=== PATIENT | female | born 1945 | race Caucasian/White ===

== ENCOUNTER → 2017-10-21 13:47 | Outpatient (CLI) | payer MEDICARE, OTHER, SELFPAY ==
[2017-10-21 16:11] LABS: Anion Gap 14 (5-15); BUN 43 mg/dL (7-18); BUN/Creat Ratio 22.5 RATIO (10-20); Calcium,Total 9.3 mg/dL (8.5-10.1); Chloride 105 mmol/L (98-107); Cholesterol 180 mg/dL (200); Creatinine, Serum 1.91 mg/dL (0.55-1.02); EST Glomerular Filtration Rate 27 mL/min (>60); Est Glom Filt Rate - Afr Amer 33 mL/min (>60); Glucose 99 mg/dL (74-106); High Density Lipoprotein 55 mg/dL; Potassium 3.4 mmol/L (3.5-5.1); Sodium Level 142 mmol/L (136-145); Thyroid Stim Hormone (TSH) 0.54 uIU/mL (0.358-3.74); Triglycerides 491 mg/dL; Uric Acid 11.6 mg/dL (2.6-6.0)
== END ==
PROVIDERS: Family Provider Family Medicine; PCP Family Medicine; Visit Provider Family Medicine
DX: I10 Essential (primary) hypertension (principal); E03.9 Hypothyroidism, unspecified; M10.9 Gout, unspecified
CPT/HCPCS: 36415; 80048; 80061; 84443; 84550

== ENCOUNTER → 2018-07-06 14:46 | Outpatient (CLI) | payer MEDICARE, OTHER, SELFPAY ==
[2018-07-06 16:24] LABS: Cholesterol 171 mg/dL (200); High Density Lipoprotein 61 mg/dL; Triglycerides 246 mg/dL; Very Low Density Lipoprotein 49 mg/dL (5-40)
== END ==
PROVIDERS: Family Provider Family Medicine; PCP Family Medicine; Referring Provider Family Medicine; Visit Provider Family Medicine
DX: E78.5 Hyperlipidemia, unspecified (principal)
CPT/HCPCS: 36415; 80061

== ENCOUNTER → 2018-10-26 14:03 | Outpatient (CLI) | payer MEDICARE, OTHER, SELFPAY ==
--- NOTE | 2018-10-26 14:10 | RAD_ITS ---
STUDY: X-RAY - LUMBAR SPINE REASON FOR EXAM: Female, 73 years old. Pain TECHNIQUE: 5 view(s) of the lumbar spine were obtained. COMPARISON: 07/23/2014 FINDINGS: There is no evidence of fracture or dislocation in the lumbar spine. There is stable scoliosis noted in the lumbar spine. There are stable moderate degenerative changes which are most pronounced at L1/L2. Again noted are atherosclerotic calcifications in the aorta. RAD/L/S Spine Min 4 Views IMPRESSION: No fracture or dislocation in the lumbar spine. Stable scoliosis and degenerative changes. Electronically Signed: Oh Aquino, at 14:45 EDT Tel , Service support ,
== END ==
PROVIDERS: Family Provider Family Medicine; PCP Family Medicine; Referring Provider Family Medicine; Visit Provider Family Medicine
DX: M54.5 Low back pain (principal)
CPT/HCPCS: 72110

== ENCOUNTER → 2019-01-02 14:25 | Outpatient (CLI) | payer MEDICARE, OTHER, SELFPAY ==
[2019-01-02 16:20] LABS: Anion Gap 6 (5-15); BUN 52 mg/dL (7-18); BUN/Creat Ratio 28.1 RATIO (10-20); Calcium,Total 8.9 mg/dL (8.5-10.1); Chloride 104 mmol/L (98-107); Cholesterol 192 mg/dL (200); Creatinine, Serum 1.85 mg/dL (0.55-1.02); EST Glomerular Filtration Rate 28 mL/min (>60); Est Glom Filt Rate - Afr Amer 34 mL/min (>60); Glucose 95 mg/dL (74-106); High Density Lipoprotein 65 mg/dL; Potassium 4.1 mmol/L (3.5-5.1); Sodium Level 139 mmol/L (136-145); Thyroid Stim Hormone (TSH) 0.33 uIU/mL (0.358-3.74); Triglycerides 205 mg/dL; Very Low Density Lipoprotein 41 mg/dL (5-40)
== END ==
PROVIDERS: Family Provider Family Medicine; PCP Family Medicine; Referring Provider Family Medicine; Visit Provider Family Medicine
DX: E03.9 Hypothyroidism, unspecified (principal); E78.5 Hyperlipidemia, unspecified
CPT/HCPCS: 36415; 80048; 80061; 84443

== ENCOUNTER → 2019-01-30 11:02 | Outpatient (CLI) | payer MEDICARE, OTHER, SELFPAY ==
--- NOTE | 2019-01-30 11:07 | RAD_ITS ---
STUDY: X-RAY - RIGHT HUMERUS REASON FOR EXAM: Female, 74 years old. Trauma pain TECHNIQUE: 3 view(s) of the humerus. COMPARISON: None. FINDINGS: Normal visualized humerus. There is no demonstrated fracture or osseous destructive process. There is no demonstrated soft tissue abnormality. Sternotomy wires are present. RAD/Humerus min 2 Views IMPRESSION: Normal x-ray examination of the humerus. Electronically Signed: More Trejo, at 19:30 EST Tel , Service support ,
--- NOTE | 2019-01-30 11:09 | RAD_ITS ---
STUDY: X-RAY - RIGHT SHOULDER REASON FOR EXAM: Female, 74 years old. Trauma pain TECHNIQUE: 4 view(s) of the shoulder. COMPARISON: None. FINDINGS: Normal glenohumeral articulation. Normal acromioclavicular joint. Normal acromion. Normal humeral head and visualized proximal humerus. The soft tissue structures are unremarkable. There is questionable increased opacity in the right lung, unclear significance. Sternotomy wires are present. RAD/Shoulder min 2 Views IMPRESSION: Normal x-ray examination of the shoulder. Questionable right lung opacity, refer to dedicated chest imaging. Electronically Signed: More Trejo, at 19:11 EST Tel , Service support ,
== END ==
PROVIDERS: Family Provider Family Medicine; PCP Family Medicine; Referring Provider Family Medicine; Visit Provider Family Medicine
DX: M25.511 Pain in right shoulder (principal); W19.XXXA Unspecified fall, initial encounter
CPT/HCPCS: 73030; 73060

== ENCOUNTER → 2019-02-22 13:27 | Outpatient (CLI) | payer MEDICARE, OTHER, SELFPAY ==
[2019-02-22 13:07] VITALS: BMI 41.1
--- NOTE | 2019-02-22 13:29 | RAD_ITS ---
HISTORY: PAIN, RECENT FALL. GRASHEY VIEW ONLY PER ORDER ADDITIONAL HISTORY: None provided. TECHNIQUE: Right shoulder one view Number of images including paperwork: 1 COMPARISON: 01/30/2019 FINDINGS: BONES: No acute fracture. JOINTS: No subluxation. Mild degenerative changes of the glenohumeral joint. SOFT TISSUES: No distinct foreign body. Sternal wires. RAD/Shoulder One View IMPRESSION: No acute osseous abnormality. at [id number] Reported and signed by: Selena Ku MD Electronically Signed: Selena Ku MD at 4:19 EST Tel , Service support ,
== END ==
PROVIDERS: Family Provider Family Medicine; PCP Family Medicine; Referring Provider Orthopaedic Surgery; Visit Provider Orthopaedic Surgery
DX: S49.91XA Unspecified injury of right shoulder and upper arm, initial encounter (principal)
CPT/HCPCS: 73020

== ENCOUNTER 2019-03-03 13:00 | Outpatient (RCR) | payer MEDICARE, OTHER, SELFPAY ==
--- NOTE | 2019-02-13 14:56 | HP.PTEVAL ---
Patient's Visit Information CHANNING CANCHOLA is a 74 year old F referred to Physical Therapy by Kishore Ricci MD with a diagnosis of R shoulder pain. Date of Evaluation: 02/13/19 Physical Therapist: Beltran Self PT, ATC - Visit Plan Frequency: 2-3x /Week Duration: 4-6 Weeks Plan: R shoulder strengthening (rot cuff), scap stab ex's, UBE, and HEP - Subjective Findings: Pt reports she fell in the [employer] parking lot 2 weeks ago which resulted in an abrasion to her L knee and pain in her R shoulder. Pt reports no PMHx of R shoulder trauma other than having shingles in that region. Pt reports she is feeling better, but notes it is very difficult for her to sleep and to get dressed secondary to R shoulder pain. No R UE tingling or numbness at this time. Pt is L hand dominant. Pt reports she had 3 falls in 5 days due to nicko on a high level of gabapentin for her LBP. Pt has had other falls in the past which were due to low blood pressure levels. Pt ambulates with the use of a quad cane for stability. 4/10 pain at rest, 7/10 pain at worst. - Pain R shoulder pain Pain Intensity (Out of 10): 4 Pain Intensity Range: 7 - Objective Neuro: B UE sensation is WNL to light touch. B bicepital reflex= 2/3. Palpation: Pt is very sore on the posterior and lateral aspects of R shoulder. No obvious deformity at this time. ROM: L shoulder flex= 80, abd= 60, ER= 20, IR min meraz; R shoulder flex= 60, abd= 60, ER= 55, IR min limited. MMT: R shoulder is grossly 3/5 and painful with all testing. Special tests: pos empty can - Goals Goal 1:: Decrease R shoulder pain x 50% to aid with sleep Goal Time Frame: 4-6 Weeks Goal 2:: Increase R shoulder flexion and abduction ROM x 30 degrees to aid with overhead activity Goal Time Frame: 4-6 Weeks Goal 3:: Increase R shoulder strength x 1 grade to aid with IADL's Goal Time Frame: 4-6 Weeks Goal 4:: I with HEP Goal Time Frame: 4-6 Weeks - Rehabilitation Potential Physical Therapy Diagnosis: R shoulder pain, weakness, and limited ROM secondary to R shoulder strain. Rehabilitation Potential: Good - Anticipated Interventions Patient/Client Instruction: Educate patient on: Condition, Plan of Care For the Purpose of:: To improve self management Therapeutic Exercise to Include: Strength training, Endurance training, Postural training, Flexibilty training, Active ROM, Scapular Strength/Stabilization For the Purpose of:: To decrease pain, To increase ROM, To improve muscle performance and motor function Cryotherapy (ice pack, ice massage): Yes For the Purpose of:: To decrease pain Thank you for the opportunity to evaluate your patient. For Medicare and Medicare HMO plans, please review the plan of care and approve it. It will need to be FAXED BACK to us at [phone] for Medicare purposes. For Medicare only, by signing this I certify the plan of care. Please let me know if there are questions or concerns regarding this plan of care. Physician Signature: Date:
--- NOTE | 2019-04-03 14:28 | HP.PT.NRP ---
HP - Discharge Summary (1) - Patient Information CHANNING CANCHOLA was seen in my office for initial evaluation on 02/13/19. The following Plan of Care was established for this patient: Initial Frequency: 2-3x /Week Initial Duration: 4-6 Weeks - Anticipated Interventions Patient/Client Instruction: Educate patient on: Condition, Plan of Care For the Purpose of:: To improve self management Therapeutic Exercise to Include: Strength training, Endurance training, Postural training, Flexibilty training, Active ROM, Scapular Strength/Stabilization For the Purpose of:: To decrease pain, To increase ROM, To improve muscle performance and motor function Cryotherapy (ice pack, ice massage): Yes For the Purpose of:: To decrease pain This patient was last seen in our office . Pertinent comments regarding their Physical therapy will appear below: Pt phoned the clinic on todays date to report that she is feeling better now and wants to be discharged. At this point I will be discontinuing this patient from physical therapy. I would be happy to see this patient again in the future if found appropriate by the physician. Thank you! Beltran Self, PT, ATC
== END 2019-03-03 19:00 | disposition home or self-care (01) ==
LOC: PT 13:00
PROVIDERS: Family Provider Family Medicine; PCP Family Medicine; Referring Provider Family Medicine; Visit Provider Family Medicine
DX: M25.519 Pain in unspecified shoulder (principal)
CPT/HCPCS: 97110; 97161; 97530

== ENCOUNTER → 2019-04-26 14:08 | Outpatient (CLI) | payer MEDICARE, OTHER, SELFPAY ==
[2019-02-22 13:07] VITALS: BMI 41.1
[2019-04-26 16:40] LABS: Free T3 2.6 pg/mL (2.18-3.98); T4 Total, Thyroxin 13.3 ug/dL (4.8-13.9); Thyroid Stim Hormone (TSH) 0.37 uIU/mL (0.358-3.74)
== END ==
PROVIDERS: PCP Family Medicine; Referring Provider Family Medicine; Visit Provider Family Medicine
DX: E03.9 Hypothyroidism, unspecified (principal)
CPT/HCPCS: 36415; 84436; 84443; 84481

== ENCOUNTER → 2019-09-06 | Outpatient (CLI) | payer MEDICARE, OTHER, SELFPAY ==
[2019-02-22 13:07] VITALS: BMI 41.1
--- NOTE | 2019-09-06 16:51 | RAD_ITS ---
STUDY: X-RAY - LEFT FOOT CLINICAL: Female, 74 years old. Left foot pain, fall -- 1st 2 images done weightbearing (per order) pt could no longer stand and sat down for lateral TECHNIQUE: 3 view(s) of the foot. COMPARISON: None. FINDINGS: Normal talus and tarsal bones. Small calcaneal spurs Normal visualized subtalar, talonavicular, calcaneocuboid, tarsal and tarsometatarsal articulations. Normal metatarsi. Normal metatarsophalangeal joint of the great toe. Normal tibial and fibular sesamoid bones. Normal interphalangeal joint of the great toe. Normal phalanges of the great toe. Normal second through fifth metatarsophalangeal joints. Mild PIP and DIP joint arthrosis. The soft tissue structures are unremarkable. 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 No demonstrated fracture or suspicious osseous lesion. Electronically Signed: Rubén Chawla MD at 7:52 EDT , Service support ,
== END | disposition home or self-care (01) ==
PROVIDERS: PCP Family Medicine; Referring Provider Family Medicine; Visit Provider Family Medicine
DX: S99.929A Unspecified injury of unspecified foot, initial encounter (principal)
CPT/HCPCS: 73630

== ENCOUNTER → 2019-09-22 08:23 | Outpatient (CLI) | payer MEDICARE, OTHER, SELFPAY ==
[2019-02-22 13:07] VITALS: BMI 41.1
--- NOTE | 2019-09-22 08:26 | CT_ITS ---
STUDY: CT BRAIN WITHOUT CONTRAST REASON FOR EXAM: Female, 74 years old. IMBALANCE RADIATION DOSAGE (If Supplied By Facility): CTDIvol = ( 44.99 ) mGy, DLP = ( 762.36 ) mGycm TECHNIQUE: Transaxial CT imaging of the brain was performed without administration of intravenous contrast material. Individualized dose optimization techniques were used for this CT. COMPARISON: No relevant priors. FINDINGS: Normal soft tissue structures. Normal calvarium. There is mild cerebral atrophy with widening of the extra-axial spaces and ventricular dilatation. There are areas of decreased attenuation within the white matter tracts of the supratentorial brain, consistent with microvascular disease changes. Normal basal ganglia and thalami. Normal brainstem. Normal cerebellum. There is no intracranial hemorrhage. There are no findings of an acute ischemic infarction. Normal visualized paranasal sinuses. CT/Brain/Head without Contrast IMPRESSION: Chronic involutional changes of the brain. Electronically Signed: Rupert Ann, at 9:09 EDT , Service support ,
== END ==
PROVIDERS: PCP Family Medicine; Referring Provider Family Medicine; Visit Provider Family Medicine
DX: R26.89 Other abnormalities of gait and mobility (principal)
CPT/HCPCS: 70450

== ENCOUNTER 2019-10-24 13:30 | Outpatient (RCR) | payer MEDICARE, OTHER, SELFPAY ==
[2019-02-22 13:07] VITALS: BMI 41.1
--- NOTE | 2019-10-09 15:00 | HP.PTEVAL ---
Patient's Visit Information CHANNING CANCHOLA is a 74 year old F referred to Physical Therapy by Dr. Kishore Ricci MD with a diagnosis of Balance issues. Date of Evaluation: 10/09/19 Physical Therapist: Rodrick Coker DPT, OCS, CSCS - Visit Plan Frequency: 2x /Week Duration: 4-6 Weeks Plan: 2x/week for 4-6 weeks for... 1. VOR balance. 2. foam balance and/or ec. 3. Gait training for safety and distance. 4/ Progression of HEP of balance, VOR and LE /postural strength to an I HEP when safety allows. - Subjective Del presents with dtr today. Because she keeps falling. Had shingles a few years ago in R arm and into ear causing vestibualr problems. Since then has had problems with falling. Gets unsteady but denies spinning. No spinning in 3 weeks ago without reason. Wa attempting to make bed when she fell 3 weeks ago. Use wh walker at all times for last couple months due to falls. Had to hold on when walking. can get off floor herself. No neuropathy. Lives alone on [facility] of [facility] with electric chair to basement. Does basic cooign adn cleaning herself and it takes a while, needs frequent rests. Dresses self, bathroom I. Shower with walkin and stool. No pain. Has LBP at times not currently. Soemtimes B shoulder pain, not currently. No exercises at home. uses pedal machine for legs. - Objective Pt walks with wh walker hunched over adn relying on it for balance and holding herself up tall. Trasnfers out of chair easily without UE. Steps require B UE and wear her out quick avoiding FW weight shift. LE AROM WFL except DF and HS whcih are very tight. reflexes 2/3 patella and achilles. Sensation WNL to gross light touch in LE B. Coordination to reciprocal toe taps and heel taps good. Heel to rowe is good. VOR walking is a challenge adn VOR seated has trouble keeping eyes ont arget with R head rotations. Strength LE 4- ankles, 4 knees, 3+ hip abd , ext and LB extensiors. Max tired adn mild SOB after 300 feet of walking, steps without walker which was safe at first on firm flat surface but less so at end with fatigue adn hunched FW. Pt describes unsteadiness as dizzyness but has no spinning today and I am unable to ellicit with position changes or head mvoements. - Balance Scores Functional Gait Assessment Score: 21 % Disability: 30.0000 CATSIB Score (Max score 120 seconds): 72 - Goals Goal 1:: Walk 300 feet at HP without wh walker or hunching over I. Goal Time Frame: 4-6 Weeks Goal 2:: 25/30 FGA to minimize fall risk. Goal Time Frame: 4-6 Weeks Goal 3:: I approp HEP to minimize future problems with balance Goal Time Frame: 4-6 Weeks Goal 4:: Pt feel 75% better with fatigue adn balance Goal Time Frame: 4-6 Weeks - Rehabilitation Potential Physical Therapy Diagnosis: Balance issues Rehabilitation Potential: Fair - Anticipated Interventions Patient/Client Instruction: Educate patient on: Condition, Plan of Care For the Purpose of:: To improve muscle performance and motor function, To increase tolerance to activity/condition/position, To improve ability of physical actions for home/community/work/leisure, To improve gait and locomotor functions, To improve safety with gait Therapeutic Exercise to Include: Strength training, Balance training, Coordination, Postural training, Flexibilty training, Gait and locomotor training For the Purpose of:: To improve gait and locomotor functions, To improve safety with gait Thank you for the opportunity to evaluate your patient. For Medicare and Medicare HMO plans, please review the plan of care and approve it. It will need to be FAXED BACK to us at [phone] for Medicare purposes. For Medicare only, by signing this I certify the plan of care. Please let me know if there are questions or concerns regarding this plan of care. Physician Signature: Date:
--- NOTE | 2019-12-21 10:01 | HP.PT.NRP ---
CHANNING CANCHOLA was seen in my office for initial evaluation on 10/09/19. The following Plan of Care was established for this patient: Initial Frequency: 2x /Week Initial Duration: 4-6 Weeks Patient/Client Instruction: Educate patient on: Condition, Plan of Care For the Purpose of:: To improve muscle performance and motor function, To increase tolerance to activity/condition/position, To improve ability of physical actions for home/community/work/leisure, To improve gait and locomotor functions, To improve safety with gait Therapeutic Exercise to Include: Strength training, Balance training, Coordination, Postural training, Flexibilty training, Gait and locomotor training For the Purpose of:: To improve gait and locomotor functions, To improve safety with gait This patient was last seen in our office 10/24/19. Pertinent comments regarding their Physical therapy will appear below: Pt seen 4 visits of POC but cancelled/did not attend the rest of the POC. at this point, it has been over 6 weeks adn I will discontinue due to nonattendance. At this point I will be discontinuing this patient from physical therapy. I would be happy to see this patient again in the future if found appropriate by the physician. Thank you! Rodrick Coker, DPT, OCS, CSCS
== END 2019-10-24 19:00 | disposition home or self-care (01) ==
LOC: PT 13:30
PROVIDERS: PCP Family Medicine; Visit Provider Family Medicine
DX: R26.9 Unspecified abnormalities of gait and mobility (principal)
CPT/HCPCS: 97110; 97162

== ENCOUNTER 2019-11-30 14:11 | Inpatient (IN) | payer MEDICARE, OTHER, SELFPAY ==
[2019-02-22 13:07] VITALS: BMI 41.1
[2019-11-30] VITALS (12 sets, daily range): BP systolic 110–137; BP diastolic 51–80; PULSE 58–81; RESP 16–20; TEMP 36.2–37.1; O2SAT 86–100; BMI 42.4
[2019-11-30 09:23] LABS: International Normalized Ratio 1.7; Prothrombin Time (Protime)PT. 19.6 SECONDS (11.7-14.9)
[2019-11-30 09:45] LABS: Thyroid Stim Hormone (TSH) 5.73 uIU/mL (0.358-3.74)
--- NOTE | 2019-11-30 10:05 | RAD_ITS ---
STUDY: X-RAY - LEFT ANKLE REASON FOR EXAM: Female, 74 years old. BIMALLEOLAR FX REPAIR TECHNIQUE: 3 view(s) of the ankle. COMPARISON: Comparison is made with prior study 11/30/2019 FINDINGS: Intraoperative imaging provided for open reduction internal fixation of the bimalleolar fracture. There is good alignment. RAD/Ankle min 3 Views IMPRESSION: Intraoperative imaging provided for ORIF of the bimalleolar fractures. There is good alignment. Electronically Signed: Rupert Ann, at 12:36 EDT , Service support ,
[2019-11-30] MEDS: Lactated Ringers 1,000 ML 75 ML IV ×2 (10:15→21:54)
--- NOTE | 2019-11-30 14:23 | HP.PCM_ITS ---
Problem List (1) Fracture of ankle, bimalleolar, left, closed Status: Acute Qualifiers: Encounter type: initial encounter Qualified Code(s): S82.842A - Displaced bimalleolar fracture of left lower leg, initial encounter for closed fracture (2) Spinal stenosis Status: Chronic (3) Hypothyroidism Status: Chronic Qualifiers: Hypothyroidism type: acquired Qualified Code(s): E03.9 - Hypothyroidism, unspecified (4) HTN (hypertension) Status: Chronic Qualifiers: Hypertension type: essential hypertension Qualified Code(s): I10 - Essential (primary) hypertension (5) Hyperlipidemia Status: Chronic Qualifiers: Hyperlipidemia type: familial hypercholesterolemia Qualified Code(s): E78.01 - Familial hypercholesterolemia (6) History of venous thrombosis and embolism Status: Chronic (7) History of heart valve replacement Status: Chronic (8) Esophageal reflux Status: Chronic Qualifiers: Esophagitis presence: esophagitis presence not specified Qualified Code(s): K21.9 - Gastro-esophageal reflux disease without esophagitis (9) History of cystitis Status: Chronic History of Present Illness Date of Admission: 11/30/19 Chief Complaint: Left ankle pain secondary to bimalleolar fracture The patient is a 74 year old F with a past medical history consistent of coronary artery disease, congestive heart failure, thyroid disease, arthritis, aortic aneurysm, who suffered an injury to her left ankle on October 27, 2019. Patient states she was getting out of her car, and had her left foot and ankle caught underneath the cyst to see. Patient unfortunately lost her balance, and felt immediate pain in her left ankle. Patient was sent to the emergency department, where she was diagnosed with a bimalleolar ankle fracture. When patient initially saw me in the office, she elected for conservative therapy. After speaking with her family, she then elected for surgical intervention. Medical clearance was obtained from her primary care physician, electrician supervisor airplane, and neurologist, who all ultimately cleared her for surgical intervention. Her last dose of warfarin was on November 25. After speaking with the patient, I discussed the risks, benefits, possible outcomes, possible complications of the procedure. This included but not limited to delayed or nonhealing wounds, delayed or nonhealing bone, DVT, infection, decreased function of limb, continued pain, loss of limb, loss of life. I discussed with the patient that due to her significant medical history, she is at an even higher risk of postoperative complications. All the patient questions were answered to her satisfaction and all of her concerns were addressed. No guarantees were made as to the outcome of the procedure. Patient understood all aspects of the procedure, and was agreeable to surgical intervention. Surgical intervention was performed today, November 30, 2019. Patient was admitted after the surgery for postoperative pain control and assistance to placement to the transitional care unit versus a subacute nursing facility. Patient does live at home alone, and is unable to perform activities while remaining nonweightbearing to the left lower extremity. I believe that for her health and safety that she would benefit from placement in an assistive facility. Past Medical History Past Medical History (Chronic Problems): Chronic Problems Spinal stenosis (Chronic) Hypothyroidism (Chronic) HTN (hypertension) (Chronic) Hyperlipidemia (Chronic) History of venous thrombosis and embolism (Chronic) History of heart valve replacement (Chronic) Esophageal reflux (Chronic) History of cystitis (Chronic) Medical History: Medical History (Last Updated 11/30/19 @ 14:[address] Tank Parker, DPM) Seizure R56.9 Allergies celecoxib [From Celebrex] Allergy (Severe, Verified 11/30/19 09:08) rash, swelling, difficulty breathing Sulfa (Sulfonamide Antibiotics) Allergy (Severe, Verified 11/30/19 09:08) rash, swelling, difficulty breathing Home Medications: Ambulatory Orders Medication Instructions Recorded allopurinol 100 mg tablet 100 mg PO DAILY #90 tab 02/22/19 duloxetine 60 mg capsule,delayed 60 mg PO DAILY #90 cap 02/22/19 release gabapentin 300 mg capsule 300 mg PO QHS #90 cap 02/22/19 levothyroxine 100 mcg tablet 100 mcg PO DAILY #90 tab 02/22/19 metoprolol succinate 25 mg 25 mg PO DAILY #90 tab 02/22/19 tablet,extended release 24 hr nortriptyline 75 mg capsule 75 mg PO QHS #90 cap 02/22/19 omeprazole 40 mg capsule,delayed 40 mg PO DAILY #90 cap 02/22/19 release rosuvastatin 20 mg tablet 20 mg PO QHS #90 tab 02/22/19 trazodone 50 mg tablet 50 mg PO QHS #90 tab 02/22/19 warfarin 3 mg tablet 3 mg PO SUMOWETHFRSA #90 tab 02/22/19 Aspirin [Adult Aspirin Regimen] 81 mg PO DAILY 11/27/19 Cholecalciferol (Vitamin D3) 5,000 unit PO DAILY 11/27/19 [Vitamin D3] Flecainide [Tambocor] 100 mg PO BID 11/27/19 Furosemide [Lasix] 40 mg PO DAILY 11/27/19 Levetiracetam [Keppra] 500 mg PO BID 11/27/19 Magnesium Oxide [Magnesium] 400 mg PO DAILY 11/27/19 Nitroglycerin 0.4 mg SL PRN PRN 11/27/19 Potassium Chloride 10 meq PO DAILY 11/27/19 Warfarin [Coumadin ([facility]KC)] 4.5 mg PO TU 11/27/19 Surgical History: appendectomy - 1974, cataract - 2017, hysterectomy - 1974, - - Heart valve replacement in 2001, Aortic Aneurysm repair 2001, Cardiac window for tamponade 2001, Loop recorder in chest 2017 Psychiatric History: Depression [employer] SERVER History: No pertinent [employer]OUNT[employer] SERVER history Lives: Alone Smoking Status: Never smoker Tobacco Use: Non-smoker Alcohol: Rare Drugs: None - *Family History Paternal History Items: Clotting Disorder, Heart Disease, Hypertension, - - Arthritis Maternal History Items: Cancer, Heart Disease, Hypertension, Stroke, - - Arthritis Review of Systems Constitutional: Denies: Anorexia, Chills, Fever Eyes: Denies: Blurred vision HEENT: Denies: Difficulty Hearing, Difficulty Swallowing Cardiovascular: Denies: Chest Pain, Claudication, Chest Pressure, Chest Tightness Respiratory: Denies: Cough, Pleuritic Pain, Shortness of Breath, Shortness of breath at rest Gastrointestinal: Denies: Abdominal Pain, Constipation, Diarrhea Genitourinary: Denies: Dysuria Musculoskeletal: Reports: Joint Pain - admits to left ankle pain Skin: Denies: Dryness, Jaundice, Lesions Neurological: Reports: Balance problems, Headaches, Incoordination Psychiatric: Reports: Depression Endocrine: Denies: Change in Body Habitus, Heat/ Cold Intolerance, Polydipsia, Polyuria Hematologic/ Lymphatic: Reports: Anemia. Denies: Adenopathy VTE Information - Inpt Only VTE Present on Admission: No VTE Mechan Device Prophylaxis: SCD's VTE Pharm Prophylaxis ordered?: Yes Patient Problems: Active and Suspected Problems Fracture of ankle, bimalleolar, left, closed (Acute) Subjective: Patient was seen at bedside resting comfortably. Patient admits to moderate pain in her left ankle status post left ankle open reduction with internal fixation of the bimalleolar fracture. Overall, patient states that her pain is well controlled. Patient denies any acute complaints at this time. Currently, patient denies fever, chills, nausea, vomiting, shortness of breath, chest pain. Patient denies left leg pain. Objective: Lower extremity physical exam: Dressing is clean, dry, intact to left lower extremity with no evidence of strikethrough noted. Foot and ankle appear in a rectus position at this time. Capillary fill time is less than 3 seconds to the digits of the left foot. Neurological: Patient is unable to feel digits the left foot secondary to local nerve block given. Negative Yeager's sign noted of the left lower extremity - Physical Exam Vitals/I&O's: Vital Signs Temp Pulse Resp BP Pulse Ox 98.8 F 59 L 16 115/59 L 96 11/30/19 09:09 11/30/19 09:09 11/30/19 09:09 11/30/19 09:09 11/30/19 09:09 Oxygen Delivery Method Room Air Weight: 112.037 kg Body Mass Index (BMI) 42.4 Intake and Output for Last 24 Hours 11/28/19 11/29/19 11/30/19 23:59 23:59 23:59 Intake Total 115 / 115 Balance 115 / 115 General: Alert, Oriented x3, Cooperative, No apparent distress HEENT: Atraumatic, PERRLA Oral: Moist Mucosa Neck: Supple, No JVD Lungs: Clear to auscultation, Rhonchi Cardiovascular: Normal S1, Normal S2, Bradycardic Abdomen: Bowel Sounds Present, Soft, Non Tender, Non-Distended, Obese Extremities: Capillary Refill Less than 3 Seconds, No Calf Tenderness, Diminished Peripheral Pulses Skin: No rashes, No breakdown Musculoskeletal: Tenderness - Minimal tenderness to left ankle Neurological: Neuro grossly intact Psych/Mental Status: Alert and oriented to time, place, person, mood and affect Laboratory Results 11/30/19 08:55: TSH 5.73 H 11/30/19 08:55: Levetiracetam Pending 11/30/19 08:55: PT 19.6 H, INR 1.7 Current Medications Lactated Ringer's () 1,000 mls @ 75 mls/hr IV .[id number] [facility] Assessment/Plan All Active Problems Fracture of ankle, bimalleolar, left, closed (Acute) This is a 74-year-old female with a significant past medical history who suffered a left ankle bimalleolar fracture. Surgical intervention was performed today, November 30, 2019. Plan: Patient chart reviewed and patient evaluated. Full discussion had with the patient about the patient's current clinical condition. Radiographs shown and reviewed with the patient in detail. At this time, I recommend that the dressing to the left lower extremity remain clean, dry, intact. The dressing is to not be removed and the dressing is not to get wet. The dressing may be reinforced as needed. I recommend nonweightbearing to the left lower extremity at this time with assistive devices. A physical therapy consultation was placed to assist in nonweightbearing. I recommend elevation of the left foot above the level of heart as often as possible. This will help in edema control. I recommend ice around the left knee 20 minutes on, 20 minutes off, every hour while she is awake for pain control. Pain medications ordered for patient to take as needed. As per request of her electrician supervisor airplane, patient's warfarin will be restarted tonight, November 30, 2019. This will assist in her DVT prophylaxis as well. SCDs were placed on the right side. Broad-spectrum IV antibiotics were continued to assist in infection control. A consultation was placed to the hospitalist to assist in medical management of this complicated patient. I do appreciate all help with managing this patient. Thank you for your assistance. The patient does live at home alone, and is unable to remain at home with nonweightbearing to the left lower extremity. Due to this, I believe that the patient would benefit from transfer to the transitional care unit or a subacute nursing facility. A consultation was placed to the social sciences chair to assist this transfer. I do appreciate all help with managing this patient. Thank you for your assistance. Postoperative prescriptions were given to the patient already and the patient does have them filled. They are for pain, and antibiotics. Patient is normal medications were resumed. Thank you to all for assistance with this patient. Inpatient E&M: [id number] Init Hosp L2
[2019-11-30] MEDS: Bupivacaine Mpf 0.5% 30 ML VIAL (14:31)
--- NOTE | 2019-11-30 14:43 | PCM.OPRPT ---
Problem List (1) Fracture of ankle, bimalleolar, left, closed Status: Acute Qualifiers: Encounter type: initial encounter Qualified Code(s): S82.842A - Displaced bimalleolar fracture of left lower leg, initial encounter for closed fracture (2) Spinal stenosis Status: Chronic (3) Hypothyroidism Status: Chronic Qualifiers: Hypothyroidism type: acquired Qualified Code(s): E03.9 - Hypothyroidism, unspecified (4) HTN (hypertension) Status: Chronic Qualifiers: Hypertension type: essential hypertension Qualified Code(s): I10 - Essential (primary) hypertension (5) Hyperlipidemia Status: Chronic Qualifiers: Hyperlipidemia type: familial hypercholesterolemia Qualified Code(s): E78.01 - Familial hypercholesterolemia (6) History of venous thrombosis and embolism Status: Chronic (7) History of heart valve replacement Status: Chronic (8) Esophageal reflux Status: Chronic Qualifiers: Esophagitis presence: esophagitis presence not specified Qualified Code(s): K21.9 - Gastro-esophageal reflux disease without esophagitis (9) History of cystitis Status: Chronic Report of Operation Date of Procedure: 11/30/19 Pre-Operative Diagnosis: 1. Left ankle bimalleolar fracture, closed, displaced Post-Operative Diagnosis: Left ankle bimalleolar fracture, closed, displaced Surgery/Procedure Performed:: Open reduction with internal fixation of left ankle bimalleolar fracture. Description of Surgical Findings:: Consistent with diagnosis. Reduction of deformity was achieved and held with internal fixation. heavy equipment operating engineer: Annelise Pineda NP Type of Anesthesia:: General/Regional - A popliteal and saphenous block was given to the left lower extremity. Anesthesiologist: Rodrick Koch Special Medications: 2 g of Ancef given preoperatively Specimen's removed: None Drains: None Estimated Blood Loss (mL): 50 Description of Procedure: Hemostasis: Pneumatic thigh tourniquet placed at the level of the left thigh at 300 mmHg for 110 minutes Estimated blood loss is 50 mL Materials: #1. Oscar 4 hole distal lateral fibula plate. 2. Oscar 4.0 x 50 mm Asnis screw. 3. Oscar 3.5 x 10 mm locking screw. 4. Oscar 3.5 x 12 mm locking screw x2. 5. Omaha 3.5 x 12 mm nonlocking screw. 6. Oscar 3.5 x 14 mm nonlocking screw x2. 7. Omaha 3.5 x 28 mm nonlocking screw. 8. Size 0 Vicryl. 9. Size 2-0 Vicryl. 10. Size 3-0 Vicryl. 11. Size 3-0 nylon Injectables: 5 mL of 0.5% Marcaine plain given a proximal saphenous nerve block fashion Complications: None Condition: Stable Indications: The patient is a 74 year old F with a past medical history consistent of coronary artery disease, congestive heart failure, thyroid disease, arthritis, aortic aneurysm, who suffered an injury to her left ankle on October 27, 2019. Patient states she was getting out of her car, and had her left foot and ankle caught underneath the cyst to see. Patient unfortunately lost her balance, and felt immediate pain in her left ankle. Patient was sent to the emergency department, where she was diagnosed with a bimalleolar ankle fracture. When patient initially saw me in the office, she elected for conservative therapy. After speaking with her family, she then elected for surgical intervention. Medical clearance was obtained from her primary care physician, qa internship, and neurologist, who all ultimately cleared her for surgical intervention. Her last dose of warfarin was on November 25. After speaking with the patient, I discussed the risks, benefits, possible outcomes, possible complications of the procedure. This included but not limited to delayed or nonhealing wounds, delayed or nonhealing bone, DVT, infection, decreased function of limb, continued pain, loss of limb, loss of life. I discussed with the patient that due to her significant medical history, she is at an even higher risk of postoperative complications. All the patient questions were answered to her satisfaction and all of her concerns were addressed. No guarantees were made as to the outcome of the procedure. Patient understood all aspects of the procedure, and was agreeable to surgical intervention. Surgical intervention was performed today, November 30, 2019. Patient was admitted after the surgery for postoperative pain control and assistance to placement to the transitional care unit versus a subacute nursing facility. Patient does live at home alone, and is unable to perform activities while remaining nonweightbearing to the left lower extremity. I believe that for her health and safety that she would benefit from placement in an assistive facility. Patient was agreeable to this. Operative report: Before the patient was brought to the operating room, the risks, benefits, possible outcomes, possible complications of the procedure were discussed with the patient once again. These include but not limited to delayed or nonhealing wounds, delayed or nonhealing bone, DVT infection, decreased function of limb, continued pain, loss of limb, loss of life. All the patient's questions were answered to her satisfaction and all of her concerns were addressed. No guarantees were made as to the outcome of the procedure. Patient understood all aspects of the procedure, and consent was then signed by the patient. Before the patient was brought to the operating room, the anesthesiologist administered a popliteal block to the left lower extremity. Patient was then brought to the operating room and placed on the operating table in a supine position. After timeout, general anesthesia was obtained and anesthesia to control the airway. They also took control of IV access. Next, well-padded pneumatic thigh tourniquet was placed the level of the left thigh. Adequate padding was placed in all pressure points. The left foot, ankle, leg were then scrubbed, prepped, draped in the usual sterile manner. Attention was then directed to the lateral aspect of the left ankle. At this time, radiographic evaluation was used to determine the distal tip of the lateral malleolus, fibular fracture, and lateral aspect of the distal one third of the fibular shaft. Attention was then directed to the medial malleolus, where the distal tip of the medial malleolus along with the medial malleolar fracture was identified on radiographic evaluation and marked on the patient. Next, the left foot, ankle, leg were then elevated and exsanguinated via Esmarch and inflation pneumatic thigh tourniquet was performed to 300 mmHg. Attention was then directed back to the lateral aspect of the left ankle. At this time, a #15 blade was used to perform an incision starting at the distal aspect of the distal tip of the lateral malleolus extending proximally to the lateral aspect of the distal one third of the fibular shaft. This incision was approximately 8 cm in length. This incision was deepened utilizing sharp and blunt dissection. Care was taken to retract all vital neural and vascular structures. All bleeders were cauterized and ligated as necessary. Next, a linear periosteal incision was made in line with the original skin incision. The periosteal and capsular structures then reflected anteriorly and posteriorly, thus exposing the fibula and the fractures at the operative site. At this time, any fibrous tissue contained within the fracture sites were removed via curette and osteotomes. The surgical site was irrigated with copious amounts of normal sterile saline. Next, the fibular fracture was then reduced and held via temporary fixation. Radiograph evaluation was then performed. The fibula fracture was noted to be reduced from preoperative assessment. The fibula is noted to be out the length at this time, and the lateral ankle joint mortise was noted to be intact. There was a minimal posterior spike noted on the fibula. At this time, a Oscar 3.5 x 28 mm nonlocking screw was placed as perpendicular to the fracture as possible. This was inserted in standard AO fixation. Of note during insertion of the screw was the adequate compression of the fracture fragments. Furthermore, no shifting any of the fragments occurred during insertion of the screw. Once the screw was fully inserted, all temporary fixation was then removed. Radiograph evaluation was then performed once again. The fibula was noted to be held in the corrected reduced position with this interfragmentary screw. At this time, the Omaha 4 hole fibular plate was placed over the lateral aspect of the fibula. Radiograph evaluation was then performed to determine correct positioning. Once correct positioning was had, this was held via temporary fixation. This plate was held to the lateral aspect of the fibula via a mixture of nonlocking and locking screws. Of note during insertion of the screws was the adequate compression of the plate to the bone. Furthermore, no shifting any of the fragments occurred during insertion of the screws. Once all screws were fully inserted, all temporary fixation was then removed. Radiograph evaluation was then performed. The fibula was noted to be out the length at this time. It was held in the reduced position via the internal fixation. The lateral ankle joint mortise was noted to be intact at this time. This time, live radiograph evaluation was used to perform the cotton and hook test to evaluate the syndesmosis. No evidence of widening of the syndesmosis was noted. The syndesmosis was deemed intact at this time. Attention was then directed to the medial malleolus of the left ankle. At this time, a curvilinear incision was made starting at the medial portion of the medial malleolus extending distally and anteriorly past the distal tip of the medial malleolus. This incision was approximately 4 cm in length. This incision was deepened utilizing sharp and blunt dissection. Care was taken retract all vital neural and vascular structures. All bleeders were cauterized and ligated as necessary. At this time, a similar incision was made in the deltoid ligament to that of the skin incision. The deltoid ligament was then reflected anteriorly and posteriorly, thus exposing the medial malleolus and the fracture at the operative site. At this time, the medial malleolar fracture was reduced and held with the K wires for the 4-0 screws. Two K wires were used. Radiograph evaluation was then performed. The medial malleolus was noted to be back in a reduced position. The medial ankle joint mortise was noted to be intact. At this time, Oscar 4.0 Asnis screws were placed over the K wires and inserted in standard fixation. Of note during insertion of the screws was the adequate compression of the medial malleolus fracture. Furthermore, no shifting of any of the screws occurred during insertion. Once the screws were fully inserted, all temporary fixation was then removed. Radiograph evaluation was then performed. The medial malleolus screws were noted to hold the medial malleolus in the corrected reduced position. At this time, radiograph evaluation was then performed once again. The fibula was noted to be out the length at this time. The fixation on the lateral malleolus was noted to hold the fibula in the corrected reduced position. The fixation of the medial malleolus was noted to hold the medial malleolus in the corrected reduced position. The ankle joint mortise was noted to be intact at this time. A normal tibiofibular overlap was noted. Each surgical site was then irrigated with copious amounts of normal sterile saline. The deltoid ligament on the medial side was reapproximated coapted utilizing size 2-0 Vicryl and 0 Vicryl. The subcutaneous tissues on the medial surgical site were reapproximated coapted utilizing size 3-0 Vicryl. The skin of the medial surgical site was reapproximated coapted utilizing size 3-0 nylon in a horizontal mattress fashion. The periosteal capsular structures on the lateral surgical site were reapproximated coapted utilizing size 0 Vicryl and 2-0 Vicryl. The subcutaneous tissues were reapproximated coapted utilizing size 2-0 Vicryl and 3-0 Vicryl. The skin was reapproximated coapted utilizing size 3-0 nylon in a simple interrupted and horizontal mattress fashion. At this time, the pneumatic thigh tourniquet was then released and a prompt hyperemic response noted to the entirety of the left lower extremity. Each surgical site was then dressed with Betadine soaked gauze, and a dry sterile dressing consisting of 4 x 4 gauze, ABD pads, wrapped with Kerlix. The left foot and ankle were then wrapped with an Ag bandage. Next, a stockinette was placed over the left lower extremity. Cast padding was wrapped for the metatarsal heads extending proximally to level just distal to the tibial tuberosity. A posterior splint was fashioned to the left lower extremity and was adhered to the left lower extremity utilizing Ag bandages. Care was taken make sure that the foot and ankle held in neutral position as the posterior splint dried. Neurovascular status was assessed at the end of the application and deemed intact to left lower extremity. The patient tolerated the anesthesia of the procedure well and was transported to the PACU with vital signs stable and neurovascular status intact to left lower extremity. After period of postoperative monitoring, patient will be admitted for pain management and hopeful transition to transitional care unit versus subacute nursing facility. The veterinary assistant technician, the nurse practitioner, was utilized throughout the entire procedure. She helped with patient positioning, holding of limb, holding of retractors. She helped with exposure throughout. She helped with bandage application, and cast application. Without the veterinary assistant technician, surgical time would have been increased and surgical outcome could have been less optimal. - Complications None - Admit VTE Documentation VTE Present on Admission: No VTE Mechan Device Prophylaxis: SCD's VTE Pharm Prophylaxis ordered?: Yes
--- NOTE | 2019-11-30 15:04 | PCM.DC.ORTHO ---
Discharge Diet: 1800 Calorie Control Diet Discharge Activity: May Not Drive, May Not Shower, Use Walker, Use Crutches Weight Bearing Status: No weight bearing Keep extremity elevated above heart level: Left Leg Additional Activity Instructions:: 1. Keep the dressing to left leg clean, dry, intact. Do not get dressing wet. Do not remove dressing. If get dressing wet, call office for further instruction. 2. Elevate left foot above level of heart as often as possible. 3. Ice around left knee 20 minutes on, 20 minutes off, every hour while you are awake until follow-up appointment. 4. No walking or standing on left foot. No placing weight on left foot. Use crutches/walker/wheelchair for assistance. 5. Begin taking doxycycline (antibiotic) twice a day upon transfer. 6. Begin taking pain medication as needed upon transfer. 7. Continue taking Coumadin as directed by your emergency vehicle operations instructor. 8. Patient is to follow-up with me in the [facility] office in 1 week for further postoperative care. Call your doctor if your incision/area has: Continuous Slow Oozing, Sudden Increased Bleeding, Increased Pain/ Swelling Call your doctor if you observe: Fever of 101 or Higher, Coldness, Increased Pain, Inability to have a bowel movement, Shortness of breath, Chest pain, Increased palpitations (irregular heartbeat), Calf discomfort Cleanse incision/area with: Keep Dressing Clean & Dry Allergies/Adverse Reactions: Allergies celecoxib [From Celebrex] Allergy (Severe, Verified 11/30/19 09:08) rash, swelling, difficulty breathing Sulfa (Sulfonamide Antibiotics) Allergy (Severe, Verified 11/30/19 09:08) rash, swelling, difficulty breathing Medications to take at Discharge allopurinol 100 mg tablet 100 mg PO DAILY #90 tab 02/22/19 duloxetine 60 mg capsule,delayed release 60 mg PO DAILY #90 cap 02/22/19 gabapentin 300 mg capsule 300 mg PO QHS #90 cap 02/22/19 levothyroxine 100 mcg tablet 100 mcg PO DAILY #90 tab 02/22/19 metoprolol succinate 25 mg tablet,extended release 24 hr 25 mg PO DAILY #90 tab 02/22/19 nortriptyline 75 mg capsule 75 mg PO QHS #90 cap 02/22/19 omeprazole 40 mg capsule,delayed release 40 mg PO DAILY #90 cap 02/22/19 rosuvastatin 20 mg tablet 20 mg PO QHS #90 tab 02/22/19 trazodone 50 mg tablet 50 mg PO QHS #90 tab 02/22/19 warfarin 3 mg tablet 3 mg [facility] #[facility] tab 02/22/19 Aspirin [Adult Aspirin Regimen] 81 mg PO DAILY 11/27/19 Cholecalciferol (Vitamin D3) [Vitamin D3] 5,000 unit PO DAILY 11/27/19 Flecainide [Tambocor] 100 mg PO BID 11/27/19 Furosemide [Lasix] 40 mg PO DAILY 11/27/19 Levetiracetam [Keppra] 500 mg PO BID 11/27/19 Magnesium Oxide [Magnesium] 400 mg PO DAILY 11/27/19 Nitroglycerin 0.4 mg SL PRN PRN 11/27/19 Potassium Chloride 10 meq PO DAILY 11/27/19 Warfarin [Coumadin ([facility])] 4.5 mg PO TU 11/27/19 Primary Care Physician: Kishore Ricci MD [Primary Care Provider] - Test Results: Test results from this visit will be discussed in further detail at your follow-up appointment, if applicable. Please Follow Up With: Tank Parker DPM When: on December 08, 2019 at scheduled appt in [facility] Proposed Discharge Date: 12/01/19
--- NOTE | 2019-11-30 15:05 | RAD_ITS ---
STUDY: X-RAY - LEFT ANKLE REASON FOR EXAM: Female, 74 years old. post op ORIF left ankle fracture TECHNIQUE: 3 view(s) of the ankle. COMPARISON: Prior intraoperative left ankle radiographs of 11/30/2019 FINDINGS: Anatomic reduction and fixation of the distal fibular fracture with a lateral side contour compression plate and one independent lag screw. Anatomic realignment and fixation of the fracture through the medial malleolus with 2 partially threaded malleolar screws. Normal tibiotalar articulation and ankle mortise. Normal visualized talus and calcaneus. The visualized subtalar, talonavicular, calcaneocuboid and tarsal articulations are normal. The extremity is stabilized in a posterior plaster splint with the ankle in a neutral position. RAD/Ankle min 3 Views IMPRESSION: Anatomic realignment and stabilization of the distal fibula and medial malleolar fractures with hardware as described above. No untoward bone, joint or hardware findings. Electronically Signed: Mayte Whiteside MD at 15:49 EDT , Service support ,
--- NOTE | 2019-11-30 16:45 | CASEMGMT ---
Social Work Note SW updated that pt is requested RU vs TCU. SW spoke with Desire with RU. Desire states pt would qualify for RU. SW in to speak with pt. Pt's daughter Fátima present in room. Pt gave this worker permission to speak to her in front of her guest. Pt confirms that she wishes to discharge to either RU or TCU with RU being first preference. Pt's daughter Fátima stated that pt will have a follow up appointment with Dr. Parker and Dr. Parker will not be able to see pt while on RU so pt will need to be transported to appointment and asked about transportation to follow up appointment. RUBY explained that this worker will check with RU to determine how they do follow up appointments, Fátima states she will not be able to transport pt to follow up appointment. SW placed a call to referral line and left referral and asked about transportation to follow up appointment. Plan: RU pending acceptance Dara Auguste SPECIAL AGENT, PRACTICE REPRESENTATIVE
--- NOTE | 2019-11-30 17:27 | PCM.PN.HOSP ---
Patient Problems: Active and Suspected Problems (Last Updated 11/30/19 @ 14:[address] Tank Parker, SARAH) Fracture of ankle, bimalleolar, left, closed (Acute) Subjective: Ms Mckeon is a 74 yo female who was admitted on 11/30/2019 for an ORIF of her L ankle. On 10/27/2019 she was getting out of her car and had what is now known to be a seizure (new seizure d/o was dx recently) and caught her foot when she fell. She initially opted for conservative mgt but now, after discussing further with her family, wanted surgery. She was medically cleared by PCP, neurology,and cardiology. She is on Coumadin for a mechanical AV and her last dose was 11/25. her warfarin is to be restarted tonight per her rv servicer request with no bridging recommended. She is now feeling well except for some burning in her ankle and she was started on keppra for her seizures and has not had any seizures since. Vitals/I&O's: Vital Signs Temp Pulse Resp BP Pulse Ox 97.3 F L 58 L 18 110/80 95 11/30/19 16:02 11/30/19 16:02 11/30/19 16:02 11/30/19 16:02 11/30/19 16:02 Oxygen Flow Rate (L/min) 3 Oxygen Delivery Method Room Air Weight: 112.037 kg Body Mass Index (BMI) 42.4 Intake and Output for Last 24 Hours 11/28/19 11/29/19 11/30/19 23:59 23:59 23:59 Intake Total 1115 / 1115 Balance 1115 / 1115 General: Alert, Oriented x3, Cooperative, No apparent distress, Well developed, Well nourished, - - Older WF sitting up in bed watching TV HEENT: Atraumatic, PERRLA, EOMI, Normocephalic, EAC Clear Oral: Moist Mucosa, No Gingival or Mucosal Lesions/ Ulcerations Neck: Supple, Negative Carotid Bruits, Trachea Midline, Thyroid Normal Size and Texture Lungs: Clear to auscultation, Normal air movement, No rhonchi, No wheeze, No rales Cardiovascular: Regular rate, Regular Rhythm, Normal S1, Normal S2, No murmurs, No Ectopic Activity, No rub noted, No Gallop Abdomen: Bowel Sounds Present, Soft, Non Tender, Non-Distended, No Hepato-splenomegaly, Obese, No hernias noted Extremities: No clubbing, No cyanosis, No edema, Capillary Refill Less than 3 Seconds, No Calf Tenderness, Peripheral Pulses Normal Skin: No rashes, No breakdown Musculoskeletal: No Tenderness to Palpation of Joints or Extremities, No Muscle Wasting Lymphatic: No Cervical, Supraclavicular, or Inguinal Adenopathy Neurological: Cranial nerves II-XII grossly intact, Deep Tendon Reflexes 2+/4 and Symmetrical, Neuro grossly intact, Motor Exam 5/5 strength throughout Psych/Mental Status: Normal Affect, Appropriate, Alert and oriented to time, place, person, mood and affect Laboratory Results 11/30/19 08:55: TSH 5.73 H 11/30/19 08:55: Levetiracetam Pending 11/30/19 08:55: PT 19.6 H, INR 1.7 Current Medications Acetaminophen (Tylenol) 650 mg PO Q4H PRN PRN PRN Reason: Pain 1-10 or Fever Hydrocodone Bitart/Acetaminophen (Anna 5mg-325mg) 1 - 2 tablet PO Q6H PRN PRN PRN Reason: Pain Score 1-5/10 Allopurinol (Zyloprim) 100 mg PO DAILY@0800 [facility] Aspirin (Ecotrin) 81 mg PO DAILY@0800 [facility] Atorvastatin Calcium (Lipitor) 40 mg PO QHS [facility] Cholecalciferol (Vitamin D (25mcg)) 5,000 unit PO DAILY [facility] Docusate Sodium (Colace) 100 mg PO BID PRN PRN PRN Reason: CONSTIPATION Duloxetine HCl (Cymbalta) 60 mg PO DAILY [facility] Flecainide Acetate (Tambocor) 100 mg PO BID [facility] Furosemide (Lasix) 40 mg PO DAILY [facility] Gabapentin (Neurontin) 300 mg PO QHS [facility] Hydromorphone HCl (Dilaudid Inj) 1 mg IV Q2H PRN PRN PRN Reason: Pain Score 6-10/10 Lactated Ringer's () 1,000 mls @ 75 mls/hr IV .[id number] [facility] Last Admin: 11/30/19 10:15 Dose: 75 mls/hr Documented by: Cefazolin Sodium 2 gm/ Sodium (Chloride) 110 mls @ 150 mls/hr IV Q8H PABLITO Sodium Chloride () 250 mls @ 15 mls/hr IV .[id number] PRN PRN Reason: Saline Flush Sodium Chloride () 250 mls @ 15 mls/hr IV .[id number] PRN PRN Reason: Additional IVPB Infusion Influenza Virus Vaccine Quadrival (Flucelvax /Fluzone ) 0.5 ml IM .ONCE ONE Stop: 12/01/19 10:01 Levetiracetam (Keppra Tablet) 500 mg PO BID [facility] Levothyroxine Sodium (Synthroid) 100 mcg PO DAILY@0600 [facility] Magnesium Chloride (Mag64) 128 mg PO DAILY [facility] Metoprolol Succinate (Toprol Xl (Beta Mani)) 25 mg PO DAILY [facility] Nitroglycerin (Nitrostat) 0.4 mg SUBLINGUAL Q5M PRN PRN Reason: CARDIAC/CHEST PAIN Nortriptyline HCl (Pamelor) 75 mg PO QHS [facility] Ondansetron HCl (Zofran) 8 mg PO Q8H PRN PRN PRN Reason: NAUSEA/VOMITING Oxycodone HCl (Oxyir) 5 mg PO Q6H PRN PRN PRN Reason: Pain Score 6-10/10 Pantoprazole Sodium (Protonix) 40 mg PO DAILY [facility] Potassium Chloride (K-Dur) 10 meq PO DAILY@0800 [facility] Promethazine HCl (Phenergan) 25 mg IM Q8H PRN PRN PRN Reason: Nausea/vomiting Sodium Chloride () 10 - 40 ml IV UD PRN PRN Reason: SALINE FLUSH Trazodone HCl (Desyrel) 50 mg PO QHS [facility] Warfarin Sodium (Jantoven) 3 mg PO WeThFr@1700 [facility] Warfarin Sodium 2 mg/ Warfarin (Sodium 2.5 mg) 4.5 mg PO Tu@1700 [facility] STROKE Vital Signs/Narrative: Vital Signs Temp Pulse Resp BP Pulse Ox 11/30/19 16:02 97.3 F L 58 L 18 110/80 95 11/30/19 15:18 97.6 F L 58 L 16 137/61 H 100 11/30/19 14:49 97.2 F L 60 16 112/51 L 94 Medical Necessity - Tobacco Use Smoking Status: Never smoker Tobacco Use: Non-smoker Assessment/Plan All Active Problems (Last Updated 11/30/19 @ 14:[address] Tank Parker, DPM) Fracture of ankle, bimalleolar, left, closed (Acute) L Ankle Bimalleolar Fracture s/p ORIF POD#0 -mgt per Ortho -pain meds and bowel regimen -NWB L LE -plan for TCU at d/c CAD/HTN/HPL -continue Home meds (asa,lasix,metoprolol, prn nitro,crestor) Mechanical AV -coumadin to be restarted tonight -no bridge per cardiology--> see ortho note -goal INR 2-3 PAF -OAC -Flecanide H/O DVT-remote -OAC with coumadin -check daily INR GERD -Continue PPI Hypothyroidism -continue Synthroid Seizure D/O -Keppra -level was ordered on admission and pending Neuropathy -gabapentin Depression -Cymbalta MO -recommend wgt loss DVT prophylaxis -SCD's -start Lovenox 40 daily until INR is therapeutic Inpatient E&M: [id number] Subs Hosp L2
[2019-11-30] MEDS: oxyCODONE 5 MG Tablet PO (18:42)
[2019-11-30] MEDS: Docusate Sodium 100 MG Capsule PO (18:42)
[2019-11-30] MEDS: Acetaminophen 325 MG Tablet 650 MG PO (18:42)
[2019-11-30] MEDS: Cefazolin 2 GM in 0.9% Normal Saline 100 ML IV (19:46)
[2019-11-30] MEDS: Flecainide 100 MG Tablet PO (21:37)
[2019-11-30] MEDS: levETIRAcetam 500 MG Tablet PO (21:39)
[2019-11-30] MEDS: traZODone 50 MG Tablet PO (21:39)
[2019-11-30] MEDS: Atorvastatin Calcium 40 MG Tablet PO (21:39)
[2019-11-30] MEDS: Gabapentin 300 MG Capsule PO (21:39)
[2019-11-30] MEDS: Nortriptyline 25 MG Capsule 75 MG PO (21:39)
--- NOTE | 2019-11-30 21:50 | NURSING ---
pt refusing lovenox. provided education
[2019-11-30] MEDS: 0.9% Saline Lock 10 ML Syringe IV (21:51)
[2019-11-30] MEDS: HYDROmorphone 1 MG/ML Syringe IV (21:51)
[2019-12-01] VITALS (10 sets, daily range): BP systolic 101–115; BP diastolic 42–56; PULSE 63–99; RESP 18–20; TEMP 36.7–37.3; O2SAT 88–98
[2019-12-01] MEDS: Cefazolin 2 GM in 0.9% Normal Saline 100 ML IV (03:32)
[2019-12-01] MEDS: Acetaminophen 325 MG Tablet 650 MG PO ×2 (04:08→11:22)
[2019-12-01] MEDS: Levothyroxine 100 MCG Tablet PO (05:22)
[2019-12-01 06:09] LABS: Anion Gap 8 (5-15); BUN 30 mg/dL (7-18); Calcium,Total 9.1 mg/dL (8.5-10.1); Chloride 105 mmol/L (98-107); Creatinine, Serum 1.76 mg/dL (0.55-1.02); EST Glomerular Filtration Rate 30 mL/min (>60); Est Glom Filt Rate - Afr Amer 36 mL/min (>60); Estimated Creatinine Clearance 23.48 ml/min; Glucose 105 mg/dL (74-106); Potassium 4.5 mmol/L (3.5-5.1); Sodium Level 136 mmol/L (136-145)
--- NOTE | 2019-12-01 07:19 | PN_ITS ---
Reason for Visit: Follow-up on left ankle bimalleolar fracture repair Subjective: Patient was seen and examined. Denied any new complaint. Her pain is fairly controlled. No acute events overnight. Objective: Physical exam: General: Alert, Oriented x3, Cooperative, No apparent distress, Well developed, Well nourished, HEENT: Atraumatic, PERRLA, EOMI, Normocephalic, EAC Clear Oral: Moist Mucosa, No Gingival or Mucosal Lesions/ Ulcerations Neck: Supple, Negative Carotid Bruits, Trachea Midline, Thyroid Normal Size and Texture Lungs: Clear to auscultation, Normal air movement, No rhonchi, No wheeze, No rales Cardiovascular: Regular rate, Regular Rhythm, Normal S1, Normal S2, No murmurs, No Ectopic Activity, No rub noted, No Gallop Abdomen: Bowel Sounds Present, Soft, Non Tender, Non-Distended, No Hepato- splenomegaly, Obese, No hernias noted Extremities: See under musculoskeletal, no edema Skin: No rashes, No breakdown Musculoskeletal: Ag wraps to the right lower extremity Lymphatic: No Cervical, Supraclavicular, or Inguinal Adenopathy Neurological: Cranial nerves II-XII grossly intact, Deep Tendon Reflexes 2+/4 and Symmetrical, Neuro grossly intact, Motor Exam 5/5 strength throughout Psych/Mental Status: Normal Affect, Appropriate, Alert and oriented to time, place, person, mood and affect Vitals/I&O's: Vital Signs Temp Pulse Resp BP Pulse Ox 98.1 F 78 18 115/48 L 92 12/01/19 03:31 12/01/19 03:31 12/01/19 03:31 12/01/19 03:31 12/01/19 06:59 Oxygen Flow Rate (L/min) 1 Oxygen Delivery Method Nasal Cannula Weight: 112.037 kg Body Mass Index (BMI) 42.4 Intake and Output for Last 24 Hours 11/29/19 11/30/19 12/01/19 23:59 23:59 23:59 Intake Total 2041.25 / 2041.25 733.75 / 733.75 Output Total 200 / 200 200 / 200 Balance 1841.25 / 1841.25 533.75 / 533.75 Laboratory Results 11/30/19 08:55: TSH 5.73 H 11/30/19 08:55: Levetiracetam Pending 11/30/19 08:55: PT 19.6 H, INR 1.7 12/01/19 05:30: Sodium 136, Potassium 4.5, Chloride 105, Carbon Dioxide 23.0, Anion Gap 8, BUN 30 H, Creatinine 1.76 H, Estim Creat Clear Calc 23.48, Est GFR (MDRD) Af Amer 36 L, Est GFR (MDRD) Non-Af 30 L, BUN/Creatinine Ratio 17.0, Glucose 105, Calcium 9.1 Current Medications Acetaminophen (Tylenol) 650 mg PO Q4H PRN PRN PRN Reason: Pain 1-10 or Fever Last Admin: 12/01/19 04:08 Dose: 650 mg Documented by: Hydrocodone Bitart/Acetaminophen ([place] 5mg-325mg) 1 - 2 tablet PO Q6H PRN PRN PRN Reason: Pain Score 1-5/10 Allopurinol (Zyloprim) 100 mg PO DAILY@0800 [facility] Aspirin (Ecotrin) 81 mg PO DAILY@0800 [facility] Atorvastatin Calcium (Lipitor) 40 mg PO QHS [facility] Last Admin: 11/30/19 21:39 Dose: 40 mg Documented by: Cholecalciferol (Vitamin D (25mcg)) 5,000 unit PO DAILY [facility] Docusate Sodium (Colace) 100 mg PO BID PRN PRN PRN Reason: CONSTIPATION Last Admin: 11/30/19 18:42 Dose: 100 mg Documented by: Duloxetine HCl (Cymbalta) 60 mg PO DAILY [facility] Enoxaparin Sodium (Lovenox) 30 mg SC DAILY [facility] Flecainide Acetate (Tambocor) 100 mg PO BID [facility] Last Admin: 11/30/19 21:37 Dose: 100 mg Documented by: Furosemide (Lasix) 40 mg PO DAILY [facility] Gabapentin (Neurontin) 300 mg PO QHS [facility] Last Admin: 11/30/19 21:39 Dose: 300 mg Documented by: Hydromorphone HCl (Dilaudid Inj) 1 mg IV Q2H PRN PRN PRN Reason: Pain Score 6-10/10 Last Admin: 11/30/19 21:51 Dose: 1 mg Documented by: Lactated Ringer's () 1,000 mls @ 75 mls/hr IV .[id number] [facility] Last Infusion: 12/01/19 04:16 Dose: 75 mls/hr Documented by: Cefazolin Sodium 2 gm/ Sodium (Chloride) 110 mls @ 150 mls/hr IV Q8H [facility] Last Infusion: 12/01/19 04:16 Dose: Infused Documented by: Sodium Chloride () 250 mls @ 15 mls/hr IV .[id number] PRN PRN Reason: Saline Flush Sodium Chloride () 250 mls @ 15 mls/hr IV .[id number] PRN PRN Reason: Additional IVPB Infusion Influenza Virus Vaccine Quadrival (Flucelvax /Fluzone ) 0.5 ml IM .ONCE ONE Stop: 12/01/19 10:01 Levetiracetam (Keppra Tablet) 500 mg PO BID [facility] Last Admin: 11/30/19 21:39 Dose: 500 mg Documented by: Levothyroxine Sodium (Synthroid) 100 mcg PO DAILY@0600 [facility] Last Admin: 12/01/19 05:22 Dose: 100 mcg Documented by: Magnesium Chloride (Mag64) 128 mg PO DAILY [facility] Metoprolol Succinate (Toprol Xl (Beta Mani)) 25 mg PO DAILY [facility] Nitroglycerin (Nitrostat) 0.4 mg SUBLINGUAL Q5M PRN PRN Reason: CARDIAC/CHEST PAIN Nortriptyline HCl (Pamelor) 75 mg PO QHS [facility] Last Admin: 11/30/19 21:39 Dose: 75 mg Documented by: Ondansetron HCl (Zofran) 8 mg PO Q8H PRN PRN PRN Reason: NAUSEA/VOMITING Oxycodone HCl (Oxyir) 5 mg PO Q6H PRN PRN PRN Reason: Pain Score 6-10/10 Last Admin: 11/30/19 18:42 Dose: 5 mg Documented by: Pantoprazole Sodium (Protonix) 40 mg PO DAILY [facility] Potassium Chloride (K-Dur) 10 meq PO DAILY@0800 [facility] Promethazine HCl (Phenergan) 25 mg IM Q8H PRN PRN PRN Reason: Nausea/vomiting Sodium Chloride () 10 - 40 ml IV UD PRN PRN Reason: SALINE FLUSH Last Admin: 11/30/19 21:51 Dose: 10 ml Documented by: Trazodone HCl (Desyrel) 50 mg PO QHS [facility] Last Admin: 11/30/19 21:39 Dose: 50 mg Documented by: Warfarin Sodium (Jantoven) 3 mg PO SuMoWeThFrSa@1700 [facility] Warfarin Sodium 2 mg/ Warfarin (Sodium 2.5 mg) 4.5 mg PO Tu@1700 [facility] STROKE Vital Signs/Narrative: Vital Signs Temp Pulse Resp BP Pulse Ox 12/01/19 06:59 92 12/01/19 06:55 88 12/01/19 05:24 94 12/01/19 03:31 98.1 F 78 18 115/48 L 96 Medical Necessity - Tobacco Use Smoking Status: Never smoker Tobacco Use: Non-smoker Assessment/Plan All Active Problems (Last Updated 11/30/19 @ 14:[address] Tank Parker, DPM) Fracture of ankle, bimalleolar, left, closed (Acute) 1. POD #1 status post ORIF for left ankle bimalleolar fracture, pain is controlled, Continue per orthopedic management 2. Hypertension, controlled, continue on metoprolol 3. CAD, stable, continue on aspirin, statin 4. Hypothyroidism, on levothyroxine 5. Mechanical aortic valve/asthma atrial fibrillation/history of DVT INR is 1.7, continue on coumadin 6. Seizure disorder, on Keppra 7. DVT PPx- on warfarin Inpatient E&M: [id number] Subs Hosp L2
[2019-12-01] MEDS: Aspirin E.C. 81 MG Tablet PO (08:25)
[2019-12-01] MEDS: Allopurinol 100 MG Tablet PO (08:26)
[2019-12-01] MEDS: Magnesium Chloride 64 MG Delay Rel.Tablet 128 MG PO (10:44)
[2019-12-01] MEDS: 0.9% Saline Lock 10 ML Syringe IV ×2 (10:44→12:41)
[2019-12-01] MEDS: DULoxetine Hcl 60 MG Capsule PO (10:44)
[2019-12-01] MEDS: Flecainide 100 MG Tablet PO (10:45)
[2019-12-01] MEDS: Furosemide 40 MG Tablet PO (10:45)
[2019-12-01] MEDS: Pantoprazole Sodium 40 MG Tablet PO (10:45)
[2019-12-01] MEDS: levETIRAcetam 500 MG Tablet PO (10:45)
[2019-12-01] MEDS: Enoxaparin 30 MG/0.3 ML Syringe SC (11:14)
--- NOTE | 2019-12-01 12:00 | CASEMGMT ---
Social Work Note RUBY placed a call to Desire with [facility] and provided referral. Desire states [facility] is able to accept pt. SW updated Desire that pt will be discharged to [facility] today. Desire states understanding, states that in regards to pt's follow up appointment either pt's family will need to transport pt or pt will need to pay privately for wheelchair van transport. SW updated that [facility] needs pt before 1400 today. SW in to speak with pt. SW updated pt on acceptance to [facility] and updated pt on transportation to follow up appointments. Pt states understanding, gave this worker permission to update her daughter Fátima. SW placed a call to pt's daughter Fátima and updated her on acceptance to [facility] and discharge to [facility] today. SW also updated Fátima on transportation to follow up appointments. SW updated Fátima that pt will be transferred to [facility] before 1400 today. Fátima states understanding. Plan: [facility] today Dara Auguste PRESIDENT + PUBLISHER, CHIEF KNOWLEDGE OFFICER
--- NOTE | 2019-12-01 12:06 | DS.PCM_ITS ---
Discharge Date and Diagnosis - Problem List Patient Problems: Active and Suspected Problems (Last Updated 11/30/19 @ 14:[address] Tank Parker DPM) Fracture of ankle, bimalleolar, left, closed (Acute) Date of Admission: 11/30/19 Date of Discharge: 12/01/19 - Primary Discharge Diagnosis Acute Problems: Active Problems (Last Updated 11/30/19 @ 14:[address] Tank Parker DPM) Fracture of ankle, bimalleolar, left, closed (Acute) - Secondary Discharge Diagnosis Chronic Problems: Chronic Problems (Last Updated 11/30/19 @ 14:[address] Tank Parker DPM) History of cystitis (Chronic) Esophageal reflux (Chronic) History of heart valve replacement (Chronic) History of venous thrombosis and embolism (Chronic) Hyperlipidemia (Chronic) HTN (hypertension) (Chronic) Hypothyroidism (Chronic) Spinal stenosis (Chronic) Hospital Course and Treatment Imaging Results: STUDY: X-RAY - LEFT ANKLE REASON FOR EXAM: Female, 74 years old. post op ORIF left ankle fracture TECHNIQUE: 3 view(s) of the ankle. COMPARISON: Prior intraoperative left ankle radiographs of 11/30/2019 FINDINGS: Anatomic reduction and fixation of the distal fibular fracture with a lateral side contour compression plate and one independent lag screw. Anatomic realignment and fixation of the fracture through the medial malleolus with 2 partially threaded malleolar screws. Normal tibiotalar articulation and ankle mortise. Normal visualized talus and calcaneus. The visualized subtalar, talonavicular, calcaneocuboid and tarsal articulations are normal. The extremity is stabilized in a posterior plaster splint with the ankle in a neutral position. RAD/Ankle min 3 Views IMPRESSION: Anatomic realignment and stabilization of the distal fibula and medial malleolar fractures with hardware as described above. No untoward bone, joint or hardware findings. Electronically Signed: Mayte Whiteside MD at 15:49 EDT , Service support , Hospitalist Dr. Jolanta Mueller for medical management Consultation to social work for post hospital placement Operations: - - Left ankle bimalleolar fracture open reduction with internal fixation Summary of Care Provided: The patient is a 74 year old F with a past medical history consistent of coronary artery disease, congestive heart failure, thyroid disease, arthritis, aortic aneurysm, who suffered an injury to her left ankle on October 27, 2019. Patient states she was getting out of her car, and had her left foot and ankle caught underneath the cyst to see. Patient unfortunately lost her balance, and felt immediate pain in her left ankle. Patient was sent to the emergency department, where she was diagnosed with a bimalleolar ankle fracture. When patient initially saw me in the office, she elected for conservative therapy. After speaking with her family, she then elected for surgical intervention. Medical clearance was obtained from her primary care physician, publication specialist, and neurologist, who all ultimately cleared her for surgical intervention. Her last dose of warfarin was on November 25. Surgical intervention was performed on 11/30/2019 for left ankle open reduction with internal fixation of bimalleolar fracture. Patient was admitted after the surgery for postoperative pain control and antibiotics. Patient does live at home alone, and is unable to perform activities while remaining nonweightbearing to the left lower extremity. I believe that for her health and safety that she would benefit from placement in an assistive facility. She has been accepted for transfer to the Transitional Care Unit at [facility]. After discussion with the patient, he notes continued control pain of her left lower extremity. She said there was p ain overnight last night, that was eventually controlled by medications. Today, she is only needed Tylenol for the pain. Physical therapy has worked with her for nonweightbearing to the left lower extremity. The hospitalist was consulted for assistance in medical management. They have given her doses of Lovenox, to assist in the transition after her being off her warfarin. She has continued h er warfarin as instructed at this time. Overall, patient admits to much improvement since postsurgical intervention. She denies any acute complaints at this time, I feel that she is ready to be transferred. This will be performed today, December 01, 2019. [] Patient Problems: Active and Suspected Problems (Last Updated 11/30/19 @ 14:[address] Tank Parker, SARAH) Fracture of ankle, bimalleolar, left, closed (Acute) Subjective: Patient was seen at bedside resting comfortably. Patient admits to improved pain since last night. States that there was difficulty controlling her pain overnight, but today she is only needed Tylenol for the pain. She has had physical therapy work with her on her nonweightbearing. Overall, she admits to improvement in symptoms when compared to immediately postoperatively. He denies any acute complaints at this time, states that she feels that she is ready for transfer. Currently, patient denies fever, chills, nausea, vomiting, shortness of breath, chest pain. Patient does admit to left ankle pain, approximately 5 out of 10, well controlled by Tylenol at this time. Patient denies left calf pa in. Objective: Extremity physical exam: Dressing is clean, dry, intact the left lower extremity. No evidence of dishevelment or removal noted. No evidence of strikethrough noted. Foot and ankle appear in a rectus position to the tibia at this time. Capillary fill time is less than 3 seconds to all digits of the left foot. Gross and protective sensation is intact to the digits of the left foot. No tenderness upon palpation and compression of the left posterior calf. Patient is able to move toes in a free manner with no pain. - Physical Exam Vitals/I&O's: Vital Signs Temp Pulse Resp BP Pulse Ox 98.0 F 63 18 115/42 L 95 12/01/19 10:51 12/01/19 10:51 12/01/19 10:51 12/01/19 10:51 12/01/19 10:51 Oxygen Flow Rate (L/min) 1 Oxygen Delivery Method Nasal Cannula Weight: 112.037 kg Body Mass Index (BMI) 42.4 Intake and Output for Last 24 Hours 11/29/19 11/30/19 12/01/19 23:59 23:59 23:59 Intake Total 2041.25 / 2040.25 733.75 / 733.75 Output Total 200 / 200 200 / 200 Balance 1841.25 / 1841.25 533.75 / 533.75 General: Alert, Oriented x3, Cooperative, No apparent distress HEENT: Atraumatic, PERRLA Oral: Moist Mucosa Neck: Supple, No JVD Lungs: Clear to auscultation, Normal air movement, No rhonchi, No wheeze Cardiovascular: Regular rate, Regular Rhythm, Normal S1, Normal S2 Abdomen: Bowel Sounds Present, Soft, Non Tender, Non-Distended, Obese Extremities: Capillary Refill Less than 3 Seconds, No Calf Tenderness Musculoskeletal: - - Minimal tenderness upon palpation and compression of the left ankle. No other areas of tenderness noted. Neurological: Sensory exam intact to light touch and pain Psych/Mental Status: Alert and oriented to time, place, person, mood and affect Laboratory Results 12/01/19 05:30: Sodium 136, Potassium 4.5, Chloride 105, Carbon Dioxide 23.0, Anion Gap 8, BUN 30 H, Creatinine 1.76 H, Estim Creat Clear Calc 23.48, Est GFR (MDRD) Af Amer 36 L, Est GFR (MDRD) Non-Af 30 L, BUN/Creatinine Ratio 17.0, Glucose 105, Calcium 9.1 Current Medications Acetaminophen (Tylenol) 650 mg PO Q4H PRN PRN PRN Reason: Pain 1-10 or Fever Last Admin: 12/01/19 11:22 Dose: 650 mg Documented by: Hydrocodone Bitart/Acetaminophen ([place] 5mg-325mg) 1 - 2 tablet PO Q6H PRN PRN PRN Reason: Pain Score 1-5/10 Allopurinol (Zyloprim) 100 mg PO DAILY@0800 [facility] Last Admin: 12/01/19 08:26 Dose: 100 mg Documented by: Aspirin (Ecotrin) 81 mg PO DAILY@0800 [facility] Last Admin: 12/01/19 08:25 Dose: 81 mg Documented by: Atorvastatin Calcium (Lipitor) 40 mg PO QHS [facility] Last Admin: 11/30/19 21:39 Dose: 40 mg Documented by: Cholecalciferol (Vitamin D (25mcg)) 5,000 unit PO DAILY [facility] Last Admin: 12/01/19 10:44 Dose: 5,000 unit Documented by: Docusate Sodium (Colace) 100 mg PO BID PRN PRN PRN Reason: CONSTIPATION Last Admin: 11/30/19 18:42 Dose: 100 mg Documented by: Duloxetine HCl (Cymbalta) 60 mg PO DAILY [facility] Last Admin: 12/01/19 10:44 Dose: 60 mg Documented by: Enoxaparin Sodium (Lovenox) 30 mg SC DAILY [facility] Last Admin: 12/01/19 11:14 Dose: 30 mg Documented by: Flecainide Acetate (Tambocor) 100 mg PO BID [facility] Last Admin: 12/01/19 10:45 Dose: 100 mg Documented by: Furosemide (Lasix) 40 mg PO DAILY [facility] Last Admin: 12/01/19 10:45 Dose: 40 mg Documented by: Gabapentin (Neurontin) 300 mg PO QHS [facility] Last Admin: 11/30/19 21:39 Dose: 300 mg Documented by: Hydromorphone HCl (Dilaudid Inj) 1 mg IV Q2H PRN PRN PRN Reason: Pain Score 6-10/10 Last Admin: 11/30/19 21:51 Dose: 1 mg Documented by: Lactated Ringer's () 1,000 mls @ 75 mls/hr IV .[id number] [facility] Last Infusion: 12/01/19 04:16 Dose: 75 mls/hr Documented by: Sodium Chloride () 250 mls @ 15 mls/hr IV .[id number] PRN PRN Reason: Saline Flush Sodium Chloride () 250 mls @ 15 mls/hr IV .[id number] PRN PRN Reason: Additional IVPB Infusion Cefazolin Sodium () 1 gm in 50 mls @ 100 mls/hr IV Q12H [facility] Levetiracetam (Keppra Tablet) 500 mg PO BID [facility] Last Admin: 12/01/19 10:45 Dose: 500 mg Documented by: Levothyroxine Sodium (Synthroid) 75 mcg PO DAILY@0600 [facility] Magnesium Chloride (Mag64) 128 mg PO DAILY [facility] Last Admin: 12/01/19 10:44 Dose: 128 mg Documented by: Metoprolol Succinate (Toprol Xl (Beta Mani)) 25 mg PO DAILY [facility] Nitroglycerin (Nitrostat) 0.4 mg SUBLINGUAL Q5M PRN PRN Reason: CARDIAC/CHEST PAIN Nortriptyline HCl (Pamelor) 75 mg PO QHS [facility] Last Admin: 11/30/19 21:39 Dose: 75 mg Documented by: Ondansetron HCl (Zofran) 8 mg PO Q8H PRN PRN PRN Reason: NAUSEA/VOMITING Oxycodone HCl (Oxyir) 5 mg PO Q6H PRN PRN PRN Reason: Pain Score 6-10/10 Last Admin: 11/30/19 18:42 Dose: 5 mg Documented by: Pantoprazole Sodium (Protonix) 40 mg PO DAILY [facility] Last Admin: 12/01/19 10:45 Dose: 40 mg Documented by: Potassium Chloride (K-Dur) 10 meq PO DAILY@0800 [facility] Last Admin: 12/01/19 08:25 Dose: 10 meq Documented by: Promethazine HCl (Phenergan) 25 mg IM Q8H PRN PRN PRN Reason: Nausea/vomiting Sodium Chloride () 10 - 40 ml IV UD PRN PRN Reason: SALINE FLUSH Last Admin: 12/01/19 10:44 Dose: 10 ml Documented by: Trazodone HCl (Desyrel) 50 mg PO QHS [facility] Last Admin: 11/30/19 21:39 Dose: 50 mg Documented by: Warfarin Sodium (Jantoven) 3 mg PO SuMoWeThFrSa@1700 [facility] Warfarin Sodium 2 mg/ Warfarin (Sodium 2.5 mg) 4.5 mg PO Tu@1700 [facility] Discharge Diet: 1800 Calorie Control Diet Discharge Activity: May Not Drive, May Not Shower, Use Walker, Use Crutches Weight Bearing Status: No weight bearing Keep extremity elevated above heart level: Left Leg Additional Activity Instructions:: 1. Keep the dressing to left leg clean, dry, intact. Do not get dressing wet. Do not remove dressing. If get dressing wet, call office for further instruction. 2. Elevate left foot above level of heart as often as possible. 3. Ice around left knee 20 minutes on, 20 minutes off, every hour while you are awake until follow-up appointment. 4. No walking or standing on left foot. No placing weight on left foot. Use crutches/walker/wheelchair for assistance. 5. Begin taking doxycycline (antibiotic) twice a day upon transfer. 6. Begin taking pain medication as needed upon transfer. 7. Continue taking Coumadin as directed by your publication specialist. 8. Patient is to follow-up with me in the [place] office in 1 week for further postoperative care. Call your doctor if your incision/area has: Continuous Slow Oozing, Sudden Increased Bleeding, Increased Pain/ Swelling Call your doctor if you observe: Fever of 101 or Higher, Coldness, Increased Pain, Inability to have a bowel movement, Shortness of breath, Chest pain, Increased palpitations (irregular heartbeat), Calf discomfort Cleanse incision/area with: Keep Dressing Clean & Dry Home Medications: Medications to take at Discharge allopurinol 100 mg tablet 100 mg PO DAILY #90 tab 02/22/19 duloxetine 60 mg capsule,delayed release 60 mg PO DAILY #90 cap 02/22/19 gabapentin 300 mg capsule 300 mg PO QHS #90 cap 02/22/19 levothyroxine 100 mcg tablet 100 mcg PO DAILY #90 tab 02/22/19 metoprolol succinate 25 mg tablet,extended release 24 hr 25 mg PO DAILY #90 tab 02/22/19 nortriptyline 75 mg capsule 75 mg PO QHS #90 cap 02/22/19 omeprazole 40 mg capsule,delayed release 40 mg PO DAILY #90 cap 02/22/19 rosuvastatin 20 mg tablet 20 mg PO QHS #90 tab 02/22/19 trazodone 50 mg tablet 50 mg PO QHS #90 tab 02/22/19 warfarin 3 mg tablet 3 mg PO [facility] tab 02/22/19 Aspirin [Adult Aspirin Regimen] 81 mg PO DAILY 11/27/19 Cholecalciferol (Vitamin D3) [Vitamin D3] 5,000 unit PO DAILY 11/27/19 Flecainide [Tambocor] 100 mg PO BID 11/27/19 Furosemide [Lasix] 40 mg PO DAILY 11/27/19 Levetiracetam [Keppra] 500 mg PO BID 11/27/19 Magnesium Oxide [Magnesium] 400 mg PO DAILY 11/27/19 Nitroglycerin 0.4 mg SL PRN PRN 11/27/19 Potassium Chloride 10 meq PO DAILY 11/27/19 Warfarin [Coumadin] 4.5 mg PO TU 11/27/19 Acetaminophen [Tylenol Tablet] 650 mg PO Q4H PRN PRN tab 12/01/19 Docusate Sodium [Colace] 100 mg PO BID PRN PRN cap 12/01/19 Ondansetron [Zofran] 8 mg PO Q8H PRN PRN tab 12/01/19 Warfarin [Coumadin] 4.5 mg PO Tu@1700 tab 12/01/19 Primary Care Physician: Kishore Ricci MD [Primary Care Provider] - Please Follow Up With: Tank Parker DPM When: on December 08, 2019 at scheduled appt in [place] Office Disposition: Inpt Rehab Unit/Facility Minutes spent on discharge:: 30 Patient Condition:: Good Medical Necessity - Tobacco Use Smoking Status: Never smoker Tobacco Use: Non-smoker Meaningful Use Info Meaningful Use Diagnoses (Choose all that apply): None applicable Inpatient E&M: 69654 Disch Hosp
--- NOTE | 2019-12-01 15:31 | NURSING ---
report called to rehab
[2019-12-07 06:56] LABS: KEPPRA (LEVETIRACETAM) 43.4 ug/mL (10.0-40.0)
== END 2019-12-01 13:00 | DRG 494 ==
LOC: SDC 14:32 → MS3 14:32
PROVIDERS: Anesthesiology; Admitting Provider Podiatrist Foot & Ankle Surgery; PCP Family Medicine; Referring Provider Podiatrist Foot & Ankle Surgery; Visit Provider Internal Medicine
DX: S82.842A Displaced bimalleolar fracture of left lower leg, initial encounter for closed fracture (principal); E03.9 Hypothyroidism, unspecified; E78.5 Hyperlipidemia, unspecified; E78.01 Familial hypercholesterolemia; I50.9 Heart failure, unspecified; Z23 Encounter for immunization; I11.0 Hypertensive heart disease with heart failure; K21.9 Gastro-esophageal reflux disease without esophagitis; I25.10 Atherosclerotic heart disease of native coronary artery without angina pectoris; M19.90 Unspecified osteoarthritis, unspecified site; F32.9 Major depressive disorder, single episode, unspecified; G62.9 Polyneuropathy, unspecified; G40.909 Epilepsy, unspecified, not intractable, without status epilepticus; I48.0 Paroxysmal atrial fibrillation; J45.909 Unspecified asthma, uncomplicated; W18.43XA Slipping, tripping and stumbling without falling due to stepping from one level to another, initial encounter; Y93.89 Activity, other specified; Y92.9 Unspecified place or not applicable; Z95.2 Presence of prosthetic heart valve; Z86.718 Personal history of other venous thrombosis and embolism
CPT/HCPCS: 36415; 73610; 76000; 80048; 80177; 84443; 85610; 94667; 97162; 97166; 99251; C1713; G0008; J7120; 90686; A4216; G0463; J2405

== ENCOUNTER 2019-12-01 13:30 | Inpatient (IN) | payer MEDICARE, OTHER, SELFPAY ==
[2019-11-30 16:02] VITALS: BMI 42.4
[2019-12-01 14:02] VITALS: BP 132/67; PULSE 66; RESP 18; TEMP 36.8; O2SAT 94; BMI 45.1
--- NOTE | 2019-12-01 15:00 | NURSING ---
Dr. Tank Parker office clarified that patient is to remain on ATB PO until at least 12-22-19 but he will provide further instruct at discharge from Rehab.
--- NOTE | 2019-12-01 15:05 | HP.PCM_ITS ---
Problem List (1) History of aortic valve replacement Status: Chronic (2) Hyperuricemia Status: Chronic (3) History of gout Status: Chronic (4) Morbid obesity Status: Chronic (5) Aspiration pneumonia Status: Suspected (6) Stage 3 chronic kidney disease Status: Chronic (7) Chronic anticoagulation Status: Acute (8) Esophageal reflux Status: Chronic Qualifiers: Esophagitis presence: esophagitis presence not specified Qualified Code(s): K21.9 - Gastro-esophageal reflux disease without esophagitis (9) History of venous thrombosis and embolism Status: Chronic (10) Hyperlipidemia Status: Chronic Qualifiers: Hyperlipidemia type: familial hypercholesterolemia Qualified Code(s): E78.01 - Familial hypercholesterolemia (11) HTN (hypertension) Status: Chronic Qualifiers: Hypertension type: essential hypertension Qualified Code(s): I10 - Essential (primary) hypertension (12) Hypothyroidism Status: Chronic Qualifiers: Hypothyroidism type: acquired Qualified Code(s): E03.9 - Hypothyroidism, unspecified (13) Spinal stenosis Status: Chronic (14) Fracture of ankle, bimalleolar, left, closed Status: Acute Qualifiers: Encounter type: initial encounter Qualified Code(s): S82.842A - Displaced bimalleolar fracture of left lower leg, initial encounter for closed fracture Comment: 11/30/[address] Tank Parker (15) History of open reduction and internal fixation (ORIF) procedure Status: Acute (16) Physical debility Status: Acute (17) Seizure disorder Status: Chronic Comment: diagnosed in 2019 (18) ELIDA (obstructive sleep apnea) Status: Suspected Comment: STOP BANG score is 6 putting her at high risk for sleep apnea (19) CAD (coronary artery disease) Status: Chronic (20) History of thoracic aortic aneurysm repair Status: Chronic History of Present Illness Date of Admission: 12/01/19 Chief Complaint: physical debility due to bimalleolar fracture of the left ankle and subsequent ORIF The patient is a 74 year old F with a past medical history of coronary artery disease, hypertension, hyperlipidemia, hypothyroidism, GERD, morbid obesity, history of aortic valve replacement and thoracic aortic aneurysm repair, hyperuricemia, gout and recently diagnosed seizure disorder who was getting out of her car in the garage and lost consciousness on 11/27/19. When she came around he had been incontinent of urine and her Left foot and ankle were trapped under the seat. She can not completely recall the events surrounding falling out of the car and she tells me that she thinks she had a seizure. Xrays in the ER showed a closed displaced bimalleolar fracture of the Left ankle. She initially decided to treat conservatively however she later decided to have surgical intervention and she underwent ORIF of the left ankle on 11/30/[address] Tank Parker. She was transferred to the inpatient rehab unit at [facility] on 12/01/2019 for greater than 3 hours of therapy daily to restore function at or near her level of function prior to the fracture. She is to be non-weight bearing on the LLE. She lives by herself. Her last bone mineral density study was many years ago. She was cleared by cardiology and neurology to proceed with surgery. Past Medical History Past Medical History (Chronic Problems): Chronic Problems Esophageal reflux (Chronic) History of venous thrombosis and embolism (Chronic) Hyperlipidemia (Chronic) HTN (hypertension) (Chronic) Hypothyroidism (Chronic) Spinal stenosis (Chronic) History of aortic valve replacement (Chronic) Hyperuricemia (Chronic) History of gout (Chronic) Morbid obesity (Chronic) Stage 3 chronic kidney disease (Chronic) Seizure disorder (Chronic) diagnosed in 2019 CAD (coronary artery disease) (Chronic) History of thoracic aortic aneurysm repair (Chronic) Medical History: Medical History (Last Reviewed 12/01/19 @ 23:[address] Haylee Solano DO) Seizure R56.9 Allergies celecoxib [From Celebrex] Allergy (Severe, Verified 11/30/19 09:08) rash, swelling, difficulty breathing Sulfa (Sulfonamide Antibiotics) Allergy (Severe, Verified 11/30/19 09:08) rash, swelling, difficulty breathing Home Medications: Ambulatory Orders Medication Instructions Recorded allopurinol 100 mg tablet 100 mg PO DAILY #90 tab 02/22/19 duloxetine 60 mg capsule,delayed 60 mg PO DAILY #90 cap 02/22/19 release gabapentin 300 mg capsule 300 mg PO QHS #90 cap 02/22/19 levothyroxine 100 mcg tablet 100 mcg PO DAILY #90 tab 02/22/19 metoprolol succinate 25 mg 25 mg PO DAILY #90 tab 02/22/19 tablet,extended release 24 hr nortriptyline 75 mg capsule 75 mg PO QHS #90 cap 02/22/19 omeprazole 40 mg capsule,delayed 40 mg PO DAILY #90 cap 02/22/19 release rosuvastatin 20 mg tablet 20 mg PO QHS #90 tab 02/22/19 trazodone 50 mg tablet 50 mg PO QHS #90 tab 02/22/19 warfarin 3 mg tablet 3 mg PO SUMOWETHFRSA #90 tab 02/22/19 Aspirin [Adult Aspirin Regimen] 81 mg PO DAILY 11/27/19 Cholecalciferol (Vitamin D3) 5,000 unit PO DAILY 11/27/19 [Vitamin D3] Flecainide [Tambocor] 100 mg PO BID 11/27/19 Furosemide [Lasix] 40 mg PO DAILY 11/27/19 Levetiracetam [Keppra] 500 mg PO BID 11/27/19 Magnesium Oxide [Magnesium] 400 mg PO DAILY 11/27/19 Nitroglycerin 0.4 mg SL PRN PRN 11/27/19 Potassium Chloride 10 meq PO DAILY 11/27/19 Acetaminophen [Tylenol Tablet] 650 mg PO Q4H PRN PRN tab 12/01/19 Docusate Sodium [Colace] 100 mg PO BID PRN PRN cap 12/01/19 Ondansetron [Zofran] 8 mg PO Q8H PRN PRN tab 12/01/19 Warfarin [Coumadin] 4.5 mg PO Tu@1700 12/01/19 Surgical History: appendectomy - 1974, cataract - 2017, hysterectomy - 1974, - - Heart valve replacement in 2001, Aortic Aneurysm repair 2001, Cardiac window for tamponade 2001, Loop recorder in chest 2016, ORIF of L ankle bimalleolar fracture on 11/30/19 Psychiatric History: Depression MED SPEC History: No pertinent MED SPEC history Lives: Alone Smoking Status: Never smoker Tobacco Use: Non-smoker Alcohol: Rare Drugs: None - *Family History Paternal History Items: Clotting Disorder, Heart Disease, Hypertension, - - Arthritis Maternal History Items: Cancer, Heart Disease, Hypertension, Stroke, - - Arthritis Review of Systems Constitutional: Reports: Fatigue - sften he often feels tired during the day and wants to nap.. Denies: Chills, Fever, Weight Change HEENT: Reports: Sore Throat, - - she has been told that she snores loudly. Denies: Difficulty Swallowing, Head Aches, Nasal Congestion, Sinus Congestion, Sinus Drainage Cardiovascular: Denies: Chest Pain, Palpitations Respiratory: Reports: Shortness of breath upon exertion, Wheezing - she tells me that she has no hx of asthma or COPD and she has never wheezed before. She feels somewhat SOB now.. Denies: Cough, Hemoptysis, Pleuritic Pain, Shortness of breath at rest, Sputum production Gastrointestinal: Reports: Constipation. Denies: Abdominal Pain, Nausea, Vomiting Genitourinary: Reports: Incontinence - she sometimes has urge incontinence. Denies: Dysuria Gynecological: Denies: Breast symptoms, Vaginal bleeding, Vaginal discharge Musculoskeletal: Reports: Joint Pain - left ankle. Denies: Joint Tenderness Skin: Reports: Wounds. Denies: Jaundice, Rash Neurological: Reports: Seizures. Denies: Balance problems, Blurred vision, Slurred speech, Confusion, Focal weakness, Headaches, Numbness, Tingling Psychiatric: Denies: Anxiety, Depression, Homicidal Ideations, Suicidal Ideations Endocrine: Reports: Hx of Thyroiditis Hematologic/ Lymphatic: Reports: Easy Bruising, Easy Bleeding - she is chronically on warfarin, Hx of blood clot VTE Information - Inpt Only VTE Present on Admission: No VTE Mechan Device Prophylaxis: Knee High ESTUARDO Hose VTE Pharm Prophylaxis ordered?: No Reason prophylaxis not ordered:: Treatment Not Indicated - sheis anticoagulated with Warfarin Patient Problems: Active and Suspected Problems (Last Reviewed 12/01/19 @ 23:[address] Haylee Solano, DO) Aspiration pneumonia (Suspected) Chronic anticoagulation (Acute) History of open reduction and internal fixation (ORIF) procedure (Acute) Physical debility (Acute) ELIDA (obstructive sleep apnea) (Suspected) STOP BANG score is 6 putting her at high risk for sleep apnea - Physical Exam Vitals/I&O's: Vital Signs Temp Pulse Resp BP Pulse Ox 98.2 F 66 18 132/67 H 94 12/01/19 14:02 12/01/19 14:02 12/01/19 14:02 12/01/19 14:02 12/01/19 14:02 Oxygen Delivery Method Room Air Weight: 263 lb Body Mass Index (BMI) 45.1 General: Alert, Oriented x3, Cooperative, No apparent distress, Well developed, Well nourished HEENT: Atraumatic, PERRLA, EOMI, Normocephalic, - - the palpebral conjunctiva is pale Oral: Dry Mucosa Neck: Supple, No JVD, Negative Carotid Bruits, No Nodes Lungs: Diminished, Wheezes, - - she is not tachypneic at rest and she has no conversational dyspnea Cardiovascular: Regular rate, Regular Rhythm, Normal S1, Normal S2, No murmurs, No Ectopic Activity, No rub noted, No Gallop, - - you can hear a click over the left precordium due to the prosthetic aortic valve Abdomen: Bowel Sounds Present, Soft, Non Tender, Non-Distended, Obese Extremities: No clubbing, No cyanosis, Capillary Refill Less than 3 Seconds, Edema, - - she has intact sensation to both feet and both feet and warm Skin: No rashes, No breakdown, Incision - the incision can not be viewed due to the cast on the LLE....will defer to to examine when the dressing is changed, - Musculoskeletal: No Tenderness to Palpation of Joints or Extremities, No Muscle Wasting, Arthritic Changes Neurological: Cranial nerves II-XII grossly intact, Neuro grossly intact Psych/Mental Status: Normal Affect, Appropriate Current Medications Acetaminophen (Tylenol) 650 mg PO Q4H PRN PRN PRN Reason: Pain 1-10 or Fever Allopurinol (Zyloprim) 100 mg PO DAILY@0800 [facility] Aspirin (Ecotrin) 81 mg PO DAILY@0800 [facility] Atorvastatin Calcium (Lipitor) 40 mg PO QHS [facility] Bisacodyl (Dulcolax) 10 mg RECTAL .PRN X 1 PRN PRN Reason: Constipation Cholecalciferol (Vitamin D (25mcg)) 5,000 unit PO DAILY [facility] Docusate Sodium (Colace) 100 mg PO BID PRN PRN PRN Reason: CONSTIPATION Doxycycline Monohydrate (Doxycycline) 100 mg PO BID [facility] Duloxetine HCl (Cymbalta) 60 mg PO DAILY [facility] Flecainide Acetate (Tambocor) 100 mg PO BID [facility] Furosemide (Lasix) 40 mg PO DAILY [facility] Gabapentin (Neurontin) 300 mg PO QHS [facility] Levetiracetam (Keppra Tablet) 500 mg PO BID [facility] Levothyroxine Sodium (Synthroid) 100 mcg PO DAILY@0600 [facility] Magnesium Chloride (Mag64) 128 mg PO DAILY [facility] Magnesium Hydroxide (Milk Of Magnesia) 30 ml PO .PRN X 1 PRN PRN Reason: Constipation Metoprolol Succinate (Toprol Xl (Beta Mani)) 25 mg PO DAILY [facility] Nitroglycerin (Nitrostat) 0.4 mg SUBLINGUAL Q5M PRN PRN Reason: CARDIAC/CHEST PAIN Nortriptyline HCl (Pamelor) 75 mg PO QHS [facility] Ondansetron HCl (Zofran) 8 mg PO Q8H PRN PRN PRN Reason: NAUSEA/VOMITING Pantoprazole Sodium (Protonix) 40 mg PO DAILY [facility] Potassium Chloride (K-Dur) 10 meq PO DAILY@0800 [facility] Trazodone HCl (Desyrel) 50 mg PO QHS [facility] Warfarin Sodium (Jantoven) 3 mg PO SuMoWeThFrSa@1700 [facility] Warfarin Sodium 2.5 mg/ (Warfarin Sodium 2 mg) 4.5 mg PO Tu@1700 [facility] Assessment/Plan All Active Problems (Last Reviewed 12/01/19 @ 23:[address] Haylee Solano, DO) Fracture of ankle, bimalleolar, left, closed (Acute) Chronic anticoagulation (Acute) History of open reduction and internal fixation (ORIF) procedure (Acute) Physical debility (Acute) Impressions 1. physical debility due to closed displaced bimalleolar fracture of the left ankle on 11/27/19 with ORIF on 11/30/19 2. suspected seizure with fall out of her car suspected to the the cause of ankle fracture. 3. Seizure disorder diagnosed within the past 6 months 4. Hypertension 5. Hyperlipidemia 6. Hypothyroidism 7. Coronary artery disease 8. History of aortic valve replacement in 2001 at [facility] 9. Repair of thoracic aortic aneurysm in 2001 at the [facility] 10. GERD 11. Suspected ELIDA-stop bang score is 6 putting her at high risk 12. History of DVT and emboli 13. Hyperuricemia with history of gout 14. Morbid obesity 15. aspiration pneumonia-patient is wheezing and has no history of chronic lung disease. Chest x-ray shows increased markings in the right lung, especially in the right base when compared to a prior chest x-ray a few years ago. 16. History of spinal stenosis 17. Chronic renal failure stage III 18. Encephalopathy-more likely than not secondary to multiple [employer] depressant medications in patient with stage III chronic renal failure and poor clearance PLAN PT for gait stability-she will be nonweightbearing on the left lower extremity and will be wheelchair-bound or hopping on the right foot with the aid of a front wheeled walker OT for ADL's Analgesics as needed Bowel protocol Fall precautions Assess for Anxiety/Depression GI prophylaxis for stress ulceration/PUD DVT prophylaxis not necessary due to the fact that she is chronically on Warfarin[] Follow up with neurology, cardiology, PCP and Dr. Tank Parker following DC from IP Rehab AM lab including CMP, CBC, Mag and Gina, BNP, uric acid Start Augmentin 500 mg BID - dose adjusted for CRF Duonebs Q 4 H and Q 2H Albuterol for breakthrough wheezing Oxygen to maintain the O2 saturation >90% When she has recovered and is at her baseline lung function will get an overnight rending pulse ox she is on 2 TCA's at HS - will DC the Trazodone and continue Pamelor MRSA nasal swab Sputum culture. She has a productive cough but has been swallowing the sputum Recommend a DEXA post DC I suspect she may have significant anemia...she is very pale with poor cap refil in the hands and has pale palpebral conjunctive.......this is likely contributing to the SOB Inpatient E&M: 47515 Init Hosp L3
--- NOTE | 2019-12-01 16:00 | NURSING ---
Pleasant. Verbalized understanding to room orientation. Left leg propped up on pillow with ice pack to the left knee. patient denies any needs.
--- NOTE | 2019-12-01 18:40 | NURSING ---
Neck circumference 41 cm. Patient aware she will have an overnight pulse ox study.
[2019-12-01] MEDS: oxyCODONE 5 MG Tablet PO ×2 (19:08→20:02)
[2019-12-01 19:38] VITALS: BP 140/71; PULSE 66; RESP 18; TEMP 36.8; O2SAT 94
--- NOTE | 2019-12-01 20:05 | NURSING ---
upon doing hs assessment, fine crackles and expiratory wheezing noted. pt denies sob at this time and states that wheezing has been happening lately. Respiratory therapy also hears wheezing and Uma, respiratory therapy called dr nuñez to change PSN orders. will continue to monitor pt for shortness of breath and s/sx of distress.
[2019-12-01] MEDS: Albuterol 2.5 MG/3 ML VIAL.NEB. INHALATION (20:21)
[2019-12-01 20:22] VITALS: PULSE 73; RESP 20
[2019-12-01] MEDS: traZODone 50 MG Tablet PO (20:32)
[2019-12-01] MEDS: Doxycycline 100 MG CAPSULE PO (20:33)
[2019-12-01] MEDS: levETIRAcetam 500 MG Tablet PO (20:33)
[2019-12-01] MEDS: Gabapentin 300 MG Capsule PO (20:33)
[2019-12-01] MEDS: Atorvastatin Calcium 40 MG Tablet PO (20:33)
[2019-12-01] MEDS: Nortriptyline 25 MG Capsule 75 MG PO (20:34)
[2019-12-01] MEDS: Senna/Docusate Sodium 1 Tablet 2 TABLET PO (20:35)
[2019-12-01] MEDS: Flecainide 100 MG Tablet PO (20:35)
--- NOTE | 2019-12-01 21:04 | RAD_ITS ---
STUDY: X-RAY CHEST REASON FOR EXAM: Female, 74 years old. Possible aspiration post surgical, wheezing. TECHNIQUE: Single AP portable view of the chest. COMPARISON: To 1214 FINDINGS: Status post heart valve replacement surgery. 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 The lungs are clear and expanded. There is no demonstrated pleural abnormality. Normal size heart. Normal mediastinum and talha. Normal visualized pulmonary arteries. Normal visualized aortic arch and descending thoracic aorta. Normal visualized thoracic spine. Normal visualized ribs, clavicles, and shoulders. There is no demonstrated abnormality of the visualized soft tissue structures of the upper abdomen. RAD/Chest 1 View (Portable) IMPRESSION: No active disease. Electronically Signed: Umesh Barrera MD at 7:46 EDT Tel , Service support ,
--- NOTE | 2019-12-01 22:00 | NURSING ---
respiratory therapy notified this nurse that overnight pulse ox will be held this until pt begins breathing a little better. this nurse will pass along to day shift for dr. nuñez.
--- NOTE | 2019-12-01 23:32 | REHABEVAL_ITS ---
Admission Information Primary Diagnosis:: debility due to L bimalleolar ankle fracture and ORIF Status Changes from Prescreening?: Medical - suspected aspiration pneumonia with bronchospasm Actual Problem List:: Infection, Falls, Skin Intergrity, Pain, ALteration in Cmfrt, Bladder Incontinence, Mobility Impaired, Self Care Deficit, BP, Hypertension Potential Problem List:: DVT, Bleeding, Infection, UTI, Aspiration, Falls, Skin Integrity, Depression Risk of Complications DVT: ESTUARDO [place], - - She is on warfarin for history of atrial fibrillation Bleeding: Monitor Lab Values, Nursing to Teach Precautions for anti-coagulation therapy., Wound, if applicable, to be assessed every shift., Stroke patients assessed for lethargy or change in status. Infection: Clinical Staff to Monitor for S/S of infection:, S/S of infection include fever, redness, warmth, etc. Urinary Tract Infection: Monitor for frequency, burning, discomfort, or incontinence., Nursing will obtain urine sample for urinalysis and C&S when ordered. Aspiration: Clinical staff will monitor for coughing, drooling, congestion., Speech will evaluate swallowing and dsyphasia., Nursing will monitor patient swallowing during meals. Falls: Patient will be evaluated for Fall Precautions, Patient will be placed on Fall Precautions as indicated per protocol. Skin Breakdown: Nursing will assess skin daily using assessment tool., Nursing will place on Skin Breakdown Precautions as indicated. Pain: Clinical staff will assess patient's pain level per protocol., Medications will be given, if needed, and the pain level reassessed., Other methods: Massage, distraction, decrease stimulus, etc. used PRN. Plan of Care Patient requires physician specializing in physical medicine and rehab oversight to provide close medical supervision of rehab issues including: Pain Management, Sleep Problems, Bowel and Bladder, Medical and co-morbidity Management, DVT prophylaxis, Rehabilitation Leadership, Coordination of treatment team Patient needs Physical Therapy: For a minimum of 1 hour, At least 5 out of 7 days Patient needs Physical Therapy to improve:: Mobility, Mobility, Mobility, Strengthening, Transfers, Stretching, ROM, Endurance, Stairs, Gait, Balance Patient needs Occupational Therapy: For a minimum of 1 hour, At least 5 out of 7 days Patient needs Occupational Therapy to improve ADL's incl.: Eating, Grooming, Bathing, Dressing, Toileting, Toilet transfers, Community Reintegration, Higher functioning activities, Household tasks, Adaptive Equipment, Splinting, Other activities as determined Patient requires speech therapy: For a minimum of 1 hour, At least 5 out of 7 days Patient requires speech therapy for: Swallowing, Cognition, Language Skills, Compensatory Strategies Patient requires 24/ Rehabilitation Nursing for: Pain Issues, Identifying and preventing risk factors, Monitoring and reporting current medical conditions, Assisting with ambulation, transfer, and all ADL's, Teaching patients about disease process and medications, Family teaching, Providing safe environment, Bowel and Bladder Issues, Skin integrity, Medication Management Patient needs Customer Sales Representative/ Case Management for: Discharge Planning, Arranging Home Equipment or Services, Family Interventions Patient needs Dietary and Nutrition Services for: Adequate Nutrition, Nutritional Supplements, Nutritional Education Goals Patient will remain: free from falls, or injury at time of discharge. Patient will perform bed mobility at: MOD I level of assist. Patient will complete transfers from bed to chair at: MOD I level of assist. Patient will ambulate: with MOD I assist, with LRD, - - 10 feet with wheeled walker and nonweightbearing on the left lower extremity Patient will complete upper body dressing at: MOD I level of assist. Patient will complete lower body dressing at: MOD I level of assist. Patient will complete toileting at: MOD I level of assist. Patient will perform bathing at: MOD I level of assist. Patient will complete grooming at: MOD I level of assist. Patient will complete home management skills at: MOD I level of assist. Patient will achieve: at MOD I assist, - - No steps Patient will have pain level of: of 3 or less Patient's skin will: remain intact, free from infection. Patient will receive: adequate nutrition. Discharge Planning Pt Prognosis for Sig. Practical Improv. w/in Reasonable Time: Good Estimated Length of stay (days): 14 Anticipated D/C Destination: Home with Home Health Was Preadmission Assessment Accurate?: Yes
[2019-12-02] MEDS: Acetaminophen 500 MG Tablet 1000 MG PO ×3 (05:18→20:57)
[2019-12-02] MEDS: Levothyroxine 100 MCG Tablet PO (05:18)
[2019-12-02] MEDS: oxyCODONE 5 MG Tablet PO (05:18)
[2019-12-02] MEDS: 0.9% Saline Lock 10 ML Syringe IV ×3 (05:21→20:58)
[2019-12-02 05:56] VITALS: PULSE 74; RESP 18; O2SAT 94
[2019-12-02] MEDS: Ipratropium/Albuterol Sulfate 3 ML AMPUL.NEB INHALATION ×3 (05:58→18:42)
[2019-12-02] MEDS: Budesonide Respules 0.5 MG/2 ML AMPUL.NEB. INHALATION ×2 (05:59→18:42)
[2019-12-02 06:59] LABS: M R Staph aureus DNA By PCR Negative (Negative); Probe Check PASS; Specimen Processing Control PASS
[2019-12-02 07:08] LABS: Absolute Lymphocyte Count 1.09 X10^3/uL (0.83-4.51); Absolute Neutrophil Count 7.9 X10^3/uL (2.0-7.7); Basophil# 0.03 X10^3/uL; Basophil% 0.3 % (0-1); Eosinophil# 0.48 X10^3/uL; Eosinophils% 4.6 % (0-5); Hematocrit 29.5 % (37-47); Hemoglobin 8.9 g/dL (12.0-15.0); Lymphocyte # 1.09 X10^3/ul (4.0); Lymphocyte % 10.4 % (19-41); Mean Corp Hgb Conc 30.2 g/dL (32-36); Mean Corpuscular Hgb 29.2 pg (27.0-32.0); Mean Corpuscular Volume 96.7 fL (81-99); Mean Platelet Vol. 9.8 fl (6.2-12.0); Monocyte# 0.97 X10^3/uL; Monocyte% 9.3 % (0-10); NRBC Flagged by Analyzer 0 % (0-5); Neutrophil # 7.85 X10^3/uL (2.7-7.7); Neutrophil % 74.9 % (47-70); Platelet Count 243 K/mm3 (150-450); RBC Distribution Width CV 14.4 % (11.6-14.6); RBC Distribution Width SD 50.6 fl (35.1-43.9); Red Blood Count 3.05 M/mm3 (4.2-5.4); White Blood Count 10.5 K/mm3 (4.4-11.0)
[2019-12-02 07:29] LABS: International Normalized Ratio 1.4; Prothrombin Time (Protime)PT. 16.5 SECONDS (11.7-14.9)
[2019-12-02 07:36] LABS: ALB/GLOB Ratio 0.7 RATIO (0.9-2.4); AST(SGOT) 15 U/L (15-37); Alanine Aminotransfer ALT/SGPT 10 U/L (13-56); Albumin, Serum 2.6 g/dL (3.2-5.0); Alkaline Phosphatase 82 U/L (45-117); Anion Gap 6 (5-15); BUN 32 mg/dL (7-18); BUN/Creat Ratio 16.4 RATIO (10-20); Calcium,Total 9.5 mg/dL (8.5-10.1); Chloride 107 mmol/L (98-107); Creatinine, Serum 1.95 mg/dL (0.55-1.02); EST Glomerular Filtration Rate 26 mL/min (>60); Est Glom Filt Rate - Afr Amer 32 mL/min (>60); Estimated Creatinine Clearance 21.19 ml/min; Globulin 3.9 g/dL (2.2-4.2); Glucose 103 mg/dL (74-106); Protein, Total 6.5 g/dL (6.4-8.2); Sodium Level 140 mmol/L (136-145); Uric Acid 7.3 mg/dL (2.6-6.0)
[2019-12-02] MEDS: Pantoprazole Sodium 40 MG Tablet PO (07:54)
[2019-12-02] MEDS: Magnesium Chloride 64 MG Delay Rel.Tablet 128 MG PO (07:54)
[2019-12-02] MEDS: Allopurinol 100 MG Tablet PO (07:54)
[2019-12-02] MEDS: Furosemide 40 MG Tablet PO (07:54)
[2019-12-02 07:55] VITALS: PULSE 73
[2019-12-02] MEDS: DULoxetine Hcl 60 MG Capsule PO (07:55)
[2019-12-02] MEDS: Amox/Clavulanate 500 MG Tablet PO ×2 (07:55→16:54)
[2019-12-02] MEDS: Metoprolol(XL)Succ 25 MG Tablet PO (07:55)
[2019-12-02] MEDS: Senna/Docusate Sodium 1 Tablet 2 TABLET PO ×2 (07:55→20:57)
[2019-12-02] MEDS: levETIRAcetam 500 MG Tablet PO ×2 (07:56→20:58)
[2019-12-02] MEDS: Aspirin E.C. 81 MG Tablet PO (07:57)
[2019-12-02 08:10] VITALS: BP 133/52; PULSE 73; RESP 18; TEMP 36.5; O2SAT 93
[2019-12-02 08:11] LABS: BNP,B-Type NATRIURETIC PEPTIDE 253.7 pg/mL (0-100)
[2019-12-02] MEDS: Doxycycline 100 MG CAPSULE PO ×2 (09:48→20:58)
[2019-12-02] MEDS: Flecainide 100 MG Tablet PO ×2 (09:48→20:57)
--- NOTE | 2019-12-02 09:59 | NURSING ---
Patient c/o dysuria, urine foul smelling, incontinent in attends after therapy session that patient was unaware that she had done. Patient reported fullness in bladder/stomach. Bladder scan for 800cc after she voided 100 cc in the bedpan. St cath done and 750cc obtained and urine sent to lab for UA C&S.
[2019-12-02 10:32] LABS: Mucous, Urine 0 SEEN /hpf (<or=2+); Squamous Epithelial Cells - UA 0 SEEN /hpf (5-10); White Blood Cells 0 SEEN /hpf (0-5)
[2019-12-02 10:46] LABS: Color, Urine Yellow (Yellow); Glucose, Dipstick Normal (Normal); Ketone-Dipstick Negative (Negative); Leukocyte Esterase-Dipstick Negative /ul (Negative); Nitrite-Dipstick Positive (Negative); Occult Blood-Urine 10 /ul (Negative); Protein-Dipstick Negative (Negative); Specific Gravity, Urine 1.015 (1.002-1.030); Urine Bilirubin Dipstick Negative (Negative); Urine Clarity Clear (Clear); Urine Urobilinogen Normal (Normal)
[2019-12-02 11:03] LABS: Amorphous Sediment 1+; Bacteria 1+ /hpf (None Seen); Red Blood Cells-Urine 0-5 SEEN /hpf (0-5)
[2019-12-02 15:48] VITALS: PULSE 62; RESP 16
--- NOTE | 2019-12-02 17:50 | NURSING ---
Denies distention, does not feel she needs to void right now. Bladder scan done and 275cc noted. Will monitor. Fluids encouraged.
--- NOTE | 2019-12-02 18:31 | NURSING ---
Refused for nurses to apply ice to left knee per order. Patient reported that her knee and pain was ok. Nonpitting edema noted. LLE elevated on pillow.
[2019-12-02 18:42] VITALS: PULSE 71; RESP 18
--- NOTE | 2019-12-02 18:49 | NURSING ---
Breathing tx given per RT with this nurse in room.
[2019-12-02 19:34] VITALS: BP 135/91; PULSE 62; RESP 18; TEMP 36.4; O2SAT 98
[2019-12-02] MEDS: Atorvastatin Calcium 40 MG Tablet PO (20:58)
[2019-12-02] MEDS: Gabapentin 300 MG Capsule PO (20:58)
[2019-12-02] MEDS: Nortriptyline 25 MG Capsule 75 MG PO (20:58)
[2019-12-02] MEDS: Magnesium Hydroxide 30 ML UDC PO (20:58)
[2019-12-03] VITALS (7 sets, daily range): BP systolic 100–111; BP diastolic 44–53; PULSE 60–75; RESP 16–20; TEMP 36.5–36.6; O2SAT 96–98
--- NOTE | 2019-12-03 00:05 | NURSING ---
PT'S ALARMS GOING OFF. PT FOUND SITTING ON EDGE OF BED. INSTRUCTED TO NOTIFY STAFF NEXT TIME SHE WANTS TO SIT ON SIDE OF BED. PT VERBALIZES UNDERSTANDING. PT INCONTINENT OF MOD AMT URINE. BLADDER SCANNED FOR 553 ML. STRAIGHT CATHED WITHOUT DIFFICULTY FOR 600 ML OF CLEAR YELLOW URINE WITHOUT ODOR. PT TOLERATES PROCEDURE WELL. PT HAS HAD NO URGE TO VOID THIS SHIFT.
[2019-12-03] MEDS: Acetaminophen 500 MG Tablet 1000 MG PO ×3 (05:58→21:00)
[2019-12-03] MEDS: Levothyroxine 100 MCG Tablet PO (05:59)
[2019-12-03 06:14] LABS: International Normalized Ratio 1.4; Prothrombin Time (Protime)PT. 16.5 SECONDS (11.7-14.9)
[2019-12-03] MEDS: Budesonide Respules 0.5 MG/2 ML AMPUL.NEB. INHALATION ×2 (07:10→20:10)
[2019-12-03] MEDS: Ipratropium/Albuterol Sulfate 3 ML AMPUL.NEB INHALATION ×3 (07:10→20:10)
[2019-12-03] MEDS: Pantoprazole Sodium 40 MG Tablet PO (08:42)
[2019-12-03] MEDS: Furosemide 40 MG Tablet PO (08:43)
[2019-12-03] MEDS: DULoxetine Hcl 60 MG Capsule PO (08:43)
[2019-12-03] MEDS: Amox/Clavulanate 500 MG Tablet PO ×2 (08:43→17:02)
[2019-12-03] MEDS: Metoprolol(XL)Succ 25 MG Tablet PO (08:43)
[2019-12-03] MEDS: Allopurinol 100 MG Tablet PO (08:43)
[2019-12-03] MEDS: Aspirin E.C. 81 MG Tablet PO (08:43)
[2019-12-03] MEDS: Senna/Docusate Sodium 1 Tablet 2 TABLET PO ×2 (08:43→21:01)
[2019-12-03] MEDS: levETIRAcetam 500 MG Tablet PO ×2 (08:43→21:01)
[2019-12-03] MEDS: Magnesium Chloride 64 MG Delay Rel.Tablet 128 MG PO (08:43)
[2019-12-03] MEDS: oxyCODONE 5 MG Tablet PO (08:44)
[2019-12-03] MEDS: Bisacodyl 10 MG Suppository RECTAL (08:45)
[2019-12-03] MEDS: Flecainide 100 MG Tablet PO ×2 (08:46→21:01)
[2019-12-03] MEDS: Doxycycline 100 MG CAPSULE PO ×2 (10:38→21:02)
[2019-12-03] MEDS: Docusate Sodium 100 MG Capsule PO (17:40)
[2019-12-03] MEDS: Nortriptyline 25 MG Capsule 75 MG PO (21:01)
[2019-12-03] MEDS: Gabapentin 300 MG Capsule PO (21:01)
[2019-12-03] MEDS: Atorvastatin Calcium 40 MG Tablet PO (21:01)
--- NOTE | 2019-12-03 23:35 | NURSING ---
PT FOUND TRYING TO GET OUT OF BED. PT STATES SHE IS AWARE THAT SHE WAS IN HOSPITAL. PT DID NOT REMEMBER TO USE CALL LIGHT INSTRUCTED MULTIPLE TIMES THIS SHIFT. CALL LIGHT USE REINFORCED.
--- NOTE | 2019-12-03 23:45 | NURSING ---
#18 FR BERRY INSERTED FOR RETENTION WITHOUT DIFFICULTY. PT TOLERATES PROCEDURE WELL.
[2019-12-04] VITALS (10 sets, daily range): BP systolic 104–123; BP diastolic 56–60; PULSE 62–79; RESP 16–19; TEMP 36.5–37.2; O2SAT 93–97
[2019-12-04] MEDS: oxyCODONE 5 MG Tablet PO ×2 (00:57→08:39)
[2019-12-04 05:37] LABS: Hematocrit 25.9 % (37-47); Hemoglobin 7.9 g/dL (12.0-15.0); Mean Corp Hgb Conc 30.5 g/dL (32-36); Mean Corpuscular Hgb 29.4 pg (27.0-32.0); Mean Corpuscular Volume 96.3 fL (81-99); Mean Platelet Vol. 8.7 fl (6.2-12.0); Platelet Count 258 K/mm3 (150-450); RBC Distribution Width CV 14.3 % (11.6-14.6); RBC Distribution Width SD 50.4 fl (35.1-43.9); Red Blood Count 2.69 M/mm3 (4.2-5.4); White Blood Count 6.6 K/mm3 (4.4-11.0)
[2019-12-04 05:53] LABS: International Normalized Ratio 1.5
[2019-12-04 05:55] LABS: Anion Gap 6 (5-15); BUN 42 mg/dL (7-18); BUN/Creat Ratio 23.7 RATIO (10-20); Calcium,Total 9.8 mg/dL (8.5-10.1); Chloride 105 mmol/L (98-107); Creatinine, Serum 1.77 mg/dL (0.55-1.02); EST Glomerular Filtration Rate 30 mL/min (>60); Est Glom Filt Rate - Afr Amer 36 mL/min (>60); Estimated Creatinine Clearance 23.35 ml/min; Glucose 86 mg/dL (74-106); Sodium Level 140 mmol/L (136-145)
[2019-12-04] MEDS: Levothyroxine 100 MCG Tablet PO (06:37)
[2019-12-04] MEDS: Acetaminophen 500 MG Tablet 1000 MG PO ×3 (06:37→22:36)
[2019-12-04] MEDS: Budesonide Respules 0.5 MG/2 ML AMPUL.NEB. INHALATION ×2 (06:40→18:27)
[2019-12-04] MEDS: Ipratropium/Albuterol Sulfate 3 ML AMPUL.NEB INHALATION ×4 (06:40→18:27)
[2019-12-04] MEDS: Amox/Clavulanate 500 MG Tablet PO ×2 (08:31→18:06)
[2019-12-04] MEDS: Aspirin E.C. 81 MG Tablet PO (08:31)
[2019-12-04] MEDS: Doxycycline 100 MG CAPSULE PO ×2 (08:32→22:32)
[2019-12-04] MEDS: DULoxetine Hcl 60 MG Capsule PO (08:32)
[2019-12-04] MEDS: Allopurinol 100 MG Tablet PO (08:32)
[2019-12-04] MEDS: levETIRAcetam 500 MG Tablet PO ×2 (08:33→22:33)
[2019-12-04] MEDS: Pantoprazole Sodium 40 MG Tablet PO (08:33)
[2019-12-04] MEDS: Magnesium Chloride 64 MG Delay Rel.Tablet 128 MG PO (08:33)
[2019-12-04] MEDS: Furosemide 40 MG Tablet PO (08:33)
[2019-12-04] MEDS: Metoprolol(XL)Succ 25 MG Tablet PO (08:34)
[2019-12-04] MEDS: Flecainide 100 MG Tablet PO ×2 (08:34→22:33)
[2019-12-04] MEDS: Senna/Docusate Sodium 1 Tablet 2 TABLET PO ×2 (08:36→22:32)
--- NOTE | 2019-12-04 12:02 | PCM.PN.BLA ---
Progress Note Day #3 Augmentin for suspected right side aspiration pneumonia Afebrile since admission VSS Maintaining appropriate oxygen saturation on RA at rest. Room air was 93% seated today. Oral intake is fair Discussed with nursing - no problems that need addressed Reviewed the PT/OT notes Medication list reviewed. She is still sleeping well with the discontinuation of Trazodone at HS......she remains on nortriptyline. SOB is improving. Continues to cough.....she was able to produce a small amount of sputum and there is 3+ WBC's Sputum culture is pending. She has been using the IS and getting Aerosols. She denies CP and has had no hemoptysis. Denies ST or nasal congestion. No calf pain. She tells me that she has trouble swallowing at home and she coughs and chokes at times while eating. All lab was personally reviewed. Hemoglobin today is 7.9 with an MCV of 96.3. INR subtherapeutic at 1.5. Sodium is 140 and the potassium is 4.0. Serum bicarb is 29. The BUN is 42 and the creatinine is 1.77, down from 1.9519 192 following insertion of Ellison catheter. White blood cell count has decreased from 10.5-6.6 with institution of Augmentin 500 twice daily. Alert, oriented x3, no apparent distress, sitting in the wheelchair. She looks less fatigued and more alert than last Wednesday. She no longer looks like she is ill. Mucous membranes are a little dry Trachea is midline, no cervical nodes Lungs-much better air exchange today but is still having mild end expiratory wheezing posteriorly. No Rales, no rhonchi. She is not tachypneic at rest and has no conversational dyspnea or accessory muscle use. Heart-regular rate and rhythm Less swelling in the left foot today. She has intact sensation to the left foot. There is no cyanosis. She fell getting out of the recliner.......she did not call for the nurse. she has been told that she is not to attempt to get up without assistance. She was not injured......she just slid out of the chair onto the floor. Impressions 1. Debility secondary to recent bimalleolar left ankle fracture with ORIF 2. Pneumonia-suspected aspiration pneumonia. Sputum Gram stain with 3+ white blood cells. Sputum culture pending. Plan 7 days of Augmentin. Dose has been adjusted for renal failure. 3. Urine retention requiring Ellison insertion. This may be the etiology of the elevated creatinine. She denies being constipated. She had a BM on 11/28 and had another BM today. Urine culture had no growth. Will check a KUB to look for evidence of large fecal burden. She is getting Oxycodone and also Pamelor and both these medications cause urine retention. 4. Add Miralax to current drug regimen 5. Acute blood loss anemia 6. Chronic renal failure stage III/IV - etiology? obstruction? 7. 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 Subtherapeutic INR 9. Hypercalcemia - calcium corrected for hypoalbuminemia is 10.9 and the highest normal is 10.1. She is on 5000 units of vitamin D daily. Start to wean the Pamelor. Limit narcotics as much as possible. Trazodone was discontinued at admission to the Rehab unit......she has been taking 2 different TCA's Trazodone and Pamelor. TCA's can cause ataxia, dizziness, urine retention, drowsiness, confusion, orthostatic hypotension. She is also now on Keppra which also makes you sleepy Continue Augmentin for a 7-day course Continue aerosolized bronchodilators Add PEP to the IS ST consult for cognition and swallowing Kidney and bladder US Why does she fall so much at home? I suspect she is overmedicated and also that she has ELIDA and is chronically sleep deprived Check orthostatics Hemoccult stool Touch base with her neurologist....Pt can not recall the name...may need to call family Plug all her meds into the drug interaction program on UP to DATE STROKE Vital Signs/Narrative: Vital Signs Pulse Resp 12/04/19 11:18 18 12/04/19 08:34 62 Inpatient E&M: 26471 Subs Hosp L3
--- NOTE | 2019-12-04 13:30 | NURSING ---
VS [id number]%RA-112/51. Patient had call light on to alert staff that she fell. Patient found sitting on buttocks in front of recliner. Dr. Solano with staff for assessment. Patient alert and oriented but forgetful per normal. Patient reported she was getting up to go to the restroom. 1:1 provided gem stone cutter light use and using staff for assistance and patient verbalized understanding. Denies pain. Patient denied hitting head. Full ROM, perrla. No head bumps felt. Senthil lift used x 3 assist to get patient to the bed. Daughter called and aware of incident. livestock farm workers aware of incident. Dr. Solano present. solar panel installation supervisor aware per protocol. New order for ST to eval cognition and they were notified.
--- NOTE | 2019-12-04 13:38 | CASEMGMT ---
Social Work Spoke with patient's daughter, answered questions. Dtr concerned about pt returning home alone if she cannot return at PLOF. Dtr is unable to continue to stay with the pt at home to assist. Explained Medicaid and private duty aides. Pt makes $3100/mo so does not qualify for Medicaid; however, dtr stated pt does not have extra money to hire aides. Pt was active with [facility] PT/OT/SN/SW. Explained Medicare coverage and will give an estimated LOS. Dtr inquired about options if pt is ready to DC home at that time. Explained Medicare coverage in a SNF. SW to assist with DC plans. Explained Team day . Dtr would like conference call this but requesting to change day to Wednesday to accommodate schedule. SW agreed. Notified IDT. Will continue to follow. SONIA Cross
--- NOTE | 2019-12-04 14:11 | US_ITS ---
STUDY: RENAL ULTRASOUND - COMPLETE REASON FOR EXAM: Female, 74 years old. Urinary retention. TECHNIQUE: Ultrasound evaluation of the kidneys was performed with real-time and static escalona-scale imaging. COMPARISON: 07/17/2011. FINDINGS: RIGHT KIDNEY: Normal location of the right kidney, which is normal in size. Increased echogenicity. The right kidney measures 9.9 x 5.3 x 4.9 cm. There is a normal cortex of the right kidney. The renal cortex measures 1.4 cm. There is no right renal mass or cyst. There are no right renal calculi. There is no right hydronephrosis. DISTAL RIGHT URETER: There is non-visualization of the distal right ureter. There is no demonstrated right ureterovesical junction calculus. There is no demonstrated right ureteral jet. LEFT KIDNEY: Normal location of the left kidney, which is normal in size. Increased echogenicity. The left kidney measures 10.2 x 4.8 x 5.4 cm. There is a normal cortex of the left kidney. The renal cortex measures 1. cm. There is no left renal mass or cyst. There are no left renal calculi. There is no left hydronephrosis. DISTAL LEFT URETER: There is non-visualization of the distal left ureter. There is no demonstrated left ureterovesical junction calculus. There is no demonstrated left ureteral jet. BLADDER: Bladder decompressed by Ellison catheter. US/Kidney and Bladder IMPRESSION: Increased renal echogenicity suggestive of medical renal disease. No hydronephrosis. Bladder decompressed by Ellison catheter, limiting evaluation. Electronically Signed: Taiwo Gilbert MD at 2:47 EDT , Service support ,
--- NOTE | 2019-12-04 14:35 | EKG12_ITS ---
Test Reason : PROLONGED QT Blood Pressure : / mmHG Vent. Rate : 066 BPM Atrial Rate : 066 BPM P-R Int : 202 ms QRS Dur : 136 ms QT Int : 492 ms P-R-T Axes : 061 -06 101 degrees QTc Int : 515 ms Sinus rhythm with marked sinus arrhythmia Non-specific intra-ventricular conduction block Abnormal ECG When compared with ECG of 07-JUL-2011 15:50, Questionable change in QRS duration Confirmed by CHER CELAYA, BRIANA ([id number]), scientific publications editor NOELLE MONTANEZ ([id number]) on 12/14/2019 12:59:22 P M Referred By: TAMMY Confirmed By:TIFFANIE KWON MD
--- NOTE | 2019-12-04 16:00 | CHAPLAIN ---
Type of Pastoral Visit _x__ Initial Visit ___ Follow-up Visit ___ On-call Visit ___ General Patient Visit ___ Spiritual Assessment ___ Family Conference ___ Bereavement ___ Rapid Response ___ Code Blue ___ Other (describe below) Pastoral Care Referral From _x__ Patient ___ Family ___ Nurse ___ Physician ___ Airframe And Powerplant Mechanic ___ Chain Splitter ___ Other (describe below) Sacrament/Intervention _x__ Active listening ___ Anointing ___ Nondenominational ___ Bereavement ___ Communion ___ Oralia exploration ___ _x__ Life review _x__ Prayer ___ Reconciliation ___ Sacrament of Sick _x__ Supportive presence ___ Wedding ___ Other (describe below) Pastoral Comments patient welcoming of visit and conversation; pt gave some life review and explanation of her family; pt expresses positive attitude about being at [facility] for therapy; pt goal is to see more of her gr grandchildren grow up; pt is of Confucianist oralia and welcomed prayer
[2019-12-04 16:24] LABS: Albumin, Serum 2.6 g/dL (3.2-5.0)
[2019-12-04 16:27] LABS: Phosphorus 4.4 mg/dL (2.5-4.9)
[2019-12-04 16:41] LABS: Vitamin D,25 Hydroxy 65.8 ng/mL
[2019-12-04] MEDS: Gabapentin 300 MG Capsule PO (22:33)
[2019-12-04] MEDS: Nortriptyline 25 MG Capsule 50 MG PO (22:33)
[2019-12-04] MEDS: Atorvastatin Calcium 40 MG Tablet PO (22:33)
[2019-12-05] VITALS (10 sets, daily range): BP systolic 107–136; BP diastolic 52–68; PULSE 57–90; RESP 16–22; TEMP 36.4–37.2; O2SAT 94–97
[2019-12-05] MEDS: Levothyroxine 100 MCG Tablet PO (06:05)
[2019-12-05] MEDS: Acetaminophen 500 MG Tablet 1000 MG PO ×3 (06:05→21:45)
[2019-12-05] MEDS: Ipratropium/Albuterol Sulfate 3 ML AMPUL.NEB INHALATION ×3 (07:25→19:05)
[2019-12-05] MEDS: Budesonide Respules 0.5 MG/2 ML AMPUL.NEB. INHALATION ×2 (07:26→19:05)
[2019-12-05] MEDS: Metoprolol(XL)Succ 25 MG Tablet PO (08:36)
[2019-12-05] MEDS: Senna/Docusate Sodium 1 Tablet 2 TABLET PO (08:37)
[2019-12-05] MEDS: Magnesium Chloride 64 MG Delay Rel.Tablet 128 MG PO (08:37)
[2019-12-05] MEDS: Flecainide 100 MG Tablet PO ×2 (08:37→21:45)
[2019-12-05] MEDS: Amox/Clavulanate 500 MG Tablet PO ×2 (08:38→16:58)
[2019-12-05] MEDS: Pantoprazole Sodium 40 MG Tablet PO (08:38)
[2019-12-05] MEDS: Doxycycline 100 MG CAPSULE PO ×2 (08:38→21:44)
[2019-12-05] MEDS: Aspirin E.C. 81 MG Tablet PO (08:38)
[2019-12-05] MEDS: Furosemide 40 MG Tablet PO (08:39)
[2019-12-05] MEDS: DULoxetine Hcl 60 MG Capsule PO (08:39)
[2019-12-05] MEDS: levETIRAcetam 500 MG Tablet PO ×2 (08:39→21:44)
[2019-12-05] MEDS: Allopurinol 100 MG Tablet PO (08:39)
--- NOTE | 2019-12-05 09:03 | PCM.PN.BLA ---
Progress Note Afebrile VSS Maintaining appropriate oxygen saturation on RA Oral intake is poor Discussed with nursing - no problems that need addressed Reviewed the PT/OT/ST notes Medication list reviewed. Phosphorus and magnesium are within normal limits. Calcium corrected for hypoalbuminemia is 10.92 which is a little high. Stool is Hemoccult positive. Vitamin D 25 hydroxy is 65.8 which is normal. Microbiology: Sputum is growing a yeastlike organism. Renal ultrasound showed increased renal echogenicity suggestive of medical renal disease. There was no hydronephrosis. There were no calculi. She is constipated and has not had a BM for 4 days alert, NAD, sitting in the WC and was observed propelling it slowly down the jaimes Lungs-better air exchange however she still has some scattered end expiratory wheezing. No tachypnea, no conversational dyspnea. Heart-irregular with controlled ventricular response. No gallop Abdomen-soft, nontender, nondistended, low-frequency bowel sounds heard No calf pain No rashes Edema of the left lower extremity is improving, no right lower extremity edema Impressions 1. Constipation 2. Encephalopathy secondary to multiple MAINTENANCE PLUMBER depressant medications-adjustments underway 3. Hypercalcemia-vitamin D level is within normal limits. Will decrease the vitamin D from 5000 units daily to 1000 units daily in light of elevated calcium 4. Subtherapeutic warfarin-she was just recently restarted on warfarin and was not given loading dose 5. Aspiration pneumonia with bronchospasm Add Miralax to the drug regimen. Hold Lasix - poor oral intake Decrease duloxetine to 30 mg daily-due to creatinine clearance being less than 30 this medication should be avoided if at all possible. Will taper off. CBC with differential, BMP, PT/INR in the a.m. Discussed how slowly to taper TCAs with the Pharm.D. Add pantoprazole 40 mg daily for GI protection. Uric acid is not optimal on Allopurinol 100 mg daily...it is 7.3 however she is asymptomatic and dehydrated and on Lasix so will continue with 100 mg for now. Will need a sleep study post discharge STROKE Vital Signs/Narrative: Vital Signs Pulse Resp Pulse Ox 12/05/19 08:36 71 12/05/19 07:26 89 22 H 94 12/05/19 07:25 85 94 Inpatient E&M: 21691 Subs Hosp L2
[2019-12-05] MEDS: Famotidine 20 MG Tablet PO (10:42)
[2019-12-05] MEDS: Warfarin 2.5 MG, Warfarin 2 MG 4.5 MG PO (16:58)
[2019-12-05] MEDS: Gabapentin 100 MG Capsule 200 MG PO (21:44)
[2019-12-05] MEDS: Atorvastatin Calcium 40 MG Tablet PO (21:44)
[2019-12-05] MEDS: Nortriptyline 25 MG Capsule 50 MG PO (21:44)
[2019-12-06 05:46] LABS: Absolute Lymphocyte Count 0.72 X10^3/uL (0.83-4.51); Absolute Neutrophil Count 4.8 X10^3/uL (2.0-7.7); Basophil# 0.02 X10^3/uL; Basophil% 0.3 % (0-1); Eosinophil# 0.39 X10^3/uL; Eosinophils% 6.1 % (0-5); Hematocrit 26.8 % (37-47); Lymphocyte # 0.72 X10^3/ul (4.0); Lymphocyte % 11.3 % (19-41); Mean Corp Hgb Conc 29.9 g/dL (32-36); Mean Corpuscular Hgb 28.8 pg (27.0-32.0); Mean Corpuscular Volume 96.4 fL (81-99); Mean Platelet Vol. 9.1 fl (6.2-12.0); Monocyte# 0.43 X10^3/uL; Monocyte% 6.8 % (0-10); NRBC Flagged by Analyzer 0 % (0-5); Neutrophil # 4.77 X10^3/uL (2.7-7.7); Platelet Count 260 K/mm3 (150-450); RBC Distribution Width CV 14.2 % (11.6-14.6); RBC Distribution Width SD 50.4 fl (35.1-43.9); Red Blood Count 2.78 M/mm3 (4.2-5.4); White Blood Count 6.4 K/mm3 (4.4-11.0)
[2019-12-06 05:54] LABS: International Normalized Ratio 1.5; Prothrombin Time (Protime)PT. 17.8 SECONDS (11.7-14.9)
[2019-12-06 06:13] LABS: Anion Gap 7 (5-15); BUN 41 mg/dL (7-18); BUN/Creat Ratio 24.4 RATIO (10-20); Calcium,Total 9.4 mg/dL (8.5-10.1); Chloride 109 mmol/L (98-107); Creatinine, Serum 1.68 mg/dL (0.55-1.02); EST Glomerular Filtration Rate 31 mL/min (>60); Est Glom Filt Rate - Afr Amer 38 mL/min (>60); Glucose 87 mg/dL (74-106); Potassium 3.6 mmol/L (3.5-5.1); Sodium Level 144 mmol/L (136-145)
[2019-12-06] MEDS: Acetaminophen 500 MG Tablet 1000 MG PO ×3 (06:25→22:01)
[2019-12-06] MEDS: Levothyroxine 100 MCG Tablet PO (06:25)
[2019-12-06 07:10] VITALS: PULSE 68; RESP 16; O2SAT 99
[2019-12-06] MEDS: Budesonide Respules 0.5 MG/2 ML AMPUL.NEB. INHALATION ×2 (07:10→18:40)
[2019-12-06] MEDS: Ipratropium/Albuterol Sulfate 3 ML AMPUL.NEB INHALATION ×2 (07:10→10:45)
[2019-12-06] MEDS: Amox/Clavulanate 500 MG Tablet PO ×2 (07:56→17:28)
[2019-12-06] MEDS: DULoxetine Hcl 30 MG Capsule PO (07:57)
[2019-12-06] MEDS: Allopurinol 100 MG Tablet PO (07:57)
[2019-12-06] MEDS: Aspirin E.C. 81 MG Tablet PO (07:57)
[2019-12-06] MEDS: Magnesium Chloride 64 MG Delay Rel.Tablet 128 MG PO (07:58)
[2019-12-06] MEDS: Famotidine 20 MG Tablet PO (07:58)
[2019-12-06] MEDS: Flecainide 100 MG Tablet PO ×2 (07:59→22:02)
[2019-12-06] MEDS: Pantoprazole Sodium 40 MG Tablet PO (07:59)
[2019-12-06] MEDS: Doxycycline 100 MG CAPSULE PO ×2 (07:59→22:02)
[2019-12-06 08:00] VITALS: BP 130/84; PULSE 74
[2019-12-06] MEDS: levETIRAcetam 500 MG Tablet PO ×2 (08:00→22:02)
[2019-12-06] MEDS: Metoprolol(XL)Succ 25 MG Tablet PO (08:00)
[2019-12-06 10:00] VITALS: BP 130/84; PULSE 74; RESP 20; TEMP 36.4; O2SAT 100
[2019-12-06 10:45] VITALS: PULSE 61; RESP 16; O2SAT 91
--- NOTE | 2019-12-06 10:45 | CPS ---
Patient reports she is working on PEP therapy on own.
--- NOTE | 2019-12-06 12:16 | PCM.PN.BLA ---
Progress Note Day #5 Augmentin Afebrile since admission VSS-blood pressure is well controlled. Pulse rate is within normal limits Pulse ox today is 91% on room air. Pulse ox on 2 L is 100%. Oral intake is improving Constipation has resolved and she actually had 4 bowel movements on 12/05/2019 and 2 bowel movements so far today. This may be related to Augmentin but she is also receiving to stool softeners because she was constipated. Discussed with nursing - no problems that need addressed Reviewed the PT/OT/ST notes Medication list reviewed. All lab was personally reviewed. White blood cell count is normal today at 6.4. Hemoglobin is stable at 8.0 with an MCV of 96.4. RDW standard deviation is increased. Platelets are within normal limits. 75% neutrophils and 6.1% eosinophils, up from 4.6% prior to Augmentin. Patient denies rash or pruritus. INR is 1.5 today. Sodium is 144 and the potassium is 3.6. The BUN is 41 and the creatinine is 1.68, down from 1.77 on 12/04/2019. Calcium is within normal limits. Flecainide level is still pending. Stool is Hemoccult positive. She is on pantoprazole 40 mg p.o. daily. Del tells me that she slept well last night. Trazodone was discontinued last week and we are tapering the Pamelor...currently down to 50 mg Q HS. She tells me that her cough is less and she feels her breathing is better. She denies shortness of breath. She also denies chest pain. Alert, appropriate, no apparent distress, sitting in the wheelchair with the left leg extended/elevated. Mucous membranes are a little dry, no mucosal lesions Lungs-much improved air exchange, no wheezing and no rales today. She is not tachypneic and has no conversational dyspnea or accessory muscle use. Heart-regular, no pericardial friction rub, no gallop Some edema of the toes on the left foot but much improved over admission No calf tenderness She feels that her thinking is a little better today......she is able to do the crossword puzzle quicker. I suspect this will continue to improve once we are able to transition her off some of the OUTREACH COUNSELOR depressants. Impressions 1. Debility secondary to traumatic fracture of the left ankle and subsequent ORIF for and she is nonweightbearing on the left lower extremity 2. Encephalopathy secondary to multiple OUTREACH COUNSELOR depressant medications 3. Aspiration pneumonia 4. Bronchospasm secondary to aspiration pneumonia-improving 5. Stage III chronic renal failure -somewhat better with hydration 6. Dehydration 7. Sleep disordered breathing with an abnormal overnight trending pulse ox and a stop bang score of 6 8. Subtherapeutic PT/INR 9. Abnormal swallowing-scheduled for MBS today 10. Hemoccult positive stool Continue to encouraGE increased fluid intake. Tapered the Pamelor by 25 mg next week and the following week taper to 10 mg and then discontinue in 1 week Await the flecainide level. Continue Keppra 500 mg twice daily. This too can increase confusion, dizziness and ataxia. If no significant improvement with tapering the duloxetine and discontinuing Pamelor and trazodone may need to consider another antiepileptic drug. DC the duonebs but continue albuterol aerosols every 2 hours as needed wheezing Give an extra dose of warfarin today and recheck PT/INR in the a.m. Finished 7 days of Augmentin for aspiration pneumonia Decrease gabapentin to 100 mg p.o. nightly If she has not had recent endoscopy she should have following DC to search for the etiology of the heme + stool. STROKE Vital Signs/Narrative: Vital Signs Temp Pulse Resp BP Pulse Ox 12/06/19 10:45 61 16 91 12/06/19 10:00 97.6 F L 74 20 H 130/84 H 100 Inpatient E&M: 21060 Subs Hosp L2
--- NOTE | 2019-12-06 13:52 | SP.MBSS_ITS ---
Modified Barium Swallow - Patient Information Study Date: 12/06/19 Study Time: 13:00 Direct Billable Minutes: 50 Total Minutes procedure & reportin Diagnosis: Dysphagia (R13.12) Referring Physician: Haylee Solano Reason for Referral: The Patient is a 74 year old female referred for a modified barium swallow (MBS) study to objectively assess the Patients oropharyngeal swallow function under fluoroscopy secondary to suspected swallow dysfunction; currently admitted to [facility] physical debility due to bimalleolar fracture of the left ankle and subsequent ORIF Medical History: Esophageal reflux, seizure disorder, coronary artery disease, venous thrombosis and embolism, status post thoracic aortic aneurysm repair, status post aortic valve replacement, hypertension, hyperlipidemia, hypothyroidism, spinal stenosis, hyperuricemia, gout, morbid obesity, stage 3 chronic kidney disease Respiratory Status: Oxygenating on Room Air - Penetration-Aspiration Scale Score Thin Liquid via teaspoon Result: 1= does not enter airway Thin Liquid Result: 1= does not enter airway Thin Liquid Trial 2 Result: 1= does not enter airway Thin Liquid Trial 3 Result: 1= does not enter airway Thin Liquid Trial 4 Result: 2= enter airway/above vocal folds/ejected Pudding Result: 1= does not enter airway Cookie Result: 1= does not enter airway Thin Liquid Chin tuck Result: 1= does not enter airway Thin Liquid Chin tuck Trial 2 Result: 1= does not enter airway - Oral Phase Labial Seal: No Labial Escape Tongue Control During Bolus Hold: Cohesive bolus between tongue to palatal seal Bolus Preparation/Mastication: Timely and efficient chewing and mashing Bolus Transport/Lingual Motion: Brisk tongue motion Oral Residue: Trace residue lining oral structures - Pharyngeal Phase Initiation of Pharyngeal Swallow: Bolus head in valleculae Soft Palate Elevation: No bolus between soft palate and pharyngeal wall Laryngeal Elevation: Partial superior movement thyroid cart/partial apprx aryt- epig petiole Anterior Hyoid Excursion: Partial anterior movement Epiglottic Movement: Complete inversion Laryngeal Vestibule Closure at Height of Swallow: Complete; no air/contrast in laryngeal vestibule Pharyngeal Stripping Wave: Present - complete Pharyngoesophageal Segment Opening: Complete distension and complete duration; no obstruction of flow Tongue Base Retraction: Trace column of contrast between tongue base & post. pharyngeal wall Pharyngeal Residue: Trace residue within or on pharyngeal structures - Esophageal Phase Esophageal Clearance: Esophageal retention - Treatment Strategies Effects of treatment strategies attemped:: No clinically significant impact from use of the chin tuck posture. - Diagnosis/Impression Diagnosis: Within functional limits Impression: The Patient presents with mastication and deglutition abilities found to be grossly within functional limits (DSRS: 1; DCS: D0) - Recommendations Comment: DIET TEXTURE RECOMMENDATIONS: regular textured (IDDSI: 7), thin liquid diet (IDDSI: 0) diet RECOMMENDED COMPENSATORY STRATEGIES: reduced bolus volume / rate of ingestion, seated upright at 90 degrees during PO intake, remain upright for 30-60 minutes post meal (GERD precaution). medications one at a time with a liquid chaser. Recommend Repeat Modified Barium Swallow: No Need for Skilled Speech Therapy Services: No Education Completed: 1. Described result of evaluation., 2. Pt understands evaluation & agrees with goals and treatment plan. Comment: Esophageal retention may not represent a clinically significant finding; further esophageal based workup would be indicated if esophageal phase dysfunction is suspected, though no clinical indicators are present at this time. - Image Count: 1,466 - Status Active ST Patient: Active - Contact Information [facility] Speech Therapy:: Dale Peck M.A., DEBORAH-METHODS TIME ANALYST, CBIS MBSImP Certified, LSVT Certified [facility] Speech-Language Pathology Department Email: [email or web address]
[2019-12-06 18:40] VITALS: PULSE 66; RESP 18
[2019-12-06] MEDS: Albuterol 2.5 MG/3 ML VIAL.NEB. INHALATION (18:40)
[2019-12-06 22:00] VITALS: BP 115/61; PULSE 61; RESP 20; TEMP 36.6; O2SAT 94
[2019-12-06] MEDS: Nortriptyline 25 MG Capsule 50 MG PO (22:01)
[2019-12-06] MEDS: Gabapentin 100 MG Capsule PO (22:02)
[2019-12-06] MEDS: Atorvastatin Calcium 40 MG Tablet PO (22:02)
--- NOTE | 2019-12-07 04:37 | NURSING ---
Reviewed and agree with MULTIMEDIA TECHNICIAN documentation and charting.
[2019-12-07 06:09] LABS: International Normalized Ratio 1.6; Prothrombin Time (Protime)PT. 18.6 SECONDS (11.7-14.9)
[2019-12-07 06:32] VITALS: PULSE 59; RESP 16; O2SAT 96
[2019-12-07] MEDS: Budesonide Respules 0.5 MG/2 ML AMPUL.NEB. INHALATION ×2 (06:32→19:55)
[2019-12-07] MEDS: Levothyroxine 100 MCG Tablet PO (07:03)
[2019-12-07] MEDS: Acetaminophen 500 MG Tablet 1000 MG PO ×3 (07:03→21:05)
[2019-12-07] MEDS: Famotidine 20 MG Tablet PO (08:30)
[2019-12-07] MEDS: Allopurinol 100 MG Tablet PO (08:30)
[2019-12-07] MEDS: Aspirin E.C. 81 MG Tablet PO (08:30)
[2019-12-07] MEDS: Amox/Clavulanate 500 MG Tablet PO ×2 (08:30→16:40)
[2019-12-07 08:31] VITALS: PULSE 64
[2019-12-07] MEDS: Flecainide 100 MG Tablet PO ×2 (08:31→20:32)
[2019-12-07] MEDS: Metoprolol(XL)Succ 25 MG Tablet PO (08:31)
[2019-12-07] MEDS: Pantoprazole Sodium 40 MG Tablet PO (08:31)
[2019-12-07] MEDS: Magnesium Chloride 64 MG Delay Rel.Tablet 128 MG PO (08:31)
[2019-12-07] MEDS: DULoxetine Hcl 30 MG Capsule PO (08:31)
[2019-12-07] MEDS: Doxycycline 100 MG CAPSULE PO ×2 (08:31→20:31)
[2019-12-07] MEDS: levETIRAcetam 500 MG Tablet PO ×2 (08:31→20:31)
[2019-12-07 08:51] VITALS: BP 136/71; PULSE 64; RESP 16; TEMP 36.9; O2SAT 94
--- NOTE | 2019-12-07 10:56 | CASEMGMT ---
Social Work IDT met with patient and dtr via conference call for Team meeting. Discussed patient's progress in therapy. Pt is min for slideboard transfers, standing in // bars, struggles to maintain NWBS w/SPT, self-propelling in w/c at SBA. Pt is mod for bathing while seated needing min verbal cues, min for UE dressing,m mod for LE dressing and will trial AE, and is max for toileting tasks. ST working on higher level cognitive tasks. Pt received MBS and no s/s of aspiration. ST working on word finding, processing and attention. Dtr had been managing finances and meds prior. Pt is using O2 at night. Physician suspecting ELIDA. Explained Medicare benefit with 15 approved days with DC 12/14. IDT recommending continued therapy at SNF. Dtr agreeable. Pt ultimately agreeable to SNF. Provided list to pt and dtr. Will continue to follow. Navya Glover, AP OPERATOR GILL TENDER
--- NOTE | 2019-12-07 15:21 | PN_ITS ---
Progress Note Wei was seen on team rounds today and her daughter Fátima participated by phone. Afebrile since admission Vital signs are stable-blood pressure is controlled. Heart rate is mostly in the 50s and low 60s. She is maintaining appropriate oxygen saturation on room air Good oral intake PT/OT/ST notes were reviewed. no concerns from nursing INR is still subtherapeutic-adjustments were made in the warfarin dosage Wei denies cough, shortness of breath, sore throat or chest pain. Alert, oriented x3, appropriate, no apparent distress Lungs-clear to auscultation, no tachypnea, no conversational dyspnea, no wheezing Heart-regular rate and rhythm, no gallop Abdomen-soft, nontender, nondistended, bowel sounds heard in all 4 quadrants No calf pain Swelling in the left foot is minimal and she has intact sensation to the toes on the left foot. Impressions 1. Debility secondary to traumatic fracture of the left ankle and subsequent ORIF 2. Encephalopathy-much improved with discontinuation of some of the medications causing TELEGRAPH DISPATCHER depression and tapering of others 3. Urine retention-I suspect that this is secondary to multiple medications isi t lead to urine retention. 4. Aspiration pneumonia-much improved 5. Sleep disordered breathing. Stop bang score is 6 6. Subtherapeutic INR-adjustments have been made in warfarin dosage Wei reports that she is thinking more clearly and is able to respond to questions more quickly without feeling confused. We discussed a stay in longterm following discharge from acute rehab since Wei lives alone and her daughter will not be able to stay with her. She is still having difficulty maintaining nonweightbearing status and she has poor safety awareness In the a.m. and a hemoglobin Inpatient E&M: 37606 Subs Hosp L2
--- NOTE | 2019-12-07 16:28 | CHAPLAIN ---
Type of Pastoral Visit ___ Initial Visit _x__ Follow-up Visit ___ On-call Visit ___ General Patient Visit ___ Spiritual Assessment ___ Family Conference ___ Bereavement ___ Rapid Response ___ Code Blue ___ Other (describe below) Pastoral Care Referral From ___ Patient ___ Family _x__ Nurse ___ Physician ___ Fire Protection Fabricator ___ Lead Machinist ___ Other (describe below) Sacrament/Intervention _x__ Active listening ___ Anointing ___ Jew ___ Bereavement ___ Communion ___ Oralia exploration ___ ___ Life review _x__ Prayer ___ Reconciliation ___ Sacrament of Sick _x__ Supportive presence ___ Wedding ___ Other (describe below) Pastoral Comments
[2019-12-07 19:23] VITALS: BP 130/57; PULSE 56; RESP 18; TEMP 36.4; O2SAT 97
[2019-12-07 19:55] VITALS: PULSE 54; RESP 16
[2019-12-07] MEDS: Atorvastatin Calcium 40 MG Tablet PO (20:31)
[2019-12-07] MEDS: Gabapentin 100 MG Capsule PO (20:32)
[2019-12-07] MEDS: Nortriptyline 25 MG Capsule 50 MG PO (20:32)
[2019-12-07 20:54] LABS: Flecainide (Tambocor) 085662 1.02 ug/mL (0.20-1.00)
[2019-12-07 22:00] VITALS: RESP 17
[2019-12-08] MEDS: Acetaminophen 500 MG Tablet 1000 MG PO ×3 (06:15→23:01)
[2019-12-08] MEDS: Levothyroxine 100 MCG Tablet PO (06:15)
[2019-12-08 06:16] LABS: International Normalized Ratio 1.9; Prothrombin Time (Protime)PT. 21.1 SECONDS (11.7-14.9)
[2019-12-08 08:11] VITALS: PULSE 52; RESP 12
[2019-12-08 08:21] VITALS: O2SAT 95
[2019-12-08] MEDS: Amox/Clavulanate 500 MG Tablet PO ×2 (08:44→17:16)
[2019-12-08] MEDS: Pantoprazole Sodium 40 MG Tablet PO (08:44)
[2019-12-08] MEDS: DULoxetine Hcl 30 MG Capsule PO (08:44)
[2019-12-08] MEDS: levETIRAcetam 500 MG Tablet PO ×2 (08:44→23:02)
[2019-12-08] MEDS: Aspirin E.C. 81 MG Tablet PO (08:44)
[2019-12-08 08:45] VITALS: PULSE 60
[2019-12-08] MEDS: Allopurinol 100 MG Tablet PO (08:45)
[2019-12-08] MEDS: Doxycycline 100 MG CAPSULE PO ×2 (08:45→23:03)
[2019-12-08] MEDS: Flecainide 100 MG Tablet PO ×2 (08:45→23:01)
[2019-12-08] MEDS: Magnesium Chloride 64 MG Delay Rel.Tablet 128 MG PO (08:45)
[2019-12-08] MEDS: Metoprolol(XL)Succ 25 MG Tablet PO (08:45)
[2019-12-08] MEDS: Famotidine 20 MG Tablet PO (08:45)
[2019-12-08 09:08] VITALS: BP 120/65; PULSE 58; RESP 16; TEMP 36.6; O2SAT 96
--- NOTE | 2019-12-08 12:12 | PCM.PN.BLA ---
Progress Note Flecainide level is 1.02 and the top of the range is 1.00. She denies palpitations. Vital signs are stable She is maintaining appropriate oxygen saturation on room air. Oral intake is good. INR is still subtherapeutic today at 1.9. Adjustments have been made in the dose. Goal is 2.3-3. Alert, oriented x3, appropriate, no obvious distress. Lungs-clear to auscultation without wheezes, rhonchi or rails. Abdomen-soft, nontender, nondistended, normal bowel sounds heard, no guarding with palpation No calf pain Minimal swelling in the toes of the left foot and they are warm to touch with intact sensation. Impressions 1. Aspiration pneumonia-we will finish 7 days of Augmentin today 2. Urine retention-likely secondary to multiple medications causing urine retention. Voiding trial next week. 3. Encephalopathy-I suspect that this is in part drug-induced and may in part be due to dementia. She is certainly much improved with discontinuation of a few medications and tapering of others. She still has poor safety awareness and requires some cueing. May need neurocognitive testing post discharge. 4. Sleep disordered breathing-will need a sleep study going forward 5. Subtherapeutic INR-adjustments have been made Continue the current dosage of warfarin - she will receive 4.5 mg today. Daily PT/INR until Wednesday Check an H&H in the a.m. 7-day course of Augmentin finishes today. Discontinue gabapentin completely on Wednesday if she has no restless leg and is still sleeping well. Continue doxycycline until she sees Dr. Parker - At least until Dec 21 She would like to go to TCU following DC from rehab since she lives alone and has no one to help her after DC......she is not safe to be alone and is not able to maintain non-wt bearing on the LLE DC budesonide. Continue PRN albuterol aerosols for wheezing and shortness of breath. STROKE Vital Signs/Narrative: Vital Signs Temp Pulse Resp BP Pulse Ox 12/08/19 09:08 98 F 58 L 16 120/65 96 12/08/19 08:45 60 12/08/19 08:21 95 Inpatient E&M: 32813 Subs Hosp L2
[2019-12-08] MEDS: Warfarin 2.5 MG, Warfarin 2 MG 4.5 MG PO (17:16)
[2019-12-08 19:53] VITALS: BP 120/60; PULSE 58; RESP 18; TEMP 36.6; O2SAT 94
[2019-12-08] MEDS: Atorvastatin Calcium 40 MG Tablet PO (23:02)
[2019-12-08] MEDS: Gabapentin 100 MG Capsule PO (23:02)
[2019-12-08] MEDS: Nortriptyline 25 MG Capsule 50 MG PO (23:02)
[2019-12-09] MEDS: Acetaminophen 500 MG Tablet 1000 MG PO ×3 (05:32→21:13)
[2019-12-09] MEDS: Levothyroxine 100 MCG Tablet PO (05:33)
[2019-12-09 06:55] VITALS: PULSE 79; RESP 18; O2SAT 94
[2019-12-09 07:04] LABS: Hematocrit 27.9 % (37-47); Hemoglobin 8.4 g/dL (12.0-15.0)
[2019-12-09 07:07] LABS: International Normalized Ratio 2.3; Prothrombin Time (Protime)PT. 24.7 SECONDS (11.7-14.9)
[2019-12-09] MEDS: Doxycycline 100 MG CAPSULE PO ×2 (08:19→21:15)
[2019-12-09] MEDS: DULoxetine Hcl 30 MG Capsule PO (08:19)
[2019-12-09] MEDS: Magnesium Chloride 64 MG Delay Rel.Tablet 128 MG PO (08:19)
[2019-12-09] MEDS: Aspirin E.C. 81 MG Tablet PO (08:19)
[2019-12-09] MEDS: Allopurinol 100 MG Tablet PO (08:19)
[2019-12-09] MEDS: Famotidine 20 MG Tablet PO (08:19)
[2019-12-09 08:20] VITALS: PULSE 70
[2019-12-09] MEDS: Metoprolol(XL)Succ 25 MG Tablet PO (08:20)
[2019-12-09] MEDS: levETIRAcetam 500 MG Tablet PO ×2 (08:20→21:16)
[2019-12-09] MEDS: Flecainide 100 MG Tablet PO ×2 (08:20→21:14)
[2019-12-09] MEDS: Pantoprazole Sodium 40 MG Tablet PO (08:20)
[2019-12-09 10:00] VITALS: BP 139/49; PULSE 59; RESP 12; TEMP 37.1; O2SAT 93
--- NOTE | 2019-12-09 12:00 | NURSING ---
Large incontinence of stool noted. Patient got self up in w/c unassisted due to having to use the bathroom. 1:1 provided offender job retention specialist light use and safety. Max assist for all toileting needs and transfers x 2 assist for nursing staff. Ellison to CD. Patient is alert and oriented x 3 but forgetful and needs frequent reminders.
[2019-12-09 19:29] VITALS: BP 140/50; PULSE 80; RESP 18; TEMP 36.4; O2SAT 97
[2019-12-09] MEDS: Atorvastatin Calcium 40 MG Tablet PO (21:14)
[2019-12-09] MEDS: Nortriptyline 25 MG Capsule 50 MG PO (21:14)
[2019-12-09] MEDS: Gabapentin 100 MG Capsule PO (21:14)
[2019-12-09 22:00] VITALS: RESP 16; O2SAT 96
[2019-12-10] MEDS: Acetaminophen 500 MG Tablet 1000 MG PO ×3 (06:15→20:57)
[2019-12-10] MEDS: Levothyroxine 100 MCG Tablet PO (06:15)
[2019-12-10 06:39] LABS: International Normalized Ratio 2.4; Prothrombin Time (Protime)PT. 25.8 SECONDS (11.7-14.9)
[2019-12-10 07:15] VITALS: O2SAT 93
[2019-12-10] MEDS: Allopurinol 100 MG Tablet PO (08:51)
[2019-12-10] MEDS: Aspirin E.C. 81 MG Tablet PO (08:51)
[2019-12-10] MEDS: DULoxetine Hcl 30 MG Capsule PO (08:52)
[2019-12-10] MEDS: Doxycycline 100 MG CAPSULE PO ×2 (08:52→20:55)
[2019-12-10 10:00] VITALS: BP 127/64; PULSE 51; RESP 18; TEMP 36.7; O2SAT 94
[2019-12-10 11:11] VITALS: PULSE 68
[2019-12-10] MEDS: Famotidine 20 MG Tablet PO (11:11)
[2019-12-10] MEDS: levETIRAcetam 500 MG Tablet PO ×2 (11:11→20:56)
[2019-12-10] MEDS: Metoprolol(XL)Succ 25 MG Tablet PO (11:11)
[2019-12-10] MEDS: Pantoprazole Sodium 40 MG Tablet PO (11:11)
[2019-12-10] MEDS: Flecainide 100 MG Tablet PO ×2 (11:11→20:57)
[2019-12-10] MEDS: Magnesium Chloride 64 MG Delay Rel.Tablet 128 MG PO (11:11)
[2019-12-10 18:54] VITALS: BP 148/76; PULSE 65; RESP 20; TEMP 37; O2SAT 96
[2019-12-10] MEDS: Gabapentin 100 MG Capsule PO (20:56)
[2019-12-10] MEDS: Atorvastatin Calcium 40 MG Tablet PO (20:56)
[2019-12-10] MEDS: Nortriptyline 25 MG Capsule 50 MG PO (20:57)
[2019-12-10 22:00] VITALS: RESP 17; O2SAT 95
[2019-12-11 06:12] LABS: International Normalized Ratio 2.6; Prothrombin Time (Protime)PT. 27.1 SECONDS (11.7-14.9)
[2019-12-11] MEDS: Acetaminophen 500 MG Tablet 1000 MG PO ×3 (06:21→20:47)
[2019-12-11] MEDS: Levothyroxine 100 MCG Tablet PO (06:21)
[2019-12-11 06:25] LABS: Anion Gap 4 (5-15); BUN 31 mg/dL (7-18); BUN/Creat Ratio 21.1 RATIO (10-20); Calcium,Total 9.5 mg/dL (8.5-10.1); Chloride 115 mmol/L (98-107); Creatinine, Serum 1.47 mg/dL (0.55-1.02); EST Glomerular Filtration Rate 37 mL/min (>60); Est Glom Filt Rate - Afr Amer 44 mL/min (>60); Estimated Creatinine Clearance 28.11 ml/min; Glucose 85 mg/dL (74-106); Sodium Level 145 mmol/L (136-145)
[2019-12-11] MEDS: DULoxetine Hcl 30 MG Capsule PO (08:09)
[2019-12-11] MEDS: Allopurinol 100 MG Tablet PO (08:09)
[2019-12-11] MEDS: Doxycycline 100 MG CAPSULE PO ×2 (08:09→20:41)
[2019-12-11] MEDS: levETIRAcetam 500 MG Tablet PO ×2 (08:09→20:41)
[2019-12-11] MEDS: Aspirin E.C. 81 MG Tablet PO (08:09)
[2019-12-11 08:10] VITALS: PULSE 63
[2019-12-11] MEDS: Metoprolol(XL)Succ 25 MG Tablet PO (08:10)
[2019-12-11] MEDS: Famotidine 20 MG Tablet PO (08:10)
[2019-12-11] MEDS: Magnesium Chloride 64 MG Delay Rel.Tablet 128 MG PO (08:10)
[2019-12-11] MEDS: Pantoprazole Sodium 40 MG Tablet PO (08:10)
[2019-12-11] MEDS: Flecainide 100 MG Tablet PO ×2 (08:10→20:42)
[2019-12-11 08:34] VITALS: BP 132/64; PULSE 63; RESP 16; TEMP 36.6; O2SAT 94
--- NOTE | 2019-12-11 10:14 | CASEMGMT ---
Addendum entered by Navya Glover 12/11/19 11:20: Pt was active with SW prior. Ordered [facility] SW Original Note: Social Work IDT met with patient for Team meeting. Team meeting changed to Wednesday per dtr request so she could attend vs conference call, but dtr not in attendance. Pt to speak with dtr after Team to provide updated. Discussed patient's progress in therapy. Pt is SBA for slideboard tx into care, ambulating w/ at SBA, CGA to min for scoot pivot tx to w/c, min for bathing, set up for grooming, UE dressing Smith for bra, pt wears gown, but Smith for LE dressing for balance. Pt has new cath but nursing trailing to remove this date. Pt is Smith for toileting tasks for B<M. Dtr's did buy pt toileting kit for home. Pt has improved safety awareness. Pt reports improved word finding d/t to medication adjustment. Explained Medicare approved 15 days with EDC 12/14. Pt and dtr spoke about DC plans. all three children can assist pt at home and will with her 24/7 taking turns. IDT agreeable for pt to DC home vs SNF. No DME needs. Pt agreeable to [facility]. Referred for PT/OT/SN. Plan: DC home with children 24/7 assist, with [facility] PT/OT/SN. No DME [facility]
--- NOTE | 2019-12-11 11:56 | PN_ITS ---
Progress Note Wei was seen on team rounds today. No family was able to participate. Afebrile VSS-blood pressure is adequately controlled. Maintaining appropriate oxygen saturation on RA Oral intake is [] Discussed with nursing - no problems that need addressed Reviewed the PT/OT notes Medication list reviewed. All lab was personally reviewed. INR is therapeutic at 2.6 on the current warfarin regimen of 3 mg 5 days a week and 4.5 mg on Tuesdays and Fridays. The creatinine continues to improve and is 1.47 today, down from 1.95 at admission. This is likely related to Ellison insertion. She tells me that she has no word finding difficulty now and that she feels more alert. She is crocheting a blanket and doing crossword puzzles and anagrams. She wants to go home and DC and not to an SNF. Her children have set up a schedule so that she will have help 05/10. She has a ramp to get into her house at home. She is sleeping well. She denies restless leg. She denies feeling depressed and actually she is quite upbeat and looking forward to going home. Calcium is within normal limits. Hemoglobin is stable and was 8.4 on 12/09/2019. She is very alert. She is appropriate and bright eyed. Mood is upbeat and she is smiling and interacting with staff. She is looking forward to going home Wednesday. MM are moist lungs - CTA HRRR, no gallop no focal neurologic deficits No swelling in the left toes today Denies calf tenderness Impressions 1. debility post ankle fracture on the left with ORIF by 2. encephalopathy due to overmedication 3. drug induced urine retention 4. concentrated urine today and she knows that she does not drink enough fluids......advised to increase fluid intake or we would likely need to use IV fluids DC the Ellison after she returns from Dr. Parker's office She has concentrated urine today and there is some blood. Will check a UA today prior to discontinuing the Ellison Anticipate she will be able to go home Wednesday since family will be with her 05/10 to assist She is sleeping well and has no RLS so will DC the Gabapentin. She does not need any DME for DC...she already has everything she needs i ncluding a Hygiene aid for posterior care. DC gabapentin Continue Cymbalta at 30 mg daily. No seizures observed STROKE Vital Signs/Narrative: Vital Signs Temp Pulse Resp BP Pulse Ox 12/11/19 08:34 97.9 F 63 16 132/64 H 94 12/11/19 08:10 63 Inpatient E&M: 10539 Subs Hosp L2
--- NOTE | 2019-12-11 15:00 | NURSING ---
Pt assisted via slideboard transfer into car for appt. daughter present. All paperwork sent with pt and daughter to appt.
--- NOTE | 2019-12-11 16:20 | NURSING ---
Pt assisted out of car via slideboard transfer into w/c when returned from f/u appt with Dr. Parker. Daughter present.
--- NOTE | 2019-12-11 17:18 | NURSING ---
Ellison catheter removed at this time as per order, intact, pt tolerated well.
[2019-12-11 18:02] LABS: Bacteria 0 SEEN /hpf (None Seen); Mucous, Urine 0 SEEN /hpf (<or=2+)
[2019-12-11 18:08] LABS: Color, Urine Yellow (Yellow); Glucose, Dipstick Normal (Normal); Ketone-Dipstick Negative (Negative); Leukocyte Esterase-Dipstick 500 /ul (Negative); Nitrite-Dipstick Negative (Negative); Occult Blood-Urine 250 /ul (Negative); Protein-Dipstick 100 mg/dl (Negative); Specific Gravity, Urine 1.025 (1.002-1.030); Urine Bilirubin Dipstick Negative (Negative); Urine Clarity Cloudy (Clear); Urine Urobilinogen Normal (Normal)
[2019-12-11 18:14] LABS: White Blood Cells 25-50 SEEN /hpf (0-5)
[2019-12-11 18:15] LABS: Red Blood Cells-Urine > 100 SEEN /hpf (0-5)
[2019-12-11 18:16] LABS: Calcium Oxalate Crystals Ur RARE /hpf (<or=2+); Squamous Epithelial Cells - UA 0-5 SEEN /hpf (5-10); Yeast-Urine 1+ /hpf (None Seen)
[2019-12-11 19:23] VITALS: BP 152/63; PULSE 57; RESP 16; TEMP 36.8; O2SAT 98
[2019-12-11 20:20] VITALS: PULSE 59; RESP 18; O2SAT 96
[2019-12-11] MEDS: Atorvastatin Calcium 40 MG Tablet PO (20:42)
[2019-12-11] MEDS: Nortriptyline 25 MG Capsule PO (20:42)
[2019-12-12] MEDS: Acetaminophen 500 MG Tablet 1000 MG PO ×3 (06:45→19:55)
[2019-12-12] MEDS: Levothyroxine 100 MCG Tablet PO (06:45)
[2019-12-12] MEDS: Aspirin E.C. 81 MG Tablet PO (08:01)
[2019-12-12] MEDS: Famotidine 20 MG Tablet PO (08:02)
[2019-12-12] MEDS: levETIRAcetam 500 MG Tablet PO ×2 (08:02→19:55)
[2019-12-12] MEDS: Doxycycline 100 MG CAPSULE PO ×2 (08:02→19:55)
[2019-12-12] MEDS: Allopurinol 100 MG Tablet PO (08:02)
[2019-12-12] MEDS: Magnesium Chloride 64 MG Delay Rel.Tablet 128 MG PO (08:02)
[2019-12-12] MEDS: DULoxetine Hcl 30 MG Capsule PO (08:02)
[2019-12-12 08:03] VITALS: BP 132/56; PULSE 60
[2019-12-12] MEDS: Pantoprazole Sodium 40 MG Tablet PO (08:03)
[2019-12-12] MEDS: Flecainide 100 MG Tablet PO ×2 (08:03→19:55)
[2019-12-12] MEDS: Metoprolol(XL)Succ 25 MG Tablet PO (08:03)
--- NOTE | 2019-12-12 09:51 | NURSING ---
0830-pt stood up from bed with no walker and stated, well? i got to pull my pants off pt with no understanding of problem in doing so and reports that unable to hop yest when attempted. unwilling to follow orders of nwb status. therapy in to rafal
[2019-12-12 09:54] VITALS: BP 132/56; PULSE 60; RESP 16; TEMP 36.6; O2SAT 97
--- NOTE | 2019-12-12 13:50 | PN_ITS ---
Progress Note Afebrile since admission Vital signs are stable and the blood pressure is well controlled. She is maintaining appropriate oxygen saturation on room air. Oral intake was better yesterday after she was reminded to increase her fluid intake. The Ellison catheter was discontinued yesterday afternoon and she has had 2 post void residuals and they are both less than 50. The UA on 12/11/2019 prior to discontinuing the Ellison catheter had 25-50 WBCs per high-power field and greater than 100 RBCs. There was no bacteria seen and there was only 0-5 squamous epithelial cells. There was yeast present. The urine culture is pending. She was on Augmentin for 7 days to treat aspiration pneumonia and had thrush so the pyuria may be secondary to candiduria. Will await the culture. She denies dysuria. Alert, no apparent distress, very upbeat Lungs-clear to auscultation with no wheezing and no rales Abdomen-soft, nontender, nondistended, no suprapubic pain with palpation Impressions 1. Urine retention-resolved with discontinuation of medications causing urine retention 2. Pyuria-I suspect this may be secondary to Geneva. She is afebrile and asymptomatic so will hold off on antibiotics and await the final culture result. STROKE Vital Signs/Narrative: Vital Signs Temp Pulse Resp BP Pulse Ox 12/12/19 09:54 97.9 F 60 16 132/56 H 97 Inpatient E&M: [id number] [facility] Hosp L1
[2019-12-12 13:54] VITALS: O2SAT 96
[2019-12-12] MEDS: Warfarin 2.5 MG, Warfarin 2 MG 4.5 MG PO (16:51)
[2019-12-12] MEDS: Atorvastatin Calcium 40 MG Tablet PO (19:55)
[2019-12-12] MEDS: Nortriptyline 25 MG Capsule PO (19:55)
[2019-12-12] MEDS: Miconazole-7 Nitrate Cream 1 APPLIC VAGINAL (19:55)
[2019-12-12 20:25] VITALS: BP 126/53; PULSE 50; RESP 18; TEMP 36.4; O2SAT 98
--- NOTE | 2019-12-13 01:23 | NURSING ---
reviewed and agree with charting
[2019-12-13] MEDS: Acetaminophen 500 MG Tablet 1000 MG PO ×3 (05:54→20:12)
[2019-12-13] MEDS: Levothyroxine 100 MCG Tablet PO (05:54)
[2019-12-13 07:15] VITALS: BP 138/81; PULSE 52; RESP 18; TEMP 36.6; O2SAT 96
[2019-12-13] MEDS: Aspirin E.C. 81 MG Tablet PO (07:46)
[2019-12-13] MEDS: DULoxetine Hcl 30 MG Capsule PO (07:46)
[2019-12-13 07:47] VITALS: PULSE 52
[2019-12-13] MEDS: levETIRAcetam 500 MG Tablet PO ×2 (07:47→20:11)
[2019-12-13] MEDS: Doxycycline 100 MG CAPSULE PO ×2 (07:47→20:12)
[2019-12-13] MEDS: Flecainide 100 MG Tablet PO ×2 (07:47→20:11)
[2019-12-13] MEDS: Pantoprazole Sodium 40 MG Tablet PO (07:47)
[2019-12-13] MEDS: Metoprolol(XL)Succ 25 MG Tablet PO (07:47)
[2019-12-13] MEDS: Famotidine 20 MG Tablet PO (07:48)
[2019-12-13] MEDS: Allopurinol 100 MG Tablet PO (07:48)
[2019-12-13] MEDS: Magnesium Chloride 64 MG Delay Rel.Tablet 128 MG PO (07:48)
[2019-12-13 09:12] VITALS: PULSE 52; RESP 18; O2SAT 96
[2019-12-13 12:38] VITALS: O2SAT 99
[2019-12-13 20:10] VITALS: BP 158/69; PULSE 50; RESP 18; TEMP 36.8; O2SAT 98
[2019-12-13] MEDS: Nortriptyline 25 MG Capsule PO (20:11)
[2019-12-13] MEDS: Atorvastatin Calcium 40 MG Tablet PO (20:11)
[2019-12-13] MEDS: Miconazole-7 Nitrate Cream 1 APPLIC VAGINAL (20:12)
--- NOTE | 2019-12-14 02:59 | NURSING ---
REVIEWED AND AGREE WITH LAND CHECKER'S FUNCTIONAL ASSESSMENT AND HANDOFF CHARTING.
[2019-12-14 05:41] LABS: International Normalized Ratio 2.6; Prothrombin Time (Protime)PT. 27.3 SECONDS (11.7-14.9)
[2019-12-14] MEDS: Levothyroxine 100 MCG Tablet PO (06:17)
[2019-12-14] MEDS: Acetaminophen 500 MG Tablet 1000 MG PO ×3 (06:17→21:16)
[2019-12-14] MEDS: Aspirin E.C. 81 MG Tablet PO (08:02)
[2019-12-14] MEDS: levETIRAcetam 500 MG Tablet PO ×2 (08:03→21:24)
[2019-12-14] MEDS: Allopurinol 100 MG Tablet PO (08:03)
[2019-12-14] MEDS: Famotidine 20 MG Tablet PO (08:03)
[2019-12-14] MEDS: DULoxetine Hcl 30 MG Capsule PO (08:03)
[2019-12-14] MEDS: Pantoprazole Sodium 40 MG Tablet PO (08:03)
[2019-12-14] MEDS: Doxycycline 100 MG CAPSULE PO ×2 (08:03→21:16)
[2019-12-14] MEDS: Magnesium Chloride 64 MG Delay Rel.Tablet 128 MG PO (08:03)
[2019-12-14 08:04] VITALS: PULSE 61
[2019-12-14] MEDS: Metoprolol(XL)Succ 25 MG Tablet PO (08:04)
[2019-12-14] MEDS: Flecainide 100 MG Tablet PO ×2 (08:04→21:16)
[2019-12-14 08:33] VITALS: BP 128/68; PULSE 61; RESP 17; TEMP 36.5; O2SAT 97
--- NOTE | 2019-12-14 13:54 | PN_ITS ---
Progress Note Afebrile VSS-blood pressure is controlled. The pulse is consistently in the 50s and low 60 range. She denies dizziness/lightheadedness. Maintaining appropriate oxygen saturation on RA Oral intake is improved however she must be continually reminded to increase her fluid intake. She tells me that she does not like to drink fluids. Good bowel function She is sleeping well off Trazodone and Gabapentin. She is currently on Pamelor 25 at and there are plans to continue to taper Discussed with nursing - she went to the by herself today and nursing was watching and she attempted to turn suddenly without the walker and get on the toilet and she lost her balance. Safety awareness is still not where it should be but, we are continuing to taper the SPORTS TEAM MANAGER depressant meds. She tells me that her children will make sure that someone is with her 05/10 at home. Reviewed the PT/OT/ST notes Medication list reviewed. INR today is stable at 2.6 on current warfarin dosage. Urine culture has grown Geneva albicans and the dysuria she had when the urine hit the labia is better since the Monistat 7 vaginal cream was started on 12/11. Denies flank pain or nausea Alert, pleasant, good mood, looking forward to going home tomorrow. Lungs -CTA HRRR, no gallop abd - soft and NT with good BS's throughout no calf pain No rashes or skin breakdown no focal neurologic deficits Impressions 1. Geneva vaginitis-dysuria is improving with treatment for vaginitis. Urine culture grew Geneva albicans only. 2. Poor safety awareness 3. Encephalopathy-suspect secondary to medication. This has improved significantly since admission. SPORTS TEAM MANAGER depressants have been discontinued and the ones that remain are being tapered. 4. Urine retention-this was secondary to medication and has resolved with discontinuation of some of the medications leading to urine retention and tapering of the others. Will not need to go home with a Ellison 5. She is not safe to be by herself at home. D/W the SW and she is going to have a conversation with her dtr to explain that. I hope her cognition and safety awareness continues to improve with further tapering of some of the medications 6. seizure disorder - no seizures observed since she was admitted to the rehab unit Plan DC tomorrow LINDA, Jem and LILLIAN in the AM Inpatient E&M: [id number] Subs Hosp L2
--- NOTE | 2019-12-14 16:59 | PCM.DC ---
- Discharge Diagnoses Current Active Problems: Current Active and Chronic Problems History of aortic valve replacement (Chronic) Hyperuricemia (Chronic) History of gout (Chronic) Morbid obesity (Chronic) Stage 3 chronic kidney disease (Chronic) Chronic anticoagulation (Acute) History of open reduction and internal fixation (ORIF) procedure (Acute) Physical debility (Acute) Seizure disorder (Chronic) diagnosed in 2019 CAD (coronary artery disease) (Chronic) History of thoracic aortic aneurysm repair (Chronic) You will use the following diet at home:: Calorie/Carbohydrate Controlled (specify 1200, 1400, etc) - 1800 calorie diet, low salt and low fat. Encourage good fluid intake., Other - vitamin K restricted. You MUST drink more fluids to keep the kidney from failing. Your food should be the consistency of: Regular Your liquids should be the consistency of: Regular/Thin Discharge Activity: May Not Drive, May Shower, Use Walker, - - Do the exercises given to you by the therapists twice a day. Ice area for (Minutes): 15 Weight Bearing Status: No weight bearing - on the left leg Keep extremity elevated above heart level: Left Leg Call your doctor if your incision/area has: Increased Pain/ Swelling, - - red toes, numbness in the toes of the left foot, increased swelling of the left foot Call your doctor if you observe: Fever of 101 or Higher, Numbness or Tingling, Inability to urinate, Inability to have a bowel movement, Shortness of breath, Dizziness, Fainting spells, Chest pain, Increased palpitations (irregular heartbeat), Uncontrolled pain Instructions: Eating to Prevent Gout, MyPlate Worksheet: 1,800 Calories Additional Instructions: 1. You were confused and very sleepy when you arrived in rehab. You were also having trouble swallowing. I think a lot of this was due to too many medications that suppress the central nervous system (your brain). We discontinued a few drugs and tapered the dose of some others. You are much more alert and able to follow instructions. You are sleeping well at night. Some of the medications that were discontinued and/or tapered also cause urine retention. This is why you had to have a catheter for part of your time on rehab. When we took the catheter out you were no longer retaining urine and will not need to go home with a Ellison catheter. 2. I think another thing that may be contributing to some confusion and fatigue is sleep apnea. I am recommending that you have a sleep study following DC from rehab. Dr. Ricci can arrange this for you. I have given you some literature on sleep apnea and how it affects brain function. 3. I am very glad your children have been able to arrange a schedule to assist you so that you can go home and not to a senior living until the bone heals. You still need someone to be with you in the bathroom miesha since you do not always remember not to not bear weight on the left leg and putting pressure on that leg can delay healing. You always sometimes forget that you need the walker and turn around quickly....this can lead to a fall. 4. Your INR on the day of discharge is stable at 2.6 which is right wear we want it. 5. You have a yeast infection in the vagina and this is what was causing the burning with urination. Make sure to finish the vaginal cream so that it completely goes away. 6. You must drink more fluids. You have kidney disease. There are 5 stages of Kidney failure and you are in stage 3......when it gets to stage 5 you will need dialysis. You must drink at least 1200 cc (40 ounces) a day to help the kidney out and prevent further decline in kidney function. 7. It has been a pleasure watching you wake up and be able to think again. You have worked hard and have done very well. If you have any questions after you go home feel free to call me at [phone] (office) or [phone] (cell) You could also call the rehab unit at [phone] Take care of yourself! Pending Tests on Discharge: none Allergies/Adverse Reactions: Allergies celecoxib [From Celebrex] Allergy (Severe, Verified 11/30/19 09:08) rash, swelling, difficulty breathing Sulfa (Sulfonamide Antibiotics) Allergy (Severe, Verified 11/30/19 09:08) rash, swelling, difficulty breathing Medications to take at Discharge allopurinol 100 mg tablet 100 mg PO DAILY #90 tab 02/22/19 levothyroxine 100 mcg tablet 100 mcg PO DAILY #90 tab 02/22/19 metoprolol succinate 25 mg tablet,extended release 24 hr 25 mg PO DAILY #90 tab 12/11/19 omeprazole 40 mg capsule,delayed release 40 mg PO DAILY #90 cap 02/22/19 rosuvastatin 20 mg tablet 20 mg PO QHS #90 tab 02/22/19 Aspirin [Adult Aspirin Regimen] 81 mg PO DAILY 11/27/19 Cholecalciferol (Vitamin D3) [Vitamin D3] 5,000 unit PO DAILY 11/27/19 Flecainide [Tambocor] 100 mg PO BID 11/27/19 Levetiracetam [Keppra] 500 mg PO BID 11/27/19 Magnesium Oxide [Magnesium] 400 mg PO DAILY 11/27/19 Nitroglycerin 0.4 mg SL PRN PRN 11/27/19 Potassium Chloride 10 meq PO DAILY 11/27/19 Acetaminophen [Tylenol] 1,000 mg PO Q8 PRN #1 tab 12/14/19 Duloxetine Hcl [Cymbalta] 30 mg PO DAILY #30 cap 12/14/19 Famotidine [Pepcid] 20 mg PO DAILY tab 12/14/19 Miconazole Nitrate [Monistat 7] 1 applic VAGINAL QHS tube 12/14/19 Nortriptyline HCl [Pamelor] 10 mg PO QHS #30 cap 12/14/19 Warfarin [Coumadin] 3 mg PO SuMoWeThSa@1700 #40 tab 12/14/19 Doxycycline 100 mg PO BID #14 cap 12/15/19 The following prescriptions were given: Warfarin [Coumadin] 3 mg PO SuMoWeThSa@1700 #40 tab Transmission Status: Received by [address] Duloxetine Hcl [Cymbalta] 30 mg PO DAILY #30 cap Transmission Status: Received by [address] Doxycycline 100 mg PO BID #14 cap Transmission Status: Pending to [address] Nortriptyline HCl [Pamelor] 10 mg PO QHS #30 cap Transmission Status: Received by [address] Primary Care Physician: Kishore Ricci MD [Primary Care Provider] - Please follow up with your Primary Care Physician in: 7-10 days Test Results: Test results from this visit will be discussed in further detail at your follow-up appointment, if applicable. Please Follow Up With: Dr. Lion Parker Please Follow Up With: Dr. Kishore Ricci Proposed Discharge Date: 12/15/19
[2019-12-14] MEDS: Atorvastatin Calcium 40 MG Tablet PO (21:15)
[2019-12-14] MEDS: Nortriptyline 25 MG Capsule PO (21:16)
[2019-12-14] MEDS: Miconazole-7 Nitrate Cream 1 APPLIC VAGINAL (21:17)
[2019-12-14 22:00] VITALS: BP 130/84; PULSE 51; RESP 17; TEMP 36.6
[2019-12-15] MEDS: Acetaminophen 500 MG Tablet 1000 MG PO (05:06)
[2019-12-15] MEDS: Levothyroxine 100 MCG Tablet PO (05:06)
[2019-12-15 05:23] LABS: Hematocrit 30.9 % (37-47); Hemoglobin 9.3 g/dL (12.0-15.0)
[2019-12-15 05:40] LABS: Anion Gap 5 (5-15); BUN 41 mg/dL (7-18); BUN/Creat Ratio 25.9 RATIO (10-20); Calcium,Total 9.2 mg/dL (8.5-10.1); Chloride 113 mmol/L (98-107); Creatinine, Serum 1.58 mg/dL (0.55-1.02); EST Glomerular Filtration Rate 34 mL/min (>60); Est Glom Filt Rate - Afr Amer 41 mL/min (>60); Estimated Creatinine Clearance 26.16 ml/min; Glucose 85 mg/dL (74-106); Potassium 3.9 mmol/L (3.5-5.1); Sodium Level 142 mmol/L (136-145)
--- NOTE | 2019-12-15 06:15 | NURSING ---
STAFF INFORMS THIS NURSE THAT PT IS BEING UNCOOPERATIVE WITH THEM AND TRANSFERRING SELF AND NOT LETTING THEM ASSIST HER GETTING PACKED AND DRESSED AND TRANSFERRED FROM BED TO CHAIR. PT YELLS AT STAFF AND DOES NOT HEED THEIR CONCERNS FOR HER AND SAFETY AND MAINTAINING HER NWB LLE STATUS. THIS NURSE ASSISTS PT WITH PACKING OF HER BELONGINGS AND PT REFUSESTO SIT IN RECLINER INSTEAD OF W/C THAT SHE HAD SELF TRANSFERRED INTO. PT APPEARS IRRITATED. PT INFORMED THAT SHE IS NOT TO BEAR WEIGHT ON HER LLE AND PT REPLIES THAT HER CAST COMES OFF WEDNESDAY ANYWAY. PT AWARE THAT SHE WILL HAVE THEN A BOOT APPLIED WHEN CAST REMOVED THAT WILL HAVE TO BE WORN. DISCHARGE PROCESS EXPLAINED TO PT AND PT AWARE. PT DOES NOT WANT TO BE MOVED TO MAIN DINING AREA IN W/C, BUT EVENTUALLY AGREES TO TRANSFER TO RECLINER. W/C REMOVED FROM PT'S ROOM. PT DAUGHTER IS NOTIFIED BY STAFF VIA PHONE OF PT'S NON COMPLIANCE WITH SAFETY STANDARDS OF UNIT AND ENCOURAGED TO TALK TO PT. DAUGHTER'S CALL IS TRANSFERRED TO PT'S ROOM AND PT TALKS WITH DAUGHTER.
[2019-12-15 07:36] VITALS: BP 159/67; PULSE 61; RESP 16; TEMP 36.5; O2SAT 95
[2019-12-15] MEDS: Aspirin E.C. 81 MG Tablet PO (08:37)
[2019-12-15] MEDS: DULoxetine Hcl 30 MG Capsule PO (08:38)
[2019-12-15] MEDS: Doxycycline 100 MG CAPSULE PO (08:38)
[2019-12-15] MEDS: Allopurinol 100 MG Tablet PO (08:38)
[2019-12-15] MEDS: levETIRAcetam 500 MG Tablet PO (08:38)
[2019-12-15 08:39] VITALS: PULSE 68
[2019-12-15] MEDS: Flecainide 100 MG Tablet PO (08:39)
[2019-12-15] MEDS: Pantoprazole Sodium 40 MG Tablet PO (08:39)
[2019-12-15] MEDS: Magnesium Chloride 64 MG Delay Rel.Tablet 128 MG PO (08:39)
[2019-12-15] MEDS: Metoprolol(XL)Succ 25 MG Tablet PO (08:39)
[2019-12-15] MEDS: Famotidine 20 MG Tablet PO (08:39)
--- NOTE | 2019-12-15 09:48 | PCM.DC.SUM ---
Discharge Date and Diagnosis Date of Admission: 12/01/19 Date of Discharge: 12/15/19 - Primary Discharge Diagnosis Acute Problems: Active Problems (Last Reviewed 12/01/19 @ 23:[address] Haylee Solano DO) History of open reduction and internal fixation (ORIF) procedure (Acute) Physical debility (Acute) Aspiration pneumonia Urine retention-resolved Geneva vaginitis (Acute) Sleep-disordered breathing (Acute) Encephalopathy (Acute) Dehydration due to poor oral intake Subtherapeutic INR Constipation Hypercalcemia secondary to intravascular volume depletion Hemoccult positive stool Suspected Problems: Suspected Problems (Last Reviewed 12/01/19 @ 23:[address] Haylee Solano DO) ELIDA (obstructive sleep apnea) (Suspected) STOP BANG score is 6 putting her at high risk for sleep apnea Dementia - Secondary Discharge Diagnosis Chronic Problems: Chronic Problems Esophageal reflux (Chronic) History of venous thrombosis and embolism (Chronic) Hyperlipidemia (Chronic) HTN (hypertension) (Chronic) Hypothyroidism (Chronic) Spinal stenosis (Chronic) History of aortic valve replacement (Chronic) History of thoracic aortic aneurysm repair (Chronic) Hyperuricemia (Chronic) History of gout (Chronic) Morbid obesity (Chronic) Stage 3 chronic kidney disease (Chronic) Chronic anticoagulation (Chronic) with warfarin Seizure disorder (Chronic) diagnosed in 2019 CAD (coronary artery disease) (Chronic) Hospital Course and Treatment Imaging Results: Clinical Impression(s) from Imaging Studies Chest X-Ray 12/01/19 21:04 IMPRESSION: No active disease. Electronically Signed: Umesh Barrera MD at 7:46 EDT Tel , Service support , Renal Ultrasound 12/04/19 14:11 IMPRESSION: Increased renal echogenicity suggestive of medical renal disease. No hydronephrosis. Bladder decompressed by Ellison catheter, limiting evaluation. Electronically Signed: Taiwo Gilbert MD at 2:47 EDT , Service support , Laboratory Last Values WBC 6.4 K/mm3 (4.4-11.0) 12/06/19 05:30 RBC 2.78 M/mm3 (4.2-5.4) L 12/06/19 05:30 Hgb 9.3 g/dL (12.0-15.0) L 12/15/19 05:03 Hct 30.9 % (37-47) L 12/15/19 05:03 MCV 96.4 fL (81-99) 12/06/19 05:30 MCH 28.8 pg (27.0-32.0) 12/06/19 05:30 MCHC 29.9 g/dL (32-36) L 12/06/19 05:30 RDW Std Deviation 50.4 fl (35.1-43.9) H 12/06/19 05:30 RDW Coeff of Pravin 14.2 % (11.6-14.6) 12/06/19 05:30 Plt Count 260 K/mm3 (150-450) 12/06/19 05:30 MPV 9.1 fl (6.2-12.0) 12/06/19 05:30 Immature Gran % (Auto) 0.500 % (0.0-0.9) 12/06/19 05:30 Neut % (Auto) 75.0 % (47-70) H 12/06/19 05:30 Lymph % (Auto) 11.3 % (19-41) L 12/06/19 05:30 [place] % (Auto) 6.8 % (0-10) 12/06/19 05:30 Eos % (Auto) 6.1 % (0-5) H 12/06/19 05:30 Baso % (Auto) 0.3 % (0-1) 12/06/19 05:30 Absolute Neuts (auto) 4.8 X10^3/uL (2.0-7.7) 12/06/19 05:30 Absolute Lymphs (auto) 0.72 X10^3/uL (0.83-4.51) L 12/06/19 05:30 Nucleated RBC % 0 % (0-5) 12/06/19 05:30 PT 27.3 SECONDS (11.7-14.9) H 12/14/19 05:23 INR 2.6 12/14/19 05:23 Sodium 142 mmol/L (136-145) 12/15/19 05:03 Potassium 3.9 mmol/L (3.5-5.1) 12/15/19 05:03 Chloride 113 mmol/L (98-107) H 12/15/19 05:03 Carbon Dioxide 24.0 mmol/L (21.0-32.0) 12/15/19 05:03 Anion Gap 5 (5-15) 12/15/19 05:03 BUN 41 mg/dL (7-18) H 12/15/19 05:03 Creatinine 1.58 mg/dL (0.55-1.02) H 12/15/19 05:03 Estim Creat Clear Calc 26.16 ml/min 12/15/19 05:03 Est GFR (MDRD) Af Amer 41 mL/min (>60) L 12/15/19 05:03 Est GFR (MDRD) Non-Af 34 mL/min (>60) L 12/15/19 05:03 BUN/Creatinine Ratio 25.9 RATIO (10-20) H 12/15/19 05:03 Glucose 85 mg/dL (74-106) 12/15/19 05:03 Uric Acid 7.3 mg/dL (2.6-6.0) H 12/02/19 06:46 Calcium 9.2 mg/dL (8.5-10.1) 12/15/19 05:03 Phosphorus 4.4 mg/dL (2.5-4.9) 12/04/19 14:38 Magnesium 2.0 mg/dL (1.6-2.6) 12/04/19 14:38 Total Bilirubin 0.50 mg/dL (0.20-1.00) 12/02/19 06:46 AST 15 U/L (15-37) 12/02/19 06:46 ALT 10 U/L (13-56) L 12/02/19 06:46 Alkaline Phosphatase 82 U/L (45-117) 12/02/19 06:46 B-Natriuretic Peptide 253.7 pg/mL (0-100) H 12/02/19 06:46 Total Protein 6.5 g/dL (6.4-8.2) 12/02/19 06:46 Albumin 2.6 g/dL (3.2-5.0) L 12/04/19 14:38 Globulin 3.9 g/dL (2.2-4.2) 12/02/19 06:46 Albumin/Globulin Ratio 0.7 RATIO (0.9-2.4) L 12/02/19 06:46 Vitamin D 25-Hydroxy 65.8 ng/mL 12/04/19 14:38 Urine Color Yellow (Yellow) 12/11/19 17:14 Urine Clarity Cloudy (Clear) 12/11/19 17:14 Urine pH 5.0 (5.0 - 8.0) 12/11/19 17:14 Ur Specific [place] 1.025 (1.002-1.030) 12/11/19 17:14 Urine Protein 100 mg/dl (Negative) H 12/11/19 17:14 Urine Glucose (UA) Normal mg/dl (Normal) 12/11/19 17:14 Urine Ketones Negative mg/dl (Negative) 12/11/19 17:14 Urine Occult Blood 250 /ul (Negative) H 12/11/19 17:14 Urine Nitrite Negative (Negative) 12/11/19 17:14 Urine Bilirubin Negative mg/dL (Negative) 12/11/19 17:14 Urine Urobilinogen Normal mg/dl (Normal) 12/11/19 17:14 Ur Leukocyte Esterase 500 /ul (Negative) H 12/11/19 17:14 Urine RBC > 100 SEEN /hpf (0-5) 12/11/19 17:14 Urine WBC 25-50 SEEN /hpf (0-5) 12/11/19 17:14 Ur Squamous Epith Cells 0-5 SEEN /hpf (5-10) 12/11/19 17:14 Calcium Oxalate Crystal RARE /hpf (<or=2+) 12/11/19 17:14 Amorphous Sediment 1+ 12/02/19 09:58 Urine Bacteria 0 SEEN /hpf (None Seen) 12/11/19 17:14 Urine Mucus 0 SEEN /hpf (<or=2+) 12/11/19 17:14 Urine Yeast 1+ /hpf (None Seen) 12/11/19 17:14 Flecainide 1.02 ug/mL (0.20-1.00) H 12/04/19 14:38 MRSA (PCR) Negative (Negative) 12/02/19 05:25 Microbiology 12/11/19 17:14 Urine Catheter - Ellison Urine Culture - Final Geneva albicans 12/03/19 12:00 Sputum, Expectorated/Coughed Gram Stain - Final 12/03/19 12:00 Sputum, Expectorated/Coughed Respiratory Culture - Final Yeast, not [place] albicans 12/05/19 03:00 Stool Stool Occult Blood (AGNIESZKA) - Final Occult Blood Positive 12/02/19 09:50 Urine, Catheterized Urine Culture - Final Culture exhibits no growth. none Operations: - - Left ankle bimalleolar fracture open reduction with internal fixation Procedures: - - Ellison catheter insertrion for urine retention Summary of Care Provided: The patient is a 74 year old F with a past medical history of coronary artery disease, hypertension, hyperlipidemia, hypothyroidism, GERD, morbid obesity, history of aortic valve replacement and thoracic aortic aneurysm repair, hyperuricemia, gout and recently diagnosed seizure disorder who was getting out of her car in the garage and lost consciousness on 11/27/19. When she came around he had been incontinent of urine and her Left foot and ankle were trapped under the seat. She can not completely recall the events surrounding falling out of the car and she tells me that she thinks she had a seizure. Xrays in the ER showed a closed displaced bimalleolar fracture of the Left ankle. She initially decided to treat conservatively however she later decided to have surgical intervention and she underwent ORIF of the left ankle on 11/30/[address] Tank Parker. She was transferred to the inpatient rehab unit at [facility] on 12/01/2019 for greater than 3 hours of therapy daily to restore function at or near her level of function prior to the fracture. She is to be non-weight bearing on the LLE. She lives by herself. Del was taking multiple medications that cause TAKER [employer]ILN depression and she was always sleepy and she was also confused. She was found to have urine retnetion and a Ellison was inserted. She was taking a few different medications that are known to cause urine retention. Trazodone was discontinued and nortriptyline was decreased to 50 mg nightly for 1 week and then further decreased to 25 mg nightly for 1 week. Gabapentin dose at at bedtime was decreased and eventually discontinued. She continued to sleep well. At presentation to the unit she had SOB with exertion and was wheezing and coughing. She was treated with aerosols and Augmentin was started for suspected aspiration pneumonia. The radiologist read a CXR as normal but, per my review she had infiltrate in the R base which was not present when compared to a CXR done a few years ago. She received 7 days of Augmentin and the cough and the SOB resolved. She had better air exchange on physical exam and the lungs were CTA prior to DC. Her STOP BANG score was 6 and an overnight trending pulse ox was abnormal. This may be contributing to decreased cognitive abilities and I recommended to her that she discuss an OP sleep study with Dr. Ricci. With adjustments in medication Wei became alert and appropriate. Prior to discharge she was able to ambulate 10 feet with a wheeled walker at contact-guard assist/min assist. She was contact-guard assist to stand from the bed and to pivot. She was able to propel the wheelchair without assistance. She required moderate assistance for bathing and lower body dressing. She needed minimal assistance with upper body dressing. She still required moderate assistance for toileting and max assist with showering. Wei initially was agreeable to being transferred to custodial following discharge from rehab however she later changed her mind and decided she was going home. 1 of her daughters who lives in [place] will be coming to live with her and provide 24/ coverage for the next 2 weeks. Wei is impulsive and she gets up and ambulates with the WW and no assist. She does not always maintain NWB on the LLE. She was observed in the BR by herself and lost her balance trying to turn to get on the toilet. I discussed this with her dtr Fátima and recommended she not be in the BR by herself. Wei was discharged home on 12/15/19. She had no DME needs at DC but, I recommended to Fátima that they purchase a gait belt and use it anytime Wei is standing. At the time of DC the Pamelor was decreased to 10 mg Q HS. Her mood was upbeat and she was very alert. She was able to participate in conversation with no trouble word finding. She was also more active and was knitting and doing cross word puzzles when not in therapy. She will follow up with Dr. Lion Parker and Dr. Kishore Ricci post DC. She also has an appt, arranged by Dr. Jerez, to have neurocognitive testing. Wei had no witnessed seizures while in rehab. At the time of DC she was taking only Tylenol for pain and had not taken any narcotics since 12/06. Alert, pleasant, good mood, looking forward to going home, denies feeling depressed, she is sleeping well Lungs -CTA with good air exchange HRRR, no gallop, no MM abd - obese, soft and NT with good BS's throughout no calf pain No rashes or skin breakdown minimal swelling of the toes on the left foot and the toes are warm with intact sensation no focal neurologic deficits This note was generated with [employer] dictation software. It may contain incorrect words, spelling, and punctuation that were not noted in checking the note before signing. - Physical Exam Vitals/I&O's: Vital Signs Temp Pulse Resp BP Pulse Ox 97.7 F L 68 16 159/67 H 95 12/15/19 07:36 12/15/19 08:39 12/15/19 07:36 12/15/19 07:36 12/15/19 07:36 Oxygen Flow Rate (L/min) 2 Oxygen Delivery Method Room Air Weight: 260 lb Body Mass Index (BMI) 45.1 Intake and Output for Last 24 Hours 12/13/19 12/14/19 12/15/19 23:59 23:59 23:59 Intake Total 1160 / 1160 1240 / 1540 740 / 740 Output Total 775 / 1075 1050 / 1400 1050 / 1050 Balance 385 / 85 190 / 140 -310 / -310 Microbiology Past 72 Hours 12/11/19 17:14 Urine Catheter - Ellison Urine Culture - Final [place] albicans Laboratory Results 12/15/19 05:03: Hgb 9.3 L, Hct 30.9 L 12/15/19 05:03: Sodium 142, Potassium 3.9, Chloride 113 H, Carbon Dioxide 24.0, Anion Gap 5, BUN 41 H, Creatinine 1.58 H, Estim Creat Clear Calc 26.16, Est GFR (MDRD) Af Amer 41 L, Est GFR (MDRD) Non-Af 34 L, BUN/Creatinine Ratio 25.9 H, Glucose 85, Calcium 9.2 Current Medications Acetaminophen (Tylenol) 1,000 mg PO Q8 PABLITO Last Admin: 12/15/19 05:06 Dose: 1,000 mg Documented by: Albuterol Sulfate (Ventolin Aerosols) 2.5 mg INHALATION Q2H PRN PRN PRN Reason: WHEEZING Last Admin: 12/06/19 18:40 Dose: 2.5 mg Documented by: Allopurinol (Zyloprim) 100 mg PO DAILY@0800 [facility] Last Admin: 12/15/19 08:38 Dose: 100 mg Documented by: Aspirin (Ecotrin) 81 mg PO DAILY@0800 [facility] Last Admin: 12/15/19 08:37 Dose: 81 mg Documented by: Atorvastatin Calcium (Lipitor) 40 mg PO QHS [facility] Last Admin: 12/14/19 21:15 Dose: 40 mg Documented by: Bisacodyl (Dulcolax) 10 mg RECTAL .PRN X 1 PRN PRN Reason: Constipation Last Admin: 12/03/19 08:45 Dose: 10 mg Documented by: Cholecalciferol (Vitamin D (25mcg)) 1,000 unit PO DAILY [facility] Last Admin: 12/15/19 08:39 Dose: 1,000 unit Documented by: Docusate Sodium (Colace) 100 mg PO BID PRN PRN PRN Reason: CONSTIPATION Last Admin: 12/03/19 17:40 Dose: 100 mg Documented by: Doxycycline Monohydrate (Doxycycline) 100 mg PO BID [facility] Stop: 12/22/19 10:00 Last Admin: 12/15/19 08:38 Dose: 100 mg Documented by: Duloxetine HCl (Cymbalta) 30 mg PO DAILY [facility] Last Admin: 12/15/19 08:38 Dose: 30 mg Documented by: Famotidine (Pepcid) 20 mg PO DAILY [facility] Last Admin: 12/15/19 08:39 Dose: 20 mg Documented by: Flecainide Acetate (Tambocor) 100 mg PO BID [facility] Last Admin: 12/15/19 08:39 Dose: 100 mg Documented by: Levetiracetam (Keppra Tablet) 500 mg PO BID [facility] Last Admin: 12/15/19 08:38 Dose: 500 mg Documented by: Levothyroxine Sodium (Synthroid) 100 mcg PO DAILY@0600 [facility] Last Admin: 12/15/19 05:06 Dose: 100 mcg Documented by: Magnesium Chloride (Mag64) 128 mg PO DAILY [facility] Last Admin: 12/15/19 08:39 Dose: 128 mg Documented by: Magnesium Hydroxide (Milk Of Magnesia) 30 ml PO .PRN X 1 PRN PRN Reason: Constipation Last Admin: 12/02/19 20:58 Dose: 30 ml Documented by: Metoprolol Succinate (Toprol Xl (Beta Mani)) 25 mg PO DAILY [facility] Last Admin: 12/15/19 08:39 Dose: 25 mg Documented by: Miconazole Nitrate (Monistat 7) 1 applic VAGINAL QHS [facility] Last Admin: 12/14/19 21:17 Dose: 1 applicatio Documented by: Nitroglycerin (Nitrostat) 0.4 mg SUBLINGUAL Q5M PRN PRN Reason: CARDIAC/CHEST PAIN Nortriptyline HCl (Pamelor) 25 mg PO QHS [facility] Stop: 12/17/19 22:01 Last Admin: 12/14/19 21:16 Dose: 25 mg Documented by: Nortriptyline HCl (Pamelor) 10 mg PO QHS [facility] Stop: 12/24/19 22:01 Ondansetron HCl (Zofran) 8 mg PO Q8H PRN PRN PRN Reason: NAUSEA/VOMITING Oxycodone HCl (Oxyir) 5 - 10 mg PO Q4H PRN PRN PRN Reason: Pain Score 6-10/10 Last Admin: 12/04/19 08:39 Dose: 5 mg Documented by: Pantoprazole Sodium (Protonix) 40 mg PO DAILY [facility] Last Admin: 12/15/19 08:39 Dose: 40 mg Documented by: Potassium Chloride (K-Dur) 10 meq PO DAILY@0800 [facility] Last Admin: 12/15/19 08:38 Dose: 10 meq Documented by: Sodium Chloride () 10 - 40 ml IV UD PRN PRN Reason: SALINE FLUSH Last Admin: 12/02/19 20:58 Dose: 10 ml Documented by: Warfarin Sodium (Jantoven) 3 mg PO SuMoWeThSa@1700 [facility] Last Admin: 12/14/19 17:08 Dose: 3 mg Documented by: Warfarin Sodium 2.5 mg/ (Warfarin Sodium 2 mg) 4.5 mg PO TuFr@1700 [facility] Last Admin: 12/12/19 16:51 Dose: 4.5 mg Documented by: Discharge Activity: May Not Drive, May Shower, Use Walker, - - Do the exercises given to you by the therapists twice a day. Ice area for (Minutes): 15 Weight Bearing Status: No weight bearing - on the left leg Keep extremity elevated above heart level: Left Leg Call your doctor if your incision/area has: Increased Pain/ Swelling, - - red toes, numbness in the toes of the left foot, increased swelling of the left foot Call your doctor if you observe: Fever of 101 or Higher, Numbness or Tingling, Inability to urinate, Inability to have a bowel movement, Shortness of breath, Dizziness, Fainting spells, Chest pain, Increased palpitations (irregular heartbeat), Uncontrolled pain Home Medications: Medications to take at Discharge allopurinol 100 mg tablet 100 mg PO DAILY #90 tab 02/22/19 levothyroxine 100 mcg tablet 100 mcg PO DAILY #90 tab 02/22/19 metoprolol succinate 25 mg tablet,extended release 24 hr 25 mg PO DAILY #90 tab 02/22/19 omeprazole 40 mg capsule,delayed release 40 mg PO DAILY #90 cap 02/22/19 rosuvastatin 20 mg tablet 20 mg PO QHS #90 tab 02/22/19 Aspirin [Adult Aspirin Regimen] 81 mg PO DAILY 11/27/19 Cholecalciferol (Vitamin D3) [Vitamin D3] 5,000 unit PO DAILY 11/27/19 Flecainide [Tambocor] 100 mg PO BID 11/27/19 Levetiracetam [Keppra] 500 mg PO BID 11/27/19 Magnesium Oxide [Magnesium] 400 mg PO DAILY 11/27/19 Nitroglycerin 0.4 mg SL PRN PRN 11/27/19 Potassium Chloride 10 meq PO DAILY 11/27/19 Acetaminophen [Tylenol] 1,000 mg PO Q8 PRN #1 tab 12/14/19 Duloxetine Hcl [Cymbalta] 30 mg PO DAILY #30 cap 12/14/19 Famotidine [Pepcid] 20 mg PO DAILY tab 12/14/19 Miconazole Nitrate [Monistat 7] 1 applic VAGINAL QHS tube 12/14/19 Nortriptyline HCl [Pamelor] 10 mg PO QHS #30 cap 12/14/19 Warfarin [Coumadin] 3 mg PO SuMoWeThSa@1700 #40 tab 12/14/19 Doxycycline 100 mg PO BID #14 cap 12/15/19 Following Prescriptions Were Given to Patient: Warfarin [Coumadin] 3 mg PO SuMoWeThSa@1700 #40 tab Transmission Status: Received by [facility] Duloxetine Hcl [Cymbalta] 30 mg PO DAILY #30 cap Transmission Status: Received by [address] Doxycycline 100 mg PO BID #14 cap Transmission Status: Received by [address] Nortriptyline HCl [Pamelor] 10 mg PO QHS #30 cap Transmission Status: Received by [address] Primary Care Physician: Kishore Ricci MD [Primary Care Provider] - Please follow up with your Primary Care Physician in: 7-10 days Please Follow Up With: Dr. Lion Parker Please Follow Up With: Dr. Kishore Ricci When: Wednesday Patient Instructions: Eating to Prevent Gout, MyPlate Worksheet: 1,800 Calories Minutes spent on discharge:: 45 Patient Condition:: Good Medical Necessity - Tobacco Use Smoking Status: Never smoker Tobacco Use: Non-smoker Meaningful Use Info Meaningful Use Diagnoses (Choose all that apply): None applicable Inpatient E&M: 78874 [facility]
[2019-12-15 11:30] VITALS: BP 159/67; PULSE 61; RESP 16; TEMP 36.5; O2SAT 95
--- NOTE | 2019-12-15 12:53 | NURSING ---
Addendum entered by Sarah Cotto 12/15/19 14:33: Correction: time of this note should be 11:30 am. Original Note: Patient discharged at this time. Daughter present and aware of discharge instructions.
== END 2019-12-15 11:30 | disposition home health service (06) | DRG 559 ==
PROVIDERS: Admitting Provider Internal Medicine; PCP Family Medicine; Visit Provider Internal Medicine
DX: S82.842D Displaced bimalleolar fracture of left lower leg, subsequent encounter for closed fracture with routine healing (principal); J69.0 Pneumonitis due to inhalation of food and vomit; G92 Toxic encephalopathy; Z68.42 Body mass index [BMI] 45.0-49.9, adult; V43.4 Person boarding or alighting a car injured in collision with car, pick-up truck or van; E03.9 Hypothyroidism, unspecified; E78.5 Hyperlipidemia, unspecified; K21.9 Gastro-esophageal reflux disease without esophagitis; N18.30 Chronic kidney disease, stage 3 unspecified; I12.9 Hypertensive chronic kidney disease with stage 1 through stage 4 chronic kidney disease, or unspecified chronic kidney disease; I25.10 Atherosclerotic heart disease of native coronary artery without angina pectoris; G47.33 Obstructive sleep apnea (adult) (pediatric); G40.909 Epilepsy, unspecified, not intractable, without status epilepticus; E66.01 Morbid (severe) obesity due to excess calories; M10.9 Gout, unspecified; M48.00 Spinal stenosis, site unspecified; F32.9 Major depressive disorder, single episode, unspecified; R33.0 Drug induced retention of urine; B37.3 Candidiasis of vulva and vagina; E83.52 Hypercalcemia; T50.915A Adverse effect of multiple unspecified drugs, medicaments and biological substances, initial encounter; Z86.718 Personal history of other venous thrombosis and embolism; Z95.2 Presence of prosthetic heart valve; Y92.129 Unspecified place in nursing home as the place of occurrence of the external cause
CPT/HCPCS: 36415; 71045; 74230; 76770; 80048; 80053; 80299; 81001; 82040; 82274; 82306; 83735; 83880; 84100; 84550; 85014; 85018; 85025; 85027; 85610; 87070; 87086; 87088; 87205; 87641; 92507; 92523; 92610; 92611; 93005; 94640; 94667; 94668; 94762; 97110; 97116; 97129; 97162; 97165; 97530; 97535; 97542; 97802; A4216

== ENCOUNTER 2020-01-01 13:35 | Outpatient (RCR) | payer MEDICARE, OTHER, SELFPAY ==
[2019-12-01 14:02] VITALS: BMI 45.1
[2020-01-01 13:56] LABS: International Normalized Ratio 2.7; Prothrombin Time (Protime)PT. 28.4 SECONDS (11.7-14.9)
== END 2020-01-01 18:00 | disposition home or self-care (01) ==
LOC: HHLAB 13:35
PROVIDERS: PCP Family Medicine; Referring Provider Family Medicine; Visit Provider Family Medicine
DX: Z79.01 Long term (current) use of 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s (principal)
CPT/HCPCS: 85610

== ENCOUNTER 2020-05-23 13:55 | Outpatient (RCR) | payer MEDICARE, OTHER, SELFPAY ==
[2019-12-01 14:02] VITALS: BMI 45.1
[2020-05-23] MEDS: COVID-19 VACC, MRNA(PFIZER)/PF 30 MCG/0.3 ML SYRINGE IM (14:04)
[2020-06-13] MEDS: COVID-19 VACC, MRNA(PFIZER)/PF 30 MCG/0.3 ML SYRINGE IM (13:50)
== END 2020-08-20 23:59 ==
LOC: IMMUN 13:55
PROVIDERS: PCP Family Medicine; Visit Provider Family Medicine
DX: Z23 Encounter for immunization (principal)
CPT/HCPCS: 0001A; 0002A; 91300

== ENCOUNTER → 2020-05-24 14:19 | Outpatient (CLI) | payer MEDICARE, OTHER, SELFPAY ==
[2019-12-01 14:02] VITALS: BMI 45.1
[2020-05-24 17:51] LABS: Anion Gap 6 (5-15); BUN 26 mg/dL (7-18); BUN/Creat Ratio 19.7 RATIO (10-20); Calcium,Total 9.1 mg/dL (8.5-10.1); Chloride 108 mmol/L (98-107); Cholesterol 175 mg/dL (200); Creatinine, Serum 1.32 mg/dL (0.55-1.02); EST Glomerular Filtration Rate 41 mL/min (>60); Est Glom Filt Rate - Afr Amer 50 mL/min (>60); Glucose 93 mg/dL (74-106); High Density Lipoprotein 53 mg/dL; Potassium 4.2 mmol/L (3.5-5.1); Sodium Level 141 mmol/L (136-145); Triglycerides 321 mg/dL; Very Low Density Lipoprotein 64 mg/dL (5-40)
== END ==
PROVIDERS: PCP Family Medicine; Referring Provider Family Medicine; Visit Provider Family Medicine
DX: E78.5 Hyperlipidemia, unspecified (principal); Z95.2 Presence of prosthetic heart valve
CPT/HCPCS: 36415; 80048; 80061

== ENCOUNTER → 2020-08-16 13:46 | Outpatient (CLI) | payer MEDICARE, OTHER, SELFPAY ==
[2019-12-01 14:02] VITALS: BMI 45.1
--- NOTE | 2020-08-16 13:50 | RAD_ITS ---
STUDY: X-RAY - LUMBAR SPINE REASON FOR EXAM: Female, 75 years old. BACK PAIN TECHNIQUE: 5 view(s) of the lumbar spine were obtained. COMPARISON: 10/26/2018. FINDINGS: Mild deformity of the lumbar lordosis related to scoliosis. There is scoliosis with convexity to the left. There is a normal alignment of the vertebrae. There is diffuse demineralization with multi-level endplate spondylosis. There is multi-level degenerative disc disease with multi-level disc space narrowing. This is most severe at L1-L2. There is no demonstrated fracture. There is no demonstrated spondylolysis of the pars interarticulares. There is atherosclerotic calcification of the abdominal aorta without a demonstrated aneurysm. RAD/L/S Spine Min 4 Views IMPRESSION: Scoliosis as described above. Multilevel degenerative disease with no acute fracture or subluxation. No pars defect. Electronically Signed: Natalie Vega MD at 3:17 EDT , Service support ,
== END ==
PROVIDERS: PCP Family Medicine; Referring Provider Family Medicine; Visit Provider Family Medicine
DX: M54.9 Dorsalgia, unspecified (principal)
CPT/HCPCS: 72110

== ENCOUNTER → 2020-09-23 16:33 | Outpatient (CLI) | payer MEDICARE, OTHER, SELFPAY ==
[2019-12-01 14:02] VITALS: BMI 45.1
--- NOTE | 2020-09-23 16:36 | CT_ITS ---
STUDY: CT LUMBAR SPINE WITHOUT CONTRAST REASON FOR EXAM: Female, 75 years old. RADICULOPATHY,LUMBAR REGION,LUMBAGO W/SCIATICA, UNSPECIFIED SIDE RADIATION DOSAGE (If Supplied By Facility): CTDIvol = ( 39.87 ) mGy, DLP = ( 1619.66 ) mGycm TECHNIQUE: The patient was scanned in a multi detector CT scanner. High resolution transaxial imaging was performed. Images were obtained from L1 to S1 vertebral level. Sagittal and coronal images were reconstructed. Individualized dose optimization techniques were used for this CT. COMPARISON: None FINDINGS: Normal lumbar lordosis. There is a levoscoliosis of the lumbar spine. Normal vertebrae of the lumbar spine. L1-2: Marked degree of disc space narrowing. Anterior spondylosis as well as subchondral sclerosis. Mild degree of bilateral neural foraminal stenosis. L2-3: Marked degree of disc space narrowing and disc degeneration. No significant herniation is seen. No significant stenosis is present. L3-4: Moderate degree of disc space narrowing as well as disc degeneration. Minimal retrolisthesis of L3 on L4. Mild degree of diffuse posterior disc bulge. Facet joint osteoarthritis and hypertrophy. Mild to moderate degree of bilateral neural foraminal stenosis. L4-5: Moderate degree of disc space narrowing. Subchondral sclerosis. Moderate degree of bilateral neural foraminal stenosis worse on the left side. I suspect a left sided disc herniation. L5-S1: Mild degree of disc space narrowing. No significant stenosis is seen. Atherosclerotic calcification of the abdominal aorta. CT/Spine Lumbar without Contrast IMPRESSION: Multilevel degenerative changes, as described above. No foraminal stenosis at the L3-L4 and L4-L5 levels worse at the L4-L5 level. There is also evidence of a left-sided disc herniation at the L4-L5 level. Electronically Signed: Rupert Ann MD at 8:36 EDT , Service support ,
== END ==
PROVIDERS: PCP Family Medicine; Referring Provider Anesthesiology; Visit Provider Anesthesiology
DX: M54.40 Lumbago with sciatica, unspecified side (principal); M54.16 Radiculopathy, lumbar region
CPT/HCPCS: 72131

== ENCOUNTER 2020-09-24 14:48 | Emergency (ER) | payer MEDICARE, OTHER, SELFPAY ==
[2019-12-01 14:02] VITALS: BMI 45.1
[2020-09-24 14:49] VITALS: BP 102/57; PULSE 61; RESP 16; TEMP 36.6; O2SAT 97; BMI 40.6
--- NOTE | 2020-09-24 15:31 | CT_ITS ---
STUDY: CT BRAIN WITHOUT CONTRAST REASON FOR EXAM: Female, 75 years old. Head injury on coumadin RADIATION DOSAGE (If Supplied By Facility): CTDIvol = ( 44.99 ) mGy, DLP = ( 812.98 ) mGycm TECHNIQUE: Transaxial CT imaging of the brain was performed without administration of intravenous contrast material. Individualized dose optimization techniques were used for this CT. COMPARISON: September 22, 2019. FINDINGS: Normal soft tissue structures. Normal calvarium. There is mild cerebral atrophy with widening of the extra-axial spaces and ventricular dilatation. There are areas of decreased attenuation within the white matter tracts of the supratentorial brain, consistent with microvascular disease changes. Normal basal ganglia and thalami. Normal brainstem. Normal cerebellum. There is no intracranial hemorrhage. There are no findings of an acute ischemic infarction. Normal visualized paranasal sinuses. CT/Brain/Head without Contrast IMPRESSION: Chronic involutional changes of the brain. Electronically Signed: Cole Carr MD at 17:44 EDT , Service support ,
--- NOTE | 2020-09-24 15:37 | EX.ED.DYSGE1 ---
HPI History of Present Illness Chief Complaint: Abn Labs Detail of Chief Complaint: History of seizure disorder. Seizure on Wednesday fell and hit head. Informant: patient Onset/Context/Timing Onset: Days Context: Sudden Onset Timing: Intermittent Current Severity: Mild Maximum Severity: Mild Narrative Narrative: Seven 5-year-old female history of seizure disorder on Keppra. Also history of A. fib on Coumadin mechanical heart valve. Patient states she had a seizure on Wednesday fell and hit her head. Said the bruise on the back of her head is actually resolving. Today she was seen and had her Coumadin level checked it was 4-1/2 because of a recent fall and head injury they wanted her checked out. She denies a headache. She denies any other injuries. She denies any recent illness. Prior similar symptoms: Yes Recent Illness/Hospitalization: No PFSH [facility] Medical History Ascending aortic aneurysm Atrial fibrillation CAD (coronary artery disease) Hypertension Hypothyroidism Seizure Stage 3 chronic kidney disease Home Medications allopurinol 100 mg tablet 100 mg PO DAILY #90 tab 02/22/19 [History Last Taken Unknown] levothyroxine 100 mcg tablet 100 mcg PO DAILY #90 tab 02/22/19 [History Last Taken 11/30/19 07:30 100 MCG] metoprolol succinate 25 mg tablet,extended release 24 hr 25 mg PO DAILY #90 tab 02/22/19 [History Last Taken 11/30/19 07:30 25 MG] omeprazole 40 mg capsule,delayed release 40 mg PO DAILY #90 cap 02/22/19 [History Last Taken 11/30/19 07:30 40 MG] rosuvastatin 20 mg tablet 20 mg PO QHS #90 tab 02/22/19 [History Last Taken Unknown] Cholecalciferol (Vitamin D3) [Vitamin D3] 5,000 unit PO DAILY 11/27/19 [History Last Taken Unknown] aspirin 81 mg PO DAILY 11/27/19 [History Last Taken 11/25/19] flecainide 100 mg PO BID 11/27/19 [History Last Taken 11/30/19 07:30 100 MG] levetiracetam 750 mg PO BID 11/27/19 [History Last Taken 11/30/19 07:30 500 MG] magnesium oxide 400 mg PO DAILY 11/27/19 [History Last Taken Unknown] nitroglycerin 0.4 mg SL PRN PRN 11/27/19 [History Last Taken Unknown] potassium chloride 10 meq PO DAILY 11/27/19 [History Last Taken Unknown] acetaminophen 1,000 mg PO Q8 PRN #1 tab 12/14/19 [Rx Last Taken Unknown] duloxetine 30 mg PO DAILY #30 cap 12/14/19 [Rx Last Taken Unknown] miconazole nitrate 1 applic VAGINAL QHS tube 12/14/19 [Rx Last Taken Unknown] nortriptyline 10 mg PO QHS #30 cap 12/14/19 [Rx Last Taken Unknown] warfarin 3 mg PO DAILY 09/24/20 [History Last Taken Unknown] Allergy/AdvReac Type Severity Reaction Status Date / Time celecoxib [From Celebrex] Allergy Severe rash, Verified 09/24/20 14:52 swelling, difficulty breathing Sulfa (Sulfonamide Allergy Severe rash, Verified 09/24/20 14:52 Antibiotics) swelling, difficulty breathing Surgical History Hx of aortic valve replacement, mechanical Social History Smoking Status: Never smoker ROS ROS ED ROS Narrative Denies recent illness. Review of Systems ROS Unobtainable: Denies due to encephalopathy Constitutional Constitutional ED: Denies chills or fever(s) Eyes Eyes: Denies change in vision ENT ENT ED: Denies ear pain or sore throat Cardiovascular Cardiovascular: Denies chest pain Respiratory/Chest Respiratory/Chest: Denies dyspnea Gastrointestinal Gastrointestinal: Denies abdominal pain, diarrhea, melena, nausea or vomiting Genitourinary Genitourinary ED: Denies dysuria or hematuria Musculoskeletal Musculoskeletal: Denies myalgias Integumentary Denies rash Neurologic Neurologic: Denies headache(s) Psychiatric Psychiatric: Denies depression Endocrine Endocrinology: Denies polyuria Allergic/Immunologic Allergic/Immunologic ED: Denies urticaria EXAM Physical Exam Narrative Exam Narrative: Older female no acute distress. Vital signs are stable afebrile. H EENT exam unremarkable. Pupils round reactive light. No signs of trauma to her face no sign of trauma to her scalp. He states he had a hematoma on right posterior scalp and is resolved. C-spine nontender. Trachea midline. Lungs clear to auscultation bilaterally. Heart regular rhythm. Mechanical heart valve click. Chest nontender. Abdomen soft nontender normal bowel sounds no peritoneal signs. Pelvic girdle intact. Moving all 4 extremities. Neurovascular intact. Nontender. No deformity. No shortening or rotation. Normal range of motion. 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 Dorsi plantarflexion intact.. Spine nontender. No bruising. Neurologically she is awake alert with no focal motor deficits. Const Vital Signs: 09/24/20 14:49 09/24/20 16:20 09/24/20 18:21 Temperature 97.9 F Temperature Source Temporal Pulse Rate 61 63 Respiratory Rate 16 17 Blood Pressure 102/57 L 97/53 L 138/75 H Blood Pressure Mean 72 67 96 Pulse Ox 97 99 Oxygen Delivery Method Room Air Room Air Positive well nourished and well developed; Negative for unkempt General Appearance ED: well developed and NAD; Negative for unkempt HEENT Reports moist mucous membranes; Denies dry mucous membranes tenderness; Negative for trauma Mouth ED: No dry mucous membranes Mouth: No dry mucous membranes Eyes PERRL and EOMs intact bilaterally Neck no lymphadenopathy, supple and no JVD General: Negative for tenderness Chest Wall inspection of chest normal and palpation of chest normal Resp normal respiratory effort and clear to auscultation bilaterally Cardio regular rate, regular rhythm, S1 normal heart sound, S2 normal heart sound and no murmurs GI normal to inspection, nondistended, normoactive bowel sounds, non-tender, non-distended and no masses Auscultation: normoactive bowel sounds Palpation: soft; Negative for tender, guarding or rebound tenderness present Back/Spine no CVA tenderness General Back: Negative for CVA tenderness Cervical Spine: Negative for cervical spine tenderness Thoracic Spine / Upper Back: Negative for thoracic spinal tenderness or paraspinal muscle tenderness Lumbar Spine / Lower Back: Negative for lumbar spinal tenderness Extremity normal to inspection General Extremety ED: Negative for edema or tenderness General Extremity: Negative for edema Neuro oriented x3 and CN's II-XII intact bilaterally Sensorium / Orientation: alert; Negative for orientation impaired, lethargic or stuporous Motor Exam: strength 5/5 throughout Psych mental status grossly normal Appearance: Negative for unkempt Attitude: No agitated Mood & Affect: Negative for depressed, anxious or tearful Skin no rashes or lesions noted and no wounds MDM MDM MDM Narrative Medical decision making narrative: Older female on Coumadin for A. fib and mechanical heart valve. Had a seizure on Wednesday fell hit her head. INR was 4-1/2 today. Doctor's office wonder evaluated. Exam benign. CAT scan of her head and screening labs being obtained. Lab Data Attestation: I reviewed the patient's lab results. Lab results narrative: White count 8. Hemoglobin 11.2. Chemistries unremarkable creatinine is 1.62 with a history of renal insufficiency. CAT scan of brain is read by the radiologist shows chronic changes no acute process. Repeat exam patient doing well at 6:50 PM. Exam unremarkable. When one of her test results including labs and CAT scan. She is comfortable being discharged home. She will follow up to get her INR rechecked. Labs: Laboratory Results - last 24 hr 09/24/20 09/24/20 16:05 16:05 WBC 8.3 RBC 3.75 L Hgb 11.2 L Hct 34.7 L MCV 92.5 MCH 29.9 MCHC 32.3 RDW Std Deviation 44.1 H RDW Coeff of Pravin 13.1 Plt Count 259 MPV 9.3 Immature Gran % (Auto) 0.400 Neut % (Auto) 80.7 H Lymph % (Auto) 8.9 L [place] % (Auto) 5.8 Eos % (Auto) 3.7 Baso % (Auto) 0.5 Absolute Neuts (auto) 6.7 Absolute Lymphs (auto) 0.74 L Nucleated RBC % 0 Sodium 140 Potassium 4.3 Chloride 109 H Carbon Dioxide 24.0 Anion Gap 7 BUN 34 H Creatinine 1.62 H Estim Creat Clear Calc 25.11 Est GFR (MDRD) Af Amer 40 L Est GFR (MDRD) Non-Af 33 L BUN/Creatinine Ratio 21.0 H Glucose 103 Calcium 9.4 Radiography Diagnostic Testing: Radiology Impression Brain CT 09/24/20 15:31 IMPRESSION: Chronic involutional changes of the brain. Electronically Signed: Cole Carr MD at 17:44 EDT , Service support , Discharge Plan Triage Chief Complaint: Abn Labs ED Provider: Kirk Menon Dx/Rx/DC Orders Clinical Impression: Head injuries, Coagulopathy Instructions: ED Head Injury (Adult) Prescriptions: No Action rosuvastatin 20 mg tablet 20 mg PO QHS Qty: 90 RF: 0 omeprazole 40 mg capsule,delayed release(DR/EC) 40 mg PO DAILY Qty: 90 RF: 0 metoprolol succinate 25 mg tablet extended release 24 hr 25 mg PO DAILY Qty: 90 RF: 0 allopurinol 100 mg tablet 100 mg PO DAILY Qty: 90 RF: 0 levothyroxine 100 mcg tablet 100 mcg PO DAILY Qty: 90 RF: 0 potassium chloride 10 MEQ capsule, extended release 10 meq PO DAILY RF: 0 levetiracetam 500 MG tablet 750 mg PO BID RF: 0 aspirin 81 MG tablet,delayed release (DR/EC) 81 mg PO DAILY RF: 0 flecainide 100 MG tablet 100 mg PO BID RF: 0 nitroglycerin 0.4 MG tablet, sublingual 0.4 mg SL PRN PRN (Reason: C.P.) RF: 0 magnesium oxide 400 MG capsule 400 mg PO DAILY RF: 0 Cholecalciferol (Vitamin D3) [Vitamin D3] 5,000 UNIT capsule 5,000 unit PO DAILY RF: 0 miconazole nitrate 1 APPLIC cream 1 applic vaginal QHS RF: 0 acetaminophen 500 MG tablet 1,000 mg PO Q8 PRN (Reason: pain 1-10) Qty: 1 RF: 0 nortriptyline 10 MG capsule 10 mg PO QHS Qty: 30 RF: 0 duloxetine 30 MG capsule 30 mg PO DAILY Qty: 30 RF: 0 warfarin 3 MG tablet 3 mg PO DAILY RF: 0 Primary Care Provider: Kishore Ricci Referrals: Kishore Ricci MD [Primary Care Provider] - 1 Week Activity Restrictions/Additional Instructions: Hold your Coumadin tonight and do not take it tonight. Take your normal dose at your normal time tomorrow and restarted normally tomorrow. You need to have your Coumadin level rechecked either by Wednesday nor no later than next Wednesday to make sure it is coming closer back to her normal range. Follow-up with your doctor as needed. Return if feeling worse. Your labs and CAT scan tonight were good. Disposition Disposition: Home, Self Care
[2020-09-24 16:20] VITALS: BP 97/53
[2020-09-24 16:36] LABS: Absolute Lymphocyte Count 0.74 X10^3/uL (0.83-4.51); Absolute Neutrophil Count 6.7 X10^3/uL (2.0-7.7); Basophil# 0.04 X10^3/uL; Basophil% 0.5 % (0-1); Eosinophil# 0.31 X10^3/uL; Eosinophils% 3.7 % (0-5); Hematocrit 34.7 % (37-47); Hemoglobin 11.2 g/dL (12.0-15.0); Lymphocyte # 0.74 X10^3/ul (0.83-4.51); Lymphocyte % 8.9 % (19-41); Mean Corp Hgb Conc 32.3 g/dL (32-36); Mean Corpuscular Hgb 29.9 pg (27.0-32.0); Mean Corpuscular Volume 92.5 fL (81-99); Mean Platelet Vol. 9.3 fl (6.2-12.0); Monocyte# 0.48 X10^3/uL; Monocyte% 5.8 % (0-10); NRBC Flagged by Analyzer 0 % (0-5); Neutrophil % 80.7 % (47-70); Platelet Count 259 K/mm3 (150-450); RBC Distribution Width CV 13.1 % (11.6-14.6); RBC Distribution Width SD 44.1 fl (35.1-43.9); Red Blood Count 3.75 M/mm3 (4.2-5.4); White Blood Count 8.3 K/mm3 (4.4-11.0)
[2020-09-24 18:21] VITALS: BP 138/75; PULSE 63; RESP 17; O2SAT 99
[2020-09-24 18:50] LABS: Anion Gap 7 (5-15); BUN 34 mg/dL (7-18); Calcium,Total 9.4 mg/dL (8.5-10.1); Chloride 109 mmol/L (98-107); Creatinine, Serum 1.62 mg/dL (0.55-1.02); EST Glomerular Filtration Rate 33 mL/min (>60); Est Glom Filt Rate - Afr Amer 40 mL/min (>60); Estimated Creatinine Clearance 25.11 ml/min; Glucose 103 mg/dL (74-106); Potassium 4.3 mmol/L (3.5-5.1); Sodium Level 140 mmol/L (136-145)
[2020-09-24 19:03] VITALS: BP 161/95; O2SAT 99
== END 2020-09-24 19:04 | disposition home or self-care (01) ==
PROVIDERS: Emergency Provider Emergency Medicine; PCP Family Medicine
DX: S09.90XA Unspecified injury of head, initial encounter (principal); D68.9 Coagulation defect, unspecified; E03.9 Hypothyroidism, unspecified; I25.10 Atherosclerotic heart disease of native coronary artery without angina pectoris; Z79.01 Long term (current) use of 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s; Z79.82 Long term (current) use of aspirin; Z79.899 Other long term (current) drug therapy; W19.XXXA Unspecified fall, initial encounter
CPT/HCPCS: 70450; 80048; 85025; 99283; A4216

== ENCOUNTER → 2021-01-17 14:35 | Outpatient (CLI) | payer MEDICARE, OTHER, SELFPAY ==
--- NOTE | 2021-01-17 14:39 | CT_ITS ---
STUDY: CT BRAIN WITH AND WITHOUT CONTRAST REASON FOR EXAM: Female, 76 years old. WEAKNESS L FACIAL MUSCLE RADIATION DOSAGE (If Supplied By Facility): CTDIvol = ( 47.06 ) mGy, DLP = ( 837.39 ) mGycm TECHNIQUE: Transaxial CT imaging of the brain was performed pre and post contrast administration. The examination was performed with intravenous administration of IV-50 mL IsoVue 300. Individualized dose optimization techniques were used for this CT. COMPARISON: None. FINDINGS: Normal soft tissue structures. Normal calvarium. There is mild cerebral atrophy with widening of the extra-axial spaces and ventricular dilatation. There are areas of decreased attenuation within the white matter tracts of the supratentorial brain, consistent with microvascular disease changes. Normal basal ganglia and thalami. Normal brainstem. Normal cerebellum. There is no intracranial hemorrhage. There are no findings of an acute ischemic infarction. No suspicious enhancing lesion after contrast administration Normal visualized paranasal sinuses. CT/Brain/Head W/WO Contrast IMPRESSION: Chronic involutional changes of the brain. No acute hemorrhage No suspicious enhancing lesion. Electronically Signed: Rubén Chawla MD at 15:25 EDT , Service support ,
[2021-01-18 09:34] LABS: CREATININE FINGERSTICK 1.44 mg/dL (0.55-1.02); EGFR FINGERSTICK 37 mL/min (>60)
== END ==
PROVIDERS: PCP Family Medicine
DX: R29.810 Facial weakness (principal)
CPT/HCPCS: 70470; Q9967; A4216

== ENCOUNTER → 2021-01-23 10:05 | Outpatient (CLI) | payer MEDICARE, OTHER, SELFPAY ==
[2021-01-28 12:25] LABS: KEPPRA (LEVETIRACETAM) 37.1 ug/mL (10.0-40.0)
== END ==
PROVIDERS: PCP Family Medicine; Referring Provider Psychiatry & Neurology Neurology; Visit Provider Psychiatry & Neurology Neurology
DX: G40.909 Epilepsy, unspecified, not intractable, without status epilepticus (principal)
CPT/HCPCS: 36415; 80177

== ENCOUNTER 2021-04-21 14:08 | Emergency (ER) | payer MEDICARE, OTHER, SELFPAY ==
[2021-04-21 14:08] VITALS: BP 143/65; PULSE 58; RESP 18; TEMP 36.2; O2SAT 98; BMI 42.9
--- NOTE | 2021-04-21 14:19 | CT_ITS ---
STUDY: CT BRAIN WITHOUT CONTRAST REASON FOR EXAM: Female, 76 years old. unwitnessed fall on blood thinners RADIATION DOSAGE (If Supplied By Facility): CTDIvol = ( 47.06 ) mGy, DLP = ( 872.68 ) mGycm TECHNIQUE: Transaxial CT imaging of the brain was performed without administration of intravenous contrast material. Individualized dose optimization techniques were used for this CT. COMPARISON: No relevant priors. FINDINGS: Normal soft tissue structures. Normal calvarium. There is mild cerebral atrophy with widening of the extra-axial spaces and ventricular dilatation. There are areas of decreased attenuation within the white matter tracts of the supratentorial brain, consistent with microvascular disease changes. Normal basal ganglia and thalami. Normal brainstem. Normal cerebellum. There is no intracranial hemorrhage. There are no findings of an acute ischemic infarction. Atherosclerotic plaque formation of the cavernous portions of the internal carotid arteries bilaterally. Normal visualized paranasal sinuses. CT/Brain/Head without Contrast IMPRESSION: Chronic involutional changes of the brain. Electronically Signed: Rupert Ann MD at 14:38 EST ,
--- NOTE | 2021-04-21 14:50 | RAD_ITS ---
STUDY: X-RAY CHEST REASON FOR EXAM: Female, 76 years old. Cough TECHNIQUE: Single AP portable view of the chest. COMPARISON: No prior study is available for comparison at this time. FINDINGS: Elevation of the right hemidiaphragm. There is no demonstrated pleural abnormality. Sternal cerclage wires are present from a prior sternotomy. Patient is status post aortic valve replacement. Normal mediastinum and talha. Normal visualized pulmonary arteries. There is atherosclerotic tortuosity of the aortic arch and descending thoracic aorta. Normal visualized thoracic spine. Normal visualized ribs, clavicles, and shoulders. There is no demonstrated abnormality of the visualized soft tissue structures of the upper abdomen. RAD/Chest 1 View (Portable) IMPRESSION: Status post aortic valve replacement. No acute abnormality is seen. Electronically Signed: Rupert Ann MD at 15:55 EST ,
--- NOTE | 2021-04-21 14:50 | EKG12_ITS ---
Test Reason : SEIZURE Blood Pressure : / mmHG Vent. Rate : 054 BPM Atrial Rate : 054 BPM P-R Int : 192 ms QRS Dur : 136 ms QT Int : 520 ms P-R-T Axes : 048 -03 127 degrees QTc Int : 493 ms Sinus bradycardia Left ventricular hypertrophy with QRS widening and repolarization abnormality Abnormal ECG Confirmed by RACHID CELAYA, KARLO ([id number]), news editor NOELLE MONTANEZ ([id number]) on 04/22/2021 11:41:59 AM Referred By: ANDREEA Confirmed By:KARLO RASHID MD
--- NOTE | 2021-04-21 14:51 | EX.ED.DYSGE1 ---
HPI History of Present Illness Chief Complaint: Seizure Informant: patient and family Narrative Narrative: 76-year-old female with a history of seizure disorder been on Coumadin for aortic valve replacement states that last night around 1900 hrs. she is walking to her room next thing she knows she woke up on the ground and was 1930 hrs. She was incontinent of urine. She denies any trauma from this. She states that she was eventually able to get up off the ground and her confusion resolved. She notes a headache on the right side of her head which is typical for her after a seizure. Today she has felt off balance most of the day. She states that her home physical therapist advised her to come to the emergency room. This morning she states that she ate breakfast and needed to quickly have a bowel movement but was unsuccessful in making it to the bathroom. She also had 2 episodes of emesis. [facility] Medical History (Updated 04/21/21 @ 16:[address] Rory Webster, DO) Ascending aortic aneurysm Atrial fibrillation CAD (coronary artery disease) Hypertension Hypothyroidism Migraines Seizure Stage 3 chronic kidney disease Home Medications allopurinol 100 mg tablet 100 mg PO DAILY #90 tab 02/22/19 [History Last Taken Unknown] levothyroxine 100 mcg tablet 100 mcg PO DAILY #90 tab 02/22/19 [History Last Taken 11/30/19 07:30 100 MCG] metoprolol succinate 25 mg tablet,extended release 24 hr 25 mg PO DAILY #90 tab 02/22/19 [History Last Taken 11/30/19 07:30 25 MG] omeprazole 40 mg capsule,delayed release 40 mg PO DAILY #90 cap 02/22/19 [History Last Taken 11/30/19 07:30 40 MG] rosuvastatin 20 mg tablet 20 mg PO QHS #90 tab 02/22/19 [History Last Taken Unknown] Cholecalciferol (Vitamin D3) [Vitamin D3] 5,000 unit PO DAILY 11/27/19 [History Last Taken Unknown] aspirin 81 mg PO DAILY 11/27/19 [History Last Taken 11/25/19] flecainide 100 mg PO BID 11/27/19 [History Last Taken 11/30/19 07:30 100 MG] levetiracetam 750 mg PO BID 11/27/19 [History Last Taken 11/30/19 07:30 500 MG] magnesium oxide 400 mg PO DAILY 11/27/19 [History Last Taken Unknown] nitroglycerin 0.4 mg SL PRN PRN 11/27/19 [History Last Taken Unknown] potassium chloride 10 meq PO DAILY 11/27/19 [History Last Taken Unknown] acetaminophen 1,000 mg PO Q8 PRN #1 tab 12/14/19 [Rx Last Taken Unknown] duloxetine 30 mg PO DAILY #30 cap 12/14/19 [Rx Last Taken Unknown] miconazole nitrate 1 applic VAGINAL QHS tube 12/14/19 [Rx Last Taken Unknown] nortriptyline 10 mg PO QHS #30 cap 12/14/19 [Rx Last Taken Unknown] warfarin 3 mg PO DAILY 09/24/20 [History Last Taken Unknown] Allergy/AdvReac Type Severity Reaction Status Date / Time celecoxib [From Celebrex] Allergy Severe rash, Verified 04/21/21 14:10 swelling, difficulty breathing Sulfa (Sulfonamide Allergy Severe rash, Verified 04/21/21 14:10 Antibiotics) swelling, difficulty breathing Surgical History Hx of aortic valve replacement, mechanical Social History Smoking Status: Never smoker ROS ROS ED Constitutional Constitutional ED: Denies chills, fever(s) or weight loss Eyes Eyes: Denies change in vision or diplopia ENT ENT ED: Denies ear pain, rhinorrhea or sore throat Cardiovascular Cardiovascular: Denies chest pain, orthopnea, palpitations or racing heartbeat Respiratory/Chest Respiratory/Chest: Denies cough, dyspnea or orthopnea Gastrointestinal Gastrointestinal: Reports nausea and vomiting; Denies abdominal pain or diarrhea Genitourinary Genitourinary ED: Denies dysuria, hematuria or urinary frequency Musculoskeletal Musculoskeletal: Reports back pain; Denies arthralgias or myalgias Integumentary Denies abscess or rash Neurologic Neurologic: Reports headache(s); Denies weakness Psychiatric Psychiatric: Denies anxiety, depression, suicidal ideation or suicidal thoughts Endocrine Endocrinology: Denies polydipsia, polyphagia or polyuria Allergic/Immunologic Allergic/Immunologic ED: Denies mouth swelling, tongue swelling or urticaria EXAM Physical Exam Const Vital Signs: 04/21/21 14:08 04/21/21 15:12 Temperature 97.2 F L Temperature Source Temporal Pulse Rate 58 L 57 L Respiratory Rate 18 16 Blood Pressure 143/65 H 182/67 H Blood Pressure Mean 91 105 Pulse Ox 98 98 Oxygen Delivery Method Room Air Room Air Positive well nourished and well developed General Appearance ED: well developed HEENT Reports normocephalic, head/scalp atraumatic and moist mucous membranes Negative for trauma Eyes PERRL and EOMs intact bilaterally Neck no lymphadenopathy, supple and no JVD Resp normal respiratory effort and clear to auscultation bilaterally Cardio regular rate, regular rhythm and no murmurs GI normal to inspection, nondistended, normoactive bowel sounds and non-tender Palpation: soft Back/Spine no CVA tenderness and normal ROM Extremity normal to inspection General Extremety ED: Negative for edema General Extremity: Negative for edema Neuro oriented x3 and CN's II-XII intact bilaterally Sensorium / Orientation: alert Motor Exam: strength 5/5 throughout Psych mental status grossly normal Mood & Affect: Negative for depressed or tearful Skin no rashes or lesions noted and no wounds MDM MDM MDM Narrative Medical decision making narrative: CT of the brain was negative. My interpretation of the chest x-ray is no acute process. CBC CMP showed a creatinine 1.35 with a BUN of 32. INR is 2.4. Patient appears clinically stable. I do question whether or not she sustained a concussion when she fell for the seizure. Of her follow-up with primary care in 1 week. Return if worsening or concerns Lab Data Attestation: I reviewed the patient's lab results. Labs: Laboratory Results - last 24 hr 04/21/21 04/21/21 04/21/21 15:10 15:10 15:10 WBC 9.0 RBC 3.51 L Hgb 10.9 L Hct 33.2 L MCV 94.6 MCH 31.1 MCHC 32.8 RDW Std Deviation 44.2 H RDW Coeff of Pravin 12.7 Plt Count 224 MPV 8.9 Immature Gran % (Auto) 0.200 Neut % (Auto) 80.0 H Lymph % (Auto) 10.5 L [place] % (Auto) 7.6 Eos % (Auto) 1.4 Baso % (Auto) 0.3 Absolute Neuts (auto) 7.2 Absolute Lymphs (auto) 0.95 Nucleated RBC % 0 PT 25.5 H INR 2.4 Sodium 141 Potassium 3.7 Chloride 109 H Carbon Dioxide 27.0 Anion Gap 5 BUN 32 H Creatinine 1.35 H Estim Creat Clear Calc 29.66 Est GFR (MDRD) Af Amer 49 L Est GFR (MDRD) Non-Af 40 L BUN/Creatinine Ratio 23.7 H Glucose 98 Calcium 8.9 Total Bilirubin 0.30 AST 15 ALT 27 Alkaline Phosphatase 89 Troponin I High Sens 10 Total Protein 6.7 Albumin 3.6 Globulin 3.1 Albumin/Globulin Ratio 1.2 Radiography Diagnostic Testing: Clinical Impression(s) from Imaging Studies Brain CT 04/21/21 14:19 IMPRESSION: Chronic involutional changes of the brain. Electronically Signed: Rupert Ann MD at 14:38 EST , Chest X-Ray 04/21/21 14:50 IMPRESSION: Status post aortic valve replacement. No acute abnormality is seen. Electronically Signed: Rupert Ann MD at 15:55 EST , Discharge Plan Triage Chief Complaint: Seizure ED Provider: Rory Webster Dx/Rx/DC Orders Clinical Impression: Epileptic seizure, Concussion Instructions: After a Concussion Prescriptions: No Action rosuvastatin 20 mg tablet 20 mg PO QHS Qty: 90 RF: 0 omeprazole 40 mg capsule,delayed release(DR/EC) 40 mg PO DAILY Qty: 90 RF: 0 metoprolol succinate 25 mg tablet extended release 24 hr 25 mg PO DAILY Qty: 90 RF: 0 allopurinol 100 mg tablet 100 mg PO DAILY Qty: 90 RF: 0 levothyroxine 100 mcg tablet 100 mcg PO DAILY Qty: 90 RF: 0 potassium chloride 10 MEQ capsule, extended release 10 meq PO DAILY RF: 0 levetiracetam 500 MG tablet 750 mg PO BID RF: 0 aspirin 81 MG tablet,delayed release (DR/EC) 81 mg PO DAILY RF: 0 flecainide 100 MG tablet 100 mg PO BID RF: 0 nitroglycerin 0.4 MG tablet, sublingual 0.4 mg SL PRN PRN (Reason: C.P.) RF: 0 magnesium oxide 400 MG capsule 400 mg PO DAILY RF: 0 Cholecalciferol (Vitamin D3) [Vitamin D3] 5,000 UNIT capsule 5,000 unit PO DAILY RF: 0 miconazole nitrate 1 APPLIC cream 1 applic vaginal QHS RF: 0 acetaminophen 500 MG tablet 1,000 mg PO Q8 PRN (Reason: pain 1-10) Qty: 1 RF: 0 nortriptyline 10 MG capsule 10 mg PO QHS Qty: 30 RF: 0 duloxetine 30 MG capsule 30 mg PO DAILY Qty: 30 RF: 0 warfarin 3 MG tablet 3 mg PO DAILY RF: 0 Primary Care Provider: Kishore Ricci Referrals: Kishore Ricci MD [Primary Care Provider] - 1 Week Activity Restrictions/Additional Instructions: As discussed your Coumadin level today was 2.4 Disposition Disposition: Home, Self Care
[2021-04-21 15:12] VITALS: BP 182/67; PULSE 57; RESP 16; O2SAT 98
[2021-04-21 15:22] LABS: Absolute Lymphocyte Count 0.95 X10^3/uL (0.83-4.51); Absolute Neutrophil Count 7.2 X10^3/uL (2.0-7.7); Basophil# 0.03 X10^3/uL; Basophil% 0.3 % (0-1); Eosinophil# 0.13 X10^3/uL; Eosinophils% 1.4 % (0-5); Hematocrit 33.2 % (37-47); Hemoglobin 10.9 g/dL (12.0-15.0); Lymphocyte # 0.95 X10^3/ul (0.83-4.51); Lymphocyte % 10.5 % (19-41); Mean Corp Hgb Conc 32.8 g/dL (32-36); Mean Corpuscular Hgb 31.1 pg (27.0-32.0); Mean Corpuscular Volume 94.6 fL (81-99); Mean Platelet Vol. 8.9 fl (6.2-12.0); Monocyte# 0.69 X10^3/uL; Monocyte% 7.6 % (0-10); NRBC Flagged by Analyzer 0 % (0-5); Neutrophil # 7.21 X10^3/uL (2.7-7.7); Platelet Count 224 K/mm3 (150-450); RBC Distribution Width CV 12.7 % (11.6-14.6); RBC Distribution Width SD 44.2 fl (35.1-43.9); Red Blood Count 3.51 M/mm3 (4.2-5.4)
[2021-04-21 15:32] LABS: International Normalized Ratio 2.4; Prothrombin Time (Protime)PT. 25.5 SECONDS (11.7-14.9)
[2021-04-21 15:37] LABS: ALB/GLOB Ratio 1.2 RATIO (0.9-2.4); AST(SGOT) 15 U/L (15-37); Alanine Aminotransfer ALT/SGPT 27 U/L (13-56); Albumin, Serum 3.6 g/dL (3.2-5.0); Alkaline Phosphatase 89 U/L (45-117); Anion Gap 5 (5-15); BUN 32 mg/dL (7-18); BUN/Creat Ratio 23.7 RATIO (10-20); Calcium,Total 8.9 mg/dL (8.5-10.1); Chloride 109 mmol/L (98-107); Creatinine, Serum 1.35 mg/dL (0.55-1.02); EST Glomerular Filtration Rate 40 mL/min (>60); Est Glom Filt Rate - Afr Amer 49 mL/min (>60); Estimated Creatinine Clearance 29.66 ml/min; Globulin 3.1 g/dL (2.2-4.2); Glucose 98 mg/dL (74-106); Potassium 3.7 mmol/L (3.5-5.1); Protein, Total 6.7 g/dL (6.4-8.2); Sodium Level 141 mmol/L (136-145); Troponin-I HS 10 pg/mL (3.0-54.0)
== END 2021-04-21 16:37 | disposition home or self-care (01) ==
PROVIDERS: Emergency Provider Emergency Medicine; PCP Family Medicine; Visit Provider Emergency Medicine
DX: G40.909 Epilepsy, unspecified, not intractable, without status epilepticus (principal); S06.0X0A Concussion without loss of consciousness, initial encounter; I25.10 Atherosclerotic heart disease of native coronary artery without angina pectoris; X58.XXXA Exposure to other specified factors, initial encounter
CPT/HCPCS: 70450; 71045; 80053; 84484; 85025; 85610; 93005; 99283; A4216

== ENCOUNTER 2021-04-30 16:26 | Outpatient (CLI) | payer MEDICARE, OTHER, SELFPAY ==
[2021-05-05 13:36] LABS: KEPPRA (LEVETIRACETAM) 64.3 ug/mL (10.0-40.0)
== END 2021-04-30 23:59 | disposition home or self-care (01) ==
LOC: MFPLAB 16:33
PROVIDERS: PCP Family Medicine; Referring Provider Family Medicine; Visit Provider Family Medicine
DX: G40.909 Epilepsy, unspecified, not intractable, without status epilepticus (principal)
CPT/HCPCS: 36415; 80177

== ENCOUNTER 2021-05-05 11:50 | Emergency (ER) | payer MEDICARE, OTHER, SELFPAY ==
[2021-05-05 11:51] VITALS: BP 138/51; PULSE 44; RESP 17; TEMP 35.9; O2SAT 98; BMI 39.6
[2021-05-05 12:00] VITALS: BP 121/68; PULSE 76; RESP 20; O2SAT 97
--- NOTE | 2021-05-05 12:09 | EKG12_ITS ---
Test Reason : HR Blood Pressure : / mmHG Vent. Rate : 052 BPM Atrial Rate : 056 BPM P-R Int : 000 ms QRS Dur : 138 ms QT Int : 506 ms P-R-T Axes : 000 -20 105 degrees QTc Int : 470 ms Atrial fibrillation Non-specific intra-ventricular conduction block Nonspecific T wave abnormality Abnormal ECG Confirmed by RACHID CELAYA, KARLO ([id number]), film editor NOELLE MONTANEZ ([id number]) on 05/07/2021 8:07:58 AM Referred By: EDWINA Confirmed By:KARLO RASHID MD
--- NOTE | 2021-05-05 12:09 | EX.ED.DYSGE1 ---
HPI History of Present Illness Chief Complaint: Palpitations Informant: patient Narrative Narrative: Patient presents secondary to low heart rate. Patient has a history of A. fib and is on flecainide, amlodipine, and metoprolol. She reports she will often have low heart rates that sometimes last up to 8 hours. [facility] came in today for some physical therapy and her heart rate was low and called her PCP. Advised her to come in. Patient has no complaints at this time, but then does state that she does feel slightly lightheaded when she first stands up. She states that she has had this multiple times in the past and was not concerned. She denies chest pain. [facility] Medical History Ascending aortic aneurysm Atrial fibrillation CAD (coronary artery disease) Hypertension Hypothyroidism Migraines Seizure Stage 3 chronic kidney disease Home Medications allopurinol 100 mg tablet 100 mg PO DAILY #90 tab 02/22/19 [History Last Taken Unknown] levothyroxine 100 mcg tablet 100 mcg PO DAILY #90 tab 02/22/19 [History Last Taken 11/30/19 07:30 100 MCG] metoprolol succinate 25 mg tablet,extended release 24 hr 25 mg PO DAILY #90 tab 02/22/19 [History Last Taken 11/30/19 07:30 25 MG] omeprazole 40 mg capsule,delayed release 40 mg PO DAILY #90 cap 02/22/19 [History Last Taken 11/30/19 07:30 40 MG] rosuvastatin 20 mg tablet 20 mg PO QHS #90 tab 02/22/19 [History Last Taken Unknown] Cholecalciferol (Vitamin D3) [Vitamin D3] 5,000 unit PO DAILY 11/27/19 [History Last Taken Unknown] aspirin 81 mg PO DAILY 11/27/19 [History Last Taken 11/25/19] flecainide 100 mg PO BID 11/27/19 [History Last Taken 11/30/19 07:30 100 MG] levetiracetam 1,500 mg PO BID 11/27/19 [History Last Taken 11/30/19 07:30 500 MG] magnesium oxide 400 mg PO DAILY 11/27/19 [History Last Taken Unknown] nitroglycerin 0.4 mg SL PRN PRN 11/27/19 [History Last Taken Unknown] potassium chloride 10 meq PO DAILY 11/27/19 [History Last Taken Unknown] acetaminophen 1,000 mg PO Q8 PRN #1 tab 12/14/19 [Rx Last Taken Unknown] duloxetine 30 mg PO DAILY #30 cap 12/14/19 [Rx Last Taken Unknown] miconazole nitrate 1 applic VAGINAL QHS tube 12/14/19 [Rx Last Taken Unknown] nortriptyline 10 mg PO QHS #30 cap 12/14/19 [Rx Last Taken Unknown] warfarin 3 mg PO DAILY 09/24/20 [History Last Taken Unknown] Allergy/AdvReac Type Severity Reaction Status Date / Time celecoxib [From Celebrex] Allergy Severe rash, Verified 05/05/21 11:51 swelling, difficulty breathing Sulfa (Sulfonamide Allergy Severe rash, Verified 05/05/21 11:51 Antibiotics) swelling, difficulty breathing Surgical History Hx of aortic valve replacement, mechanical Social History Smoking Status: Never smoker ROS ROS ED Constitutional Constitutional ED: Denies chills or fever(s) Eyes Eyes: Denies change in vision ENT ENT ED: Denies sore throat Cardiovascular Cardiovascular: Denies chest pain Respiratory/Chest Respiratory/Chest: Denies cough or dyspnea Gastrointestinal Gastrointestinal: Denies abdominal pain, diarrhea, nausea or vomiting Genitourinary Genitourinary ED: Denies dysuria Musculoskeletal Musculoskeletal: Denies back pain Integumentary Denies rash Neurologic Neurologic: Denies headache(s) Allergic/Immunologic Allergic/Immunologic ED: Denies urticaria EXAM Physical Exam Const Vital Signs: 05/05/21 11:51 05/05/21 12:00 Temperature 96.6 F L Temperature Source Temporal Pulse Rate 44 L 76 Respiratory Rate 17 20 H Respiratory Effort Normal Blood Pressure 138/51 H 121/68 H Blood Pressure Mean 80 85 Pulse Ox 98 97 Oxygen Delivery Method Room Air Room Air Positive well nourished and well developed General Appearance ED: well developed HEENT Reports normocephalic and head/scalp atraumatic Eyes PERRL and EOMs intact bilaterally Neck supple Chest Wall inspection of chest normal and palpation of chest normal Resp normal respiratory effort and clear to auscultation bilaterally Cardio regular rhythm Rate: bradycardia GI normal to inspection, nondistended, normoactive bowel sounds and non-tender Palpation: soft Extremity normal to inspection Neuro oriented x3 Sensorium / Orientation: alert Psych mental status grossly normal Skin no rashes or lesions noted MDM MDM MDM Narrative Medical decision making narrative: EKG and lab work obtained. Lab Data Attestation: I reviewed the patient's lab results. Labs: Laboratory Results - last 24 hr 05/05/21 05/05/21 05/05/21 12:00 12:00 12:00 WBC 9.5 RBC 3.68 L Hgb 11.7 L Hct 35.8 L MCV 97.3 MCH 31.8 MCHC 32.7 RDW Std Deviation 44.8 H RDW Coeff of Pravin 12.6 Plt Count 265 MPV 9.1 Immature Gran % (Auto) 0.400 Neut % (Auto) 79.5 H Lymph % (Auto) 9.2 L Butler % (Auto) 8.3 Eos % (Auto) 2.3 Baso % (Auto) 0.3 Absolute Neuts (auto) 7.5 Absolute Lymphs (auto) 0.87 Nucleated RBC % 0 PT 19.3 H INR 1.7 Sodium 140 Potassium 4.4 Chloride 107 Carbon Dioxide 30.0 Anion Gap 3 L BUN 29 H Creatinine 1.74 H Estim Creat Clear Calc 23.01 Est GFR (MDRD) Af Amer 36 L Est GFR (MDRD) Non-Af 30 L BUN/Creatinine Ratio 16.7 Glucose 90 Calcium 9.1 EKG Initial EKG: Attestation: I personally reviewed and interpreted this EKG as follows: Interpretation: Atrial Fibrillation (Atrial fibrillation with a ventricular rate of 52 bpm. No acute ischemia.) Treatment and Re-Evaluation Comments:: Patient's lab work reviewed with her. INR is slightly subtherapeutic at 1.7. Chemistry studies significant for creatinine of 1.7. Appears that she fluctuates between 1.4 and 1.7. Patient will adjust her Coumadin. Heart rate remains low in the 40s, however patient's blood pressure has been stable and she has no complaints. She reports multiple episodes of similar in has no concerns about going home and watching her vital signs. She will be discharged with a family member at this time. Discharge Plan Triage Chief Complaint: Palpitations ED Provider: Maribell Jang Dx/Rx/DC Orders Clinical Impression: Bradycardia Instructions: ED Bradycardia Prescriptions: No Action rosuvastatin 20 mg tablet 20 mg PO QHS Qty: 90 RF: 0 omeprazole 40 mg capsule,delayed release(DR/EC) 40 mg PO DAILY Qty: 90 RF: 0 metoprolol succinate 25 mg tablet extended release 24 hr 25 mg PO DAILY Qty: 90 RF: 0 allopurinol 100 mg tablet 100 mg PO DAILY Qty: 90 RF: 0 levothyroxine 100 mcg tablet 100 mcg PO DAILY Qty: 90 RF: 0 potassium chloride 10 MEQ capsule, extended release 10 meq PO DAILY RF: 0 levetiracetam 500 MG tablet 1,500 mg PO BID RF: 0 aspirin 81 MG tablet,delayed release (DR/EC) 81 mg PO DAILY RF: 0 flecainide 100 MG tablet 100 mg PO BID RF: 0 nitroglycerin 0.4 MG tablet, sublingual 0.4 mg SL PRN PRN (Reason: C.P.) RF: 0 magnesium oxide 400 MG capsule 400 mg PO DAILY RF: 0 Cholecalciferol (Vitamin D3) [Vitamin D3] 5,000 UNIT capsule 5,000 unit PO DAILY RF: 0 miconazole nitrate 1 APPLIC cream 1 applic vaginal QHS RF: 0 acetaminophen 500 MG tablet 1,000 mg PO Q8 PRN (Reason: pain 1-10) Qty: 1 RF: 0 nortriptyline 10 MG capsule 10 mg PO QHS Qty: 30 RF: 0 duloxetine 30 MG capsule 30 mg PO DAILY Qty: 30 RF: 0 warfarin 3 MG tablet 3 mg PO DAILY RF: 0 Primary Care Provider: Kishore Ricci Referrals: Kishore Ricci MD [Primary Care Provider] - As Needed Disposition Disposition: Home, Self Care
[2021-05-05 12:21] LABS: Absolute Lymphocyte Count 0.87 X10^3/uL (0.83-4.51); Absolute Neutrophil Count 7.5 X10^3/uL (2.0-7.7); Basophil# 0.03 X10^3/uL; Basophil% 0.3 % (0-1); Eosinophil# 0.22 X10^3/uL; Eosinophils% 2.3 % (0-5); Hematocrit 35.8 % (37-47); Hemoglobin 11.7 g/dL (12.0-15.0); Lymphocyte # 0.87 X10^3/ul (0.83-4.51); Lymphocyte % 9.2 % (19-41); Mean Corp Hgb Conc 32.7 g/dL (32-36); Mean Corpuscular Hgb 31.8 pg (27.0-32.0); Mean Corpuscular Volume 97.3 fL (81-99); Mean Platelet Vol. 9.1 fl (6.2-12.0); Monocyte# 0.78 X10^3/uL; Monocyte% 8.3 % (0-10); NRBC Flagged by Analyzer 0 % (0-5); Neutrophil # 7.51 X10^3/uL (2.7-7.7); Neutrophil % 79.5 % (47-70); Platelet Count 265 K/mm3 (150-450); RBC Distribution Width CV 12.6 % (11.6-14.6); RBC Distribution Width SD 44.8 fl (35.1-43.9); Red Blood Count 3.68 M/mm3 (4.2-5.4); White Blood Count 9.5 K/mm3 (4.4-11.0)
[2021-05-05 12:25] LABS: International Normalized Ratio 1.7; Prothrombin Time (Protime)PT. 19.3 SECONDS (11.7-14.9)
[2021-05-05 12:38] LABS: Anion Gap 3 (5-15); BUN 29 mg/dL (7-18); BUN/Creat Ratio 16.7 RATIO (10-20); Calcium,Total 9.1 mg/dL (8.5-10.1); Chloride 107 mmol/L (98-107); Creatinine, Serum 1.74 mg/dL (0.55-1.02); EST Glomerular Filtration Rate 30 mL/min (>60); Est Glom Filt Rate - Afr Amer 36 mL/min (>60); Estimated Creatinine Clearance 23.01 ml/min; Glucose 90 mg/dL (74-106); Potassium 4.4 mmol/L (3.5-5.1); Sodium Level 140 mmol/L (136-145)
[2021-05-05 13:16] VITALS: BP 143/98; PULSE 56; RESP 18; TEMP 36.4
== END 2021-05-05 13:17 | disposition home or self-care (01) ==
PROVIDERS: Emergency Provider Emergency Medicine; PCP Family Medicine; Visit Provider Emergency Medicine
DX: R00.1 Bradycardia, unspecified (principal); I48.91 Unspecified atrial fibrillation; N18.30 Chronic kidney disease, stage 3 unspecified; R00.2 Palpitations; I12.9 Hypertensive chronic kidney disease with stage 1 through stage 4 chronic kidney disease, or unspecified chronic kidney disease; I25.10 Atherosclerotic heart disease of native coronary artery without angina pectoris; E03.9 Hypothyroidism, unspecified; Z79.82 Long term (current) use of aspirin; Z79.899 Other long term (current) drug therapy; Z79.01 Long term (current) use of 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s
CPT/HCPCS: 80048; 85025; 85610; 93005; 99284; A4216

== ENCOUNTER 2021-06-16 09:45 | Outpatient (CLI) | payer MEDICARE, OTHER, SELFPAY | END 2021-06-16 23:59 | disposition home or self-care (01) | LOC: PSN 09:50 | PROVIDERS: PCP Family Medicine; Referring Provider Internal Medicine Cardiovascular Disease; Visit Provider Internal Medicine Cardiovascular Disease | DX: I49.8 Other specified cardiac arrhythmias (principal) | CPT/HCPCS: 93225; 93226 ==

== ENCOUNTER 2021-06-24 15:29 | Outpatient (CLI) | payer MEDICARE, OTHER, SELFPAY ==
[2021-06-24 15:45] LABS: Absolute Lymphocyte Count 1.19 X10^3/uL (0.83-4.51); Absolute Neutrophil Count 9.3 X10^3/uL (2.0-7.7); Basophil# 0.05 X10^3/uL; Basophil% 0.4 % (0-1); Eosinophil# 0.18 X10^3/uL; Eosinophils% 1.5 % (0-5); Hematocrit 37.7 % (37-47); Hemoglobin 12.2 g/dL (12.0-15.0); Lymphocyte # 1.19 X10^3/ul (0.83-4.51); Lymphocyte % 10.1 % (19-41); Mean Corp Hgb Conc 32.4 g/dL (32-36); Mean Corpuscular Hgb 30.8 pg (27.0-32.0); Mean Corpuscular Volume 95.2 fL (81-99); Mean Platelet Vol. 9.5 fl (6.2-12.0); Monocyte# 0.99 X10^3/uL; Monocyte% 8.4 % (0-10); NRBC Flagged by Analyzer 0 % (0-5); Neutrophil # 9.29 X10^3/uL (2.7-7.7); Neutrophil % 79.3 % (47-70); Platelet Count 272 K/mm3 (150-450); RBC Distribution Width CV 12.6 % (11.6-14.6); RBC Distribution Width SD 44.1 fl (35.1-43.9); Red Blood Count 3.96 M/mm3 (4.2-5.4); White Blood Count 11.7 K/mm3 (4.4-11.0)
[2021-06-24 16:08] LABS: Anion Gap 6 (5-15); BUN 27 mg/dL (7-18); BUN/Creat Ratio 12.4 RATIO (10-20); Chloride 105 mmol/L (98-107); Creatinine, Serum 2.17 mg/dL (0.55-1.02); EST Glomerular Filtration Rate 23 mL/min (>60); Est Glom Filt Rate - Afr Amer 28 mL/min (>60); Glucose 110 mg/dL (74-106); Potassium 3.9 mmol/L (3.5-5.1); Sodium Level 141 mmol/L (136-145)
== END 2021-06-24 23:59 | disposition home or self-care (01) ==
LOC: LAB 15:29
PROVIDERS: PCP Family Medicine; Visit Provider Internal Medicine Cardiovascular Disease
DX: R55 Syncope and collapse (principal)
CPT/HCPCS: 36415; 80048; 85025

== ENCOUNTER → 2021-07-25 | Outpatient (CLI) | payer MEDICARE, OTHER, SELFPAY ==
--- NOTE | 2021-07-25 13:01 | ECHOCS_ITS ---
Version 2 Reason For Study: Valve Replacement Eval Procedure This was a 2D Doppler, Color Flow transthoracic echocardiogram. Contrast injection was performed. Exam performed in department. Left Ventricle Normal LV size. Left ventricular systolic function is normal. The estimated ejection fraction is 60 %. No regional wall motion abnormalities noted. Right Ventricle Normal RV size. Normal systolic function. Atria Normal left atrium. Normal right atrium. Mitral Valve There is mild mitral annular calcification. Mild (1+) eccentric mitral valve insufficiency. Tricuspid Valve Normal tricuspid valve. Mild (1+) tricuspid valve insufficiency. Pulmonary artery systolic pressure is 28 mmHg. Aortic Valve Peak aortic valve gradient 25 mmHg. Mean aortic valve gradient 13 mmHg. Trivial aortic valve insufficiency. Stable appearing bioprosthetic aortic valve apparatus. Great Vessels Normal aortic root. The pulmonary artery is normal size. Normal inferior vena cava. Pericardium/Pleural No pericardial effusion. Medication Diluted definity 2ml given slow IV push to enhance endocardial definition. MMode/2D Measurements & Calculations LVIDd: 5.6 cm IVSd: 0.92 cm LVOT diam: 2.1 cm LVIDs: 3.5 cm LVPWd: 1.1 cm LVOT area: 3.4 cm2 RVDd: 4.8 cm FS: 37.2 % Ao root diam: 3.4 cm LAV(MOD-bp): 69.5 ml LVAd ap4: 24.4 cm2 LAV(MOD-bp) Indexed: 32.3 ml/m2 LVLd ap4: 6.7 cm LAV(MOD-sp2): 69.9 ml EDV(MOD-sp4): 72.3 ml LAV(MOD-sp4): 57.9 ml EDV(sp4-el): 75.0 ml LVAs ap4: 15.0 cm2 LVLs ap4: 5.9 cm ESV(MOD-sp4): 31.7 ml ESV(sp4-el): 32.3 ml EF(MOD-sp4): 56.2 % EF(sp4-el): 56.9 % SV(MOD-sp4): 40.6 ml SV(sp4-el): 42.7 ml LA A4 area: 20.7 cm2 LA dimension(2D): 5.1 cm RA A4 area: 18.2 cm2 Doppler Measurements & Calculations MV E max joey: 95.8 cm/sec Lat Peak E' Joey: 6.5 cm/sec Med Peak E' Joey: 5.4 cm/sec MV A max joey: 27.8 cm/sec E/E' lat: 14.7 E/E' med: 17.7 MV E/A: 3.4 Ao V2 max: 250.4 cm/sec LV V1 max: 152.7 cm/sec SV(LVOT): 100.4 ml Ao max P.1 mmHg LV V1 max P.3 mmHg Ao V2 mean: 174.0 cm/sec LV V1 mean P.5 mmHg Ao mean P.3 mmHg LV V1 mean: 112.0 cm/sec Ao V2 VTI: 58.0 cm LV V1 VTI: 29.6 cm NAVJOT(I,D): 1.7 cm2 NAVJOT(V,D): 2.1 cm2 PA V2 max: 79.9 cm/sec PI end-d joey: 60.7 cm/sec TR max joey: 247.9 cm/sec TR max P.6 mmHg ECHO/Echo Complete W/ Contrast Interpretation Summary Mild (1+) eccentric mitral valve insufficiency. Normal LV size. Left ventricular systolic function is normal. The estimated ejection fraction is 60 %. Pulmonary artery systolic pressure is 28 mmHg. Stable appearing bioprosthetic aortic valve apparatus. Ordering Physician: Gabriel Leblanc Referring Physician: Kishore Ricci Performed By: Kerry Mann, RDCS, RVT
== END | disposition home or self-care (01) ==
LOC: CVS 13:01
PROVIDERS: PCP Family Medicine; Referring Provider Internal Medicine Cardiovascular Disease; Visit Provider Internal Medicine Cardiovascular Disease
DX: Z95.2 Presence of prosthetic heart valve (principal)
CPT/HCPCS: 93306; Q9957; A4216; C8929

== ENCOUNTER → 2021-07-30 | Outpatient (CLI) | payer MEDICARE, OTHER, SELFPAY ==
--- NOTE | 2021-07-30 16:06 | RAD_ITS ---
STUDY: X-RAY - LEFT SHOULDER REASON FOR EXAM: Female, 76 years old. PAIN TECHNIQUE: view(s) of the shoulder. COMPARISON: None. FINDINGS: Normal glenohumeral articulation. Normal acromioclavicular joint. Normal acromion. Normal humeral head and visualized proximal humerus. There is degenerative narrowing of the space between the acromion process and the humeral head. In some instances this indicates erosion or complete tear of the rotator cuff. Normal visualized pulmonary apex. RAD/Shoulder min 2 Views IMPRESSION: Degenerative changes with high position of the humeral head. Electronically Signed: Keyon Avila MD at 1:33 EDT ,
== END | disposition home or self-care (01) ==
PROVIDERS: PCP Family Medicine; Referring Provider Family Medicine; Visit Provider Family Medicine
DX: M25.512 Pain in left shoulder (principal)
CPT/HCPCS: 73030

== ENCOUNTER → 2021-09-12 | Outpatient (CLI) | payer MEDICARE, OTHER, SELFPAY ==
[2021-09-12 15:56] LABS: ALB/GLOB Ratio 1.2 RATIO (0.9-2.4); AST(SGOT) 12 U/L (15-37); Alanine Aminotransfer ALT/SGPT 17 U/L (13-56); Albumin, Serum 3.7 g/dL (3.2-5.0); Alkaline Phosphatase 93 U/L (45-117); Anion Gap 9 (5-15); BUN 37 mg/dL (7-18); BUN/Creat Ratio 20.8 RATIO (10-20); Calcium,Total 9.2 mg/dL (8.5-10.1); Chloride 109 mmol/L (98-107); Creatinine, Serum 1.78 mg/dL (0.55-1.02); EST Glomerular Filtration Rate 29 mL/min (>60); Est Glom Filt Rate - Afr Amer 35 mL/min (>60); Globulin 3.1 g/dL (2.2-4.2); Glucose 117 mg/dL (74-106); Phosphorus 3.2 mg/dL (2.5-4.9); Potassium 4.2 mmol/L (3.5-5.1); Protein, Total 6.8 g/dL (6.4-8.2); Sodium Level 143 mmol/L (136-145); T4 Free Direct 0.96 ng/dL (0.76-1.46); Thyroid Stim Hormone (TSH) 2.61 uIU/mL (0.358-3.74)
[2021-09-12 16:26] LABS: Vitamin D,25 Hydroxy 33.3 ng/mL
== END | disposition home or self-care (01) ==
LOC: BIMLAB 14:19
PROVIDERS: PCP Family Medicine; Referring Provider Internal Medicine Endocrinology, Diabetes & Metabolism; Visit Provider Internal Medicine Endocrinology, Diabetes & Metabolism
DX: E55.9 Vitamin D deficiency, unspecified (principal); N18.30 Chronic kidney disease, stage 3 unspecified; I12.9 Hypertensive chronic kidney disease with stage 1 through stage 4 chronic kidney disease, or unspecified chronic kidney disease; E03.9 Hypothyroidism, unspecified
CPT/HCPCS: 36415; 80053; 82306; 83970; 84100; 84439; 84443

== ENCOUNTER → 2021-10-28 | Outpatient (CLI) | payer MEDICARE, OTHER, SELFPAY ==
--- NOTE | 2021-10-28 15:33 | BD_ITS ---
STUDY: DUAL ENERGY X-RAY ABSORPTIOMETRY / DXA REASON FOR EXAM: Female, 76 years old. POST BRANDON TECHNIQUE: Bone Mineral Density (BMD) measurements of lumbar spine and bilateral hips were obtained. COMPARISON: None. FINDINGS: Lumbar Spine (L1-L4): g/cm2 (1.022) / T-score (-0.3) / Z-score (2.4) Findings are suggestive of normal bone density with a low fracture risk. Left Femur Total: g/cm2 (0.813) / T-score (-1.1) / Z-score (0.9) Left Femoral Neck: g/cm2 (0.660) / T-score (-1.7) / Z-score (0.5) Right Femur Total: g/cm2 (0.853) / T-score (-0.7) / Z-score (1.3) Right Femoral Neck: g/cm2 (0.742) / T-score (-1.0) / Z-score (1.3) BD/Dexa Bone Density Study IMPRESSION: The patient is considered normal as outlined below according to World Manoj Organization (WHO) criteria with a moderate fracture risk. Reference Information: The T-score is the number of standard deviations above or below the standard which is normal for young adults at their peak bone mineral density. The World Health Organization (WHO) interprets the T-scores as follows: Above -1 Normal bone density Between -1 and -2.5 Osteopenia Equal to / or below -2.5 Osteoporosis As a practical clinical guideline, osteopenia may be graded as follows: Mild -1 through -1.5 Moderate -1.6 through -2.0 Severe -2.1 through -2.4 The Z-score is the number of standard deviations above or below age-matched controls. A Z-score of less than -1.5 would be considered abnormal. References: 1. NIH Osteoporosis and Related Bone Diseases www osteo.org 2. International Society for Clinical Densitometry www iscd.org 3. National Osteoporosis Foundation www nof.org Electronically Signed: Rupert Ann MD at 13:01 EDT ,
== END | disposition home or self-care (01) ==
LOC: OPBD 15:28
PROVIDERS: PCP Family Medicine; Referring Provider Internal Medicine Endocrinology, Diabetes & Metabolism; Visit Provider Internal Medicine Endocrinology, Diabetes & Metabolism
DX: M81.0 Age-related osteoporosis without current pathological fracture (principal); M85.80 Other specified disorders of bone density and structure, unspecified site
CPT/HCPCS: 77080

== ENCOUNTER → 2021-11-04 | Outpatient (CLI) | payer MEDICARE, OTHER, SELFPAY ==
[2021-11-04 17:06] LABS: Amphetamine Urine VISTA NEGATIVE (<1000 ng/mL); Barbiturate Urine VISTA NEGATIVE (< 200 ng/mL); Benzodiazepine Urine VISTA NEGATIVE (< 200 ng/mL); Cocaine Urine VISTA NEGATIVE (< 300 ng/mL); Ecstacy Urine VISTA NEGATIVE (< 500 ng/mL); Methadone Urine VISTA NEGATIVE (< 300 ng/mL); PCP Urine VISTA NEGATIVE (< 25 ng/mL); THC Urine VISTA NEGATIVE (< 50 ng/mL); Vista UDS pH Range 4
== END | disposition home or self-care (01) ==
LOC: LAB 16:34
PROVIDERS: PCP Family Medicine; Visit Provider Anesthesiology Pain Medicine
DX: F11.20 Opioid dependence, uncomplicated (principal)
CPT/HCPCS: 36415; 80307

== ENCOUNTER → 2021-11-07 | Outpatient (CLI) | payer MEDICARE, OTHER, SELFPAY ==
[2021-11-07 12:19] LABS: Absolute Neutrophil Count 7.1 X10^3/uL (2.0-7.7); Basophil# 0.05 X10^3/uL; Basophil% 0.6 % (0-1); Eosinophil# 0.28 X10^3/uL; Eosinophils% 3.1 % (0-5); Hematocrit 36.5 % (37-47); Hemoglobin 11.5 g/dL (12.0-15.0); Mean Corp Hgb Conc 31.5 g/dL (32-36); Mean Corpuscular Hgb 29.8 pg (27.0-32.0); Mean Corpuscular Volume 94.6 fL (81-99); Mean Platelet Vol. 10.3 fl (6.2-12.0); Monocyte# 0.64 X10^3/uL; Monocyte% 7.1 % (0-10); NRBC Flagged by Analyzer 0 % (0-5); Neutrophil % 78.9 % (47-70); Platelet Count 291 K/mm3 (150-450); RBC Distribution Width CV 12.6 % (11.6-14.6); RBC Distribution Width SD 43.8 fl (35.1-43.9); Red Blood Count 3.86 M/mm3 (4.2-5.4)
[2021-11-07 12:38] LABS: ALB/GLOB Ratio 1.1 RATIO (0.9-2.4); AST(SGOT) 13 U/L (15-37); Alanine Aminotransfer ALT/SGPT 26 U/L (13-56); Albumin, Serum 3.5 g/dL (3.2-5.0); Alkaline Phosphatase 100 U/L (45-117); Anion Gap 6 (5-15); BUN 33 mg/dL (7-18); Calcium,Total 9.1 mg/dL (8.5-10.1); Chloride 107 mmol/L (98-107); Creatinine, Serum 1.57 mg/dL (0.55-1.02); EST Glomerular Filtration Rate 34 mL/min (>60); Est Glom Filt Rate - Afr Amer 41 mL/min (>60); Globulin 3.1 g/dL (2.2-4.2); Glucose 87 mg/dL (74-106); Potassium 4.1 mmol/L (3.5-5.1); Protein, Total 6.6 g/dL (6.4-8.2); Sodium Level 140 mmol/L (136-145)
[2021-11-13 13:34] LABS: Trileptal-Oxcarbazepine 7 ug/mL (10-35)
== END | disposition home or self-care (01) ==
LOC: MFPLAB 10:10
PROVIDERS: PCP Family Medicine; Referring Provider Family Medicine; Visit Provider Physician Assistant
DX: G40.909 Epilepsy, unspecified, not intractable, without status epilepticus (principal)
CPT/HCPCS: 36415; 80053; 82542; 85025

== ENCOUNTER 2021-11-14 23:23 | Observation (INO) | payer MEDICARE, OTHER, SELFPAY ==
--- NOTE | 2021-11-14 00:01 | RAD_ITS ---
STUDY: X-RAY CHEST REASON FOR EXAM: Female, 76 years old. chest pain TECHNIQUE: Single AP portable view of the chest. COMPARISON: FINDINGS: Status post heart valve replacement surgery. The lungs are clear and expanded. There is no demonstrated pleural abnormality. Normal size heart. Normal mediastinum and talha. Normal visualized pulmonary arteries. Normal visualized aortic arch and descending thoracic aorta. Normal visualized thoracic spine. Normal visualized ribs, clavicles, and shoulders. There is no demonstrated abnormality of the visualized soft tissue structures of the upper abdomen. RAD/Chest 1 View (Portable) IMPRESSION: No active disease. Electronically Signed: Umesh Barrera MD at 0:17 EDT ,
[2021-11-14 23:24] VITALS: PULSE 66; RESP 16; TEMP 36.2; O2SAT 96; BMI 41.3
--- NOTE | 2021-11-14 23:56 | EKG12_ITS ---
Test Reason : CP Blood Pressure : / mmHG Vent. Rate : 059 BPM Atrial Rate : 000 BPM P-R Int : 000 ms QRS Dur : 152 ms QT Int : 504 ms P-R-T Axes : 000 -15 096 degrees QTc Int : 498 ms Junctional rhythm Left bundle branch block Abnormal ECG Confirmed by CHER CELAYA, BRIANA ([id number]), photographic editor NOELLE MONTANEZ ([id number]) on 11/18/2021 9:02:04 AM Referred By: BB Confirmed By:TIFFANIE KWON MD
--- NOTE | 2021-11-14 23:57 | ED.VIS.CHEST ---
HPI History of Present Illness Chief Complaint: Chest Pain Informant: patient Onset/Context/Timing Onset: Hours (1) Activity at onset: onset and - (In bed doing gentle musculoskeletal physical therapy exercises prior to sleep) Timing: Continuous Current Severity: Gone Maximum Severity: Moderate Worsened By: Nothing; Not Worsened By Movement of Arm, Movement of Torso, Breathing or Coughing Relieved By: NTG (x2) Associated Symptoms: Positive for Lightheadedness (Without syncope or near syncope) and Palpitations; Negative for Nausea, Vomiting, Diaphoresis, Dyspnea, Cough or Fever Narrative Narrative: Patient was in bed tonight doing her PT exercises she has been doing since recovering from an ankle fracture, she started suddenly having left followed by bilateral jaw discomfort, left upper extremity discomfort, and substernal chest discomfort nonpleuritic. She also felt palpitations and some lightheadedness. It felt like her heart was fluttering. She has a history of paroxysmal A. fib and unsure if it felt like that or not. She had an aortic valve replacement earlier this year. She had an a sending aortic aneurysm repair 20 years ago. She is asymptomatic now after 2 nitroglycerin. No known history of coronary disease/stents, she had a stress test years ago at the last report. [facility] Medical History Aortic stenosis with bicuspid valve Ascending aortic aneurysm Esophageal reflux Head injuries History of gout History of venous thrombosis and embolism Hyperuricemia Hypothyroidism penitentiary current use of 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 Migraines Near syncope Paroxysmal atrial fibrillation Physical debility Seizure Seizure disorder Spinal stenosis Stage 3 chronic kidney disease Stage 4 chronic kidney disease Thoracic aortic aneurysm (TAA) Urine retention Home Medications allopurinol 100 mg tablet 100 mg PO DAILY GOUT #90 tabs 02/22/19 [History Last Taken Unknown] levothyroxine 100 mcg tablet 100 mcg PO DAILY THYROID #90 tabs 02/22/19 [History Last Taken 11/30/19 07:30 100 MCG] metoprolol succinate 25 mg tablet,extended release 24 hr 25 mg PO DAILY HEART #90 tabs 02/22/19 [History Last Taken 11/30/19 07:30 25 MG] omeprazole 40 mg capsule,delayed release 40 mg PO DAILY GERD #90 caps 02/22/19 [History Last Taken 11/30/19 07:30 40 MG] Cholecalciferol (Vitamin D3) [Vitamin D3] 2,000 unit PO DAILY SUPPLEMENT 11/27/19 [History Last Taken Unknown] flecainide 100 mg tablet 100 mg PO BID HEART 11/27/19 [History Last Taken 11/30/19 07:30 100 MG] magnesium oxide 400 mg PO DAILY SUPPLEMENT 11/27/19 [History Last Taken Unknown] acetaminophen 500 mg tablet 1,000 mg PO Q8 PRN pain 1-10 #1 TAB 12/14/19 [Rx Last Taken Unknown] nortriptyline 10 mg capsule 10 mg PO QHS #30 caps 12/14/19 [Rx Last Taken Unknown] warfarin 3 mg tablet 3 mg PO SUTUTHSA 09/24/20 [History Last Taken Unknown] levetiracetam 1,000 mg tablet (Keppra) 1,000 mg PO BID 06/06/21 [History Last Taken Unknown] oxybutynin chloride 5 mg tablet 5 mg PO BID 06/06/21 [History Last Taken Unknown] rosuvastatin 20 mg tablet (Crestor) 20 mg PO DAILY 06/06/21 [History Last Taken Unknown] duloxetine 30 mg capsule,delayed release 30 mg PO DAILY 09/12/21 [History Last Taken Unknown] hydrocodone-acetaminophen 5-325mg 5mg-325mg 1 tab PO DAILY 09/12/21 [History Last Taken Unknown] metaxalone 400 mg tablet 400 tablet PO BID 09/12/21 [History Last Taken Unknown] oxcarbazepine 150 mg tablet 150 mg PO BID 09/12/21 [History Last Taken Unknown] warfarin 2.5 mg tablet 2.5 mg PO MOWEFR 09/12/21 [History Last Taken Unknown] amlodipine 10 mg tablet 10 mg PO DAILY 09/22/21 [History Last Taken Unknown] Allergy/AdvReac Type Severity Reaction Status Date / Time celecoxib [From Celebrex] Allergy Severe Hives, Verified 11/15/21 00:13 swelling, difficulty breathing Sulfa (Sulfonamide Allergy Severe Hives, Verified 11/15/21 00:13 Antibiotics) swelling, difficulty breathing gemfibrozil AdvReac Intermediate Nausea,myal Verified 11/15/21 00:13 gias Family History Mother CVA (cerebral vascular accident) Breast cancer Hypertension CAD (coronary artery disease) Father Hypertension CAD (coronary artery disease) Surgical History Fracture of ankle, bimalleolar, left, closed H/O chest tube placement (05/07/01) History of bilateral breast reduction surgery (2008) History of left heart catheterization (12/07/15) History of loop recorder History of lumpectomy (2009) History of open reduction and internal fixation (ORIF) procedure (11/30/19) History of thumb surgery (2004) History of tilt table evaluation (05/21/16) History of total abdominal hysterectomy (1974) Hx of aortic valve replacement, mechanical (04/05/01) Hx of ascending aorta replacement (04/05/01) Social History Smoking Status: Never smoker ROS ROS ED Constitutional Constitutional ED: Denies chills or fever(s) Eyes Eyes: Denies change in vision or diplopia ENT ENT ED: Denies rhinorrhea or sore throat Cardiovascular Cardiovascular: Reports as per HPI, chest pain and palpitations Respiratory/Chest Respiratory/Chest: Denies cough or dyspnea Gastrointestinal Gastrointestinal: Denies abdominal pain, diarrhea, nausea or vomiting Genitourinary Genitourinary ED: Denies dysuria or hematuria Musculoskeletal Musculoskeletal: Denies back pain or neck pain Integumentary Denies abscess or rash Neurologic Neurologic: Denies headache(s), paresthesias or weakness Psychiatric Psychiatric: Denies anxiety or suicidal thoughts EXAM Physical Exam Const Vital Signs: 11/14/21 23:24 11/14/21 23:27 11/14/21 23:59 Temperature 97.1 F L Temperature Source Temporal Pulse Rate 66 Respiratory Rate 16 Respiratory Effort Normal Non-Labored Blood Pressure Blood Pressure Mean Pulse Ox 96 94 Oxygen Delivery Method Room Air Room Air 11/15/21 01:02 Temperature Temperature Source Pulse Rate 44 L Respiratory Rate 16 Respiratory Effort Blood Pressure 145/58 H Blood Pressure Mean 87 Pulse Ox 94 Oxygen Delivery Method Room Air Positive well nourished and well developed General Appearance ED: well developed and NAD HEENT Reports moist mucous membranes normocephalic and atraumatic Eyes PERRL and EOMs intact bilaterally Neck full ROM and supple Chest Wall inspection of chest normal and palpation of chest normal Resp normal respiratory effort and clear to auscultation bilaterally Cardio regular rate and regular rhythm Heart Sounds: click GI non-tender and non-distended Auscultation: normoactive bowel sounds Palpation: soft Back/Spine no CVA tenderness General Back: other FROM Extremity normal to inspection General Extremety ED: Negative for edema, pulses abnormal or tenderness General Extremity: Negative for edema or pulses abnormal Neuro oriented x3, CN's II-XII intact bilaterally and no sensory deficits noted Sensorium / Orientation: awake and alert Motor Exam: strength 5/5 throughout Skin no rashes or lesions noted and no wounds Heart Score History: Highly Suspicious ECG: Nonspecific Repolarization Age: >/= 65 years Risk Factors: 1 or 2 Risk Factors Troponin: </= Normal Limit Score: 6 MDM MDM MDM Narrative Medical decision making narrative: Patient states she has the [employer] mobile melody on her phone. When she was feeling poorly she did an EKG tracing. She showed it to me. It is difficult to interpret, the complexes are wide, the rhythm is undetermined, it is not tachycardic nor is it bradycardic. It looks different than her typical tracing that looks more typical of a left bundle branch block. Parts of the tracing tonight looked like a sine wave. In the emergency department she was monitored closely she had no recurrent symptoms. Her work-up is unremarkable at this time except for her chronic renal insufficiency and therapeutic INR 2.3. I am concerned about her syndrome enough to admit her to observation. Lab Data Attestation: I reviewed the patient's lab results. Labs: Laboratory Results - last 24 hr 11/14/21 11/14/21 11/14/21 23:30 23:30 23:30 WBC 9.4 RBC 3.91 L Hgb 11.8 L Hct 36.9 L MCV 94.4 MCH 30.2 MCHC 32.0 RDW Std Deviation 43.5 RDW Coeff of Pravin 12.6 Plt Count 317 MPV 10.4 Immature Gran % (Auto) 0.200 Neut % (Auto) 69.9 Lymph % (Auto) 18.5 L Wilcox % (Auto) 7.8 Eos % (Auto) 3.0 Baso % (Auto) 0.6 Absolute Neuts (auto) 6.6 Absolute Lymphs (auto) 1.74 Nucleated RBC % 0 PT 24.9 H INR 2.3 Sodium 142 Potassium 4.4 Chloride 108 H Carbon Dioxide 25.0 Anion Gap 9 BUN 31 H Creatinine 1.87 H Estim Creat Clear Calc 20.51 Est GFR (MDRD) Af Amer 33 L Est GFR (MDRD) Non-Af 28 L BUN/Creatinine Ratio 16.6 Glucose 112 H Calcium 9.4 Troponin I High Sens 18 Radiography Diagnostic Testing: Clinical Impression(s) from Imaging Studies Chest X-Ray 11/14/21 00:01 IMPRESSION: No active disease. Electronically Signed: Umesh Barrera MD at 0:17 EDT , Rhythm Strip Rhythm Strip: Sinus Rhythm Rate: 65 Ectopy: None EKG Initial EKG: Attestation: I personally reviewed and interpreted this EKG as follows: Interpretation: Atrial Fibrillation and LBBB Prior EKG tracings: available for review Prior: Unchanged Discharge Plan Triage Chief Complaint: Chest Pain ED Provider: Cole Ortiz Dx/Rx/DC Orders Clinical Impression: Chest pain, Hx of aortic valve replacement, mechanical, Paroxysmal atrial fibrillation, Warfarin-induced coagulopathy, Heart palpitations Prescriptions: No Action omeprazole 40 mg capsule,delayed release(DR/EC) 40 mg PO DAILY Qty: 90 metoprolol succinate 25 mg tablet extended release 24 hr 25 mg PO DAILY Qty: 90 allopurinol 100 mg tablet 100 mg PO DAILY Qty: 90 levothyroxine 100 mcg tablet 100 mcg PO DAILY Qty: 90 levetiracetam [Keppra] 1,000 mg tablet 1,000 mg PO BID oxybutynin chloride 5 mg tablet 5 mg PO BID Label Comments: take 1 tablet by mouth once daily rosuvastatin [Crestor] 20 mg tablet 20 mg PO DAILY amlodipine 10 mg tablet 10 mg PO DAILY duloxetine 30 mg capsule,delayed release(DR/EC) 30 mg PO DAILY oxcarbazepine 150 mg tablet 150 mg PO BID warfarin 2.5 mg tablet 2.5 mg PO MOWEFR Label Comments: take 1 tablet by mouth once daily hydrocodone-acetaminophen 5-325 mg tablet 1 tab PO DAILY Label Comments: take 1 tablet by mouth once daily for 28 DAYS metaxalone 400 mg tablet 400 tablet PO BID flecainide 100 MG tablet 100 mg PO BID magnesium oxide 400 MG capsule 400 mg PO DAILY Cholecalciferol (Vitamin D3) [Vitamin D3] 5,000 UNIT capsule 2,000 unit PO DAILY acetaminophen 500 MG tablet 1,000 mg PO Q8 PRN (Reason: pain 1-10) Qty: 1 0RF nortriptyline 10 MG capsule 10 mg PO QHS Qty: 30 0RF warfarin 3 MG tablet 3 mg PO SUTUTHSA Rx Instructions: Take 3 mg on M,W,TH,SAT and SUN and 4.5 mg (1 and a 1/2 tABS) TUES & FRI Primary Care Provider: Kishore Ricci Referrals: Kishore Ricci MD [Primary Care Provider] - Disposition Disposition: Acute Care Hospital [facility]
[2021-11-14 23:59] VITALS: O2SAT 94
[2021-11-15] VITALS (14 sets, daily range): BP systolic 145–189; BP diastolic 56–78; PULSE 38–59; RESP 16–18; TEMP 36.1–36.7; O2SAT 94–99; BMI 40.6
[2021-11-15 00:21] LABS: Absolute Lymphocyte Count 1.74 X10^3/uL (0.83-4.51); Absolute Neutrophil Count 6.6 X10^3/uL (2.0-7.7); Basophil# 0.06 X10^3/uL; Basophil% 0.6 % (0-1); Eosinophil# 0.28 X10^3/uL; Hematocrit 36.9 % (37-47); Hemoglobin 11.8 g/dL (12.0-15.0); Lymphocyte # 1.74 X10^3/ul (0.83-4.51); Lymphocyte % 18.5 % (19-41); Mean Corpuscular Hgb 30.2 pg (27.0-32.0); Mean Corpuscular Volume 94.4 fL (81-99); Mean Platelet Vol. 10.4 fl (6.2-12.0); Monocyte# 0.73 X10^3/uL; Monocyte% 7.8 % (0-10); NRBC Flagged by Analyzer 0 % (0-5); Neutrophil # 6.57 X10^3/uL (2.7-7.7); Neutrophil % 69.9 % (47-70); Platelet Count 317 K/mm3 (150-450); RBC Distribution Width CV 12.6 % (11.6-14.6); RBC Distribution Width SD 43.5 fl (35.1-43.9); Red Blood Count 3.91 M/mm3 (4.2-5.4); White Blood Count 9.4 K/mm3 (4.4-11.0)
[2021-11-15 00:25] LABS: International Normalized Ratio 2.3; Prothrombin Time (Protime)PT. 24.9 SECONDS (11.7-14.9)
[2021-11-15 00:42] LABS: Anion Gap 9 (5-15); BUN 31 mg/dL (7-18); BUN/Creat Ratio 16.6 RATIO (10-20); Calcium,Total 9.4 mg/dL (8.5-10.1); Chloride 108 mmol/L (98-107); Creatinine, Serum 1.87 mg/dL (0.55-1.02); EST Glomerular Filtration Rate 28 mL/min (>60); Est Glom Filt Rate - Afr Amer 33 mL/min (>60); Estimated Creatinine Clearance 20.51 ml/min; Glucose 112 mg/dL (74-106); Potassium 4.4 mmol/L (3.5-5.1); Sodium Level 142 mmol/L (136-145); Troponin-I HS (w/2H Reflex) 18 pg/mL (3.0-54.0)
--- NOTE | 2021-11-15 01:34 | HP.PCM.HOS_ITS ---
[facility] - General General Date of Admission: 11/15/21 Date of Service: 11/15/21 Chief Complaint: Chest pain HPI Narrative CHANNING CANCHOLA, is a 76 F with a significant history of paroxysmal atrial fibrillation; aortic aneurysm repair and metallic aortic valve replacements about 20 years ago; hypertension and a seizure disorder who presents to the emergency department with chest pain that started about 45 minutes prior to presentation. Initially her symptoms started with left sided jaw pain that moved to her right jaw. She then developed bilateral arm pain. She describes her bilateral arm pain as a feeling of heaviness. And then she developed chest pain. She described her chest pain as sharp. Her chest pain progressively worsened. Highest intensity of her chest pain was 10 out of 10. After second dose of nitroglycerin her pain improved from a 10 to a 6. Her pain eventually disappeared. Her symptoms started while in bed and doing exercises with her feet. Of note patient had left ankle fracture with plate and screw replacements 2 years ago and routinely she does exercises with her feet. At the time of her chest pain she had an EKG on cardiac mobile melody that showed some sinusoidal wave. She reported she is being followed up for abnormal rhythm and bradycardia. 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 Migraines Near syncope Paroxysmal atrial fibrillation Physical debility Seizure Seizure disorder Spinal stenosis Stage 3 chronic kidney disease Stage 4 chronic kidney disease Thoracic aortic aneurysm (TAA) Urine retention Home Medications allopurinol 100 mg tablet 100 mg PO DAILY GOUT #90 tabs 02/22/19 [History Last Taken Unknown] levothyroxine 100 mcg tablet 100 mcg PO DAILY THYROID #90 tabs 02/22/19 [History Last Taken 11/30/19 07:30 100 MCG] metoprolol succinate 25 mg tablet,extended release 24 hr 25 mg PO DAILY HEART #90 tabs 02/22/19 [History Last Taken 11/30/19 07:30 25 MG] omeprazole 40 mg capsule,delayed release 40 mg PO DAILY GERD #90 caps 02/22/19 [History Last Taken 11/30/19 07:30 40 MG] Cholecalciferol (Vitamin D3) [Vitamin D3] 2,000 unit PO DAILY SUPPLEMENT 11/27/19 [History Last Taken Unknown] flecainide 100 mg tablet 100 mg PO BID HEART 11/27/19 [History Last Taken 11/30/19 07:30 100 MG] magnesium oxide 400 mg PO DAILY SUPPLEMENT 11/27/19 [History Last Taken Unknown] acetaminophen 500 mg tablet 1,000 mg PO Q8 PRN pain 1-10 #1 TAB 12/14/19 [Rx Last Taken Unknown] nortriptyline 10 mg capsule 10 mg PO QHS #30 caps 12/14/19 [Rx Last Taken Unknown] warfarin 3 mg tablet 3 mg PO SUTUTHSA 09/24/20 [History Last Taken Unknown] levetiracetam 1,000 mg tablet (Keppra) 1,000 mg PO BID 06/06/21 [History Last Taken Unknown] oxybutynin chloride 5 mg tablet 5 mg PO BID 06/06/21 [History Last Taken Unknown] rosuvastatin 20 mg tablet (Crestor) 20 mg PO DAILY 06/06/21 [History Last Taken Unknown] duloxetine 30 mg capsule,delayed release 30 mg PO DAILY 09/12/21 [History Last Taken Unknown] hydrocodone-acetaminophen 5-325mg 5mg-325mg 1 tab PO DAILY 09/12/21 [History Last Taken Unknown] metaxalone 400 mg tablet 400 tablet PO BID 09/12/21 [History Last Taken Unknown] oxcarbazepine 150 mg tablet 150 mg PO BID 09/12/21 [History Last Taken Unknown] warfarin 2.5 mg tablet 2.5 mg PO MOWEFR 09/12/21 [History Last Taken Unknown] amlodipine 10 mg tablet 10 mg PO DAILY 09/22/21 [History Last Taken Unknown] Allergy/AdvReac Type Severity Reaction Status Date / Time celecoxib [From Celebrex] Allergy Severe Hives, Verified 11/15/21 00:13 swelling, difficulty breathing Sulfa (Sulfonamide Allergy Severe Hives, Verified 11/15/21 00:13 Antibiotics) swelling, difficulty breathing gemfibrozil AdvReac Intermediate Nausea,myal Verified 11/15/21 00:13 gias Family History Mother CVA (cerebral vascular accident) Breast cancer Hypertension CAD (coronary artery disease) Father Hypertension CAD (coronary artery disease) Surgical History Fracture of ankle, bimalleolar, left, closed H/O chest tube placement (05/07/01) History of bilateral breast reduction surgery (2008) History of left heart catheterization (12/07/15) History of loop recorder History of lumpectomy (2009) History of open reduction and internal fixation (ORIF) procedure (11/30/19) History of thumb surgery (2004) History of tilt table evaluation (05/21/16) History of total abdominal hysterectomy (1974) Hx of aortic valve replacement, mechanical (04/05/01) Hx of ascending aorta replacement (04/05/01) Social History Smoking Status: Never smoker ROS ROS Narrative Pertinent positives and pertinent negatives as noted in HPI. All other systems were reviewed and are negative Vital Signs Vital Signs Vital Signs: 11/14/21 23:24 11/14/21 23:27 11/14/21 23:59 Temperature 97.1 F L Temperature Source Temporal Pulse Rate 66 Respiratory Rate 16 Respiratory Effort Normal Non-Labored Blood Pressure Blood Pressure Mean Pulse Ox 96 94 Oxygen Delivery Method Room Air Room Air 11/15/21 01:02 Temperature Temperature Source Pulse Rate 44 L Respiratory Rate 16 Respiratory Effort Blood Pressure 145/58 H Blood Pressure Mean 87 Pulse Ox 94 Oxygen Delivery Method Room Air Weight Weight: 106 kg Body Mass Index (BMI) 41.3 Physical Exam Narrative Physical exam: General: Well-nourished, well-developed. Head: Normocephalic, atraumatic, no tenderness Eyes: Vision is grossly intact. EOMI ENT, no trauma, moist mucous membranes, no rhinorrhea Neck: Nontender, full range of motion, no spinal tenderness, deformities, step- off CVS: Irregularly irregular rate and rhythm. Bradycardia. Metallic click. Respiratory : clear to auscultation bilaterally, chest wall nontender, no wheezing Abdomen: Soft, nontender, nondistended, normal bowel sounds, no masses : Deferred Back: Nontender, no CVA tenderness, no midline spinal tenderness, deformities, step-offs Extremities: Nontender full range of motion, no trauma Skin: Normal color, no trauma, abrasions Neuro: Alert, oriented, cranial nerves II through XII grossly intact. Psychiatry: Normal mood. Normal affect. Not depressed. Not anxious. Results Lab / Micro Data Result Diagrams: 11/14/21 23:30 11/14/21 23:30 Labs: Laboratory Results - last 24 hr 11/14/21 23:30: WBC 9.4, RBC 3.91 L, Hgb 11.8 L, Hct 36.9 L, MCV 94.4, MCH 30.2, MCHC 32.0, RDW Std Deviation 43.5, RDW Coeff of Pravin 12.6, Plt Count 317, MPV 10.4, Immature Gran % (Auto) 0.200, Neut % (Auto) 69.9, Lymph % (Auto) 18.5 L, Otero % (Auto) 7.8, Eos % (Auto) 3.0, Baso % (Auto) 0.6, Absolute Neuts (auto) 6.6, Absolute Lymphs (auto) 1.74, Nucleated RBC % 0 11/14/21 23:30: Sodium 142, Potassium 4.4, Chloride 108 H, Carbon Dioxide 25.0, Anion Gap 9, BUN 31 H, Creatinine 1.87 H, Estim Creat Clear Calc 20.51, Est GFR (MDRD) Af Amer 33 L, Est GFR (MDRD) Non-Af 28 L, BUN/Creatinine Ratio 16.6, Glucose 112 H, Calcium 9.4, Troponin I High Sens 18 11/14/21 23:30: PT 24.9 H, INR 2.3 Rhythm Strip Rhythm Strip: Sinus Rhythm Rate: 65 Ectopy: None Radiology Impression Chest X-Ray 11/14/21 00:01 IMPRESSION: No active disease. Electronically Signed: Umesh Barrera MD at 0:17 EDT , Assessment & Plan Assessment/Plan (1) Chest pain: PLAN: Plan Chest pain Place on a monitored bed at PCU Actual CXR image was independently visualized. No acute cardiopulmonary process was noted. Actual EKG tracing was independently visualized. EKG tracing showed left bundle branch block. Old records reviewed showed EKG of atrial fibrillation and an of left bundle branch block. Patient Coumadin with therapeutic INR. Aspirin 162 mg given at the ED. ASA 81 mg p.o. daily ordered Morphine as needed for pain ordered We will check lipid panel. Statin: Atorvastatin 40 mg p.o. nightly continued High sensitive troponin of 18 on presentation. Trend. Stat EKG as needed for chest pain Chemical stress test in the AM if the cardiac enzymes are negative. With patient history of ankle surgery she is not a candidate for treadmill stress test. Summary of Holter monitor on 06/16/2021 was reviewed at 314 premature supraventricular ectopic isolated beats comprising of 0.2% of total QRS complexes was noted. 17 atrial couplets noted. No atrial fibrillation was noted at that time. Last echocardiogram on 09/12/2020 showed estimated ejection fraction of 63+5%. Indeterminate left ventricular diastolic dysfunction. Right ventricular systolic function was low normal. [employer] prosthetic aortic valve was noted. Repeat echocardiogram ordered. Hypertension Blood pressure is not within goal Amlodipine and metoprolol continued. As needed hydralazine ordered. Trend blood pressure and adjust blood pressure medications. Paroxysmal A. fib Patient with episodes of bradycardia on presentation. Per patient bradycardia is not new. Metoprolol continued. Coumadin continued as above. Placed on telemetry and progressive care unit. Seizure disorder Stable Keppra and oxcarbazepine continued. DVT prophylaxis: Not indicated as patient is therapeutic on Coumadin. Charges/Coding Visit Charges OBSV E&M: 10442 Initial observation care L3
[2021-11-15] MEDS: Aspirin 81 MG TAB.CHEW 162 MG PO (01:48)
[2021-11-15 02:01] LABS: Reflex Troponin-HS? (from REC) Y
[2021-11-15 02:39] LABS: Troponin-I HS 17 pg/mL (3.0-54.0)
--- NOTE | 2021-11-15 02:46 | ECHOD_ITS ---
Reason For Study: CHEST PAIN Procedure This was a 2D Doppler, Color Flow transthoracic echocardiogram. Exam performed in department. Left Ventricle Normal LV size. The estimated ejection fraction is 55 %. Unable to assess diastolic dysfunction. No regional wall motion abnormalities noted. Right Ventricle Normal RV size. Normal systolic function. Atria The left atrium is mildly enlarged. Normal right atrium. Normal atrial septum. Mitral Valve There is moderate to severe mitral annular calcification. There is no mitral valve stenosis. Trivial mitral valve insufficiency. Tricuspid Valve There is no tricuspid stenosis. Trivial tricuspid valve insufficiency. Unable to estimate RV systolic pressure due to insufficient tricuspid regurgitant envelope. Aortic Valve There is no aortic stenosis. No aortic valve insufficiency. Normal prosthetic aortic valve. Pulmonic Valve There is no pulmonic valvular stenosis. Trivial pulmonic valve insufficiency. Great Vessels Normal aortic root. Pericardium/Pleural No pericardial effusion. MMode/2D Measurements & Calculations LVIDd: 5.7 cm IVSd: 0.89 cm LVOT diam: 2.4 cm LVIDs: 3.7 cm LVPWd: 0.98 cm LVOT area: 4.4 cm2 RVDd: 3.3 cm FS: 35.5 % Ao root diam: 3.0 cm LAV(MOD-bp): 69.1 ml LA A4 area: 20.7 cm2 LAV(MOD-bp) Indexed: 33.7 ml/m2 LAV(MOD-sp2): 72.3 ml LAV(MOD-sp4): 66.0 ml LA dimension(2D): 4.5 cm RA A4 area: 18.0 cm2 Time Measurements MV dec time: 0.17 sec Doppler Measurements & Calculations MV E max joey: 76.0 cm/sec Lat Peak E' Joey: 7.9 cm/sec Med Peak E' Joey: 6.2 cm/sec MV A max joey: 74.1 cm/sec E/E' lat: 9.6 E/E' med: 12.2 MV E/A: 1.0 MV dec slope: 440.9 cm/sec2 PA V2 max: 84.9 cm/sec TR max joey: 250.2 cm/sec TR max P.1 mmHg ECHO/Echo Complete Interpretation Summary The estimated ejection fraction is 55 %. Unable to assess diastolic dysfunction. The left atrium is mildly enlarged. Trivial mitral valve insufficiency. Normal prosthetic aortic valve. Ordering Physician: Vahe Stein Referring Physician: Kishore Ricci Performed By: Anne Landrum, RAHEL, RVT
--- NOTE | 2021-11-15 02:46 | EKG12_ITS ---
Test Reason : CP Admission Blood Pressure : / mmHG Vent. Rate : 055 BPM Atrial Rate : 055 BPM P-R Int : 236 ms QRS Dur : 162 ms QT Int : 552 ms P-R-T Axes : 071 001 097 degrees QTc Int : 528 ms Sinus bradycardia with 1st degree A-V block Non-specific intra-ventricular conduction block Minimal voltage criteria for LVH, may be normal variant ( Inocencio product ) Abnormal ECG When compared with ECG of 14-NOV-2021 23:27, MANUAL COMPARISON REQUIRED, DATA IS UNCONFIRMED Confirmed by CHER CELAYA, BRIANA ([id number]), school photograph editor NOELLE MONTANEZ ([id number]) on 11/18/2021 9:25:25 AM Referred By: Sarita Confirmed By:TIFFANIE KWON MD
[2021-11-15] MEDS: 0.9% Saline Lock 10 ML Syringe IV (05:09)
[2021-11-15] MEDS: hydrALAZINE 20 MG/ML Vial 10 MG IV (05:09)
[2021-11-15 06:09] LABS: Absolute Lymphocyte Count 1.02 X10^3/uL (0.83-4.51); Absolute Neutrophil Count 4.7 X10^3/uL (2.0-7.7); Basophil# 0.04 X10^3/uL; Basophil% 0.6 % (0-1); Eosinophil# 0.22 X10^3/uL; Eosinophils% 3.4 % (0-5); Hematocrit 34.3 % (37-47); Hemoglobin 11.1 g/dL (12.0-15.0); Lymphocyte # 1.02 X10^3/ul (0.83-4.51); Lymphocyte % 15.9 % (19-41); Mean Corp Hgb Conc 32.4 g/dL (32-36); Mean Corpuscular Hgb 30.7 pg (27.0-32.0); Mean Platelet Vol. 10.1 fl (6.2-12.0); Monocyte# 0.46 X10^3/uL; Monocyte% 7.2 % (0-10); NRBC Flagged by Analyzer 0 % (0-5); Neutrophil # 4.67 X10^3/uL (2.7-7.7); Neutrophil % 72.7 % (47-70); Platelet Count 222 K/mm3 (150-450); RBC Distribution Width CV 12.4 % (11.6-14.6); RBC Distribution Width SD 43.5 fl (35.1-43.9); Red Blood Count 3.61 M/mm3 (4.2-5.4); White Blood Count 6.4 K/mm3 (4.4-11.0)
[2021-11-15 06:25] LABS: International Normalized Ratio 2.4
[2021-11-15] MEDS: Levothyroxine 100 MCG Tablet PO (06:35)
[2021-11-15] MEDS: Aspirin E.C. 81 MG Tablet PO (06:36)
[2021-11-15 06:37] LABS: Anion Gap 6 (5-15); BUN 30 mg/dL (7-18); Calcium,Total 8.7 mg/dL (8.5-10.1); Chloride 107 mmol/L (98-107); Cholesterol 161 mg/dL (200); Creatinine, Serum 1.58 mg/dL (0.55-1.02); EST Glomerular Filtration Rate 34 mL/min (>60); Est Glom Filt Rate - Afr Amer 41 mL/min (>60); Estimated Creatinine Clearance 24.27 ml/min; Glucose 92 mg/dL (74-106); High Density Lipoprotein 53 mg/dL; Potassium 4.4 mmol/L (3.5-5.1); Sodium Level 140 mmol/L (136-145); Triglycerides 188 mg/dL; Very Low Density Lipoprotein 38 mg/dL (5-40)
[2021-11-15 06:49] LABS: Troponin-I HS 20 pg/mL (3.0-54.0)
--- NOTE | 2021-11-15 07:55 | NURSING ---
patient left unit for a stress test
[2021-11-15] MEDS: Pantoprazole Sodium 40 MG Tablet PO (10:32)
[2021-11-15] MEDS: Magnesium Chloride 64 MG Delay Rel.Tablet 128 MG PO (10:33)
[2021-11-15] MEDS: Allopurinol 100 MG Tablet PO (10:33)
[2021-11-15] MEDS: levETIRAcetam 1,000 MG Tablet 1000 MG PO (10:34)
[2021-11-15] MEDS: Oxybutynin 5 MG Tablet PO (10:34)
[2021-11-15] MEDS: DULoxetine Hcl 30 MG Capsule PO (10:35)
[2021-11-15] MEDS: Cholecalciferol (VIT D3) 25 MCG TABLET (1,000 UNITS) 50 MCG PO (10:35)
[2021-11-15] MEDS: OXcarbazepine 150 MG Tablet PO (10:37)
[2021-11-15] MEDS: Metaxalone 800 MG Tablet 400 MG PO (10:37)
[2021-11-15] MEDS: amLODIPine 10 MG Tablet PO (10:38)
[2021-11-15] MEDS: Flecainide 100 MG Tablet PO (11:03)
[2021-11-15] MEDS: Metoprolol(XL)Succ 25 MG Tablet PO (12:54)
--- NOTE | 2021-11-15 13:13 | STRESSREP_ITS ---
Stress Test Report Date: 11/15/2021 Procedure: Pharmacologic stress nuclear imaging study Indications: Chest pain Consent: Per the patient Procedure: The patient underwent pharmacologic (Regadenoson) evaluation with a peak heart rate of 58 beats per minute (40%predicted maximal heart rate) and a peak blood pressure of 120/60 mmHg. The baseline ECG demonstrated sinus bradycardia. EKG during lexiscan infusion revealed no ischemic changes. EKG post infusion revealed no ischemic changes [There were no cardiac dysrhythmias pretest, during pharmacologic infusion, or recovery]. [There was no complaint of chest discomfort during pharmacologic infusion or recovery]. The examination was discontinued secondary to completion of protocol. Impression: 1. Lexiscan stress test test is negative for Lexiscan infusion induced EKG changes of ischemia. 2. Lexiscan stress test test is negative for Lexiscan infusion induced chest pain. 3. Results of the nuclear portion of the test is as below Myocardial perfusion imaging study: Technique: The patient was injected with 13.5 millicuries of technetium 99m Cardiolite and subsequently rest SPECT Cardiolite nuclear imaging was obtained in the horizontal long, vertical long, and short axis views. The patient underwent pharmacologic [Regadenoson 0.4mg] evaluation. Please see above for details. The patient was injected with 40.5 millicuries of technetium 99m Cardiolite and subsequently stress SPECT Cardiolite nuclear imaging was obtained in the horizontal long, vertical long, and short axis views. A gated Cardiolite study at peak stress was obtained. Interpretation: Rest and stress SPECT Cardiolite nuclear imaging status post realignment, normalization, and attenuation correction demonstrate no evidence of significant ischemia or infarction. Gated images reveal no significant regional wall motion abnormalities. The reported LVEF is 68%. Impression: 1. There is no evidence of significant ischemia or infarction. 2. Estimated ejection fraction is 68%. This note was generated with [employer] software. It may contain incorrect words, spelling, and punctuation that were not noted in checking the note before signing.
--- NOTE | 2021-11-15 14:12 | DS.PCM_ITS ---
Providers Date of Admission: 11/15/21 Primary Care Physician: Dr. Kishore Ricci MD Reason For Visit: CHEST PAIN Diagnosis Discharge Diagnosis (1) Chest pain: Status: Acute Code(s): R07.9 - Chest pain, unspecified Medications at Discharge Home Medications allopurinol 100 mg tablet 100 mg PO DAILY GOUT #90 tabs 02/22/19 levothyroxine 100 mcg tablet 100 mcg PO DAILY THYROID #90 tabs 02/22/19 metoprolol succinate 25 mg tablet,extended release 24 hr 25 mg PO DAILY HEART #90 tabs 02/22/19 omeprazole 40 mg capsule,delayed release 40 mg PO DAILY GERD #90 caps 02/22/19 Cholecalciferol (Vitamin D3) [Vitamin D3] 2,000 unit PO DAILY SUPPLEMENT 11/27/19 flecainide 100 mg tablet 100 mg PO BID HEART 11/27/19 magnesium oxide 400 mg PO DAILY SUPPLEMENT 11/27/19 acetaminophen 500 mg tablet 1,000 mg PO Q8 PRN pain 1-10 #1 TAB 12/14/19 nortriptyline 10 mg capsule 10 mg PO QHS #30 caps 12/14/19 warfarin 3 mg tablet 3 mg PO SUTUTHSA 09/24/20 levetiracetam 1,000 mg tablet (Keppra) 1,000 mg PO BID 06/06/21 oxybutynin chloride 5 mg tablet 5 mg PO BID 06/06/21 rosuvastatin 20 mg tablet (Crestor) 20 mg PO DAILY 06/06/21 duloxetine 30 mg capsule,delayed release 30 mg PO DAILY 09/12/21 hydrocodone-acetaminophen 5-325mg 5mg-325mg 1 tab PO DAILY 09/12/21 metaxalone 400 mg tablet 400 tablet PO BID 09/12/21 oxcarbazepine 150 mg tablet 150 mg PO BID 09/12/21 warfarin 2.5 mg tablet 2.5 mg PO MOWEFR 09/12/21 amlodipine 10 mg tablet 10 mg PO DAILY 09/22/21 Hospital Course Operations None Procedures 2-D Echocardiogram and Stress test Summary of Care Provided Minutes Spent on Discharge: 37 Hospital Course: Per HPI: CHANNING CANCHOLA, is a 76 F with a significant history of paroxysmal atrial fibrillation; aortic aneurysm repair and metallic aortic valve replacements about 20 years ago; hypertension and a seizure disorder who presents to the emergency department with chest pain that started about 45 minutes prior to presentation.? Initially her symptoms started with left sided jaw pain that moved to her right jaw.? She then developed bilateral arm pain.? She describes her bilateral arm pain as a feeling of heaviness.? And then she developed chest pain.? She described her chest pain as sharp.? Her chest pain p rogressively worsened.? Highest intensity of her chest pain was 10 out of 10.? After second dose of nitroglycerin her pain improved from a 10 to a 6.? Her pain eventually disappeared. Her symptoms started while in bed and doing exercises with her feet.? Of note patient had left ankle fracture with plate and screw replacements 2 years ago and routinely she does exercises with her feet. At the time of her chest pain she had an EKG on cardiac mobile melody that showed some sinusoidal wave. She reported she is being followed up for abnormal rhythm and bradycardia. Hospital Course: 1. Chest pain/history of aortic valve replacement and ascending aorta replacement/paroxysmal fib/HTN HLD?76-year-old female with significant cardiac history presents to the hospital with chest pain. EKGs were nonischemic but she does have some chronic bradycardia secondary to flecainide and metoprolol, her bradycardia is asymptomatic. She underwent an echo which was unremarkable from baseline and her stress test was also normal. She states that her chest pain has completely resolved. She denies any shortness of breath and would like to go home today. Troponins were also unremarkable. I discussed with her and her daughters the plan for discharge today and expressed understanding Jazz of is going home and would like to go home today. I recommend that she follow-up with her PCP in 1 week and with her clinical team lead in a month or 2. No changes were made to her medications. 2. Anxiety depression, seizure disorder, hypothyroidism, GERD and are all chronic medical conditions which complicate her care. Her home medications were continued where appropriate Physical Exam Narrative General: Alert, Oriented x3, Cooperative, No apparent distress HEENT: Atraumatic, PERRLA, EOMI, Normocephalic Oral: Moist Mucosa Neck: Supple, No JVD Lungs: Clear to auscultation, Normal air movement, No rhonchi, No wheeze, No rales Cardiovascular: Bradycardic, regular rhythm, Normal S1, Normal S2, No murmurs, valve click Abdomen: Soft, Non Tender, Non-Distended, No Hepato-splenomegaly Extremities: No edema, Capillary Refill Less than 3 Seconds Skin: No rashes, No breakdown Musculoskeletal: No Tenderness to Palpation of Joints or Extremities Neurological: Cranial nerves II-XII grossly intact, Motor Exam 5/5 strength throughout, Sensory exam intact to light touch and pain Psych/Mental Status: Normal Affect, Appropriate Weight / BMI Weight Weight: 229 lb 8.019 oz Body Mass Index (BMI) 40.6 ABG / Lab / Microbiology Data Result Diagrams: 11/15/21 05:25 11/15/21 05:25 Laboratory: Laboratory Results - last 24 hr 11/14/21 23:30: WBC 9.4, RBC 3.91 L, Hgb 11.8 L, Hct 36.9 L, MCV 94.4, MCH 30.2, MCHC 32.0, RDW Std Deviation 43.5, RDW Coeff of Pravin 12.6, Plt Count 317, MPV 10.4, Immature Gran % (Auto) 0.200, Neut % (Auto) 69.9, Lymph % (Auto) 18.5 L, Mccracken % (Auto) 7.8, Eos % (Auto) 3.0, Baso % (Auto) 0.6, Absolute Neuts (auto) 6.6, Absolute Lymphs (auto) 1.74, Nucleated RBC % 0 11/14/21 23:30: Sodium 142, Potassium 4.4, Chloride 108 H, Carbon Dioxide 25.0, Anion Gap 9, BUN 31 H, Creatinine 1.87 H, Estim Creat Clear Calc 20.51, Est GFR (MDRD) Af Amer 33 L, Est GFR (MDRD) Non-Af 28 L, BUN/Creatinine Ratio 16.6, Glucose 112 H, Calcium 9.4, Troponin I High Sens 18 11/14/21 23:30: PT 24.9 H, INR 2.3 11/15/21 02:15: Troponin I High Sens 17 11/15/21 05:25: WBC 6.4, RBC 3.61 L, Hgb 11.1 L, Hct 34.3 L, MCV 95.0, MCH 30.7, MCHC 32.4, RDW Std Deviation 43.5, RDW Coeff of Pravin 12.4, Plt Count 222, MPV 10.1, Immature Gran % (Auto) 0.200, Neut % (Auto) 72.7 H, Lymph % (Auto) 15.9 L, Mccracken % (Auto) 7.2, Eos % (Auto) 3.4, Baso % (Auto) 0.6, Absolute Neuts (auto) 4.7, Absolute Lymphs (auto) 1.02, Nucleated RBC % 0 11/15/21 05:25: Sodium 140, Potassium 4.4, Chloride 107, Carbon Dioxide 27.0, Anion Gap 6, BUN 30 H, Creatinine 1.58 H, Estim Creat Clear Calc 24.27, Est GFR (MDRD) Af Amer 41 L, Est GFR (MDRD) Non-Af 34 L, BUN/Creatinine Ratio 19.0, Glucose 92, Calcium 8.7, Triglycerides 188, Cholesterol 161, LDL Cholesterol 70, VLDL Cholesterol 38, HDL Cholesterol 53 11/15/21 05:25: PT 26.0 H, INR 2.4 11/15/21 05:25: Troponin I High Sens 20 Radiography Diagnostic Testing: Radiology Impression Chest X-Ray 11/14/21 00:01 IMPRESSION: No active disease. Electronically Signed: Umesh Barrera MD at 0:17 EDT , Echocardiogram 11/15/21 02:46 Interpretation Summary The estimated ejection fraction is 55 %. Unable to assess diastolic dysfunction. The left atrium is mildly enlarged. Trivial mitral valve insufficiency. Normal prosthetic aortic valve. Ordering Physician: Vahe Stein Referring Physician: Kishore Ricci Performed By: Anne Landrum, RDCS, RVT D/C Instructions Discharge Diet: Low fat / Low cholesterol Call your doctor if you observe: Fever of 101 or Higher, Shortness of breath, Dizziness, Fainting spells, Swelling in the ankles, Chest pain and Increased palpitations (irregular heartbeat) Meaningful Use Info Meaningful Use Diagnoses (Choose all that apply): None applicable Discharge Plan Admission Admit Date/Time: 11/15/21 01:23 Attending Provider: Raheem Vazquez Primary Care Provider: Kishore Ricci Consulting Providers: Vahe Stein Discharge Orders/Prescriptions Prescriptions: Continued omeprazole 40 mg capsule,delayed release(DR/EC) 40 mg PO DAILY Qty: 90 metoprolol succinate 25 mg tablet extended release 24 hr 25 mg PO DAILY Qty: 90 allopurinol 100 mg tablet 100 mg PO DAILY Qty: 90 levothyroxine 100 mcg tablet 100 mcg PO DAILY Qty: 90 levetiracetam [Keppra] 1,000 mg tablet 1,000 mg PO BID oxybutynin chloride 5 mg tablet 5 mg PO BID Label Comments: take 1 tablet by mouth once daily rosuvastatin [Crestor] 20 mg tablet 20 mg PO DAILY amlodipine 10 mg tablet 10 mg PO DAILY duloxetine 30 mg capsule,delayed release(DR/EC) 30 mg PO DAILY oxcarbazepine 150 mg tablet 150 mg PO BID warfarin 2.5 mg tablet 2.5 mg PO MOWEFR Label Comments: take 1 tablet by mouth once daily hydrocodone-acetaminophen 5-325 mg tablet 1 tab PO DAILY Label Comments: take 1 tablet by mouth once daily for 28 DAYS metaxalone 400 mg tablet 400 tablet PO BID flecainide 100 MG tablet 100 mg PO BID magnesium oxide 400 MG capsule 400 mg PO DAILY Cholecalciferol (Vitamin D3) [Vitamin D3] 5,000 UNIT capsule 2,000 unit PO DAILY acetaminophen 500 MG tablet 1,000 mg PO Q8 PRN (Reason: pain 1-10) Qty: 1 0RF nortriptyline 10 MG capsule 10 mg PO QHS Qty: 30 0RF warfarin 3 MG tablet 3 mg PO SUTUTHSA Rx Instructions: Take 3 mg on M,W,TH,SAT and SUN and 4.5 mg (1 and a 1/2 tABS) TUES & FRI Referrals / Follow Up: Gabriel Leblanc MD [Med Staff - Active Staff] - Within 1 Month Kishore Ricci MD [Primary Care Provider] - Within 1 Week Disposition Disposition (needs filled in before D/C Order can be placed): Home, Self Care Charges/Coding Visit Charges OBSV E&M: 30659 Observ/hosp same date L2
== END 2021-11-15 14:12 | disposition home or self-care (01) ==
LOC: ED 11-15 01:28 → PCU 11-15 01:42
PROVIDERS: Admitting Provider Hospitalist; Emergency Provider Emergency Medicine; PCP Family Medicine; Visit Provider Family Medicine
DX: R07.89 Other chest pain (principal); N18.4 Chronic kidney disease, stage 4 (severe); I48.0 Paroxysmal atrial fibrillation; G40.909 Epilepsy, unspecified, not intractable, without status epilepticus; Z95.2 Presence of prosthetic heart valve; R68.84 Jaw pain; R00.2 Palpitations; M79.601 Pain in right arm; E03.9 Hypothyroidism, unspecified; R00.1 Bradycardia, unspecified; M10.9 Gout, unspecified; M79.602 Pain in left arm; K21.9 Gastro-esophageal reflux disease without esophagitis; I12.9 Hypertensive chronic kidney disease with stage 1 through stage 4 chronic kidney disease, or unspecified chronic kidney disease; Z79.899 Other long term (current) drug therapy; Z79.890 Hormone replacement therapy; Z79.01 Long term (current) use of 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s
CPT/HCPCS: 36415; 71045; 78452; 80048; 80061; 84484; 85025; 85610; 93005; 93017; 93306; 96374; 99218; 99285; A9500; A4216; G0378; J2785

== ENCOUNTER → 2021-12-02 | Outpatient (CLI) | payer MEDICARE, OTHER, SELFPAY | END | disposition home or self-care (01) | LOC: PSN 12:31 | PROVIDERS: PCP Family Medicine; Referring Provider Nurse Practitioner Gerontology; Visit Provider Nurse Practitioner Gerontology | DX: I49.8 Other specified cardiac arrhythmias (principal); R55 Syncope and collapse | CPT/HCPCS: 93225; 93226 ==

== ENCOUNTER → 2022-01-05 | Outpatient (CLI) | payer MEDICARE, OTHER, SELFPAY ==
[2022-01-05 11:01] LABS: Prothrombin Time Fingerstick 23.4 SEC (11.7-14.9)
== END | disposition home or self-care (01) ==
LOC: LAB 09:54
PROVIDERS: PCP Family Medicine; Visit Provider Family Medicine
DX: I71.20 Thoracic aortic aneurysm, without rupture, unspecified (principal); Z79.01 Long term (current) use of 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s
CPT/HCPCS: 36416; 85610

== ENCOUNTER → 2022-01-12 | Outpatient (CLI) | payer MEDICARE, OTHER, SELFPAY ==
[2022-01-12 11:05] LABS: INR Fingerstick 2.4; Prothrombin Time Fingerstick 27.7 SEC (11.7-14.9)
== END | disposition home or self-care (01) ==
LOC: LAB 09:29
PROVIDERS: PCP Family Medicine; Visit Provider Family Medicine
DX: I71.20 Thoracic aortic aneurysm, without rupture, unspecified (principal)
CPT/HCPCS: 36416; 85610

== ENCOUNTER → 2022-01-29 | Outpatient (CLI) | payer MEDICARE, OTHER, SELFPAY ==
[2022-01-29 10:47] LABS: Absolute Lymphocyte Count 1.18 X10^3/uL (0.83-4.51); Basophil# 0.05 X10^3/uL; Basophil% 0.5 % (0-1); Eosinophil# 0.31 X10^3/uL; Hematocrit 37.9 % (37-47); Hemoglobin 12.4 g/dL (12.0-15.0); Lymphocyte # 1.18 X10^3/ul (0.83-4.51); Lymphocyte % 11.6 % (19-41); Mean Corp Hgb Conc 32.7 g/dL (32-36); Mean Corpuscular Hgb 30.8 pg (27.0-32.0); Mean Platelet Vol. 9.3 fl (6.2-12.0); Monocyte# 0.62 X10^3/uL; Monocyte% 6.1 % (0-10); NRBC Flagged by Analyzer 0 % (0-5); Neutrophil # 7.99 X10^3/uL (2.7-7.7); Neutrophil % 78.6 % (47-70); Platelet Count 275 K/mm3 (150-450); RBC Distribution Width CV 13.4 % (11.6-14.6); RBC Distribution Width SD 46.1 fl (35.1-43.9); Red Blood Count 4.03 M/mm3 (4.2-5.4); White Blood Count 10.2 K/mm3 (4.4-11.0)
[2022-01-29 11:38] LABS: ALB/GLOB Ratio 1.2 RATIO (0.9-2.4); AST(SGOT) 13 U/L (15-37); Alanine Aminotransfer ALT/SGPT 21 U/L (13-56); Albumin, Serum 3.9 g/dL (3.2-5.0); Alkaline Phosphatase 87 U/L (45-117); Anion Gap 7 (5-15); BUN 30 mg/dL (7-18); BUN/Creat Ratio 20.8 RATIO (10-20); Calcium,Total 9.5 mg/dL (8.5-10.1); Chloride 107 mmol/L (98-107); Creatinine, Serum 1.44 mg/dL (0.55-1.02); EST Glomerular Filtration Rate 37 mL/min (>60); Est Glom Filt Rate - Afr Amer 45 mL/min (>60); Globulin 3.2 g/dL (2.2-4.2); Glucose 102 mg/dL (74-106); Potassium 4.3 mmol/L (3.5-5.1); Protein, Total 7.1 g/dL (6.4-8.2); Sodium Level 141 mmol/L (136-145)
[2022-02-02 16:59] LABS: Trileptal-Oxcarbazepine 5 ug/mL (10-35)
== END | disposition home or self-care (01) ==
LOC: LAB 10:34
PROVIDERS: PCP Family Medicine; Referring Provider Physician Assistant; Visit Provider Physician Assistant
DX: G40.909 Epilepsy, unspecified, not intractable, without status epilepticus (principal)
CPT/HCPCS: 36415; 80053; 82542; 85025

== ENCOUNTER → 2022-02-10 | Outpatient (CLI) | payer MEDICARE, OTHER, SELFPAY ==
[2022-02-10 12:14] LABS: INR Fingerstick 2.1; Prothrombin Time Fingerstick 24.4 SEC (11.7-14.9)
== END | disposition home or self-care (01) ==
LOC: LAB 09:01
PROVIDERS: PCP Family Medicine; Visit Provider Family Medicine
DX: I71.20 Thoracic aortic aneurysm, without rupture, unspecified (principal)
CPT/HCPCS: 36416; 85610

== ENCOUNTER → 2022-02-16 | Outpatient (CLI) | payer MEDICARE, OTHER, SELFPAY ==
[2022-02-16 10:56] LABS: INR Fingerstick 2.1; Prothrombin Time Fingerstick 25.2 SEC (11.7-14.9)
== END | disposition home or self-care (01) ==
LOC: LAB 09:55
PROVIDERS: PCP Family Medicine; Referring Provider Family Medicine; Visit Provider Family Medicine
DX: I71.20 Thoracic aortic aneurysm, without rupture, unspecified (principal)
CPT/HCPCS: 36416; 85610

== ENCOUNTER → 2022-03-04 | Outpatient (CLI) | payer MEDICARE, OTHER, SELFPAY ==
[2022-03-04 09:51] LABS: INR Fingerstick 2.9; Prothrombin Time Fingerstick 33.4 SEC (11.7-14.9)
== END | disposition home or self-care (01) ==
LOC: LAB 08:19
PROVIDERS: PCP Family Medicine; Visit Provider Family Medicine
DX: I71.20 Thoracic aortic aneurysm, without rupture, unspecified (principal)
CPT/HCPCS: 36416; 85610

== ENCOUNTER → 2022-04-02 | Outpatient (CLI) | payer MEDICARE, OTHER, SELFPAY ==
[2022-04-02 11:20] LABS: INR Fingerstick 3.2; Prothrombin Time Fingerstick 35.9 SEC (11.7-14.9)
== END | disposition home or self-care (01) ==
LOC: LAB 09:10
PROVIDERS: PCP Family Medicine; Referring Provider Family Medicine; Visit Provider Family Medicine
DX: I71.20 Thoracic aortic aneurysm, without rupture, unspecified (principal)
CPT/HCPCS: 36416; 85610

== ENCOUNTER → 2022-05-01 | Outpatient (CLI) | payer MEDICARE, OTHER, SELFPAY ==
[2022-05-01 11:09] LABS: Absolute Lymphocyte Count 0.74 X10^3/uL (0.83-4.51); Absolute Neutrophil Count 4.3 X10^3/uL (2.0-7.7); Basophil# 0.02 X10^3/uL; Basophil% 0.3 % (0-1); Eosinophil# 0.32 X10^3/uL; Eosinophils% 5.4 % (0-5); Hematocrit 32.8 % (37-47); Hemoglobin 10.8 g/dL (12.0-15.0); Lymphocyte # 0.74 X10^3/ul (0.83-4.51); Lymphocyte % 12.4 % (19-41); Mean Corp Hgb Conc 32.9 g/dL (32-36); Mean Corpuscular Hgb 31.1 pg (27.0-32.0); Mean Corpuscular Volume 94.5 fL (81-99); Mean Platelet Vol. 9.5 fl (6.2-12.0); Monocyte% 10.1 % (0-10); NRBC Flagged by Analyzer 0 % (0-5); Neutrophil # 4.26 X10^3/uL (2.7-7.7); Neutrophil % 71.5 % (47-70); Platelet Count 252 K/mm3 (150-450); RBC Distribution Width CV 13.3 % (11.6-14.6); RBC Distribution Width SD 45.7 fl (35.1-43.9); Red Blood Count 3.47 M/mm3 (4.2-5.4)
[2022-05-01 11:23] LABS: International Normalized Ratio 4.8; Prothrombin Time (Protime)PT. 44.6 SECONDS (11.7-14.9)
[2022-05-01 11:48] LABS: ALB/GLOB Ratio 1.1 RATIO (0.9-2.4); AST(SGOT) 14 U/L (15-37); Alanine Aminotransfer ALT/SGPT 17 U/L (13-56); Albumin, Serum 3.2 g/dL (3.2-5.0); Alkaline Phosphatase 71 U/L (45-117); Anion Gap 7 (5-15); BUN 29 mg/dL (7-18); BUN/Creat Ratio 23.6 RATIO (10-20); Calcium,Total 8.6 mg/dL (8.5-10.1); Chloride 110 mmol/L (98-107); Creatinine, Serum 1.23 mg/dL (0.55-1.02); EST Glomerular Filtration Rate 45 mL/min (>60); Est Glom Filt Rate - Afr Amer 54 mL/min (>60); Globulin 2.8 g/dL (2.2-4.2); Glucose 87 mg/dL (74-106); Potassium 3.3 mmol/L (3.5-5.1); Sodium Level 143 mmol/L (136-145)
[2022-05-05 20:54] LABS: Trileptal-Oxcarbazepine 6 ug/mL (10-35)
== END | disposition home or self-care (01) ==
PROVIDERS: Referring Provider Family Medicine; Visit Provider Psychiatry & Neurology Neurology
DX: G40.909 Epilepsy, unspecified, not intractable, without status epilepticus (principal); I71.20 Thoracic aortic aneurysm, without rupture, unspecified
CPT/HCPCS: 36415; 80053; 82542; 85025; 85610

== ENCOUNTER → 2022-05-04 | Outpatient (CLI) | payer MEDICARE, OTHER, SELFPAY ==
[2022-05-04 10:26] LABS: INR Fingerstick 2.4; Prothrombin Time Fingerstick 28.2 SEC (11.7-14.9)
== END | disposition home or self-care (01) ==
LOC: LAB 09:08
PROVIDERS: PCP Family Medicine; Referring Provider Family Medicine; Visit Provider Family Medicine
DX: I71.20 Thoracic aortic aneurysm, without rupture, unspecified (principal)
CPT/HCPCS: 36416; 85610

== ENCOUNTER → 2022-05-08 | Outpatient (CLI) | payer MEDICARE, OTHER, SELFPAY ==
[2022-05-08 10:28] LABS: PTHIN 92.9 pg/mL (18.4-80.1)
[2022-05-08 10:32] LABS: Vitamin D,25 Hydroxy 44.8 ng/mL
[2022-05-08 10:41] LABS: ALB/GLOB Ratio 1.2 RATIO (0.9-2.4); AST(SGOT) 12 U/L (15-37); Alanine Aminotransfer ALT/SGPT 16 U/L (13-56); Albumin, Serum 3.4 g/dL (3.2-5.0); Alkaline Phosphatase 69 U/L (45-117); Anion Gap 7 (5-15); BUN 19 mg/dL (7-18); BUN/Creat Ratio 15.7 RATIO (10-20); Calcium,Total 8.9 mg/dL (8.5-10.1); Chloride 110 mmol/L (98-107); Creatinine, Serum 1.21 mg/dL (0.55-1.02); EST Glomerular Filtration Rate 46 mL/min (>60); Est Glom Filt Rate - Afr Amer 55 mL/min (>60); Globulin 2.8 g/dL (2.2-4.2); Glucose 102 mg/dL (74-106); Potassium 3.7 mmol/L (3.5-5.1); Protein, Total 6.2 g/dL (6.4-8.2); Sodium Level 143 mmol/L (136-145); T4 Free Direct 0.88 ng/dL (0.76-1.46); Thyroid Stim Hormone (TSH) 2.91 uIU/mL (0.358-3.74)
[2022-05-08 10:42] LABS: International Normalized Ratio 2.1; Prothrombin Time (Protime)PT. 22.8 SECONDS (11.7-14.9)
== END | disposition home or self-care (01) ==
LOC: LAB 09:09
PROVIDERS: Family Medicine; Internal Medicine Endocrinology, Diabetes & Metabolism; PCP Family Medicine; Visit Provider Family Medicine
DX: I71.20 Thoracic aortic aneurysm, without rupture, unspecified (principal); I48.0 Paroxysmal atrial fibrillation; E21.3 Hyperparathyroidism, unspecified; E55.9 Vitamin D deficiency, unspecified; E03.9 Hypothyroidism, unspecified
CPT/HCPCS: 36415; 80053; 82306; 83970; 84439; 84443; 85610

== ENCOUNTER → 2022-05-11 | Outpatient (CLI) | payer MEDICARE, OTHER, SELFPAY ==
--- NOTE | 2022-05-11 15:39 | US_ITS ---
INDICATION: CKD, STAGE 4 EXAMINATION: Ultrasound US Kidney(s) complete (eg, kidneys and bladder) TECHNIQUE: Baker scale and color doppler images were obtained of the kidneys. COMPARISON: 12/04/2019 FINDINGS: RIGHT KIDNEY: 9.7 x 4.3 x 4.9 cm. Diffuse parenchymal thinning. There is no hydronephrosis. 1.3 x 1 x 0.9 cm mid renal cyst. LEFT KIDNEY: 11 x 4.5 x 6 cm. There is no hydronephrosis. Diffuse parenchymal thinning. 3 cysts measure up to 1.2 cm. No shadowing calculus, focal lesion or perinephric collection is demonstrated. URINARY BLADDER: 5 mm wall thickness. Both ureter jets visualized. US/Kidney and Bladder IMPRESSION: Bilateral renal parenchymal thinning, similar to 12/04/2019. Small bilateral renal cysts. Electronically Signed: Kishore Crabtree MD at 18:44 EST ,
== END | disposition home or self-care (01) ==
PROVIDERS: PCP Family Medicine; Visit Provider Internal Medicine Nephrology
DX: N18.4 Chronic kidney disease, stage 4 (severe) (principal)
CPT/HCPCS: 76770

== ENCOUNTER → 2022-05-15 | Outpatient (CLI) | payer MEDICARE, OTHER, SELFPAY ==
[2022-05-15 10:15] LABS: INR Fingerstick 2.5; Prothrombin Time Fingerstick 29.1 SEC (11.7-14.9)
== END | disposition home or self-care (01) ==
PROVIDERS: PCP Family Medicine; Visit Provider Family Medicine
DX: I71.20 Thoracic aortic aneurysm, without rupture, unspecified (principal)
CPT/HCPCS: 36416; 85610

== ENCOUNTER → 2022-05-29 | Outpatient (CLI) | payer MEDICARE, OTHER, SELFPAY ==
[2022-05-29 09:46] LABS: INR Fingerstick 4.1; Prothrombin Time Fingerstick 43.3 SEC (11.7-14.9)
[2022-05-29 10:11] LABS: International Normalized Ratio 3.8
--- NOTE | 2022-05-29 13:46 | RAD_ITS ---
STUDY: X-RAY - LEFT SHOULDER REASON FOR EXAM: Female, 77 years old. Pain, decreased range of motion TECHNIQUE: 4 view(s) of the shoulder. COMPARISON: None. FINDINGS: There is moderate degenerative arthrosis of the glenohumeral articulation. There is degenerative arthrosis of the acromioclavicular joint without inferior osseous spur formation. Normal acromion. Normal humeral head and visualized proximal humerus. The soft tissue structures are unremarkable. Normal visualized pulmonary apex. RAD/Shoulder min 2 Views IMPRESSION: Degenerative arthrosis Electronically Signed: Rubén Chawla MD at 14:11 EDT ,
== END | disposition home or self-care (01) ==
PROVIDERS: PCP Family Medicine; Referring Provider Internal Medicine Cardiovascular Disease; Visit Provider Internal Medicine Cardiovascular Disease
DX: M25.512 Pain in left shoulder (principal); Z95.2 Presence of prosthetic heart valve
CPT/HCPCS: 36416; 73030; 85610

== ENCOUNTER → 2022-06-12 | Outpatient (CLI) | payer MEDICARE, OTHER, SELFPAY ==
[2022-06-12 09:30] LABS: INR Fingerstick 2.3; Prothrombin Time Fingerstick 25.4 SEC (11.7-14.9)
== END | disposition home or self-care (01) ==
LOC: LAB 07:37
PROVIDERS: PCP Family Medicine; Visit Provider Internal Medicine Cardiovascular Disease
DX: Z95.2 Presence of prosthetic heart valve (principal)
CPT/HCPCS: 36416; 85610

== ENCOUNTER → 2022-06-26 | Outpatient (CLI) | payer MEDICARE, OTHER, SELFPAY ==
[2022-06-26 09:50] LABS: INR Fingerstick 2.3; Prothrombin Time Fingerstick 25.3 SEC (11.7-14.9)
== END | disposition home or self-care (01) ==
LOC: LAB 08:31
PROVIDERS: PCP Family Medicine; Visit Provider Internal Medicine Cardiovascular Disease
DX: Z95.2 Presence of prosthetic heart valve (principal)
CPT/HCPCS: 36416; 85610

== ENCOUNTER → 2022-07-10 | Outpatient (CLI) | payer MEDICARE, OTHER, SELFPAY ==
[2022-07-10 10:21] LABS: INR Fingerstick 1.7; Prothrombin Time Fingerstick 18.9 SEC (11.7-14.9)
== END | disposition home or self-care (01) ==
LOC: LAB 09:15
PROVIDERS: PCP Family Medicine; Visit Provider Internal Medicine Cardiovascular Disease
DX: Z95.2 Presence of prosthetic heart valve (principal)
CPT/HCPCS: 36416; 85610

== ENCOUNTER → 2022-07-22 | Outpatient (CLI) | payer MEDICARE, OTHER, SELFPAY ==
[2022-07-22 11:31] LABS: INR Fingerstick 2.2; Prothrombin Time Fingerstick 23.8 SEC (11.7-14.9)
== END | disposition home or self-care (01) ==
LOC: LAB 09:11
PROVIDERS: PCP Family Medicine; Referring Provider Internal Medicine Cardiovascular Disease; Visit Provider Internal Medicine Cardiovascular Disease
DX: Z95.2 Presence of prosthetic heart valve (principal)
CPT/HCPCS: 36416; 85610

== ENCOUNTER → 2022-07-29 | Outpatient (CLI) | payer MEDICARE, OTHER, SELFPAY ==
[2022-07-29 10:45] LABS: INR Fingerstick 2.5; Prothrombin Time Fingerstick 27.3 SEC (11.7-14.9)
== END | disposition home or self-care (01) ==
LOC: LAB 09:28
PROVIDERS: PCP Family Medicine; Visit Provider Internal Medicine Cardiovascular Disease
DX: Z95.2 Presence of prosthetic heart valve (principal)
CPT/HCPCS: 36416; 85610

== ENCOUNTER → 2022-08-13 | Outpatient (CLI) | payer MEDICARE, OTHER, SELFPAY ==
[2022-08-13 10:33] LABS: INR Fingerstick 2.2
== END | disposition home or self-care (01) ==
LOC: LAB 08:05
PROVIDERS: PCP Family Medicine; Referring Provider Internal Medicine Cardiovascular Disease; Visit Provider Internal Medicine Cardiovascular Disease
DX: Z95.2 Presence of prosthetic heart valve (principal)
CPT/HCPCS: 36416; 85610

== ENCOUNTER → 2022-08-20 | Outpatient (CLI) | payer MEDICARE, OTHER, SELFPAY ==
[2022-08-20 11:27] LABS: Prothrombin Time Fingerstick 21.9 SEC (11.7-14.9)
== END | disposition home or self-care (01) ==
LOC: LAB 09:32
PROVIDERS: PCP Family Medicine; Visit Provider Internal Medicine Cardiovascular Disease
DX: Z95.2 Presence of prosthetic heart valve (principal)
CPT/HCPCS: 36416; 85610

== ENCOUNTER → 2022-08-27 | Outpatient (CLI) | payer MEDICARE, OTHER, SELFPAY ==
[2022-08-27 10:02] LABS: International Normalized Ratio 2.4; Prothrombin Time (Protime)PT. 26.6 SECONDS (11.7-14.9)
== END | disposition home or self-care (01) ==
LOC: LAB 09:09
PROVIDERS: PCP Family Medicine; Referring Provider Internal Medicine Cardiovascular Disease; Visit Provider Internal Medicine Cardiovascular Disease
DX: Z95.2 Presence of prosthetic heart valve (principal)
CPT/HCPCS: 36415; 85610

== ENCOUNTER → 2022-09-03 | Outpatient (CLI) | payer MEDICARE, OTHER, SELFPAY ==
[2022-09-03 10:50] LABS: International Normalized Ratio 2.7; Prothrombin Time (Protime)PT. 28.6 SECONDS (11.7-14.9)
== END | disposition home or self-care (01) ==
LOC: LAB 09:23
PROVIDERS: PCP Family Medicine; Visit Provider Internal Medicine Cardiovascular Disease
DX: Z95.2 Presence of prosthetic heart valve (principal)
CPT/HCPCS: 36415; 85610

== ENCOUNTER → 2022-09-11 | Outpatient (CLI) | payer MEDICARE, OTHER, SELFPAY ==
[2022-09-11 14:42] LABS: Absolute Lymphocyte Count 0.78 X10^3/uL (0.83-4.51); Absolute Neutrophil Count 7.7 X10^3/uL (2.0-7.7); Basophil# 0.04 X10^3/uL; Basophil% 0.4 % (0-1); Eosinophil# 0.24 X10^3/uL; Eosinophils% 2.6 % (0-5); Hematocrit 34.6 % (37-47); Hemoglobin 10.8 g/dL (12.0-15.0); Lymphocyte # 0.78 X10^3/ul (0.83-4.51); Lymphocyte % 8.4 % (19-41); Mean Corp Hgb Conc 31.2 g/dL (32-36); Mean Corpuscular Hgb 30.5 pg (27.0-32.0); Mean Corpuscular Volume 97.7 fL (81-99); Mean Platelet Vol. 9.9 fl (6.2-12.0); Monocyte# 0.56 X10^3/uL; NRBC Flagged by Analyzer 0 % (0-5); Neutrophil # 7.66 X10^3/uL (2.7-7.7); Neutrophil % 82.2 % (47-70); Platelet Count 278 K/mm3 (150-450); RBC Distribution Width CV 12.3 % (11.6-14.6); RBC Distribution Width SD 44.3 fl (35.1-43.9); Red Blood Count 3.54 M/mm3 (4.2-5.4); White Blood Count 9.3 K/mm3 (4.4-11.0)
[2022-09-11 14:59] LABS: Vitamin B12 505 pg/mL (211-911)
[2022-09-11 15:24] LABS: ALB/GLOB Ratio 1.2 RATIO (0.9-2.4); AST(SGOT) 15 U/L (15-37); Alanine Aminotransfer ALT/SGPT 25 U/L (13-56); Albumin, Serum 3.6 g/dL (3.2-5.0); Alkaline Phosphatase 88 U/L (45-117); Anion Gap 7 (5-15); BUN 21 mg/dL (7-18); BUN/Creat Ratio 12.7 RATIO (10-20); Calcium,Total 9.1 mg/dL (8.5-10.1); Chloride 106 mmol/L (98-107); Creatinine, Serum 1.65 mg/dL (0.55-1.02); EST Glomerular Filtration Rate 32 mL/min (>60); Est Glom Filt Rate - Afr Amer 39 mL/min (>60); Globulin 3.1 g/dL (2.2-4.2); Glucose 90 mg/dL (74-106); Potassium 4.2 mmol/L (3.5-5.1); Protein, Total 6.7 g/dL (6.4-8.2); Sodium Level 136 mmol/L (136-145)
[2022-09-14 19:07] LABS: KEPPRA (LEVETIRACETAM) 56.6 ug/mL (10.0-40.0); Trileptal-Oxcarbazepine 10 ug/mL (10-35)
== END | disposition home or self-care (01) ==
LOC: MTLAB 11:44
PROVIDERS: PCP Family Medicine; Referring Provider Psychiatry & Neurology Neurology; Visit Provider Psychiatry & Neurology Neurology
DX: G40.909 Epilepsy, unspecified, not intractable, without status epilepticus (principal); R41.89 Other symptoms and signs involving cognitive functions and awareness
CPT/HCPCS: 36415; 80053; 80177; 82140; 82542; 82607; 82746; 85025

== ENCOUNTER → 2022-09-14 | Outpatient (CLI) | payer MEDICARE, OTHER, SELFPAY ==
[2022-09-14 18:56] LABS: Amphetamine Urine VISTA NEGATIVE (<1000 ng/mL); Barbiturate Urine VISTA NEGATIVE (< 200 ng/mL); Benzodiazepine Urine VISTA NEGATIVE (< 200 ng/mL); Cocaine Urine VISTA NEGATIVE (< 300 ng/mL); Ecstacy Urine VISTA NEGATIVE (< 500 ng/mL); Methadone Urine VISTA NEGATIVE (< 300 ng/mL); PCP Urine VISTA NEGATIVE (< 25 ng/mL); THC Urine VISTA NEGATIVE (< 50 ng/mL); Vista UDS pH Range 5
== END | disposition home or self-care (01) ==
PROVIDERS: PCP Family Medicine; Visit Provider Anesthesiology Pain Medicine
DX: F11.20 Opioid dependence, uncomplicated (principal)
CPT/HCPCS: 80307

== ENCOUNTER → 2022-09-17 | Outpatient (CLI) | payer MEDICARE, OTHER, SELFPAY | END | disposition home or self-care (01) | LOC: LAB 09:33 | PROVIDERS: PCP Family Medicine; Referring Provider Internal Medicine Cardiovascular Disease; Visit Provider Internal Medicine Cardiovascular Disease | DX: Z95.2 Presence of prosthetic heart valve (principal) | CPT/HCPCS: 36415; 85610 ==

== ENCOUNTER → 2022-09-24 | Outpatient (CLI) | payer MEDICARE, OTHER, SELFPAY ==
--- NOTE | 2022-09-24 16:45 | CT_ITS ---
INDICATION: Impaired cognition. Patient feels off balance, like she is moving when standing still. EXAMINATION: CTA Head and Neck W/ Contrast Injection (and W/O Contrast Images if performed) TECHNIQUE: Routine unenhanced CT brain performed then CTA of the head and neck was performed with post processing of the angiographic images for volumetric reconstructions. In addition, images were obtained of the [place]. Nascet criteria using the distal ICAs for comparison were used for evaluation of stenoses. 3D reconstructions were reviewed. A radiation dose optimization technique was used for this scan. IV Contrast dosage and agent: 100 cc Isovue-370 COMPARISON: Unenhanced CT brain from 04/21/2021 FINDINGS: -- BRAIN (unenhanced): BRAIN PARENCHYMA: No intra- or extra-axial hemorrhage. No evidence of acute major territorial infarct. No intracranial mass or mass effect. Mild, chronic bilateral cerebral white matter lucencies are present. Chronic cerebral involutional changes also noted. CSF SPACES: Prominent cerebral sulci and extraaxial spaces secondary to involutional changes. No hydrocephalus. Basal cisterns are patent. CALVARIUM, SKULL BASE, PARANASAL SINUSES AND MASTOID AIR CELLS: Calvarium is intact. No acute findings within paranasal sinuses. Mastoid air cells are well-pneumatized. ORBITS: No acute findings. --NECK: AORTIC ARCH AND BRANCHES: Mild atherosclerosis with no aneurysm, dissection, occlusion or significant stenosis. RIGHT CCA: No occlusion, significant stenosis or dissection. RIGHT ICA: No occlusion, significant stenosis or dissection. LEFT CCA: No occlusion, significant stenosis or dissection. LEFT ICA: No occlusion, significant stenosis or dissection. RIGHT VERTEBRAL ARTERY: Hypoplastic but patent right vertebral artery, with no occlusion or dissection. LEFT VERTEBRAL ARTERY: Dominant left vertebral artery with no occlusion, significant stenosis or dissection. NECK SOFT TISSUES: No acute findings. LUNG APICES: Mosaic attenuation of imaged upper lungs with scattered hypoventilatory changes and/or air trapping. BONES: Previous sternotomy. Multilevel degenerative disc space narrowing, endplate spurring and degenerative facet arthropathy along cervical spine. Chronic-appearing grade 1 retrolisthesis of C5 in relation to C4 and C6. No high-grade spinal canal stenosis. No acute fracture identified. --HEAD: --Anterior circulation: ICAs: No significant stenosis at the intracranial/visualized segments. ACAs: No significant stenosis at the visualized segments. ACOM: Present. MCAs: No significant stenosis at the visualized segments. --Posterior circulation: PCOMs: Patent on the right and faintly visualized on the left. manager of maintenance: No significant stenosis at the visualized segments. BASILAR ARTERY: No significant stenosis. VERTEBRAL ARTERIES: Patent bilaterally, dominant on the left and hypoplastic on the right. No evidence of intracranial aneurysm or vascular malformation. CT/CTA Head AND Neck W/ Contrast IMPRESSION: 1. Unenhanced CT brain with chronic involutional changes and chronic small vessel white matter disease but no evidence of acute intracranial abnormality. 2. CTA head and neck with no acute arterial occlusive disease. Congenital hypoplasia right vertebral artery noted. 3. Mild pulmonary air trapping and/or hypoventilatory changes. 4. Multilevel cervical spondylosis with chronic appearing grade 1 spondylolisthesis of C5. Electronically Signed: Dennis Lucia MD at 6:07 EDT ,
== END | disposition home or self-care (01) ==
LOC: CT 16:43
PROVIDERS: PCP Family Medicine; Referring Provider Psychiatry & Neurology Neurology; Visit Provider Psychiatry & Neurology Neurology
DX: R41.89 Other symptoms and signs involving cognitive functions and awareness (principal)
CPT/HCPCS: 70496; 70498; Q9967

== ENCOUNTER → 2022-09-30 | Outpatient (CLI) | payer MEDICARE, OTHER, SELFPAY ==
[2022-09-30 11:48] LABS: International Normalized Ratio 2.8
== END | disposition home or self-care (01) ==
LOC: LAB 08:42
PROVIDERS: PCP Family Medicine; Referring Provider Internal Medicine Cardiovascular Disease; Visit Provider Internal Medicine Cardiovascular Disease
DX: Z95.2 Presence of prosthetic heart valve (principal)
CPT/HCPCS: 36415; 85610

== ENCOUNTER → 2022-10-22 | Outpatient (CLI) | payer MEDICARE, OTHER, SELFPAY ==
[2022-10-22 11:11] LABS: International Normalized Ratio 3.6; Prothrombin Time (Protime)PT. 36.4 SECONDS (11.7-14.9)
== END | disposition home or self-care (01) ==
LOC: LAB 09:47
PROVIDERS: PCP Family Medicine; Referring Provider Internal Medicine Cardiovascular Disease; Visit Provider Internal Medicine Cardiovascular Disease
DX: Z95.2 Presence of prosthetic heart valve (principal)
CPT/HCPCS: 36415; 85610

== ENCOUNTER → 2022-11-03 | Outpatient (CLI) | payer MEDICARE, OTHER, SELFPAY ==
[2022-11-03 12:22] LABS: International Normalized Ratio 2.3; Prothrombin Time (Protime)PT. 25.6 SECONDS (11.7-14.9)
== END | disposition home or self-care (01) ==
LOC: LAB 11:57
PROVIDERS: PCP Family Medicine; Visit Provider Internal Medicine Cardiovascular Disease
DX: Z95.2 Presence of prosthetic heart valve (principal)
CPT/HCPCS: 36415; 85610

== ENCOUNTER → 2022-11-17 | Outpatient (CLI) | payer MEDICARE, OTHER, SELFPAY ==
[2022-11-17 11:36] LABS: International Normalized Ratio 3.7
== END | disposition home or self-care (01) ==
LOC: LAB 09:43
PROVIDERS: PCP Family Medicine; Visit Provider Internal Medicine Cardiovascular Disease
DX: Z95.2 Presence of prosthetic heart valve (principal)
CPT/HCPCS: 36415; 85610

== ENCOUNTER → 2022-11-27 | Outpatient (CLI) | payer MEDICARE, OTHER, SELFPAY ==
[2022-11-27 11:01] LABS: International Normalized Ratio 3.6; Prothrombin Time (Protime)PT. 36.8 SECONDS (11.7-14.9)
== END | disposition home or self-care (01) ==
LOC: LAB 09:28
PROVIDERS: PCP Family Medicine; Visit Provider Internal Medicine Cardiovascular Disease
DX: Z95.2 Presence of prosthetic heart valve (principal)
CPT/HCPCS: 36415; 85610

== ENCOUNTER → 2022-12-15 | Outpatient (CLI) | payer MEDICARE, OTHER, SELFPAY ==
[2022-12-15 12:00] LABS: International Normalized Ratio 3.2
== END | disposition home or self-care (01) ==
LOC: LAB 09:20
PROVIDERS: PCP Family Medicine; Visit Provider Internal Medicine Cardiovascular Disease
DX: Z95.2 Presence of prosthetic heart valve (principal)
CPT/HCPCS: 36415; 85610

== ENCOUNTER → 2022-12-29 | Outpatient (CLI) | payer MEDICARE, OTHER, SELFPAY ==
[2022-12-29 10:51] LABS: Prothrombin Time (Protime)PT. 31.7 SECONDS (11.7-14.9)
== END | disposition home or self-care (01) ==
LOC: LAB 09:14
PROVIDERS: PCP Family Medicine; Visit Provider Internal Medicine Cardiovascular Disease
DX: Z95.2 Presence of prosthetic heart valve (principal)
CPT/HCPCS: 36415; 85610

== ENCOUNTER → 2023-01-19 | Outpatient (CLI) | payer MEDICARE, OTHER, SELFPAY ==
[2023-01-19 10:36] LABS: International Normalized Ratio 2.5; Prothrombin Time (Protime)PT. 27.4 SECONDS (11.7-14.9)
== END | disposition home or self-care (01) ==
LOC: LAB 08:56
PROVIDERS: PCP Family Medicine; Visit Provider Internal Medicine Cardiovascular Disease
DX: Z95.2 Presence of prosthetic heart valve (principal)
CPT/HCPCS: 36415; 85610

== ENCOUNTER → 2023-02-12 | Outpatient (CLI) | payer MEDICARE, OTHER, SELFPAY ==
[2023-02-12 18:19] LABS: Anion Gap 8 (5-15); BUN 27 mg/dL (7-18); BUN/Creat Ratio 19.4 RATIO (10-20); Calcium,Total 8.5 mg/dL (8.5-10.1); Chloride 108 mmol/L (98-107); Cholesterol 172 mg/dL (200); Creatinine, Serum 1.39 mg/dL (0.55-1.02); EST Glomerular Filtration Rate 39 mL/min (>60); Est Glom Filt Rate - Afr Amer 47 mL/min (>60); Free T3 2.1 pg/mL (2.18-3.98); Glucose 93 mg/dL (74-106); High Density Lipoprotein 79 mg/dL; Sodium Level 140 mmol/L (136-145); T4 Free Direct 0.81 ng/dL (0.76-1.46); Triglycerides 178 mg/dL; Very Low Density Lipoprotein 36 mg/dL (5-40)
== END | disposition home or self-care (01) ==
LOC: MFPLAB 14:18
PROVIDERS: PCP Family Medicine; Visit Provider Family Medicine
DX: I10 Essential (primary) hypertension (principal); E03.9 Hypothyroidism, unspecified
CPT/HCPCS: 36415; 80048; 80061; 84439; 84443; 84481

== ENCOUNTER → 2023-02-16 | Outpatient (CLI) | payer MEDICARE, OTHER, SELFPAY ==
[2023-02-16 10:39] LABS: International Normalized Ratio 3.9
== END | disposition home or self-care (01) ==
LOC: LAB 09:26
PROVIDERS: PCP Family Medicine; Visit Provider Internal Medicine Cardiovascular Disease
DX: Z95.2 Presence of prosthetic heart valve (principal)
CPT/HCPCS: 36415; 85610

== ENCOUNTER 2023-02-22 13:00 | Inpatient (IN) | payer MEDICARE, OTHER, SELFPAY ==
[2023-02-22 13:01] VITALS: BP 135/63; PULSE 85; RESP 16; TEMP 35.8; O2SAT 98
--- NOTE | 2023-02-22 13:22 | CT_ITS ---
STUDY: CT ABDOMEN AND PELVIS WITH CONTRAST REASON FOR EXAM: Female, 78 years old. Abdominal pain, rectal bleeding. RADIATION DOSAGE (If Supplied By Facility): CTDIvol = ( 16.33 ) mGy, DLP = ( 1107.95 ) mGycm TECHNIQUE: Transaxial images were obtained from the dome of the diaphragm to the symphysis pubis without oral contrast. IV 100mL Isovue-300 was administered. Sagittal and coronal images were reconstructed. Individualized dose optimization techniques were used for this CT. COMPARISON: None. FINDINGS: The visualized lung bases are unremarkable. Coronary artery calcification. There is a 1.8 cm x 0.8 cm linear cystic structure along the inferior lateral aspect of the right lobe of the liver suggestive of a small cyst. Additional sludge versus tiny gallstones along the dependent portion of the gallbladder lumen. Normal spleen. Normal pancreas. Normal bilateral adrenal glands. Normal right kidney. 0.1 mm cyst in the posterior midportion of the left kidney. There is a small hiatal hernia. Normal small intestine. Circumferential wall thickening of the descending colon from the splenic flexure down to the rectum in keeping with ventriculitis. There is evidence of sigmoid diverticulosis. The appendix is visualized and appears normal. There is diffuse atherosclerotic calcification of the abdominal aorta and its major visceral branches., without a demonstrated aneurysm. Normal inferior vena cava. Normal retroperitoneum. Small amount of air is seen in the anterior aspect of the urinary bladder. This most likely is secondary to prior Ellison catheter insertion. There is absence of the uterus consistent with a prior hysterectomy. Normal abdominal wall. There are diffuse degenerative changes of the visualized lumbar spine. Levoscoliosis. CT/Abdomen/Pelvis W IV Cont ONLY IMPRESSION: Findings in keeping with colitis of the left hemicolon with sigmoid diverticulosis. Small amount of air is seen within urinary bladder. Electronically Signed: Rupert Ann MD at 14:45 EST ,
--- NOTE | 2023-02-22 13:24 | EDS_ITS ---
HPI <MERLE Figueredo - Last Filed: 02/22/23 16:27> History of Present Illness Chief Complaint: GI Bleed Narrative Narrative: 78-year-old female with PMH of HTN, aortic valve replacement on Coumadin presents with rectal bleeding. She states last night she had broccoli cheddar soup for dinner and then became nauseous and started vomiting and having loose stools. She says it was not quite diarrhea but she had multiple episodes of the loose stools. She went to bed and got up several times overnight to urinate which is a chronic issue. When she went to the bathroom she had bright red rectal bleeding with quarter size clots. She did not have stool. This is occurred about 3 times and she has lower abdominal discomfort. She had no more nausea or vomiting today but has decreased appetite. No fever or chills. Denies history of GI bleed. She states her colonoscopy years ago was normal. 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 Migraines Near syncope Paroxysmal atrial fibrillation Physical debility Seizure Seizure disorder Spinal stenosis Stage 3 chronic kidney disease Stage 4 chronic kidney disease Thoracic aortic aneurysm (TAA) Urine retention Home Medications allopurinol 100 mg tablet 100 mg PO DAILY GOUT #90 tabs 02/22/19 [History Last Taken Unknown] levothyroxine 100 mcg tablet 100 mcg PO DAILY THYROID #90 tabs 02/22/19 [History Last Taken 11/30/19 07:30 100 MCG] omeprazole 40 mg capsule,delayed release 40 mg PO DAILY GERD #90 caps 02/22/19 [History Last Taken 11/30/19 07:30 40 MG] Cholecalciferol (Vitamin D3) [Vitamin D3] 2,000 unit PO DAILY SUPPLEMENT 11/27/19 [History Last Taken Unknown] acetaminophen 500 mg tablet 1,000 mg (2 x 500 mg) PO Q8 PRN pain 1-10 #1 TAB 12/14/19 [Rx Last Taken Unknown] levetiracetam 1,000 mg tablet (Keppra) 1,000 mg PO BID 06/06/21 [History Last Taken Unknown] rosuvastatin 20 mg tablet (Crestor) 20 mg PO DAILY 06/06/21 [History Last Taken Unknown] duloxetine 30 mg capsule,delayed release 60 mg PO DAILY 09/12/21 [History Last Taken Unknown] hydrocodone-acetaminophen 5-325mg 5mg-325mg 1 tab PO DAILY PRN pain (scale score 4-6) 09/12/21 [History Last Taken Unknown] oxcarbazepine 150 mg tablet 150 mg PO BID 09/12/21 [History Last Taken Unknown] amlodipine 10 mg tablet 10 mg PO DAILY 11/25/21 [History Last Taken Unknown] metoprolol succinate 25 mg tablet,extended release 24 hr 12.5 mg PO DAILY HEART #90 tabs 11/25/21 [History Last Taken Unknown] flecainide 100 mg tablet 50 mg PO BID HEART 12/09/21 [History Last Taken Unknown] warfarin 2 mg tablet 4 mg PO DAILY 05/29/22 [History Last Taken Unknown] memantine 10 mg tablet 10 mg PO BID 02/22/23 [History Last Taken Unknown] nortriptyline 10 mg capsule 50 mg PO QHS 02/22/23 [History Last Taken Unknown] vibegron 75 mg tablet (Gemtesa) 75 mg PO DAILY 02/22/23 [History Last Taken Unknown] Allergy/AdvReac Type Severity Reaction Status Date / Time celecoxib [From Celebrex] Allergy Severe Hives, Verified 02/22/23 13:00 swelling, difficulty breathing Sulfa (Sulfonamide Allergy Severe Hives, Verified 02/22/23 13:00 Antibiotics) swelling, difficulty breathing gemfibrozil AdvReac Intermediate Nausea,myal Verified 02/22/23 13:00 gias Family History Mother CVA (cerebral vascular accident) Breast cancer Hypertension CAD (coronary artery disease) Father Hypertension CAD (coronary artery disease) Surgical History Fracture of ankle, bimalleolar, left, closed H/O chest tube placement (05/07/01) History of bilateral breast reduction surgery (2008) History of left heart catheterization (12/07/15) History of loop recorder History of lumpectomy (2009) History of open reduction and internal fixation (ORIF) procedure (11/30/19) History of thumb surgery (2004) History of tilt table evaluation (05/21/16) History of total abdominal hysterectomy (1974) Hx of aortic valve replacement, mechanical (04/05/01) Hx of ascending aorta replacement (04/05/01) Social History Smoking Status: Never smoker ROS <MERLE Figueredo - Last Filed: 02/22/23 16:27> ROS ED ROS Narrative Constitutional: Negative for fever, chills, malaise. CVS: Negative for palpitations, chest pain, syncope. Respiratory: Negative for shortness of breath. GI: Positive for abdominal pain, nausea, vomiting. : Positive for frequency (chronic). EXAM <MERLE Figueredo - Last Filed: 02/22/23 16:27> Physical Exam Narrative Exam Narrative: CONST: Patient sitting in no acute distress. EYES: Normal inspection. NECK: Normal inspection. RESP: No respiratory distress, CTAB. CVS: Regular rate and rhythm, mechanical click from valve replacement. ABD: Soft and nontender, no guarding or rebound, nondistended. JAYDON: Gross bright red blood on with no stool present, no active or brisk bleeding. SKIN: Color normal, no rash, warm, dry, intact. EXTREMITIES: Normal appearance, no pedal edema. NEURO: Oriented x4. PSYCH: Normal affect. Const Vital Signs: 02/22/23 13:01 02/22/23 16:40 02/22/23 17:26 Temperature 96.5 F L Temperature Source Temporal Pulse Rate 85 72 86 Respiratory Rate 16 16 18 Blood Pressure 135/63 H 146/64 H 136/78 H Blood Pressure Mean 87 91 97 Pulse Ox 98 97 98 Oxygen Delivery Method Room Air Room Air <Dr. Francisco Singh MD - Last Filed: 02/22/23 17:40> Physical Exam Const Vital Signs: 02/22/23 13:01 02/22/23 16:40 02/22/23 17:26 Temperature 96.5 F L Temperature Source Temporal Pulse Rate 85 72 86 Respiratory Rate 16 16 18 Blood Pressure 135/63 H 146/64 H 136/78 H Blood Pressure Mean 87 91 97 Pulse Ox 98 97 98 Oxygen Delivery Method Room Air Room Air [facility] <MERLE Figueredo - Last Filed: 02/22/23 16:27> [facility] Narrative Medical decision making narrative: History gathered from: Patient and her daughter Patient has had about 3 episodes of bright red rectal bleeding that started overnight. Yesterday she had nausea vomiting and abdominal discomfort. She appears well and nontoxic. Vital signs stable. Her abdominal exam is benign. On rectal exam she has bright red blood in the rectal vault with no active bleeding and no stool present. Her labs around baseline with hemoglobin of 10.8, BUN 27, creatinine 1.46.INR is 1.8. She states recently it was too high so she held Coumadin. CT shows colitis of the left hemicolon. There is no acute diverticulitis and no leukocytosis so I do not think she needs antibiotics. I discussed the case with Dr. Espinoza who reviewed her scan and thinks this is ischemic colitis. He recommended admission and colonoscopy prep. She also has a UTI and was treated with Rocephin. Case will be discussed with the hospitalist. Lab Data Attestation: I reviewed the patient's lab results. Labs: Laboratory Results - last 24 hr 02/22/23 02/22/23 13:30 15:12 WBC 10.3 RBC 3.74 L Hgb 10.8 L Hct 35.0 L MCV 93.6 MCH 28.9 MCHC 30.9 L RDW Std Deviation 47.2 H RDW Coeff of Pravin 13.9 Plt Count 228 MPV 9.1 Immature Gran % (Auto) 0.500 Neut % (Auto) 84.4 H Lymph % (Auto) 6.6 L [place] % (Auto) 6.3 Eos % (Auto) 1.9 Baso % (Auto) 0.3 Absolute Neuts (auto) 8.7 H Absolute Lymphs (auto) 0.68 L Nucleated RBC % 0 PT 20.6 H INR 1.8 Sodium 142 Potassium 4.2 Chloride 109 H Carbon Dioxide 28.0 Anion Gap 5 BUN 27 H Creatinine 1.46 H Est GFR (MDRD) Af Amer 44 L Est GFR (MDRD) Non-Af 37 L BUN/Creatinine Ratio 18.5 Glucose 91 Calcium 8.8 Total Bilirubin 0.50 AST 15 ALT 34 Alkaline Phosphatase 93 Total Protein 6.5 Albumin 3.4 Globulin 3.1 Albumin/Globulin Ratio 1.1 Urine Color Yellow Urine Clarity Clear Urine pH 5.0 Ur Specific [place] 1.010 Urine Protein 30 H Urine Glucose (UA) Normal Urine Ketones Negative Urine Occult Blood 10 H Urine Nitrite Positive H Urine Bilirubin Negative Urine Urobilinogen Normal Ur Leukocyte Esterase 100 H Urine RBC 0 SEEN Urine WBC 5-10 SEEN Ur Squamous Epith Cells 0 SEEN Urine Bacteria 1+ Urine Mucus 0 SEEN Blood Type A NEGATIVE Antibody Screen NEGATIVE Radiography Diagnostic Testing: Clinical Impression(s) from Imaging Studies Abdomen/Pelvis CT 02/22/23 13:22 IMPRESSION: Findings in keeping with colitis of the left hemicolon with sigmoid diverticulosis. Small amount of air is seen within urinary bladder. Electronically Signed: Rupert Ann MD at 14:45 EST , <Dr. Francisco Singh MD - Last Filed: 02/22/23 17:40> [facility] Lab Data Labs: Laboratory Results - last 24 hr 02/22/23 02/22/23 13:30 15:12 WBC 10.3 RBC 3.74 L Hgb 10.8 L Hct 35.0 L MCV 93.6 MCH 28.9 MCHC 30.9 L RDW Std Deviation 47.2 H RDW Coeff of Pravin 13.9 Plt Count 228 MPV 9.1 Immature Gran % (Auto) 0.500 Neut % (Auto) 84.4 H Lymph % (Auto) 6.6 L [place] % (Auto) 6.3 Eos % (Auto) 1.9 Baso % (Auto) 0.3 Absolute Neuts (auto) 8.7 H Absolute Lymphs (auto) 0.68 L Nucleated RBC % 0 PT 20.6 H INR 1.8 Sodium 142 Potassium 4.2 Chloride 109 H Carbon Dioxide 28.0 Anion Gap 5 BUN 27 H Creatinine 1.46 H Est GFR (MDRD) Af Amer 44 L Est GFR (MDRD) Non-Af 37 L BUN/Creatinine Ratio 18.5 Glucose 91 Calcium 8.8 Total Bilirubin 0.50 AST 15 ALT 34 Alkaline Phosphatase 93 Total Protein 6.5 Albumin 3.4 Globulin 3.1 Albumin/Globulin Ratio 1.1 Urine Color Yellow Urine Clarity Clear Urine pH 5.0 Ur Specific [place] 1.010 Urine Protein 30 H Urine Glucose (UA) Normal Urine Ketones Negative Urine Occult Blood 10 H Urine Nitrite Positive H Urine Bilirubin Negative Urine Urobilinogen Normal Ur Leukocyte Esterase 100 H Urine RBC 0 SEEN Urine WBC 5-10 SEEN Ur Squamous Epith Cells 0 SEEN Urine Bacteria 1+ Urine Mucus 0 SEEN Blood Type A NEGATIVE Antibody Screen NEGATIVE Radiography Diagnostic Testing: Clinical Impression(s) from Imaging Studies Abdomen/Pelvis CT 02/22/23 13:22 IMPRESSION: Findings in keeping with colitis of the left hemicolon with sigmoid diverticulosis. Small amount of air is seen within urinary bladder. Electronically Signed: Rupert Ann MD at 14:45 EST , Treatment and Re-Evaluation :: I have personally performed a face to face assessment of the patient and have reviewed the YANELI Note. I performed a substantive portion of the visit including all aspects of the following. My esquivel findings include: History: Patient presents with bright red blood per rectum. Patient states she was just a little nauseated yesterday. In the evening she ate some soup and then started vomiting a couple times. But she saw no black or blood with that. She was not really having any abdominal pain. Later on when she got up to go the bathroom she noticed that there was blood in her depends. This happened 3 times at home and then a little bit in her fourth 1 as she came in here. This is blood in the stool not urine. She does not feel overall weak. Her last colonoscopy was probably 10 years ago or so. No known history of diverticula. Patient is on Coumadin for a mechanical aortic valve. No other areas of bleeding. Exam: Patient looks pale to me as I walk in the room. Even her daughter feels she looks more pale than normal. Heart is regular. I can hear a very clear mechanical click. Lungs are clear. Abdomen is actually soft and nontender on exam. Rectal exam did show bright red blood but not actively bleeding at this time. Medical Decision Making: Patient will have blood work done. Her hemoglobin is reading is unchanged at 10.8. But clinically she looks lower than this. This may be because of the acute nature of the bleeding. Her INR is abnormal but actually low for where it should be at 1.8. With her age, overall medical condition, mechanical heart valve on Coumadin, m ultiple blood counts I think she does need to come in the hospital. This is not a person that is safe or appropriate for discharge. Discharge Plan Dx/Rx/DC Orders Clinical Impression: Bleeding on Coumadin, Acute GI bleeding, Chronic anemia, Acute ischemic colitis, Acute UTI Disposition Disposition: Acute Care Hospital [facility] Discharge Date/Time: 02/22/23 17:28
[2023-02-22 13:41] LABS: Absolute Lymphocyte Count 0.68 X10^3/uL (0.83-4.51); Absolute Neutrophil Count 8.7 X10^3/uL (2.0-7.7); Basophil# 0.03 X10^3/uL; Basophil% 0.3 % (0-1); Eosinophils% 1.9 % (0-5); Hemoglobin 10.8 g/dL (12.0-15.0); Lymphocyte # 0.68 X10^3/ul (0.83-4.51); Lymphocyte % 6.6 % (19-41); Mean Corp Hgb Conc 30.9 g/dL (32-36); Mean Corpuscular Hgb 28.9 pg (27.0-32.0); Mean Corpuscular Volume 93.6 fL (81-99); Mean Platelet Vol. 9.1 fl (6.2-12.0); Monocyte# 0.65 X10^3/uL; Monocyte% 6.3 % (0-10); NRBC Flagged by Analyzer 0 % (0-5); Neutrophil # 8.66 X10^3/uL (2.7-7.7); Neutrophil % 84.4 % (47-70); Platelet Count 228 K/mm3 (150-450); RBC Distribution Width CV 13.9 % (11.6-14.6); RBC Distribution Width SD 47.2 fl (35.1-43.9); Red Blood Count 3.74 M/mm3 (4.2-5.4); White Blood Count 10.3 K/mm3 (4.4-11.0)
[2023-02-22 13:50] LABS: International Normalized Ratio 1.8; Prothrombin Time (Protime)PT. 20.6 SECONDS (11.7-14.9)
[2023-02-22 13:57] LABS: ALB/GLOB Ratio 1.1 RATIO (0.9-2.4); AST(SGOT) 15 U/L (15-37); Alanine Aminotransfer ALT/SGPT 34 U/L (13-56); Albumin, Serum 3.4 g/dL (3.2-5.0); Alkaline Phosphatase 93 U/L (45-117); Anion Gap 5 (5-15); BUN 27 mg/dL (7-18); BUN/Creat Ratio 18.5 RATIO (10-20); Calcium,Total 8.8 mg/dL (8.5-10.1); Chloride 109 mmol/L (98-107); Creatinine, Serum 1.46 mg/dL (0.55-1.02); EST Glomerular Filtration Rate 37 mL/min (>60); Est Glom Filt Rate - Afr Amer 44 mL/min (>60); Globulin 3.1 g/dL (2.2-4.2); Glucose 91 mg/dL (74-106); Potassium 4.2 mmol/L (3.5-5.1); Protein, Total 6.5 g/dL (6.4-8.2); Sodium Level 142 mmol/L (136-145)
[2023-02-22 15:17] LABS: Mucous, Urine 0 SEEN /hpf (<or=2+); Red Blood Cells-Urine 0 SEEN /hpf (0-5); Squamous Epithelial Cells - UA 0 SEEN /hpf (5-10)
[2023-02-22 15:23] LABS: Color, Urine Yellow (Yellow); Glucose, Dipstick Normal (Normal); Ketone-Dipstick Negative (Negative); Leukocyte Esterase-Dipstick 100 /ul (Negative); Nitrite-Dipstick Positive (Negative); Occult Blood-Urine 10 /ul (Negative); Protein-Dipstick 30 mg/dl (Negative); Urine Bilirubin Dipstick Negative (Negative); Urine Clarity Clear (Clear); Urine Urobilinogen Normal (Normal)
[2023-02-22 16:23] LABS: Bacteria 1+ /hpf (None Seen); White Blood Cells 5-10 SEEN /hpf (0-5)
[2023-02-22 16:40] VITALS: BP 146/64; PULSE 72; RESP 16; O2SAT 97
[2023-02-22 16:41] VITALS: BMI 39.2
[2023-02-22] MEDS: Ceftriaxone 1 GM/50 ML BAG IV (16:53)
--- NOTE | 2023-02-22 17:00 | HP.PCM.HOS_ITS ---
[facility] - General General Date of Admission: 02/22/23 Date of Service: 02/22/23 Chief Complaint: GI bleed HPI Narrative CHANNING CANCHOLA, is a 78-year-old female history of VTE, CKD, seizure disorder, paroxysmal A-fib, AV replacement on Coumadin, hypertension, hypothyroidism who presented to [facility] 02/22/2023 with rectal bleeding. Last night she ate dinner and then had nausea and vomiting and loose stools and developed bright red rectal bleeding with quarter size clots 3 times with some lower abdominal discomfort. No further nausea or vomiting but does have decreased appetite. Previously had normal colonoscopy but that was years ago, no history of GI bleed. In ED hemoglobin 10.8 which is baseline but stool occult positive. INR 1.8. Creatinine 1.46 and BUN 27 which appear to be baseline and patient vitally stable. CT abdomen pelvis in the ED demonstrated colitis of the left hemicolon with sigmoid diverticulosis. Case was discussed with Dr. Espinoza in ED who reviewed scan and thinks this may be ischemic colitis and recommended admission and colonoscopy prep. Hospitalist contacted for admission. Patient seen with daughter at bedside. She did endorse she has intermittent diarrhea and nausea about once a month which does seem to be associated with food but has never had blood per rectum. Otherwise was in her usual health until yesterday when she developed the nausea and vomiting and loose stools after eating and then this morning had clots and bright red blood per rectum 3 times, initially with a lot of blood but this has slowed down. Also had abdominal pain in her lower abdomen and around her back that would happen before the bowel movements but does not feel that pain at this time. Does have some chronic urologic problems and incontinence especially overnight but denies any other urinary symptoms whatsoever at this time. No recent fevers or chills, no other abdominal pain, patient with no other complaints. [facility] Medical History Aortic stenosis with bicuspid valve Ascending aortic aneurysm Esophageal reflux Head injuries History of gout History of venous thrombosis and embolism Hyperparathyroidism Hyperuricemia Hypothyroidism prison current use of 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 Migraines Near syncope Paroxysmal atrial fibrillation Physical debility Seizure Seizure disorder Spinal stenosis Stage 3 chronic kidney disease Stage 4 chronic kidney disease Thoracic aortic aneurysm (TAA) Urine retention Home Medications allopurinol 100 mg tablet 100 mg PO DAILY GOUT #90 tabs 02/22/19 [History Last Taken Unknown] levothyroxine 100 mcg tablet 100 mcg PO DAILY THYROID #90 tabs 02/22/19 [History Last Taken 11/30/19 07:30 100 MCG] omeprazole 40 mg capsule,delayed release 40 mg PO DAILY GERD #90 caps 02/22/19 [History Last Taken 11/30/19 07:30 40 MG] Cholecalciferol (Vitamin D3) [Vitamin D3] 2,000 unit PO DAILY SUPPLEMENT [History Last Taken Unknown] acetaminophen 500 mg tablet 1,000 mg (2 x 500 mg) PO Q8 PRN pain 1-10 #1 TAB 12/14/19 [Rx Last Taken Unknown] levetiracetam 1,000 mg tablet (Keppra) 1,000 mg PO BID 06/06/21 [History Last Taken Unknown] rosuvastatin 20 mg tablet (Crestor) 20 mg PO DAILY 06/06/21 [History Last Taken Unknown] duloxetine 30 mg capsule,delayed release 60 mg PO DAILY 09/12/21 [History Last Taken Unknown] hydrocodone-acetaminophen 5-325mg 5mg-325mg 1 tab PO DAILY PRN pain (scale score 4-6) 09/12/21 [History Last Taken Unknown] oxcarbazepine 150 mg tablet 150 mg PO BID 09/12/21 [History Last Taken Unknown] amlodipine 10 mg tablet 10 mg PO DAILY 11/25/21 [History Last Taken Unknown] metoprolol succinate 25 mg tablet,extended release 24 hr 12.5 mg PO DAILY HEART #90 tabs 11/25/21 [History Last Taken Unknown] flecainide 100 mg tablet 50 mg PO BID HEART 12/09/21 [History Last Taken Unknown] warfarin 2 mg tablet 4 mg PO DAILY 05/29/22 [History Last Taken Unknown] memantine 10 mg tablet 10 mg PO BID 02/22/23 [History Last Taken Unknown] nortriptyline 10 mg capsule 50 mg PO QHS 02/22/23 [History Last Taken Unknown] vibegron 75 mg tablet (Gemtesa) 75 mg PO DAILY 02/22/23 [History Last Taken Unknown] Allergy/AdvReac Type Severity Reaction Status Date / Time celecoxib [From Celebrex] Allergy Severe Hives, Verified 02/22/23 13:00 swelling, difficulty breathing Sulfa (Sulfonamide Allergy Severe Hives, Verified 02/22/23 13:00 Antibiotics) swelling, difficulty breathing gemfibrozil AdvReac Intermediate Nausea,myal Verified 02/22/23 13:00 gias Family History Mother CVA (cerebral vascular accident) Breast cancer Hypertension CAD (coronary artery disease) Father Hypertension CAD (coronary artery disease) Surgical History Fracture of ankle, bimalleolar, left, closed H/O chest tube placement (05/07/01) History of bilateral breast reduction surgery (2008) History of left heart catheterization (12/07/15) History of loop recorder History of lumpectomy (2009) History of open reduction and internal fixation (ORIF) procedure (11/30/19) History of thumb surgery (2004) History of tilt table evaluation (05/21/16) History of total abdominal hysterectomy (1974) Hx of aortic valve replacement, mechanical (04/05/01) Hx of ascending aorta replacement (04/05/01) Social History Smoking Status: Never smoker ROS ROS Narrative General: Denies fever/chills HENT: Denies headache, denies stuffy nose, denies sore throat EYES: Denies changes in vision Resp: Denies cough, denies shortness of breath Cardiac: Denies chest pain but did feel some chest soreness after she received the dye that is improving GI: Nausea, vomiting, abdominal pain resolved, bright red blood per rectum decreasing : Denies changes in urination Extremity: Denies swelling MSK: Denies weakness Neuro: Denies any numbness/tingling Heme: Denies any bleeding or bruising Skin: Denies rashes Psychiatric: No complaints voiced Vital Signs Vital Signs Vital Signs: 02/22/23 13:01 02/22/23 16:40 Temperature 96.5 F L Temperature Source Temporal Pulse Rate 85 72 Respiratory Rate 16 16 Blood Pressure 135/63 H 146/64 H Blood Pressure Mean 87 91 Pulse Ox 98 97 Oxygen Delivery Method Room Air Room Air Weight Weight: 103.5 kg Body Mass Index (BMI) 39.2 Physical Exam Narrative General: Alert, oriented, no apparent distress HEENT: Atraumatic, normocephalic Eyes: Anicteric, normal conjunctiva, extraocular movements grossly intact Neck: Supple Respiratory: Clear to auscultation bilaterally, normal respiratory effort Cardiovascular: Regular rate, click of aortic valve heard GI: Soft, nontender, nondistended, hypoactive bowel sound Extremities: No edema Musculoskeletal: Moving all extremities Neuro: No overt focal neurological deficits Skin: No rashes appreciated Psych: Cooperative Results Lab / Micro Data 02/22/23 13:30 02/22/23 13:30 Labs: Laboratory Results - last 24 hr 02/22/23 13:30: WBC 10.3, RBC 3.74 L, Hgb 10.8 L, Hct 35.0 L, MCV 93.6, MCH 28.9, MCHC 30.9 L, RDW Std Deviation 47.2 H, RDW Coeff of Pravin 13.9, Plt Count 228, MPV 9.1, Immature Gran % (Auto) 0.500, Neut % (Auto) 84.4 H, Lymph % (Auto) 6.6 L, [place] % (Auto) 6.3, Eos % (Auto) 1.9, Baso % (Auto) 0.3, Absolute Neuts (auto) 8.7 H, Absolute Lymphs (auto) 0.68 L, Nucleated RBC % 0, PT 20.6 H, INR 1.8, Sodium 142, Potassium 4.2, Chloride 109 H, Carbon Dioxide 28.0, Anion Gap 5, BUN 27 H, Creatinine 1.46 H, Est GFR (MDRD) Af Amer 44 L, Est GFR (MDRD) Non- Af 37 L, BUN/Creatinine Ratio 18.5, Glucose 91, Calcium 8.8, Total Bilirubin 0.50, AST 15, ALT 34, Alkaline Phosphatase 93, Total Protein 6.5, Albumin 3.4, Globulin 3.1, Albumin/Globulin Ratio 1.1, Blood Type A NEGATIVE, Antibody Screen NEGATIVE 02/22/23 15:12: Urine Color Yellow, Urine Clarity Clear, Urine pH 5.0, Ur Specific [place] 1.010, Urine Protein 30 H, Urine Glucose (UA) Normal, Urine Ketones Negative, Urine Occult Blood 10 H, Urine Nitrite Positive H, Urine Bilirubin Negative, Urine Urobilinogen Normal, Ur Leukocyte Esterase 100 H, Urine RBC 0 SEEN, Urine WBC 5-10 SEEN, Ur Squamous Epith Cells 0 SEEN, Urine Ba cteria 1+, Urine Mucus 0 SEEN Micro: Microbiology 02/22/23 13:50 Stool Stool Occult Blood (AGNIESZKA) - Final Occult Blood Positive Imagaing Radiology Impression Abdomen/Pelvis CT 02/22/23 13:22 IMPRESSION: Findings in keeping with colitis of the left hemicolon with sigmoid diverticulosis. Small amount of air is seen within urinary bladder. Electronically Signed: Rupert Ann MD at 14:45 EST , Assessment & Plan Assessment/Plan (1) Acute GI bleeding: (2) Acute ischemic colitis: (3) Aortic stenosis with bicuspid valve: (4) Essential hypertension: (5) Hx of ascending aorta replacement: (6) Hypothyroidism: QUALIFIERS: Hypothyroidism type: acquired Qualified Code(s): E03.9 - Hypothyroidism, unspecified (7) Paroxysmal atrial fibrillation: (8) Stage 3 chronic kidney disease: PLAN: Plan #GI bleed and left sided colitis -CT abdomen pelvis in the ED demonstrated colitis of the left hemicolon with sigmoid diverticulosis -Case was discussed with GI in ED and it was suspected this is ischemic colitis and recommended admission and colonoscopy prep -Hemoglobin presently stable but given acute nature of bleed suspect will be lower on recheck -Vitally stable at this time -Trend H&H, type and cross -INR 1.8 as she has recently held her Coumadin due to supratherapeutic INR -Consult GI -N.p.o. at midnight #Abnormal UA -Patient with no urinary symptoms with 5-10 white blood cells -Culture pending, given lack of symptoms and other etiology for her presentation do not feel she needs empirically started on antibiotics -Continue to monitor -Patient was straight cath in ED for urine sample, suspect this is what caused finding of small amount of air in bladder on CT scan #History of VTE/AV valve replacement/A-fib on Coumadin -INR 1.8 as patient recently held Coumadin due to supratherapeutic INR -Holding Coumadin given bleeding -Continue statin, flecainide, metoprolol -Daily EKGs for QTc monitoring needed flecainide #[id number] -Appears to be at baseline -Continue supportive care #Seizure disorder -Continue Keppra and tegretol #Hypothyroidism -Continue Synthroid -Had TSH of 20 02/12/23, will check free t3 and free t4 #Mood disorder NOS -Continue duloxetine and nortriptyline #GERD -Continue PPI #DVT ppx: SCDs Gerri Holloway MD Charges/Coding Visit Charges Inpatient E&M: 66925 Init Hosp L2
--- NOTE | 2023-02-22 17:17 | EKG12_ITS ---
Test Reason : GI BLEED Blood Pressure : / mmHG Vent. Rate : 071 BPM Atrial Rate : 071 BPM P-R Int : 204 ms QRS Dur : 130 ms QT Int : 402 ms P-R-T Axes : 066 012 167 degrees QTc Int : 436 ms Normal sinus rhythm Left ventricular hypertrophy with QRS widening and repolarization abnormality ( [place] product ) Abnormal ECG Confirmed by CHER CELAYA, BRIANA ([id number]), medical transcription editor NOELLE MONTANEZ ([id number]) on 03/01/2023 1:52:58 P M Referred By: Confirmed By:TIFFANIE KWON MD
[2023-02-22 17:26] VITALS: BP 136/78; PULSE 86; RESP 18; O2SAT 98
[2023-02-22 18:06] VITALS: BMI 38.3
[2023-02-22 18:09] VITALS: BP 122/71; PULSE 77; RESP 14; TEMP 36.5; O2SAT 98
[2023-02-22] MEDS: Bisacodyl 5 MG Tablet 20 MG PO (18:34)
[2023-02-22 20:16] LABS: Hematocrit 32.2 % (37-47); Hemoglobin 10.1 g/dL (12.0-15.0); Mean Corp Hgb Conc 31.4 g/dL (32-36); Mean Corpuscular Hgb 29.2 pg (27.0-32.0); Mean Corpuscular Volume 93.1 fL (81-99); Mean Platelet Vol. 9.5 fl (6.2-12.0); Platelet Count 211 K/mm3 (150-450); RBC Distribution Width CV 13.9 % (11.6-14.6); RBC Distribution Width SD 47.1 fl (35.1-43.9); Red Blood Count 3.46 M/mm3 (4.2-5.4); White Blood Count 9.8 K/mm3 (4.4-11.0)
[2023-02-22 22:00] VITALS: PULSE 80; RESP 16
[2023-02-22 23:00] VITALS: BP 143/73; PULSE 80; RESP 16; TEMP 36.8; O2SAT 97
--- NOTE | 2023-02-22 23:00 | CON.PCM.GI_ITS ---
HPI Consult Data Date of Consult: 02/23/23 HPI Narrative Reason for Consultation: GI bleed HPI Narrative: CHANNING CANCHOLA, is a 78-year-old female with PMH of HTN, aortic valve replacement on Coumadin presents with rectal bleeding. She states last night she had broccoli cheddar soup for dinner and then became nauseous and started vomiting and having loose stools. She says it was not quite diarrhea but she had multiple episodes of the loose stools. She went to bed and got up several times overnight to urinate which is a chronic issue. When she went to the bathroom she had bright red rectal bleeding with quarter size clots. She did not have stool. This is occurred about 3 times and she has lower abdominal discomfort. She had no more nausea or vomiting today but has decreased appetite. No fever or chills. She denies history of GI bleed. She states her colonoscopy years ago was normal. She was normotensive and tachycardic in the ED. Her normal hemoglobin ranges around 13-14 and when she came at the hospital was at 10. CT scan of the abdomen pelvis displayed : there is a 1.8 cm x 0.8 cm linear cystic structure along the inferior lateral aspect of the right lobe of the liver suggestive of a small cyst. Additional sludge versus tiny gallstones along the dependent portion of the gallbladder lumen. Normal spleen. Normal pancreas. There is a small hiatal hernia. Normal small intestine. Circumferential wall thickening of the descending colon from the splenic flexure down to the rectum in keeping with ventriculitis. There is evidence of sigmoid diverticulosis. The appendix is visualized and appears normal. There is diffuse atherosclerotic calcification of the abdominal aorta and its major visceral branches., without a demonstrated aneurysm. FOR[facility]LY [facility] Medical History Aortic stenosis with bicuspid valve Ascending aortic aneurysm Esophageal reflux Head injuries History of gout History of venous thrombosis and embolism Hyperparathyroidism Hyperuricemia Hypothyroidism [facility] current use of 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 Migraines Near syncope Paroxysmal atrial fibrillation Physical debility Seizure Seizure disorder Spinal stenosis Stage 3 chronic kidney disease Stage 4 chronic kidney disease Thoracic aortic aneurysm (TAA) Urine retention Home Medications allopurinol 100 mg tablet 100 mg PO DAILY GOUT #90 tabs 02/22/19 [History Last Taken Unknown] levothyroxine 100 mcg tablet 100 mcg PO DAILY THYROID #90 tabs 02/22/19 [History Last Taken 11/30/19 07:30 100 MCG] omeprazole 40 mg capsule,delayed release 40 mg PO DAILY GERD #90 caps 02/22/19 [History Last Taken 11/30/19 07:30 40 MG] Cholecalciferol (Vitamin D3) [Vitamin D3] 2,000 unit PO DAILY SUPPLEMENT 11/27/19 [History Last Taken Unknown] acetaminophen 500 mg tablet 1,000 mg (2 x 500 mg) PO Q8 PRN pain 1-10 #1 TAB 12/14/19 [Rx Last Taken Unknown] levetiracetam 1,000 mg tablet (Keppra) 1,000 mg PO BID 06/06/21 [History Last Taken Unknown] rosuvastatin 20 mg tablet (Crestor) 20 mg PO DAILY 06/06/21 [History Last Taken Unknown] duloxetine 30 mg capsule,delayed release 60 mg PO DAILY 09/12/21 [History Last Taken Unknown] hydrocodone-acetaminophen 5-325mg 5mg-325mg 1 tab PO DAILY PRN pain (scale score 4-6) 09/12/21 [History Last Taken Unknown] oxcarbazepine 150 mg tablet 150 mg PO BID 09/12/21 [History Last Taken Unknown] amlodipine 10 mg tablet 10 mg PO DAILY 11/25/21 [History Last Taken Unknown] metoprolol succinate 25 mg tablet,extended release 24 hr 12.5 mg PO DAILY HEART #90 tabs 11/25/21 [History Last Taken Unknown] flecainide 100 mg tablet 50 mg PO BID HEART 12/09/21 [History Last Taken Unknown] warfarin 2 mg tablet 4 mg PO DAILY 05/29/22 [History Last Taken Unknown] memantine 10 mg tablet 10 mg PO BID 02/22/23 [History Last Taken Unknown] nortriptyline 10 mg capsule 50 mg PO QHS 02/22/23 [History Last Taken Unknown] vibegron 75 mg tablet (Gemtesa) 75 mg PO DAILY 02/22/23 [History Last Taken Unknown] Allergy/AdvReac Type Severity Reaction Status Date / Time celecoxib [From Celebrex] Allergy Severe Hives, Verified 02/22/23 13:00 swelling, difficulty breathing Sulfa (Sulfonamide Allergy Severe Hives, Verified 02/22/23 13:00 Antibiotics) swelling, difficulty breathing gemfibrozil AdvReac Intermediate Nausea,myal Verified 02/22/23 13:00 gias Family History Mother CVA (cerebral vascular accident) Breast cancer Hypertension CAD (coronary artery disease) Father Hypertension CAD (coronary artery disease) Surgical History Fracture of ankle, bimalleolar, left, closed H/O chest tube placement (05/07/01) History of bilateral breast reduction surgery (2008) History of left heart catheterization (12/07/15) History of loop recorder History of lumpectomy (2009) History of open reduction and internal fixation (ORIF) procedure (11/30/19) History of thumb surgery (2004) History of tilt table evaluation (05/21/16) History of total abdominal hysterectomy (1974) Hx of aortic valve replacement, mechanical (04/05/01) Hx of ascending aorta replacement (04/05/01) Social History (Updated 02/22/23 @ 18:08 by Stephanie Mcleod) [facility]: [facility] Smoking Status: Never smoker ROS ROS Narrative General: Denies fever/chills HENT: Denies headache, denies stuffy nose, denies sore throat EYES: Denies changes in vision Resp: Denies cough, denies shortness of breath Cardiac: Denies chest pain but did feel some chest soreness after she received the dye that is improving GI: Nausea, vomiting, abdominal pain resolved, bright red blood per rectum decreasing : Denies changes in urination Extremity: Denies swelling MSK: Denies weakness Neuro: Denies any numbness/tingling Heme: Denies any bleeding or bruising Skin: Denies rashes Psychiatric: No complaints voiced Physical Exam Narrative General: Alert, oriented, no apparent distress HEENT: Atraumatic, normocephalic Eyes: Anicteric, normal conjunctiva, extraocular movements grossly intact Neck: Supple Respiratory: Clear to auscultation bilaterally, normal respiratory effort Cardiovascular: Regular rate, click of aortic valve heard GI: Soft, nontender, nondistended, hypoactive bowel sound Extremities: No edema Musculoskeletal: Moving all extremities Neuro: No overt focal neurological deficits Skin: No rashes appreciated Psych: Cooperative Lab / Micro Data 02/23/23 10:37 02/23/23 03:00 Labs: Laboratory Results - last 24 hr 02/22/23 13:30: Blood Type A NEGATIVE, Antibody Screen NEGATIVE 02/22/23 15:12: Urine Color Yellow, Urine Clarity Clear, Urine pH 5.0, Ur Specific [place] 1.010, Urine Protein 30 H, Urine Glucose (UA) Normal, Urine Ketones Negative, Urine Occult Blood 10 H, Urine Nitrite Positive H, Urine Bilirubin Negative, Urine Urobilinogen Normal, Ur Leukocyte Esterase 100 H, Urine RBC 0 SEEN, Urine WBC 5-10 SEEN, Ur Squamous Epith Cells 0 SEEN, Urine Bacteria 1+, Urine Mucus 0 SEEN 02/22/23 20:10: WBC 9.8, RBC 3.46 L, Hgb 10.1 L, Hct 32.2 L, MCV 93.1, MCH 29.2, MCHC 31.4 L, RDW Std Deviation 47.1 H, RDW Coeff of Pravin 13.9, Plt Count 211, MPV 9.5 02/23/23 03:00: WBC 12.0 H, RBC 3.67 L, Hgb 10.7 L, Hct 34.4 L, MCV 93.7, MCH 29.2, MCHC 31.1 L, RDW Std Deviation 47.5 H, RDW Coeff of Pravin 14.1, Plt Count 229, MPV 9.3, Immature Gran % (Auto) 0.700, Neut % (Auto) 84.8 H, Lymph % (Auto) 6.0 L, [place] % (Auto) 6.7, Eos % (Auto) 1.4, Baso % (Auto) 0.4, Absolute Neuts (auto) 10.2 H, Absolute Lymphs (auto) 0.72 L, Nucleated RBC % 0, PT 22.5 H, INR 2.0, Sodium 139, Potassium 3.5, Chloride 107, Carbon Dioxide 24.0, Anion Gap 8, BUN 25 H, Creatinine 1.58 H, Estim Creat Clear Calc 24.52, Est GFR (MDRD) Af Amer 41 L, Est GFR (MDRD) Non-Af 33 L, BUN/Creatinine Ratio 15.8, Glucose 106, Calcium 8.5, TSH 6.21 H 02/23/23 10:37: WBC 9.9, RBC 3.39 L, Hgb 10.3 L, Hct 32.2 L, MCV 95.0, MCH 30.4, MCHC 32.0, RDW Std Deviation 49.0 H, RDW Coeff of Pravin 14.0, Plt Count 185, MPV 8.9 Micro: Microbiology 02/22/23 15:12 Urine Catheter - Catheter Urine Culture - Preliminary GNR lactose event specialist food demonstrator 02/22/23 13:50 Stool Stool Occult Blood (AGNIESZKA) - Final Occult Blood Positive Imagaing Radiology Impression Abdomen/Pelvis CT 02/22/23 13:22 IMPRESSION: Findings in keeping with colitis of the left hemicolon with sigmoid diverticulosis. Small amount of air is seen within urinary bladder. Electronically Signed: Rupert Ann MD at 14:45 EST , Assessment & Plan Assessment/Plan (1) Acute GI bleeding: (2) Acute ischemic colitis: (3) Aortic stenosis with bicuspid valve: (4) Essential hypertension: (5) Hx of ascending aorta replacement: (6) Hypothyroidism: QUALIFIERS: Hypothyroidism type: acquired Qualified Code(s): E03.9 - Hypothyroidism, unspecified (7) Paroxysmal atrial fibrillation: (8) Stage 3 chronic kidney disease: PLAN: Plan 78-year-old who presents with abdominal pain, nausea, vomiting and multiple episodes of lower GI bleeding. GI bleed and left sided colitis-differential diagnosis does include ischemic colitis, less likely infectious colitis or ulcerative colitis -CT abdomen pelvis in the ED demonstrated colitis of the left hemicolon with sigmoid diverticulosis -Trend H&H, type and cross -INR 1.8 as she has recently held her Coumadin due to supratherapeutic INR -N.p.o. at midnight History of VTE/AV valve replacement/A-fib on Coumadin -INR 1.8 as patient recently held Coumadin due to supratherapeutic INR -Holding Coumadin given bleeding -Continue statin, flecainide, metoprolol -Daily EKGs for QTc monitoring needed flecainide Charges/Coding Visit Charges Inpatient E&M: 78053 Init Hosp L3
[2023-02-22] MEDS: levETIRAcetam 1,000 MG Tablet 1000 MG PO (23:10)
[2023-02-22] MEDS: Atorvastatin Calcium 40 MG Tablet PO (23:11)
[2023-02-22] MEDS: Nortriptyline 25 MG Capsule 50 MG PO (23:12)
[2023-02-22] MEDS: OXcarbazepine 150 MG Tablet PO (23:14)
[2023-02-22] MEDS: Flecainide 100 MG Tablet 50 MG PO (23:15)
[2023-02-22] MEDS: 0.9% Normal Saline (1000mL) 1,000 ML 50 ML IV (23:26)
[2023-02-22] MEDS: Polyethylene Glycol 3350 BOWEL PREP PO (23:30)
[2023-02-23] VITALS (8 sets, daily range): BP systolic 115–142; BP diastolic 48–75; PULSE 64–94; RESP 16–18; TEMP 35.8–36.7; O2SAT 92–99; BMI 38.9
--- NOTE | 2023-02-23 | IMM_PTH ---
PATIENT: CHANNING CANCHOLA LOC: U U#:[id number] AGE/SX: 78/F ROOM: [facility] RE02/22/[address]: Dr. Sav Edmond DO : 1945 BED: 1 DIS: 02/24/2023 SPEC #: [id number] RECD: 02/25/23 12:12 STATUS: MEGAN REQ #: [id number] OLEKSANDR: 02/23/23 00:[address]: Sav Edmond DEPT: IMMUNOHISTOCHEMISTRY RECD BY: Bryanna Hewitt ENTERED: 02/25/23 12:15 SP TYPE: IMMUNO OTHR DR: MD Dr. Gerri Woods MD Tissues: Duodenum, NOS Procedures: Synapto (add) CD56 (add) CHROMO (add) CK19 (add) CK20 (add) CK7 (add) KI-67 (add) P53 (add) 34BE12 (add) Pankeratin (initial) P40 (add) CDX2 (add) NSE (add) PHYSICIAN & [place] [phone] SPECIMEN INFORMATION: Tissue Source: A - Duodenal polyp Clinical Info: Acute GI bleeding Specimen Number: [id number] CPT code: 75343, 78771 x12 METHODOLOGY: Deparaffinized sections of prefer/formalin-fixed tissue or PAP/DQ stained slides are incubated with monoclonal/polyclonal antibodies/oligonucleotide probes. Localization is made via biotin free immunoperoxidase method. Appropriate controls are performed and reacted as expected. Results on target cell population are indicated in the following table: RESULTS: ANTIBODY / CLONE RESULT Block A AE1-3 (AE1/AE3/PCK26) positive, dot-like pattern CK7 (OV-TL12/30) negative CK20 (KS20.8) negative CDX2 (GIT8345F) positive 34BE12 (34BE12) negative CK19 (A53-B/A2.26) positive, dim CD56 (123C3.D5) positive Chromo (LK2H10) positive Synapto (polyclonal) positive NSE Neuron Specific Enolase positive P40 (BC28) negative P53 (DO-7) negative, null pattern Ki-67 (30-9) negative These tests were developed and their performance characteristics determined by [facility]. They may not have been cleared or approved by the U.S. Food and Drug Administration. The FDA has determined that such clearance or approval is not necessary. The above immunohistochemical/dualISH markers are ordered and reviewed by the Pathologist. INTERPRETATION: A. Duodenal polyp, biopsy: Neuroendocrine tumor. AM:lacho 02/26/2023
[2023-02-23] MEDS: Ondansetron 4 MG/2 ML Vial IV (00:58)
[2023-02-23 03:46] LABS: Absolute Lymphocyte Count 0.72 X10^3/uL (0.83-4.51); Absolute Neutrophil Count 10.2 X10^3/uL (2.0-7.7); Basophil# 0.05 X10^3/uL; Basophil% 0.4 % (0-1); Eosinophil# 0.17 X10^3/uL; Eosinophils% 1.4 % (0-5); Hematocrit 34.4 % (37-47); Hemoglobin 10.7 g/dL (12.0-15.0); Lymphocyte # 0.72 X10^3/ul (0.83-4.51); Mean Corp Hgb Conc 31.1 g/dL (32-36); Mean Corpuscular Hgb 29.2 pg (27.0-32.0); Mean Corpuscular Volume 93.7 fL (81-99); Mean Platelet Vol. 9.3 fl (6.2-12.0); Monocyte% 6.7 % (0-10); NRBC Flagged by Analyzer 0 % (0-5); Neutrophil # 10.16 X10^3/uL (2.7-7.7); Neutrophil % 84.8 % (47-70); Platelet Count 229 K/mm3 (150-450); RBC Distribution Width CV 14.1 % (11.6-14.6); RBC Distribution Width SD 47.5 fl (35.1-43.9); Red Blood Count 3.67 M/mm3 (4.2-5.4)
[2023-02-23 04:21] LABS: Anion Gap 8 (5-15); BUN 25 mg/dL (7-18); BUN/Creat Ratio 15.8 RATIO (10-20); Calcium,Total 8.5 mg/dL (8.5-10.1); Chloride 107 mmol/L (98-107); Creatinine, Serum 1.58 mg/dL (0.55-1.02); EST Glomerular Filtration Rate 33 mL/min (>60); Est Glom Filt Rate - Afr Amer 41 mL/min (>60); Estimated Creatinine Clearance 24.52 ml/min; Glucose 106 mg/dL (74-106); Potassium 3.5 mmol/L (3.5-5.1); Sodium Level 139 mmol/L (136-145); Thyroid Stim Hormone (TSH) 6.21 uIU/mL (0.358-3.74)
[2023-02-23 04:42] LABS: Prothrombin Time (Protime)PT. 22.5 SECONDS (11.7-14.9)
[2023-02-23] MEDS: Levothyroxine 100 MCG Tablet PO (06:52)
[2023-02-23] MEDS: Pantoprazole Sodium 40 MG Tablet PO (09:21)
[2023-02-23] MEDS: Metoprolol(XL)Succ 25 MG Tablet 12.5 MG PO (09:21)
[2023-02-23] MEDS: Allopurinol 100 MG Tablet PO (09:21)
[2023-02-23] MEDS: DULoxetine Hcl 30 MG Capsule 60 MG PO (09:21)
[2023-02-23] MEDS: Flecainide 100 MG Tablet 50 MG PO ×2 (09:22→21:22)
[2023-02-23] MEDS: Vibegron 75 MG TABLET PO (09:22)
[2023-02-23] MEDS: levETIRAcetam 1,000 MG Tablet 1000 MG PO ×2 (09:23→21:21)
[2023-02-23] MEDS: OXcarbazepine 150 MG Tablet PO ×2 (09:23→21:22)
[2023-02-23 10:51] LABS: Hematocrit 32.2 % (37-47); Hemoglobin 10.3 g/dL (12.0-15.0); Mean Corpuscular Hgb 30.4 pg (27.0-32.0); Mean Platelet Vol. 8.9 fl (6.2-12.0); Platelet Count 185 K/mm3 (150-450); Red Blood Count 3.39 M/mm3 (4.2-5.4); White Blood Count 9.9 K/mm3 (4.4-11.0)
--- NOTE | 2023-02-23 12:05 | CHAPLAIN ---
Type of Pastoral Visit _x__ Initial Visit ___ Follow-up Visit ___ On-call Visit ___ General Patient Visit ___ Spiritual Assessment ___ Family Conference ___ Bereavement ___ Rapid Response ___ Code Blue ___ Other (describe below) Pastoral Care Referral From _x__ Patient ___ Family ___ Nurse ___ Physician ___ Military Communications Specialist ___ Marketing Strategy Lead ___ Other (describe below) Sacrament/Intervention _x__ Active listening ___ Anointing ___ Christian ___ Bereavement ___ Communion ___ Oralia exploration ___ ___ Life review _x__ Prayer ___ Reconciliation ___ Sacrament of Sick _x__ Supportive presence ___ Wedding ___ Other (describe below) Pastoral Comments time and presence given to hear patient describe her needs and concerns; pt is hoping to be able to go home after her procedure and have the issue resolved; pt welcomes someone to talk with and a prayer being given; pt reports feeling better after the visit and prayer
--- NOTE | 2023-02-23 12:40 | CASEMGMT ---
RN CM Face to Face with patient for initial transition planning/care coordination assessment. RN CM introduced self and role at [facility]. Patient lying in bed, alert and oriented. Patient willing to participate in assessment and is able to answer all questions appropriately. Care providers, pharmacy, and demographics verified. Patient wishes to discharge home, denies need for home health at this time. Patient states she has no further needs or concerns at this time. CM to follow for discharge planning needs that may arise. PCP: [facility] Specialists:Benji, cigarette book maker; Adalid urologist; Dmitry environmental intern Preferred [facility]acy: [facility] Insurance: MCR, Prescription Benefit: yes Living Will/HPOA: yes, daughter Fátima Khan LNOK: daughters Living Arrangements: Patient lives alone in a condo with 1 step to enter. Patient states she is independent at home. Transportation: self, daughters, son DME/HHC: Patient states she has shower chair, raised toilet, cane, walker, grab bars, and wheelchair at home. Patient has had [facility]HC in the past. No previous HHC. Disposition Plan: Patient to discharge home with family support and follow-up plans in place. Dara BAUTISTA, RN, CM
[2023-02-23] MEDS: Lactated Ringers 1,000 ML 15 ML IV (13:19)
--- NOTE | 2023-02-23 14:15 | COLBX_PTH ---
PATIENT: CHANNING CANCHOLA LOC: [facility] U#:[id number] AGE/SX: 78/F ROOM: [facility] RE02/22/[address]: Dr. Sav Edmond DO : 1945 BED: 1 DIS: 02/24/2023 SPEC #: [id number] RECD: 02/24/23 07:45 STATUS: MEGAN RECeleste #: [id number] OLEKSANDR: 02/23/23 14:[address]: Kenyon Espinoza DEPT: SURGICAL PATHOLOGY RECD BY: Bryanna Hewitt ENTERED: 02/24/23 07:46 SP TYPE: COLON BX OTHR DR: DO Dr. Kishore Hale MD Dr. Paige Pierce, MD Tissues: A - Duodenum, NOS B - COLON BIOPSY C - COLON BIOPSY D - Cecum, NOS E - COLON BIOPSY Procedures: Surgery Specimen Level IV Comments: @ Ordering doctor for SUIV edited from to @ by [email or web address] at 02/24/23 1439 @ Submitting doctor edited from to @ by RGOOD at 02/24/23 1438 HEADER OPERATION: Colonoscopy with biopsy and polypectomy, EGD with biopsy PRE-OP DIAGNOSIS: Acute GI bleeding TISSUE SUBMITTED: A - Duodenal polyp biopsy, B - Splenic flexure biopsy ischemic colitis, C - Hepatic flexure polyp biopsy, D - Cecal polyp, E - Transverse colon polyp MICROSCOPIC DIAGNOSIS A. Duodenal polyp, biopsy: Low-grade neuroendocrine tumor. See comment. B. Splenic flexure, biopsy: Ischemic colitis. C. Colonic polyp at hepatic flexure, biopsy: Fragments of tubular adenoma. D. Cecal polyp, biopsy: Fragments of tubular adenoma. E. Transverse colon polyp, biopsy: Fragments of tubular adenoma. AM:lacho 02/25/2023 COMMENT A. Immunohistochemistry ([id number]) supports the above diagnosis. Case has been reviewed in consultation with Dr. Fry who concurs with the above diagnosis. IDC:SHELDON MICROSCOPIC DESCRIPTION Slides are reviewed. GROSS DESCRIPTION A - Received in fixative is one container labeled with the patient's name and designated duodenal polyp biopsy. The specimen consists of multiple irregular fragments of light colon soft tissue that in aggregate measure 1.0 x 0.4 x 0.1 cm. The specimen is totally submitted in one cassette. B - Received in fixative is one container labeled with the patient's name and designated splenic flexure biopsy ischemic colitis. The specimen consists of multiple irregular fragments of light colon soft tissue that in aggregate measure 0.5 x 0.3 x 0.1 cm. The specimen is totally submitted in one cassette. C - Received in fixative is one container labeled with the patient's name and designated hepatic flexure polyp biopsy. The specimen consists of multiple irregular fragments of light colon soft tissue that in aggregate measure 1.0 x 0.3 x 0.1 cm. The specimen is totally submitted in one cassette. D - Received in fixative is one container labeled with the patient's name and designated cecal polyp. The specimen consists of multiple irregular fragments of light colon soft tissue that in aggregate measure 2.0 x 0.5 x 0.1 cm. The specimen is totally submitted in one cassette. E - Received in fixative is one container labeled with the patient's name and designated transverse colon polyp. The specimen consists of multiple irregular fragments of light colon soft tissue that in aggregate measure 2.0 x 1.0 x 0.2 cm. The specimen is totally submitted in one cassette. / SJ:rg 02/24/2023 TC:5 CPT: 87207 x5
--- NOTE | 2023-02-23 15:28 | OP.EGD_ITS ---
Patient Name: Shi Mckeon Procedure Date: 02/23/2023 2:34 PM Date of : 1945 Age: 78 Procedure: Upper GI endoscopy Indications: Iron deficiency anemia, Hematochezia, Melena Providers: Kenyon Espinoza DO Medicines: Monitored Anesthesia Care Patient Profile: This is an 78 year old female. Refer to note in patient chart for documentation of history and physical. Patient has symptoms of acute abdominal cramping and acute epigastric abdominal pain. Complications: No immediate complications. Procedure: Pre-Anesthesia Assessment: - Prior to the procedure, a History and Physical was performed, and patient medications and allergies were reviewed. The patient is competent. The risks and benefits of the procedure and the sedation options and risks were discussed with the patient. All questions were answered and informed consent was obtained. Patient identification and proposed procedure were verified by the physician in the pre-procedure area. Mental Status Examination: normal. Airway Examination: normal oropharyngeal airway and neck mobility. Respiratory Examination: clear to auscultation. CV Examination: normal. Prophylactic Antibiotics: The patient does not require prophylactic antibiotics. Prior Anticoagulants: The patient has taken no 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 or antiplatelet agents. ASA Grade Assessment: II - A patient with mild systemic disease. After reviewing the risks and benefits, the patient was deemed in satisfactory condition to undergo the procedure. The anesthesia plan was to use monitored anesthesia care (MAC). Immediately prior to administration of medications, the patient was re-assessed for adequacy to receive sedatives. The heart rate, respiratory rate, oxygen saturations, blood pressure, adequacy of pulmonary ventilation, and response to care were monitored throughout the procedure. The physical status of the patient was re-assessed after the procedure. After obtaining informed consent, the endoscope was passed under direct vision. Throughout the procedure, the patient's blood pressure, pulse, and oxygen saturations were monitored continuously. The Colonoscope was introduced through the mouth, and advanced to the second part of duodenum. The upper GI endoscopy was accomplished without difficulty. The patient tolerated the procedure well. Scope In: 2:51:18 PM Scope Out: 2:57:43 PM Total Procedure Duration Time 0 hours 6 minutes 25 seconds Findings: LA Grade B (one or more mucosal breaks greater than 5 mm, not extending between the tops of two mucosal folds) esophagitis with no bleeding was found 34 to 37 cm from the incisors. A hiatal hernia was present. No other significant abnormalities were identified in a careful examination of the stomach. A single 20 mm sessile polyp with bleeding was found in the duodenal bulb. Biopsies were taken with a cold forceps for histology. Area was successfully injected with 7 mL of a 0.1 mg/mL solution of epinephrine for drug delivery. Coagulation for hemostasis using heater probe was successful. Estimated blood loss was minimal. Two non-bleeding linear duodenal ulcers with pigmented material were found in the second portion of the duodenum. The largest lesion was 3 mm in largest dimension. Coagulation for hemostasis using argon plasma at 0.3 liters/minute and 20 blair was successful. Impression: - LA Grade B reflux esophagitis with no bleeding. - Hiatal hernia. - A single duodenal polyp. Biopsied. Injected. Treated with a heater probe. - Non-bleeding duodenal ulcers with pigmented material. Treated with argon plasma coagulation (APC). Recommendation: - [facility] patient to [facility] for [facility] care. - Full liquid diet. - Continue present medications. - Await pathology results. - Repeat upper endoscopy in 2 months for surveillance. Procedure Code(s): --- Professional --- 08681, 59, Esophagogastroduodenoscopy, flexible, transoral; with control of bleeding, any method 90585, Esophagogastroduodenoscopy, flexible, transoral; with biopsy, single or multiple 59315, 59,51, Esophagogastroduodenoscopy, flexible, transoral; with directed submucosal injection(s), any substance CPT copyright 2021 [employer]. All rights reserved. The codes documented in this report are preliminary and upon city sanitarian review may be revised to meet current compliance requirements. Kenyon Espinoza DO 02/23/2023 3:27:37 PM This report has been signed electronically. Number of Addenda: 0 Note Initiated On: 02/23/2023 2:34 PM
--- NOTE | 2023-02-23 15:28 | OP.CCLET_ITS ---
02/23/2023 Kishore Ricci MD [address] [phone] Re : Upper GI endoscopy procedure for Shi Mckeon Dear Dr. Ricci This procedure was performed on Thursday, February 23, 2023. My impressions and recommendations are as follows: Impressions : - LA Grade B reflux esophagitis with no bleeding. - Hiatal hernia. - A single duodenal polyp. Biopsied. Injected. Treated with a heater probe. - Non-bleeding duodenal ulcers with pigmented material. Treated with argon plasma coagulation (APC). Recommendations : - Return patient to [facility] for ongoing care. - Full liquid diet. - Continue present medications. - Await pathology results. - Repeat upper endoscopy in 2 months for surveillance. My findings are described in the full procedure note, which is enclosed. If I can be of further assistance, please feel free to contact me at . Sincerely, Kenyon Friend, 02/23/2023 3:27:37 PM This report has been signed electronically.
--- NOTE | 2023-02-23 15:34 | OP.COLON_ITS ---
Patient Name: Shi Mckeon Procedure Date: 02/23/2023 2:57 PM Date of : 1945 Age: 78 Procedure: Colonoscopy Indications: Hematochezia Providers: Kenyon Espinoza DO Medicines: Monitored Anesthesia Care Patient Profile: This is an 78 year old female. Refer to note in patient chart for documentation of history and physical. Patient has symptoms of acute abdominal cramping and acute epigastric abdominal pain. Last Colonoscopy: date unknown. Unable to locate last colonoscopy report. Complications: No immediate complications. Procedure: Pre-Anesthesia Assessment: - Prior to the procedure, a History and Physical was performed, and patient medications and allergies were reviewed. The patient is competent. The risks and benefits of the procedure and the sedation options and risks were discussed with the patient. All questions were answered and informed consent was obtained. Patient identification and proposed procedure were verified by the physician in the pre-procedure area. Mental Status Examination: normal. Airway Examination: normal oropharyngeal airway and neck mobility. Respiratory Examination: clear to auscultation. CV Examination: normal. Prophylactic Antibiotics: The patient does not require prophylactic antibiotics. Prior Anticoagulants: The patient has taken no 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 or antiplatelet agents. ASA Grade Assessment: II - A patient with mild systemic disease. After reviewing the risks and benefits, the patient was deemed in satisfactory condition to undergo the procedure. The anesthesia plan was to use monitored anesthesia care (MAC). Immediately prior to administration of medications, the patient was re-assessed for adequacy to receive sedatives. The heart rate, respiratory rate, oxygen saturations, blood pressure, adequacy of pulmonary ventilation, and response to care were monitored throughout the procedure. The physical status of the patient was re-assessed after the procedure. After I obtained informed consent, the scope was passed under direct vision. Throughout the procedure, the patient's blood pressure, pulse, and oxygen saturations were monitored continuously. The Colonoscope was introduced through the anus and advanced to the cecum, identified by appendiceal orifice and ileocecal valve. The colonoscopy was performed without difficulty. The patient tolerated the procedure well. The quality of the bowel preparation was fair. The ileocecal valve, appendiceal orifice, and rectum were photographed. Scope In: 3:00:18 PM Scope Withdrawal Time 0 hours 10 minutes 4 seconds Scope Out: 3:18:33 PM Total Procedure Duration Time 0 hours 18 minutes 15 seconds Findings: The perianal and digital rectal examinations were normal. Multiple small and large-mouthed diverticula were found in the recto-sigmoid colon, sigmoid colon and descending colon. Moderate rectal prolapse was present. A small rectocele was found. Red blood was found in the sigmoid colon. Fluid aspiration was performed. Segmental severe inflammation characterized by altered vascularity, angiodysplasia, erosions, erythema, friability, granularity and linear erosions was found in the sigmoid colon, in the descending colon, at the splenic flexure and in the transverse colon. Biopsies were taken with a cold forceps for histology. Verification of patient identification for the specimen was done. Estimated blood loss was minimal. A 5 mm polyp was found in the sigmoid colon. The polyp was sessile. The polyp was removed with a jumbo cold forceps. Resection and retrieval were complete. Verification of patient identification for the specimen was done. Estimated blood loss was minimal. Three sessile polyps were found in the splenic flexure, transverse colon and hepatic flexure. The polyps were 1 to 2 mm in size. These polyps were removed with a cold snare. Resection and retrieval were complete. Verification of patient identification for the specimen was done. Estimated blood loss was minimal. A 20 mm polyp was found in the appendiceal orifice. The polyp was sessile. The polyp was removed with a hot snare. Resection and retrieval were complete. Verification of patient identification for the specimen was done. Estimated blood loss was minimal. Retroflexion was not performed due to rectal prolapse Impression: - Preparation of the colon was fair. - Diverticulosis in the recto-sigmoid colon, in the sigmoid colon and in the descending colon. - Rectal prolapse. - Rectocele. - Blood in the sigmoid colon. Fluid aspiration performed. - Segmental severe inflammation was found in the sigmoid colon, in the descending colon, at the splenic flexure and in the transverse colon secondary to ischemic colitis. Biopsied. - One 5 mm polyp in the sigmoid colon, removed with a jumbo cold forceps. Resected and retrieved. - Three 1 to 2 mm polyps at the splenic flexure, in the transverse colon and at the hepatic flexure, removed with a cold snare. Resected and retrieved. - One 20 mm polyp at the appendiceal orifice, removed with a hot snare. Resected and retrieved. Recommendation: - Repeat colonoscopy in 6 months for surveillance. - Continue present medications. Procedure Code(s): --- Professional --- 33769, Colonoscopy, flexible; with removal of tumor(s), polyp(s), or other lesion(s) by snare technique 95124, 59, Colonoscopy, flexible; with biopsy, single or multiple CPT copyright 2021 [employer]. All rights reserved. The codes documented in this report are preliminary and upon hide puller review may be revised to meet current compliance requirements. Kenyon Espinoza DO 02/23/2023 3:33:55 PM This report has been signed electronically. Number of Addenda: 0 Note Initiated On: 02/23/2023 2:57 PM
--- NOTE | 2023-02-23 15:34 | OP.CCLET_ITS ---
02/23/2023 Kishore Ricci MD [address] [id number] Re : Colonoscopy procedure for Shi Mckeon Dear Dr. Ricci This procedure was performed on Thursday, February 23, 2023. My impressions and recommendations are as follows: Impressions : - Preparation of the colon was fair. - Diverticulosis in the recto-sigmoid colon, in the sigmoid colon and in the descending colon. - Rectal prolapse. - Rectocele. - Blood in the sigmoid colon. Fluid aspiration performed. - Segmental severe inflammation was found in the sigmoid colon, in the descending colon, at the splenic flexure and in the transverse colon secondary to ischemic colitis. Biopsied. - One 5 mm polyp in the sigmoid colon, removed with a jumbo cold forceps. Resected and retrieved. - Three 1 to 2 mm polyps at the splenic flexure, in the transverse colon and at the hepatic flexure, removed with a cold snare. Resected and retrieved. - One 20 mm polyp at the appendiceal orifice, removed with a hot snare. Resected and retrieved. Recommendations : - Repeat colonoscopy in 6 months for surveillance. - Continue present medications. My findings are described in the full procedure note, which is enclosed. If I can be of further assistance, please feel free to contact me at . Sincerely, Kenyon Espinoza, 02/23/2023 3:33:55 PM This report has been signed electronically.
--- NOTE | 2023-02-23 18:43 | PCM.PN.HOSP ---
Reason for Visit Reason for Visit: Diagnoses Hypothyroidism, unspecified (02/22/23) Essential (primary) hypertension (02/22/23) Paroxysmal atrial fibrillation (02/22/23) Acute (reversible) ischemia of large intestine, extent unspecified (02/22/23) Gastrointestinal hemorrhage, unspecified (02/22/23) Chronic kidney disease, stage 3 (moderate) (02/22/23) Congenital stenosis of aortic valve (02/22/23) Congenital insufficiency of aortic valve (02/22/23) Presence of other vascular implants and grafts (02/22/23) Subjective Subjective Patient seen at the bedside afternoon after her EGD and colonoscopy, daughter present. Patient was sitting comfortably in bed, conversing normally, no acute distress. Had recovered fully from sedating medications, was alert and awake on my interview. Patient denied any acute pain or discomfort. Has not gotten up from bed yet since coming back from the scopes but does not feel weak at this time. She does feel hungry and wants to eat dinner. Denies any fevers or chills. No other acute concerns at this time. Objective Data Objective Data Vital Signs: Vital Signs Temp Pulse Resp BP Pulse Ox O2 Del Method 96.5 F L 64 17 119/48 L 92 Room Air 02/23/23 16:02 02/23/23 16:02 02/23/23 16:02 02/23/23 16:02 02/23/23 16:02 02/23/23 16:02 Oxygen Delivery Method Room Air Weight: 102.9 kg Body Mass Index (BMI) 38.9 Intake & Output: Intake and Output for Last 24 Hours 02/21/23 02/22/23 02/23/23 23:59 23:59 23:59 Intake Total 50 / 50 743.58 / 743.58 Balance 50 / 50 743.58 / 743.58 Lab / Micro Data 02/23/23 10:37 02/23/23 03:00 Labs: Laboratory Results - last 24 hr 02/22/23 20:10: WBC 9.8, RBC 3.46 L, Hgb 10.1 L, Hct 32.2 L, MCV 93.1, MCH 29.2, MCHC 31.4 L, RDW Std Deviation 47.1 H, RDW Coeff of Pravin 13.9, Plt Count 211, MPV 9.5 02/23/23 03:00: WBC 12.0 H, RBC 3.67 L, Hgb 10.7 L, Hct 34.4 L, MCV 93.7, MCH 29.2, MCHC 31.1 L, RDW Std Deviation 47.5 H, RDW Coeff of Pravin 14.1, Plt Count 229, MPV 9.3, Immature Gran % (Auto) 0.700, Neut % (Auto) 84.8 H, Lymph % (Auto) 6.0 L, Stafford % (Auto) 6.7, Eos % (Auto) 1.4, Baso % (Auto) 0.4, Absolute Neuts (auto) 10.2 H, Absolute Lymphs (auto) 0.72 L, Nucleated RBC % 0, PT 22.5 H, INR 2.0, Sodium 139, Potassium 3.5, Chloride 107, Carbon Dioxide 24.0, Anion Gap 8, BUN 25 H, Creatinine 1.58 H, Estim Creat Clear Calc 24.52, Est GFR (MDRD) Af Amer 41 L, Est GFR (MDRD) Non-Af 33 L, BUN/Creatinine Ratio 15.8, Glucose 106, Calcium 8.5, TSH 6.21 H 02/23/23 10:37: WBC 9.9, RBC 3.39 L, Hgb 10.3 L, Hct 32.2 L, MCV 95.0, MCH 30.4, MCHC 32.0, RDW Std Deviation 49.0 H, RDW Coeff of Pravin 14.0, Plt Count 185, MPV 8.9 Micro: Microbiology 02/22/23 15:12 Urine Catheter - Catheter Urine Culture - Preliminary 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 General Appearance: cooperative and comfortable HEENT normocephalic, head/scalp atraumatic, hearing grossly normal bilaterally, nasal mucous membranes and turbinates normal and moist oral mucous membranes Eyes PERRL, EOMs intact bilaterally and conjunctivae normal Neck full ROM, no lymphadenopathy and supple Lymph Lymphatic: no lymphadenopathy noted Chest inspection of chest normal Resp normal respiratory effort, normal air movement, no use of accessory muscles and clear to auscultation bilaterally Cardio regular rate, regular rhythm, no murmurs and peripheral pulses 2+ throughout GI normal to inspection, nondistended, normoactive bowel sounds, soft to palpation, non-tender and non-distended Back/Spine normal ROM Extremity normal to inspection, full ROM and no pedal edema Skin no rashes or lesions noted Neuro moves all extremities and no focal motor deficits Speech: speech normal Psych mental status grossly normal Assessment & Plan Assessment/Plan (1) Acute ischemic colitis: (2) Acute GI bleeding: (3) Acute UTI: PLAN: Plan Patient is an 78-year-old female who presented to [facility] ED on 02/22/2023 with bright red blood per rectum. 1. Acute GI bleed due to ischemic colitis CT abdomen pelvis on admit showed findings consistent with colitis of the left hemicolon with sigmoid diverticulosis. S/p colonoscopy on 02/23 that showed severe segmental inflammation in the sigmoid colon, descending colon, at the splenic flexure and transverse colon presumed secondary to ischemic colitis. Biopsy sample taken. Hemoglobin stable at baseline 10-11 since admission. ? GI following. Okay to continue home medications as normal. Okay for resuming diet. Will plan to repeat colonoscopy in 6 months to assess for recovery. Will follow-up biopsy results likely after discharge. Monitor CBC tomorrow morning. Will plan to restart home warfarin tomorrow morning if okay with Dr. Espinoza. If patient remains stable overnight, likely okay for discharge home tomorrow. 2. Small non-bleeding duodenal ulcers ? EGD 02/23 showed nonbleeding duodenal ulcers with pigmented material that was treated with APC. Also found a single duodenal polyp, treated with heater probe, and grade B reflux esophagitis with no bleeding. Per GI, will advance diet as tolerated. Plan for repeat upper endoscopy in 2 months for surveillance. Continue home PPI daily. 3. Concern for UTI UA on admit showed 100 leukocyte esterase, positive nitrates, 5-10 WBCs, 1+ bacteria. Urine culture preliminarily positive for > 100K GNR laboratory operations coordinator. Patient denies any urinary symptoms. ? Will opt to start ceftriaxone this evening. Follow-up urine culture results, plan for likely 5-day course of antibiotics, okay to transition to p.o. antibiotics on discharge. 4. 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 INR 1.8 on admit as patient recently held Coumadin for supratherapeutic INR. Coumadin held on admit for GI bleed. Will plan to restart Coumadin tomorrow if okay with GI. Continue home statin, flecainide, metoprolol. Daily EKGs for QTc monitoring needed for flecainide. Chronic medical conditions: ? CKD stage IIIb: Creatinine at baseline, stable. ? Seizure disorder: Continue home Keppra and Tegretol. ? Hypothyroidism: TSH notably 20 on 02/12/2023, repeat TSH on 02/22. Continue home Synthroid. Outpatient follow-up. ? Mood disorder: Continue home duloxetine and nortriptyline. DVT prophylaxis: SCDs CODE STATUS: DNR CCA, DO NOT INTUBATE Expected disposition: Home, tomorrow Total clinical time spent by myself addressing the patient's medical issues, reviewing all the data, and collaborating with patient's care team: 35 minutes. Charges/Coding Visit Charges Inpatient E&M: 80167 Subs Hosp L2
[2023-02-23] MEDS: Nortriptyline 25 MG Capsule 50 MG PO (21:21)
[2023-02-23] MEDS: Atorvastatin Calcium 40 MG Tablet PO (21:21)
[2023-02-23] MEDS: Ceftriaxone 1 GM/50 ML BAG IV (21:27)
[2023-02-24 06:00] VITALS: BMI 38.9
[2023-02-24 06:45] VITALS: BP 120/66; PULSE 95; RESP 16; TEMP 36.4; O2SAT 98
[2023-02-24 06:45] LABS: Hematocrit 30.5 % (37-47); Hemoglobin 9.7 g/dL (12.0-15.0); Mean Corp Hgb Conc 31.8 g/dL (32-36); Mean Corpuscular Hgb 29.9 pg (27.0-32.0); Mean Corpuscular Volume 94.1 fL (81-99); Mean Platelet Vol. 9.3 fl (6.2-12.0); Platelet Count 185 K/mm3 (150-450); RBC Distribution Width CV 13.9 % (11.6-14.6); RBC Distribution Width SD 47.8 fl (35.1-43.9); Red Blood Count 3.24 M/mm3 (4.2-5.4); White Blood Count 6.5 K/mm3 (4.4-11.0)
[2023-02-24] MEDS: Levothyroxine 100 MCG Tablet PO (06:49)
--- NOTE | 2023-02-24 07:00 | PN.GI_ITS ---
Subjective Subjective Patient underwent an EGD and colonoscopy yesterday for GI bleed. She was discovered to have a bleeding polyp in the duodenal bulb that was treated with electrocautery and biopsied. She also had 5 polyps were removed from her colon and also discovered as severe ischemic colitis. She has not had any bleeding at this time. She remains on antibiotics and is tolerating a diet. Objective Data Objective Data Vital Signs: Vital Signs Temp Pulse Resp BP Pulse Ox O2 Del Method 98 F 78 18 132/61 H 100 Room Air 02/24/23 15:18 02/24/23 15:18 02/24/23 15:18 02/24/23 15:18 02/24/23 15:18 02/24/23 15:40 Oxygen Delivery Method Room Air Weight: 227 lb 4.745 oz Body Mass Index (BMI) 38.9 Intake & Output: Intake and Output for Last 24 Hours 02/22/23 02/23/23 02/24/23 23:59 23:59 23:59 Intake Total 50 / 50 793.58 / 1293.58 1340 / 1340 Balance 50 / 50 793.58 / 1293.58 1340 / 1340 Lab / Micro Data 02/24/23 06:15 02/23/23 03:00 Labs: Laboratory Results - last 24 hr 02/24/23 06:15: WBC 6.5, RBC 3.24 L, Hgb 9.7 L, Hct 30.5 L, MCV 94.1, MCH 29.9, MCHC 31.8 L, RDW Std Deviation 47.8 H, RDW Coeff of Pravin 13.9, Plt Count 185, MPV 9.3 02/24/23 10:15: PT 20.6 H, INR 1.8 Micro: Microbiology 02/22/23 15:12 Urine Catheter - Catheter Urine Culture - Final Escherichia coli 02/22/23 13:50 Stool Stool Occult Blood (AGNIESZKA) - Final Occult Blood Positive Physical Exam Const alert, oriented x3 and no apparent distress Constitutional Narrative: Pleasant elderly female, obese, sitting comfortably in bed, conversing normally, no acute distress. General Appearance: cooperative and comfortable HEENT normocephalic, head/scalp atraumatic, hearing grossly normal bilaterally, nasal mucous membranes and turbinates normal and moist oral mucous membranes Eyes PERRL, EOMs intact bilaterally and conjunctivae normal Neck full ROM, no lymphadenopathy and supple Lymph Lymphatic: no lymphadenopathy noted Chest inspection of chest normal Resp normal respiratory effort, normal air movement, no use of accessory muscles and clear to auscultation bilaterally Cardio regular rate, regular rhythm, no murmurs and peripheral pulses 2+ throughout GI normal to inspection, nondistended, normoactive bowel sounds, soft to palpation, non-tender and non-distended Back/Spine normal ROM Extremity normal to inspection, full ROM and no pedal edema Skin no rashes or lesions noted Neuro moves all extremities and no focal motor deficits Speech: speech normal Psych mental status grossly normal Assessment & Plan Assessment/Plan (1) Acute ischemic colitis: (2) Acute GI bleeding: (3) Acute UTI: PLAN: Plan Patient is an 78-year-old female who presented to [facility] ED on 02/22/2023 with bright red blood per rectum. Acute GI bleed due to ischemic colitis CT abdomen pelvis on admit showed findings consistent with colitis of the left hemicolon with sigmoid diverticulosis. S/p colonoscopy on 02/23 that showed severe segmental inflammation in the sigmoid colon, descending colon, at the splenic flexure and transverse colon presumed secondary to ischemic colitis. Biopsy sample taken. Hemoglobin stable at baseline 10-11 since admission. ? GI following. Okay to continue home medications as normal. Okay for resuming diet. Will plan to repeat colonoscopy in 6 months to assess for recovery. Will follow-up biopsy results likely after discharge. Monitor CBC tomorrow morning. Will plan to restart home warfarin tomorrow morning if okay with Dr. Espinoza. If patient remains stable overnight, likely okay for discharge home tomorrow. Small non-bleeding duodenal ulcers ? EGD 02/23 showed nonbleeding duodenal ulcers with pigmented material that was treated with APC. Also found a single duodenal polyp, treated with heater probe, and grade B reflux esophagitis with no bleeding. Per GI, will advance diet as tolerated. Plan for repeat upper endoscopy in 2 months for surveillance. Continue home PPI daily. Charges/Coding Visit Charges Inpatient E&M: 08880 Subs Hosp L3
[2023-02-24 08:40] VITALS: BP 112/97; PULSE 78; RESP 18; TEMP 36.7; O2SAT 98
[2023-02-24] MEDS: OXcarbazepine 150 MG Tablet PO (08:43)
[2023-02-24] MEDS: DULoxetine Hcl 30 MG Capsule 60 MG PO (08:43)
[2023-02-24] MEDS: Flecainide 100 MG Tablet 50 MG PO (08:43)
[2023-02-24 08:44] VITALS: PULSE 78
[2023-02-24] MEDS: Pantoprazole Sodium 40 MG Tablet PO (08:44)
[2023-02-24] MEDS: levETIRAcetam 1,000 MG Tablet 1000 MG PO (08:44)
[2023-02-24] MEDS: Metoprolol(XL)Succ 25 MG Tablet 12.5 MG PO (08:44)
[2023-02-24] MEDS: Allopurinol 100 MG Tablet PO (08:44)
[2023-02-24] MEDS: Vibegron 75 MG TABLET PO (08:44)
[2023-02-24 11:00] LABS: International Normalized Ratio 1.8; Prothrombin Time (Protime)PT. 20.6 SECONDS (11.7-14.9)
[2023-02-24 15:18] VITALS: BP 132/61; PULSE 78; RESP 18; TEMP 36.6; O2SAT 100
--- NOTE | 2023-02-24 16:39 | DCINST_ITS ---
Discharge Instructions Diet Discharge Diet: No restrictions Activity Discharge Activity: Return to Normal Activity Weight Bearing Status: Full weight bearing Follow Up Care Please Follow Up With: Kishore Ricci MD When: As needed Test Results: Test results from this visit will be discussed in further detail at your follow- up appointment, if applicable. Pending Tests Upon Discharge: None Discharge Plan Admission Admit Date/Time: 02/22/23 17:00 Primary Reason for Your Visit: GI bleed Attending Provider: Sav Edmond Primary Care Provider: Kishore Ricci Consulting Providers: Gerri Holloway Instructions Additional Instructions / Restrictions: Please take Keflex for 5 days to complete a 7-day course of antibiotics for your UTI. You are okay to restart your home warfarin tomorrow. Follow-up with your primary care doctor as needed. Discharge Orders/Prescriptions Prescriptions: New cephalexin 500 mg capsule 500 mg PO TID 5 Days Qty: 15 0RF Continued omeprazole 40 mg capsule,delayed release(DR/EC) 40 mg PO DAILY Qty: 90 allopurinol 100 mg tablet 100 mg PO DAILY Qty: 90 levothyroxine 100 mcg tablet 100 mcg PO DAILY Qty: 90 levetiracetam [Keppra] 1,000 mg tablet 1,000 mg PO BID rosuvastatin [Crestor] 20 mg tablet 20 mg PO DAILY amlodipine 10 mg tablet 10 mg PO DAILY duloxetine 30 mg capsule,delayed release(DR/EC) 60 mg PO DAILY oxcarbazepine 150 mg tablet 150 mg PO BID hydrocodone-acetaminophen 5-325 mg tablet 1 tab PO DAILY PRN (Reason: pain (scale score 4-6)) Patient Comments: take 1 tablet by mouth once daily for 28 DAYS metoprolol succinate 25 mg tablet extended release 24 hr 12.5 mg PO DAILY Qty: 90 Cholecalciferol (Vitamin D3) [Vitamin D3] 5,000 UNIT capsule 2,000 unit PO DAILY acetaminophen 500 MG tablet 1,000 mg PO Q8 PRN (Reason: pain 1-10) Qty: 1 0RF Gemtesa 75 mg tablet 75 mg PO DAILY Patient Comments: take 1 tablet by mouth once daily memantine 10 mg tablet 10 mg PO BID nortriptyline 10 MG capsule 50 mg PO QHS flecainide 100 mg tablet 50 mg PO BID warfarin 2 mg tablet 4 mg PO DAILY Protocol: Dose Management Condition: Wednesday Dose/Route: 4 mg Instruction: 2 x 2 mg tablets Condition: Wednesday Dose/Route: 4 mg Instruction: 2 x 2 mg tablets Condition: Wednesday Dose/Route: 4 mg Instruction: 2 x 2 mg tablets Condition: Wednesday Dose/Route: 4 mg Instruction: 2 x 2 mg tablets Condition: Dose/Route: 4 mg Instruction: 2 x 2 mg tablets Condition: Wednesday Dose/Route: 4 mg Instruction: 2 x 2 mg tablets Condition: Wednesday Dose/Route: 4 mg Instruction: 2 x 2 mg tablets Protocol Text: Adjustment Start Date: Wednesday01/19/23 INR Value: 2.5 INR Date: 01/19/23 Recheck Date: 02/16/23 Referrals / Follow Up: Kishore Ricci MD [Primary Care Provider] - Disposition Disposition (needs filled in before D/C Order can be placed): Home, Self Care
--- NOTE | 2023-02-24 16:48 | PCM.DC.SUM ---
Providers Date of Admission: 02/22/23 Date of Discharge: 02/24/23 Primary Care Physician: Dr. Kishore Ricci MD Consultations 02/22/23 18:40 Consult: Gastroenterology Routine Consulting Provider: [facility] Reason for Consult: BRBPR, ?ischemic colitis EMERGENT Consult: No MD Notified: Yes Date Notified: 02/22/23 Time Notified: 17:05 Method of Notification: ED Physician Initiated Reason For Visit: GI BLEED AND COLITIS Diagnosis Discharge Diagnosis (1) Acute ischemic colitis: Status: Acute Code(s): K55.039 - Acute (reversible) ischemia of large intestine, extent unspecified (2) Acute GI bleeding: Status: Acute Code(s): K92.2 - Gastrointestinal hemorrhage, unspecified (3) Acute UTI: Status: Acute Code(s): N39.0 - Urinary tract infection, site not specified Medications at Discharge Home Medications allopurinol 100 mg tablet 100 mg PO DAILY GOUT #90 tabs 02/22/19 levothyroxine 100 mcg tablet 100 mcg PO DAILY THYROID #90 tabs 02/22/19 omeprazole 40 mg capsule,delayed release 40 mg PO DAILY GERD #90 caps 02/22/19 Cholecalciferol (Vitamin D3) [Vitamin D3] 2,000 unit PO DAILY SUPPLEMENT 11/27/19 acetaminophen 500 mg tablet 1,000 mg (2 x 500 mg) PO Q8 PRN pain 1-10 #1 TAB 12/14/19 levetiracetam 1,000 mg tablet (Keppra) 1,000 mg PO BID 06/06/21 rosuvastatin 20 mg tablet (Crestor) 20 mg PO DAILY 06/06/21 duloxetine 30 mg capsule,delayed release 60 mg PO DAILY 09/12/21 hydrocodone-acetaminophen 5-325mg 5mg-325mg 1 tab PO DAILY PRN pain (scale score 4-6) 09/12/21 oxcarbazepine 150 mg tablet 150 mg PO BID 09/12/21 amlodipine 10 mg tablet 10 mg PO DAILY 11/25/21 metoprolol succinate 25 mg tablet,extended release 24 hr 12.5 mg PO DAILY HEART #90 tabs 11/25/21 flecainide 100 mg tablet 50 mg PO BID HEART 12/09/21 warfarin 2 mg tablet 4 mg PO DAILY 05/29/22 memantine 10 mg tablet 10 mg PO BID 02/22/23 nortriptyline 10 mg capsule 50 mg PO QHS 02/22/23 vibegron 75 mg tablet (Gemtesa) 75 mg PO DAILY 02/22/23 cephalexin 500 mg capsule 500 mg PO TID 5 days #15 caps 02/24/23 Hospital Course Operations None Procedures Colonoscopy, EGD and - (CT abdomen/pelvis with IV contrast) Summary of Care Provided Minutes Spent on Discharge: 35 Hospital Course: Patient is an 78-year-old female who presented to [facility] ED on 02/22/2023 with bright red blood per rectum. Short hospital course as noted below. Patient ultimately was discharged home in stable condition on 02/24. 1. Acute GI bleed due to ischemic colitis CT abdomen pelvis on admit showed findings consistent with colitis of the left hemicolon with sigmoid diverticulosis. S/p colonoscopy on 02/23 that showed severe segmental inflammation in the sigmoid colon, descending colon, at the splenic flexure and transverse colon presumed secondary to ischemic colitis. Biopsy sample taken. ? GI followed. Hemoglobin remained stable at baseline around 10 during admission. Per GI, plan is to repeat colonoscopy in 6 months to assess for recovery. GI will also follow-up patient's biopsy results after discharge. Patient okay to restart home warfarin after discharge. 2. Small non-bleeding duodenal ulcers EGD 02/23 showed nonbleeding duodenal ulcers with pigmented material that was treated with APC. Also found a single duodenal polyp, treated with heater probe, and grade B reflux esophagitis with no bleeding. ? GI followed as above. Patient tolerated advancement of diet without issue. Plan is for repeat upper endoscopy in 2 months for surveillance. Continued home PPI daily. 3. UTI UA on admit showed 100 leukocyte esterase, positive nitrates, 5-10 WBCs, 1+ bacteria. Urine culture positive for > 100K pansensitive E. coli. ? Patient treated with ceftriaxone while inpatient, discharged on p.o. Keflex to complete a 7-day course of antibiotics, stop date on 02/28. 4. 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 INR 1.8 on day of discharge. Patient to restart home Coumadin on 02/25. Continue INR checks as normal and adjust dose accordingly. Continued home statin, flecainide, metoprolol. Chronic medical conditions managed during hospitalization: ? CKD stage IIIb: Creatinine at baseline, stable. ? Seizure disorder: Continued home Keppra and Tegretol. ? Hypothyroidism: TSH notably 20 on 02/12/2023, repeat TSH on 02/22. Continued home Synthroid. Outpatient follow-up. ? Mood disorder: Continued home duloxetine and nortriptyline. Total clinical time spent by myself addressing the patient's discharge needs: 35 minutes. Physical Exam Const alert, oriented x3 and no apparent distress Constitutional Narrative: Pleasant elderly female, obese, sitting comfortably in bed, conversing normally, no acute distress. General Appearance: cooperative and comfortable HEENT normocephalic, head/scalp atraumatic, hearing grossly normal bilaterally, nasal mucous membranes and turbinates normal and moist oral mucous membranes Eyes PERRL, EOMs intact bilaterally and conjunctivae normal Neck full ROM, no lymphadenopathy and supple Lymph Lymphatic: no lymphadenopathy noted Chest inspection of chest normal Resp normal respiratory effort, normal air movement, no use of accessory muscles and clear to auscultation bilaterally Cardio regular rate, regular rhythm, no murmurs and peripheral pulses 2+ throughout GI normal to inspection, nondistended, normoactive bowel sounds, soft to palpation, non-tender and non-distended Back/Spine normal ROM Extremity normal to inspection, full ROM and no pedal edema Skin no rashes or lesions noted Neuro moves all extremities and no focal motor deficits Speech: speech normal Psych mental status grossly normal Weight / BMI Weight Weight: 103.1 kg Body Mass Index (BMI) 38.9 ABG / Lab / Microbiology Data 02/24/23 06:15 02/23/23 03:00 Laboratory: Laboratory Results - last 24 hr 02/24/23 06:15: WBC 6.5, RBC 3.24 L, Hgb 9.7 L, Hct 30.5 L, MCV 94.1, MCH 29.9, MCHC 31.8 L, RDW Std Deviation 47.8 H, RDW Coeff of Pravin 13.9, Plt Count 185, MPV 9.3 02/24/23 10:15: PT 20.6 H, INR 1.8 Microbiology: Microbiology 02/22/23 15:12 Urine Catheter - Catheter Urine Culture - Final Escherichia coli 02/22/23 13:50 Stool Stool Occult Blood (AGNIESZKA) - Final Occult Blood Positive D/C Instructions Discharge Diet: No restrictions Weight Bearing Status: Full weight bearing Pending Tests Upon Discharge: None Please Follow Up With: Kishore Ricci MD When: As needed Meaningful Use Info Meaningful Use Diagnoses (Choose all that apply): None applicable Discharge Plan Admission Admit Date/Time: 02/22/23 17:00 Primary Reason for Your Visit: GI bleed Attending Provider: Sav Edmond Primary Care Provider: Kishore Ricci Consulting Providers: Gerri Holloway Instructions Additional Instructions / Restrictions: Please take Keflex for 5 days to complete a 7-day course of antibiotics for your UTI. You are okay to restart your home warfarin tomorrow. Follow-up with your primary care doctor as needed. Discharge Orders/Prescriptions Prescriptions: New cephalexin 500 mg capsule 500 mg PO TID 5 Days Qty: 15 0RF Continued omeprazole 40 mg capsule,delayed release(DR/EC) 40 mg PO DAILY Qty: 90 allopurinol 100 mg tablet 100 mg PO DAILY Qty: 90 levothyroxine 100 mcg tablet 100 mcg PO DAILY Qty: 90 levetiracetam [Keppra] 1,000 mg tablet 1,000 mg PO BID rosuvastatin [Crestor] 20 mg tablet 20 mg PO DAILY amlodipine 10 mg tablet 10 mg PO DAILY duloxetine 30 mg capsule,delayed release(DR/EC) 60 mg PO DAILY oxcarbazepine 150 mg tablet 150 mg PO BID hydrocodone-acetaminophen 5-325 mg tablet 1 tab PO DAILY PRN (Reason: pain (scale score 4-6)) Patient Comments: take 1 tablet by mouth once daily for 28 DAYS metoprolol succinate 25 mg tablet extended release 24 hr 12.5 mg PO DAILY Qty: 90 Cholecalciferol (Vitamin D3) [Vitamin D3] 5,000 UNIT capsule 2,000 unit PO DAILY acetaminophen 500 MG tablet 1,000 mg PO Q8 PRN (Reason: pain 1-10) Qty: 1 0RF Gemtesa 75 mg tablet 75 mg PO DAILY Patient Comments: take 1 tablet by mouth once daily memantine 10 mg tablet 10 mg PO BID nortriptyline 10 MG capsule 50 mg PO QHS flecainide 100 mg tablet 50 mg PO BID warfarin 2 mg tablet 4 mg PO DAILY Protocol: Dose Management Condition: Wednesday Dose/Route: 4 mg Instruction: 2 x 2 mg tablets Condition: Wednesday Dose/Route: 4 mg Instruction: 2 x 2 mg tablets Condition: Wednesday Dose/Route: 4 mg Instruction: 2 x 2 mg tablets Condition: Wednesday Dose/Route: 4 mg Instruction: 2 x 2 mg tablets Condition: Dose/Route: 4 mg Instruction: 2 x 2 mg tablets Condition: Wednesday Dose/Route: 4 mg Instruction: 2 x 2 mg tablets Condition: Wednesday Dose/Route: 4 mg Instruction: 2 x 2 mg tablets Protocol Text: Adjustment Start Date: Wednesday01/19/23 INR Value: 2.5 INR Date: 01/19/23 Recheck Date: 02/16/23 Referrals / Follow Up: Kishore Ricci MD [Primary Care Provider] - 03/03/23 3:20 pm Disposition Disposition (needs filled in before D/C Order can be placed): Home, Self Care Charges/Coding Visit Charges Inpatient E&M: 31704 Disch Hosp >30min
--- NOTE | 2023-02-24 16:58 | CASEMGMT ---
Patient had order for discharge. RN CM in to discuss needs at discharge. Patient denies need or help at discharge, daughter at bedside. Patient had no further questions or concerns at this time.
== END 2023-02-24 17:26 | disposition home or self-care (01) | DRG 397 ==
LOC: ED 16:57 → PCU 18:03
PROVIDERS: Internal Medicine Gastroenterology; Physician Assistant; Admitting Provider Internal Medicine; Emergency Provider Emergency Medicine; PCP Family Medicine; Visit Provider Hospitalist
PROC: 0DJD8ZZ Inspection of Lower Intestinal Tract, Via Natural or Artificial Opening Endoscopic (ICD-10-PCS; CPT 45378; principal; 2023-02-23 14:10)
DX: K55.031 Focal (segmental) acute (reversible) ischemia of large intestine (principal); K26.4 Chronic or unspecified duodenal ulcer with hemorrhage; K57.31 Diverticulosis of large intestine without perforation or abscess with bleeding; C7A.010 Malignant carcinoid tumor of the duodenum; N39.0 Urinary tract infection, site not specified; D63.1 Anemia in chronic kidney disease; D12.3 Benign neoplasm of transverse colon; D12.0 Benign neoplasm of cecum; B96.20 Unspecified Escherichia coli [E. coli] as the cause of diseases classified elsewhere; G40.909 Epilepsy, unspecified, not intractable, without status epilepticus; I48.0 Paroxysmal atrial fibrillation; F39 Unspecified mood [affective] disorder; N18.32 Chronic kidney disease, stage 3b; E03.9 Hypothyroidism, unspecified; I12.9 Hypertensive chronic kidney disease with stage 1 through stage 4 chronic kidney disease, or unspecified chronic kidney disease; K21.00 Gastro-esophageal reflux disease with esophagitis, without bleeding; K44.9 Diaphragmatic hernia without obstruction or gangrene; K31.7 Polyp of stomach and duodenum; K63.5 Polyp of colon; Z95.2 Presence of prosthetic heart valve; Z95.828 Presence of other vascular implants and grafts; N99.3 Prolapse of vaginal vault after hysterectomy; Z66 Do not resuscitate; Z79.01 Long term (current) use of 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s; Z79.899 Other long term (current) drug therapy
CPT/HCPCS: 36415; 74177; 80048; 80053; 81001; 82274; 84443; 85025; 85027; 85610; 86850; 86900; 86901; 87077; 87086; 87088; 87186; 88305; 88341; 88342; 93005; 97162; 99285; J7030; J7120; P9612; Q9967; A4216; J2405

== ENCOUNTER → 2023-03-02 | Outpatient (CLI) | payer MEDICARE, OTHER, SELFPAY ==
[2023-03-02 10:39] LABS: International Normalized Ratio 1.8; Prothrombin Time (Protime)PT. 20.7 SECONDS (11.7-14.9)
== END | disposition home or self-care (01) ==
LOC: LAB 08:56
PROVIDERS: PCP Family Medicine; Visit Provider Internal Medicine Cardiovascular Disease
DX: Z95.2 Presence of prosthetic heart valve (principal)
CPT/HCPCS: 36415; 85610

== ENCOUNTER → 2023-03-05 | Outpatient (CLI) | payer MEDICARE, OTHER, SELFPAY ==
[2023-03-05 10:57] LABS: International Normalized Ratio 2.1; Prothrombin Time (Protime)PT. 23.5 SECONDS (11.7-14.9)
== END | disposition home or self-care (01) ==
LOC: LAB 08:35
PROVIDERS: PCP Family Medicine; Visit Provider Internal Medicine Cardiovascular Disease
DX: Z95.2 Presence of prosthetic heart valve (principal)
CPT/HCPCS: 36415; 85610

== ENCOUNTER 2023-03-17 10:48 | Observation (INO) | payer MEDICARE, OTHER, SELFPAY ==
[2023-03-17 10:48] VITALS: BP 117/84; PULSE 96; RESP 16; TEMP 35.4; O2SAT 99
--- NOTE | 2023-03-17 11:18 | ED.VIS.GI ---
HPI HPI - GI History of Present Illness Chief Complaint: GI Bleed Informant: patient and family Narrative Narrative: Patient presents with repeat GI bleeding. She had been in the hospital recently diagnosed with what was likely ischemic colitis. She is on long-term Coumadin because she has a mechanical aortic heart valve that is been in for over 20 years. Her bleeding stopped and her hemoglobin was stable in the hospital she went home and she is actually been doing quite well for 2 to 3 weeks. She started getting nauseated last night. She vomited some but had no black or blood in the vomit. She is not nauseated now. Then she started with diarrhea. She has now had about 3 if not more episodes of bloody diarrhea with some clots. She does feel little lightheaded. Her family member states that she looks more pale than she did just yesterday. No syncope. She is not actually having pain in the abdomen now. [facility] Medical History (Updated 03/17/23 @ 12:[address] Francisco Singh MD) Aortic stenosis with bicuspid valve Ascending aortic aneurysm Esophageal reflux Essential hypertension Head injuries History of gout History of venous thrombosis and embolism Hyperparathyroidism Hyperuricemia Hypothyroidism nursing home current use of 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 Migraines Near syncope Paroxysmal atrial fibrillation Physical debility Seizure disorder Spinal stenosis Stage 4 chronic kidney disease Thoracic aortic aneurysm (TAA) Urine retention Home Medications allopurinol 100 mg tablet 100 mg PO DAILY GOUT #90 tabs 02/22/19 [History Last Taken Unknown] levothyroxine 100 mcg tablet 100 mcg PO DAILY THYROID #90 tabs 02/22/19 [History Last Taken 11/30/19 07:30 100 MCG] omeprazole 40 mg capsule,delayed release 40 mg PO DAILY GERD #90 caps 02/22/19 [History Last Taken 11/30/19 07:30 40 MG] Cholecalciferol (Vitamin D3) [Vitamin D3] 2,000 unit PO DAILY SUPPLEMENT 11/27/19 [History Last Taken Unknown] acetaminophen 500 mg tablet 1,000 mg (2 x 500 mg) PO Q8 PRN pain 1-10 #1 TAB 12/14/19 [Rx Last Taken Unknown] levetiracetam 1,000 mg tablet (Keppra) 1,000 mg PO BID 06/06/21 [History Last Taken Unknown] rosuvastatin 20 mg tablet (Crestor) 20 mg PO DAILY 06/06/21 [History Last Taken Unknown] duloxetine 30 mg capsule,delayed release 60 mg PO DAILY 09/12/21 [History Last Taken Unknown] hydrocodone-acetaminophen 5-325mg 5mg-325mg 1 tab PO DAILY PRN pain (scale score 4-6) 09/12/21 [History Last Taken Unknown] oxcarbazepine 150 mg tablet 150 mg PO BID 09/12/21 [History Last Taken Unknown] amlodipine 10 mg tablet 10 mg PO DAILY 11/25/21 [History Last Taken Unknown] metoprolol succinate 25 mg tablet,extended release 24 hr 12.5 mg PO DAILY HEART #90 tabs 11/25/21 [History Last Taken Unknown] flecainide 100 mg tablet 50 mg PO BID HEART 12/09/21 [History Last Taken Unknown] warfarin 2 mg tablet 4 mg PO DAILY 05/29/22 [History Last Taken Unknown] memantine 10 mg tablet 10 mg PO BID 02/22/23 [History Last Taken Unknown] nortriptyline 10 mg capsule 50 mg PO QHS 02/22/23 [History Last Taken Unknown] vibegron 75 mg tablet (Gemtesa) 75 mg PO DAILY 02/22/23 [History Last Taken Unknown] cephalexin 500 mg capsule 500 mg PO TID 5 days #15 caps 02/24/23 [Rx Last Taken Unknown] Allergy/AdvReac Type Severity Reaction Status Date / Time celecoxib [From Celebrex] Allergy Severe Hives, Verified 02/22/23 13:00 swelling, difficulty breathing Sulfa (Sulfonamide Allergy Severe Hives, Verified 02/22/23 13:00 Antibiotics) swelling, difficulty breathing gemfibrozil AdvReac Intermediate Nausea,myal Verified 02/22/23 13:00 gias Family History Mother CVA (cerebral vascular accident) Breast cancer Hypertension CAD (coronary artery disease) Father Hypertension CAD (coronary artery disease) Surgical History Fracture of ankle, bimalleolar, left, closed H/O chest tube placement (05/07/01) History of bilateral breast reduction surgery (2008) History of left heart catheterization (12/07/15) History of loop recorder History of lumpectomy (2009) History of open reduction and internal fixation (ORIF) procedure (11/30/19) History of thumb surgery (2004) History of tilt table evaluation (05/21/16) History of total abdominal hysterectomy (1974) Hx of aortic valve replacement, mechanical (04/05/01) Hx of ascending aorta replacement (04/05/01) [facility] Smoking Status: Never smoker ROS ROS ED ROS Narrative CONSTITUTIONAL: Patient is nontoxic in appearance. The patient looks comfortable. She does look pale HEENT: No notable trauma. Mucous membranes moist. EYES: She does have pallor. CARDIOVASCULAR: Regular rate. She has a very obvious snap/click consistent with heart valve. RESPIRATORY: No respiratory distress. Breathing is unlabored. No wheezes. No rhonchi. No rales. No pain with a deep breath. GASTROINTESTINAL: Not distended. Bowel sounds are normal to slightly increased. No tenderness. No guarding. No rebound. No palpable mass. No bruit. There is a little bit of pink near the rectum. Catheter was placed and no obvious blood in the urine. GENITOURINARY: No tenderness over the bladder. MUSCULOSKELETAL: Atraumatic. No significant peripheral edema. NEUROLOGICAL: Patient is alert and appropriate. No focal deficit noted. SKIN: No significant bruising. She does have some pallor of the palms. PSYCHIATRIC: Patient is calm. Mood is appropriate. EXAM Physical Exam Const Vital Signs: 03/17/23 10:48 Temperature 95.8 F L Temperature Source Temporal Pulse Rate 96 Respiratory Rate 16 Blood Pressure 117/84 H Blood Pressure Mean 95 Pulse Ox 99 Oxygen Delivery Method Room Air MDM MDM MDM Narrative Medical decision making narrative: Patient CBC shows anemia at 10 7 but this is better than discharge. But family states she looks paler than she did just yesterday. And her story is for an acute blood loss. This may still go down. Her platelets were normal at 210. Her INR is up at 3.2 but for her that is therapeutic. Electrolytes show BUN and creatinine are really at her baseline. Liver function test show no marked abnormalities. Urine did not show signs of infection at this time. Patient was not having pain. She had occasional cramp. We did not repeat the CT today. I discussed the case with Dr. Espinoza who knows her. Since she is such a high risk patient on Coumadin he did recommend admission observation. We will hold her Coumadin for now. I discussed the case with the hospitalist. Lab Data Attestation: I reviewed the patient's lab results. Labs: Laboratory Results - last 24 hr 03/17/23 03/17/23 11:29 11:35 WBC 9.5 RBC 3.69 L Hgb 10.7 L Hct 33.4 L MCV 90.5 MCH 29.0 MCHC 32.0 RDW Std Deviation 45.3 H RDW Coeff of Pravin 13.6 Plt Count 210 MPV 9.2 Immature Gran % (Auto) 0.300 Neut % (Auto) 87.2 H Lymph % (Auto) 4.6 L [place] % (Auto) 6.9 Eos % (Auto) 0.8 Baso % (Auto) 0.2 Absolute Neuts (auto) 8.3 H Absolute Lymphs (auto) 0.44 L Nucleated RBC % 0 Differential Comment SCANNED PT 33.1 H INR 3.2 Sodium 144 Potassium 3.7 Chloride 108 H Carbon Dioxide 28.0 Anion Gap 8 BUN 25 H Creatinine 1.67 H Estim Creat Clear Calc 23.20 Est GFR (MDRD) Af Amer 38 L Est GFR (MDRD) Non-Af 31 L BUN/Creatinine Ratio 15.0 Glucose 97 Lactic Acid 1.4 Calcium 8.8 Total Bilirubin 0.40 AST 18 ALT 21 Alkaline Phosphatase 86 Total Protein 6.4 Albumin 3.5 Globulin 2.9 Albumin/Globulin Ratio 1.2 Urine Color Yellow Urine Clarity Sl. Cloudy Urine pH 5.0 Ur Specific [place] 1.020 Urine Protein 30 H Urine Glucose (UA) Normal Urine Ketones 5 H Urine Occult Blood 10 H Urine Nitrite Negative Urine Bilirubin Negative Urine Urobilinogen Normal Ur Leukocyte Esterase 25 H Urine RBC 0-5 SEEN Urine WBC 0-5 SEEN Ur Squamous Epith Cells 0-5 SEEN Urine Bacteria 1+ Hyaline Casts 0-5 SEEN Urine Mucus 0 SEEN Management Discussion w/another healthcare provider: Hospitalist and Financial Services Auditor Discharge Plan Triage Chief Complaint: GI Bleed ED Provider: Francisco Singh Dx/Rx/DC Orders Clinical Impression: Acute lower GI bleeding, Warfarin-induced coagulopathy, History of ischemic colitis Prescriptions: No Action omeprazole 40 mg capsule,delayed release(DR/EC) 40 mg PO DAILY Qty: 90 allopurinol 100 mg tablet 100 mg PO DAILY Qty: 90 levothyroxine 100 mcg tablet 100 mcg PO DAILY Qty: 90 levetiracetam [Keppra] 1,000 mg tablet 1,000 mg PO BID rosuvastatin [Crestor] 20 mg tablet 20 mg PO DAILY amlodipine 10 mg tablet 10 mg PO DAILY duloxetine 30 mg capsule,delayed release(DR/EC) 60 mg PO DAILY oxcarbazepine 150 mg tablet 150 mg PO BID hydrocodone-acetaminophen 5-325 mg tablet 1 tab PO DAILY PRN (Reason: pain (scale score 4-6)) Patient Comments: take 1 tablet by mouth once daily for 28 DAYS metoprolol succinate 25 mg tablet extended release 24 hr 12.5 mg PO DAILY Qty: 90 Cholecalciferol (Vitamin D3) [Vitamin D3] 5,000 UNIT capsule 2,000 unit PO DAILY acetaminophen 500 MG tablet 1,000 mg PO Q8 PRN (Reason: pain 1-10) Qty: 1 0RF Gemtesa 75 mg tablet 75 mg PO DAILY Patient Comments: take 1 tablet by mouth once daily memantine 10 mg tablet 10 mg PO BID nortriptyline 10 MG capsule 50 mg PO QHS cephalexin 500 mg capsule 500 mg PO TID 5 Days Qty: 15 0RF flecainide 100 mg tablet 50 mg PO BID warfarin 2 mg tablet 4 mg PO DAILY Protocol: Dose Management Condition: Wednesday Dose/Route: 4 mg Instruction: 2 x 2 mg tablets Condition: Wednesday Dose/Route: 4 mg Instruction: 2 x 2 mg tablets Condition: Wednesday Dose/Route: 4 mg Instruction: 2 x 2 mg tablets Condition: Wednesday Dose/Route: 4 mg Instruction: 2 x 2 mg tablets Condition: Dose/Route: 4 mg Instruction: 2 x 2 mg tablets Condition: Wednesday Dose/Route: 6 mg Instruction: 3 x 2 mg tablets Condition: Wednesday Dose/Route: 4 mg Instruction: 2 x 2 mg tablets Protocol Text: Adjustment Start Date: Wednesday03/05/23 INR Value: 2.1 INR Date: 03/05/23 Recheck Date: 03/17/23 Primary Care Provider: Kishore Ricci Referrals: Kishore Ricci MD [Primary Care Provider] - Disposition Disposition: [facility]
[2023-03-17 11:38] VITALS: BMI 39.2
[2023-03-17 11:43] LABS: Mucous, Urine 0 SEEN /hpf (<or=2+)
[2023-03-17 11:52] LABS: Absolute Lymphocyte Count 0.44 X10^3/uL (0.83-4.51); Absolute Neutrophil Count 8.3 X10^3/uL (2.0-7.7); Basophil# 0.02 X10^3/uL; Basophil% 0.2 % (0-1); Eosinophil# 0.08 X10^3/uL; Eosinophils% 0.8 % (0-5); Hematocrit 33.4 % (37-47); Hemoglobin 10.7 g/dL (12.0-15.0); Lymphocyte # 0.44 X10^3/ul (0.83-4.51); Lymphocyte % 4.6 % (19-41); Mean Corpuscular Volume 90.5 fL (81-99); Mean Platelet Vol. 9.2 fl (6.2-12.0); Monocyte# 0.65 X10^3/uL; Monocyte% 6.9 % (0-10); NRBC Flagged by Analyzer 0 % (0-5); Neutrophil # 8.25 X10^3/uL (2.7-7.7); Neutrophil % 87.2 % (47-70); POSITIVE DIFFERENTIAL YES; Platelet Count 210 K/mm3 (150-450); RBC Distribution Width CV 13.6 % (11.6-14.6); RBC Distribution Width SD 45.3 fl (35.1-43.9); Red Blood Count 3.69 M/mm3 (4.2-5.4); White Blood Count 9.5 K/mm3 (4.4-11.0)
[2023-03-17 11:56] LABS: Color, Urine Yellow (Yellow); Glucose, Dipstick Normal (Normal); Ketone-Dipstick 5 mg/dl (Negative); Leukocyte Esterase-Dipstick 25 /ul (Negative); Nitrite-Dipstick Negative (Negative); Occult Blood-Urine 10 /ul (Negative); Protein-Dipstick 30 mg/dl (Negative); Urine Bilirubin Dipstick Negative (Negative); Urine Clarity Sl. Cloudy (Clear); Urine Urobilinogen Normal (Normal)
[2023-03-17 11:57] LABS: Differential Indicated SCAN CRITERIA MET
[2023-03-17 12:00] LABS: ALB/GLOB Ratio 1.2 RATIO (0.9-2.4); AST(SGOT) 18 U/L (15-37); Alanine Aminotransfer ALT/SGPT 21 U/L (13-56); Albumin, Serum 3.5 g/dL (3.2-5.0); Alkaline Phosphatase 86 U/L (45-117); Anion Gap 8 (5-15); BUN 25 mg/dL (7-18); Calcium,Total 8.8 mg/dL (8.5-10.1); Chloride 108 mmol/L (98-107); Creatinine, Serum 1.67 mg/dL (0.55-1.02); EST Glomerular Filtration Rate 31 mL/min (>60); Est Glom Filt Rate - Afr Amer 38 mL/min (>60); Globulin 2.9 g/dL (2.2-4.2); Glucose 97 mg/dL (74-106); Potassium 3.7 mmol/L (3.5-5.1); Protein, Total 6.4 g/dL (6.4-8.2); Sodium Level 144 mmol/L (136-145)
[2023-03-17 12:02] LABS: Bacteria 1+ /hpf (None Seen); Hyaline Cast 0-5 SEEN /lpf (0-5); Red Blood Cells-Urine 0-5 SEEN /hpf (0-5); Squamous Epithelial Cells - UA 0-5 SEEN /hpf (5-10); White Blood Cells 0-5 SEEN /hpf (0-5)
[2023-03-17 12:02] LABS: International Normalized Ratio 3.2; Prothrombin Time (Protime)PT. 33.1 SECONDS (11.7-14.9)
[2023-03-17 12:05] LABS: Lactic Acid 1.4 mmol/L (0.4-1.9)
[2023-03-17 12:23] LABS: Differential Comment SCANNED
--- OUTSIDE RECORDS SUMMARY | 2023-03-17 12:44 | XMS RPT_ITS | CCD ---
Author Name Unknown Address [address] [place] [address] Organization [facility] Care Team Providers Care Leguillon Debeader Name Role Phone Kishore Ricci MD Primary Care Provider JAILYN MO MD Primary Care Physician ANTONIO SHAH Attending Unavailable JAILYN MO MD Primary Care Unavailable ANTONIO SHAH Referring Unavailable Kishore Ricci MD Primary Care Provider Allergies Allergy Classification Reported Allergen(s) Allergy Type Date of Onset Reaction(s) Facility (2 sources) celecoxib Drug Allergy 5 Shortness of Breath [facility] Work Phone: (2 sources) Gemfibrozil Drug Allergy 7 GI Upset, Myalgia [facility] (2 sources) Sulfonamides (Antibiotic) Drug Allergy 1 Unknown [facility] (1 source) Sulfamethoxazole; 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: [sulfamethoxazole ] Drug Allergy [facility] Medications Current Medications Medication Drug Class(es) Dates Sig (Normalized) Sig (Original) acetaminophen 325 mg / HYDROcodone bitartrate 5 mg oral tablet (1 source) Opioid Agonist Start: 06-15-2014 take 1 tablet by mouth every six hours [place] 325- 5 mg oral tablet Dose = [...] sources) Long-term current use of 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; 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: [residential (current) use of 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s] Onset: 11-15-2014 11-15-2014 [...] Author Start: 11-13-2022 Influenza vaccination INFLUENZA (#1) [facility] Start: 09-12-2022 DIABETES SCREEN DIABETES SCREEN [facility] Start: 03-15-2022 ADVANCE DIRECTIVE DISCUSSION ADVANCE DIRECTIVE DISCUSSION [facility] Start: 03-15-2022 DEPRESSION ASSESSMENT DEPRESSION ASS ESSMENT [facility] Start: 11-13-2021 Influenza vaccination INFLUENZA (#1) [facility] Start: 07-15-2021 SERUM CREATININE SERUM CREATININE [facility] Start: 03-15-2021 ADVANCE DIRECTIVE DISCUSSION ADVANCE DIRECTIVE DISCUSSION [facility] Start: 11-13-2020 COVID-19 VACCINE (3 - Booster for Pfizer series) COVID-19 VACCINE (3 - Booster for Pfizer series) [facility] Start: 09-12-2020 HEMOGLOBIN/HEMATOCRIT HEMOGLOBIN/HEM ATOCRIT [facility] Start: 08-08-2020 COVID-19 VACCINE (3 - Pfizer series) COVID-19 VACCINE (3 - Pfizer series) [facility] Start: 11-29-2018 Adult depression scr eening assessment DEPRESSION SCREENING [facility] Start: 01-15-2008 BONE DENSITY BONE DENSITY [facility] Start: 01-15-2008 PNEUMOCOCCAL: 65+ (1 - PCV) PNEUMOCOCCAL: 65+ (1 - PCV) [facility] Start: 01-15-2008 PNEUMOCOCCAL: 65+ (2 - PCV) PNEUMOCOCCAL: 65+ (2 - PCV) [facility] Start: 1993 SHINGRIX VACCINE (1 of 2) HSU GRIX VACCINE (1 of 2) [facility] Start: 1962 Urine microalbumin profile DTAP,TDAP ,TD (1 - Tdap) [facility] Start: 1961 ANNUAL PCP TEAM UNDERGROUND PRODUCTION FOREPERSON RENETTA DISEASE VISIT ANNUAL PCP TEAM CHRONIC DISEASE VISIT [facility] Start: 1961 BP CONTROLLED (<130/80) BP CONTROLLE D (<130/80) [facility] Start: 1961 HEPATITIS C SCREENING HEPATITIS C DE MONAE [facility] c Immunizations Immunization Date Immunization Notes Care Provider Leonidas shen 06-15-2014 tetanus and diphther ia toxoids, adsorbed, preservative free, for adult use (2 Lf of tetanus toxoid and 2 Lf of diphtheria toxoid) ANTONIO SHAH MD [facility] 12-13-2000 pneumococcal polysaccharide vaccine, 23 valent Richie Beebe MD Work Phone: [facility] Payers Date Payer Category Payer [employer] ( and others) [id number] 2022 Medicare [id number] 2020 Unknown FOR LIFE [id number] 2020-Present [phone] [place] [address] Indemnity [id number] 2020 Unknown FOR LIFE [id number] 2020-Present [phone] [address] [place] [address] Indemnity [id number] 2009 Medicare MEDICARE MEDICAR E A AND B [id number] 2009-Present [phone] [address] [address] [place] [address] Medicare [id number] 2009 Medicare MEDICARE MEDICAR E A AND B [id number] 2009-Present [phone] [place] [address] Medicare [id number] 1943 Unknown [id number] Social History Date Type Detail Facility Tobacco smoking status NHIS Never smoked tobacco [facility] Start: 02-27-2021 Alcohol intake 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 Start: 02-17-2020 End: 02-27-2021 History of Social function [facility] Start: 02-17-2020 End: 02-27-2021 Tobacco use panel [facility] Adult Depression Scr eening Assessment 2 [facility] Functional Status Date Assessment Result Facility 06-08-2022 Functional Status Home Living Ad ditional Information OBJECTIVE Posture: forward head posture Sensation: no abnormalities or asymmetries Reflexes: NT Edema: palpation of bulge at mid section of L humerus - suspect muscle tear and retraction Shoulder AROM: flexion 90deg, abduction 90deg, IR and ER functional MMT: RUHarry 06/17 [facility] Note 11-11-2022 Telephone Encounter - Brandie Hernandez [...] if the patient would go to the [place] location or go to the [place] location. Left the patient a voice message to call the office to schedule an appointment with a neurologist for cognitive decline. Fax received at [place] office from [facility] requesting patient be seen by Dr. Lopez for cognitive decline. Demographics and most recent OV note included. Fax scanned into patients chart as Consult - Neurology. Routing TE to Brandie Mehta for scheduling. JULES Zaidi documented in this encounter [facility] Note 10-09-2021 Telephone Encounter - Tita Cordoba - 10/09/2021 8:41 AM EDT Note Date & Type Note Facility 10-09-2021 Miscellaneous Notes Call from patient requesting refill. Pending Prescriptions Disp Refills FLECAINIDE 100 MG TABLET 180 tablet 3 Sig: TAKE 1 TABLET EVERY 12 HOURS MURIEL: Yes Patient last seen 02/27/21 Tita Cordoba documented in this encounter [facility] History of Past illness Narrative 05-25-2017 Note Date & Type Note Facility documented as of this encounter (statuses as of 10/09/2021) [facility] History of Past illness Narrative 05-25-2017 Note Date & Type Note Facility documented as of this encounter (statuses as of 11/12/2022) [facility] Evaluation + Plan note Note Date & Type Note Facility Evaluation + Plan note No data available for this section [facility] Discharge instructions Note Date & Type Note Facility Hospital Discharge instructions No data available for this section [facility] Progress note Note Date & Type Note Facility Progress note No data available for this section [facility] Advance Directives No Advanced Directives Records FoundDocuments on File Type Date Recorded 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 Advance Directive(s) 02/17/2021 1:38 PM [...] or prosecute any alcohol or drug abuse patient.[facility] the event this information is protected by the Federal Confidentiality of Alcohol and Drug Abuse Patient Records regulations: The Federal rules restrict any use of the information to criminally investigate or prosecute any alcohol or drug abuse patient.[facility] Reason for Visit (unrecogniz ed section and content) Reason Comments Consult Referral Request Care Teams (unrecognized sec tion and content) Leguillon Debeader Relationship Specialty Start Date End Date Kishore Rcici MD PCP - General Family Medicine 11/25/15 INFORMATION SOURCE (unrecogn ized section and content) DATE CREATED AUTHOR AUTHOR'S ORGANIZ ATION 11/14/2022 [facility] FOR RECORDS PERTAINING TO PATIENTS WHO ARE [...] BE BASED ON THE PRIMARY CLINICAL RECORDS. [facility]. provides no warranty or guarantee of the accuracy or completeness of information in this document.
[2023-03-17 13:00] VITALS: BP 115/56; PULSE 80; RESP 16; O2SAT 98
--- NOTE | 2023-03-17 13:09 | NURSING ---
MED SURG OBS KOTSONIS GI BLEED, HX ISCHEMIC BOWEL, MECHANICAL AORTIC VALVE
[2023-03-17 13:11] VITALS: BP 115/56; PULSE 64; RESP 14; TEMP 36.6; O2SAT 99
--- OUTSIDE RECORDS SUMMARY | 2023-03-17 13:27 | XMS RPT_ITS | CCD ---
Author Name Unknown Address [address] [place] [address] Organization [facility] Care Team Providers Care Burn Table Operator Name Role Phone Kishore Ricci MD Primary Care Provider JAILYN MO MD Primary Care Physician [phone] ANTONIO SHAH Attending Unavailable JAILYN MO MD Primary Care Unavailable ANTONIO SHAH Referring Unavailable Kishore Ricci MD Primary Care Provider Allergies Allergy Classification Reported Allergen(s) Allergy Type Date of Onset Reaction(s) Facility (2 sources) celecoxib Drug Allergy 5 Shortness of Breath [facility] Work Phone: (2 sources) Gemfibrozil Drug Allergy 7 GI Upset, Myalgia [facility] (2 sources) Sulfonamides (Antibiotic) Drug Allergy 1 Unknown [facility] (1 source) Sulfamethoxazole; 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: [sulfamethoxazole ] Drug Allergy [facility] Medications Current Medications Medication Drug Class(es) Dates Sig (Normalized) Sig (Original) acetaminophen 325 mg / HYDROcodone bitartrate 5 mg oral tablet (1 source) Opioid Agonist Start: 06-15-2014 take 1 tablet by mouth every six hours [place] 325- 5 mg oral tablet Dose = [...] Author Start: 11-13-2022 Influenza vaccination INFLUENZA (#1) [facility] Start: 09-12-2022 DIABETES SCREEN DIABETES SCREEN [facility] Start: 03-15-2022 ADVANCE DIRECTIVE DISCUSSION ADVANCE DIRECTIVE DISCUSSION [facility] Start: 03-15-2022 DEPRESSION ASSESSMENT DEPRESSION ASS ESSMENT [facility] Start: 11-13-2021 Influenza vaccination INFLUENZA (#1) [facility] Start: 07-15-2021 SERUM CREATININE SERUM CREATININE [facility] Start: 03-15-2021 ADVANCE DIRECTIVE DISCUSSION ADVANCE DIRECTIVE DISCUSSION [facility] Start: 11-13-2020 COVID-19 VACCINE (3 - Booster for Pfizer series) COVID-19 VACCINE (3 - Booster for Pfizer series) [facility] Start: 09-12-2020 HEMOGLOBIN/HEMATOCRIT HEMOGLOBIN/HEM ATOCRIT [facility] Start: 08-08-2020 COVID-19 VACCINE (3 - Pfizer series) COVID-19 VACCINE (3 - Pfizer series) [facility] Start: 11-29-2018 Adult depression scr eening assessment DEPRESSION SCREENING [facility] Start: 01-15-2008 BONE DENSITY BONE DENSITY [facility] Start: 01-15-2008 PNEUMOCOCCAL: 65+ (1 - PCV) PNEUMOCOCCAL: 65+ (1 - PCV) [facility] Start: 01-15-2008 PNEUMOCOCCAL: 65+ (2 - PCV) PNEUMOCOCCAL: 65+ (2 - PCV) [facility] Start: 1993 SHINGRIX VACCINE (1 of 2) HSU GRIX VACCINE (1 of 2) [facility] Start: 1962 Urine microalbumin profile DTAP,TDAP ,TD (1 - Tdap) [facility] Start: 1961 ANNUAL PCP TEAM WHITE SIDEWALL TIRE BUFFER RENETTA DISEASE VISIT ANNUAL PCP TEAM CHRONIC DISEASE VISIT [facility] Start: 1961 BP CONTROLLED (<130/80) BP CONTROLLE D (<130/80) [facility] Start: 1961 HEPATITIS C SCREENING HEPATITIS C CT [facility] Immunizations Immunization Date Immunization Notes Care Provider Leonidas shen 06-15-2014 tetanus and diphther ia toxoids, adsorbed, preservative free, for adult use (2 Lf of tetanus toxoid and 2 Lf of diphtheria toxoid) ANTONIO SHAH MD [facility] 12-13-2000 pneumococcal polysaccharide vaccine, 23 valent Richie Beebe MD Work Phone: [facility] Payers Date Payer Category Payer [employer] ( and others) [id number] 2022 Medicare [id number] 2020 Unknown FOR LIFE [id number] 2020-Present [phone] [address] [place] [address] Indemnity [id number] 2020 Unknown FOR LIFE [id number] 2020-Present [phone] [address] [place] [address] Indemnity [id number] 2009 Medicare MEDICARE MEDICAR E A AND B [id number] 2009-Present [phone] [address] [address] [place] [address] Medicare [id number] 2009 Medicare MEDICARE MEDICAR E A AND B [id number] 2009-Present [phone] [place] [address] Medicare [id number] 1943 Unknown [id number] Social History Date Type Detail Facility Tobacco smoking status NHIS Never smoked tobacco [facility] Start: 02-27-2021 Alcohol intake Current non-dr pinion polisher of alcohol (finding) [facility] Start: 1945 Sex Assigned At Not on file [facility] Sex Assigned At Sex [facility] Start: 02-17-2020 End: 02-27-2021 History of Social function [facility] Start: 02-17-2020 End: 02-27-2021 Tobacco use panel [facility] Adult Depression Scr eening Assessment 2 [facility] Functional Status Date Assessment Result Facility 06-08-2022 Functional Status Home Living Ad ditional Information OBJECTIVE Posture: forward head posture Sensation: no abnormalities or asymmetries Reflexes: NT Edema: palpation of bulge at mid section of L humerus - suspect muscle tear and retraction Shoulder AROM: flexion 90deg, abduction 90deg, IR and ER functional MMT: RUHarry 06/17 [facility] Note 11-11-2022 Telephone Encounter - Brandie [...] if the patient would go to the [place] location or go to the [place] location. Left the patient a voice message to call the office to schedule an appointment with a neurologist for cognitive decline. Fax received at [place] office from [facility] requesting patient be seen by Dr. Lopez for cognitive decline. Demographics and most recent OV note included. Fax scanned into patients chart as Consult - Neurology. Routing TE to Brandie Mehta for scheduling. JULES Zaidi documented in this encounter [facility] Note 10-09-2021 Telephone Encounter - Tita Cordoba - 10/09/2021 8:41 AM EDT Note Date & Type Note Facility 10-09-2021 Miscellaneous Notes Call from patient requesting refill. Pending Prescriptions Disp Refills FLECAINIDE 100 MG TABLET 180 tablet 3 Sig: TAKE 1 TABLET EVERY 12 HOURS MURIEL: Yes Patient last seen 02/27/21 Tita Cordoba documented in this encounter [facility] History of Past illness Narrative 05-25-2017 Note Date & Type Note Facility documented as of this encounter (statuses as of 10/09/2021) [facility] History of Past illness Narrative 05-25-2017 Note Date & Type Note Facility documented as of this encounter (statuses as of 11/12/2022) [facility] Evaluation + Plan note Note Date & Type Note Facility Evaluation + Plan note No data available for this section [facility] Hospital Discharge instructions Note Date & Type Note Facility Hospital Discharge instructions No data available for this section [facility] Progress note Note Date & Type Note Facility Progress note No data available for this section [facility] Advance Directives No Advanced Directives Records FoundDocuments on File Type Date Recorded Patient District Manager Postal Service Expl anation Advance Directive(s) 02/17/2021 1:38 PM [...] or prosecute any alcohol or drug abuse [facility] the event this information is protected by the Federal Confidentiality of Alcohol and Drug Abuse Patient Records regulations: The Federal rules restrict any use of the information to criminally investigate or prosecute any alcohol or drug abuse patient.[facility] Reason for Visit (unrecogniz ed section and content) Reason Comments Consult Referral Request Care Teams (unrecognized sec tion and content) Burn Table Operator Relationship Specialty Start Date End Date Kishore Ricci MD PCP - General Family Medicine 11/25/15 INFORMATION SOURCE (unrecogn ized section and content) DATE CREATED AUTHOR AUTHOR'S ORGANIZ ATION 11/14/2022 [facility] FOR RECORDS PERTAINING TO PATIENTS WHO ARE [...] BE BASED ON THE PRIMARY CLINICAL RECORDS. [facility] [facility] [facility]. provides no warranty or guarantee of the accuracy or completeness of information in this document.
[2023-03-17 13:40] VITALS: BP 120/60; PULSE 78; RESP 18; TEMP 36.9; O2SAT 98; BMI 37.2
--- NOTE | 2023-03-17 16:31 | HP.PCM.HOS_ITS ---
HPI - General General Date of Admission: 03/17/23 HPI Narrative CHANNING CANCHOLA, is a 78 F who presents to the hospital with nausea and vomiting that started last evening after she had Moraes's and then this morning she noticed blood in her bowel movements as well as in her depends. Some of it was bright red others were clots. She was recently admitted in the beginning of February with what was felt to be an ischemic colitis she had a colonoscopy that demonstrated diverticulosis, she also had blood in her sigmoid colon and she had segmental severe inflammation in the sigmoid and descending colon and at the splenic flexure consistent with ischemic colitis. At that time she also had an EGD which demonstrated reflux esophagitis with multiple duodenal ulcers that did not demonstrate any signs of recent bleeding. She did not notice any blood in her emesis and in the ER her hemoglobin was 10.7. Unfortunately her care is complicated by the fact that she has a mechanical aortic valve and must remain on anticoagulation. [facility] Medical History (Updated 03/17/23 @ 14:26 by Dara Cantor) Aortic stenosis with bicuspid valve Ascending aortic aneurysm Atrial fibrillation Chronic pain Dementia Depression Esophageal reflux Essential hypertension GERD (gastroesophageal reflux disease) GI bleed Head injuries History of gout History of venous thrombosis and embolism Hyperparathyroidism Hypertension Hyperuricemia Hypothyroidism Kidney stones detention current use of 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 Migraines Near syncope Paroxysmal atrial fibrillation Physical debility Seizure disorder Seizures Spinal stenosis Stage 4 chronic kidney disease Thoracic aortic aneurysm (TAA) Urine retention Home Medications allopurinol 100 mg tablet 100 mg PO DAILY GOUT #90 tabs 02/22/19 [History Last Taken 03/17/23] levothyroxine 100 mcg tablet 100 mcg PO DAILY THYROID #90 tabs 02/22/19 [History Last Taken 03/17/23] omeprazole 40 mg capsule,delayed release 40 mg PO DAILY GERD #90 caps 02/22/19 [History Last Taken 03/17/23] levetiracetam 1,000 mg tablet (Keppra) 1,000 mg PO BID EPILEPSY 06/06/21 [Histor y Last Taken 03/17/23] rosuvastatin 20 mg tablet (Crestor) 20 mg PO DAILY CHOLESTEROL 06/06/21 [History Last Taken 03/17/23] hydrocodone-acetaminophen 5-325mg 5mg-325mg 1 tab PO BID PAIN 09/12/21 [History Last Taken Unknown] oxcarbazepine 150 mg tablet 150 mg PO BID EPILESPSY 09/12/21 [History Last Taken 03/17/23] amlodipine 10 mg tablet 10 mg PO DAILY BLOOD PRESSURE 11/25/21 [History Last Taken 03/17/23] metoprolol succinate 25 mg tablet,extended release 24 hr 12.5 mg PO DAILY HEART #90 tabs 11/25/21 [History Last Taken 03/17/23] flecainide 100 mg tablet 50 mg PO BID HEART 12/09/21 [History Last Taken 03/17/23] memantine 10 mg tablet 10 mg PO BID MEMORY 02/22/23 [History Last Taken 03/17/23 ] vibegron 75 mg tablet (Gemtesa) 75 mg PO DAILY OVERACTIVE BLADDER 02/22/23 [History Last Taken 03/17/23] cholecalciferol (vitamin D3) 125 mcg (5,000 unit) capsule 125 mcg PO DAILY SUPPLEMENT 03/17/23 [History Last Taken 03/17/23] duloxetine 60 mg capsule,delayed release 60 mg PO DAILY DEPRESSION 03/17/23 [History Last Taken 03/17/23] metaxalone 400 mg tablet 400 mg PO BID MUSCLE SPASMS/PAIN 03/17/23 [History Last Taken 03/17/23] mirtazapine 7.5 mg tablet 3.75 - 7.5 mg PO QHS PRN DEPRESSON 03/17/23 [History Last Taken Unknown] nitroglycerin 0.4 mg sublingual tablet (Nitrostat) 0.4 mg sublingual Q5M PRN CHEST PAIN 03/17/23 [History Last Taken Unknown] nortriptyline 50 mg capsule 100 mg PO DAILY DEPRESSION 03/17/23 [History Last Taken 03/17/23] vitamin A 2,500 unit-vit C 100 mg-biotin 2,500 apa-vuvo-rejogd capsule (Jgkr-Ifmy-Ztbr (vit A,K-hybdoq-Bl-Cu)) 1 cap PO DAILY SUPPLEMENT 03/17/23 [History Last Taken 03/17/23] warfarin 4 mg tablet 4 mg PO DAILY BLOOD THINNER 03/17/23 [History Last Taken 03/17/23] Allergy/AdvReac Type Severity Reaction Status Date / Time celecoxib [From Celebrex] Allergy Severe Hives, Verified 02/22/23 13:00 swelling, difficulty breathing Sulfa (Sulfonamide Allergy Severe Hives, Verified 02/22/23 13:00 Antibiotics) swelling, difficulty breathing gemfibrozil AdvReac Intermediate Nausea,myal Verified 02/22/23 13:00 gias Family History Mother CVA (cerebral vascular accident) Breast cancer Hypertension CAD (coronary artery disease) Father Hypertension CAD (coronary artery disease) Surgical History (Updated 03/17/23 @ 14:26 by Dara Cantor) Fracture of ankle, bimalleolar, left, closed H/O chest tube placement (05/07/01) History of appendectomy History of bilateral breast reduction surgery (2008) History of left heart catheterization (12/07/15) History of loop recorder History of lumpectomy (2009) History of open reduction and internal fixation (ORIF) procedure (11/30/19) History of thumb surgery (2004) History of tilt table evaluation (05/21/16) History of total abdominal hysterectomy (1974) Hx of aortic valve replacement, mechanical (04/05/01) Hx of ascending aorta replacement (04/05/01) [facility] Smoking Status: Never smoker ROS Constitutional Constitutional: Denies chills, fatigue, fever(s) or malaise Eyes Eyes: Denies blurry vision ENT HEENT: Denies headache(s) or nasal discharge Cardiovascular Cardiovascular: Denies chest pain, dyspnea on exertion or syncope Respiratory/Chest Respiratory/Chest: Denies cough, shortness of breath at rest or shortness of breath with exertion Gastrointestinal Gastrointestinal: Reports hematochezia, melena, nausea and vomiting; Denies constipation or diarrhea Genitourinary Genitourinary: Denies dysuria Neurologic Neurologic: Denies focal weakness, numbness or tremor(s) Psychiatric Psychiatric: Denies anxiety or depression Vital Signs Vital Signs Vital Signs: 03/17/23 10:48 03/17/23 13:00 03/17/23 13:11 Temperature 95.8 F L 97.8 F Temperature Source Temporal Pulse Rate 96 80 64 Respiratory Rate 16 16 14 Blood Pressure 117/84 H 115/56 L 115/56 L Blood Pressure Mean 95 75 75 Blood Pressure Source Blood Pressure Position Blood Pressure Location Pulse Ox 99 98 99 Oxygen Delivery Method Room Air Room Air 03/17/23 13:40 Temperature 98.5 F Temperature Source Temporal Pulse Rate 78 Respiratory Rate 18 Blood Pressure 120/60 Blood Pressure Mean 80 Blood Pressure Source Monitor Blood Pressure Position Semi-Fowlers Blood Pressure Location Left Arm Pulse Ox 98 Oxygen Delivery Method Room Air Weight Weight: 217 lb Body Mass Index (BMI) 37.2 Physical Exam Narrative General: Alert, Oriented x3, Cooperative, No apparent distress HEENT: Atraumatic, PERRLA, EOMI, Normocephalic Oral: Moist Mucosa Neck: Supple, No JVD Lungs: Diminished, Normal air movement, No rhonchi, No wheeze, No rales Cardiovascular: Regular rate, Regular Rhythm, Normal S1, Normal S2, No murmurs, aortic valve click Abdomen: Soft, Non Tender, Non-Distended, No Hepato-splenomegaly Extremities: No edema, Capillary Refill Less than 3 Seconds Skin: No rashes, No breakdown, somewhat pale Musculoskeletal: No Tenderness to Palpation of Joints or Extremities Neurological: Moves all extremities, no focal deficits, Motor Exam 5/5 strength throughout, Sensory exam intact to light touch and pain Psych/Mental Status: Normal Affect, Appropriate Results Lab / Micro Data 03/17/23 11:35 03/17/23 11:35 Labs: Laboratory Results - last 24 hr 03/17/23 11:29: Urine Color Yellow, Urine Clarity Sl. Cloudy, Urine pH 5.0, Ur Specific [place] 1.020, Urine Protein 30 H, Urine Glucose (UA) Normal, Urine Ketones 5 H, Urine Occult Blood 10 H, Urine Nitrite Negative, Urine Bilirubin Negative, Urine Urobilinogen Normal, Ur Leukocyte Esterase 25 H, Urine RBC 0-5 SEEN, Urine WBC 0-5 SEEN, Ur Squamous Epith Cells 0-5 SEEN, Urine Bacteria 1+, Hyaline Casts 0-5 SEEN, Urine Mucus 0 SEEN 03/17/23 11:35: WBC 9.5, RBC 3.69 L, Hgb 10.7 L, Hct 33.4 L, MCV 90.5, MCH 29.0, MCHC 32.0, RDW Std Deviation 45.3 H, RDW Coeff of Pravin 13.6, Plt Count 210, MPV 9.2, Immature Gran % (Auto) 0.300, Neut % (Auto) 87.2 H, Lymph % (Auto) 4.6 L, [place] % (Auto) 6.9, Eos % (Auto) 0.8, Baso % (Auto) 0.2, Absolute Neuts (auto) 8.3 H, Absolute Lymphs (auto) 0.44 L, Nucleated RBC % 0, Differential Comment SCANNED, PT 33.1 H, INR 3.2, Sodium 144, Potassium 3.7, Chloride 108 H, Carbon Dioxide 28.0, Anion Gap 8, BUN 25 H, Creatinine 1.67 H, Estim Creat Clear Calc 23.20, Est GFR (MDRD) Af Amer 38 L, Est GFR (MDRD) Non-Af 31 L, BUN/Creatinine Ratio 15.0, Glucose 97, Lactic Acid 1.4, Calcium 8.8, Total Bilirubin 0.40, AST 18, ALT 21, Alkaline Phosphatase 86, Total Protein 6.4, Albumin 3.5, Globulin 2.9, Albumin/Globulin Ratio 1.2 Micro: Microbiology 03/17/23 14:25 Stool Clostridioides difficile (PCR) - Final Assessment & Plan Assessment/Plan (1) Acute lower GI bleeding: PLAN: Plan 1. Acute lower GI bleed/GERD ? Unclear as to the severity as her initial hemoglobin is 10.7 ? We will place her on IV PPI and consult gastroenterology ? We will place her on a clear liquid diet ? Will recheck her hemoglobin at 7 PM and then again tomorrow morning to determine next steps in care ? Her care is complicated by the need for anticoagulation secondary to her mechanical aortic valve, will not actively reverse her INR but will also hold her Coumadin ? Stool studies have been ordered by GI 2. HTN/HLD/mechanical aortic valve replacement ? Given the history of GI bleed we will hold her blood pressure medications ? Will continue with her flecainide and metoprolol for rate control ? Will monitor and make adjustments as necessary ? We will hold her Coumadin monitor her INR she should stay between 2 and 3 for an arctic valve replacement though she states she states that she was told to stay between 2.5-3.5 ? Will not reverse her INR at this time unless absolutely necessary 3. Seizure disorder ? Stable ? Can resume her home medications 4. Hypothyroidism ? Stable ? Continue with Synthroid 5. Anxiety/depression ? Stable ? Continue with her home medications DVT: INR 3.2 today 75 minutes was spent on direct patient care, including documentation as well as chart review and collaboration with colleagues Charges/Coding Visit Charges Inpatient E&M: 74804 Init Hosp L3
[2023-03-17 19:45] LABS: Hematocrit 31.8 % (37-47); Hemoglobin 10.2 g/dL (12.0-15.0)
[2023-03-17 21:25] VITALS: BP 136/62; PULSE 80; RESP 18; TEMP 37.3; O2SAT 92
[2023-03-17] MEDS: 0.9% Saline Lock 10 ML Syringe IV (21:27)
[2023-03-17] MEDS: Pantoprazole Sodium 40 MG in 0.9% Normal Saline (100mL MB+) 100 ML 330 MG IV (21:27)
[2023-03-17] MEDS: Atorvastatin Calcium 40 MG Tablet PO (21:30)
[2023-03-17] MEDS: Flecainide 100 MG Tablet 50 MG PO (21:30)
[2023-03-17] MEDS: HYDROcodone Bitartrate/Apap 5/325 Tablet PO (21:30)
[2023-03-17] MEDS: OXcarbazepine 150 MG Tablet PO (21:30)
[2023-03-17] MEDS: levETIRAcetam 1,000 MG Tablet 1000 MG PO (21:30)
[2023-03-17] MEDS: Memantine Hydrochloride 10 MG Tablet PO (21:31)
[2023-03-18] VITALS (7 sets, daily range): BP systolic 108–155; BP diastolic 54–66; PULSE 70–81; RESP 16–18; TEMP 36.4–37.2; O2SAT 93–98
[2023-03-18] MEDS: Levothyroxine 100 MCG Tablet PO (05:16)
[2023-03-18 07:26] LABS: Absolute Lymphocyte Count 0.75 X10^3/uL (0.83-4.51); Absolute Neutrophil Count 7.3 X10^3/uL (2.0-7.7); Basophil# 0.02 X10^3/uL; Basophil% 0.2 % (0-1); Eosinophil# 0.22 X10^3/uL; Eosinophils% 2.4 % (0-5); Hematocrit 31.9 % (37-47); Hemoglobin 9.9 g/dL (12.0-15.0); Lymphocyte # 0.75 X10^3/ul (0.83-4.51); Lymphocyte % 8.2 % (19-41); Mean Corpuscular Hgb 28.8 pg (27.0-32.0); Mean Corpuscular Volume 92.7 fL (81-99); Monocyte# 0.81 X10^3/uL; Monocyte% 8.9 % (0-10); NRBC Flagged by Analyzer 0 % (0-5); Neutrophil # 7.27 X10^3/uL (2.7-7.7); Platelet Count 172 K/mm3 (150-450); RBC Distribution Width CV 13.5 % (11.6-14.6); Red Blood Count 3.44 M/mm3 (4.2-5.4); White Blood Count 9.1 K/mm3 (4.4-11.0)
[2023-03-18 07:53] LABS: Anion Gap 7 (5-15); BUN 26 mg/dL (7-18); BUN/Creat Ratio 17.8 RATIO (10-20); Calcium,Total 8.5 mg/dL (8.5-10.1); Chloride 108 mmol/L (98-107); Creatinine, Serum 1.46 mg/dL (0.55-1.02); EST Glomerular Filtration Rate 37 mL/min (>60); Est Glom Filt Rate - Afr Amer 44 mL/min (>60); Estimated Creatinine Clearance 26.54 ml/min; Glucose 87 mg/dL (74-106); Potassium 3.1 mmol/L (3.5-5.1); Sodium Level 142 mmol/L (136-145)
[2023-03-18 09:10] LABS: International Normalized Ratio 3.4; Prothrombin Time (Protime)PT. 34.8 SECONDS (11.7-14.9)
--- NOTE | 2023-03-18 09:54 | PCM.PN.HOSP ---
Reason for Visit Reason for Visit: Diagnoses Gastrointestinal hemorrhage, unspecified (03/17/23) Subjective Subjective Patient is an 78-year-old lady with recent admission for GI bleed. Patient ischemic colitis. EGD also demonstrated small nonbleeding duodenal ulcers presented with bleeding per rectum. Admitted to regular nursing floor Objective Data Objective Data Vital Signs: Vital Signs Temp Pulse Resp BP Pulse Ox O2 Del Method 98.9 F 72 18 155/66 H 98 Room Air 03/18/23 05:14 03/18/23 05:14 03/18/23 05:14 03/18/23 05:14 03/18/23 05:14 03/18/23 05:14 Oxygen Delivery Method Room Air Weight: 98.43 kg Body Mass Index (BMI) 37.2 Intake & Output: Intake and Output for Last 24 Hours 03/16/23 03/17/23 03/18/23 23:59 23:59 23:59 Intake Total 410 / 410 200 / 200 Balance 410 / 410 200 / 200 Lab / Micro Data 03/18/23 07:14 03/18/23 07:14 Labs: Laboratory Results - last 24 hr 03/17/23 11:29: Urine Color Yellow, Urine Clarity Sl. Cloudy, Urine pH 5.0, Ur Specific [place] 1.020, Urine Protein 30 H, Urine Glucose (UA) Normal, Urine Ketones 5 H, Urine Occult Blood 10 H, Urine Nitrite Negative, Urine Bilirubin Negative, Urine Urobilinogen Normal, Ur Leukocyte Esterase 25 H, Urine RBC 0-5 SEEN, Urine WBC 0-5 SEEN, Ur Squamous Epith Cells 0-5 SEEN, Urine Bacteria 1+, Hyaline Casts 0-5 SEEN, Urine Mucus 0 SEEN 03/17/23 11:35: WBC 9.5, RBC 3.69 L, Hgb 10.7 L, Hct 33.4 L, MCV 90.5, MCH 29.0, MCHC 32.0, RDW Std Deviation 45.3 H, RDW Coeff of Pravin 13.6, Plt Count 210, MPV 9.2, Immature Gran % (Auto) 0.300, Neut % (Auto) 87.2 H, Lymph % (Auto) 4.6 L, [place] % (Auto) 6.9, Eos % (Auto) 0.8, Baso % (Auto) 0.2, Absolute Neuts (auto) 8.3 H, Absolute Lymphs (auto) 0.44 L, Nucleated RBC % 0, Differential Comment SCANNED, PT 33.1 H, INR 3.2, Sodium 144, Potassium 3.7, Chloride 108 H, Carbon Dioxide 28.0, Anion Gap 8, BUN 25 H, Creatinine 1.67 H, Estim Creat Clear Calc 23.20, Est GFR (MDRD) Af Amer 38 L, Est GFR (MDRD) Non-Af 31 L, BUN/Creatinine Ratio 15.0, Glucose 97, Lactic Acid 1.4, Calcium 8.8, Total Bilirubin 0.40, AST 18, ALT 21, Alkaline Phosphatase 86, Total Protein 6.4, Albumin 3.5, Globulin 2.9, Albumin/Globulin Ratio 1.2 03/17/23 19:28: Hgb 10.2 L, Hct 31.8 L 03/18/23 07:14: WBC 9.1, RBC 3.44 L, Hgb 9.9 L, Hct 31.9 L, MCV 92.7, MCH 28.8, MCHC 31.0 L, RDW Std Deviation 46.0 H, RDW Coeff of Pravin 13.5, Plt Count 172, MPV 9.0, Immature Gran % (Auto) 0.300, Neut % (Auto) 80.0 H, Lymph % (Auto) 8.2 L, [place] % (Auto) 8.9, Eos % (Auto) 2.4, Baso % (Auto) 0.2, Absolute Neuts (auto) 7.3, Absolute Lymphs (auto) 0.75 L, Nucleated RBC % 0, PT 34.8 H, INR 3.4, Sodium 142, Potassium 3.1 L, Chloride 108 H, Carbon Dioxide 27.0, Anion Gap 7, BUN 26 H, Creatinine 1.46 H, Estim Creat Clear Calc 26.54, Est GFR (MDRD) Af Amer 44 L, Est GFR (MDRD) Non-Af 37 L, BUN/Creatinine Ratio 17.8, Glucose 87, Calcium 8.5 Micro: Microbiology 03/17/23 14:25 Stool C. difficile GDH Antigen & Toxins - Final 03/17/23 14:25 Stool Clostridioides difficile (PCR) - Final Physical Exam Narrative GENERAL: cooperative HEENT: Atraumatic; normocephalic EYES; Anicteric, Normal Conjunctiva NECK; supple, normal thyroid, RESPIRATORY: Diminished to auscultation CARDIOVASCULAR: Regular S1 S2, GI: soft, normoactive bowel sounds, : No Renal angle tenderness; EXTREMITIES: No edema, no clubbing, MUSCULOSKELETAL: no muscle wasting NEURO: Awake; no lateralizing signs. SKIN: No Rash PSYCH; Flat affect Assessment & Plan Assessment/Plan (1) Acute lower GI bleeding: PLAN: Plan Patient is an 78-year-old lady with recent admission for GI bleed. Patient ischemic colitis. EGD also demonstrated small nonbleeding duodenal ulcers presented with bleeding per rectum. Admitted to regular nursing floor with consult placed to GI . Acute lower GI bleed ? In a patient with known ischemic colitis. Admitted to regular nursing floor managed with IV fluids, H&H every 6 with consultation placed to GI 2. Diarrhea ? Possibly related to patient colitis patient was Seen enteric precautions while stool for C. difficile is being ruled out 3. Valvular heart disease ? With history of mechanical aortic valve replacement, complicating care. Patient Coumadin was held on admission. Plan is to maintain INR between 2.5-3.5. 4. Hypothyroidism - Patient is on levothyroxine home dose continued 5. Seizure disorder ? Patient is on Keppra did continue 6. Hypertension - Blood pressure controlled, home medications continued with dose adjustment as needed 7. Dyslipidemia -Patient is on statin therapy, continued at home dose 8. Recent findings of small nonbleeding duodenal ulcers ? Patient is on PPI continue 9. Depression ? Patient is on nortriptyline as well as duloxetine 10. Paroxysmal A-fib ? Patient is on flecainide as well as systemic anticoagulation with Coumadin 11. History of venous thromboembolism ? Patient is on Coumadin with a therapeutic INR 12. DVT prophylaxis ? Patient is on Coumadin with a therapeutic INR Time spent in the patient's overall evaluation,decision-making process, review of diagnostic data, adjustment of management, discussion with other providers, nursing nursing and ancillary staff involved in patient's care documentation, 50 Minutes Charges/Coding Visit Charges Inpatient E&M: 84296 [facility] Hosp L3
[2023-03-18] MEDS: Allopurinol 100 MG Tablet PO (10:11)
[2023-03-18] MEDS: Pantoprazole Sodium 40 MG in 0.9% Normal Saline (100mL MB+) 100 ML 330 MG IV ×2 (10:11→22:39)
[2023-03-18] MEDS: DULoxetine Hcl 60 MG Capsule PO (10:11)
[2023-03-18] MEDS: OXcarbazepine 150 MG Tablet PO ×2 (10:11→22:39)
[2023-03-18] MEDS: Memantine Hydrochloride 10 MG Tablet PO ×2 (10:12→22:39)
[2023-03-18] MEDS: levETIRAcetam 1,000 MG Tablet 1000 MG PO ×2 (10:12→22:39)
[2023-03-18] MEDS: Nortriptyline 25 MG Capsule 100 MG PO (10:12)
[2023-03-18] MEDS: Flecainide 100 MG Tablet 50 MG PO ×2 (10:13→22:39)
[2023-03-18] MEDS: Metoprolol(XL)Succ 25 MG Tablet 12.5 MG PO (10:13)
[2023-03-18] MEDS: 0.9% Saline Lock 10 ML Syringe IV (10:14)
[2023-03-18] MEDS: HYDROcodone Bitartrate/Apap 5/325 Tablet PO ×2 (10:17→22:44)
--- NOTE | 2023-03-18 12:28 | NURSING ---
responded to assist emergancy call light. entered room to find PT/OT x3 with patient. pt awake and alert sitting in the chair. per Therapy pt was walking around in the room and had walk from the bed to the door and was calling back to recliner when pt stopped answering them and when they saw her face she appeared she was going to pass out. pt was sat down on folding chair. pt assisted x3 back to bed and layed supine, vitals checked. pt states feels better now. denies all chestpain or palpiations. denies any blood stools this a.m. pt states she has this at home. states she has seen Dr. Leblanc for similar episodes but her HR and BP were lower than and he had changed her medication. states hx seizures last dec 07. states wasn't had a grand mal seizure for long times. she states she gets a tingling sensation which is what she recalls from the and then next she knows she's on the floor. pt denies having the tingling sensation with this episode and does not feel like this was her seizure activity. bp rechecked after pt laying for 4-5min. 103/55, 73, 92% no distress noted. denies all needs at present.
--- NOTE | 2023-03-18 12:42 | NURSING ---
Primary RN updated on episode with therapy and text to Dr. Acevedo.
--- NOTE | 2023-03-18 13:32 | CHAPLAIN ---
Type of Pastoral Visit _x__ Initial Visit ___ Follow-up Visit ___ On-call Visit ___ General Patient Visit ___ Spiritual Assessment ___ Family Conference ___ Bereavement ___ Rapid Response ___ Code Blue ___ Other (describe below) Pastoral Care Referral From _x__ Patient ___ Family ___ Nurse ___ Physician ___ Special Education Secretary ___ Physician Primary Care Sports Medicine ___ Other (describe below) Sacrament/Intervention _x__ Active listening ___ Anointing ___ Christianity ___ Bereavement ___ Communion ___ Oralia exploration ___ ___ Life review _x__ Prayer ___ Reconciliation ___ Sacrament of Sick _x__ Supportive presence ___ Wedding ___ Other (describe below) Pastoral Comments patient updated this lead mechanical engineer on recent health as she had just been to hospital recently; prayer and presence welcomed
--- NOTE | 2023-03-18 15:40 | CASEMGMT ---
RN?CM?COMMERCIAL ANALYST?CM?to room to meet with patient for initial transition planning/care coordination?assessment.?RN?CM?introduced self and role at [facility].? Pt voices understanding and consents to?assessment?at this time.? Pt resting in bed in no distress at this time.?Daughters, Fátima and Desire, @ bedside. Pt is A/O at this time and answers all questions appropriately.?? Care providers, pharmacy, and demographics verified/updated at this time. PCP: Dr Ricci Specialists: Dr Leblanc-cardiology, Dr Andres-podiatry, Dr Cordoba-urology, Dr Koch-pain mgnt. Preferred Pharmacy: [facility] Retail Insurance: AARP MCR, Prescription Benefit:?yes LNOK: Dtr, Fátima/POA. Dtr, Bella. [place] who [place] Arrangements: lives alone in [facility] w/one step to enter. Independent w/ADL's, IADL's, and manages her own medications. DME: [facility] has the following DME: shower chair, RTS, cane, grab bars, walker, W/C, stair lift?Pt states no need for further DME at this time.? HHC/SNF: Hx [facility]. Pt states she would like [facility] again and declines wanting list of other HHC options. Pt states she only wants PT, not PT. 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 Order placed for [facility]: PT eval and treat. Call placed to Brandie @ [facility] and referral made. They are able to accept pt w/SOC Wednesday. Pt and dtr's made aware. Pt wishes to return home and states has no concerns with going home at time of discharge.?CM?to follow for any further discharge planning/needs.? Pt and daughters voice no further concerns/needs at this time.? Advised them to ask for?CM?if any further questions/concerns/needs arise.? They voice understanding. PLAN:[facility]. James PAPPASN?RN?CM
--- NOTE | 2023-03-18 16:57 | CASEMGMT ---
Spoke with patient to complete GAUTHIER form. GAUTHIER form explained to patient who voiced understanding.. Original form placed in pt?s chart and copy provided to patient. Andreina Millan, Discharge Planning Asst
--- NOTE | 2023-03-18 18:58 | EX.PCM.CON.G ---
HPI Consult Data Date of Consult: 03/18/23 HPI Narrative Reason for Consultation: GI bleed HPI Narrative: CHANNING CANCHOLA, is a 78 F who presents to the hospital with nausea and vomiting that started last evening after she had Moraes's. In the morning she noticed blood in her bowel movements as well as in her depends. Some of it was bright red others were clots. She was recently admitted in the beginning of February with what was felt to be an ischemic colitis she had a colonoscopy that demonstrated diverticulosis, she also had blood in her sigmoid colon and she had segmental severe inflammation in the sigmoid and descending colon and at the splenic flexure consistent with ischemic colitis. At that time she also had an EGD which demonstrated reflux esophagitis with multiple duodenal ulcers that did not demonstrate any signs of recent bleeding. She did not notice any blood in her emesis and in the ER her hemoglobin was 10.7. Unfortunately her care is complicated by the fact that she has a mechanical aortic valve and must remain on anticoagulation. Since stopping her anticoagulation she has not had any more bleeding. However she has had a lot of nausea and vomiting. As per daughters and the patient has been going on for about a year and a half. She can see undigested food in her vomitus on a daily basis. [facility] Medical History (Updated 03/17/23 @ 14:26 by Dara Cantor) Aortic stenosis with bicuspid valve Ascending aortic aneurysm Atrial fibrillation Chronic pain Dementia Depression Esophageal reflux Essential hypertension GERD (gastroesophageal reflux disease) GI bleed Head injuries History of gout History of venous thrombosis and embolism Hyperparathyroidism Hypertension Hyperuricemia Hypothyroidism Kidney stones residential current use of 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 Migraines Near syncope Paroxysmal atrial fibrillation Physical debility Seizure disorder Seizures Spinal stenosis Stage 4 chronic kidney disease Thoracic aortic aneurysm (TAA) Urine retention Home Medications allopurinol 100 mg tablet 100 mg PO DAILY GOUT #90 tabs 02/22/19 [History Last Taken 03/17/23] levothyroxine 100 mcg tablet 100 mcg PO DAILY THYROID #90 tabs 02/22/19 [History Last Taken 03/17/23] omeprazole 40 mg capsule,delayed release 40 mg PO DAILY GERD #90 caps 02/22/19 [History Last Taken 03/17/23] levetiracetam 1,000 mg tablet (Keppra) 1,000 mg PO BID EPILEPSY 06/06/21 [History Last Taken 03/17/23] rosuvastatin 20 mg tablet (Crestor) 20 mg PO DAILY CHOLESTEROL 06/06/21 [History Last Taken 03/17/23] hydrocodone-acetaminophen 5-325mg 5mg-325mg 1 tab PO BID PAIN 09/12/21 [History Last Taken Unknown] oxcarbazepine 150 mg tablet 150 mg PO BID EPILESPSY 09/12/21 [History Last Taken 03/17/23] amlodipine 10 mg tablet 10 mg PO DAILY BLOOD PRESSURE 11/25/21 [History Last Taken 03/17/23] metoprolol succinate 25 mg tablet,extended release 24 hr 12.5 mg PO DAILY HEART #90 tabs 11/25/21 [History Last Taken 03/17/23] flecainide 100 mg tablet 50 mg PO BID HEART 12/09/21 [History Last Taken 03/17/23] memantine 10 mg tablet 10 mg PO BID MEMORY 02/22/23 [History Last Taken 03/17/23] vibegron 75 mg tablet (Gemtesa) 75 mg PO DAILY OVERACTIVE BLADDER 02/22/23 [History Last Taken 03/17/23] cholecalciferol (vitamin D3) 125 mcg (5,000 unit) capsule 125 mcg PO DAILY SUPPLEMENT 03/17/23 [History Last Taken 03/17/23] duloxetine 60 mg capsule,delayed release 60 mg PO DAILY DEPRESSION 03/17/23 [History Last Taken 03/17/23] metaxalone 400 mg tablet 400 mg PO BID MUSCLE SPASMS/PAIN 03/17/23 [History Last Taken 03/17/23] mirtazapine 7.5 mg tablet 3.75 - 7.5 mg PO QHS PRN DEPRESSON 03/17/23 [History Last Taken Unknown] nitroglycerin 0.4 mg sublingual tablet (Nitrostat) 0.4 mg sublingual Q5M PRN CHEST PAIN 03/17/23 [History Last Taken Unknown] nortriptyline 50 mg capsule 100 mg PO DAILY DEPRESSION 03/17/23 [History Last Taken 03/17/23] vitamin A 2,500 unit-vit C 100 mg-biotin 2,500 ozr-bnsy-pdgihq capsule (Aoab-Otpk-Vooy (vit A,U-ldrhgk-Qd-Cu)) 1 cap PO DAILY SUPPLEMENT 03/17/23 [History Last Taken 03/17/23] warfarin 4 mg tablet 4 mg PO DAILY BLOOD THINNER 03/17/23 [History Last Taken 03/17/23] Allergy/AdvReac Type Severity Reaction Status Date / Time celecoxib [From Celebrex] Allergy Severe Hives, Verified 02/22/23 13:00 swelling, difficulty breathing Sulfa (Sulfonamide Allergy Severe Hives, Verified 02/22/23 13:00 Antibiotics) swelling, difficulty breathing gemfibrozil AdvReac Intermediate Nausea,myal Verified 02/22/23 13:00 gias Family History Mother CVA (cerebral vascular accident) Breast cancer Hypertension CAD (coronary artery disease) Father Hypertension CAD (coronary artery disease) Surgical History (Updated 03/17/23 @ 14:26 by Dara Cantor) Fracture of ankle, bimalleolar, left, closed H/O chest tube placement (05/07/01) History of appendectomy History of bilateral breast reduction surgery (2008) History of left heart catheterization (12/07/15) History of loop recorder History of lumpectomy (2009) History of open reduction and internal fixation (ORIF) procedure (11/30/19) History of thumb surgery (2004) History of tilt table evaluation (05/21/16) History of total abdominal hysterectomy (1974) Hx of aortic valve replacement, mechanical (04/05/01) Hx of ascending aorta replacement (04/05/01) Social History housing: [facility] Smoking Status: Never smoker ROS Constitutional Constitutional: Denies chills, fatigue, fever(s) or malaise Eyes Eyes: Denies blurry vision ENT HEENT: Denies headache(s) or nasal discharge Cardiovascular Cardiovascular: Denies chest pain, dyspnea on exertion or syncope Respiratory/Chest Respiratory/Chest: Denies cough, shortness of breath at rest or shortness of breath with exertion Gastrointestinal Gastrointestinal: Reports hematochezia, melena, nausea and vomiting; Denies constipation or diarrhea Genitourinary Genitourinary: Denies dysuria Neurologic Neurologic: Denies focal weakness, numbness or tremor(s) Psychiatric Psychiatric: Denies anxiety or depression Physical Exam Narrative GENERAL: cooperative HEENT: Atraumatic; normocephalic EYES; Anicteric, Normal Conjunctiva NECK; supple, normal thyroid, RESPIRATORY: Diminished to auscultation CARDIOVASCULAR: Regular S1 S2, GI: soft, normoactive bowel sounds, : No Renal angle tenderness; EXTREMITIES: No edema, no clubbing, MUSCULOSKELETAL: no muscle wasting NEURO: Awake; no lateralizing signs. SKIN: No Rash PSYCH; Flat affect Lab / Micro Data 03/18/23 07:14 03/18/23 07:14 Labs: Laboratory Results - last 24 hr 03/17/23 19:28: Hgb 10.2 L, Hct 31.8 L 03/18/23 07:14: WBC 9.1, RBC 3.44 L, Hgb 9.9 L, Hct 31.9 L, MCV 92.7, MCH 28.8, MCHC 31.0 L, RDW Std Deviation 46.0 H, RDW Coeff of Pravin 13.5, Plt Count 172, MPV 9.0, Immature Gran % (Auto) 0.300, Neut % (Auto) 80.0 H, Lymph % (Auto) 8.2 L, [place] % (Auto) 8.9, Eos % (Auto) 2.4, Baso % (Auto) 0.2, Absolute Neuts (auto) 7.3, Absolute Lymphs (auto) 0.75 L, Nucleated RBC % 0, PT 34.8 H, INR 3.4, Sodium 142, Potassium 3.1 L, Chloride 108 H, Carbon Dioxide 27.0, Anion Gap 7, BUN 26 H, Creatinine 1.46 H, Estim Creat Clear Calc 26.54, Est GFR (MDRD) Af Amer 44 L, Est GFR (MDRD) Non-Af 37 L, BUN/Creatinine Ratio 17.8, Glucose 87, Calcium 8.5 Micro: Microbiology 03/17/23 14:25 Stool C. difficile GDH Antigen & Toxins - Final 03/17/23 14:25 Stool Clostridioides difficile (PCR) - Final Assessment & Plan Assessment/Plan (1) Acute lower GI bleeding: PLAN: Plan Acute lower GI bleed ? hemoglobin is 10.7 she has not had any more bleeding I suspect it is still from ischemic colitis and possibly diverticular. ? Her stool is positive for C. difficile toxin and negative antigen she does not need antibiotic therapy ? Continue clear liquid diet ? Her care is complicated by the need for anticoagulation secondary to her mechanical aortic valve, will not actively reverse her INR but will also hold her Coumadin Nausea vomiting -I will order gastric emptying study to see if there are any signs of gastroparesis. Charges/Coding Visit Charges Inpatient E&M: 40606 Init Hosp L3
[2023-03-18] MEDS: Atorvastatin Calcium 40 MG Tablet PO (22:39)
[2023-03-19 04:09] VITALS: BP 119/68; PULSE 80; RESP 18; TEMP 36.8; O2SAT 96
[2023-03-19] MEDS: Levothyroxine 100 MCG Tablet PO (04:10)
[2023-03-19 06:21] LABS: Absolute Lymphocyte Count 0.69 X10^3/uL (0.83-4.51); Absolute Neutrophil Count 5.1 X10^3/uL (2.0-7.7); Basophil# 0.02 X10^3/uL; Basophil% 0.3 % (0-1); Eosinophil# 0.36 X10^3/uL; Eosinophils% 5.3 % (0-5); Hematocrit 28.6 % (37-47); Hemoglobin 8.9 g/dL (12.0-15.0); Lymphocyte # 0.69 X10^3/ul (0.83-4.51); Lymphocyte % 10.2 % (19-41); Mean Corp Hgb Conc 31.1 g/dL (32-36); Mean Corpuscular Hgb 28.8 pg (27.0-32.0); Mean Corpuscular Volume 92.6 fL (81-99); Mean Platelet Vol. 9.7 fl (6.2-12.0); Monocyte# 0.63 X10^3/uL; Monocyte% 9.3 % (0-10); NRBC Flagged by Analyzer 0 % (0-5); Neutrophil # 5.06 X10^3/uL (2.7-7.7); Neutrophil % 74.6 % (47-70); Platelet Count 169 K/mm3 (150-450); RBC Distribution Width CV 13.5 % (11.6-14.6); RBC Distribution Width SD 45.6 fl (35.1-43.9); Red Blood Count 3.09 M/mm3 (4.2-5.4); White Blood Count 6.8 K/mm3 (4.4-11.0)
[2023-03-19 06:32] LABS: International Normalized Ratio 3.1; Prothrombin Time (Protime)PT. 32.3 SECONDS (11.7-14.9)
[2023-03-19 06:53] LABS: Anion Gap 4 (5-15); BUN 23 mg/dL (7-18); BUN/Creat Ratio 15.5 RATIO (10-20); Calcium,Total 7.8 mg/dL (8.5-10.1); Chloride 109 mmol/L (98-107); Creatinine, Serum 1.48 mg/dL (0.55-1.02); EST Glomerular Filtration Rate 36 mL/min (>60); Est Glom Filt Rate - Afr Amer 44 mL/min (>60); Estimated Creatinine Clearance 26.18 ml/min; Glucose 91 mg/dL (74-106); Magnesium 1.6 mg/dL (1.6-2.6); Potassium 3.2 mmol/L (3.5-5.1); Sodium Level 141 mmol/L (136-145)
--- NOTE | 2023-03-19 07:29 | PCM.PN.HOSP ---
Reason for Visit Reason for Visit: Diagnoses Gastrointestinal hemorrhage, unspecified (03/17/23) Subjective Subjective ; Patient seen, patient has had a drop in hemoglobin level. Per patient no more bleeding per rectum. Plan is to restart patient Coumadin Objective Data Objective Data Vital Signs: Vital Signs Temp Pulse Resp BP Pulse Ox O2 Del Method 98.2 F 80 18 119/68 96 Room Air 03/19/23 04:09 03/19/23 04:09 03/19/23 04:09 03/19/23 04:09 03/19/23 04:09 03/19/23 04:09 Oxygen Delivery Method Room Air Weight: 98.43 kg Body Mass Index (BMI) 37.2 Intake & Output: Intake and Output for Last 24 Hours 03/17/23 03/18/23 03/19/23 23:59 23:59 23:59 Intake Total 410 / 410 1570 / 1570 Balance 410 / 410 1570 / 1570 Lab / Micro Data 03/19/23 05:53 03/19/23 05:53 Labs: Laboratory Results - last 24 hr 03/18/23 07:14: PT 34.8 H, INR 3.4, Sodium 142, Potassium 3.1 L, Chloride 108 H, Carbon Dioxide 27.0, Anion Gap 7, BUN 26 H, Creatinine 1.46 H, Estim Creat Clear Calc 26.54, Est GFR (MDRD) Af Amer 44 L, Est GFR (MDRD) Non-Af 37 L, BUN/Creatinine Ratio 17.8, Glucose 87, Calcium 8.5 03/19/23 05:53: WBC 6.8, RBC 3.09 L, Hgb 8.9 L, Hct 28.6 L, MCV 92.6, MCH 28.8, MCHC 31.1 L, RDW Std Deviation 45.6 H, RDW Coeff of Pravin 13.5, Plt Count 169, MPV 9.7, Immature Gran % (Auto) 0.300, Neut % (Auto) 74.6 H, Lymph % (Auto) 10.2 L, Walker % (Auto) 9.3, Eos % (Auto) 5.3 H, Baso % (Auto) 0.3, Absolute Neuts (auto) 5.1, Absolute Lymphs (auto) 0.69 L, Nucleated RBC % 0, PT 32.3 H, INR 3.1, Sodium 141, Potassium 3.2 L, Chloride 109 H, Carbon Dioxide 28.0, Anion Gap 4 L, BUN 23 H, Creatinine 1.48 H, Estim Creat Clear Calc 26.18, Est GFR (MDRD) Af Amer 44 L, Est GFR (MDRD) Non-Af 36 L, BUN/Creatinine Ratio 15.5, Glucose 91, Calcium 7.8 L, Phosphorus 3.0, Magnesium 1.6 Micro: Microbiology 03/17/23 14:25 Stool C. difficile GDH Antigen & Toxins - Final 03/17/23 14:25 Stool Clostridioides difficile (PCR) - Final Physical Exam Narrative GENERAL: cooperative HEENT: Atraumatic; normocephalic EYES; Anicteric, Normal Conjunctiva NECK; supple, normal thyroid, RESPIRATORY: Diminished to auscultation CARDIOVASCULAR: Regular S1 S2, GI: soft, normoactive bowel sounds, : No Renal angle tenderness; EXTREMITIES: No edema, no clubbing, MUSCULOSKELETAL: no muscle wasting NEURO: Awake; no lateralizing signs. SKIN: No Rash PSYCH; Flat affect Assessment & Plan Assessment/Plan (1) Acute lower GI bleeding: PLAN: Plan Patient is an 78-year-old lady with recent admission for GI bleed. Patient ischemic colitis. EGD also demonstrated small nonbleeding duodenal ulcers presented with bleeding per rectum. Admitted to regular nursing floor with consult placed to GI 1. Acute lower GI bleed ? In a patient with known ischemic colitis. Admitted to regular nursing floor managed with IV fluids, H&H every 6 with consultation placed to GI 2. Diarrhea ? Possibly related to patient colitis patient was Seen enteric precautions while stool for C. difficile is being ruled out ? 03/19/2023 patient C. difficile antigen and toxin came back negative PCR was however positive. Patient does not require any antibiotics for now 3. Anemia - Secondary to chronic chronic blood loss anemia as well as acute blood loss anemia from GI bleed. monitoring H&H and transfuse if patient becomes symptomatic or hemoglobin falls below 7 ? 03/19/2023 hemoglobin has dropped from 10.7 on admission to 8.9 4. Valvular heart disease ? With history of mechanical aortic valve replacement, complicating care. Patient Coumadin was held on admission. Plan is to maintain INR between 2.5-3.5. 5. Seizure disorder ? Patient is on Keppra did continue 6. Hypertension - Blood pressure controlled, home medications continued with dose adjustment as needed 7. Dyslipidemia -Patient is on statin therapy, continued at home dose 8. Recent findings of small nonbleeding duodenal ulcers ? Patient is on PPI continue 9. Depression ? Patient is on nortriptyline as well as duloxetine 10. Paroxysmal A-fib ? Patient is on flecainide as well as systemic anticoagulation with Coumadin 11. History of venous thromboembolism ? Patient is on Coumadin with a therapeutic INR 12. 4. Hypothyroidism - Patient is on levothyroxine home dose continued 13. Hypokalemia -Corrected per protocol 14. DVT prophylaxis ? Patient is on Coumadin with a therapeutic INR Time spent in the patient's overall evaluation,decision-making process, review of diagnostic data, adjustment of management, discussion with other providers, nursing nursing and ancillary staff involved in patient's care documentation, 50 Minutes Charges/Coding Visit Charges Inpatient E&M: [address] [place] [id number]
[2023-03-19 07:37] VITALS: PULSE 70; O2SAT 94
--- NOTE | 2023-03-19 10:00 | NM_ITS ---
CLINICAL: 78-year-old female with history of clinical gastroparesis. SEMI-SOLID PHASE 99m Tc SULFUR COLLOID GASTRIC EMPTYING STUDY COMPARISON: CT of the abdomen-pelvis report 02/22/2023 FINDINGS: The patient was administered 1.2 mCi of 99m Tc sulfur colloid mixed with oatmeal and consumed per os. Image acquisitions in the anterior-posterior projections were obtained for 60 minutes. There is prompt visualization of the stomach. There is no gastroesophageal reflux identified. First order kinetics are maintained throughout the duration of the acquisitions. The T ? linear fit was extrapolated to be 61.85 minutes, (Normal: 12-56 minutes). NM/Gastric Emptying Study IMPRESSION: 1. ABNORMAL 99m Tc sulfur colloid semi-solid phase (oatmeal) gastric emptying imaging examination. A. There is mild delayed semi-solid phase gastric emptying compared to normal controls with maintained first order kinetics throughout all components of the examination. (Malgorzata et al, J Nucl Med Tech 38: 186, 2010). Electronically Signed: Umesh Rojas DO at 11:27 EST ,
[2023-03-19 11:24] VITALS: BP 131/56; PULSE 68; RESP 20; TEMP 36.9; O2SAT 97
[2023-03-19] MEDS: Allopurinol 100 MG Tablet PO (13:06)
[2023-03-19] MEDS: Memantine Hydrochloride 10 MG Tablet PO ×2 (13:06→21:32)
[2023-03-19 13:07] VITALS: PULSE 68
[2023-03-19] MEDS: Metoprolol(XL)Succ 25 MG Tablet 12.5 MG PO (13:07)
[2023-03-19] MEDS: Flecainide 100 MG Tablet 50 MG PO ×2 (13:07→21:31)
[2023-03-19] MEDS: levETIRAcetam 1,000 MG Tablet 1000 MG PO ×2 (13:09→21:32)
[2023-03-19] MEDS: Potassium Chloride Oral Tablet 20 MEQ PO ×2 (13:09→16:56)
[2023-03-19] MEDS: DULoxetine Hcl 60 MG Capsule PO (13:09)
[2023-03-19] MEDS: Metaxalone 800 MG Tablet 400 MG PO ×2 (13:21→21:31)
[2023-03-19] MEDS: Cholecalciferol (Vit D3) 125 MCG CAPSULE (5,000 UNITS) PO (13:21)
[2023-03-19] MEDS: HYDROcodone Bitartrate/Apap 5/325 Tablet PO ×2 (13:22→21:31)
[2023-03-19] MEDS: Pantoprazole Sodium 40 MG Tablet PO (13:24)
[2023-03-19] MEDS: OXcarbazepine 150 MG Tablet PO ×2 (13:27→21:31)
--- NOTE | 2023-03-19 16:10 | PN.GI_ITS ---
Subjective Subjective Patient underwent gastric emptying study today. She states that she is hungry. She has not had any nausea or vomiting today. Her gastric emptying study does show prolonged gastric emptying which is consistent with her symptoms of nausea vomiting with each meal the reason for her gastroparesis and her is unknown at this time. Objective Data Objective Data Vital Signs: Vital Signs Temp Pulse Resp BP Pulse Ox O2 Del Method 98.4 F 68 20 H 131/56 H 97 Room Air 03/19/23 11:24 03/19/23 13:07 03/19/23 11:24 03/19/23 11:24 03/19/23 11:24 03/19/23 11:24 Oxygen Delivery Method Room Air Weight: 217 lb Body Mass Index (BMI) 37.2 Intake & Output: Intake and Output for Last 24 Hours 03/17/23 03/18/23 03/19/23 23:59 23:59 23:59 Intake Total 410 / 410 1570 / 1570 Balance 410 / 410 1570 / 1570 Lab / Micro Data 03/19/23 05:53 03/19/23 05:53 Labs: Laboratory Results - last 24 hr 03/19/23 05:53: WBC 6.8, RBC 3.09 L, Hgb 8.9 L, Hct 28.6 L, MCV 92.6, MCH 28.8, MCHC 31.1 L, RDW Std Deviation 45.6 H, RDW Coeff of Pravin 13.5, Plt Count 169, MPV 9.7, Immature Gran % (Auto) 0.300, Neut % (Auto) 74.6 H, Lymph % (Auto) 10.2 L, [place] % (Auto) 9.3, Eos % (Auto) 5.3 H, Baso % (Auto) 0.3, Absolute Neuts (auto) 5.1, Absolute Lymphs (auto) 0.69 L, Nucleated RBC % 0, PT 32.3 H, INR 3.1, Sodium 141, Potassium 3.2 L, Chloride 109 H, Carbon Dioxide 28.0, Anion Gap 4 L, BUN 23 H, Creatinine 1.48 H, Estim Creat Clear Calc 26.18, Est GFR (MDRD) Af Amer 44 L, Est GFR (MDRD) Non-Af 36 L, BUN/Creatinine Ratio 15.5, Glucose 91, Calcium 7.8 L, Phosphorus 3.0, Magnesium 1.6 Micro: Microbiology 03/17/23 14:25 Stool C. difficile GDH Antigen & Toxins - Final 03/17/23 14:25 Stool Clostridioides difficile (PCR) - Final Radiography Diagnostic Testing: Radiology Impression Gastric Emptying Nuclear Medicine 03/19/23 10:00 IMPRESSION: 1. ABNORMAL 99m Tc sulfur colloid semi-solid phase (oatmeal) gastric emptying imaging examination. A. There is mild delayed semi-solid phase gastric emptying compared to normal controls with maintained first order kinetics throughout all components of the examination. (Malgorzata et al, J Nucl Med Tech 38: 186, 2010). Electronically Signed: Umesh Rojas DO at 11:27 EST , Physical Exam Narrative GENERAL: cooperative HEENT: Atraumatic; normocephalic EYES; Anicteric, Normal Conjunctiva NECK; supple, normal thyroid, RESPIRATORY: Diminished to auscultation CARDIOVASCULAR: Regular S1 S2, GI: soft, normoactive bowel sounds, : No Renal angle tenderness; EXTREMITIES: No edema, no clubbing, MUSCULOSKELETAL: no muscle wasting NEURO: Awake; no lateralizing signs. SKIN: No Rash PSYCH; Flat affect Assessment & Plan Assessment/Plan (1) Acute lower GI bleeding: PLAN: Plan Acute lower GI bleed ? hemoglobin is 10.7 she has not had any more bleeding I suspect it is still from ischemic colitis and possibly diverticular. ? Her stool is positive for C. difficile toxin and negative antigen she does not need antibiotic therapy ? Continue clear liquid diet ? Her care is complicated by the need for anticoagulation secondary to her me chanical aortic valve, will not actively reverse her INR but will also hold her Coumadin Nausea vomiting -Consistent with gastroparesis. I wanted to start on Reglan therapy with mirtazapine but is a interaction with one of her medicines. Therefore we will start her on Compazine therapy scheduled
[2023-03-19 16:51] VITALS: PULSE 80
[2023-03-19] MEDS: 0.9% Saline Lock 10 ML Syringe IV (17:49)
[2023-03-19] MEDS: proCHLORPERazine 10 MG/2 ML Vial IV (17:49)
[2023-03-19 19:47] VITALS: BP 103/51; PULSE 72; RESP 18; TEMP 36.4; O2SAT 94
[2023-03-19] MEDS: Nortriptyline 25 MG Capsule 100 MG PO (21:32)
[2023-03-19] MEDS: Atorvastatin Calcium 40 MG Tablet PO (21:32)
[2023-03-20] MEDS: 0.9% Saline Lock 10 ML Syringe IV ×2 (00:07→06:17)
[2023-03-20] MEDS: proCHLORPERazine 10 MG/2 ML Vial IV ×3 (00:07→12:04)
[2023-03-20 03:13] VITALS: BP 114/63; PULSE 60; RESP 18; TEMP 36.6; O2SAT 93
[2023-03-20] MEDS: Levothyroxine 100 MCG Tablet PO (06:17)
[2023-03-20 06:52] LABS: Absolute Lymphocyte Count 0.89 X10^3/uL (0.83-4.51); Absolute Neutrophil Count 3.1 X10^3/uL (2.0-7.7); Basophil# 0.02 X10^3/uL; Basophil% 0.4 % (0-1); Eosinophil# 0.46 X10^3/uL; Eosinophils% 9.3 % (0-5); Hematocrit 30.5 % (37-47); Hemoglobin 9.8 g/dL (12.0-15.0); Lymphocyte # 0.89 X10^3/ul (0.83-4.51); Mean Corp Hgb Conc 32.1 g/dL (32-36); Mean Corpuscular Hgb 30.1 pg (27.0-32.0); Mean Corpuscular Volume 93.6 fL (81-99); Mean Platelet Vol. 9.7 fl (6.2-12.0); Monocyte# 0.46 X10^3/uL; Monocyte% 9.3 % (0-10); NRBC Flagged by Analyzer 0 % (0-5); Neutrophil # 3.11 X10^3/uL (2.7-7.7); Neutrophil % 62.8 % (47-70); Platelet Count 187 K/mm3 (150-450); RBC Distribution Width CV 13.3 % (11.6-14.6); RBC Distribution Width SD 45.7 fl (35.1-43.9); Red Blood Count 3.26 M/mm3 (4.2-5.4)
[2023-03-20 07:02] LABS: International Normalized Ratio 2.6
[2023-03-20 07:18] LABS: Anion Gap 3 (5-15); BUN 26 mg/dL (7-18); BUN/Creat Ratio 17.9 RATIO (10-20); Calcium,Total 8.4 mg/dL (8.5-10.1); Chloride 111 mmol/L (98-107); Creatinine, Serum 1.45 mg/dL (0.55-1.02); EST Glomerular Filtration Rate 37 mL/min (>60); Est Glom Filt Rate - Afr Amer 45 mL/min (>60); Estimated Creatinine Clearance 26.72 ml/min; Glucose 85 mg/dL (74-106); Potassium 3.7 mmol/L (3.5-5.1); Sodium Level 141 mmol/L (136-145)
--- NOTE | 2023-03-20 07:39 | PN.HOSP_ITS ---
Reason for Visit Reason for Visit: Diagnoses Gastrointestinal hemorrhage, unspecified (03/17/23) Subjective Subjective Patient seen, diarrhea appears to have resolved hemoglobin remained stable patient will be assessed for discharge Objective Data Objective Data Vital Signs: Vital Signs Temp Pulse Resp BP Pulse Ox O2 Del Method 97.8 F 60 18 114/63 93 Room Air 03/20/23 03:13 03/20/23 03:13 03/20/23 03:13 03/20/23 03:13 03/20/23 03:13 03/20/23 03:13 Oxygen Delivery Method Room Air Weight: 98.43 kg Body Mass Index (BMI) 37.2 Intake & Output: Intake and Output for Last 24 Hours 03/18/23 03/19/23 03/20/23 23:59 23:59 23:59 Intake Total 1570 / 1570 700 / 700 Output Total 900 / 900 Balance 1570 / 1570 -200 / -200 Lab / Micro Data 03/20/23 06:24 03/20/23 06:24 Labs: Laboratory Results - last 24 hr 03/20/23 06:24: WBC 5.0, RBC 3.26 L, Hgb 9.8 L, Hct 30.5 L, MCV 93.6, MCH 30.1, MCHC 32.1, RDW Std Deviation 45.7 H, RDW Coeff of Pravin 13.3, Plt Count 187, MPV 9.7, Immature Gran % (Auto) 0.200, Neut % (Auto) 62.8, Lymph % (Auto) 18.0 L, [place] % (Auto) 9.3, Eos % (Auto) 9.3 H, Baso % (Auto) 0.4, Absolute Neuts (auto) 3.1, Absolute Lymphs (auto) 0.89, Nucleated RBC % 0, PT 28.0 H, INR 2.6, Sodium 141, Potassium 3.7, Chloride 111 H, Carbon Dioxide 27.0, Anion Gap 3 L, BUN 26 H , Creatinine 1.45 H, Estim Creat Clear Calc 26.72, Est GFR (MDRD) Af Amer 45 L, Est GFR (MDRD) Non-Af 37 L, BUN/Creatinine Ratio 17.9, Glucose 85, Calcium 8.4 L Micro: Microbiology 03/17/23 14:25 Stool C. difficile GDH Antigen & Toxins - Final 03/17/23 14:25 Stool Clostridioides difficile (PCR) - Final Radiography Diagnostic Testing: Radiology Impression Gastric Emptying Nuclear Medicine 03/19/23 10:00 IMPRESSION: 1. ABNORMAL 99m Tc sulfur colloid semi-solid phase (oatmeal) gastric emptying imaging examination. A. There is mild delayed semi-solid phase gastric emptying compared to normal controls with maintained first order kinetics throughout all components of the examination. (Malgorzata et al, J Nucl Med Tech 38: 186, 2010). Electronically Signed: Umesh Rojas DO at 11:27 EST , Physical Exam Narrative GENERAL: cooperative HEENT: Atraumatic; normocephalic EYES; Anicteric, Normal Conjunctiva NECK; supple, normal thyroid, RESPIRATORY: Diminished to auscultation CARDIOVASCULAR: Regular S1 S2, GI: soft, normoactive bowel sounds, : No Renal angle tenderness; EXTREMITIES: No edema, no clubbing, MUSCULOSKELETAL: no muscle wasting NEURO: Awake; no lateralizing signs. SKIN: No Rash PSYCH; Flat affect Assessment & Plan Assessment/Plan (1) Acute lower GI bleeding: PLAN: Plan Patient is an 78-year-old lady with recent admission for GI bleed. Patient ischemic colitis. EGD also demonstrated small nonbleeding duodenal ulcers presented with bleeding per rectum. Admitted to regular nursing floor with consult placed to GI 1. Acute lower GI bleed ? In a patient with known ischemic colitis. Admitted to regular nursing floor managed with IV fluids, H&H every 6 with consultation placed to GI 2. Diarrhea ? Possibly related to patient colitis patient was Seen enteric precautions while stool for C. difficile is being ruled out ? 03/19/2023 patient C. difficile antigen and toxin came back negative PCR was however positive. Patient does not require any antibiotics for now 3. Anemia - Secondary to chronic chronic blood loss anemia as well as acute blood loss a nemia from GI bleed. monitoring H&H and transfuse if patient becomes symptomatic or hemoglobin falls below 7 ? 03/19/2023 hemoglobin has dropped from 10.7 on admission to 8.9 4. Valvular heart disease ? With history of mechanical aortic valve replacement, complicating care. Patient Coumadin was held on admission. Plan is to maintain INR between 2.5- 3.5. 5. Seizure disorder ? Patient is on Keppra did continue 6. Hypertension - Blood pressure controlled, home medications continued with dose adjustment as needed 7. Dyslipidemia -Patient is on statin therapy, continued at home dose 8. Recent findings of small nonbleeding duodenal ulcers ? Patient is on PPI continue 9. Depression ? Patient is on nortriptyline as well as duloxetine 10. Paroxysmal A-fib ? Patient is on flecainide as well as systemic anticoagulation with Coumadin 11. History of venous thromboembolism ? Patient is on Coumadin with a therapeutic INR 12. 4. Hypothyroidism - Patient is on levothyroxine home dose continued 13. Hypokalemia -Corrected per protocol 14. DVT prophylaxis ? Patient is on Coumadin with a therapeutic INR Time spent in the patient's overall evaluation,decision-making process, review of diagnostic data, adjustment of management, discussion with other providers, nursing nursing and ancillary staff involved in patient's care documentation, 35 minutes Charges/Coding Visit Charges Inpatient E&M: 14312 Subs Hosp L2
--- NOTE | 2023-03-20 08:00 | EX.PCM.PN.GI ---
Subjective Subjective Patient feels a lot better and is able to eat with administration of Reglan therapy. She denies any nausea, vomiting, diarrhea or lower GI bleeding. Objective Data Objective Data Vital Signs: Vital Signs Temp Pulse Resp BP Pulse Ox O2 Del Method 97.3 F L 77 18 115/73 96 Room Air 03/20/23 09:15 03/20/23 09:30 03/20/23 09:15 03/20/23 09:15 03/20/23 09:15 03/20/23 10:00 Oxygen Delivery Method Room Air Weight: 217 lb Body Mass Index (BMI) 37.2 Intake & Output: Intake and Output for Last 24 Hours 03/18/23 03/19/23 03/20/23 23:59 23:59 23:59 Intake Total 1570 / 1570 700 / 700 Output Total 900 / 900 Balance 1570 / 1570 -200 / -200 Lab / Micro Data 03/20/23 06:24 03/20/23 06:24 Labs: Laboratory Results - last 24 hr 03/20/23 06:24: WBC 5.0, RBC 3.26 L, Hgb 9.8 L, Hct 30.5 L, MCV 93.6, MCH 30.1, MCHC 32.1, RDW Std Deviation 45.7 H, RDW Coeff of Pravin 13.3, Plt Count 187, MPV 9.7, Immature Gran % (Auto) 0.200, Neut % (Auto) 62.8, Lymph % (Auto) 18.0 L, [place] % (Auto) 9.3, Eos % (Auto) 9.3 H, Baso % (Auto) 0.4, Absolute Neuts (auto) 3.1, Absolute Lymphs (auto) 0.89, Nucleated RBC % 0, PT 28.0 H, INR 2.6, Sodium 141, Potassium 3.7, Chloride 111 H, Carbon Dioxide 27.0, Anion Gap 3 L, BUN 26 H, Creatinine 1.45 H, Estim Creat Clear Calc 26.72, Est GFR (MDRD) Af Amer 45 L, Est GFR (MDRD) Non-Af 37 L, BUN/Creatinine Ratio 17.9, Glucose 85, Calcium 8.4 L Micro: Microbiology 03/17/23 14:25 Stool C. difficile GDH Antigen & Toxins - Final 03/17/23 14:25 Stool Clostridioides difficile (PCR) - Final Physical Exam Narrative GENERAL: cooperative HEENT: Atraumatic; normocephalic EYES; Anicteric, Normal Conjunctiva NECK; supple, normal thyroid, RESPIRATORY: Diminished to auscultation CARDIOVASCULAR: Regular S1 S2, GI: soft, normoactive bowel sounds, : No Renal angle tenderness; EXTREMITIES: No edema, no clubbing, MUSCULOSKELETAL: no muscle wasting NEURO: Awake; no lateralizing signs. SKIN: No Rash PSYCH; Flat affect Assessment & Plan Assessment/Plan (1) Acute lower GI bleeding: PLAN: Plan Acute lower GI bleed ? hemoglobin is 10.7 she has not had any more bleeding I suspect it is still from ischemic colitis and possibly diverticular. ? Her stool is positive for C. difficile toxin and negative antigen she does not need antibiotic therapy ? Continue clear liquid diet ? Her care is complicated by the need for anticoagulation secondary to her mechanical aortic valve, will not actively reverse her INR but will also hold her Coumadin Nausea vomiting -Consistent with gastroparesis. I wanted to start on Reglan therapy with mirtazapine but is a interaction with one of her medicines. Therefore we will start her on Compazine therapy scheduled 03/20/23-continue current medication regimen. It is okay for her to be on anticoagulation. She will need follow-up in the near future so we can make sure her gastroparesis resolves. Charges/Coding Visit Charges Inpatient E&M: 10709 Subs Hosp L3
[2023-03-20 09:15] VITALS: BP 115/73; PULSE 77; RESP 18; TEMP 36.3; O2SAT 96
[2023-03-20] MEDS: Potassium Chloride Oral Tablet 20 MEQ PO (09:25)
[2023-03-20] MEDS: Pantoprazole Sodium 40 MG Tablet PO (09:26)
[2023-03-20] MEDS: Allopurinol 100 MG Tablet PO (09:26)
[2023-03-20] MEDS: levETIRAcetam 1,000 MG Tablet 1000 MG PO (09:26)
[2023-03-20] MEDS: Memantine Hydrochloride 10 MG Tablet PO (09:26)
[2023-03-20] MEDS: Flecainide 100 MG Tablet 50 MG PO (09:26)
[2023-03-20] MEDS: Cholecalciferol (Vit D3) 125 MCG CAPSULE (5,000 UNITS) PO (09:26)
[2023-03-20] MEDS: HYDROcodone Bitartrate/Apap 5/325 Tablet PO (09:27)
[2023-03-20] MEDS: Metaxalone 800 MG Tablet 400 MG PO (09:27)
[2023-03-20] MEDS: DULoxetine Hcl 60 MG Capsule PO (09:27)
[2023-03-20] MEDS: OXcarbazepine 150 MG Tablet PO (09:27)
[2023-03-20 09:30] VITALS: PULSE 77
[2023-03-20] MEDS: Metoprolol(XL)Succ 25 MG Tablet 12.5 MG PO (09:30)
--- NOTE | 2023-03-20 09:44 | DS.PCM_ITS ---
Providers Date of Admission: 03/17/23 Date of Discharge: 03/20/23 Primary Care Physician: Dr. Kishore Ricci MD Consultations 03/17/23 14:15 Consult: Gastroenterology Routine Consulting Provider: [facility] Reason for Consult: GI bleed EMERGENT Consult: No MD Notified: Yes Date Notified: 03/17/23 Time Notified: 12:59 Method of Notification: ED Physician Initiated Reason For Visit: POSSIBLE GI BLEED Diagnosis Discharge Diagnosis (1) Acute lower GI bleeding: Status: Acute Code(s): K92.2 - Gastrointestinal hemorrhage, unspecified Plan Patient is an 78-year-old lady with recent admission for GI bleed. Patient ischemic colitis. EGD also demonstrated small nonbleeding duodenal ulcers presented with bleeding per rectum. Admitted to regular nursing floor with consult placed to GI 1. Acute lower GI bleed ? In a patient with known ischemic colitis. Admitted to regular nursing floor managed with IV fluids, H&H every 6 with consultation placed to GI 2. Diarrhea ? Possibly related to patient colitis patient was Seen enteric precautions while stool for C. difficile is being ruled out ? 03/19/2023 patient C. difficile antigen and toxin came back negative PCR was however positive. Patient does not require any antibiotics for now 3. Anemia - Secondary to chronic chronic blood loss anemia as well as acute blood loss anemia from GI bleed. monitoring H&H and transfuse if patient becomes symptomatic or hemoglobin falls below 7 ? 03/19/2023 hemoglobin has dropped from 10.7 on admission to 8.9 4. Valvular heart disease ? With history of mechanical aortic valve replacement, complicating care. Patient Coumadin was held on admission. Plan is to maintain INR between 2.5- 3.5. 5. Seizure disorder ? Patient is on Keppra did continue 6. Hypertension - Blood pressure controlled, home medications continued with dose adjustment as needed 7. Dyslipidemia -Patient is on statin therapy, continued at home dose 8. Recent findings of small nonbleeding duodenal ulcers ? Patient is on PPI continue 9. Depression ? Patient is on nortriptyline as well as duloxetine 10. Paroxysmal A-fib ? Patient is on flecainide as well as systemic anticoagulation with Coumadin 11. History of venous thromboembolism ? Patient is on Coumadin with a therapeutic INR 12. 4. Hypothyroidism - Patient is on levothyroxine home dose continued 13. Hypokalemia -Corrected per protocol 14. DVT prophylaxis ? Patient is on Coumadin with a therapeutic INR Time spent in the patient's overall evaluation,decision-making process, review o f diagnostic data, adjustment of management, discussion with other providers, nursing nursing and ancillary staff involved in patient's care documentation, 35 minutes Medications at Discharge Home Medications allopurinol 100 mg tablet 100 mg PO DAILY GOUT #90 tabs 02/22/19 levothyroxine 100 mcg tablet 100 mcg PO DAILY THYROID #90 tabs 02/22/19 omeprazole 40 mg capsule,delayed release 40 mg PO DAILY GERD #90 caps 02/22/19 levetiracetam 1,000 mg tablet (Keppra) 1,000 mg PO BID EPILEPSY 06/06/21 rosuvastatin 20 mg tablet (Crestor) 20 mg PO DAILY CHOLESTEROL 06/06/21 hydrocodone-acetaminophen 5-325mg 5mg-325mg 1 tab PO BID PAIN 09/12/21 oxcarbazepine 150 mg tablet 150 mg PO BID EPILESPSY 09/12/21 amlodipine 10 mg tablet 10 mg PO DAILY BLOOD PRESSURE 11/25/21 metoprolol succinate 25 mg tablet,extended release 24 hr 12.5 mg PO DAILY HEART #90 tabs 11/25/21 flecainide 100 mg tablet 50 mg PO BID HEART 12/09/21 memantine 10 mg tablet 10 mg PO BID MEMORY 02/22/23 vibegron 75 mg tablet (Gemtesa) 75 mg PO DAILY OVERACTIVE BLADDER 02/22/23 cholecalciferol (vitamin D3) 125 mcg (5,000 unit) capsule 125 mcg PO DAILY SUPPLEMENT 03/17/23 duloxetine 60 mg capsule,delayed release 60 mg PO DAILY DEPRESSION 03/17/23 metaxalone 400 mg tablet 400 mg PO BID MUSCLE SPASMS/PAIN 03/17/23 mirtazapine 7.5 mg tablet 3.75 - 7.5 mg PO QHS PRN DEPRESSON 03/17/23 nitroglycerin 0.4 mg sublingual tablet (Nitrostat) 0.4 mg sublingual Q5M PRN CHEST PAIN 03/17/23 nortriptyline 50 mg capsule 100 mg PO DAILY DEPRESSION 03/17/23 vitamin A 2,500 unit-vit C 100 mg-biotin 2,500 ujk-[id number]-cvhpwf capsule (Ujrp-Tchy-Wgbc (vit A,P-dbiyjv-Mf-Cu)) 1 cap PO DAILY SUPPLEMENT 03/17/23 warfarin 4 mg tablet 4 mg PO DAILY BLOOD THINNER 03/17/23 potassium chloride 20 mEq tablet,extended release(part/cryst) 20 meq PO BIDCM 10 days #20 tabs 03/20/23 Hospital Course Summary of Care Provided Minutes Spent on Discharge: 35 Physical Exam Narrative GENERAL: cooperative HEENT: Atraumatic; normocephalic EYES; Anicteric, Normal Conjunctiva NECK; supple, normal thyroid, RESPIRATORY: Diminished to auscultation CARDIOVASCULAR: Regular S1 S2, GI: soft, normoactive bowel sounds, : No Renal angle tenderness; EXTREMITIES: No edema, no clubbing, MUSCULOSKELETAL: no muscle wasting NEURO: Awake; no lateralizing signs. SKIN: No Rash PSYCH; Flat affect Weight / BMI Weight Weight: 98.43 kg Body Mass Index (BMI) 37.2 ABG / Lab / Microbiology Data 03/20/23 06:24 03/20/23 06:24 Laboratory: Laboratory Results - last 24 hr 03/20/23 06:24: WBC 5.0, RBC 3.26 L, Hgb 9.8 L, Hct 30.5 L, MCV 93.6, MCH 30.1, MCHC 32.1, RDW Std Deviation 45.7 H, RDW Coeff of Pravin 13.3, Plt Count 187, MPV 9.7, Immature Gran % (Auto) 0.200, Neut % (Auto) 62.8, Lymph % (Auto) 18.0 L, [place] % (Auto) 9.3, Eos % (Auto) 9.3 H, Baso % (Auto) 0.4, Absolute Neuts (auto) 3.1, Absolute Lymphs (auto) 0.89, Nucleated RBC % 0, PT 28.0 H, INR 2.6, Sodium 141, Potassium 3.7, Chloride 111 H, Carbon Dioxide 27.0, Anion Gap 3 L, BUN 26 H , Creatinine 1.45 H, Estim Creat Clear Calc 26.72, Est GFR (MDRD) Af Amer 45 L, Est GFR (MDRD) Non-Af 37 L, BUN/Creatinine Ratio 17.9, Glucose 85, Calcium 8.4 L Microbiology: Microbiology 03/17/23 14:25 Stool C. difficile GDH Antigen & Toxins - Final 03/17/23 14:25 Stool Clostridioides difficile (PCR) - Final Radiography Diagnostic Testing: Radiology Impression Gastric Emptying Nuclear Medicine 03/19/23 10:00 IMPRESSION: 1. ABNORMAL 99m Tc sulfur colloid semi-solid phase (oatmeal) gastric emptying imaging examination. A. There is mild delayed semi-solid phase gastric emptying compared to normal controls with maintained first order kinetics throughout all components of the examination. (Malgorzata et al, J Nucl Med Tech 38: 186, 2010). Electronically Signed: Umesh Rojas DO at 11:27 EST , D/C Instructions Discharge Diet: No restrictions Discharge Activity: Return to Normal Activity Call your doctor if you observe: Fever of 101 or Higher, Shortness of breath, Fainting spells and Chest pain Meaningful Use Info Meaningful Use Diagnoses (Choose all that apply): None applicable Discharge Plan Admission Admit Date/Time: 03/17/23 12:53 Attending Provider: Stefan Acevedo Primary Care Provider: Kishore Ricci Consulting Providers: Raheem Vazquez Discharge Orders/Prescriptions Prescriptions: New potassium chloride 20 mEq Tablet,Er Particles/Crystals 20 meq PO BIDCM 10 Days Qty: 20 0RF Continued omeprazole 40 mg capsule,delayed release(DR/EC) 40 mg PO DAILY Qty: 90 allopurinol 100 mg tablet 100 mg PO DAILY Qty: 90 levothyroxine 100 mcg tablet 100 mcg PO DAILY Qty: 90 levetiracetam [Keppra] 1,000 mg tablet 1,000 mg PO BID rosuvastatin [Crestor] 20 mg tablet 20 mg PO DAILY amlodipine 10 mg tablet 10 mg PO DAILY oxcarbazepine 150 mg tablet 150 mg PO BID hydrocodone-acetaminophen 5-325 mg tablet 1 tab PO BID Patient Comments: PT STATES TAKES NEEDED (03-18-23) metoprolol succinate 25 mg tablet extended release 24 hr 12.5 mg PO DAILY Qty: 90 Gemtesa 75 mg tablet 75 mg PO DAILY memantine 10 mg tablet 10 mg PO BID nortriptyline 50 mg capsule 100 mg PO DAILY mirtazapine 7.5 mg tablet 3.75 - 7.5 mg PO QHS PRN (Reason: DEPRESSON ) Patient Comments: PT STATES WILL BE TAKING AFTER SLEEP STUDY WHICH IS 03/31/23 metaxalone 400 mg tablet 400 mg PO BID duloxetine 60 mg capsule,delayed release(DR/EC) 60 mg PO DAILY cholecalciferol (vitamin D3) 125 mcg (5,000 unit) capsule 125 mcg PO DAILY warfarin 4 mg tablet 4 mg PO DAILY Protocol: Dose Management Condition: Wednesday Dose/Route: 4 mg Instruction: 1 x 4 mg tablet Condition: Wednesday Dose/Route: 4 mg Instruction: 1 x 4 mg tablet Condition: Wednesday Dose/Route: 4 mg Instruction: 1 x 4 mg tablet Condition: Wednesday Dose/Route: 4 mg Instruction: 1 x 4 mg tablet Condition: Dose/Route: 4 mg Instruction: 1 x 4 mg tablet Condition: Wednesday Dose/Route: 6 mg Instruction: 1.5 x 4 mg tablets Condition: Wednesday Dose/Route: 4 mg Instruction: 1 x 4 mg tablet Protocol Text: Adjustment Start Date: Wednesday03/17/23 INR Value: 3.2 INR Date: 03/17/23 Recheck Date: 03/31/23 nitroglycerin [Nitrostat] 0.4 mg tablet, sublingual 0.4 mg sublingual Q5M PRN (Reason: CHEST PAIN ) Rx Instructions: do not exceed 3 doses per episode Utmh-Fkmn-Itqf(vit A,C-biotin) 2,500 unit-100 mg-2,500 mcg capsule 1 cap PO DAILY flecainide 100 mg tablet 50 mg PO BID Referrals / Follow Up: Kishore Ricci MD [Primary Care Provider] - Within 2 Weeks Disposition Disposition (needs filled in before D/C Order can be placed): Home Health Service Charges/Coding Visit Charges Inpatient E&M: 78508 Disch Hosp >30min
[2023-03-20 12:00] VITALS: BP 115/74; PULSE 74; RESP 18; TEMP 37.1; O2SAT 98
== END 2023-03-20 12:03 | disposition home health service (06) ==
LOC: ED 12:56 → MS3 13:06
PROVIDERS: Admitting Provider Family Medicine; Emergency Provider Emergency Medicine; PCP Family Medicine; Visit Provider Internal Medicine
DX: K92.2 Gastrointestinal hemorrhage, unspecified (principal); N18.4 Chronic kidney disease, stage 4 (severe); K55.9 Vascular disorder of intestine, unspecified; I48.0 Paroxysmal atrial fibrillation; G40.909 Epilepsy, unspecified, not intractable, without status epilepticus; I12.9 Hypertensive chronic kidney disease with stage 1 through stage 4 chronic kidney disease, or unspecified chronic kidney disease; Z79.01 Long term (current) use of 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s; R19.7 Diarrhea, unspecified; M10.9 Gout, unspecified; D62 Acute posthemorrhagic anemia; K21.9 Gastro-esophageal reflux disease without esophagitis; G89.29 Other chronic pain; E03.9 Hypothyroidism, unspecified; Z79.899 Other long term (current) drug therapy; Z79.890 Hormone replacement therapy; F32.A Depression, unspecified; Z95.2 Presence of prosthetic heart valve; F41.9 Anxiety disorder, unspecified; E87.6 Hypokalemia
CPT/HCPCS: 36415; 78264; 80048; 80053; 81001; 83605; 83735; 84100; 85014; 85018; 85025; 85610; 87493; 96365; 96366; 96375; 96376; 97162; 97166; 97535; 99221; 99284; A9541; A4216; G0378

== ENCOUNTER → 2023-03-17 | Outpatient (CLI) | payer OTHER, SELFPAY ==
[2023-03-17 11:05] LABS: International Normalized Ratio 3.3; Prothrombin Time (Protime)PT. 33.8 SECONDS (11.7-14.9)
--- OUTSIDE RECORDS SUMMARY | 2023-03-17 11:33 | XMS RPT_ITS | CCD ---
Author Name Unknown Address [address] [place] [address] Organization [facility] Care Team Providers Care Planer Hand Name Role Phone Kishore Ricci MD Primary Care Provider JAILYN MO MD Primary Care Physician ANTONIO SHAH Attending Unavailable JAILYN MO MD Primary Care Unavailable ANTONIO SHAH Referring Unavailable Kishore Ricci MD Primary Care Provider [phone] Allergies Allergy Classification Reported Allergen(s) Allergy Type Date of Onset Reaction(s) Facility (2 sources) celecoxib Drug Allergy 5 [address] [facility] Work Phone: (2 sources) Gemfibrozil Drug Allergy 7 GI Upset, Myalgia [facility] (2 sources) Sulfonamides (Antibiotic) Drug Allergy [address] [facility] (1 source) Sulfamethoxazole; 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: [sulfamethoxazole ] Drug Allergy [facility] Medications Current Medications Medication Drug Class(es) Dates Sig (Normalized) Sig (Original) acetaminophen 325 mg / HYDROcodone bitartrate 5 mg oral tablet (1 source) Opioid Agonist Start: 06-15-2014 take 1 tablet by mouth every six hours [place] 325- 5 mg oral tablet Dose = 1 tab(s), Oral, q6h, # 12 tab(s), 0 Refill(s) Start Date: 06/15/14 Status: Ordered atorvastatin 80 mg oral tablet (1 source) HMG-CoA Reductase Inhibitor Start: 06-15-2014 Lipitor 80 mg oral tablet Dose : 80 mg = 1 tab(s), Oral, qDay, # 30 tab(s) Start Date: 06/15/14 Status: Ordered DULoxetine 60 mg delayed release oral capsule (3 sources) Serotonin and Norepinephrine Reuptake Inhibitor Start: 06-15-2014 Cymbalta 60 mg oral delayed release capsule Dose : 60 mg = 1 cap(s), Oral, Daily Start Date: 06/15/14 Status: Ordered Completed/Discontinued Medications Medication Drug Class(es) Dates Sig (Normalized) Sig (Original) Acetaminophen (2 sources) ACETAMINOPHEN (T YLENOL ORAL) Take 1-2 tablets by mouth as needed. 0 Active Problems Active Problems Problem Classification Problem Date Documented Date Episodic/Chronic Cardiac dysrhythmias (2 sources) Premature atrial contraction; 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: [Atrial premature depolarization] 05-27-2018 Chronic Cardiac dysrhythmias (2 sources) Palpitations; 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: [Palpitations] 05-27-2018 Episodic Chronic kidney disease (2 sources) Chronic kidney disease stage 4; 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: [Chronic kidney disease, stage 4 (severe)] Onset: 8 05-25-2017 Chronic Disorders of lipid metabolism (3 sources) Hyperlipidemia; 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: [Hyperlipidemia, unspecified] Onset: 5 11-15-2014 Chronic Essential hypertension (2 sources) Essential hypertension; 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: [Essential (primary) hypertension] Onset: 5 11-15-2014 Chronic Headache; including migraine (2 sources) Migraine; 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: [Migraine, unspecified, not intractable, without status migrainosus] Onset: 8 05-06-2017 Chronic Heart valve disorders (6 sources) Aortic valve disorder; 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: [Nonrheumatic aortic valve disorder, unspecified] Onset: 6 05-06-2017 Chronic Osteoarthritis (1 source) Localized, primary osteoarthritis of the shoulder region; 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: [Primary osteoarthritis, left shoulder] Chronic Other connective tissue disease (1 source) Impingement syndrome of left shoulder region; 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: [Impingement syndrome of left shoulder] Episodic Other diseases of kidney and ureters (2 sources) Hyperparathyroidism due to renal insufficiency; 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: [Secondary hyperparathyroidism of renal origin] Onset: 8 08-10-2017 Chronic Thyroid disorders (1 source) Hypothyroidism 06-15-2014 Chronic Unclassified (1 source) Aortic aneurysm repair 06-15-2014 Unclassified (1 source) Entire aortic valve (body structure) 06-15-2014 Past or Other Problems Problem Classification Problem Date Documented Date Episodic/Chronic Complications of surgical procedures or medical care (2 sources) Drug-induced hypotension; 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: [Hypotension due to drugs] Onset: 05-25-2017 05-25-2017 Episodic Nonspecific chest pain (2 sources) Chest pain; 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: [Chest pain, unspecified] Onset: 07-14-2007 07-14-2007 Episodic Other aftercare (4 sources) Long-term current use of 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; 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: [MCC (current) use of 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s] Onset: 11-15-2014 11-15-2014 Episodic Residual codes; unclassified (1 source) H/O: major vascular surgery; 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: [Other specified postprocedural states] Onset: 05-20-2015 05-20-2015 Episodic Residual codes; unclassified (1 source) History of repair of ascending aorta; 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: [Other specified postprocedural states] Onset: 05-20-2015 05-20-2015 Episodic Spondylosis; intervertebral disc disorders; other back problems (2 sources) Backache; 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: [Other specified dorsopathies, site unspecified] Onset: 10-13-2000 07-09-2003 Episodic Results Test Name Value Interpretation Reference Range Facil ity Encounters Encounter Date Encounter Type Care Provider Facility Start: 11-10-2022 Telephone encounter Neurology Provid er Neurology Procedures Date Procedure Procedure Detail Performing Clinician Start: 11-29-2017 Adult depression scr eening assessment Richie Beebe MD Work Phone: Aortic valve replace ment and replacement of ascending aorta ANTONIO SHAH MD Plan of Treatment Date Care Activity Detail Author Start: 11-13-2022 Influenza vaccination INFLUENZA (#1) [facility] Start: 09-12-2022 DIABETES SCREEN DIABETES SCREEN [facility] Start: 03-15-2022 ADVANCE DIRECTIVE DISCUSSION ADVANCE DIRECTIVE DISCUSSION [facility] Start: 03-15-2022 DEPRESSION ASSESSMENT DEPRESSION ASS ESSMENT [facility] Start: 11-13-2021 Influenza vaccination INFLUENZA (#1) [facility] Start: 07-15-2021 SERUM CREATININE SERUM CREATININE [facility] Start: 03-15-2021 ADVANCE DIRECTIVE DISCUSSION ADVANCE DIRECTIVE DISCUSSION [facility] Start: 11-13-2020 COVID-19 VACCINE (3 - Booster for Pfizer series) COVID-19 VACCINE (3 - Booster for Pfizer series) [facility] Start: 09-12-2020 HEMOGLOBIN/HEMATOCRIT HEMOGLOBIN/HEM ATOCRIT [facility] Start: 08-08-2020 COVID-19 VACCINE (3 - Pfizer series) COVID-19 VACCINE (3 - Pfizer series) [facility] Start: 11-29-2018 Adult depression scr eening assessment DEPRESSION SCREENING [facility] Start: 01-15-2008 BONE DENSITY BONE DENSITY [facility] Start: 01-15-2008 PNEUMOCOCCAL: 65+ (1 - PCV) PNEUMOCOCCAL: 65+ (1 - PCV) [facility] Start: 01-15-2008 PNEUMOCOCCAL: 65+ (2 - PCV) PNEUMOCOCCAL: 65+ (2 - PCV) [facility] Start: 1993 SHINGRIX VACCINE (1 of 2) HSU GRIX VACCINE (1 of 2) [facility] Start: 1962 Urine microalbumin profile DTAP,TDAP ,TD (1 - Tdap) [facility] Start: 1961 ANNUAL PCP TEAM ORCHARD PRUNER RENETTA DISEASE VISIT ANNUAL PCP TEAM CHRONIC DISEASE VISIT [facility] Start: 1961 BP CONTROLLED (<130/80) BP CONTROLLE D (<130/80) [facility] Start: 1961 HEPATITIS C SCREENING HEPATITIS C GA MONAE [facility] Immunizations Immunization Date Immunization Notes Care Provider Leonidas shen 06-15-2014 tetanus and diphther ia toxoids, adsorbed, preservative free, for adult use (2 Lf of tetanus toxoid and 2 Lf of diphtheria toxoid) ANTONIO SHAH MD [facility] 12-13-2000 pneumococcal polysaccharide vaccine, 23 valent Richie Beebe MD Work Phone: [facility] Payers Date Payer Category Payer [employer] ( and others) [id number] 2022 Medicare [id number] 2020 Unknown FOR LIFE [id number] 2020-Present [phone] [address] [place] [address] Indemnity [id number] 2020 Unknown FOR LIFE [id number] 2020-Present [phone] [address] [place] [address] Indemnity [id number] 2009 Medicare MEDICARE MEDICAR E A AND B [id number] 2009-Present [phone] [address] [address] [place] [address] Medicare [id number] 2009 Medicare MEDICARE MEDICAR E A AND B [id number] 2009-Present [phone] [place] [address] Medicare [id number] 1943 Unknown [id number] Social History Date Type Detail Facility Tobacco smoking status NHIS Never smoked tobacco 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 Start: 1945 Sex Assigned At Not on file C [facility] Sex Assigned At Sex [facility] Start: 02-17-2020 End: 02-27-2021 History of Social function [facility] Start: 02-17-2020 End: 02-27-2021 Tobacco use panel [facility] Adult Depression Scr eening Assessment [address] [facility] Functional Status Date Assessment Result Facility 06-08-2022 Functional Status Home Living Ad ditional Information OBJECTIVE Posture: forward head posture Sensation: no abnormalities or asymmetries Reflexes: NT Edema: palpation of bulge at mid section of L humerus - suspect muscle tear and retraction Shoulder AROM: flexion 90deg, abduction 90deg, IR and ER functional MMT: RUHarry 06/17 [facility] Note 11-11-2022 Telephone Encounter - Brandie Hernandez - 11/11/2022 4:27 PM EDTTelephone Encounter - Brandie Hernandez - 11/10/2022 9:41 AM EDTTelephone Encounter - Rosita Nova OCCA - 11/10/2022 8:09 AM EDT Note Date & Type Note Facility 11-11-2022 Miscellaneous Notes Formattin g of this note might be different from the original. Left the patient another voice message to call the office to schedule an appointment. We have two appointments scheduled to see if the patient would go to the [place] location or go to the [place] location. Left the patient a voice message to call the office to schedule an appointment with a neurologist for cognitive decline. Fax received at [place] office from [facility] requesting patient be seen by Dr. Lopez for cognitive decline. Demographics and most recent OV note included. Fax scanned into patients chart as Consult - Neurology. Routing TE to Brandie Mehta for scheduling. JULES Zaidi documented in this encounter [facility] Note 10-09-2021 Telephone Encounter - Tita Cordoba - 10/09/2021 8:41 AM EDT Note Date & Type Note Facility 10-09-2021 Miscellaneous Notes Call from patient requesting refill. Pending Prescriptions Disp Refills FLECAINIDE 100 MG TABLET 180 tablet 3 Sig: TAKE 1 TABLET EVERY 12 HOURS MURIEL: Yes Patient last seen 02/27/21 Tita Cordoba documented in this encounter [facility] History of Past illness Narrative 05-25-2017 Note Date & Type Note Facility documented as of this encounter (statuses as of 10/09/2021) [facility] History of Past illness Narrative 05-25-2017 Note Date & Type Note Facility documented as of this encounter (statuses as of 11/12/2022) 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 Advance Directive(s) 02/17/2021 1:38 PM Advance Directive(s) 10/06/2016 9:10 AM Advance Directive(s) 11/27/2015 9:44 AM Advance Directive(s) 11/26/2015 10:07 AM Summary Purpose Family History No Family History Records FoundNo Family History Records Found Additional Source Comments Source Comments (unrecognize d section and content) In the event this informatio n is protected by the Federal Confidentiality of Alcohol and Drug Abuse Patient Records regulations: The Federal rules restrict any use of the information to criminally investigate or prosecute any alcohol or drug abuse patient[facility] the event this information is protected by the Federal Confidentiality of Alcohol and Drug Abuse Patient Records regulations: The Federal rules restrict any use of the information to criminally investigate or prosecute any alcohol or drug abuse patient.[facility] Reason for Visit (unrecogniz ed section and content) Reason Comments Consult Referral Request Care Teams (unrecognized sec tion and content) Planer Hand Relationship Specialty Start Date End Date Kishore Ricci MD PCP - General Family Medicine 11/25/15 INFORMATION SOURCE (unrecogn ized section and content) DATE CREATED AUTHOR AUTHOR'S ORGANIZ ATION 11/14/2022 [facility] FOR RECORDS PERTAINING TO PATIENTS WHO ARE OR HAVE BEEN ENROLLED IN A CHEMICAL DEPENDENCY/SUBSTANCEABUSE PROGRAM, SOME INFORMATION MAY BE OMITTED. This clinical summary was aggregated from multiple sources. Caution should be exercised in using it in the provision of clinical care. This summary normalizes information from multiple sources, and as a consequence, information in this document may materially change the coding, format and clinical context of patient data. In addition, data may be omitted in some cases. CLINICAL DECISIONS SHOULD BE BASED ON THE PRIMARY CLINICAL RECORDS. [facility]. provides no warranty or guarantee of the accuracy or completeness of information in this document.
== END | disposition home or self-care (01) ==
LOC: LAB 09:56
PROVIDERS: PCP Family Medicine; Visit Provider Internal Medicine Cardiovascular Disease
DX: Z95.2 Presence of prosthetic heart valve (principal)
CPT/HCPCS: 36415; 85610

== ENCOUNTER → 2023-03-31 | Outpatient (CLI) | payer MEDICARE, OTHER, SELFPAY ==
[2023-03-31 10:49] LABS: Absolute Lymphocyte Count 0.87 X10^3/uL (0.83-4.51); Absolute Neutrophil Count 6.6 X10^3/uL (2.0-7.7); Basophil# 0.04 X10^3/uL; Basophil% 0.5 % (0-1); Eosinophil# 0.32 X10^3/uL; Eosinophils% 3.8 % (0-5); Hematocrit 31.9 % (37-47); Hemoglobin 10.4 g/dL (12.0-15.0); Lymphocyte # 0.87 X10^3/ul (0.83-4.51); Lymphocyte % 10.5 % (19-41); Mean Corp Hgb Conc 32.6 g/dL (32-36); Mean Corpuscular Hgb 29.5 pg (27.0-32.0); Mean Corpuscular Volume 90.4 fL (81-99); Mean Platelet Vol. 9.2 fl (6.2-12.0); Monocyte# 0.42 X10^3/uL; NRBC Flagged by Analyzer 0 % (0-5); Neutrophil # 6.63 X10^3/uL (2.7-7.7); Neutrophil % 79.7 % (47-70); Platelet Count 294 K/mm3 (150-450); RBC Distribution Width CV 13.4 % (11.6-14.6); RBC Distribution Width SD 43.8 fl (35.1-43.9); Red Blood Count 3.53 M/mm3 (4.2-5.4); White Blood Count 8.3 K/mm3 (4.4-11.0)
[2023-03-31 10:56] LABS: International Normalized Ratio 4.5; Prothrombin Time (Protime)PT. 43.4 SECONDS (11.7-14.9)
[2023-03-31 11:23] LABS: Thyroid Stim Hormone (TSH) 4.46 uIU/mL (0.358-3.74)
== END | disposition home or self-care (01) ==
LOC: LAB 08:57
PROVIDERS: PCP Family Medicine; Visit Provider Internal Medicine Cardiovascular Disease
DX: D64.9 Anemia, unspecified (principal); E03.9 Hypothyroidism, unspecified; Z95.2 Presence of prosthetic heart valve
CPT/HCPCS: 36415; 84443; 85025; 85610

== ENCOUNTER → 2023-04-05 | Outpatient (CLI) | payer MEDICARE, OTHER, SELFPAY ==
[2023-04-05 11:14] LABS: International Normalized Ratio 3.7; Prothrombin Time (Protime)PT. 37.4 SECONDS (11.7-14.9)
== END | disposition home or self-care (01) ==
LOC: LAB 09:32
PROVIDERS: PCP Family Medicine; Visit Provider Internal Medicine Cardiovascular Disease
DX: Z95.2 Presence of prosthetic heart valve (principal)
CPT/HCPCS: 36415; 85610

== ENCOUNTER → 2023-04-12 | Outpatient (CLI) | payer MEDICARE, OTHER, SELFPAY ==
[2023-04-12 11:53] LABS: International Normalized Ratio 3.8; Prothrombin Time (Protime)PT. 38.3 SECONDS (11.7-14.9)
== END | disposition home or self-care (01) ==
LOC: LAB 10:01
PROVIDERS: PCP Family Medicine; Visit Provider Internal Medicine Cardiovascular Disease
DX: Z95.2 Presence of prosthetic heart valve (principal)
CPT/HCPCS: 36415; 85610

== ENCOUNTER → 2023-04-19 | Outpatient (CLI) | payer MEDICARE, OTHER, SELFPAY ==
--- OUTSIDE RECORDS SUMMARY | 2023-04-19 07:20 | XMS RPT_ITS | CCD ---
Author Name Unknown Address [address] [facility] [address] [place] [address] Organization [facility] Care Team Providers Care Network Communications Engineer Name Role Phone Kishore Ricci MD Primary Care Provider JAILYN MO MD Primary Care Physician [phone] ANTONIO SHAH Attending Unavailable JAILYN MO MD Primary Care Unavailable ANTONIO SHAH Referring Unavailable Kishore Ricci MD Primary Care Provider Allergies Allergy Classification Reported Allergen(s) Allergy Type Date of Onset Reaction(s) Facility (2 sources) celecoxib Drug Allergy 5 Shortness of Breath [facility] Work Phone: (2 sources) Gemfibrozil Drug Allergy 7 GI Upset, Myalgia [facility] (2 sources) Sulfonamides (Antibiotic) Drug Allergy 1 Unknown [facility] (1 source) Sulfamethoxazole; 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: [sulfamethoxazole ] Drug Allergy [facility] Medications Current Medications Medication Drug Class(es) Dates Sig (Normalized) Sig (Original) acetaminophen 325 mg / HYDROcodone bitartrate 5 mg oral tablet (1 source) Opioid Agonist Start: 06-15-2014 take 1 tablet by mouth every six hours [place] 325- 5 mg oral tablet Dose = [...] sources) Long-term current use of 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; 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: [FPC (current) use of 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s] Onset: 11-15-2014 11-15-2014 [...] Author Start: 11-13-2022 Influenza vaccination INFLUENZA (#1) [facility] Start: 09-12-2022 DIABETES SCREEN DIABETES SCREEN [facility] Start: 03-15-2022 ADVANCE DIRECTIVE DISCUSSION ADVANCE DIRECTIVE DISCUSSION [facility] Start: 03-15-2022 DEPRESSION ASSESSMENT DEPRESSION ASS ESSMENT [facility] Start: 11-13-2021 Influenza vaccination INFLUENZA (#1) [facility] Start: 07-15-2021 SERUM CREATININE SERUM CREATININE Cl [facility] Start: 03-15-2021 ADVANCE DIRECTIVE DISCUSSION ADVANCE DIRECTIVE DISCUSSION [facility] Start: 11-13-2020 COVID-19 VACCINE (3 - Booster for Pfizer series) COVID-19 VACCINE (3 - Booster for Pfizer series) [facility] Start: 09-12-2020 HEMOGLOBIN/HEMATOCRIT HEMOGLOBIN/HEM ATOCRIT [facility] Start: 08-08-2020 COVID-19 VACCINE (3 - Pfizer series) COVID-19 VACCINE (3 - Pfizer series) [facility] Start: 11-29-2018 Adult depression scr ning assessment DEPRESSION SCREENING [facility] Start: 01-15-2008 BONE DENSITY BONE DENSITY [facility] Start: 01-15-2008 PNEUMOCOCCAL: 65+ (1 - PCV) PNEUMOCOCCAL: 65+ (1 - PCV) [facility] Start: 01-15-2008 PNEUMOCOCCAL: 65+ (2 - PCV) PNEUMOCOCCAL: 65+ (2 - PCV) [facility] Start: 1993 SHINGRIX VACCINE (1 of 2) HSU GRIX VACCINE (1 of 2) [facility] Start: 1962 Urine microalbumin profile DTAP,TDAP ,TD (1 - Tdap) [facility] Start: 1961 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 Immunizations Immunization Date Immunization Notes Care Provider Leonidas shen 06-15-2014 tetanus and diphther ia toxoids, adsorbed, preservative free, for adult use (2 Lf of tetanus toxoid and 2 Lf of diphtheria toxoid) ANTONIO SHAH MD [facility] 12-13-2000 pneumococcal polysaccharide vaccine, 23 valent Richie Beebe MD Work Phone: [facility] Payers Date Payer Category Payer [employer] ( and others) [id number] 2022 Medicare [id number] 2020 Unknown FOR LIFE [id number] 2020-Present [phone] [address] [place] [address] Indemnity [id number] 2020 Unknown FOR LIFE [id number] 2020-Present [phone] [address] [place] [address] Indemnity [id number] 2009 Medicare MEDICARE MEDICAR E A AND B [id number] 2009-Present [phone] [address] [address] [place] [address] Medicare [id number] 2009 Medicare MEDICARE MEDICAR E A AND B [id number] 2009-Present [phone] [place] [address] Medicare [id number] 1943 Unknown [id number] Social History Date Type Detail Facility Tobacco smoking status NHIS Never smoked tobacco [facility] Start: 02-27-2021 Alcohol intake 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 alcohol (finding) [facility] Start: 1945 Sex Assigned At Not on file [facility] Sex Assigned At Sex [facility] Start: 02-17-2020 End: 02-27-2021 [facility] Start: 02-17-2020 End: 02-27-2021 Tobacco use panel [facility] Adult Depression Scr eening Assessment 2 [facility] Functional Status Date Assessment Result Facility 06-08-2022 Functional Status Home Living Ad ditional Information OBJECTIVE Posture: forward head posture Sensation: no abnormalities or asymmetries Reflexes: NT Edema: palpation of bulge at mid section of L humerus - suspect muscle tear and retraction Shoulder AROM: flexion 90deg, abduction 90deg, IR and ER functional MMT: WALDEMAR 06/17 [facility] Note 11-11-2022 Telephone Encounter - Brandie Hernandez [...] if the patient would go to the [place] location or go to the [place] location. Left the patient a voice message to call the office to schedule an appointment with a neurologist for cognitive decline. Fax received at [facility] from [facility] requesting patient be seen by Dr. Lopez for cognitive decline. Demographics and most recent OV note included. Fax scanned into patients chart as Consult - Neurology. Routing TE to Brandie Mehta for scheduling. JULES Zaidi documented in this encounter [facility] Note 10-09-2021 Telephone Encounter - Tita Cordoba - 10/09/2021 8:41 AM EDT Note Date & Type Note Facility 10-09-2021 Miscellaneous Notes Call from patient requesting refill. Pending Prescriptions Disp Refills FLECAINIDE 100 MG TABLET 180 tablet 3 Sig: TAKE 1 TABLET EVERY 12 HOURS MURIEL: Yes Patient last seen 02/27/21 Tita Cordoba documented in this encounter [facility] History of Past illness Narrative 05-25-2017 Note Date & Type Note Facility documented as of this encounter (statuses as of 10/09/2021) [facility] History of Past illness Narrative 05-25-2017 Note Date & Type Note Facility documented as of this encounter (statuses as of 11/12/2022) [facility] Evaluation + Plan note Note Date & Type Note Facility Evaluation + Plan note No data available for this section [facility] Hospital Discharge instructions Note Date & Type Note Facility Hospital Discharge instructions No data available for this section [facility] Progress note Note Date & Type Note Facility Progress note No data available for this section 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 Advance Directive(s) 02/17/2021 1:38 PM [...] or prosecute any alcohol or drug abuse patient.[facility] the event this information is protected by the Federal Confidentiality of Alcohol and Drug Abuse Patient Records regulations: The Federal rules restrict any use of the information to criminally investigate or prosecute any alcohol or drug abuse patient.[facility] Reason for Visit (unrecogniz ed section and content) Reason Comments Consult Referral Request Care Teams (unrecognized sec tion and content) Network Communications Engineer Relationship Specialty Start Date End Date Kishore Ricci MD PCP - General Family Medicine 11/25/15 INFORMATION SOURCE (unrecogn ized section and content) DATE CREATED AUTHOR AUTHOR'S ORGANIZ ATION 11/14/2022 [facility] FOR RECORDS PERTAINING TO PATIENTS WHO ARE [...] BE BASED ON THE PRIMARY CLINICAL RECORDS. [facility] [employer] [facility]. provides no warranty or guarantee of the accuracy or completeness of information in this document.
[2023-04-19 10:40] LABS: Absolute Lymphocyte Count 1.18 X10^3/uL (0.83-4.51); Absolute Neutrophil Count 4.8 X10^3/uL (2.0-7.7); Basophil# 0.04 X10^3/uL; Basophil% 0.6 % (0-1); Eosinophil# 0.45 X10^3/uL; Eosinophils% 6.4 % (0-5); Hematocrit 33.6 % (37-47); Hemoglobin 10.7 g/dL (12.0-15.0); Lymphocyte # 1.18 X10^3/ul (0.83-4.51); Lymphocyte % 16.8 % (19-41); Mean Corp Hgb Conc 31.8 g/dL (32-36); Mean Corpuscular Volume 91.1 fL (81-99); Mean Platelet Vol. 9.5 fl (6.2-12.0); Monocyte# 0.55 X10^3/uL; Monocyte% 7.8 % (0-10); NRBC Flagged by Analyzer 0 % (0-5); Neutrophil # 4.78 X10^3/uL (2.7-7.7); Platelet Count 232 K/mm3 (150-450); RBC Distribution Width SD 47.3 fl (35.1-43.9); Red Blood Count 3.69 M/mm3 (4.2-5.4)
[2023-04-19 11:13] LABS: Anion Gap 7 (5-15); BUN 23 mg/dL (7-18); BUN/Creat Ratio 18.1 RATIO (10-20); Calcium,Total 8.7 mg/dL (8.5-10.1); Chloride 108 mmol/L (98-107); Creatinine, Serum 1.27 mg/dL (0.55-1.02); EST Glomerular Filtration Rate 43 mL/min (>60); Est Glom Filt Rate - Afr Amer 52 mL/min (>60); Glucose 89 mg/dL (74-106); Potassium 3.7 mmol/L (3.5-5.1); Sodium Level 138 mmol/L (136-145)
[2023-04-19 11:37] LABS: International Normalized Ratio 2.2; Prothrombin Time (Protime)PT. 24.4 SECONDS (11.7-14.9)
[2023-04-22 07:09] LABS: Serotonin, Serum 7 ng/mL (8-217)
== END | disposition home or self-care (01) ==
LOC: LAB 07:18
PROVIDERS: PCP Family Medicine; Visit Provider Internal Medicine Cardiovascular Disease
DX: Z95.2 Presence of prosthetic heart valve (principal); D64.9 Anemia, unspecified; D3A.8 Other benign neuroendocrine tumors
CPT/HCPCS: 36415; 80048; 84260; 85025; 85610

== ENCOUNTER → 2023-05-06 | Outpatient (CLI) | payer MEDICARE, OTHER, SELFPAY ==
[2023-05-06 10:43] LABS: International Normalized Ratio 3.7; Prothrombin Time (Protime)PT. 37.4 SECONDS (11.7-14.9)
== END | disposition home or self-care (01) ==
LOC: LAB 08:36
PROVIDERS: PCP Family Medicine; Visit Provider Internal Medicine Cardiovascular Disease
DX: Z95.2 Presence of prosthetic heart valve (principal)
CPT/HCPCS: 36415; 85610

== ENCOUNTER → 2023-05-14 | Outpatient (CLI) | payer MEDICARE, OTHER, SELFPAY ==
[2023-05-14 11:23] LABS: International Normalized Ratio 1.9; Prothrombin Time (Protime)PT. 21.9 SECONDS (11.7-14.9)
== END | disposition home or self-care (01) ==
LOC: LAB 11:00
PROVIDERS: PCP Family Medicine; Visit Provider Internal Medicine Cardiovascular Disease
DX: Z95.2 Presence of prosthetic heart valve (principal)
CPT/HCPCS: 36415; 85610

== ENCOUNTER → 2023-05-20 | Outpatient (CLI) | payer MEDICARE, OTHER, SELFPAY ==
--- OUTSIDE RECORDS SUMMARY | 2023-05-20 08:18 | XMS RPT_ITS | CCD ---
Author Name Unknown Address [address] [facility] [address] [place] [address] Organization [facility] Care Team Providers Care Hematology Specialist Name Role Phone Kishore Ricci MD Primary Care Provider JAILYN MO MD Primary Care Physician [phone] ANTONIO SHAH Attending Unavailable JAILYN MO MD Primary Care Unavailable ANTONIO SHAH Referring Unavailable Kishore Ricci MD Primary Care Provider Allergies Allergy Classification Reported Allergen(s) Allergy Type Date of Onset Reaction(s) Facility (2 sources) celecoxib Drug Allergy 5 Shortness of Breath [facility] Work Phone: (2 sources) Gemfibrozil Drug Allergy 7 GI Upset, Myalgia [facility] (2 sources) Sulfonamides (Antibiotic) Drug Allergy 1 Unknown [facility] (1 source) Sulfamethoxazole; 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: [sulfamethoxazole ] Drug Allergy [facility] Medications Current Medications Medication Drug Class(es) Dates Sig (Normalized) Sig (Original) acetaminophen 325 mg / HYDROcodone bitartrate 5 mg oral tablet (1 source) Opioid Agonist Start: 06-15-2014 take 1 tablet by mouth every six hours [place] 325- 5 mg oral tablet Dose = [...] sources) Long-term current use of 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; 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: [terminologist (current) use of 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s] Onset: 11-15-2014 11-15-2014 [...] Author Start: 11-13-2022 Influenza vaccination INFLUENZA (#1) [facility] Start: 09-12-2022 DIABETES SCREEN DIABETES SCREEN [facility] Start: 03-15-2022 ADVANCE DIRECTIVE DISCUSSION ADVANCE DIRECTIVE DISCUSSION [facility] Start: 03-15-2022 DEPRESSION ASSESSMENT DEPRESSION ASS ESSMENT [facility] Start: 11-13-2021 Influenza vaccination INFLUENZA (#1) [facility] Start: 07-15-2021 SERUM CREATININE SERUM CREATININE Cl [facility] Start: 03-15-2021 ADVANCE DIRECTIVE DISCUSSION ADVANCE DIRECTIVE DISCUSSION [facility] Start: 11-13-2020 COVID-19 VACCINE (3 - Booster for Pfizer series) COVID-19 VACCINE (3 - Booster for Pfizer series) [facility] Start: 09-12-2020 HEMOGLOBIN/HEMATOCRIT HEMOGLOBIN/HEM ATOCRIT [facility] Start: 08-08-2020 COVID-19 VACCINE (3 - Pfizer series) COVID-19 VACCINE (3 - Pfizer series) [facility] Start: 11-29-[address] 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 RENETTA DISEASE VISIT ANNUAL PCP TEAM CHRONIC DISEASE VISIT [facility] Start: 1961 BP CONTROLLED (<130/80) BP CONTROLLE D (<130/80) [facility] Start: 1961 HEPATITIS C SCREENING HEPATITIS C HI MONAE [facility] c Immunizations Immunization Date Immunization Notes Care Provider Leonidas shen 06-15-2014 tetanus and diphther ia toxoids, adsorbed, preservative free, for adult use (2 Lf of tetanus toxoid and 2 Lf of diphtheria toxoid) ANTONIO SHAH MD [facility] 12-13-2000 pneumococcal polysaccharide vaccine, 23 valent Richie Beebe MD Work Phone: [facility] Payers Date Payer Category Payer [employer] ( and others) [id number] 2022 Medicare [id number] 2020 Unknown FOR LIFE [id number] 2020-Present [phone] [place] [address] Indemnity [id number] 2020 Unknown FOR LIFE [id number] 2020-Present [phone] [place] [address] Indemnity [id number] 2009 Medicare MEDICARE MEDICAR E A AND B [id number] 2009-Present [phone] [address] [address] [place] [address] Medicare [id number] 2009 Medicare MEDICARE MEDICAR E A AND B [id number] 2009-Present [phone] [place] [address] Medicare [id number] 1945 Unknown [id number] Social History Date Type Detail Facility Tobacco smoking status NHIS Never smoked tobacco [facility] Start: 02-27-2021 Alcohol intake 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 alcohol (finding) [facility] Start: 1945 Sex Assigned At Not on file C [facility] Sex Assigned At Sex [facility] Start: 02-17-2020 End: 02-27-2021 History of Social function [facility] Start: 02-17-2020 End: 02-27-2021 Tobacco use panel [facility] Adult Depression Scr eening Assessment 2 [facility] Functional Status Date Assessment Result Facility 06-08-2022 Functional Status Home Living Ad ditional Information OBJECTIVE Posture: forward head posture Sensation: no abnormalities or asymmetries Reflexes: NT Edema: palpation of bulge at mid section of L humerus - suspect muscle tear and retraction Shoulder AROM: flexion 90deg, abduction 90deg, IR and ER functional MMT: WALDEMAR 06/17 [facility] Note 11-11-2022 Telephone Encounter - Brandie Hernandez [...] if the patient would go to the [place] location or go to the [place] location. Left the patient a voice message to call the office to schedule an appointment with a neurologist for cognitive decline. Fax received at [facility] from [facility] requesting patient be seen by Dr. Lopez for cognitive decline. Demographics and most recent OV note included. Fax scanned into patients chart as Consult - Neurology. Routing TE to Brandie Mehta for scheduling. JULES Zaidi documented in this encounter [facility] Note 10-09-2021 Telephone Encounter - Tita Cordoba - 10/09/2021 8:41 AM EDT Note Date & Type Note Facility 10-09-2021 Miscellaneous Notes Call from patient requesting refill. Pending Prescriptions Disp Refills FLECAINIDE 100 MG TABLET 180 tablet 3 Sig: TAKE 1 TABLET EVERY 12 HOURS MURIEL: Yes Patient last seen 02/27/21 Tita Cordoba documented in this encounter [facility] History of Past illness Narrative 05-25-2017 Note Date & Type Note Facility documented as of this encounter (statuses as of 10/09/2021) [facility] History of Past illness Narrative 05-25-2017 Note Date & Type Note Facility documented as of this encounter (statuses as of 11/12/2022) [facility] Evaluation + Plan note Note Date & Type Note Facility Evaluation + Plan note No data available for this section [facility] Hospital Discharge instructions Note Date & Type Note Facility Hospital Discharge instructions No data available for this section [facility] Progress note Note Date & Type Note Facility Progress note No data available for this section [facility] Advance Directives No Advanced Directives Records FoundDocuments on File Type Date Recorded Patient Student Development Advisor Expl anation Advance Directive(s) 02/17/2021 1:38 PM [...] or prosecute any alcohol or drug abuse [facility] the event this information is protected by the Federal Confidentiality of Alcohol and Drug Abuse Patient Records regulations: The Federal rules restrict any use of the information to criminally investigate or prosecute any alcohol or drug abuse patient[facility] Reason for Visit (unrecogniz ed section and content) Reason Comments Consult Referral Request Care Teams (unrecognized sec tion and content) Hematology Specialist Relationship Specialty Start Date End Date Kishore Ricci MD PCP - General Family Medicine 11/25/15 INFORMATION SOURCE (unrecogn ized section and content) DATE CREATED AUTHOR AUTHOR'S ORGANIZ ATION 11/14/2022 [facility] FOR RECORDS PERTAINING TO PATIENTS WHO [...] BE BASED ON THE PRIMARY CLINICAL RECORDS. [employer] provides no warranty or guarantee of the accuracy or completeness of information in this document.
[2023-05-20 11:00] LABS: International Normalized Ratio 1.7
== END | disposition home or self-care (01) ==
LOC: LAB 08:02
PROVIDERS: PCP Family Medicine; Visit Provider Internal Medicine Cardiovascular Disease
DX: Z95.2 Presence of prosthetic heart valve (principal); Z79.01 Long term (current) use of 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s
CPT/HCPCS: 36415; 85610

== ENCOUNTER → 2023-05-21 | Outpatient (CLI) | payer MEDICARE, OTHER, SELFPAY ==
--- OUTSIDE RECORDS SUMMARY | 2023-05-21 14:26 | XMS RPT_ITS | CCD ---
Author Name Unknown Address [address] [facility] [address] [place] [address] Organization [facility] Care Team Providers Care Entertainment [employer] Media Correspondent Name Role Phone Kishore Ricci MD Primary Care Provider 1( [phone] JAILYN MO MD Primary Care Physician ANTONIO SHAH Attending Unavailable JAILYN MO MD Primary Care Unavailable ANTONIO SHAH Referring Unavailable Kishore Ricci MD Primary Care Provider Allergies Allergy Classification Reported Allergen(s) Allergy Type Date of Onset Reaction(s) Facility (2 sources) celecoxib Drug Allergy 5 Shortness of Breath [facility] Work Phone: (2 sources) Gemfibrozil Drug Allergy 7 GI Upset, Myalgia [facility] (2 sources) Sulfonamides (Antibiotic) Drug Allergy 1 Unknown [facility] (1 source) Sulfamethoxazole; 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: [sulfamethoxazole ] Drug Allergy [facility] Medications Current Medications Medication Drug Class(es) Dates Sig (Normalized) Sig (Original) acetaminophen 325 mg / HYDROcodone bitartrate 5 mg oral tablet (1 source) Opioid Agonist Start: 06-15-2014 take 1 tablet by mouth every six hours [place] 325- 5 mg oral tablet Dose = [...] sources) Long-term current use of 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; 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: [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] Onset: 11-15-2014 11-15-2014 [...] Author Start: 11-13-2022 Influenza vaccination INFLUENZA (#1) [facility] Start: 09-12-2022 DIABETES SCREEN DIABETES SCREEN [facility] Start: 03-15-2022 ADVANCE DIRECTIVE DISCUSSION ADVANCE DIRECTIVE DISCUSSION [facility] Start: 03-15-2022 DEPRESSION ASSESSMENT DEPRESSION ASS ESSMENT [facility] Start: 11-13-2021 Influenza vaccination INFLUENZA (#1) [facility] Start: 07-15-2021 SERUM CREATININE SERUM CREATININE Cl [facility] Start: 03-15-2021 ADVANCE DIRECTIVE DISCUSSION ADVANCE DIRECTIVE DISCUSSION [facility] Start: 11-13-2020 COVID-19 VACCINE (3 - Booster for Pfizer series) COVID-19 VACCINE (3 - Booster for Pfizer series) [facility] Start: 09-12-2020 HEMOGLOBIN/HEMATOCRIT HEMOGLOBIN/HEM ATOCRIT [facility] Start: 08-08-2020 COVID-19 VACCINE (3 - Pfizer series) COVID-19 VACCINE (3 - Pfizer series) [facility] Start: 11-29-2018 Adult depression scr [facility] assessment DEPRESSION SCREENING [facility] Start: 01-15-2008 BONE DENSITY BONE DENSITY [facility] Start: 01-15-2008 PNEUMOCOCCAL: 65+ (1 - PCV) PNEUMOCOCCAL: 65+ (1 - PCV) [facility] Start: 01-15-2008 PNEUMOCOCCAL: 65+ (2 - PCV) PNEUMOCOCCAL: 65+ (2 - PCV) [facility] Start: 1993 SHINGRIX VACCINE (1 of 2) HSU GRIX VACCINE (1 of 2) [facility] Start: 1962 Urine microalbumin profile DTAP,TDAP ,TD (1 - Tdap) [facility] Start: 1961 ANNUAL PCP TEAM 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 INSTRUCTOR R[place]ETTA DISEASE VISIT ANNUAL PCP TEAM CHRONIC DISEASE VISIT [facility] Start: 1961 BP CONTROLLED (<130/80) BP CONTROLLE D (<130/80) [facility] Start: 1961 HEPATITIS C SCREENING HEPATITIS C CA MONAE [facility] Immunizations Immunization Date Immunization Notes Care Provider Leonidas shen 06-15-2014 tetanus and diphther ia toxoids, adsorbed, preservative free, for adult use (2 Lf of tetanus toxoid and 2 Lf of diphtheria toxoid) ANTONIO SHAH MD [facility] 12-13-2000 pneumococcal polysaccharide vaccine, 23 valent Richie Beebe MD Work Phone: [facility] Payers Date Payer Category Payer [employer] ( and others) [id number] 2022 Medicare [id number] 2020 Unknown FOR LIFE [id number] 2020-Present [phone] [address] [place] [address] Indemnity [id number] 2020 Unknown FOR LIFE [id number] 2020-Present [phone] [address] [place] [address] Indemnity [id number] 2009 Medicare MEDICARE MEDICAR E A AND B [id number] 2009-Present [phone] [address] [address] [place] [address] Medicare [id number] 2009 Medicare MEDICARE MEDICAR E A AND B [id number] 2009-Present [phone] [place] [address] Medicare [id number] 1945 Unknown [id number] Social History Date Type Detail Facility Tobacco smoking status NHIS Never smoked tobacco [facility] Start: 02-27-2021 Alcohol intake 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-dr 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 and security officer of alcohol (finding) [facility] Start: 1945 Sex Assigned At Not on file C [facility] Sex Assigned At Sex [facility] Start: 02-17-2020 End: 02-27-2021 History of Social function [facility] Start: 02-17-2020 End: 02-27-2021 Tobacco use panel [facility] Adult Depression Scr eening Assessment 2 [facility] Functional Status Date Assessment Result Facility 06-08-2022 Functional Status Home Living Ad ditional Information OBJECTIVE Posture: forward head posture Sensation: no abnormalities or asymmetries Reflexes: NT Edema: palpation of bulge at mid section of L humerus - suspect muscle tear and retraction Shoulder AROM: flexion 90deg, abduction 90deg, IR and ER functional MMT: WALDEMAR 06/17 [facility] Note 11-11-2022 Telephone Encounter - Brandie [...] if the patient would go to the [place] location or go to the [place] location. Left the patient a voice message to call the office to schedule an appointment with a neurologist for cognitive decline. Fax received at [facility] from [facility] requesting patient be seen by Dr. Lopez for cognitive decline. Demographics and most recent OV note included. Fax scanned into patients chart as Consult - Neurology. Routing TE to Brandie Mehta for scheduling. JULES Zaidi documented in this encounter [facility] Note 10-09-2021 Telephone Encounter - Tita Cordoba - 10/09/2021 8:41 AM EDT Note Date & Type Note Facility 10-09-2021 Miscellaneous Notes Call from patient requesting refill. Pending Prescriptions Disp Refills FLECAINIDE 100 MG TABLET 180 tablet 3 Sig: TAKE 1 TABLET EVERY 12 HOURS MURIEL: Yes Patient last seen 02/27/21 Tita Cordoba documented in this encounter [facility] History of Past illness Narrative 05-25-2017 Note Date & Type Note Facility documented as of this encounter (statuses as of 10/09/2021) [facility] History of Past illness Narrative 05-25-2017 Note Date & Type Note Facility documented as of this encounter (statuses as of 11/12/2022) [facility] Evaluation + Plan note Note Date & Type Note Facility Evaluation + Plan note No data available for this section [facility] Hospital Discharge instructions Note Date & Type Note Facility Hospital Discharge instructions No data available for this section [facility] Progress note Note Date & Type Note Facility Progress note No data available for this section [facility] Advance Directives No Advanced Directives Records FoundDocuments on File Type Date Recorded Patient Artist'S Representative Expl anation Advance Directive(s) 02/17/2021 1:38 PM [...] or prosecute any alcohol or drug abuse patient.[facility] the event this information is protected by the Federal Confidentiality of Alcohol and Drug Abuse Patient Records regulations: The Federal rules restrict any use of the information to criminally investigate or prosecute any alcohol or drug abuse patient.[facility] Reason for Visit (unrecogniz ed section and content) Reason Comments Consult Referral Request Care Teams (unrecognized sec tion and content) Entertainment & Media Correspondent Relationship Specialty Start Date End Date Kishore Ricci MD PCP - General Family Medicine 11/25/15 INFORMATION SOURCE (unrecogn ized section and content) DATE CREATED AUTHOR AUTHOR'S ORGANIZ ATION 11/14/2022 [facility] FOR RECORDS PERTAINING TO PATIENTS WHO [...] BE BASED ON THE PRIMARY CLINICAL RECORDS. [employer] provides no warranty or guarantee of the accuracy or completeness of information in this document.
[2023-05-21 16:35] LABS: Free T3 1.6 pg/mL (2.18-3.98); T4 Free Direct 0.84 ng/dL (0.76-1.46)
== END | disposition home or self-care (01) ==
LOC: MFPLAB 13:51
PROVIDERS: PCP Family Medicine; Visit Provider Family Medicine
DX: E03.9 Hypothyroidism, unspecified (principal)
CPT/HCPCS: 36415; 84439; 84443; 84481

== ENCOUNTER → 2023-05-25 | Outpatient (CLI) | payer MEDICARE, OTHER, SELFPAY ==
[2023-05-25 11:04] LABS: International Normalized Ratio 2.9; Prothrombin Time (Protime)PT. 30.1 SECONDS (11.7-14.9)
== END | disposition home or self-care (01) ==
LOC: LAB 09:56
PROVIDERS: PCP Family Medicine; Visit Provider Internal Medicine Cardiovascular Disease
DX: Z95.2 Presence of prosthetic heart valve (principal)
CPT/HCPCS: 36415; 85610

== ENCOUNTER 2023-06-10 15:45 | Outpatient (RCR) | payer MEDICARE, OTHER, SELFPAY ==
[2023-06-03 17:45] LABS: International Normalized Ratio 2.3; Prothrombin Time (Protime)PT. 24.8 SECONDS (11.7-14.9)
[2023-06-11 06:25] LABS: INR Fingerstick 2.6; Prothrombin Time Fingerstick 26.2 SEC (11.7-14.9)
== END 2023-06-13 02:09 | disposition home or self-care (01) ==
LOC: MTLAB 15:45
PROVIDERS: PCP Family Medicine; Referring Provider Internal Medicine Cardiovascular Disease; Visit Provider Internal Medicine Cardiovascular Disease
DX: Z95.2 Presence of prosthetic heart valve (principal); Z79.01 Long term (current) use of 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s
CPT/HCPCS: 36415; 36416; 85610

== ENCOUNTER 2023-06-20 19:13 | Inpatient (IN) | payer MEDICARE, OTHER, SELFPAY ==
[2023-06-20] VITALS (11 sets, daily range): BP systolic 123–179; BP diastolic 64–89; PULSE 70–91; RESP 14–18; TEMP 36.4–36.7; O2SAT 96–99; BMI 34.0; BMI 38.9
--- NOTE | 2023-06-20 19:19 | CT_ITS ---
We are attempting to reach an attending provider to discuss findings. An addendum with communication details will be sent when the communication is complete. STUDY: CT BRAIN WITHOUT CONTRAST REASON FOR EXAM: Female, 78 years old. Neuro deficit, acute, stroke suspected RADIATION DOSAGE (If Supplied By Facility): CTDIvol = ( ) mGy, DLP = ( 779.24 ) mGycm TECHNIQUE: Transaxial CT imaging of the brain was performed without administration of intravenous contrast material. Individualized dose optimization techniques were used for this CT. COMPARISON: CTA brain September 24, 2022. Report only. FINDINGS: Normal soft tissue structures. Normal calvarium. There is moderate cerebral atrophy with widening of the extra-axial spaces and ventricular dilatation. Normal white matter tracts of the cerebral hemispheres. Normal basal ganglia and thalami. Normal brainstem. Normal cerebellum. There is no intracranial hemorrhage. There are no findings of an acute ischemic infarction. Normal visualized paranasal sinuses. CT/STROKE Brain/Head without Cont IMPRESSION: Normal unenhanced CT scan of the brain. Electronically Signed: Piotr Scott MD at 19:41 EDT ,
--- NOTE | 2023-06-20 19:19 | CT_ITS ---
We are attempting to reach an attending provider to discuss findings. An addendum with communication details will be sent when the communication is complete. STUDY: CTA HEAD AND NECK WITH CONTRAST REASON FOR EXAM: Female, 78 years old. Neuro deficit, acute, stroke suspected RADIATION DOSAGE (If Supplied By Facility): CTDIvol = ( 19.97 ) mGy, DLP = ( 680.96 ) mGycm TECHNIQUE: CT angiography was performed with a multi-detector CT scanner. Data acquisition was obtained from the skull base through the vertex following intravenous administration of IV 100mL Isovue-370. MIP images were reconstructed from the axial data set. Post-processing of the angiographic images was performed, with multiplanar reformation and 3D reconstruction. Individualized dose optimization techniques were used for this CT. COMPARISON: CT brain from today. CTA brain September 24, 2022. FINDINGS: Normal bilateral petrous carotid arteries. Normal right cavernous carotid artery with a normal supraclinoid bifurcation. Normal left cavernous carotid artery with a normal supraclinoid bifurcation. Normal right A1 segments of the anterior cerebral artery. Normal left A1 segments of the anterior cerebral artery. Normal intact anterior communicating artery (ACOM). Normal bilateral A2 segments of the anterior cerebral arteries. Normal right M1 and M2 segments of the middle cerebral arteries, with a normal M1 bifurcation. Normal left M1 and M2 segments of the middle cerebral arteries, with a normal M1 bifurcation. Normal right posterior communicating artery (PCOM). There is non-visualization of the left posterior communicating artery (PCOM). Normal bilateral vertebral arteries. Normal basilar artery with a normal basilar bifurcation. The visualized bilateral superior cerebellar (SCA) arteries are normal. Normal bilateral P1, P2 and visualized P3 segments of the posterior cerebral arteries. There is no demonstrated aneurysm of the ione of [place]. There is no demonstrated abnormality of the visualized brain. AORTIC ARCH: Normal visualized aortic arch. Normal origins of the brachiocephalic, left common carotid, and left subclavian arteries. RIGHT CAROTID ARTERIES: Normal right common carotid artery (CCA). Normal right common carotid bulb. Normal origin of the right internal carotid (ICA) artery without a hemodynamically significant stenosis. Normal visualized cervical portion of the right internal carotid artery. Normal origin of the right external carotid artery (ECA). LEFT CAROTID ARTERIES: Normal left common carotid artery (CCA). Normal left common carotid bulb. Normal origin of the left internal carotid (ICA) artery without a hemodynamically significant stenosis. Normal visualized cervical portion of the left internal carotid artery. Normal origin of the left external carotid artery (ECA). VERTEBRAL ARTERIES: Normal bilateral vertebral arteries. Left vertebral artery dominant. Possible mild nonspecific interstitial infiltrates. Slight anterior subluxation C4-[address] and [address]/STROKE CTA Head AND Neck W/Con IMPRESSION: Normal CTA Head and neck with contrast. Sensitivity limited without 3-D reformats. Mild nonspecific pulmonary interstitial infiltrates. Anterior subluxation C4-5 and degenerative disc disease. Electronically Signed: Piotr Scott MD at 20:01 EDT ,
--- NOTE | 2023-06-20 19:19 | EKG12_ITS ---
Test Reason : DYSRHYTHMIA Blood Pressure : / mmHG Vent. Rate : 070 BPM Atrial Rate : 070 BPM P-R Int : 202 ms QRS Dur : 144 ms QT Int : 468 ms P-R-T Axes : 040 -04 115 degrees QTc Int : 505 ms Normal sinus rhythm Left bundle branch block Abnormal ECG Confirmed by Yoshi Garcia ([id number]), primer expeditor and drier NOELLE MONTANEZ ([id number]) on 06/21/2023 11:13:40 AM Referred By: Confirmed By:Yoshi Garcia
--- NOTE | 2023-06-20 19:20 | EDS_ITS ---
HPI History of Present Illness Chief Complaint: Stroke Alert Informant: patient and family Onset/Context/Timing Onset: Today and - (Unknown onset of symptoms. Family has not seen her today.) Timing: Continuous Quality and Location: Positive for Slurred Speech and Expressive Aphasia Current Severity: Severe Maximum Severity: Severe Associated Symptoms Associated Symptoms: Positive for Headache; Negative for Vomiting or Chest Pain Narrative Narrative: 78-year-old female history of aortic prosthetic valve and A-fib on Coumadin. No prior stroke history. No family members seen today. Daughter called around 6:30 pm and she had extremely slurred and garbled speech on the phone. She was brought in by them immediately. Patient is unable to give any history due to the severe nature of her current speech. She denies any fall or trauma. She does have a headache. Prior similar symptoms: No Recent Illness/Hospitalization: Yes [facility] Medical History Aortic stenosis with bicuspid valve Ascending aortic aneurysm Atrial fibrillation Chronic pain Dementia Depression Esophageal reflux Essential hypertension GERD (gastroesophageal reflux disease) GI bleed Head injuries History of gout History of venous thrombosis and embolism Hyperparathyroidism Hypertension Hyperuricemia Hypothyroidism Kidney stones half-way current use of 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 Migraines Near syncope Paroxysmal atrial fibrillation Physical debility Seizure disorder Seizures Spinal stenosis Stage 4 chronic kidney disease Thoracic aortic aneurysm (TAA) Urine retention Home Medications allopurinol 100 mg tablet 100 mg PO DAILY GOUT #90 tabs 02/22/19 [History Last T aken 03/17/23] levothyroxine 100 mcg tablet 100 mcg PO DAILY THYROID #90 tabs 02/22/19 [History Last Taken 03/17/23] levetiracetam 1,000 mg tablet (Keppra) 1,000 mg PO BID EPILEPSY 06/06/21 [History Last Taken 03/17/23] rosuvastatin 20 mg tablet (Crestor) 20 mg PO DAILY CHOLESTEROL 06/06/21 [History Last Taken 03/17/23] oxcarbazepine 150 mg tablet 150 mg PO BID EPILESPSY 09/12/21 [History Last Taken 03/17/23] amlodipine 10 mg tablet 10 mg PO DAILY BLOOD PRESSURE 11/25/21 [History Last Taken 03/17/23] metoprolol succinate 25 mg tablet,extended release 24 hr 12.5 mg PO DAILY HEART #90 tabs 11/25/21 [History Last Taken 03/17/23] flecainide 100 mg tablet 50 mg PO BID HEART 12/09/21 [History Last Taken 03/17/23] memantine 10 mg tablet 10 mg PO BID MEMORY 02/22/23 [History Last Taken 03/17/23] vibegron 75 mg tablet (Gemtesa) 75 mg PO DAILY OVERACTIVE BLADDER 02/22/23 [History Last Taken 03/17/23] cholecalciferol (vitamin D3) 125 mcg (5,000 unit) capsule 125 mcg PO DAILY SUPPLEMENT 03/17/23 [History Last Taken 03/17/23] duloxetine 60 mg capsule,delayed release 60 mg PO DAILY DEPRESSION 03/17/23 [History Last Taken 03/17/23] metaxalone 400 mg tablet 400 mg PO BID MUSCLE SPASMS/PAIN 03/17/23 [History Last Taken 03/17/23] mirtazapine 7.5 mg tablet 3.75 - 7.5 mg PO QHS PRN DEPRESSON 03/17/23 [History Last Taken Unknown] nitroglycerin 0.4 mg sublingual tablet (Nitrostat) 0.4 mg sublingual Q5M PRN CHEST PAIN 03/17/23 [History Last Taken Unknown] nortriptyline 50 mg capsule 100 mg PO DAILY DEPRESSION 03/17/23 [History Last Taken 03/17/23] vitamin A 2,500 unit-vit C 100 mg-biotin 2,500 hoe-ppes-audlez capsule (Slhj-Fgwy-Cmfl (vit A,E-ihwgqm-Po-Cu)) 1 cap PO DAILY SUPPLEMENT 03/17/23 [History Last Taken 03/17/23] warfarin 4 mg tablet 4 mg PO DAILY BLOOD THINNER 03/17/23 [History Last Taken 03/17/23] hydrocodone-acetaminophen 5-325mg 5mg-325mg 1 tab PO BID PRN PAIN 03/26/23 [History Last Taken Unknown] famotidine 40 mg tablet 40 mg PO DAILY #90 tabs 04/01/23 [Rx Last Taken Unknown] Lactobacillus acidophilus 250 million cell capsule (Probiotic Acidophilus) 1,000 mmu cells PO DAILY 04/14/23 [History Last Taken Unknown] potassium chloride 20 mEq tablet,extended release(part/cryst) 20 meq PO BID 04/14/23 [History Last Taken Unknown] Allergy/AdvReac Type Severity Reaction Status Date / Time celecoxib [From Celebrex] Allergy Severe Hives, Verified 06/20/23 19:17 swelling, difficulty breathing Sulfa (Sulfonamide Allergy Severe Hives, Verified 06/20/23 19:17 Antibiotics) swelling, difficulty breathing gemfibrozil AdvReac Intermediate Nausea,myal Verified 06/20/23 19:17 gias Family History Mother CVA (cerebral vascular accident) Breast cancer Hypertension CAD (coronary artery disease) Father Hypertension CAD (coronary artery disease) Surgical History Fracture of ankle, bimalleolar, left, closed H/O chest tube placement (05/07/01) History of appendectomy History of bilateral breast reduction surgery (2008) History of left heart catheterization (12/07/15) History of loop recorder History of lumpectomy (2009) History of open reduction and internal fixation (ORIF) procedure (11/30/19) History of thumb surgery (2004) History of tilt table evaluation (05/21/16) History of total abdominal hysterectomy (1974) Hx of aortic valve replacement, mechanical (04/05/01) Hx of ascending aorta replacement (04/05/01) Social History household members: none housing: condominium Smoking Status: Never smoker alcohol intake: never substance use type: does not use ROS ROS ED ROS Narrative Slurred speech. Family denies recent illness. Review of Systems ROS Unobtainable: Denies due to encephalopathy Constitutional Constitutional ED: Denies chills or fever(s) Eyes Eyes: Denies blurry vision ENT ENT ED: Denies ear pain Cardiovascular Cardiovascular: Denies chest pain Respiratory/Chest Respiratory/Chest: Denies cough or dyspnea Gastrointestinal Gastrointestinal: Denies abdominal pain Genitourinary Genitourinary ED: Denies dysuria or hematuria Musculoskeletal Musculoskeletal: Denies arthralgias, back pain, myalgias or neck pain Integumentary Denies abscess or Abrasions Neurologic Neurologic: Reports headache(s) Psychiatric Psychiatric: Denies anxiety or depression Endocrine Endocrinology: Denies polydipsia or polyphagia Hematologic/Lymphatic Hematologic/Lymphatic: Reports easy bruising; Denies lymphadenopathy Allergic/Immunologic Allergic/Immunologic ED: Denies mouth swelling or urticaria EXAM Physical Exam Narrative Exam Narrative: 78-year-old female seen in triage stroke team was called. Vital signs are stable afebrile. Pulse ox 96% on room air no signs of hypoxia. H EENT exam dry reactive light. Extra motions are intact. No facial droop. Severely slurred speech and dysarthria. Neck nontender. Lungs clear to auscultation bilaterally. Heart regular rhythm rate about 90. Prosthetic heart valve click. Chest wall nontender. Abdomen soft nontender. Moving all 4 extremities. 5 out of 5 skilled laborer strength. Dorsi plantarflexion intact. Neurologically no facial droop. Severely slurred speech with dysarthria. No motor deficits of the arms or legs. No sensory loss. NIH is 2 due to the severity of her slurred speech. Const Vital Signs: 06/20/23 19:14 06/20/23 19:19 06/20/23 19:19 Temperature 98.0 F Temperature Source Temporal Pulse Rate 91 72 Respiratory Rate 18 16 Blood Pressure 123/75 H 179/71 H Blood Pressure Mean 91 107 Pulse Ox 96 97 Oxygen Delivery Method Room Air Room Air Room Air 06/20/23 19:34 06/20/23 19:35 Temperature Temperature Source Pulse Rate 71 72 Respiratory Rate 14 14 Blood Pressure 154/66 H 160/69 H Blood Pressure Mean 95 99 Pulse Ox 98 99 Oxygen Delivery Method Room Air Room Air Positive well nourished and well developed; Negative for obese, cachectic, contractures or unkempt General Appearance ED: well developed; Negative for unkempt, cachectic, contractures or NAD Nutritional Appearance: Negative for cachectic or obese HEENT Reports moist mucous membranes; Denies dry mucous membranes atraumatic; Negative for trauma Nose: Negative for other Mouth ED: No dry mucous membranes Mouth: No dry mucous membranes Eyes PERRL and EOMs intact bilaterally General Eye ED: Negative for pale conjunctiva, scleral icterus or other Neck no lymphadenopathy, supple and no JVD General: Negative for tenderness Thyroid: Negative for other Chest Wall inspection of chest normal and palpation of chest normal Chest: Negative for other Resp normal respiratory effort and clear to auscultation bilaterally Effort and Inspection: Negative for retractions Auscultation: Negative for rales, rhonchi or wheezes Cardio no murmurs Cardio Narrative: Prosthetic heart valve click. GI normal to inspection, nondistended, normoactive bowel sounds, soft to palpation, non-tender, non-distended and no masses Inspection: Negative for abdominal distention Auscultation: normoactive bowel sounds Palpation: Negative for tender, guarding or rebound tenderness present Back/Spine no CVA tenderness General Back: Negative for CVA tenderness or other Cervical Spine: Negative for cervical spine tenderness Thoracic Spine / Upper Back: Negative for thoracic spinal tenderness Lumbar Spine / Lower Back: Negative for lumbar spinal tenderness Extremity normal to inspection General Extremety ED: Negative for deformity, edema or tenderness General Extremity: Negative for deformity or edema Neuro oriented x3 Neuro Narrative: Severely slurred speech with dysarthria. Not able to understand anything she is going to tell us. Moving all 4 extremities. No motor loss. No loss of sensation. Sensorium / Orientation: alert Speech: Negative for speech normal Motor Exam: strength 5/5 throughout Psych mental status grossly normal Appearance: Negative for unkempt Attitude: No agitated Mood & Affect: Negative for depressed, anxious or tearful Attention / Concentration: Negative for other Skin no wounds General Skin Exam: Negative for jaundice Lesions: no lesions Rashes: no rashes Trauma: Negative for abrasion, laceration or puncture NIHSS NIHSS Initial: 1a Level of Consciousness: 0 1b LOC Questions (Score 2 if aphasic/stupor): 0 1c LOC Commands (Only score 1st attempt): 0 2 Best Gaze (If aphasic, use reflexive mvmts.): 0 3 Visual: 0 4 Facial Palsy: 0 5 Motor Arm Right (UN = amputation/fusion): 0 5 Motor Arm Left: 0 6 Motor Leg Right: 0 6 Motor Leg Left: 0 7 Limb ataxia (Only + if out of proportion): 0 8 Sensory (Aphasia/stupor=0 or 1, coma=2): 0 9 Best Language: 3 10 Dysarthria (mute, coma=2, intubated=UN): 2 11 Extinction and Inattention (only scored if +): 0 Total Score: 5 MDM MDM MDM Narrative Medical decision making narrative: 78-year-old on Coumadin for prosthetic valve and A-fib. Presents with strokelike symptoms. We made the stroke team. She is not a tenecteplase candidate due to one we have no idea when this started. Her last known well was yesterday at 7 PM Lucila more than 24 hours ago. Also she is on a blood thinner Coumadin. Repeat exam patient's motor function remains normal. Her speech is much improved. It is less slurred and you can understand what she is saying now. Her NIH now would be about a 1 and it was previously of 4-5. I discussed all test results with family. I spoken to the hospitalist Dr. Diamond Castillo. She will admit the patient to PCU. She is most likely can start a heparin drip on the patient due to her INR being normal currently. And the patient supposed to be on Coumadin. Due to both her A-fib and her prosthetic valve. Currently she is in a sinus rhythm. History & Record Review Discussion w/independent historian: Patient and Family Additional record(s) reviewed:: Prior inpatient record, Prior outpatient record, Prior ED visit, Prior labs and No prior records Lab Data Attestation: I reviewed the patient's lab results. Lab results narrative: CBC shows a white count of 10. H&H 12 and 38. Platelets 280. PT/INR 14 and 1. PTT of 24. Electrolytes show a gap of 7. BUN and creatinine are 33 and 1.55 consistent with her chronic renal insufficiency. Glucose 112. Troponin is 8. CAT scan of the brain and CTA of the head neck shows no acute abnormality. No bleed. No mass. No stroke or clot. Read by the radiologist and reviewed by me. Labs: Laboratory Results - last 24 hr 06/20/23 06/20/23 19:16 19:18 WBC 10.8 RBC 4.12 L Hgb 12.3 Hct 38.4 MCV 93.2 MCH 29.9 MCHC 32.0 RDW Std Deviation 46.2 H RDW Coeff of Pravin 13.7 Plt Count 280 MPV 8.8 Immature Gran % (Auto) 0.300 Neut % (Auto) 79.0 H Lymph % (Auto) 10.7 L Dane % (Auto) 8.0 Eos % (Auto) 1.5 Baso % (Auto) 0.5 Absolute Neuts (auto) 8.6 H Absolute Lymphs (auto) 1.16 Nucleated RBC % 0 PT 14.2 INR 1.1 APTT 24.4 Sodium 139 Potassium 4.1 Chloride 106 Carbon Dioxide 26.0 Anion Gap 7 BUN 33 H Creatinine 1.55 H Estim Creat Clear Calc 31.45 Est GFR (MDRD) Af Amer 41 L Est GFR (MDRD) Non-Af 34 L BUN/Creatinine Ratio 21.3 H Glucose 112 H Calcium 9.6 Troponin I High Sens 8 POC Glucose 105 Radiography Chest X-Ray - ED: 1 View, Read by ED Physician, Heart, Lungs, Mediastinum, Bony Structures, No Acute Disease and Chronic Changes Diagnostic Testing: Clinical Impression(s) from Imaging Studies Brain CT 06/20/23 19:19 IMPRESSION: Normal unenhanced CT scan of the brain. Electronically Signed: Piotr Scott MD at 19:41 EDT Reading Location ID and State: [employer] / [place] Tel , Service support , ADDENDUM: 06/20/231950 IMPRESSION: Normal unenhanced CT scan of the brain. N.B. : The above Results were Read Back by Piotr Scott MD to Kirk Menon MD, and understanding confirmed on 06/20/2023 19:44:39 (ET). Electronically Signed: Piotr Scott MD at 19:41 EDT Reading Location ID and State: [facility] [employer] [place] Tel , Service support , Head/Neck CTA 06/20/23 19:19 IMPRESSION: Normal CTA Head and neck with contrast. Sensitivity limited without 3-D reformats. Mild nonspecific pulmonary interstitial infiltrates. Anterior subluxation C4-5 and degenerative disc disease. Electronically Signed: Piotr Scott MD at 20:01 EDT Reading Location ID and State: [email or web address] / [place] Tel , Service support , ADDENDUM: 06/20/232010 IMPRESSION: Normal CTA Head and neck with contrast. Sensitivity limited without 3-D reformats. Mild nonspecific pulmonary interstitial infiltrates. Anterior subluxation C4-5 and degenerative disc disease. N.B. : The above Results were Read Back by Piotr Scott MD to Kirk Menon MD, and understanding confirmed on 06/20/2023 20:04:14 (ET). Electronically Signed: Piotr Scott MD at 20:01 EDT , Chest x-ray, portable, single view interpreted by myself shows no acute abnormality. Prior sternotomy with sternal wires. Normal cardiac silhouette and lung mar. Chronic changes. Rhythm Strip Rhythm Strip: Sinus Rhythm Rate: 70 Ectopy: None EKG Initial EKG: Attestation: I personally reviewed and interpreted this EKG as follows: Interpretation: Sinus Rhythm and No Acute Injury Pattern Comments: Normal sinus rhythm rate of 70 no acute signs of UT or ischemia. Left bundle branch block with a prior history of a left bundle branch block and unchanged from prior EKG from February. Discharge Plan Triage Chief Complaint: Stroke Alert ED Provider: Kirk Menon Dx/Rx/DC Orders Clinical Impression: History of prosthetic heart valve, Slurred speech, Brain TIA, Subtherapeutic anticoagulation, History of atrial fibrillation Prescriptions: No Action allopurinol 100 mg tablet 100 mg PO DAILY Qty: 90 levothyroxine 100 mcg tablet 100 mcg PO DAILY Qty: 90 levetiracetam [Keppra] 1,000 mg tablet 1,000 mg PO BID rosuvastatin [Crestor] 20 mg tablet 20 mg PO DAILY amlodipine 10 mg tablet 10 mg PO DAILY oxcarbazepine 150 mg tablet 150 mg PO BID hydrocodone-acetaminophen 5-325 mg tablet 1 tab PO BID PRN (Reason: PAIN ) Patient Comments: PT STATES TAKES NEEDED (03-18-23) metoprolol succinate 25 mg tablet extended release 24 hr 12.5 mg PO DAILY Qty: 90 Probiotic Acidophilus 250 million cell capsule 1,000 mmu cells PO DAILY potassium chloride 20 mEq tablet,ER particles/crystals 20 meq PO BID Gemtesa 75 mg tablet 75 mg PO DAILY memantine 10 mg tablet 10 mg PO BID nortriptyline 50 mg capsule 100 mg PO DAILY mirtazapine 7.5 mg tablet 3.75 - 7.5 mg PO QHS PRN (Reason: DEPRESSON ) Patient Comments: PT STATES WILL BE TAKING AFTER SLEEP STUDY WHICH IS 03/31/23 metaxalone 400 mg tablet 400 mg PO BID duloxetine 60 mg capsule,delayed release(DR/EC) 60 mg PO DAILY cholecalciferol (vitamin D3) 125 mcg (5,000 unit) capsule 125 mcg PO DAILY warfarin 4 mg tablet 4 mg PO DAILY Protocol: Dose Management Condition: Wednesday Dose/Route: 4 mg Instruction: 1 x 4 mg tablet Condition: Wednesday Dose/Route: 4 mg Instruction: 1 x 4 mg tablet Condition: Wednesday Dose/Route: 4 mg Instruction: 1 x 4 mg tablet Condition: Wednesday Dose/Route: 4 mg Instruction: 1 x 4 mg tablet Condition: Dose/Route: 4 mg Instruction: 1 x 4 mg tablet Condition: Wednesday Dose/Route: 6 mg Instruction: 1.5 x 4 mg tablets Condition: Wednesday Dose/Route: 4 mg Instruction: 1 x 4 mg tablet Protocol Text: Adjustment Start Date: Wednesday06/11/23 INR Value: 2.6 INR Date: 06/10/23 Recheck Date: 06/25/23 nitroglycerin [Nitrostat] 0.4 mg tablet, sublingual 0.4 mg sublingual Q5M PRN (Reason: CHEST PAIN ) Rx Instructions: do not exceed 3 doses per episode Wdrq-Yqzj-Clpj(vit A,C-biotin) 2,500 unit-100 mg-2,500 mcg capsule 1 cap PO DAILY flecainide 100 mg tablet 50 mg PO BID famotidine 40 mg tablet 40 mg PO DAILY Qty: 90 3RF Primary Care Provider: Kishore Ricci Referrals: Kishore Ricci MD [Primary Care Provider] - Disposition Disposition: Acute Care Hospital [facility]
[2023-06-20 19:26] LABS: Absolute Lymphocyte Count 1.16 X10^3/uL (0.83-4.51); Absolute Neutrophil Count 8.6 X10^3/uL (2.0-7.7); Basophil# 0.05 X10^3/uL; Basophil% 0.5 % (0-1); Eosinophil# 0.16 X10^3/uL; Eosinophils% 1.5 % (0-5); Hematocrit 38.4 % (37-47); Hemoglobin 12.3 g/dL (12.0-15.0); Lymphocyte # 1.16 X10^3/ul (0.83-4.51); Lymphocyte % 10.7 % (19-41); Mean Corpuscular Hgb 29.9 pg (27.0-32.0); Mean Corpuscular Volume 93.2 fL (81-99); Mean Platelet Vol. 8.8 fl (6.2-12.0); Monocyte# 0.87 X10^3/uL; NRBC Flagged by Analyzer 0 % (0-5); Neutrophil # 8.57 X10^3/uL (2.7-7.7); Platelet Count 280 K/mm3 (150-450); RBC Distribution Width CV 13.7 % (11.6-14.6); RBC Distribution Width SD 46.2 fl (35.1-43.9); Red Blood Count 4.12 M/mm3 (4.2-5.4); White Blood Count 10.8 K/mm3 (4.4-11.0)
[2023-06-20 19:34] LABS: International Normalized Ratio 1.1; Partial Thromboplast Time 24.4 Seconds (24.1-36.2); Prothrombin Time (Protime)PT. 14.2 SECONDS (11.7-14.9)
[2023-06-20 19:36] LABS: Bedside Glucose 105 mg/dL (74-106)
[2023-06-20 19:43] LABS: Anion Gap 7 (5-15); BUN 33 mg/dL (7-18); BUN/Creat Ratio 21.3 RATIO (10-20); Calcium,Total 9.6 mg/dL (8.5-10.1); Chloride 106 mmol/L (98-107); Creatinine, Serum 1.55 mg/dL (0.55-1.02); EST Glomerular Filtration Rate 34 mL/min (>60); Est Glom Filt Rate - Afr Amer 41 mL/min (>60); Estimated Creatinine Clearance 31.45 ml/min; Glucose 112 mg/dL (74-106); Potassium 4.1 mmol/L (3.5-5.1); Sodium Level 139 mmol/L (136-145); Troponin-I HS 8 pg/mL (3.0-54.0)
--- NOTE | 2023-06-20 20:00 | RAD_ITS ---
STUDY: X-RAY CHEST REASON FOR EXAM: Female, 78 years old. Neuro deficit, acute, stroke suspected TECHNIQUE: Single frontal view of the chest. COMPARISON: None. FINDINGS: Sternotomy wires and prosthetic heart valve. The lungs are clear and expanded. There is no demonstrated pleural abnormality. Normal size heart. Normal mediastinum and talha. Normal visualized pulmonary arteries. Normal visualized aortic arch and descending thoracic aorta. Normal visualized thoracic spine. Normal visualized ribs, clavicles, and shoulders. There is no demonstrated abnormality of the visualized soft tissue structures of the upper abdomen. RAD/Chest 1 View IMPRESSION: No acute disease Electronically Signed: Piotr Scott MD at 21:21 EDT ,
--- NOTE | 2023-06-20 20:19 | HP.PCM.HOS_ITS ---
HPI - General General Date of Admission: 06/20/23 Date of Service: 06/20/23 Chief Complaint: Slurred speech, expressive aphasia, unclear onset timeline. 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 Family last reports seeing your at 7 PM the day prior and she was at her normal baseline at that time. In the ED patient per ED physician with improvement of her speech as initially was unable to be understood at all. Workup in the ED included T98, heart rate 91, BP 123/75, respiratory rate 18, 96% on room air with most recent repeat vitals heart rate 72, BP 160/69, respiratory rate 14, 99% on room air, CBC with WBC 10.8, human 12.3, MCV 93.2, platelet 280 with left shift, unremarkable coags, BMP with BUN/creatinine 33/1.55, GFR 34, glucose 112, troponin 8, CT the brain with no acute intracranial findings, CTA head and neck normal, mild nonspecific pulmonary interstitial infiltrates, anterior subluxation C4-5 and generative disc disease, chest x-ray without acute findings, EKG SR with LBBB with no acute evidence of ischemia. In the ED patient NIH score 2 secondary to severity of slurred speech with dysarthria however follow-up NIH stroke score charted per ED physician with 3 for best language and 2 for dysarthria with a score of 5. Stroke alert was called and patient was not considered a tenecteplase candidate given unclear onset of symptoms in addition to the fact that she is on Coumadin for mechanical valve although her INR is subtherapeutic. [facility] Medical History Aortic stenosis with bicuspid valve Ascending aortic aneurysm Atrial fibrillation Chronic pain Dementia Depression Esophageal reflux Essential hypertension GERD (gastroesophageal reflux disease) GI bleed Head injuries History of gout History of venous thrombosis and embolism Hyperparathyroidism Hypertension Hyperuricemia Hypothyroidism Kidney stones custodial current use of 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 Migraines Near syncope Paroxysmal atrial fibrillation Physical debility Seizure disorder Seizures Spinal stenosis Stage 4 chronic kidney disease Thoracic aortic aneurysm (TAA) Urine retention Home Medications allopurinol 100 mg tablet 100 mg PO DAILY GOUT #90 tabs 02/22/19 [History Last Taken 03/17/23] levothyroxine 100 mcg tablet 100 mcg PO DAILY THYROID #90 tabs 02/22/19 [History Last Taken 03/17/23] levetiracetam 1,000 mg tablet (Keppra) 1,000 mg PO BID EPILEPSY 06/06/21 [History Last Taken 03/17/23] rosuvastatin 20 mg tablet (Crestor) 20 mg PO DAILY CHOLESTEROL 06/06/21 [History Last Taken 03/17/23] oxcarbazepine 150 mg tablet 150 mg PO BID EPILESPSY 09/12/21 [History Last Taken 03/17/23] amlodipine 10 mg tablet 10 mg PO DAILY BLOOD PRESSURE 11/25/21 [History Last Taken 03/17/23] metoprolol succinate 25 mg tablet,extended release 24 hr 12.5 mg PO DAILY HEART #90 tabs 11/25/21 [History Last Taken 03/17/23] flecainide 100 mg tablet 50 mg PO BID HEART 12/09/21 [History Last Taken 06/05] memantine 10 mg tablet 10 mg PO BID MEMORY 02/22/23 [History Last Taken 03/17/23] vibegron 75 mg tablet (Gemtesa) 75 mg PO DAILY OVERACTIVE BLADDER 02/22/23 [History Last Taken 03/17/23] cholecalciferol (vitamin D3) 125 mcg (5,000 unit) capsule 125 mcg PO DAILY SUPPLEMENT 03/17/23 [History Last Taken 03/17/23] duloxetine 60 mg capsule,delayed release 60 mg PO DAILY DEPRESSION 03/17/23 [History Last Taken 03/17/23] metaxalone 400 mg tablet 400 mg PO BID MUSCLE SPASMS/PAIN 03/17/23 [History Last Taken 03/17/23] mirtazapine 7.5 mg tablet 3.75 - 7.5 mg PO QHS PRN DEPRESSON 03/17/23 [History Last Taken Unknown] nitroglycerin 0.4 mg sublingual tablet (Nitrostat) 0.4 mg sublingual Q5M PRN ANICETO ST PAIN 03/17/23 [History Last Taken Unknown] nortriptyline 50 mg capsule 100 mg PO DAILY DEPRESSION 03/17/23 [History Last Taken 03/17/23] vitamin A 2,500 unit-vit C 100 mg-biotin 2,500 lyo-jkze-avewjd capsule (Mmsw-Motb-Netv (vit A,S-qtfxbn-Xv-Cu)) 1 cap PO DAILY SUPPLEMENT 03/17/23 [History Last Taken 03/17/23] warfarin 4 mg tablet 4 mg PO DAILY BLOOD THINNER 03/17/23 [History Last Taken 03/17/23] hydrocodone-acetaminophen 5-325mg 5mg-325mg 1 tab PO BID PRN PAIN 03/26/23 [History Last Taken Unknown] famotidine 40 mg tablet 40 mg PO DAILY #90 tabs 04/01/23 [Rx Last Taken Unknown] Lactobacillus acidophilus 250 million cell capsule (Probiotic Acidophilus) 1,000 mmu cells PO DAILY 04/14/23 [History Last Taken Unknown] potassium chloride 20 mEq tablet,extended release(part/cryst) 20 meq PO BID 04/14/23 [History Last Taken Unknown] Allergy/AdvReac Type Severity Reaction Status Date / Time celecoxib [From Celebrex] Allergy Severe Hives, Verified 06/20/23 19:17 swelling, difficulty breathing Sulfa (Sulfonamide Allergy Severe Hives, Verified 06/20/23 19:17 Antibiotics) swelling, difficulty breathing gemfibrozil AdvReac Intermediate Nausea,myal Verified 06/20/23 19:17 gias Family History Mother CVA (cerebral vascular accident) Breast cancer Hypertension CAD (coronary artery disease) Father Hypertension CAD (coronary artery disease) Surgical History Fracture of ankle, bimalleolar, left, closed H/O chest tube placement (05/07/01) History of appendectomy History of bilateral breast reduction surgery (2008) History of left heart catheterization (12/07/15) History of loop recorder History of lumpectomy (2009) History of open reduction and internal fixation (ORIF) procedure (11/30/19) History of thumb surgery (2004) History of tilt table evaluation (05/21/16) History of total abdominal hysterectomy (1974) Hx of aortic valve replacement, mechanical (04/05/01) Hx of ascending aorta replacement (04/05/01) Social History household members: none housing: [facility] Smoking Status: Never smoker alcohol intake: never substance use type: does not use ROS ROS Narrative Admission Review of Systems: CONSTITUTIONAL: No weight loss, fever, chills, + weakness or fatigue. HEENT: + Headache. Eyes: No visual loss, blurred vision, double vision or yellow sclerae. Ears, Nose, Throat: No hearing loss, sneezing, congestion, runny nose or sore throat. SKIN: No rash or itching, lesions, wounds. CARDIOVASCULAR: No chest pain, chest pressure or chest discomfort, palpitations, edema, orthopnea, syncopal events. RESPIRATORY: No shortness of breath, cough or sputum, wheezing, hemoptysis. GASTROINTESTINAL: No anorexia, nausea, vomiting or diarrhea, abdominal pain, melena, BRBPR. GENITOURINARY: No dysuria, frequency, urgency or retention. NEUROLOGICAL: + Expressive aphasia, slurred speech, headache, seizure disorder. No dizziness, syncope, paralysis, ataxia, numbness or tingling in the extremities, focal weakness, change in bowel or bladder control. MUSCULOSKELETAL: No muscle, back pain, joint pain or stiffness. HEMATOLOGIC: + Chronic anemia, easy bleeding/bruising. LYMPHATICS: No enlarged nodes. No history of splenectomy. PSYCHIATRIC: + History of anxiety and depression. ENDOCRINOLOGIC: No reports of sweating, cold or heat intolerance. No polyuria or polydipsia. ALLERGIES: + History of hives. Vital Signs Vital Signs Vital Signs: 06/20/23 19:14 06/20/23 19:19 06/20/23 19:19 Temperature 98.0 F Temperature Source Temporal Pulse Rate 91 72 Respiratory Rate 18 16 Blood Pressure 123/75 H 179/71 H Blood Pressure Mean 91 107 Pulse Ox 96 97 Oxygen Delivery Method Room Air Room Air Room Air 06/20/23 19:34 06/20/23 19:35 Temperature Temperature Source Pulse Rate 71 72 Respiratory Rate 14 14 Blood Pressure 154/66 H 160/69 H Blood Pressure Mean 95 99 Pulse Ox 98 99 Oxygen Delivery Method Room Air Room Air Weight Weight: 198 lb 6.656 oz Body Mass Index (BMI) 34.0 Physical Exam Narrative Physical Examination: General: Awake, alert, oriented to self, place and recent events but is having still significant difficulty with expressive aphasia, dysarthria improving, patient and family do feel as though she has made improvement since initial ED arrival, cooperative, seated upright in bed in no apparent distress. Skin: Normal color, normal turgor, no icterus, no cyanosis. HEENT: AT/NC, EOMI, PERRLA, MMM, no carotid bruits or JVD noted. Lungs: CTA bilaterally, moderate effort, mild decrease BL bases, no rales, ronchi or wheezing. Heart: Regular rate and rhythm; no gallop, rub audible, + click. Abdomen: Soft, obese, NTTP, ND, distant normal BS, no appreciated HSM. Extremities: No cyanosis, clubbing, or edema. Neurological: Patient awake, alert, oriented as noted, cognitive function intact aside from obvious deficits as noted; pupils equally reactive to light and accommodation, cranial nerves grosslynormal, moving all 4 extremities, no focal deficits, strength preserved, finger-nose and tohy-yr-aygr appropriate, sensation intact, ongoing expressive aphasia and dysarthria evident although family and patient as well as ED physician note improved since initial ED ar rival. Psychiatric: Affect appears normal, no acute evidence of depressive or anxiety feelings but does have underlying history. Results Lab / Micro Data 06/20/23 19:18 06/20/23 19:18 Labs: Laboratory Results - last 24 hr 06/20/23 19:16: POC Glucose 105 06/20/23 19:18: WBC 10.8, RBC 4.12 L, Hgb 12.3, Hct 38.4, MCV 93.2, MCH 29.9, MCHC 32.0, RDW Std Deviation 46.2 H, RDW Coeff of Pravin 13.7, Plt Count 280, MPV 8.8, Immature Gran % (Auto) 0.300, Neut % (Auto) 79.0 H, Lymph % (Auto) 10.7 L, Hodgeman % (Auto) 8.0, Eos % (Auto) 1.5, Baso % (Auto) 0.5, Absolute Neuts (auto) 8.6 H, Absolute Lymphs (auto) 1.16, Nucleated RBC % 0, PT 14.2, INR 1.1, APTT 24.4, Sodium 139, Potassium 4.1, Chloride 106, Carbon Dioxide 26.0, Anion Gap 7, BUN 33 H, Creatinine 1.55 H, Estim Creat Clear Calc 31.45, Est GFR (MDRD) Af Amer 41 L, Est GFR (MDRD) Non-Af 34 L, BUN/Creatinine Ratio 21.3 H, Glucose 112 H, Calcium 9.6, Troponin I High Sens 8 Imaging Radiology Impression Brain CT 06/20/23 19:19 IMPRESSION: Normal unenhanced CT scan of the brain. Electronically Signed: Piotr Scott MD at 19:41 EDT Reading Location ID and State: [address] [place] [address] Tel , Service support , ADDENDUM: 06/20/231950 IMPRESSION: Normal unenhanced CT scan of the brain. N.B. : The above Results were Read Back by Piotr Scott MD to Kirk Menon MD, and understanding confirmed on 06/20/2023 19:44:39 (ET). Electronically Signed: Piotr Scott MD at 19:41 EDT Reading Location ID and State: [address] [place] [address] Tel , Service support , Head/Neck CTA 06/20/23 19:19 IMPRESSION: Normal CTA Head and neck with contrast. Sensitivity limited without 3-D reformats. Mild nonspecific pulmonary interstitial infiltrates. Anterior subluxation C4-5 and degenerative disc disease. Electronically Signed: Piotr Scott MD at 20:01 EDT Reading Location ID and State: [address] [place] [address] Tel , Service support , ADDENDUM: 06/20/232010 IMPRESSION: Normal CTA Head and neck with contrast. Sensitivity limited without 3-D reformats. Mild nonspecific pulmonary interstitial infiltrates. Anterior subluxation C4-5 and degenerative disc disease. N.B. : The above Results were Read Back by Piotr Scott MD to Kirk Menon MD, and understanding confirmed on 06/20/2023 20:04:14 (ET). Electronically Signed: Piotr Scott MD at 20:01 EDT Reading Location ID and State: [facility] / [place] Tel , Service support , Assessment & Plan Assessment/Plan (1) CVA (cerebral vascular accident): PLAN: Plan The patient is an 78 y/o F w/ PMHx: Dementia unclear type with unclear behavioral disturbance history, Anxiety and Depression, Valvular heart Disease, Ascending aortic aneurysm status postsurgical intervention, HTN, HLD, GERD w/ Hx GI bleed, Hx VTE, Hypothyroidism, PAF, Chronic migraines, Chronic Kidney Disease Stage IV per chart documentation; however, per GFR trending more consistent with CKD stage III unclear subtype, Obesity, Hx C. difficile carrier, Neuroendocrine tumor, Seizure disorder who presents to the [facility] ED on 06/20/23 with history of slurred speech and expressive aphasia with recent history of headache with daughter calling her at approximately 6:30 PM with noted speech difficulties at that time unfortunately unclear onset timeline brought in immediately per family with no history reportedly of fall or trauma but again family is not seen her on day of current presentation prompting immediate ED evaluation. #1. Dysarthria, expressive aphasia concerning for TIA/CVA: Will admit to PCU, will obtain repeat CT head in ~ 24 hours given unable to obtain MRI brain, ECHO, PT/OT/Speech/Nutrition evaluation per protocol. Will allow permissive HTN, maintain on asa, heparin drip being started as noted given INR subtherapeutic with overlapping coumadin, statin w/ AM FLP, fall precautions. Mag, TSH, FLP, HgbA1c requested. Maintain on fall and aspiration precautions. Continue Neurology consultation. If MRI brain without acute findings given seizure history may then need to consider EEG and further evaluation for seizure as possible etiology. #2. Hypertension: Will maintain permissive hypertension per stroke protocol with as needed agents per stroke order stat and resume home regimen once clinically appropriate. #3. Valvular heart disease: Status post aortic valve mechanical replacement 04/05/2001, presentation INR subtherapeutic 1.1, will initiate on heparin drip and continue Coumadin overlapping until appropriate. #4. History ascending aortic aneurysm: Per history status post ascending aortic replacement, unclear specific surgical interventions, from review of records in [facility] no recent chest imaging noted, encourage continued outpatient follow-up with vascular/CT as previously arranged. #5. Chronic Kidney Disease Stage IV per chart documentation; however, per GFR trending more consistent with CKD stage III unclear subtype: Admission BUN/Cr 33/1.55, GFR 34 with trending noted to be 30-43 the last year nearly, baseline renal function 1.2-1.6 primarily, most recent prior to this 04/19/2023 creatinine 1.27, repeat BMP in AM. #6. Neuroendocrine tumor: Patient with noted duodenum with a 2 cm polypoid lesion diagnosed eventually with a low-grade neuroendocrine tumor with family electing observation at this time, planned outpatient follow-up endoscopy in 3 [address] Espinoza, following also with Oncology Dr. Kumari with last evaluation note 04/14/23. #7. History of VTE: Patient upon presentation with subtherapeutic INR complicated by underlying mechanical valve history, as noted will continue Coumadin with overlapping heparin drip until INR therapeutic with INR trending continuation. #8. PAF: We will continue patient home flecainide and Coumadin however INR subtherapeutic thus we will overlap with heparin drip at this time and continue to trend. Temporarily holding metoprolol for permissive HTN. #9. Hypothyroidism: We will continue patient home levothyroxine regimen, TSH and free T4 requested #10. Dementia, unclear type with unclear behavioral disturbance history: Complicates presentation, continue patient home memantine regimen, PT/OT/case management consulted for discharge planning. #11. Anxiety and depression: We will continue patient home duloxetine, nortriptyline and mirtazapine regimen. #12. Seizure disorder: We will continue patient home Keppra as well as oxcarbazepine regimen. #13. Hyperlipidemia: Continue home statin regimen. AM FLP. #14. Obesity: Weight loss and lifestyle changes encouraged. #15. Gout: We will continue patient on allopurinol regimen. #16. GERD with Hx GI bleed w/ history of esophagitis, duodenal ulcers: Clarifying but from most recent GI note 06/10/2023 was restarted on omeprazole, previously been on famotidine which did not been working. Patient with most recent EGD per Dr. Espinoza with evidence of reflux esophagitis and duodenal ulcers with no signs of any bleeding. #17. DVT prophylaxis: As noted subtherapeutic INR upon presentation with mechanical valve, will initiate heparin drip and will overlap with Coumadin with INR trending until therapeutic. #18. CODE status: Patient JOHN is her eldest daughter Dina who is present and living will is currently in place. Discussed CODE status at length including difference between FULL code, DNR-CCA and DNR-CC status. Following discussions about the differences in these status, requested DNR-CCA, no intubation status. Advanced Care Planning Face to Face Time: 16 minutes. Charges/Coding Visit Charges Inpatient E&M: 87063 Init Hosp L3 Procedures Hospitalists Procedures: 60226 Advncd Care Plan 30 Min
[2023-06-20 21:36] LABS: Magnesium 1.9 mg/dL (1.6-2.6)
--- NOTE | 2023-06-20 21:38 | ECHOD_ITS ---
Reason For Study: CVA Procedure This was a 2D Doppler, Color Flow transthoracic echocardiogram. Exam performed portable in patient room. Left Ventricle Normal LV size. The estimated ejection fraction is 55 %. Unable to assess diastolic dysfunction. No regional wall motion abnormalities noted. Right Ventricle Normal RV size. Normal systolic function. Atria The left atrium is mildly enlarged. Normal right atrium. No doppler evidence for ASD. Mitral Valve There is severe mitral annular calcification. There is no mitral valve stenosis. Trivial mitral valve insufficiency. Tricuspid Valve There is no tricuspid stenosis. Trivial tricuspid valve insufficiency. Unable to estimate RV systolic pressure due to insufficient tricuspid regurgitant envelope. Aortic Valve There is no aortic stenosis. No aortic valve insufficiency. Normal prosthetic aortic valve. Pulmonic Valve There is no pulmonic valvular stenosis. No pulmonic valve insufficiency. Great Vessels Normal aortic root. Pericardium/Pleural No pericardial effusion. MMode/2D Measurements & Calculations LVIDd: 5.3 cm IVSd: 1.3 cm LVOT diam: 1.9 cm LVIDs: 4.0 cm LVPWd: 1.3 cm LVOT area: 2.7 cm2 FS: 24.0 % Ao root diam: 3.2 cm LAV(MOD-sp2): 49.3 ml LA dimension(2D): 4.6 cm Time Measurements MV dec time: 0.23 sec Doppler Measurements & Calculations MV E max joey: 50.7 cm/sec Lat Peak E' Joey: 4.7 cm/sec Med Peak E' Joey: 5.3 cm/sec MV A max joey: 65.1 cm/sec E/E' lat: 10.7 E/E' med: 9.5 MV E/A: 0.78 MV V2 max: 74.1 cm/sec Ao V2 max: 185.8 cm/sec MV max P.2 mmHg MV dec slope: 226.6 cm/sec2 Ao max P.8 mmHg MV V2 mean: 48.3 cm/sec Ao V2 mean: 137.2 cm/sec MV mean P.0 mmHg Ao mean P.1 mmHg MV V2 VTI: 18.8 cm Ao V2 VTI: 37.1 cm AV (velocity ratio): 0.62 MVA(VTI): 3.3 cm2 NAVJOT(I,D): 1.7 cm2 NAVJOT(V,D): 1.4 cm2 LV V1 max: 96.3 cm/sec SV(LVOT): 61.6 ml PA V2 max: 91.1 cm/sec LV V1 max P.7 mmHg PA V2 mean: 70.9 cm/sec LV V1 mean P.1 mmHg LV V1 mean: 63.8 cm/sec LV V1 VTI: 22.8 cm ECHO/Echo Complete Interpretation Summary The estimated ejection fraction is 55 %. Unable to assess diastolic dysfunction. The left atrium is mildly enlarged. Trivial mitral valve insufficiency. Ordering Physician: Diamond Castillo Referring Physician: Kishore Ricci Performed By: Ce Reyna RCS
[2023-06-20 22:06] LABS: International Normalized Ratio 1.2
[2023-06-20 22:07] LABS: Partial Thromboplast Time 24.8 Seconds (24.1-36.2)
[2023-06-20] MEDS: HEPARIN/D5w 25,000 UNITS 25,000 UNITS/250 ML IV.SOLN. 12 UNITS CONT INF (22:46)
[2023-06-20] MEDS: Heparin Injection (Vial) 5,000 UNIT/ML VIAL 6000 UNIT IV (22:49)
[2023-06-20] MEDS: 0.9% Normal Saline (1000mL) 1,000 ML 100 ML IV (22:50)
[2023-06-20] MEDS: Flecainide 100 MG Tablet 50 MG PO (23:17)
[2023-06-20] MEDS: Potassium Chloride Oral Tablet 20 MEQ PO (23:17)
[2023-06-20] MEDS: levETIRAcetam 1,000 MG Tablet 1000 MG PO (23:18)
[2023-06-20] MEDS: Atorvastatin Calcium 40 MG Tablet PO (23:18)
[2023-06-20] MEDS: Memantine Hydrochloride 10 MG Tablet PO (23:18)
[2023-06-20] MEDS: Pantoprazole Sodium 40 MG Tablet PO (23:18)
[2023-06-20] MEDS: OXcarbazepine 150 MG Tablet PO (23:18)
[2023-06-20] MEDS: Menthol/Lanolin/Calamine/Znox 113 GM Tube 1 APPLIC TOPICAL (23:18)
[2023-06-21] VITALS (10 sets, daily range): BP systolic 123–150; BP diastolic 60–76; PULSE 66–89; RESP 16; TEMP 36.1–36.4; O2SAT 96–98; BMI 38.9
[2023-06-21 04:56] LABS: Absolute Lymphocyte Count 0.71 X10^3/uL (0.83-4.51); Absolute Neutrophil Count 5.7 X10^3/uL (2.0-7.7); Basophil# 0.04 X10^3/uL; Basophil% 0.6 % (0-1); Eosinophil# 0.17 X10^3/uL; Eosinophils% 2.4 % (0-5); Hemoglobin 10.6 g/dL (12.0-15.0); Lymphocyte # 0.71 X10^3/ul (0.83-4.51); Lymphocyte % 9.9 % (19-41); Mean Corp Hgb Conc 32.1 g/dL (32-36); Mean Corpuscular Volume 93.5 fL (81-99); Mean Platelet Vol. 8.6 fl (6.2-12.0); Monocyte# 0.58 X10^3/uL; Monocyte% 8.1 % (0-10); NRBC Flagged by Analyzer 0 % (0-5); Neutrophil # 5.68 X10^3/uL (2.7-7.7); Neutrophil % 78.7 % (47-70); Platelet Count 211 K/mm3 (150-450); RBC Distribution Width CV 13.6 % (11.6-14.6); RBC Distribution Width SD 46.2 fl (35.1-43.9); Red Blood Count 3.53 M/mm3 (4.2-5.4); White Blood Count 7.2 K/mm3 (4.4-11.0)
[2023-06-21 05:24] LABS: ALB/GLOB Ratio 1.1 RATIO (0.9-2.4); AST(SGOT) 13 U/L (15-37); Alanine Aminotransfer ALT/SGPT 23 U/L (13-56); Albumin, Serum 3.2 g/dL (3.2-5.0); Alkaline Phosphatase 79 U/L (45-117); Anion Gap 4 (5-15); BUN 23 mg/dL (7-18); Calcium,Total 8.7 mg/dL (8.5-10.1); Chloride 109 mmol/L (98-107); Cholesterol 267 mg/dL (200); Creatinine, Serum 1.21 mg/dL (0.55-1.02); EST Glomerular Filtration Rate 46 mL/min (>60); Est Glom Filt Rate - Afr Amer 55 mL/min (>60); Estimated Creatinine Clearance 43.35 ml/min; Globulin 2.9 g/dL (2.2-4.2); Glucose 93 mg/dL (74-106); High Density Lipoprotein 74 mg/dL; Potassium 3.6 mmol/L (3.5-5.1); Protein, Total 6.1 g/dL (6.4-8.2); Sodium Level 139 mmol/L (136-145); T4 Free Direct 1.05 ng/dL (0.76-1.46); Thyroid Stim Hormone (TSH) 3.02 uIU/mL (0.358-3.74); Triglycerides 75 mg/dL; Very Low Density Lipoprotein 15 mg/dL (5-40)
[2023-06-21 05:47] LABS: Partial Thromboplast Time 233.5 Seconds (24.1-36.2)
[2023-06-21 05:49] LABS: International Normalized Ratio 1.4
[2023-06-21] MEDS: Levothyroxine 100 MCG Tablet PO (06:25)
[2023-06-21 07:56] LABS: Hemoglobin A1c 4.9 % (3.8-5.6)
--- NOTE | 2023-06-21 07:58 | PCM.PN.HOSP ---
Reason for Visit Reason for Visit: Diagnoses Cerebral infarction, unspecified (06/20/23) Objective Data Objective Data Vital Signs: Vital Signs Temp Pulse Resp BP Pulse Ox O2 Del Method 97.3 F L 66 16 146/69 H 97 Room Air 06/21/23 07:31 06/21/23 07:31 06/21/23 07:31 06/21/23 07:31 06/21/23 07:31 06/21/23 07:31 Oxygen Delivery Method Room Air Weight: 227 lb 4.745 oz Body Mass Index (BMI) 38.9 Intake & Output: Intake and Output for Last 24 Hours 06/19/23 06/20/23 06/21/23 23:59 23:59 23:59 Intake Total 586 / 586 Balance 586 / 586 Lab / Micro Data 06/21/23 04:40 06/21/23 04:40 Labs: Laboratory Results - last 24 hr 06/20/23 19:16: POC Glucose 105 06/20/23 19:18: WBC 10.8, RBC 4.12 L, Hgb 12.3, Hct 38.4, MCV 93.2, MCH 29.9, MCHC 32.0, RDW Std Deviation 46.2 H, RDW Coeff of Pravin 13.7, Plt Count 280, MPV 8.8, Immature Gran % (Auto) 0.300, Neut % (Auto) 79.0 H, Lymph % (Auto) 10.7 L, [place] % (Auto) 8.0, Eos % (Auto) 1.5, Baso % (Auto) 0.5, Absolute Neuts (auto) 8.6 H, Absolute Lymphs (auto) 1.16, Nucleated RBC % 0, PT 14.2, INR 1.1, APTT 24.4, Sodium 139, Potassium 4.1, Chloride 106, Carbon Dioxide 26.0, Anion Gap 7, BUN 33 H, Creatinine 1.55 H, Estim Creat Clear Calc 31.45, Est GFR (MDRD) Af Amer 41 L, Est GFR (MDRD) Non-Af 34 L, BUN/Creatinine Ratio 21.3 H, Glucose 112 H, Calcium 9.6, Troponin I High Sens 8 06/20/23 21:08: PT 15.0 H 06/20/23 21:08: INR 1.2 06/20/23 21:08: APTT 24.8, Magnesium 1.9 06/21/23 04:40: WBC 7.2, RBC 3.53 L, Hgb 10.6 L, Hct 33.0 L, MCV 93.5, MCH 30.0, MCHC 32.1, RDW Std Deviation 46.2 H, RDW Coeff of Pravin 13.6, Plt Count 211, MPV 8.6, Immature Gran % (Auto) 0.300, Neut % (Auto) 78.7 H, Lymph % (Auto) 9.9 L, [place] % (Auto) 8.1, Eos % (Auto) 2.4, Baso % (Auto) 0.6, Absolute Neuts (auto) 5.7, Absolute Lymphs (auto) 0.71 L, Nucleated RBC % 0, PT 17.0 H, INR 1.4, APTT 233.5 H*, Sodium 139, Potassium 3.6, Chloride 109 H, Carbon Dioxide 26.0, Anion Gap 4 L, BUN 23 H, Creatinine 1.21 H, Estim Creat Clear Calc 43.35, Est GFR (MDRD) Af Amer 55 L, Est GFR (MDRD) Non-Af 46 L, BUN/Creatinine Ratio 19.0, Glucose 93, Hemoglobin A1c 4.9, Calcium 8.7, Total Bilirubin 0.50, AST 13 L, ALT 23, Alkaline Phosphatase 79, Total Protein 6.1 L, Albumin 3.2, Globulin 2.9, Albumin/Globulin Ratio 1.1, Triglycerides 75, Cholesterol 267 H, LDL Cholesterol 178 H, VLDL Cholesterol 15, HDL Cholesterol 74, TSH 3.02, Free T4 1.05 Radiography Diagnostic Testing: Radiology Impression Brain CT 06/20/23 19:19 IMPRESSION: Normal unenhanced CT scan of the brain. Electronically Signed: Piotr Scott MD at 19:41 EDT , ADDENDUM: 06/20/231950 IMPRESSION: Normal unenhanced CT scan of the brain. N.B. : The above Results were Read Back by Piotr Scott MD to Kirk Menon MD, and understanding confirmed on 06/20/2023 19:44:39 (ET). Electronically Signed: Piotr Scott MD at 19:41 EDT Reading Location ID and State: [address] [place] [address] Tel , Service support , Head/Neck CTA 06/20/23 19:19 IMPRESSION: Normal CTA Head and neck with contrast. Sensitivity limited without 3-D reformats. Mild nonspecific pulmonary interstitial infiltrates. Anterior subluxation C4-5 and degenerative disc disease. Electronically Signed: Piotr Scott MD at 20:01 EDT Reading Location ID and State: [address] [place] [address] Tel , Service support , ADDENDUM: 06/20/232010 IMPRESSION: Normal CTA Head and neck with contrast. Sensitivity limited without 3-D reformats. Mild nonspecific pulmonary interstitial infiltrates. Anterior subluxation C4-5 and degenerative disc disease. N.B. : The above Results were Read Back by Piotr Scott MD to Kirk Menon MD, and understanding confirmed on 06/20/2023 20:04:14 (ET). Electronically Signed: Piotr Scott MD at 20:01 EDT Reading Location ID and State: [facility] [place] Tel , Service support , Chest X-Ray 06/20/23 20:00 IMPRESSION: No acute disease Electronically Signed: Piotr Scott MD at 21:21 EDT Reading Location ID and State: [facility] / [place] Tel , Service support , Rhythm Strip Rhythm Strip: Sinus Rhythm Rate: 70 Ectopy: None Physical Exam Narrative Seen and examined. Patient had mechanical AV and ascending aorta replacement in 2001. She cannot have MRI. Admitted with expressive aphasia. She said she could not put the words together or make it into sentence. Physical exam General: Alert, Oriented x3, Cooperative HEENT: Atraumatic, PERRLA, EOMI, Normocephalic Oral: Oral mucosa moist. No Gingival or Mucosal Lesions/ Ulcerations Neck: Supple, No JVD, Negative Carotid Bruits Chest wall/Lungs: Air entry diminished in bilateral lung bases. No crepitation/rhonchi Cardiovascular: Sinus Rhythm, Normal S1, Normal S2, open heart surgery. Mechanical valve click. Abdomen: Bowel Sounds Present, Soft, Non Tender, Non-Distended : No dysuria. No renal angle tenderness. No suprapubic tenderness. Extremities: No edema, Capillary Refill Less than 3 Seconds Skin: No rashes, No breakdown Musculoskeletal: No Tenderness to Palpation of Joints or Extremities. ROM intact. Had left ankle surgery. Neurological: Cranial nerves II-XII grossly intact, DTR 2+/4. Mild language deficit.NIH stroke scale 1. Psych/Mental Status: Normal Affect, Appropriate. Assessment & Plan Assessment/Plan (1) CVA (cerebral vascular accident): PLAN: Plan The patient is an 78 y/o F who was admitted on 06/20/23 with slurred speech and expressive aphasia about 6:30 PM with recent history of headache of unclear time of onset #1. Dysarthria, expressive aphasia concerning for TIA/CVA: Patient being admitted in PCU. Patient has contraindication for MRI therefore will need CT head repeat 24 hours from the index CT scan. PT, OT, speech therapy/swallow evaluation and management, nursing NIH stroke scale, BP and glucose monitoring and control as per stroke protocol. Fasting profile shows elevated LDL 178, total cholesterol 267. TSH normal. Free T4 normal. A1c 4.9. [facility] neurology consult. #2. Hypertension: on permissive hypertension per stroke protocol with as needed agents per stroke order stat and resume home regimen once clinically appropriate. #3. 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 #4. History ascending aortic aneurysm: Per history status post ascending aortic replacement, unclear specific surgical interventions, from review of records in [facility] no recent chest imaging noted, encourage continued outpatient follow-up with vascular/CT as previously arranged. #5. Chronic Kidney Disease Stage IV: Patient baseline creatinine around 25 mill per minute. Today shows improvement, creatinine from 1.55-1.21. 0 #6. Neuroendocrine tumor: Patient with noted duodenum with a 2 cm polypoid lesion diagnosed eventually with a low-grade neuroendocrine tumor with family electing observation at this time, planned outpatient follow-up endoscopy in 3 [address] Espinoza, following also with Oncology Dr. Kumari with last evaluation note 04/14/23. #7. History of VTE: Patient upon presentation with subtherapeutic INR complicated by underlying mechanical valve history, as noted will continue Coumadin with overlapping heparin drip until INR therapeutic with INR trending continuation. #8. PAF: continue patient home flecainide and Coumadin, INR subtherapeutic therefore on IV heparin #9. Hypothyroidism: continue patient home levothyroxine regimen, TSH and free T4 are in normal range admission of #10. Dementia, unclear type with unclear behavioral disturbance history: Complicates presentation, continue patient home memantine regimen, PT/OT/case management consulted for discharge planning. #11. Anxiety and depression: continue patient home duloxetine, nortriptyline and mirtazapine regimen. #12. Seizure disorder: We will continue patient home Keppra as well as oxcarbazepine regimen. #13. Hyperlipidemia: Continue home statin regimen. AM FLP. #14. Obesity: Weight loss and lifestyle changes encouraged. #15. Gout: We will continue patient on allopurinol regimen. #16. GERD with Hx GI bleed w/ history of esophagitis, duodenal ulcers: Clarifying but from most recent GI note 06/10/2023 was restarted on omeprazole, previously been on famotidine which did not been working. Patient with most recent EGD per Dr. Espinoza with evidence of reflux esophagitis and duodenal ulcers with no signs of any bleeding. #17. DVT prophylaxis: Subtherapeutic INR #18. CODE status: Patient JOHN is her eldest daughter Dina who is present and living will is currently in place. Discussed CODE status at length including difference between FULL code, DNR-CCA and DNR-CC status. Following discussions about the differences in these status, requested DNR-CCA, no intubation status. Charges/Coding Visit Charges Inpatient E&M: 80915 Subs Hosp L2
[2023-06-21] MEDS: Aspirin 81 MG TAB.CHEW PO (09:41)
[2023-06-21] MEDS: DULoxetine Hcl 60 MG Capsule PO (09:42)
[2023-06-21] MEDS: Flecainide 100 MG Tablet 50 MG PO ×2 (09:43→20:34)
[2023-06-21] MEDS: Vibegron 75 MG TABLET PO (09:43)
[2023-06-21] MEDS: Pantoprazole Sodium 40 MG Tablet PO (09:43)
[2023-06-21] MEDS: Memantine Hydrochloride 10 MG Tablet PO ×2 (09:43→20:34)
[2023-06-21] MEDS: Potassium Chloride Oral Tablet 20 MEQ PO ×2 (09:43→20:33)
[2023-06-21] MEDS: levETIRAcetam 1,000 MG Tablet 1000 MG PO ×2 (09:43→20:33)
[2023-06-21] MEDS: Nortriptyline 25 MG Capsule 100 MG PO (09:43)
[2023-06-21] MEDS: 0.9% Saline Lock 10 ML Syringe IV (09:44)
[2023-06-21] MEDS: OXcarbazepine 150 MG Tablet PO ×2 (09:44→20:35)
[2023-06-21] MEDS: Allopurinol 100 MG Tablet PO (09:44)
--- NOTE | 2023-06-21 10:35 | CASEMGMT ---
RN CM Face to Face with patient for initial transition planning/care coordination assessment. RN CM introduced self and role at [facility]. Patient lying in bed, alert and oriented. Patient willing to participate in assessment and is able to answer all questions appropriately. Care providers, pharmacy, and demographics verified. PCP: [facility] Specialists: Benji, boiler attendant; Belle, die sinker apprentice; Solitario, neurologist; Adalid, urologist; Dmitry, export specialist; , global position system technician [facility] Insurance: Chyna RIVAS Prescription Benefit: yes Living Will/HPOA: yes, daughter Fátima Khan HPOA LNOK: daughters Living Arrangements: Patient lives alone in a single story condo with stair lift to basement. Patient states she is independent at home. Transportation: children DME/HHC: Patient has shower chair, raised toilet, grab bars, walker, rollator at home. Patient has been to Rehab Unit in the past. Patient has had [facility] in the past. Patient wishes to discharge home, will monitor progress with therapy for possible HHC. Patient states she has no further needs or concerns at this time. CM to follow for discharge planning needs that may arise. Disposition Plan: Patient to discharge home with family support and follow-up plans in place. Will monitor for HHC. Dara BAUTISTA, RN, CM
--- NOTE | 2023-06-21 12:54 | CASEMGMT ---
Advance Directive Validation: Healthcare Living Will and Healthcare Power [place] documents both scanned into the EMR. Rory Mckeon listed as pt's HPOA. Dejan Thompson RN ACM
[2023-06-21] MEDS: Acetaminophen 325 MG Tablet 650 MG PO (13:11)
--- NOTE | 2023-06-21 14:55 | NEURO.CONS ---
Assessment and Plan: Neuro Assessment/Plan CHANNING CANCHOLA is a 78 F with a past medical history of Valvular heart Disease, Ascending aortic aneurysm status postsurgical intervention, HT , being evaluated by Teleneurology for stroke. Pt presented with difficulty speaking and aphasia, symptoms are improving but she cont to have words finding difficulty. CT head and CTA with no acute changes. Diagnosis: acute ischemic stroke Plan: Repeat CT head now as the pt is on heparin Drip and last hptt is supra theraputic if mri is not possible permissive HTN high intensity statin TTE Pt/OT speech therapry HPI Consult Data Date of Consult: 06/21/23 HPI Narrative HPI Narrative: 78 yo woman with hx of valvar heart on Coumadin disease aortic aneurysm s.p repair HTN, HLD presented with words finding difficulty, pt was not a lytics candidate, CTA and CTHead with no acute finiding. symptoms are improving but she cont to have words finding difficulty. INR on arrival was sup therapeutic [facility] Medical History Aortic stenosis with bicuspid valve Ascending aortic aneurysm Atrial fibrillation Chronic pain Dementia Depression Esophageal reflux Essential hypertension GERD (gastroesophageal reflux disease) GI bleed Head injuries History of gout History of venous thrombosis and embolism Hyperparathyroidism Hypertension Hyperuricemia Hypothyroidism Kidney stones USP current use of 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 Migraines Near syncope Paroxysmal atrial fibrillation Physical debility Seizure disorder Seizures Spinal stenosis Stage 4 chronic kidney disease Thoracic aortic aneurysm (TAA) Urine retention Home Medications allopurinol 100 mg tablet 100 mg PO DAILY GOUT #90 tabs 02/22/19 [History Last Taken 03/17/23] levothyroxine 100 mcg tablet 100 mcg PO DAILY THYROID #90 tabs 02/22/19 [History Last Taken 03/17/23] levetiracetam 1,000 mg tablet (Keppra) 1,000 mg PO BID EPILEPSY 06/06/21 [History Last Taken 03/17/23] rosuvastatin 20 mg tablet (Crestor) 20 mg PO DAILY CHOLESTEROL 06/06/21 [History Last Taken 03/17/23] oxcarbazepine 150 mg tablet 150 mg PO BID EPILESPSY 09/12/21 [History Last Taken 03/17/23] amlodipine 10 mg tablet 10 mg PO DAILY BLOOD PRESSURE 11/25/21 [History Last Taken 03/17/23] metoprolol succinate 25 mg tablet,extended release 24 hr 12.5 mg PO DAILY HEART #90 tabs 11/25/21 [History Last Taken 03/17/23] flecainide 100 mg tablet 50 mg PO BID HEART 12/09/21 [History Last Taken 03/17/23] memantine 10 mg tablet 10 mg PO BID MEMORY 02/22/23 [History Last Taken 03/17/23] vibegron 75 mg tablet (Gemtesa) 75 mg PO DAILY OVERACTIVE BLADDER 02/22/23 [History Last Taken 03/17/23] duloxetine 60 mg capsule,delayed release 60 mg PO DAILY DEPRESSION 03/17/23 [History Last Taken 03/17/23] metaxalone 400 mg tablet 400 mg PO BID MUSCLE SPASMS/PAIN 03/17/23 [History Last Taken 03/17/23] nitroglycerin 0.4 mg sublingual tablet (Nitrostat) 0.4 mg sublingual Q5M PRN CHEST PAIN 03/17/23 [History Last Taken Unknown] nortriptyline 50 mg capsule 100 mg PO DAILY DEPRESSION 03/17/23 [History Last Taken 03/17/23] vitamin A 2,500 unit-vit C 100 mg-biotin 2,500 [id number] capsule (Horx-Tpkw-Nbmc (vit A,Y-rywhfc-Pv-Cu)) 1 cap PO DAILY SUPPLEMENT 03/17/23 [History Last Taken 03/17/23] warfarin 4 mg tablet 4 mg PO DAILY BLOOD THINNER 03/17/23 [History Last Taken 03/17/23] hydrocodone-acetaminophen 5-325mg 5mg-325mg 1 tab PO BID PRN PAIN 03/26/23 [History Last Taken Unknown] Lactobacillus acidophilus 250 million cell capsule (Probiotic Acidophilus) 1,000 mmu cells PO DAILY asthma 04/14/23 [History Last Taken Unknown] cholecalciferol (vitamin D3) 50 mcg (2,000 unit) capsule (D3-2000) 2,000 unit PO DAILY 06/20/23 [History Last Taken Unknown] omeprazole 40 mg capsule,delayed release 40 mg PO DAILY 06/20/23 [History Last Taken Unknown] fluticasone propionate 220 mcg/actuation HFA aerosol inhaler 2 inh inhalation BID asthma 06/21/23 [History Last Taken Unknown] Allergy/AdvReac Type Severity Reaction Status Date / Time celecoxib [From Celebrex] Allergy Severe Hives, Verified 06/20/23 19:17 swelling, difficulty breathing Sulfa (Sulfonamide Allergy Severe Hives, Verified 06/20/23 19:17 Antibiotics) swelling, difficulty breathing gemfibrozil AdvReac Intermediate Nausea,myal Verified 06/20/23 19:17 gias Family History Mother CVA (cerebral vascular accident) Breast cancer Hypertension CAD (coronary artery disease) Father Hypertension CAD (coronary artery disease) Surgical History Fracture of ankle, bimalleolar, left, closed H/O chest tube placement (05/07/01) History of appendectomy History of bilateral breast reduction surgery (2008) History of left heart catheterization (12/07/15) History of loop recorder History of lumpectomy (2009) History of open reduction and internal fixation (ORIF) procedure (11/30/19) History of thumb surgery (2004) History of tilt table evaluation (05/21/16) History of total abdominal hysterectomy (1974) Hx of aortic valve replacement, mechanical (04/05/01) Hx of ascending aorta replacement (04/05/01) Social History household members: none housing: condominium Smoking Status: Never smoker alcohol intake: never substance use type: does not use Vital Signs Vital Signs Vital Signs: 06/20/23 19:14 06/20/23 19:19 06/20/23 19:19 Temperature 98.0 F Temperature Source Temporal Pulse Rate 91 72 Respiratory Rate 18 16 Respiratory Effort Respiratory Depth Respiratory Pattern Blood Pressure 123/75 H 179/71 H Blood Pressure Mean 91 107 Blood Pressure Source Blood Pressure Position Blood Pressure Location Pulse Ox 96 97 Oxygen Delivery Method Room Air Room Air Room Air 06/20/23 19:34 06/20/23 19:35 06/20/23 19:50 Temperature Temperature Source Pulse Rate 71 72 71 Respiratory Rate 14 14 17 Respiratory Effort Respiratory Depth Respiratory Pattern Blood Pressure 154/66 H 160/69 H 169/65 H Blood Pressure Mean 95 99 99 Blood Pressure Source Blood Pressure Position Blood Pressure Location Pulse Ox 98 99 99 Oxygen Delivery Method Room Air Room Air Room Air 06/20/23 20:05 06/20/23 20:20 06/20/23 20:35 Temperature Temperature Source Pulse Rate 70 71 71 Respiratory Rate 16 16 17 Respiratory Effort Respiratory Depth Respiratory Pattern Blood Pressure 160/69 H 166/82 H 170/89 H Blood Pressure Mean 99 110 116 Blood Pressure Source Blood Pressure Position Blood Pressure Location Pulse Ox 98 99 98 Oxygen Delivery Method Room Air Room Air Room Air 06/20/23 20:50 06/20/23 22:30 06/20/23 23:31 Temperature 97.6 F L 97.6 F L 98 F Temperature Source Oral Oral Pulse Rate 72 71 70 Respiratory Rate 16 16 16 Respiratory Effort Respiratory Depth Respiratory Pattern Blood Pressure 177/67 H 166/69 H 168/64 H Blood Pressure Mean 103 101 98 Blood Pressure Source Monitor Monitor Blood Pressure Position Semi-Fowlers Semi-Fowlers Blood Pressure Location Left Arm Right Forearm Pulse Ox 98 98 98 Oxygen Delivery Method Room Air Room Air 06/20/23 23:44 06/21/23 03:30 06/21/23 00:11 Temperature 97.5 F L Temperature Source Oral Pulse Rate 66 Respiratory Rate 16 Respiratory Effort Normal Non-Labored Respiratory Depth Normal Respiratory Pattern Normal Blood Pressure 142/65 H Blood Pressure Mean 90 Blood Pressure Source Monitor Blood Pressure Position Semi-Fowlers Blood Pressure Location Right Forearm Pulse Ox 96 96 Oxygen Delivery Method Room Air Room Air Room Air 06/21/23 07:31 06/21/23 08:26 06/21/23 09:30 Temperature 97.3 F L Temperature Source Temporal Pulse Rate 66 Respiratory Rate 16 Respiratory Effort Normal Non-Labored Respiratory Depth Normal Respiratory Pattern Normal Blood Pressure 146/69 H Blood Pressure Mean 94 Blood Pressure Source Monitor Blood Pressure Position Semi-Fowlers Blood Pressure Location Right Forearm Pulse Ox 97 98 Oxygen Delivery Method Room Air Room Air Room Air 06/21/23 09:34 06/21/23 11:41 Temperature 97.3 F L Temperature Source Temporal Pulse Rate 82 69 Respiratory Rate 16 Respiratory Effort Respiratory Depth Respiratory Pattern Blood Pressure 123/74 H Blood Pressure Mean 90 Blood Pressure Source Monitor Blood Pressure Position Semi-Fowlers Blood Pressure Location Right Forearm Pulse Ox 98 Oxygen Delivery Method Room Air Weight Weight: 103.1 kg Body Mass Index (BMI) 38.9 EEG Results Procedure Details EEG Procedure Details: CHANNING CANCHOLA is a 78 year old F with a past medical history of , who presents for evaluation of Electroencephalogram on DATE at TIME NIHSS NIHSS Nursing Documentation NIHSS Nursing Documentation: NIHSS: Ischemic Stroke/TIA Start: 06/20/23 21:38 Text: For PCU Patients: NIH and Neuro Check every 4 Status: Active hours and PRN Freq: [id number] Protocol: Activity Type Activity Date Activity User E-sign Co-sign Detail Recorded Client Recorded Date Recorded By Document 06/21/23 11:41 MS Desktop 06/21/23 11:56 MS 06/21/23 11:41 NIH Stroke Scale [NIHSS] A score of 0 is normal or asymptomatic . Total possible score is 42. Inpatient: RN or Physician to activate a stroke alert for onset of new stroke symptoms or with NIHSS increase >/= 3 points. Following change in neurological status, NIHSS will be performed per physician order or more frequently PRN. -1a. Level of Consciousness Alert; keenly responsive -1b. LOC Questions Answers BOTH questions correctly. -1c. LOC Commands Performs both tasks correctly . -2. Best Gaze Normal -3. Visual No visual loss -4. Facial Palsy Normal symmetrical movements -5a. Left Arm No drift; arm holds 90 (or 45 ) degrees for full 10 seconds -5b. Right Arm No drift; arm holds 90 (or 45 ) degrees for full 10 seconds -6a. Left Leg No drift; leg holds 30-degree position for full 5 seconds -6b. Right Leg No drift; leg holds 30-degree position for full 5 seconds -7. Limb Ataxia Absent -8. Sensory Normal; no sensory loss -9. Best Language Mild-to- moderate aphasia; -10. Dysarthria Normal -11. Extinction and Inattention No abnormality -Total 1 Query Text:A score of 0 is normal or asymptomatic. Total possible score is 42 . ED: Notify Physician for NIHSS increase by > / = 3 points. Inpatient: RN or Physician to activate a stroke alert for NIHSS increase of > / = 3 points. Physical Exam Narrative awake alert oriented to self and place, able to name repeat with occasional paraphrasing error. able to repeat and follow commands face symmetric move all ext with no drift Lab / Micro Data 06/21/23 04:40 06/21/23 04:40 Labs: Laboratory Results - last 24 hr 06/20/23 19:16: POC Glucose 105 06/20/23 19:18: WBC 10.8, RBC 4.12 L, Hgb 12.3, Hct 38.4, MCV 93.2, MCH 29.9, MCHC 32.0, RDW Std Deviation 46.2 H, RDW Coeff of Pravin 13.7, Plt Count 280, MPV 8.8, Immature Gran % (Auto) 0.300, Neut % (Auto) 79.0 H, Lymph % (Auto) 10.7 L, Dixie % (Auto) 8.0, Eos % (Auto) 1.5, Baso % (Auto) 0.5, Absolute Neuts (auto) 8.6 H, Absolute Lymphs (auto) 1.16, Nucleated RBC % 0, PT 14.2, INR 1.1, APTT 24.4, Sodium 139, Potassium 4.1, Chloride 106, Carbon Dioxide 26.0, Anion Gap 7, BUN 33 H, Creatinine 1.55 H, Estim Creat Clear Calc 31.45, Est GFR (MDRD) Af Amer 41 L, Est GFR (MDRD) Non-Af 34 L, BUN/Creatinine Ratio 21.3 H, Glucose 112 H, Calcium 9.6, Troponin I High Sens 8 06/20/23 21:08: PT 15.0 H 06/20/23 21:08: PT Cancelled, INR 1.2 06/20/23 21:08: INR Cancelled, APTT 24.8, Magnesium 1.9 06/21/23 04:40: WBC 7.2, RBC 3.53 L, Hgb 10.6 L, Hct 33.0 L, MCV 93.5, MCH 30.0, MCHC 32.1, RDW Std Deviation 46.2 H, RDW Coeff of Pravin 13.6, Plt Count 211, MPV 8.6, Immature Gran % (Auto) 0.300, Neut % (Auto) 78.7 H, Lymph % (Auto) 9.9 L, Dixie % (Auto) 8.1, Eos % (Auto) 2.4, Baso % (Auto) 0.6, Absolute Neuts (auto) 5.7, Absolute Lymphs (auto) 0.71 L, Nucleated RBC % 0, PT 17.0 H, INR 1.4, APTT 233.5 H*, Sodium 139, Potassium 3.6, Chloride 109 H, Carbon Dioxide 26.0, Anion Gap 4 L, BUN 23 H, Creatinine 1.21 H, Estim Creat Clear Calc 43.35, Est GFR (MDRD) Af Amer 55 L, Est GFR (MDRD) Non-Af 46 L, BUN/Creatinine Ratio 19.0, Glucose 93, Hemoglobin A1c 4.9, Calcium 8.7, Total Bilirubin 0.50, AST 13 L, ALT 23, Alkaline Phosphatase 79, Total Protein 6.1 L, Albumin 3.2, Globulin 2.9, Albumin/Globulin Ratio 1.1, Triglycerides 75, Cholesterol 267 H, LDL Cholesterol 178 H, VLDL Cholesterol 15, HDL Cholesterol 74, TSH 3.02, Free T4 1.05 Rhythm Strip Rhythm Strip: Sinus Rhythm Rate: 70 Ectopy: None Imaging Radiology Impression Brain CT 06/20/23 19:19 IMPRESSION: Normal unenhanced CT scan of the brain. Electronically Signed: Piotr Scott MD at 19:41 EDT Reading Location ID and State: [address] [place] [address] Tel , Service support , ADDENDUM: 06/20/231950 IMPRESSION: Normal unenhanced CT scan of the brain. N.B. : The above Results were Read Back by Piotr Scott MD to Kirk Menon MD, and understanding confirmed on 06/20/2023 19:44:39 (ET). Electronically Signed: Piotr Scott MD at 19:41 EDT Reading Location ID and State: [address] [place] [address] Tel , Service support , Head/Neck CTA 06/20/23 19:19 IMPRESSION: Normal CTA Head and neck with contrast. Sensitivity limited without 3-D reformats. Mild nonspecific pulmonary interstitial infiltrates. Anterior subluxation C4-5 and degenerative disc disease. Electronically Signed: Piotr Scott MD at 20:01 EDT Reading Location ID and State: [address] [place] [address] Tel , Service support , ADDENDUM: 06/20/232010 IMPRESSION: Normal CTA Head and neck with contrast. Sensitivity limited without 3-D reformats. Mild nonspecific pulmonary interstitial infiltrates. Anterior subluxation C4-5 and degenerative disc disease. N.B. : The above Results were Read Back by Piotr Scott MD to Kirk Menon MD, and understanding confirmed on 06/20/2023 20:04:14 (ET). Electronically Signed: Piotr Scott MD at 20:01 EDT , Chest X-Ray 06/20/23 20:00 IMPRESSION: No acute disease Electronically Signed: Piotr Scott MD at 21:21 EDT Reading Location ID and State: [facility] / [place] Tel , Service support , Echocardiogram 06/20/23 21:38 Interpretation Summary The estimated ejection fraction is 55 %. Unable to assess diastolic dysfunction. The left atrium is mildly enlarged. Trivial mitral valve insufficiency. Ordering Physician: Diamond Castillo Referring Physician: Kishore Ricci Performed By: Ce Reyna RCS Active Medications Active Medications Active Medications: Current Medications Generic Name Dose Route Start Last Admin Trade Name Freq PRN Reason Stop Dose Admin Acetaminophen 650 mg 06/20/23 21:38 06/21/23 13:11 Acetaminophen 325 Mg Tablet PO 650 mg Q4H PRN PRN Administration Fever, pain 1-12/22 Hydrocodone Bitart/Acetaminophen 1 tablet 06/20/23 21:38 Hydrocodone Bitartrate/Apap 5/325 Tablet PO BID PRN PRN Pain Score 4-10 Al Hydroxide/Mg Hydroxide 30 ml 06/20/23 21:38 Mag Hydrox/Al Hydrox/Simeth 30 Ml Udc PO Q6H PRN PRN Gastric Burning Allopurinol 100 mg 06/21/23 10:00 06/21/23 09:44 Allopurinol 100 Mg Tablet PO 100 mg DAILY [facility] Administration Aspirin 81 mg 06/21/23 08:00 06/21/23 09:41 Aspirin 81 Mg Tab.Chew PO 81 mg BREAKFAST [facility] Administration Atorvastatin Calcium 40 mg 06/20/23 22:00 06/20/23 23:18 Atorvastatin Calcium 40 Mg Tablet PO 40 mg QHS [facility] Administration Budesonide 0.5 mg 06/21/23 14:00 Budesonide Respules 0.5 Mg/2 Ml Ampul.Neb. INHALATION Q12H.RT [facility] Calamine/Phenol 1 applic 06/20/23 22:00 06/21/23 13:08 Menthol/Lanolin/Calamine/Znox 113 Gm Tube TOPICAL Not Given 4X/DAY [facility] Protocol Cholecalciferol 50 mcg 06/22/23 10:00 Cholecalciferol (Vit D3) 25 Mcg Tablet (1,000 Units) PO DAILY [facility] Duloxetine HCl 60 mg 06/21/23 10:00 06/21/23 09:42 Duloxetine Hcl 60 Mg Capsule PO 60 mg DAILY [facility] Administration Flecainide Acetate 50 mg 06/20/23 22:00 06/21/23 09:43 Flecainide 100 Mg Tablet PO 50 mg BID [facility] Administration Guaifenesin 20 ml 06/20/23 21:38 Guaifenesin 10 Ml Udc (200mg/10ml) PO Q4H PRN PRN COUGH Heparin Sodium (Porcine) 0 unit 06/20/23 21:45 Heparin Injection (Vial) 5,000 Unit/Ml Vial IV UD PRN dose adjustment Protocol Hydralazine HCl 5 mg 06/20/23 21:38 Hydralazine 20 Mg/Ml Vial IV Q30M PRN to maintain BP goals Heparin Sodium/Dextrose 25,000 units in 250 mls @ 12 mls/hr 06/20/23 21:38 06/21/23 09:38 CONT INF 900 units/hr .[id number] [facility] 9 mls/hr Titration Protocol As Directed Sodium Chloride 250 mls @ 15 mls/hr 06/20/23 22:42 IV .[id number] PRN Additional IVPB Infusion Sodium Chloride 250 mls @ 15 mls/hr 06/20/23 22:42 IV .[id number] PRN Saline Flush Labetalol HCl 10 - 20 mg 06/20/23 21:38 Labetalol (Prefilled) 20 Mg/4 Ml IV Q10M PRN PRN to Maintain BP Goals Levetiracetam 1,000 mg 06/20/23 22:00 06/21/23 09:43 Levetiracetam 1,000 Mg Tablet PO 1,000 mg BID [facility] Administration Levothyroxine Sodium 100 mcg 06/21/23 06:00 06/21/23 06:25 Levothyroxine 100 Mcg Tablet PO 100 mcg DAILY@0600 [facility] Administration Melatonin 3 mg 06/20/23 21:38 Melatonin 3 Mg Tablet PO QHS PRN PRN INSOMNIA Memantine 10 mg 06/20/23 22:00 06/21/23 09:43 Memantine Hydrochloride 10 Mg Tablet PO 10 mg BID [facility] Administration Metaxalone 400 mg 06/21/23 22:00 Metaxalone 800 Mg Tablet PO BID [facility] Mirtazapine 7.5 mg 06/20/23 21:51 Mirtazapine 15 Mg Tablet PO QHS PRN PRN DEPRESSON Nortriptyline HCl 100 mg 06/21/23 10:00 06/21/23 09:43 Nortriptyline 25 Mg Capsule PO 100 mg DAILY [facility] Administration Ondansetron HCl 4 mg 06/20/23 21:38 Ondansetron 4 Mg/2 Ml Vial IV Q8H PRN PRN NAUSEA/VOMITING Oxcarbazepine 150 mg 06/20/23 22:00 06/21/23 09:44 Oxcarbazepine 150 Mg Tablet PO 150 mg BID [facility] Administration Pantoprazole Sodium 40 mg 06/22/23 10:00 Pantoprazole Sodium 40 Mg Tablet PO DAILY [facility] Potassium Chloride 20 meq 06/20/23 22:00 06/21/23 09:43 Potassium Chloride Oral Tablet 20 Meq PO 20 meq BID [facility] Administration Prochlorperazine Edisylate 5 mg 06/20/23 21:38 Prochlorperazine 10 Mg/2 Ml Vial IV Q4H PRN PRN Breakthrough Nausea/Vomiting Senna/Docusate Sodium 2 tablet 06/20/23 21:38 Senna/Docusate Sodium 1 Tablet PO BID PRN PRN Constipation Sodium Chloride 10 - 40 ml 06/20/23 22:42 06/21/23 09:44 0.9% Saline Lock 10 Ml Syringe IV 10 ml UD PRN Administration SALINE FLUSH Warfarin Sodium 4 mg 06/20/23 21:38 06/20/23 23:17 Warfarin 4 Mg Tablet PO 4 mg DAILY@1700 [facility] Administration
--- NOTE | 2023-06-21 15:43 | CHAPLAIN ---
Type of Pastoral Visit _x__ Initial Visit ___ Follow-up Visit ___ On-call Visit ___ General Patient Visit ___ Spiritual Assessment ___ Family Conference ___ Bereavement ___ Rapid Response ___ Code Blue ___ Other (describe below) Pastoral Care Referral From _x__ Patient ___ Family ___ Nurse ___ Physician ___ [place] ___ Historical Guide ___ Other (describe below) Sacrament/Intervention _x__ Active listening ___ Anointing ___ Roman Catholic ___ Bereavement ___ Communion ___ Oralia exploration ___ ___ Life review _x__ Prayer ___ Reconciliation ___ Sacrament of Sick ___ Supportive presence ___ Wedding ___ Other (describe below) Pastoral Comments patient states that she is getting her words out better now and thinking a bit more clearly; pt is encouraged by some progress and just wants to go home; daughters are with her in the room; pt asks for a prayer
[2023-06-21 16:08] LABS: Partial Thromboplast Time 73.7 Seconds (24.1-36.2)
--- NOTE | 2023-06-21 18:02 | CT_ITS ---
We are attempting to reach an attending provider to discuss findings. An addendum with communication details will be sent when the communication is complete. STUDY: CT BRAIN WITHOUT CONTRAST REASON FOR EXAM: Female, 78 years old. CVA, follow-up, cannot have MRI RADIATION DOSAGE (If Supplied By Facility): CTDIvol = ( 44.99 ) mGy, DLP = ( 812.98 ) mGycm TECHNIQUE: Transaxial CT imaging of the brain was performed without administration of intravenous contrast material. Individualized dose optimization techniques were used for this CT. COMPARISON: June 20, 2023 FINDINGS: Normal soft tissue structures. Normal calvarium. Slightly prominent Normal size ventricles and extra-axial spaces with mild atrophy. Mild white matter microangiopathic ischemic changes of the cerebral hemispheres. Normal basal ganglia and thalami. Normal brainstem. Normal cerebellum. There is no intracranial hemorrhage. There is subtle diminished cortical attenuation in the left parietal area. Normal visualized paranasal sinuses. CT/Brain/Head without Contrast IMPRESSION: There is subtle diminished cortical attenuation in the left parietal area.: MRI correlation is recommended. Electronically Signed: Camacho Camp DO at 20:08 EDT ,
[2023-06-21] MEDS: Budesonide Respules 0.5 MG/2 ML AMPUL.NEB. INHALATION (19:51)
[2023-06-21] MEDS: Atorvastatin Calcium 40 MG Tablet PO (20:33)
[2023-06-21] MEDS: Metaxalone 800 MG Tablet 400 MG PO (20:34)
[2023-06-21 22:08] LABS: Partial Thromboplast Time 73.4 Seconds (24.1-36.2)
[2023-06-22 00:18] LABS: Bedside Glucose 107 mg/dL (74-106)
[2023-06-22] MEDS: HEPARIN/D5w 25,000 UNITS 25,000 UNITS/250 ML IV.SOLN. 9 UNITS CONT INF (00:39)
[2023-06-22 03:06] VITALS: BMI 38.9
[2023-06-22 03:30] VITALS: BP 138/73; PULSE 70; RESP 18; TEMP 36.1; O2SAT 95
[2023-06-22 03:39] VITALS: BMI 39.5
[2023-06-22 04:08] LABS: Partial Thromboplast Time 77.8 Seconds (24.1-36.2)
[2023-06-22] MEDS: Levothyroxine 100 MCG Tablet PO (06:00)
[2023-06-22 06:57] VITALS: PULSE 88; RESP 20; O2SAT 95
[2023-06-22] MEDS: Budesonide Respules 0.5 MG/2 ML AMPUL.NEB. INHALATION (06:57)
[2023-06-22 07:34] VITALS: BP 153/73; PULSE 72; RESP 16; TEMP 35.9; O2SAT 99
[2023-06-22] MEDS: Aspirin 81 MG TAB.CHEW PO (07:51)
[2023-06-22] MEDS: Acetaminophen 325 MG Tablet 650 MG PO (07:51)
[2023-06-22 08:20] LABS: Absolute Lymphocyte Count 0.63 X10^3/uL (0.83-4.51); Absolute Neutrophil Count 5.1 X10^3/uL (2.0-7.7); Basophil# 0.04 X10^3/uL; Basophil% 0.6 % (0-1); Eosinophil# 0.22 X10^3/uL; Eosinophils% 3.4 % (0-5); Hematocrit 33.3 % (37-47); Hemoglobin 10.6 g/dL (12.0-15.0); Lymphocyte # 0.63 X10^3/ul (0.83-4.51); Lymphocyte % 9.6 % (19-41); Mean Corp Hgb Conc 31.8 g/dL (32-36); Mean Corpuscular Hgb 29.4 pg (27.0-32.0); Mean Corpuscular Volume 92.5 fL (81-99); Mean Platelet Vol. 9.2 fl (6.2-12.0); Monocyte# 0.56 X10^3/uL; Monocyte% 8.5 % (0-10); NRBC Flagged by Analyzer 0 % (0-5); Neutrophil # 5.08 X10^3/uL (2.7-7.7); Neutrophil % 77.4 % (47-70); Platelet Count 220 K/mm3 (150-450); RBC Distribution Width CV 13.5 % (11.6-14.6); RBC Distribution Width SD 46.1 fl (35.1-43.9); White Blood Count 6.6 K/mm3 (4.4-11.0)
[2023-06-22 08:32] LABS: International Normalized Ratio 1.4; Prothrombin Time (Protime)PT. 17.3 SECONDS (11.7-14.9)
--- NOTE | 2023-06-22 10:15 | DS.PCM_ITS ---
Providers Date of Admission: 06/20/23 Date of Discharge: 06/22/23 Primary Care Physician: Dr. Kishore Ricci MD Consultations 06/20/23 21:38 Consult: Tele-Neurology Routine Consulting Provider: [facility] Reason for Consult: Acute Ischemic Stroke/TIA EMERGENT Consult: No MD Notified: Yes Date Notified: 06/20/23 Time Notified: 21:54 Method of Notification: Answering Service Method of Consult:: Telemedicine Nursing Unit Staff Notify [facility] of Tele-Neurology Consult: Yes Reason For Visit: CVA/TIA Diagnosis Discharge Diagnosis (1) CVA (cerebral vascular accident): Status: Acute Code(s): I63.9 - Cerebral infarction, unspecified Plan The patient is an 78 y/o F who was admitted on 06/20/23 with slurred speech and expressive aphasia about 6:30 PM with recent history of headache of unclear time of onset #1. Dysarthria, expressive aphasia consistent with acute left parietal ischemic infarct: Patient being admitted in PCU. Patient has contraindication for MRI therefore will need CT head repeat 24 hours from the index CT scan. PT, OT, speech therapy/swallow evaluation and management, nursing NIH stroke scale, BP and glucose monitoring and control as per stroke protocol. Fasting profile shows elevated LDL 178, total cholesterol 267. TSH normal. Free T4 normal. A1c 4.9. [facility] neurolog[facility] was consulted 06/21: Repeat CT head shows subtle diminished cortical attenuation in the left parietal area consistent with acute stroke, correlates with the symptoms of mild language deficit. Patient has improvement in his speech but sometimes her spee ch is slow. Discussed with the neurologist. Patient on warfarin but INR is subtherapeutic 1.4. Discussed with enoxaparin bridging treatment 1 mg every 12 hourly for 5 days and patient agreed and she has used it in the past. Discharged on enoxaparin and increased dose of warfarin 6 mg daily. Monitor INR daily and follow-up with PCP. #2. Hypertension: on permissive hypertension per stroke protocol with as needed agents per stroke order stat and resume home regimen once clinically appropriate. 06/22: Blood pressure is in permissive hypertensive range. #3. 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 06/21 as discussed in detail above. #4. History ascending aortic aneurysm: Per history status post ascending aortic replacement, unclear specific surgical interventions, from review of records in [facility] no recent chest imaging noted, encourage continued outpatient follow-up with vascular/CT as previously arranged. #5. Chronic Kidney Disease Stage IV: Patient baseline creatinine around 25 mill per minute. Today shows improvement, creatinine from 1.55-1.21. #6. Neuroendocrine tumor: Patient with noted duodenum with a 2 cm polypoid lesion diagnosed eventually with a low-grade neuroendocrine tumor with family electing observation at this time, planned outpatient follow-up endoscopy in [address] Espinoza, following also with Oncology Dr. Kumari with last evaluation note 04/14/23. #7. History of VTE: Patient upon presentation with subtherapeutic INR complicated by underlying mechanical valve history, as noted will continue Coumadin with overlapping heparin drip until INR therapeutic with INR trending continuation. #8. PAF: continue patient home flecainide and Coumadin, INR subtherapeutic therefore on IV heparin #9. Hypothyroidism: continue patient home levothyroxine regimen, TSH and free T4 are in normal range admission of #10. Dementia, unclear type with unclear behavioral disturbance history: Complicates presentation, continue patient home memantine regimen, PT/OT/case management consulted for discharge planning. #11. Anxiety and depression: continue patient home duloxetine, nortriptyline and mirtazapine regimen. #12. Seizure disorder: We will continue patient home Keppra as well as oxcarbazepine regimen. #13. Hyperlipidemia: Continue home statin regimen. AM FLP. #14. Obesity: Weight loss and lifestyle changes encouraged. #15. Gout: We will continue patient on allopurinol regimen. #16. GERD with Hx GI bleed w/ history of esophagitis, duodenal ulcers: Clarifying but from most recent GI note 06/10/2023 was restarted on omeprazole, previously been on famotidine which did not been working. Patient with most recent EGD per Dr. Espinoza with evidence of reflux esophagitis and duodenal ulcers with no signs of any bleeding. #17. DVT prophylaxis: Subtherapeutic INR #18. CODE status: Patient JOHN is her eldest daughter Dina who is present and living will is currently in place. Discussed CODE status at length including difference between FULL code, DNR-CCA and DNR-CC status. Following discussions about the differences in these status, requested DNR-CCA, no intubation status. Discharge medication reconciliation done. Discharge follow-up instructions completed. Discharge process discussed with the patient and all questions were answered to patient's satisfaction. Follow with PCP in 1 to 2 weeks Total time spent, exact 35 minutes on discharge meds reconciliation, examination, coordination of care with nurses and ancillary staff, review of imaging and blood test and discussion with the patient on follow-up instructions. Medications at Discharge Home Medications allopurinol 100 mg tablet 100 mg PO DAILY GOUT #90 tabs 02/22/19 levothyroxine 100 mcg tablet 100 mcg PO DAILY THYROID #90 tabs 02/22/19 levetiracetam 1,000 mg tablet (Keppra) 1,000 mg PO BID EPILEPSY 06/06/21 oxcarbazepine 150 mg tablet 150 mg PO BID EPILESPSY 09/12/21 amlodipine 10 mg tablet 10 mg PO DAILY BLOOD PRESSURE 11/25/21 metoprolol succinate 25 mg tablet,extended release 24 hr 12.5 mg PO DAILY HEART #90 tabs 11/25/21 flecainide 100 mg tablet 50 mg PO BID HEART 12/09/21 memantine 10 mg tablet 10 mg PO BID MEMORY 02/22/23 vibegron 75 mg tablet (Gemtesa) 75 mg PO DAILY OVERACTIVE BLADDER 02/22/23 duloxetine 60 mg capsule,delayed release 60 mg PO DAILY DEPRESSION 03/17/23 metaxalone 400 mg tablet 400 mg PO BID MUSCLE SPASMS/PAIN 03/17/23 nitroglycerin 0.4 mg sublingual tablet (Nitrostat) 0.4 mg sublingual Q5M PRN CHEST PAIN 03/17/23 nortriptyline 50 mg capsule 100 mg PO DAILY DEPRESSION 03/17/23 vitamin A 2,500 unit-vit C 100 mg-biotin 2,500 ibn-efsb-irgbbt capsule (Vlwy-Nfld-Ztxx (vit A,R-zrvmsf-Ou-Cu)) 1 cap PO DAILY SUPPLEMENT 03/17/23 warfarin 4 mg tablet 4 mg PO DAILY BLOOD THINNER 03/17/23 hydrocodone-acetaminophen 5-325mg 5mg-325mg 1 tab PO BID PRN PAIN 03/26/23 Lactobacillus acidophilus 250 million cell capsule (Probiotic Acidophilus) 1,000 mmu cells PO DAILY asthma 04/14/23 cholecalciferol (vitamin D3) 50 mcg (2,000 unit) capsule (D3-2000) 2,000 unit PO DAILY vitamin 06/20/23 omeprazole 40 mg capsule,delayed release 40 mg PO DAILY reflux 06/20/23 fluticasone propionate 220 mcg/actuation HFA aerosol inhaler 2 inh inhalation BID asthma 06/21/23 enoxaparin 100 mg/mL subcutaneous syringe (Lovenox) 100 mg subcut Q12H 5 days #10 mL 06/22/23 rosuvastatin 40 mg tablet 40 mg PO QHS 1 month #30 tabs 06/22/23 warfarin 6 mg tablet (Jantoven) 6 mg PO DAILY@1700 30 days #30 tabs 06/22/23 Physical Exam Narrative Seen and examined. Patient had mechanical AV and ascending aorta replacement in 2001. She cannot have MRI. Admitted with expressive aphasia and her speech is much improved. Physical exam General: Alert, Oriented x3, Cooperative HEENT: Atraumatic, PERRLA, EOMI, Normocephalic Oral: Oral mucosa moist. No Gingival or Mucosal Lesions/ Ulcerations Neck: Supple, No JVD, Negative Carotid Bruits Chest wall/Lungs: Air entry diminished in bilateral lung bases. No crepitation/rhonchi Cardiovascular: Sinus Rhythm, Normal S1, Normal S2, open heart surgery. Mech anical valve click. Abdomen: Bowel Sounds Present, Soft, Non Tender, Non-Distended : No dysuria. No renal angle tenderness. No suprapubic tenderness. Extremities: No edema, Capillary Refill Less than 3 Seconds Skin: No rashes, No breakdown Musculoskeletal: No Tenderness to Palpation of Joints or Extremities. ROM intact. Had left ankle surgery. Neurological: Cranial nerves II-XII grossly intact, DTR 2+/4. Intermittent mild language deficit. NIH stroke scale 0. Psych/Mental Status: Normal Affect, Appropriate. Weight / BMI Weight Weight: 230 lb 9.656 oz Body Mass Index (BMI) 39.5 ABG / Lab / Microbiology Data 06/22/23 08:10 06/22/23 08:10 Laboratory: Laboratory Results - last 24 hr 06/21/23 15:30: APTT 73.7 H 06/21/23 21:27: APTT 73.4 H 06/21/23 23:57: POC Glucose 107 H 06/22/23 03:42: APTT 77.8 H 06/22/23 08:10: WBC 6.6, RBC 3.60 L, Hgb 10.6 L, Hct 33.3 L, MCV 92.5, MCH 29.4, MCHC 31.8 L, RDW Std Deviation 46.1 H, RDW Coeff of Pravin 13.5, Plt Count 220, MPV 9.2, Immature Gran % (Auto) 0.500, Neut % (Auto) 77.4 H, Lymph % (Auto) 9.6 L, Shannon % (Auto) 8.5, Eos % (Auto) 3.4, Baso % (Auto) 0.6, Absolute Neuts (auto) 5.1, Absolute Lymphs (auto) 0.63 L, Nucleated RBC % 0, PT 17.3 H, INR 1.4 Radiography Diagnostic Testing: Radiology Impression Echocardiogram 06/20/23 21:38 Interpretation Summary The estimated ejection fraction is 55 %. Unable to assess diastolic dysfunction. The left atrium is mildly enlarged. Trivial mitral valve insufficiency. Ordering Physician: Diamond Castillo Referring Physician: Kishore Ricci Performed By: Ce Reyna RCS Brain CT 06/21/23 18:02 IMPRESSION: There is subtle diminished cortical attenuation in the left parietal area.: MRI correlation is recommended. Electronically Signed: Camacho Camp DO at 20:08 EDT , ADDENDUM: 06/21/232139 IMPRESSION: There is subtle diminished cortical attenuation in the left parietal area.: MRI correlation is recommended. N.B. : The above Results were Read Back by Camacho Camp DO to Araceli Sorensen RN, and understanding confirmed on 06/21/2023 21:33:35 (ET). Electronically Signed: Camacho Camp DO at 20:08 EDT Reading Location ID and State: [facility] / [place] Tel [phone], Service support , D/C Instructions Discharge Diet: Low fat / Low cholesterol and 2000 mg Sodium Diet Weight Bearing Status: Weight bearing as tolerated Call your doctor if you observe: Fever of 101 or Higher, Coldness, Increased Pain, Numbness or Tingling, Change in Color, Inability to urinate, Inability to have a bowel movement, Using more than 1 pad per hour, Shortness of breath, Dizziness, Fainting spells, Swelling in the ankles, Chest pain, Prolonged hiccupping, Increased palpitations (irregular heartbeat) and Calf discomfort When: IN 2 WEEKS Meaningful Use Info Meaningful Use Diagnoses (Choose all that apply): Ischemic CVA CVA Therapy Assessed for PT,OT and/or ST?: Yes Ischemic Stroke Antithrombotic order at d/c?: Yes Dx of Atrial fib/flutter?: Yes Anticoagulant at discharge?: Yes Statins at discharge?: Yes Primary Dx Acute Ischemic CVA?: Yes Discharge Plan Admission Admit Date/Time: 06/20/23 20:20 Primary Reason for Your Visit: Acute left parietal stroke Attending Provider: Zhao Estrada Primary Care Provider: Kishore Ricci Consulting Providers: Deshaun Mireles; Catrachita Nevarez; Rere Tipton; Gia England; Kinga Danielle; David Palomo; Trina Kruse; Tevin Healy; Prabhu Reyez; Valentine Davidson; Victorino Martinez; Snow Tang; Sanket Myrick; Garry Segovia; Francisco Bolton; Noemy Fuentes; Tyler Wheatley; Precious Mueller; Marleen Almaguer; Diamond Castillo Instructions Additional Instructions / Restrictions: Continue enoxaparin till INR is therapeutic about 2.5 for 2 days. Follow-up with outpatient speech therapy and evaluation Discharge Orders/Prescriptions Prescriptions: New enoxaparin [Lovenox] 100 mg/mL syringe 100 mg subcut Q12H 5 Days Qty: 10 0RF warfarin [Jantoven] 6 mg Tablet 6 mg PO DAILY@1700 30 Days Qty: 30 1RF Rx Instructions: Keep INR between 2.5-3.5, average 3.0. Hold if INR more than 3.5 rosuvastatin 40 mg tablet 40 mg PO QHS 30 Days Qty: 30 4RF Continued allopurinol 100 mg tablet 100 mg PO DAILY Qty: 90 levothyroxine 100 mcg tablet 100 mcg PO DAILY Qty: 90 levetiracetam [Keppra] 1,000 mg tablet 1,000 mg PO BID amlodipine 10 mg tablet 10 mg PO DAILY oxcarbazepine 150 mg tablet 150 mg PO BID hydrocodone-acetaminophen 5-325 mg tablet 1 tab PO BID PRN (Reason: PAIN ) Patient Comments: PT STATES TAKES NEEDED (03-18-23) metoprolol succinate 25 mg tablet extended release 24 hr 12.5 mg PO DAILY Qty: 90 Probiotic Acidophilus 250 million cell capsule 1,000 mmu cells PO DAILY Gemtesa 75 mg tablet 75 mg PO DAILY memantine 10 mg tablet 10 mg PO BID nortriptyline 50 mg capsule 100 mg PO DAILY metaxalone 400 mg tablet 400 mg PO BID duloxetine 60 mg capsule,delayed release(DR/EC) 60 mg PO DAILY warfarin 4 mg tablet 4 mg PO DAILY Protocol: Dose Management Condition: Wednesday Dose/Route: 4 mg Instruction: 1 x 4 mg tablet Condition: Wednesday Dose/Route: 4 mg Instruction: 1 x 4 mg tablet Condition: Wednesday Dose/Route: 4 mg Instruction: 1 x 4 mg tablet Condition: Wednesday Dose/Route: 4 mg Instruction: 1 x 4 mg tablet Condition: Dose/Route: 4 mg Instruction: 1 x 4 mg tablet Condition: Wednesday Dose/Route: 6 mg Instruction: 1.5 x 4 mg tablets Condition: Wednesday Dose/Route: 4 mg Instruction: 1 x 4 mg tablet Protocol Text: Adjustment Start Date: Wednesday06/11/23 INR Value: 2.6 INR Date: 06/10/23 Recheck Date: 06/25/23 Patient Comments: 2-4 MG nitroglycerin [Nitrostat] 0.4 mg tablet, sublingual 0.4 mg sublingual Q5M PRN (Reason: CHEST PAIN ) Rx Instructions: do not exceed 3 doses per episode Onsn-Ksrq-Gmgc(vit A,C-biotin) 2,500 unit-100 mg-2,500 mcg capsule 1 cap PO DAILY cholecalciferol (vitamin D3) [D3-2000] 50 mcg (2,000 unit) capsule 2,000 unit PO DAILY omeprazole 40 mg capsule,delayed release(DR/EC) 40 mg PO DAILY fluticasone propionate 220 mcg/actuation HFA aerosol inhaler 2 inh inhalation BID flecainide 100 mg tablet 50 mg PO BID Discontinued rosuvastatin [Crestor] 20 mg tablet 20 mg PO DAILY Referrals / Follow Up: Gabriel Leblanc MD [Med Staff - Active Staff] - 07/13/23 11:30 am (For history of mechanical aortic valve and ascending aortic graft. Appointment is with Kishore Durand MD [Primary Care Provider] - 06/24/23 1:40 pm Anil Lopez MD [Non-Staff] - 08/13/23 10:00 am (Appointment is with Dr. Lyle at [facility], [address] [place] [address]) Disposition Disposition (needs filled in before D/C Order can be placed): Home Health Service Charges/Coding Visit Charges Inpatient E&M: 91056 Disch Hosp >30min
--- NOTE | 2023-06-22 10:37 | PHA.DC_ITS ---
Pharmacy [facility] Pharm[facility] Service has performed discharge medication reconciliation and counseling for this patient. The patient's discharge medication list was reviewed for discrepancies and discrepancies were resolved. The patient was counseled on the following discharge medications and changes in medications for homegoing were reviewed. The Reason for Use, instructions for use, and potential side effects were reviewed for all new medications. The patient's questions regarding all of their medications were answered. 1. Warfarin 6 mg PO daily 2. Enoxaparin 100 mg SC BID 3. Rosuvastatin 40 mg PO daily The patient was able to verbally demonstrate an understanding of their discharge medications. Medications at Discharge Home Medications allopurinol 100 mg tablet 100 mg PO DAILY GOUT #90 tabs 02/22/19 levothyroxine 100 mcg tablet 100 mcg PO DAILY THYROID #90 tabs 02/22/19 levetiracetam 1,000 mg tablet (Keppra) 1,000 mg PO BID EPILEPSY 06/06/21 oxcarbazepine 150 mg tablet 150 mg PO BID EPILESPSY 09/12/21 amlodipine 10 mg tablet 10 mg PO DAILY BLOOD PRESSURE 11/25/21 metoprolol succinate 25 mg tablet,extended release 24 hr 12.5 mg PO DAILY HEART #90 tabs 11/25/21 flecainide 100 mg tablet 50 mg PO BID HEART 12/09/21 memantine 10 mg tablet 10 mg PO BID MEMORY 02/22/23 vibegron 75 mg tablet (Gemtesa) 75 mg PO DAILY OVERACTIVE BLADDER 02/22/23 duloxetine 60 mg capsule,delayed release 60 mg PO DAILY DEPRESSION 03/17/23 metaxalone 400 mg tablet 400 mg PO BID MUSCLE SPASMS/PAIN 03/17/23 nitroglycerin 0.4 mg sublingual tablet (Nitrostat) 0.4 mg sublingual Q5M PRN CHEST PAIN 03/17/23 nortriptyline 50 mg capsule 100 mg PO DAILY DEPRESSION 03/17/23 vitamin A 2,500 unit-vit C 100 mg-biotin 2,500 ebg-gpsl-dkazof capsule (Vyae-Yrfi-Dndh (vit A,S-enaquq-Mf-Cu)) 1 cap PO DAILY SUPPLEMENT 03/17/23 warfarin 4 mg tablet 4 mg PO DAILY BLOOD THINNER 03/17/23 hydrocodone-acetaminophen 5-325mg 5mg-325mg 1 tab PO BID PRN PAIN 03/26/23 Lactobacillus acidophilus 250 million cell capsule (Probiotic Acidophilus) 1,000 mmu cells PO DAILY asthma 04/14/23 cholecalciferol (vitamin D3) 50 mcg (2,000 unit) capsule (D3-2000) 2,000 unit PO DAILY vitamin 06/20/23 omeprazole 40 mg capsule,delayed release 40 mg PO DAILY reflux 06/20/23 fluticasone propionate 220 mcg/actuation HFA aerosol inhaler 2 inh inhalation BID asthma 06/21/23 enoxaparin 100 mg/mL subcutaneous syringe (Lovenox) 100 mg subcut Q12H 5 days #10 mL 06/22/23 rosuvastatin 40 mg tablet 40 mg PO QHS 1 month #30 tabs 06/22/23 warfarin 6 mg tablet (Jantoven) 6 mg PO DAILY@1700 30 days #30 tabs 06/22/23
--- NOTE | 2023-06-22 10:37 | CASEMGMT ---
SW went to patient's room. Patient was tearful when SW entered the room. SW introduced self and role at [facility]. SW asked patient what was upsetting her. Patient said is frustrated with her speech. SW explained to patient that if she continues to work with Speech Therapy this will help with her word finding. SW listened and provided emotional support. Patient is active with a Psychologist at [facility] for PTSD. Patient declined PHQ 9 as she knows she has depression. Patient denied wanting to harm herself or anyone else. SW continued to listen to patient express her frustrations. SW offered to make an appt for patient with her Psychologist, but patient said her daughter will do this for her. Patient was appreciative of SW stopping by to talk with her. Maral Mitchell NUTRITION HELPER PAUL[employer]
--- NOTE | 2023-06-22 10:44 | CASEMGMT ---
Addendum entered by Dara Angulo 06/22/23 11:07: AMY VELEZ received call back from [facility] and they are able to accept patient with planned start of care for tomorrow. AMY VELEZ called Jeffrey Hassan and verified cost of Lovenox, $16. AMY VLEEZ in to update patient regarding [facility] start of care and cost of Lovenox. Patient had no further questions or concerns. AMY VELEZ updated discharge plan. Original Note: A list of HHC providers including quality and resource use data and consistent with the patient?s preferred geographical region, medical needs, and insurance network were provided from the [facility] Guide.Patient has order for discharge. Patient will need ST at discharge as well as PT. Patient is also discharging on Lovenox to bridge Coumadin. AMY VELEZ in to discuss HHC at discharge. Patient agreeable to HHC at discharge. A list of HHC providers including quality and resource use data and consistent with the patient?s preferred geographical region, medical needs, and insurance network were provided from the [facility] Guide. Patient prefers [facility]. Patient denied further needs or concerns at discharge. AMY VELEZ called and made referral to [facility], awaiting acceptance. CM will continue to follow this patient and plan for a safe discharge.
[2023-06-22 10:53] VITALS: BP 152/74; PULSE 94; RESP 16; TEMP 36.4; O2SAT 98
--- NOTE | 2023-06-22 11:04 | CASEMGMT ---
Patient politely declined PHQ 9. Maral Mitchell UTILIZATION MANAGEMENT NURSE PAULINE
[2023-06-22] MEDS: Lactobacillis Acidophilus 1 CAP PO (11:05)
[2023-06-22] MEDS: DULoxetine Hcl 60 MG Capsule PO (11:05)
[2023-06-22] MEDS: Potassium Chloride Oral Tablet 20 MEQ PO (11:06)
[2023-06-22] MEDS: Memantine Hydrochloride 10 MG Tablet PO (11:06)
[2023-06-22] MEDS: Metaxalone 800 MG Tablet 400 MG PO (11:06)
[2023-06-22] MEDS: Vibegron 75 MG TABLET PO (11:06)
[2023-06-22] MEDS: Pantoprazole Sodium 40 MG Tablet PO (11:06)
[2023-06-22] MEDS: levETIRAcetam 1,000 MG Tablet 1000 MG PO (11:06)
[2023-06-22] MEDS: Flecainide 100 MG Tablet 50 MG PO (11:07)
[2023-06-22] MEDS: Allopurinol 100 MG Tablet PO (11:08)
[2023-06-22] MEDS: OXcarbazepine 150 MG Tablet PO (11:08)
[2023-06-22] MEDS: Cholecalciferol (VIT D3) 25 MCG TABLET (1,000 UNITS) 50 MCG PO (11:08)
[2023-06-22 11:27] LABS: Anion Gap 5 (5-15); BUN 32 mg/dL (7-18); BUN/Creat Ratio 24.6 RATIO (10-20); Calcium,Total 9.2 mg/dL (8.5-10.1); Chloride 108 mmol/L (98-107); EST Glomerular Filtration Rate 42 mL/min (>60); Est Glom Filt Rate - Afr Amer 51 mL/min (>60); Estimated Creatinine Clearance 40.68 ml/min; Glucose 95 mg/dL (74-106); Potassium 4.4 mmol/L (3.5-5.1); Sodium Level 138 mmol/L (136-145)
[2023-06-22 11:45] VITALS: BMI 39.5
[2023-06-22 14:59] VITALS: BP 146/65; PULSE 83; RESP 16; TEMP 36.6; O2SAT 97
== END 2023-06-22 16:10 | disposition home health service (06) | DRG 65 ==
LOC: ED 20:22 → PCU 20:33
PROVIDERS: Admitting Provider Family Medicine; Emergency Provider Emergency Medicine; PCP Family Medicine; Visit Provider Internal Medicine
DX: I63.9 Cerebral infarction, unspecified (principal); N18.4 Chronic kidney disease, stage 4 (severe); F03.918 Unspecified dementia, unspecified severity, with other behavioral disturbance; C7A.8 Other malignant neuroendocrine tumors; G40.909 Epilepsy, unspecified, not intractable, without status epilepticus; I48.0 Paroxysmal atrial fibrillation; E03.9 Hypothyroidism, unspecified; I12.9 Hypertensive chronic kidney disease with stage 1 through stage 4 chronic kidney disease, or unspecified chronic kidney disease; F32.A Depression, unspecified; E78.5 Hyperlipidemia, unspecified; K21.9 Gastro-esophageal reflux disease without esophagitis; M10.9 Gout, unspecified; F41.9 Anxiety disorder, unspecified; E66.9 Obesity, unspecified; R29.705 NIHSS score 5; Z79.01 Long term (current) use of 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s; Z79.899 Other long term (current) drug therapy; Z68.34 Body mass index [BMI] 34.0-34.9, adult; Z66 Do not resuscitate
CPT/HCPCS: 36415; 70450; 70496; 70498; 71045; 80048; 80053; 80061; 82962; 83036; 83735; 84439; 84443; 84484; 85025; 85610; 85730; 92523; 93005; 93306; 94640; 94668; 94762; 97162; 97166; 97802; 99252; 99283; J7030; Q9967; A4216; G0463

== ENCOUNTER → 2023-06-21 | Outpatient (CLI) | payer MEDICARE, OTHER, SELFPAY ==
[2023-06-21 15:57] LABS: Absolute Neutrophil Count 6.5 X10^3/uL (2.0-7.7); Basophil# 0.04 X10^3/uL; Basophil% 0.5 % (0-1); Eosinophil# 0.19 X10^3/uL; Eosinophils% 2.3 % (0-5); Hematocrit 35.6 % (37-47); Hemoglobin 11.4 g/dL (12.0-15.0); Lymphocyte % 8.6 % (19-41); Mean Corpuscular Hgb 29.6 pg (27.0-32.0); Mean Corpuscular Volume 92.5 fL (81-99); Mean Platelet Vol. 9.1 fl (6.2-12.0); Monocyte# 0.68 X10^3/uL; Monocyte% 8.4 % (0-10); NRBC Flagged by Analyzer 0 % (0-5); Neutrophil % 79.8 % (47-70); Platelet Count 260 K/mm3 (150-450); RBC Distribution Width CV 13.7 % (11.6-14.6); RBC Distribution Width SD 46.1 fl (35.1-43.9); Red Blood Count 3.85 M/mm3 (4.2-5.4); White Blood Count 8.1 K/mm3 (4.4-11.0)
[2023-06-21 16:40] LABS: ALB/GLOB Ratio 1.1 RATIO (0.9-2.4); AST(SGOT) 31 U/L (15-37); Alanine Aminotransfer ALT/SGPT 36 U/L (13-56); Albumin, Serum 3.6 g/dL (3.2-5.0); Alkaline Phosphatase 86 U/L (45-117); Anion Gap 7 (5-15); BUN 30 mg/dL (7-18); BUN/Creat Ratio 20.7 RATIO (10-20); Calcium,Total 9.2 mg/dL (8.5-10.1); Chloride 106 mmol/L (98-107); Creatinine, Serum 1.45 mg/dL (0.55-1.02); EST Glomerular Filtration Rate 37 mL/min (>60); Est Glom Filt Rate - Afr Amer 45 mL/min (>60); Globulin 3.2 g/dL (2.2-4.2); Glucose 100 mg/dL (74-106); LDH 311 U/L (84-246); Potassium 4.1 mmol/L (3.5-5.1); Protein, Total 6.8 g/dL (6.4-8.2); Sodium Level 139 mmol/L (136-145)
[2023-06-25 12:09] LABS: Chromogranin A 942.7 ng/mL (0.0-101.8); Serotonin, Serum < 5 ng/mL (8-217)
== END | disposition home or self-care (01) ==
LOC: LAB 15:45
PROVIDERS: PCP Family Medicine; Visit Provider Internal Medicine Medical Oncology
DX: D3A.8 Other benign neuroendocrine tumors (principal); E66.01 Morbid (severe) obesity due to excess calories
CPT/HCPCS: 36415; 80053; 83615; 84260; 85025; 86316

== ENCOUNTER 2023-07-01 17:00 | Emergency (ER) | payer MEDICARE, OTHER, SELFPAY ==
[2023-07-01 17:00] VITALS: BP 137/63; PULSE 98; RESP 16; TEMP 36.1; O2SAT 98; BMI 38.8
--- NOTE | 2023-07-01 17:33 | EX.ED.DYSGE1 ---
HPI History of Present Illness Chief Complaint: GI Bleed Detail of Chief Complaint: Blood in urine Informant: patient Onset/Context/Timing Onset: Days Narrative Narrative: Patient presents due to concerns for hematuria. Patient was admitted recently for stroke. She had been on Coumadin prior to her stroke and transitioned back onto Lovenox and Coumadin. At time of discharge her INR was elevated at 5.8 and 2 days ago her INR was down in the mid 3 range. Patient had held her Coumadin for couple days and restarted her Coumadin last night. She has completely stopped the Lovenox shots. Patient reports hematuria for the past 3 days or so. She denies dysuria or frequency. Nursing notes indicate GI bleed. When I asked the patient about this she denies, but states her stool did look black yesterday. She states today it was normal in color. She has not noted any bright red blood in her stool. She was admitted twice over the winter with a GI bleed and had a polyp removed. She states at that time they attributed her GI bleed to elevated INR also. 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 intermediate current use of 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 Migraines Near syncope Paroxysmal atrial fibrillation Physical debility Seizure disorder Seizures Spinal stenosis Stage 4 chronic kidney disease Thoracic aortic aneurysm (TAA) Urine retention Home Medications allopurinol 100 mg tablet 100 mg PO DAILY GOUT #90 tabs 02/22/19 [History Last Taken 03/17/23] levothyroxine 100 mcg tablet 100 mcg PO DAILY THYROID #90 tabs 02/22/19 [History Last Taken 03/17/23] levetiracetam 1,000 mg tablet (Keppra) 1,000 mg PO BID EPILEPSY 06/06/21 [History Last Taken 03/17/23] oxcarbazepine 150 mg tablet 150 mg PO BID EPILESPSY 09/12/21 [History Last Taken 03/17/23] amlodipine 10 mg tablet 10 mg PO DAILY BLOOD PRESSURE 11/25/21 [History Last Taken 03/17/23] metoprolol succinate 25 mg tablet,extended release 24 hr 12.5 mg PO DAILY HEART #90 tabs 11/25/21 [History Last Taken 03/17/23] flecainide 100 mg tablet 50 mg PO BID HEART 12/09/21 [History Last Taken 03/17/23] memantine 10 mg tablet 10 mg PO BID MEMORY 02/22/23 [History Last Taken 03/17/23] vibegron 75 mg tablet (Gemtesa) 75 mg PO DAILY OVERACTIVE BLADDER 02/22/23 [History Last Taken 03/17/23] duloxetine 60 mg capsule,delayed release 60 mg PO DAILY DEPRESSION 03/17/23 [History Last Taken 03/17/23] metaxalone 400 mg tablet 400 mg PO BID MUSCLE SPASMS/PAIN 03/17/23 [History Last Taken 03/17/23] nitroglycerin 0.4 mg sublingual tablet (Nitrostat) 0.4 mg sublingual Q5M PRN CHEST PAIN 03/17/23 [History Last Taken Unknown] nortriptyline 50 mg capsule 100 mg PO DAILY DEPRESSION 03/17/23 [History Last Taken 03/17/23] vitamin A 2,500 unit-vit C 100 mg-biotin 2,500 [id number] capsule (Azxi-Apno-Yrta (vit A,X-jegzli-Yf-Cu)) 1 cap PO DAILY SUPPLEMENT 03/17/23 [History Last Taken 03/17/23] warfarin 4 mg tablet 4 mg PO DAILY BLOOD THINNER 03/17/23 [History Last Taken 03/17/23] hydrocodone-acetaminophen 5-325mg 5mg-325mg 1 tab PO BID PRN PAIN 03/26/23 [History Last Taken Unknown] Lactobacillus acidophilus 250 million cell capsule (Probiotic Acidophilus) 1,000 mmu cells PO DAILY asthma 04/14/23 [History Last Taken Unknown] cholecalciferol (vitamin D3) 50 mcg (2,000 unit) capsule (D3-2000) 2,000 unit PO DAILY vitamin 06/20/23 [History Last Taken Unknown] omeprazole 40 mg capsule,delayed release 40 mg PO DAILY reflux 06/20/23 [History Last Taken Unknown] fluticasone propionate 220 mcg/actuation HFA aerosol inhaler 2 inh inhalation BID asthma 06/21/23 [History Last Taken Unknown] rosuvastatin 40 mg tablet 40 mg PO QHS 1 month #30 tabs 06/22/23 [Rx Last Taken Unknown] warfarin 6 mg tablet (Jantoven) 6 mg PO DAILY@1700 30 days #30 tabs 06/22/23 [Rx Last Taken Unknown] enoxaparin 100 mg/mL subcutaneous syringe (Lovenox) 100 mg subcut Q12H 5 days #10 mL 06/25/23 [Rx Last Taken Unknown] Allergy/AdvReac Type Severity Reaction Status Date / Time celecoxib [From Celebrex] Allergy Severe Hives, Verified 07/01/23 17:04 swelling, difficulty breathing Sulfa (Sulfonamide Allergy Severe Hives, Verified 07/01/23 17:04 Antibiotics) swelling, difficulty breathing gemfibrozil AdvReac Intermediate Nausea,myal Verified 07/01/23 17:04 gias Family History Mother CVA (cerebral vascular accident) Breast cancer Hypertension CAD (coronary artery disease) Father Hypertension CAD (coronary artery disease) Surgical History Fracture of ankle, bimalleolar, left, closed H/O chest tube placement (05/07/01) History of appendectomy History of bilateral breast reduction surgery (2008) History of left heart catheterization (12/07/15) History of loop recorder History of lumpectomy (2009) History of open reduction and internal fixation (ORIF) procedure (11/30/19) History of thumb surgery (2004) History of tilt table evaluation (05/21/16) History of total abdominal hysterectomy (1974) Hx of aortic valve replacement, mechanical (04/05/01) Hx of ascending aorta replacement (04/05/01) Social History household members: none housing: condominium Smoking Status: Never smoker alcohol intake: never substance use type: does not use ROS ROS ED Constitutional Constitutional ED: Denies chills or fever(s) Eyes Eyes: Denies discharge from eye(s) ENT ENT ED: Denies discharge from eye(s), rhinorrhea or sore throat Cardiovascular Cardiovascular: Denies chest pain or palpitations Respiratory/Chest Respiratory/Chest: Denies cough or dyspnea Gastrointestinal Gastrointestinal: Denies abdominal pain, diarrhea, nausea or vomiting Genitourinary Genitourinary ED: Reports hematuria; Denies difficulty urinating or dysuria Musculoskeletal Musculoskeletal: Denies back pain or extremity pain Integumentary Denies Abrasions or rash Neurologic Neurologic: Denies headache(s) or weakness Hematologic/Lymphatic Hematologic/Lymphatic: Reports easy bruising and other Allergic/Immunologic Allergic/Immunologic ED: Denies lip swelling or urticaria EXAM Physical Exam Const Vital Signs: 07/01/23 17:00 07/01/23 19:00 07/01/23 20:50 Temperature 97 F L 97.7 F L Temperature Source Temporal Oral Pulse Rate 98 72 70 Respiratory Rate 16 20 H 19 H Blood Pressure 137/63 H 141/55 H 142/80 H Blood Pressure Mean 87 83 100 Pulse Ox 98 95 98 Oxygen Delivery Method Room Air Room Air Room Air Positive well nourished and well developed General Appearance ED: well developed HEENT Reports moist mucous membranes Eyes EOMs intact bilaterally Chest Wall inspection of chest normal and palpation of chest normal Resp normal respiratory effort and clear to auscultation bilaterally Cardio regular rate and regular rhythm Rate: other Other Details: Audible click from her mechanical valve noted. GI non-tender GI Narrative: Bruising noted to the lower abdominal wall. No palpable hematomas. Palpation: soft Extremity Extremity Narrative: Scattered ecchymosis noted to the extremities. Neuro oriented x3 Neuro Narrative: No focal neurologic deficit. Psych mental status grossly normal MDM MDM MDM Narrative Medical decision making narrative: Patient placed on phototypesetting equipment monitor. IV line initiated. Labwork obtained to evaluate for leukocytosis, anemia, and electrolyte derangement. Urinalysis obtained to evaluate for infection/hematuria. History & Record Review Discussion w/independent historian: Patient and Family Lab Data Attestation: I reviewed the patient's lab results. Labs: Laboratory Results - last 24 hr 07/01/23 07/01/23 17:40 18:00 WBC 8.0 RBC 3.55 L Hgb 10.7 L Hct 33.0 L MCV 93.0 MCH 30.1 MCHC 32.4 RDW Std Deviation 45.5 H RDW Coeff of Pravin 13.5 Plt Count 249 MPV 9.7 Immature Gran % (Auto) 0.300 Neut % (Auto) 79.6 H Lymph % (Auto) 8.5 L [place] % (Auto) 8.0 Eos % (Auto) 3.3 Baso % (Auto) 0.3 Absolute Neuts (auto) 6.4 Absolute Lymphs (auto) 0.68 L Nucleated RBC % 0 PT 25.1 H INR 2.3 Sodium 141 Potassium 4.1 Chloride 112 H Carbon Dioxide 25.0 Anion Gap 4 L BUN 28 H Creatinine 1.64 H Estim Creat Clear Calc 31.91 Est GFR (MDRD) Af Amer 39 L Est GFR (MDRD) Non-Af 32 L BUN/Creatinine Ratio 17.1 Glucose 106 Calcium 9.2 Urine Color Red Urine Clarity Turbid Urine pH 6.5 Ur Specific [place] 1.015 Urine Protein 500 H Urine Glucose (UA) Normal Urine Ketones 5 H Urine Occult Blood 250 H Urine Nitrite Negative Urine Bilirubin Negative Urine Urobilinogen Normal Ur Leukocyte Esterase Negative Urine RBC > 100 SEEN Urine WBC 0-5 SEEN Ur Squamous Epith Cells 0 SEEN Urine Bacteria RARE Urine Mucus 0 SEEN Radiography Diagnostic Testing: Clinical Impression(s) from Imaging Studies Abdomen/Pelvis CT 07/01/23 20:05 IMPRESSION: Gallstones without evidence for acute cholecystitis Bilateral renal cysts. No evidence for renal obstruction or ureteral calculus. Intravesical air of uncertain etiology possibly due to recent catheterization however cannot exclude cystitis. Clinical correlation recommended Electronically Signed: Russel Mccoy MD at 21:12 EDT , Treatment and Re-Evaluation :: CBC was normal white count 8.0 with a hemoglobin of 10.7. This is consistent with her prior values. Her INR is 2.3. Chemistry studies reveal a BUN of 28 and creatinine 1.64. This is at the upper end of her normal range. Urinalysis reveals greater than 100 red cells with no epithelial cells and rare bacteria. I spoke with Dr. Cordoba who is seen the patient previously. She did recommend imaging to see if there is evidence of clots in her bladder or any renal abnormality. CT scan reveals bilateral renal cyst. No evidence of renal obstruction or ureteral calculus. Intravascular air of uncertain etiology possibly due to recent catheterization. Test results discussed with the patient and family. Patient is very adamant that she will not stay in the hospital. She states that she will sign out AGAINST MEDICAL ADVICE if needed but she will not stay in the hospital and wanted to ensure her blood counts were stable. Her INR is back down to the therapeutic range. She has to stay on anticoagulation secondary to mechanical aortic valve. I did discuss case with Dr. Cordoba again and she will see the patient next week for follow-up. Patient encouraged to return at any time should her symptoms worsen or she has any concerns. Discharge Plan Triage Chief Complaint: GI Bleed ED Provider: Maribell Jang Dx/Rx/DC Orders Clinical Impression: Hematuria Instructions: ED Hematuria Prescriptions: No Action allopurinol 100 mg tablet 100 mg PO DAILY Qty: 90 levothyroxine 100 mcg tablet 100 mcg PO DAILY Qty: 90 levetiracetam [Keppra] 1,000 mg tablet 1,000 mg PO BID amlodipine 10 mg tablet 10 mg PO DAILY oxcarbazepine 150 mg tablet 150 mg PO BID hydrocodone-acetaminophen 5-325 mg tablet 1 tab PO BID PRN (Reason: PAIN ) Patient Comments: PT STATES TAKES NEEDED (03-18-23) metoprolol succinate 25 mg tablet extended release 24 hr 12.5 mg PO DAILY Qty: 90 Probiotic Acidophilus 250 million cell capsule 1,000 mmu cells PO DAILY Gemtesa 75 mg tablet 75 mg PO DAILY memantine 10 mg tablet 10 mg PO BID nortriptyline 50 mg capsule 100 mg PO DAILY metaxalone 400 mg tablet 400 mg PO BID duloxetine 60 mg capsule,delayed release(DR/EC) 60 mg PO DAILY warfarin 4 mg tablet 4 mg PO DAILY Protocol: Dose Management Condition: Wednesday Dose/Route: 6 mg Instruction: 1 x 6 mg tablet Condition: Wednesday Dose/Route: 4 mg Instruction: 1 x 4 mg tablet Condition: Wednesday Dose/Route: 4 mg Instruction: 1 x 4 mg tablet Condition: Wednesday Dose/Route: 4 mg Instruction: 1 x 4 mg tablet Condition: Dose/Route: 4 mg Instruction: 1 x 4 mg tablet Condition: Wednesday Dose/Route: 4 mg Instruction: 1 x 4 mg tablet Condition: Wednesday Dose/Route: 4 mg Instruction: 1 x 4 mg tablet Protocol Text: Adjustment Start Date: Wednesday06/30/23 INR Value: 3.5 INR Date: 06/30/23 Recheck Date: 07/07/23 Patient Comments: 2-4 MG nitroglycerin [Nitrostat] 0.4 mg tablet, sublingual 0.4 mg sublingual Q5M PRN (Reason: CHEST PAIN ) Rx Instructions: do not exceed 3 doses per episode Nxyp-Zuwd-Psli(vit A,C-biotin) 2,500 unit-100 mg-2,500 mcg capsule 1 cap PO DAILY cholecalciferol (vitamin D3) [D3-2000] 50 mcg (2,000 unit) capsule 2,000 unit PO DAILY omeprazole 40 mg capsule,delayed release(DR/EC) 40 mg PO DAILY fluticasone propionate 220 mcg/actuation HFA aerosol inhaler 2 inh inhalation BID warfarin [Jantoven] 6 mg Tablet 6 mg PO DAILY@1700 30 Days Qty: 30 1RF Protocol: Dose Management Condition: Wednesday Dose/Route: 6 mg Instruction: 1 x 6 mg tablet Condition: Wednesday Dose/Route: 4 mg Instruction: 1 x 4 mg tablet Condition: Wednesday Dose/Route: 4 mg Instruction: 1 x 4 mg tablet Condition: Wednesday Dose/Route: 4 mg Instruction: 1 x 4 mg tablet Condition: Dose/Route: 4 mg Instruction: 1 x 4 mg tablet Condition: Wednesday Dose/Route: 4 mg Instruction: 1 x 4 mg tablet Condition: Wednesday Dose/Route: 4 mg Instruction: 1 x 4 mg tablet Protocol Text: Adjustment Start Date: Wednesday06/30/23 INR Value: 3.5 INR Date: 06/30/23 Recheck Date: 07/07/23 Rx Instructions: Keep INR between 2.5-3.5, average 3.0. Hold if INR more than 3.5 rosuvastatin 40 mg tablet 40 mg PO QHS 30 Days Qty: 30 4RF flecainide 100 mg tablet 50 mg PO BID enoxaparin [Lovenox] 100 mg/mL syringe 100 mg subcut Q12H 5 Days Qty: 10 0RF Primary Care Provider: Kishore Ricci Referrals: Katelin Cordoba MD [Med Staff - Active Staff] - 3-5 Days Kishore Ricci MD [Primary Care Provider] - Disposition Disposition: Home, Self Care
[2023-07-01 17:56] LABS: Absolute Lymphocyte Count 0.68 X10^3/uL (0.83-4.51); Absolute Neutrophil Count 6.4 X10^3/uL (2.0-7.7); Basophil# 0.02 X10^3/uL; Basophil% 0.3 % (0-1); Eosinophil# 0.26 X10^3/uL; Eosinophils% 3.3 % (0-5); Hemoglobin 10.7 g/dL (12.0-15.0); Lymphocyte # 0.68 X10^3/ul (0.83-4.51); Lymphocyte % 8.5 % (19-41); Mean Corp Hgb Conc 32.4 g/dL (32-36); Mean Corpuscular Hgb 30.1 pg (27.0-32.0); Mean Platelet Vol. 9.7 fl (6.2-12.0); Monocyte# 0.64 X10^3/uL; NRBC Flagged by Analyzer 0 % (0-5); Neutrophil # 6.38 X10^3/uL (2.7-7.7); Neutrophil % 79.6 % (47-70); Platelet Count 249 K/mm3 (150-450); RBC Distribution Width CV 13.5 % (11.6-14.6); RBC Distribution Width SD 45.5 fl (35.1-43.9); Red Blood Count 3.55 M/mm3 (4.2-5.4)
[2023-07-01 18:06] LABS: Mucous, Urine 0 SEEN /hpf (<or=2+); Squamous Epithelial Cells - UA 0 SEEN /hpf (5-10)
[2023-07-01 18:06] LABS: International Normalized Ratio 2.3; Prothrombin Time (Protime)PT. 25.1 SECONDS (11.7-14.9)
[2023-07-01 18:09] LABS: Anion Gap 4 (5-15); BUN 28 mg/dL (7-18); BUN/Creat Ratio 17.1 RATIO (10-20); Calcium,Total 9.2 mg/dL (8.5-10.1); Chloride 112 mmol/L (98-107); Creatinine, Serum 1.64 mg/dL (0.55-1.02); EST Glomerular Filtration Rate 32 mL/min (>60); Est Glom Filt Rate - Afr Amer 39 mL/min (>60); Estimated Creatinine Clearance 31.91 ml/min; Glucose 106 mg/dL (74-106); Potassium 4.1 mmol/L (3.5-5.1); Sodium Level 141 mmol/L (136-145)
[2023-07-01 18:16] LABS: Color, Urine Red (Yellow); Glucose, Dipstick Normal (Normal); Ketone-Dipstick 5 mg/dl (Negative); Leukocyte Esterase-Dipstick Negative /ul (Negative); Nitrite-Dipstick Negative (Negative); Occult Blood-Urine 250 /ul (Negative); Protein-Dipstick 500 mg/dl (Negative); Specific Gravity, Urine 1.015 (1.002-1.030); Urine Bilirubin Dipstick Negative (Negative); Urine Clarity Turbid (Clear); Urine Urobilinogen Normal (Normal); Urine pH 6.5 (5.0 - 8.0)
[2023-07-01 18:32] LABS: Red Blood Cells-Urine > 100 SEEN /hpf (0-5); White Blood Cells 0-5 SEEN /hpf (0-5)
[2023-07-01 18:33] LABS: Bacteria RARE /hpf (None Seen)
[2023-07-01 19:00] VITALS: BP 141/55; PULSE 72; RESP 20; TEMP 36.5; O2SAT 95
--- NOTE | 2023-07-01 20:05 | CT_ITS ---
STUDY: CT ABDOMEN AND PELVIS WITHOUT CONTRAST REASON FOR EXAM: Female, 78 years old. hematuria RADIATION DOSAGE (If Supplied By Facility): CTDIvol = ( 20.55 ) mGy, DLP = ( 1052.55 ) mGycm TECHNIQUE: Transaxial images were obtained from the dome of the diaphragm to the symphysis pubis without oral contrast, and without intravenous contrast. Sagittal and coronal images were reconstructed. Individualized dose optimization techniques were used for this CT. COMPARISON: February 22, 2023 FINDINGS: Mild chronic bibasilar interstitial thickening. The visualized portions of the heart are within normal limits. Small hiatal hernia is noted Liver is normal in size.. There is a small hypoattenuated nodule in the right lobe measuring 15 x 8 mm possibly representing small cyst not changed in size since previous study. Bile ducts are nondilated. Tiny calcified stones in the gallbladder without pericholecystic edema. Normal spleen. Normal pancreas. Normal bilateral adrenal glands. No evidence for renal obstruction. There are 2 tiny subcortical cysts in the right kidney and a slightly larger cyst in the left which will not require additional imaging . Normal visualized stomach. Normal small intestine. Diverticular changes of the sigmoid colon without evidence for acute diverticulitis. No evidence for acute appendicitis.. Mild atherosclerotic changes of the aorta without evidence for aneurysm. Normal inferior vena cava. Normal retroperitoneum. Incompletely distended bladder containing air possibly due to recent catheterization although cannot exclude inflammatory disease. Uterus not visualized status post hysterectomy Nonspecific soft tissue thickening in the right anterior pelvic wall. Lumbar spine demonstrates scoliosis and degenerative change. CT/Abdomen/Pelvis without Cont IMPRESSION: Gallstones without evidence for acute cholecystitis Bilateral renal cysts. No evidence for renal obstruction or ureteral calculus. Intravesical air of uncertain etiology possibly due to recent catheterization however cannot exclude cystitis. Clinical correlation recommended Electronically Signed: Russel Mccoy MD at 21:12 EDT ,
[2023-07-01 20:50] VITALS: BP 142/80; PULSE 70; RESP 19; O2SAT 98
[2023-07-01 21:52] VITALS: BP 155/74; PULSE 81; RESP 19; TEMP 36.9; O2SAT 99
== END 2023-07-01 21:53 | disposition home or self-care (01) ==
PROVIDERS: Emergency Provider Emergency Medicine; PCP Family Medicine; Visit Provider Emergency Medicine
DX: R31.9 Hematuria, unspecified (principal); N18.4 Chronic kidney disease, stage 4 (severe); Z86.73 Personal history of transient ischemic attack (TIA), and cerebral infarction without residual deficits
CPT/HCPCS: 74176; 80048; 81001; 85025; 85610; 99284; A4216

== ENCOUNTER → 2023-07-06 | Outpatient (CLI) | payer MEDICARE, OTHER, SELFPAY ==
--- NOTE | 2023-07-06 | CYSPIN_PTH ---
PATIENT: CHANNING CANCHOLA LOC: [facility] U#:[id number] AGE/SX: 78/F ROOM: RE07/06/[address]: Dr. Katelin Cordoba MD : 1945 BED: DIS: 07/06/2023 SPEC #: [id number] RECD: 07/07/23 08:59 STATUS: MEGAN REQ #: [id number] OLEKSANDR: 07/06/23 00:[address]: Katelin Cordoba DEPT: CYTOLOGY RECD BY: Sherri Walters ENTERED: 07/07/23 08:59 SP TYPE: CYSPIN FL OTHR DR: Dr. Kishore Ricci MD Tissues: Urine Procedures: Pap Stain (control) Special Stain Group II Cytospin Fluid HEADER OPERATION: Not noted PRE-OP DIAGNOSIS: Gross hematuria TISSUE SUBMITTED: Urine for cytology DIAGNOSIS CYTOLOGY Urine for cytology (cytospin ): Negative for high grade urothelial carcinoma ([facility]) Linh System Category II. Acute inflammation. See comment. SJ/ 07/07/2023 COMMENT Red blood cells and organisms consistent with bacteria are also noted. Clinical correlation and appropriate follow up are necessary. The Linh System for urine cytology diagnostic categorization was used in the evaluation of this case. CYTOLOGY STUDY Slides are reviewed. CYTOLOGY GROSS Received is 35 ml of dark red cloudy fluid labeled with the patient's name and and designated per the requisition as urine. Submitted for cytology preparation. mr 07/07/2023 TC:2 CPT: 77483
[2023-07-06 16:17] LABS: Hematocrit 28.8 % (37-47); Hemoglobin 9.1 g/dL (12.0-15.0)
[2023-07-06 17:42] LABS: Cytology, Body Fluid / CSF SEE PATHOLOGY REPORT
== END | disposition home or self-care (01) ==
PROVIDERS: PCP Family Medicine; Referring Provider Urology; Visit Provider Urology
DX: R31.0 Gross hematuria (principal)
CPT/HCPCS: 36415; 85014; 85018; 88108; 88313

== ENCOUNTER 2023-07-07 16:25 | Inpatient (IN) | payer MEDICARE, OTHER, SELFPAY ==
[2023-07-07] VITALS (9 sets, daily range): BP systolic 140–159; BP diastolic 59–69; PULSE 68–76; RESP 15–18; TEMP 36.2–36.3; O2SAT 98–100; BMI 40.3; BMI 39.2
[2023-07-07 18:01] LABS: Absolute Lymphocyte Count 0.48 X10^3/uL (0.83-4.51); Absolute Neutrophil Count 5.6 X10^3/uL (2.0-7.7); Basophil# 0.03 X10^3/uL; Basophil% 0.4 % (0-1); Eosinophil# 0.18 X10^3/uL; Eosinophils% 2.6 % (0-5); Hematocrit 28.3 % (37-47); Hemoglobin 9.1 g/dL (12.0-15.0); Lymphocyte # 0.48 X10^3/ul (0.83-4.51); Mean Corp Hgb Conc 32.2 g/dL (32-36); Mean Corpuscular Hgb 29.6 pg (27.0-32.0); Mean Corpuscular Volume 92.2 fL (81-99); Mean Platelet Vol. 9.1 fl (6.2-12.0); Monocyte# 0.53 X10^3/uL; Monocyte% 7.8 % (0-10); NRBC Flagged by Analyzer 0 % (0-5); Neutrophil # 5.56 X10^3/uL (2.7-7.7); Neutrophil % 81.8 % (47-70); POSITIVE DIFFERENTIAL YES; Platelet Count 238 K/mm3 (150-450); RBC Distribution Width CV 13.3 % (11.6-14.6); RBC Distribution Width SD 44.9 fl (35.1-43.9); Red Blood Count 3.07 M/mm3 (4.2-5.4); White Blood Count 6.8 K/mm3 (4.4-11.0)
[2023-07-07 18:03] LABS: Differential Indicated SCAN CRITERIA MET
[2023-07-07 18:11] LABS: Prothrombin Time (Protime)PT. 38.8 SECONDS (11.7-14.9)
[2023-07-07 18:16] LABS: AST(SGOT) 15 U/L (15-37); Alanine Aminotransfer ALT/SGPT 23 U/L (13-56); Albumin, Serum 3.1 g/dL (3.2-5.0); Alkaline Phosphatase 92 U/L (45-117); Anion Gap 4 (5-15); BUN 27 mg/dL (7-18); BUN/Creat Ratio 17.6 RATIO (10-20); Calcium,Total 8.9 mg/dL (8.5-10.1); Chloride 114 mmol/L (98-107); Creatinine, Serum 1.53 mg/dL (0.55-1.02); EST Glomerular Filtration Rate 35 mL/min (>60); Est Glom Filt Rate - Afr Amer 42 mL/min (>60); Estimated Creatinine Clearance 34.93 ml/min; Globulin 3.2 g/dL (2.2-4.2); Glucose 100 mg/dL (74-106); Protein, Total 6.3 g/dL (6.4-8.2); Sodium Level 143 mmol/L (136-145)
[2023-07-07] MEDS: 0.9% Normal Saline (1000mL) 1,000 ML 999 ML IV (18:27)
[2023-07-07 18:37] LABS: Anisocytosis RARE; Macrocytosis RARE; Ovalocyte RARE; Platelet Estimate ADEQUATE (ADEQ); Red Cell Morphology N CHROM NORMAL (NORM C&C)
[2023-07-07 19:17] LABS: Squamous Epithelial Cells - UA 0 SEEN /hpf (5-10)
[2023-07-07 19:41] LABS: Color, Urine Red (Yellow); Glucose, Dipstick Normal (Normal); Ketone-Dipstick Negative (Negative); Leukocyte Esterase-Dipstick Negative /ul (Negative); Nitrite-Dipstick Negative (Negative); Occult Blood-Urine 150 /ul (Negative); Protein-Dipstick 500 mg/dl (Negative); Urine Bilirubin Dipstick Negative (Negative); Urine Clarity Cloudy (Clear); Urine Urobilinogen Normal (Normal)
[2023-07-07 19:50] LABS: Red Blood Cells-Urine > 100 SEEN /hpf (0-5)
[2023-07-07 19:51] LABS: Bacteria 2+ /hpf (None Seen); Mucous, Urine RARE /hpf (<or=2+); White Blood Cells 25-50 SEEN /hpf (0-5)
--- NOTE | 2023-07-07 19:59 | EX.ED.DYSGE1 ---
HPI History of Present Illness Chief Complaint: GI Bleed Narrative Narrative: 78-year-old female sent to the ER for anemia. This is acute on chronic. Patient has had issues with supratherapeutic INR and hematuria as well as history of GI bleed. Patient had a stroke recently and was placed on Coumadin and her INR has been up-and-down. Patient denies taking any black or bloody stools but she does admit to a lot of bright red blood in her urine. She denies abdominal pain or flank pain. No fevers or chills. No nausea or vomiting. She does feel generally weak but she is able to get up and ambulate. Patient has not had any falls. She does feel sleepier than usual and is sleeping a lot per she and her family. 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 [employer] current use of 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 Migraines Near syncope Paroxysmal atrial fibrillation Physical debility Seizure disorder Seizures Spinal stenosis Stage 4 chronic kidney disease Thoracic aortic aneurysm (TAA) Urine retention Home Medications allopurinol 100 mg tablet 100 mg PO DAILY GOUT #90 tabs 02/22/19 [History Last Taken 03/17/23] levothyroxine 100 mcg tablet 100 mcg PO DAILY THYROID #90 tabs 02/22/19 [History Last Taken 03/17/23] levetiracetam 1,000 mg tablet (Keppra) 1,000 mg PO BID EPILEPSY 06/06/21 [History Last Taken 03/17/23] oxcarbazepine 150 mg tablet 150 mg PO BID EPILESPSY 09/12/21 [History Last Taken 03/17/23] amlodipine 10 mg tablet 10 mg PO DAILY BLOOD PRESSURE 11/25/21 [History Last Taken 03/17/23] metoprolol succinate 25 mg tablet,extended release 24 hr 12.5 mg PO DAILY HEART #90 tabs 11/25/21 [History Last Taken 03/17/23] flecainide 100 mg tablet 100 mg PO BID HEART 12/09/21 [History Last Taken 03/17/23] memantine 10 mg tablet 10 mg PO BID MEMORY 02/22/23 [History Last Taken 03/17/23] vibegron 75 mg tablet (Gemtesa) 75 mg PO DAILY OVERACTIVE BLADDER 02/22/23 [History Last Taken 03/17/23] duloxetine 60 mg capsule,delayed release 60 mg PO DAILY DEPRESSION 03/17/23 [History Last Taken 03/17/23] metaxalone 400 mg tablet 400 mg PO BID MUSCLE SPASMS/PAIN 03/17/23 [History Last Taken 03/17/23] nitroglycerin 0.4 mg sublingual tablet (Nitrostat) 0.4 mg sublingual Q5M PRN CHEST PAIN 03/17/23 [History Last Taken Unknown] nortriptyline 50 mg capsule 100 mg PO DAILY DEPRESSION 03/17/23 [History Last Taken 03/17/23] warfarin 4 mg tablet 4 mg PO DAILY BLOOD THINNER 03/17/23 [History Last Taken 03/17/23] hydrocodone-acetaminophen 5-325mg 5mg-325mg 1 tab PO BID PRN PAIN 03/26/23 [History Last Taken Unknown] Lactobacillus acidophilus 250 million cell capsule (Probiotic Acidophilus) 1,000 mmu cells PO DAILY asthma 04/14/23 [History Last Taken Unknown] cholecalciferol (vitamin D3) 50 mcg (2,000 unit) capsule (D3-2000) 2,000 unit PO DAILY vitamin 06/20/23 [History Last Taken Unknown] omeprazole 40 mg capsule,delayed release 40 mg PO DAILY reflux 06/20/23 [History Last Taken Unknown] fluticasone propionate 220 mcg/actuation HFA aerosol inhaler 2 inh inhalation BID asthma 06/21/23 [History Last Taken Unknown] rosuvastatin 40 mg tablet 40 mg PO QHS 1 month #30 tabs 06/22/23 [Rx Last Taken Unknown] warfarin 6 mg tablet (Jantoven) 6 mg PO DAILY@1700 30 days #30 tabs 06/22/23 [Rx Last Taken Unknown] mirtazapine 7.5 mg tablet 3.75 - 7.5 mg PO QHS PRN antidepressant 07/07/23 [History Last Taken Unknown] Allergy/AdvReac Type Severity Reaction Status Date / Time celecoxib [From Celebrex] Allergy Severe Hives, Verified 07/07/23 16:27 swelling, difficulty breathing Sulfa (Sulfonamide Allergy Severe Hives, Verified 07/07/23 16:27 Antibiotics) swelling, difficulty breathing gemfibrozil AdvReac Intermediate Nausea,myal Verified 07/07/23 16:27 gias Family History Mother CVA (cerebral vascular accident) Breast cancer Hypertension CAD (coronary artery disease) Father Hypertension CAD (coronary artery disease) Surgical History Fracture of ankle, bimalleolar, left, closed H/O chest tube placement (05/07/01) History of appendectomy History of bilateral breast reduction surgery (2008) History of left heart catheterization (12/07/15) History of loop recorder History of lumpectomy (2009) History of open reduction and internal fixation (ORIF) procedure (11/30/19) History of thumb surgery (2004) History of tilt table evaluation (05/21/16) History of total abdominal hysterectomy (1974) Hx of aortic valve replacement, mechanical (04/05/01) Hx of ascending aorta replacement (04/05/01) Social History household members: none housing: condominium Smoking Status: Never smoker alcohol intake: never substance use type: does not use ROS ROS ED Constitutional Constitutional ED: Denies chills, fever(s) or sweats Eyes Eyes: Denies blurry vision or change in vision ENT ENT ED: Denies ear pain or sore throat Cardiovascular Cardiovascular: Denies chest pain, palpitations or racing heartbeat Respiratory/Chest Respiratory/Chest: Denies cough, dyspnea or sputum Gastrointestinal Gastrointestinal: Denies abdominal pain, constipation, diarrhea, nausea or vomiting Genitourinary Genitourinary ED: Reports dysuria and hematuria; Denies urinary frequency Musculoskeletal Musculoskeletal: Denies arthralgias, myalgias or neck pain Integumentary Denies abscess, Abrasions or rash Neurologic Neurologic: Denies headache(s), paresthesias or weakness Psychiatric Psychiatric: Denies anxiety, depression, suicidal ideation or suicidal thoughts Endocrine Endocrinology: Denies polydipsia or polyuria EXAM Physical Exam Const Vital Signs: 07/07/23 16:25 07/07/23 17:25 07/07/23 18:00 Temperature 97.2 F L Temperature Source Temporal Pulse Rate 68 69 68 Respiratory Rate 15 18 16 Blood Pressure 140/67 H 146/60 H 140/69 H Blood Pressure Mean 91 88 92 Pulse Ox 100 98 98 Oxygen Delivery Method Room Air Room Air Room Air 07/07/23 19:00 Temperature Temperature Source Pulse Rate 69 Respiratory Rate 18 Blood Pressure 147/59 H Blood Pressure Mean 88 Pulse Ox 98 Oxygen Delivery Method Room Air Positive well nourished General Appearance ED: NAD; Negative for pallor HEENT Reports moist mucous membranes Negative for trauma Eyes PERRL and EOMs intact bilaterally General Eye ED: Yes pale conjunctiva Chest Wall inspection of chest normal Resp normal respiratory effort and clear to auscultation bilaterally Cardio regular rate and regular rhythm GI normal to inspection, nondistended, normoactive bowel sounds, non-tender and non-distended Neuro oriented x3 and CN's II-XII intact bilaterally Sensorium / Orientation: alert Motor Exam: strength 5/5 throughout Psych mental status grossly normal Skin no rashes or lesions noted General Skin Exam: Negative for jaundice or pallor MDM MDM MDM Narrative Medical decision making narrative: Patient presenting with anemia. Differential includes upper GI bleed, lower GI bleed, hematuria, UTI, dehydration, anemia. Patient is not having abdominal pains. She denies nausea or vomiting. She denies black or bloody stools. Hemoccult was performed which was positive however. Patient is supratherapeutic on her INR and it was 6 earlier and now it is 4. CBC was obtained to assess white blood cell count, hemoglobin, platelets. CBC shows normal white blood cell count of 6.8, hemoglobin 9.1, platelets 238. LFTs unremarkable. Renal function near baseline. Urinalysis consistent with UTI as there is greater than 100 RBCs, 25-50 WBCs, 0 squamous epithelial cells and 2+ bacteria on catheter sample. Culture was sent. Patient given a dose of Rocephin. Discussed the case with Dr. Espinoza on-call for GI to cover for possibility of GI bleed with supratherapeutic INR. He was amenable to keeping the patient. I also spoke with Dr. Cordoba who is on-call from urology who will cover for possible issues with hematuria. Case will be discussed with Dr. Aldridge for admission. Impression: 1. Acute blood loss anemia 2. Hematuria 3. UTI 4. Lower GI bleed Lab Data Attestation: I reviewed the patient's lab results. Labs: Laboratory Results - last 24 hr 07/07/23 07/07/23 17:45 19:10 WBC 6.8 RBC 3.07 L Hgb 9.1 L Hct 28.3 L MCV 92.2 MCH 29.6 MCHC 32.2 RDW Std Deviation 44.9 H RDW Coeff of Pravin 13.3 Plt Count 238 MPV 9.1 Immature Gran % (Auto) 0.400 Neut % (Auto) 81.8 H Lymph % (Auto) 7.0 L [place] % (Auto) 7.8 Eos % (Auto) 2.6 Baso % (Auto) 0.4 Absolute Neuts (auto) 5.6 Absolute Lymphs (auto) 0.48 L Nucleated RBC % 0 Differential Comment SEE COMMENT Platelet Estimate ADEQUATE RBC Morphology N CHROM Anisocytosis RARE Macrocytosis RARE Ovalocytes RARE PT 38.8 H INR 4.0 H* Sodium 143 Potassium 4.0 Chloride 114 H Carbon Dioxide 25.0 Anion Gap 4 L BUN 27 H Creatinine 1.53 H Estim Creat Clear Calc 34.93 Est GFR (MDRD) Af Amer 42 L Est GFR (MDRD) Non-Af 35 L BUN/Creatinine Ratio 17.6 Glucose 100 Calcium 8.9 Total Bilirubin 0.40 AST 15 ALT 23 Alkaline Phosphatase 92 Total Protein 6.3 L Albumin 3.1 L Globulin 3.2 Albumin/Globulin Ratio 1.0 Urine Color Red Urine Clarity Cloudy Urine pH 7.0 Ur Specific [place] 1.020 Urine Protein 500 H Urine Glucose (UA) Normal Urine Ketones Negative Urine Occult Blood 150 H Urine Nitrite Negative Urine Bilirubin Negative Urine Urobilinogen Normal Ur Leukocyte Esterase Negative Urine RBC > 100 SEEN Urine WBC 25-50 SEEN Ur Squamous Epith Cells 0 SEEN Urine Bacteria 2+ Urine Mucus RARE Blood Type A NEGATIVE Antibody Screen NEGATIVE Discharge Plan Triage Chief Complaint: GI Bleed ED Provider: Kurt Whittaker Dx/Rx/DC Orders Prescriptions: No Action allopurinol 100 mg tablet 100 mg PO DAILY Qty: 90 levothyroxine 100 mcg tablet 100 mcg PO DAILY Qty: 90 levetiracetam [Keppra] 1,000 mg tablet 1,000 mg PO BID amlodipine 10 mg tablet 10 mg PO DAILY oxcarbazepine 150 mg tablet 150 mg PO BID hydrocodone-acetaminophen 5-325 mg tablet 1 tab PO BID PRN (Reason: PAIN ) Patient Comments: PT STATES TAKES NEEDED (03-18-23) metoprolol succinate 25 mg tablet extended release 24 hr 12.5 mg PO DAILY Qty: 90 Probiotic Acidophilus 250 million cell capsule 1,000 mmu cells PO DAILY Gemtesa 75 mg tablet 75 mg PO DAILY memantine 10 mg tablet 10 mg PO BID nortriptyline 50 mg capsule 100 mg PO DAILY metaxalone 400 mg tablet 400 mg PO BID duloxetine 60 mg capsule,delayed release(DR/EC) 60 mg PO DAILY warfarin 4 mg tablet 4 mg PO DAILY Protocol: Dose Management Condition: Wednesday Dose/Route: 6 mg Instruction: 1 x 6 mg tablet Condition: Wednesday Dose/Route: 4 mg Instruction: 1 x 4 mg tablet Condition: Wednesday Dose/Route: 4 mg Instruction: 1 x 4 mg tablet Condition: Wednesday Dose/Route: 0 mg Instruction: 0 tablets Condition: Dose/Route: 0 mg Instruction: 0 tablets Condition: Wednesday Dose/Route: 4 mg Instruction: 1 x 4 mg tablet Condition: Wednesday Dose/Route: 4 mg Instruction: 1 x 4 mg tablet Protocol Text: Adjustment Start Date: Wednesday07/07/23 INR Value: 6.1 INR Date: 07/07/23 Recheck Date: 07/09/23 Patient Comments: family states shes supposed to take none on 07/07/23 and 07/08/23 and start back on the depending on INR nitroglycerin [Nitrostat] 0.4 mg tablet, sublingual 0.4 mg sublingual Q5M PRN (Reason: CHEST PAIN ) Rx Instructions: do not exceed 3 doses per episode cholecalciferol (vitamin D3) [D3-2000] 50 mcg (2,000 unit) capsule 2,000 unit PO DAILY omeprazole 40 mg capsule,delayed release(DR/EC) 40 mg PO DAILY fluticasone propionate 220 mcg/actuation HFA aerosol inhaler 2 inh inhalation BID warfarin [Jantoven] 6 mg Tablet 6 mg PO DAILY@1700 30 Days Qty: 30 1RF Protocol: Dose Management Condition: Wednesday Dose/Route: 6 mg Instruction: 1 x 6 mg tablet Condition: Wednesday Dose/Route: 4 mg Instruction: 1 x 4 mg tablet Condition: Wednesday Dose/Route: 4 mg Instruction: 1 x 4 mg tablet Condition: Wednesday Dose/Route: 0 mg Instruction: 0 tablets Condition: Dose/Route: 0 mg Instruction: 0 tablets Condition: Wednesday Dose/Route: 4 mg Instruction: 1 x 4 mg tablet Condition: Wednesday Dose/Route: 4 mg Instruction: 1 x 4 mg tablet Protocol Text: Adjustment Start Date: Wednesday07/07/23 INR Value: 6.1 INR Date: 07/07/23 Recheck Date: 07/09/23 Patient Comments: family states shes supposed to take none on 07/07/23 and 07/08/23 and start back on the depending on INR Rx Instructions: Keep INR between 2.5-3.5, average 3.0. Hold if INR more than 3.5 rosuvastatin 40 mg tablet 40 mg PO QHS 30 Days Qty: 30 4RF mirtazapine 7.5 mg tablet 3.75 - 7.5 mg PO QHS PRN (Reason: antidepressant) flecainide 100 mg tablet 100 mg PO BID Primary Care Provider: Kishore Ricci Referrals: Kishore Ricci MD [Primary Care Provider] -
--- NOTE | 2023-07-07 20:01 | HP.PCM.HOS_ITS ---
HPI - General General Date of Admission: 07/07/23 Date of Service: 07/07/23 Chief Complaint: Persistent hematuria HPI Narrative CHANNING CANCHOLA, is a 78 F who presented to [facility] ED on 07/07/2023 with persistent hematuria. Patient seen at bedside in the ED, 2 other family members present. Patient was laying back comfortably in bed and in no acute distress. She was making appropriate eye contact and answering questions appropriately for me. Patient began having hematuria about 1.5 to 2 weeks ago. She was hospitalized at [facility] from 06/19 to 06/22/2023 for an acute CVA. Has a history of mechanical aortic valve replacement in 2001, has been on warfarin since then with goal INR 2.5-3.5. Her INR was subtherapeutic at 1.1 on admission on 06/19. She was on Lovenox shots with an increased dose of warfarin to bridge back to therapeutic INR. She began having hematuria around 06/27 and INR that day was 5.8. She held a few doses and repeat was 3.5 on 06/29. She was evaluated in our ED on 06/[address] abdomen pelvis was fairly benign. Patient was discharged and saw Dr. Cordoba in the office yesterday 07/05. Had labs, UA and urine culture drawn at that time. Plan was for possible cystoscopy in the near future if needed. She was found to have an INR of 6.1 as well as a possible UTI. She continued to have hematuria and came to the ED today for further evaluation. Repeat INR was 4.0 today. Follows with [facility] and states they have been managing her INR checks and warfarin dosing for years. Hemoglobin today was 9.1, stable from 9.1 on 07/05 but down from the 10-11 range from a few weeks ago. ED physician spoke with Dr. Cordoba who was fine with admitting the patient with plan for cystoscopy likely tomorrow. Patient otherwise denies any recent dark or bloody bowel movements. She does have a fairly recent history of GI bleed with acute ischemic colitis and grade B esophagitis w/ non-bleeding duodenal ulcers seen on colonoscopy and EGD with Dr. Espinoza in February 2023. Saw Dr. Espinoza in the office on 06/09, was noted to be doing well, PPI was continued and no other changes were made at that time. Patient denies any recent fevers or chills. Denies any chest pain, shortness of breath, abdominal pain. No other acute concerns. [facility] Medical History (Updated 07/08/23 @ 00:[address] Sav Edmond, ) Anemia Aortic stenosis with bicuspid valve Ascending aortic aneurysm Asthma Atrial fibrillation Chronic pain Congestive heart failure (CHF) CVA (cerebral vascular accident) Dementia Depression Esophageal reflux Essential hypertension GERD (gastroesophageal reflux disease) GI bleed Head injuries History of gout History of venous thrombosis and embolism Hyperparathyroidism Hypertension Hyperuricemia Hypothyroidism Hypothyroidism Kidney stones director long term care current use of 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 Migraines Migraines Myocardial infarct Near syncope Paroxysmal atrial fibrillation Physical debility Seizure disorder Seizures Sleep apnea Spinal stenosis Stage 4 chronic kidney disease Stroke/cerebrovascular accident Thoracic aortic aneurysm (TAA) Urine retention Home Medications allopurinol 100 mg tablet 100 mg PO DAILY GOUT #90 tabs 02/22/19 [History Last Taken 07/07/23] levothyroxine 100 mcg tablet 100 mcg PO DAILY THYROID #90 tabs 02/22/19 [History Last Taken 07/07/23] levetiracetam 1,000 mg tablet (Keppra) 1,000 mg PO BID EPILEPSY 06/06/21 [History Last Taken 07/07/23] oxcarbazepine 150 mg tablet 150 mg PO BID EPILESPSY 09/12/21 [History Last Taken 07/07/23] amlodipine 10 mg tablet 10 mg PO DAILY BLOOD PRESSURE 11/25/21 [History Last Taken 07/07/23] metoprolol succinate 25 mg tablet,extended release 24 hr 12.5 mg PO DAILY HEART #90 tabs 11/25/21 [History Last Taken 07/07/23] flecainide 100 mg tablet 100 mg PO BID HEART 12/09/21 [History Last Taken 07/07/23] memantine 10 mg tablet 10 mg PO BID MEMORY 02/22/23 [History Last Taken 07/07/23] vibegron 75 mg tablet (Gemtesa) 75 mg PO DAILY OVERACTIVE BLADDER 02/22/23 [History Last Taken 07/07/23] duloxetine 60 mg capsule,delayed release 60 mg PO DAILY DEPRESSION 03/17/23 [History Last Taken 07/07/23] metaxalone 400 mg tablet 400 mg PO BID MUSCLE SPASMS/PAIN 03/17/23 [History Last Taken 07/07/23] nitroglycerin 0.4 mg sublingual tablet (Nitrostat) 0.4 mg sublingual Q5M PRN CHEST PAIN 03/17/23 [History Last Taken Unknown] nortriptyline 50 mg capsule 100 mg PO DAILY DEPRESSION 03/17/23 [History Last Taken 07/07/23] warfarin 4 mg tablet 4 mg PO DAILY BLOOD THINNER 03/17/23 [History Last Taken 03/17/23] hydrocodone-acetaminophen 5-325mg 5mg-325mg 1 tab PO BID PRN PAIN 03/26/23 [History Last Taken 07/07/23] Lactobacillus acidophilus 250 million cell capsule (Probiotic Acidophilus) 1,000 mmu cells PO DAILY asthma 04/14/23 [History Last Taken 07/07/23] cholecalciferol (vitamin D3) 50 mcg (2,000 unit) capsule (D3-2000) 2,000 unit PO DAILY vitamin 06/20/23 [History Last Taken 07/07/23] omeprazole 40 mg capsule,delayed release 40 mg PO DAILY reflux 06/20/23 [History Last Taken 07/07/23] fluticasone propionate 220 mcg/actuation HFA aerosol inhaler 2 inh inhalation BID asthma 06/21/23 [History Last Taken 07/07/23] rosuvastatin 40 mg tablet 40 mg PO QHS 1 month #30 tabs 06/22/23 [Rx Last Taken 07/06/23] warfarin 6 mg tablet (Jantoven) 6 mg PO DAILY@1700 30 days #30 tabs 06/22/23 [Rx Last Taken Unknown] mirtazapine 7.5 mg tablet 3.75 - 7.5 mg PO QHS PRN antidepressant 07/07/23 [History Last Taken 07/06/23] Allergy/AdvReac Type Severity Reaction Status Date / Time celecoxib [From Celebrex] Allergy Severe Hives, Verified 07/07/23 16:27 swelling, difficulty breathing Sulfa (Sulfonamide Allergy Severe Hives, Verified 07/07/23 16:27 Antibiotics) swelling, difficulty breathing gemfibrozil AdvReac Intermediate Nausea,myal Verified 07/07/23 16:27 gias Family History Mother CVA (cerebral vascular accident) Breast cancer Hypertension CAD (coronary artery disease) Father Hypertension CAD (coronary artery disease) Surgical History Fracture of ankle, bimalleolar, left, closed H/O chest tube placement (05/07/01) History of appendectomy History of bilateral breast reduction surgery (2008) History of left heart catheterization (12/07/15) History of loop recorder History of lumpectomy (2009) History of open reduction and internal fixation (ORIF) procedure (11/30/19) History of thumb surgery (2004) History of tilt table evaluation (05/21/16) History of total abdominal hysterectomy (1974) Hx of aortic valve replacement, mechanical (04/05/01) Hx of ascending aorta replacement (04/05/01) Social History household members: none housing: [facility] Smoking Status: Never smoker alcohol intake: never substance use type: does not use ROS Constitutional Constitutional: Reports fatigue and weakness; Denies chills or fever(s) Eyes Eyes: Denies change in vision Cardiovascular Cardiovascular: Denies chest pain Respiratory/Chest Respiratory/Chest: Denies cough, shortness of breath at rest, shortness of breath with exertion or wheezing Gastrointestinal Gastrointestinal: Denies abdominal pain, constipation, diarrhea, melena, nausea or vomiting Genitourinary Genitourinary: Reports hematuria; Denies burning urination, dysuria, urinary frequency or urinary urgency Neurologic Neurologic: Denies abnormal speech, confusion, dizziness, focal weakness or headache(s) Vital Signs Vital Signs Vital Signs: 07/07/23 16:25 07/07/23 17:25 07/07/23 18:00 Temperature 97.2 F L Temperature Source Temporal Pulse Rate 68 69 68 Respiratory Rate 15 18 16 Blood Pressure 140/67 H 146/60 H 140/69 H Blood Pressure Mean 91 88 92 Pulse Ox 100 98 98 Oxygen Delivery Method Room Air Room Air Room Air 07/07/23 19:00 Temperature Temperature Source Pulse Rate 69 Respiratory Rate 18 Blood Pressure 147/59 H Blood Pressure Mean 88 Pulse Ox 98 Oxygen Delivery Method Room Air Weight Weight: 106.594 kg Body Mass Index (BMI) 40.3 Physical Exam Const alert, oriented x3 and no apparent distress Constitutional Narrative: Pleasant elderly female, obese, laying comfortably in bed, conversing normally, in no acute distress. General Appearance: cooperative and comfortable HEENT normocephalic, head/scalp atraumatic, hearing grossly normal bilaterally, nasal mucous membranes and turbinates normal and moist oral mucous membranes Eyes PERRL, EOMs intact bilaterally and conjunctivae normal Neck full ROM Chest inspection of chest normal Resp normal respiratory effort, normal air movement, no use of accessory muscles and clear to auscultation bilaterally Cardio regular rate, regular rhythm, no murmurs and peripheral pulses 2+ throughout GI normal to inspection, nondistended, normoactive bowel sounds, soft to palpation, non-tender and non-distended Back/Spine normal ROM Extremity normal to inspection, full ROM and no pedal edema Skin Skin Narrative: Multiple bruises noted throughout the lower abdomen where recent Lovenox shots were being given. Neuro moves all extremities and no focal motor deficits Speech: speech normal Psych mental status grossly normal Results Lab / Micro Data 07/07/23 17:45 07/07/23 17:45 Labs: Laboratory Results - last 24 hr 07/07/23 17:45: WBC 6.8, RBC 3.07 L, Hgb 9.1 L, Hct 28.3 L, MCV 92.2, MCH 29.6, MCHC 32.2, RDW Std Deviation 44.9 H, RDW Coeff of Pravin 13.3, Plt Count 238, MPV 9.1, Immature Gran % (Auto) 0.400, Neut % (Auto) 81.8 H, Lymph % (Auto) 7.0 L, [place] % (Auto) 7.8, Eos % (Auto) 2.6, Baso % (Auto) 0.4, Absolute Neuts (auto) 5.6, Absolute Lymphs (auto) 0.48 L, Nucleated RBC % 0, Differential Comment SEE COMMENT, Platelet Estimate ADEQUATE, RBC Morphology N CHROM, Anisocytosis RARE, Macrocytosis RARE, Ovalocytes RARE, PT 38.8 H, INR 4.0 H*, Sodium 143, Potassium 4.0, Chloride 114 H, Carbon Dioxide 25.0, Anion Gap 4 L, BUN 27 H, Creatinine 1.53 H, Estim Creat Clear Calc 34.93, Est GFR (MDRD) Af Amer 42 L, Est GFR (MDRD) Non-Af 35 L, BUN/Creatinine Ratio 17.6, Glucose 100, Calcium 8.9, Total Bilirubin 0.40, AST 15, ALT 23, Alkaline Phosphatase 92, Total Protein 6.3 L, Albumin 3.1 L, Globulin 3.2, Albumin/Globulin Ratio 1.0, Blood Type A NEGATIVE, Antibody Screen NEGATIVE 07/07/23 19:10: Urine Color Red, Urine Clarity Cloudy, Urine pH 7.0, Ur Specific [place] 1.020, Urine Protein 500 H, Urine Glucose (UA) Normal, Urine Ketones Negative, Urine Occult Blood 150 H, Urine Nitrite Negative, Urine Bilirubin Negative, Urine Urobilinogen Normal, Ur Leukocyte Esterase Negative, Urine RBC > 100 SEEN, Urine WBC 25-50 SEEN, Ur Squamous Epith Cells 0 SEEN, Urine Bacteria 2+, Urine Mucus RARE Micro: Microbiology 07/07/23 18:37 Stool Stool Occult Blood (AGNIESZKA) - Final Occult Blood Positive Assessment & Plan Assessment/Plan (1) Hematuria: (2) Supratherapeutic INR: PLAN: Plan Patient is an 78-year-old female who presented to [facility] ED on 07/07/2023 with persistent hematuria. 1. Hematuria ? Dr. Cordoba with Urology consulted. Suspect supratherapeutic INR is a strong contributor. Possible UTI as noted below may also be contributing. N.p.o. at midnight for possible cystoscopy tomorrow. Holding home warfarin, monitoring daily INR as noted below. 2. Acute blood loss anemia in setting of chronic anemia ? Hemoglobin 9.1 on admit. Also 9.1 on 07/05, but baseline was previously 10-11. Presume secondary to blood loss from hematuria with possible blood loss from the GI tract as well. Holding warfarin and trending daily INR as noted below. Trend daily CBC. Urology and GI consulted. 3. Concern for UTI ? UA showed negative leukocyte esterase and nitrates, 25-50 WBCs, 2+ bacteria. Urine culture ordered. Patient not having classic UTI symptoms, primary concern is hematuria. WBC count normal, no systemic signs of infection. Last urine culture from 02/22/2023 grew pansensitive E. coli. Given 1 dose of ceftriaxone in the ED, will continue ceftriaxone for now. Follow-up urine culture. 4. History of mechanical AVR on warfarin with supratherapeutic INR ? Goal INR 2.5-3.5. INR 4.0 on admit, was 6.1 on 07/05. Given that patient had a subtherapeutic INR on recent admission about 2 to 3 weeks ago and hemoglobin is stable from yesterday, will hold home warfarin but not give any vitamin K at this time. Monitor daily INR. 5. History of recent GI bleed ? See Dr. Espinoza's office note from 06/09 for further details. In short, had GI bleed in February 2023. Had EGD and colonoscopy both done at that time. Colonoscopy findings were consistent with ischemic colitis. EGD showed reflux e sophagitis with multiple duodenal ulcers with no recent signs of bleeding. Did have positive occult stool in the ED on 07/06. Patient however denies any dark or bloody bowel movements recently. CT abdomen pelvis without contrast on 06/30 was limited, no significant bowel findings noted. GI consulted for further recommendations. 6. History of recent CVA with mild dysarthria and debility ? Hospitalized here from 06/19-06/21. Neurology evaluated on 06/20, see that note for further details. Presented at that time with slurred speech and aphasia, which have significantly improved. No motor symptoms but is fairly weak and debilitated at baseline. Has had home health care services since discharge on 06/21. PT/OT/case management consulted. Patient would prefer to go home with home health care again on discharge. 7. History of neuroendocrine tumor ? Follows with Dr. Espinoza, see office note from 06/09 for further details. Continue outpatient monitoring. 8. 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 Follows Dr. Espinoza. Recent stool positive for C. difficile toxin but negative for antigen, no need for antibiotic therapy. Chronic medical conditions: ? Obesity: BMI 39 on admit. Complicated hospital course, care and prognosis. ? Paroxysmal A-fib, bradyarrhythmia: Follows with [facility]. Stable. Continue home Toprol and flecainide. ? Gout: Continue home allopurinol. ? Hypertension: Stable. Continue home amlodipine and Toprol. ? Overactive bladder: Continue home med. ? Seizure disorder: Continue home Keppra and oxcarbazepine. ? Hypothyroidism: Continue home Synthroid. ? Mood disorder: Stable. Continue home duloxetine, nortriptyline, mirtazapine at night as needed. ? Cognitive impairment: Stable. Continue home memantine. ? Hyperlipidemia: Continue home statin. ? Chronic pain: Continue home hydrocodone?acetaminophen twice daily as needed. ? Asthma: Stable on room air. Continue home fluticasone. DVT prophylaxis: SCDs CODE STATUS: DNR CCA, DNI Expected disposition: Home with home health care, 2 to 3 days Total clinical time spent by myself addressing the patient's medical issues, reviewing all the data, and collaborating with patient's care team: 75 minutes. Charges/Coding Visit Charges Inpatient E&M: 35475 Init Hosp L3
[2023-07-07] MEDS: Acetaminophen 500 MG Tablet 1000 MG PO (20:54)
[2023-07-07] MEDS: Ceftriaxone 1 GM/50 ML BAG IV (20:54)
[2023-07-07] MEDS: levETIRAcetam 1,000 MG Tablet 1000 MG PO (23:20)
[2023-07-07] MEDS: Flecainide 100 MG Tablet PO (23:21)
[2023-07-07] MEDS: Atorvastatin Calcium 80 MG Tablet PO (23:21)
[2023-07-07] MEDS: OXcarbazepine 150 MG Tablet PO (23:21)
[2023-07-07] MEDS: Memantine Hydrochloride 10 MG Tablet PO (23:21)
[2023-07-07] MEDS: Nortriptyline 25 MG Capsule 100 MG PO (23:21)
[2023-07-08] VITALS (9 sets, daily range): BP systolic 112–138; BP diastolic 52–59; PULSE 60–89; RESP 15–18; TEMP 36.3–36.8; O2SAT 95–98
[2023-07-08] MEDS: Levothyroxine 100 MCG Tablet PO (06:46)
[2023-07-08] MEDS: Budesonide Respules 0.5 MG/2 ML AMPUL.NEB. INHALATION ×2 (07:09→19:40)
[2023-07-08 07:25] LABS: Hematocrit 25.4 % (37-47); Hemoglobin 8.1 g/dL (12.0-15.0); Mean Corp Hgb Conc 31.9 g/dL (32-36); Mean Corpuscular Hgb 29.5 pg (27.0-32.0); Mean Corpuscular Volume 92.4 fL (81-99); Mean Platelet Vol. 9.7 fl (6.2-12.0); Platelet Count 227 K/mm3 (150-450); RBC Distribution Width CV 13.2 % (11.6-14.6); RBC Distribution Width SD 44.6 fl (35.1-43.9); Red Blood Count 2.75 M/mm3 (4.2-5.4); White Blood Count 5.4 K/mm3 (4.4-11.0)
[2023-07-08 07:41] LABS: Anion Gap 7 (5-15); BUN 25 mg/dL (7-18); BUN/Creat Ratio 18.5 RATIO (10-20); Calcium,Total 8.3 mg/dL (8.5-10.1); Chloride 113 mmol/L (98-107); Creatinine, Serum 1.35 mg/dL (0.55-1.02); EST Glomerular Filtration Rate 40 mL/min (>60); Est Glom Filt Rate - Afr Amer 49 mL/min (>60); Estimated Creatinine Clearance 38.96 ml/min; Glucose 93 mg/dL (74-106); Potassium 3.7 mmol/L (3.5-5.1); Sodium Level 146 mmol/L (136-145)
[2023-07-08 08:09] LABS: Prothrombin Time (Protime)PT. 40.1 SECONDS (11.7-14.9)
[2023-07-08 08:14] LABS: International Normalized Ratio 4.2
--- NOTE | 2023-07-08 10:00 | EKG12_ITS ---
Test Reason : Blood Pressure : / mmHG Vent. Rate : 065 BPM Atrial Rate : 065 BPM P-R Int : 212 ms QRS Dur : 144 ms QT Int : 450 ms P-R-T Axes : 087 -12 168 degrees QTc Int : 468 ms Sinus rhythm with 1st degree A-V block Left ventricular hypertrophy with QRS widening ( R in aVL , Inocencio product ) T wave abnormality, consider lateral ischemia Abnormal ECG No previous ECGs available Confirmed by DOLLY CELAYA, DAVONTE ([id number]), staff editor NOELLE MONTANEZ ([id number]) on 07/12/2023 2:03:55 PM Referred By: JACQUELINE Confirmed By:DAVONTE ALBERTO MD
--- NOTE | 2023-07-08 10:07 | PCM.PN.HOSP ---
Reason for Visit Reason for Visit: Diagnoses Hematuria, unspecified (07/07/23) Abnormal coagulation profile (07/07/23) Objective Data Objective Data Vital Signs: Vital Signs Temp Pulse Resp BP Pulse Ox O2 Del Method 97.6 F L 64 18 134/55 H 98 Room Air 07/08/23 08:55 07/08/23 08:55 07/08/23 08:55 07/08/23 08:55 07/08/23 08:55 07/08/23 08:55 Oxygen Delivery Method Room Air Weight: 228 lb 6.382 oz Body Mass Index (BMI) 39.2 Intake & Output: Intake and Output for Last 24 Hours 07/06/23 07/07/23 07/08/23 23:59 23:59 23:59 Intake Total 1050 / 1050 Balance 1050 / 1050 Lab / Micro Data 07/08/23 05:45 07/08/23 05:45 Labs: Laboratory Results - last 24 hr 07/07/23 17:45: WBC 6.8, RBC 3.07 L, Hgb 9.1 L, Hct 28.3 L, MCV 92.2, MCH 29.6, MCHC 32.2, RDW Std Deviation 44.9 H, RDW Coeff of Pravin 13.3, Plt Count 238, MPV 9.1, Immature Gran % (Auto) 0.400, Neut % (Auto) 81.8 H, Lymph % (Auto) 7.0 L, [place] % (Auto) 7.8, Eos % (Auto) 2.6, Baso % (Auto) 0.4, Absolute Neuts (auto) 5.6, Absolute Lymphs (auto) 0.48 L, Nucleated RBC % 0, Differential Comment SEE COMMENT, Platelet Estimate ADEQUATE, RBC Morphology N CHROM, Anisocytosis RARE, Macrocytosis RARE, Ovalocytes RARE, PT 38.8 H, INR 4.0 H*, Sodium 143, Potassium 4.0, Chloride 114 H, Carbon Dioxide 25.0, Anion Gap 4 L, BUN 27 H, Creatinine 1.53 H, Estim Creat Clear Calc 34.93, Est GFR (MDRD) Af Amer 42 L, Est GFR (MDRD) Non-Af 35 L, BUN/Creatinine Ratio 17.6, Glucose 100, Calcium 8.9, Total Bilirubin 0.40, AST 15, ALT 23, Alkaline Phosphatase 92, Total Protein 6.3 L, Albumin 3.1 L, Globulin 3.2, Albumin/Globulin Ratio 1.0, Blood Type A NEGATIVE, Antibody Screen NEGATIVE 07/07/23 19:10: Urine Color Red, Urine Clarity Cloudy, Urine pH 7.0, Ur Specific [place] 1.020, Urine Protein 500 H, Urine Glucose (UA) Normal, Urine Ketones Negative, Urine Occult Blood 150 H, Urine Nitrite Negative, Urine Bilirubin Negative, Urine Urobilinogen Normal, Ur Leukocyte Esterase Negative, Urine RBC > 100 SEEN, Urine WBC 25-50 SEEN, Ur Squamous Epith Cells 0 SEEN, Urine Bacteria 2+, Urine Mucus RARE 07/08/23 05:45: WBC 5.4, RBC 2.75 L, Hgb 8.1 L, Hct 25.4 L, MCV 92.4, MCH 29.5, MCHC 31.9 L, RDW Std Deviation 44.6 H, RDW Coeff of Pravin 13.2, Plt Count 227, MPV 9.7, PT 40.1 H, INR 4.2 H*, Sodium 146 H, Potassium 3.7, Chloride 113 H, Carbon Dioxide 26.0, Anion Gap 7, BUN 25 H, Creatinine 1.35 H, Estim Creat Clear Calc 38.96, Est GFR (MDRD) Af Amer 49 L, Est GFR (MDRD) Non-Af 40 L, BUN/Creatinine Ratio 18.5, Glucose 93, Calcium 8.3 L Micro: Microbiology 07/07/23 18:37 Stool Stool Occult Blood (AGNIESZKA) - Final Occult Blood Positive Physical Exam Narrative Seen and examined Patient is having intermittent hematuria since 06/27 and her INR was 5.8. Denies any burning micturition but hematuria along the. She stated she also had stool mixed with blood but denies any bright red on tissue paper. She was seen in ED on 06/25 for hematuria and benign CT abdomen pelvis. She was discharged to see urologist. She saw urologist Dr. Katelin Cordoba on 07/05 and had urine culture in the office. She was then sent to ED and admitted. No fever Physical exam General: Alert, Oriented x3, Cooperative HEENT: Atraumatic, PERRLA, EOMI, Normocephalic Oral: No Gingival or Mucosal Lesions/ Ulcerations Neck: Supple, No JVD, Negative Carotid Bruits Chest wall/Lungs: Air entry diminished in bilateral lung bases. No crepitation/rhonchi Cardiovascular: Regular rate. Mechanical click sound of artificial aortic valve. No appreciable regurg murmur. Abdomen: Bowel Sounds Present, Soft, Non Tender, Non-Distended : Hematuria. RN trying to insert triple-lumen catheter. No dysuria. No renal angle tenderness. No suprapubic tenderness. Extremities: No edema, Capillary Refill Less than 3 Seconds Skin: Bruises in the abdomen from Lovenox shot Musculoskeletal: No Tenderness to Palpation of Joints or Extremities Neurological: Cranial nerves II-XII grossly intact, DTR 2+/4. No acute focal neurological deficit. Psych/Mental Status: Normal Affect, Appropriate. Assessment & Plan Assessment/Plan (1) Hematuria: (2) Supratherapeutic INR: PLAN: Plan Patient is having intermittent hematuria since 06/27 and her INR was 5.8. Denies any burning micturition. She stated she also had stool mixed with blood but denies any bright red on tissue paper. She was seen in ED on 06/25 for hematuria and benign CT abdomen pelvis. She was discharged to see urologist. She saw urologist Dr. Katelin Cordoba on 07/05 and had urine culture in the office. She was then sent to ED and admitted. 1. Hematuria most likely due to supratherapeutic INR from warfarin ? Dr. Cordoba with Urology consulted. Suspect supratherapeutic INR is a strong contributor. Triple-lumen catheter and CBI to clear hematuria. Plan for cystoscopy later on after UTI clears Holding home warfarin, monitoring daily INR as noted below. 2. Acute blood loss anemia in setting of chronic anemia ? Hemoglobin 9.1 on admit. Also 9.1 on 07/05, but baseline was previously 10-11. Presume secondary to blood loss from hematuria with possible blood loss from the GI tract as well. Holding warfarin and trending daily INR as noted below. Trend daily CBC. Urology and GI consulted. 3. Enterococcus and Klebsiella UTI: Urine culture from neurologist office shows Enterococcus and Klebsiella resistant to ceftriaxone but sensitive to Cipro. ID consult requested patient also had mechanical AV valve. Blood cultures ordered as precautionary measure. UA showed negative leukocyte esterase and nitrates, 25-50 WBCs, 2+ bacteria. Urine culture ordered. Patient not having classic UTI symptoms, primary concern is hematuria. No leukocytosis and no systemic signs of infection. As Cipro does not have good in situ sensitivity and only moderate activity against enterococci, not first drug of choice therefore selected Unasyn to cover both Enterococcus and Klebsiella. Last urine culture from 02/22/2023 grew pansensitive E. coli. Given 1 dose of ceftriaxone in the ED, will continue ceftriaxone for now. Follow-up urine culture. 4. History of mechanical AVR on warfarin with supratherapeutic INR ? Goal INR 2.5-3.5. INR 4.0 on admit, was 6.1 on 07/05. Given that patient had a subtherapeutic INR on recent admission about 2 to 3 weeks ago and hemoglobin is stable from yesterday, will hold home warfarin but not give any vitamin K at this time. Monitor daily INR. 5. History of recent GI bleed ? See Dr. Espinoza's office note from 06/09 for further details. In short, had GI bleed in February 2023. Had EGD and colonoscopy both done at that time. Colonoscopy findings were consistent with ischemic colitis. EGD showed reflux esophagitis with multiple duodenal ulcers with no recent signs of bleeding. Did have positive occult stool in the ED on 07/06. Patient however denies any dark or bloody bowel movements recently. CT abdomen pelvis without contrast on 06/30 was limited, no significant bowel findings noted. GI consulted for further recommendations. 6. History of recent CVA with mild dysarthria and debility ? Hospitalized here from 06/19-06/21. Neurology evaluated on 06/20, see that note for further details. Presented at that time with slurred speech and aphasia, which have significantly improved. No motor symptoms but is fairly weak and debilitated at baseline. Has had home health care services since discharge on 06/21. PT/OT/case management consulted. Patient would prefer to go home with home health care again on discharge. 7. History of neuroendocrine tumor ? Follows with Dr. Espinoza, see office note from 06/09 for further details. Continue outpatient monitoring. 8. 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 Follows Dr. Espinoza. Recent stool positive for C. difficile toxin but negative for antigen, no need for antibiotic therapy. Chronic medical conditions: ? Obesity: BMI 39 on admit. Complicated hospital course, care and prognosis. ? Paroxysmal A-fib, bradyarrhythmia: Follows with [facility]. Stable. Continue home Toprol and flecainide. ? Gout: Continue home allopurinol. ? Hypertension: Stable. Continue home amlodipine and Toprol. ? Overactive bladder: Continue home med. ? Seizure disorder: Continue home Keppra and oxcarbazepine. ? Hypothyroidism: Continue home Synthroid. ? Mood disorder: Continue home duloxetine, nortriptyline, mirtazapine at night as needed. ? Cognitive impairment: Continue home memantine. ? Hyperlipidemia: Continue home statin. ? Chronic pain: Continue home hydrocodone?acetaminophen twice daily as needed. ? Asthma: Stable on room air. Continue home fluticasone. DVT prophylaxis: SCDs CODE STATUS: DNR CCA, DNI Total time of the visit including total time spent in counseling or coordination of care, (more than 50% of the total time, spent in obtaining medical information from nurses and other ancillary care providers,explaining to the patient about labs, imaging, diagnosis and management of active complex medical conditions), complex presentation of hematuria and lower GI bleed and UTI, complex past history of mechanical AV valve, review of labs and imaging, discussion with the consultants ID and urologist is 40 minutes. Charges/Coding Visit Charges Inpatient E&M: 96193 Subs Hosp L3
--- NOTE | 2023-07-08 10:23 | CON.PCM_ITS ---
Assessment & Plan Assessment/Plan (1) Hematuria: (2) Supratherapeutic INR: (3) Acute UTI: PLAN: Plan change antibiotics manage anticoagulation 24Fr santos with manual irrigation as needed will need cystoscopy, prefer to wait until infection clears if the hematuria clears, this can be done as an out patient supportive care HPI Consult Data Date of Consult: 07/08/23 HPI Narrative Reason for Consultation: Gross hematuria HPI Narrative: CHANNING CANCHOLA, is a 78 F who is admitted with blood loss anemia, gross hematuria and blood from the GI tract. She has been started on warfarin for anticoagulation and her INR has been elevated on and off over the last few weeks. She was seen in the office with intermittent gross hematuria a few days ago. Her culture returned this morning with Klebsiella and Enterococcus resistant to ceftriaxone, sensitive to Cipro. She was admitted with after the findings of anemia on her outpatient laboratory studies. She has no complaints of pain, nausea, vomiting. She is still having gross hematuria but is not passing clots. [facility] Medical History Anemia Aortic stenosis with bicuspid valve Ascending aortic aneurysm Asthma Atrial fibrillation Chronic pain Congestive heart failure (CHF) CVA (cerebral vascular accident) Dementia Depression Esophageal reflux Essential hypertension GERD (gastroesophageal reflux disease) GI bleed Head injuries History of gout History of venous thrombosis and embolism Hyperparathyroidism Hypertension Hyperuricemia Hypothyroidism Hypothyroidism Kidney stones senior care current use of 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 Migraines Migraines Myocardial infarct Near syncope Paroxysmal atrial fibrillation Physical debility Seizure disorder Seizures Sleep apnea Spinal stenosis Stage 4 chronic kidney disease Stroke/cerebrovascular accident Thoracic aortic aneurysm (TAA) Urine retention Home Medications allopurinol 100 mg tablet 100 mg PO DAILY GOUT #90 tabs 02/22/19 [History Last Taken 07/07/23] levothyroxine 100 mcg tablet 100 mcg PO DAILY THYROID #90 tabs 02/22/19 [History Last Taken 07/07/23] levetiracetam 1,000 mg tablet (Keppra) 1,000 mg PO BID EPILEPSY 06/06/21 [History Last Taken 07/07/23] oxcarbazepine 150 mg tablet 150 mg PO BID EPILESPSY 09/12/21 [History Last Taken 07/07/23] amlodipine 10 mg tablet 10 mg PO DAILY BLOOD PRESSURE 11/25/21 [History Last Taken 07/07/23] metoprolol succinate 25 mg tablet,extended release 24 hr 12.5 mg PO DAILY HEART #90 tabs 11/25/21 [History Last Taken 07/07/23] flecainide 100 mg tablet 100 mg PO BID HEART 12/09/21 [History Last Taken 07/07/23] memantine 10 mg tablet 10 mg PO BID MEMORY 02/22/23 [History Last Taken 07/07/23] vibegron 75 mg tablet (Gemtesa) 75 mg PO DAILY OVERACTIVE BLADDER 02/22/23 [History Last Taken 07/07/23] duloxetine 60 mg capsule,delayed release 60 mg PO DAILY DEPRESSION 03/17/23 [History Last Taken 07/07/23] metaxalone 400 mg tablet 400 mg PO BID MUSCLE SPASMS/PAIN 03/17/23 [History Last Taken 07/07/23] nitroglycerin 0.4 mg sublingual tablet (Nitrostat) 0.4 mg sublingual Q5M PRN CHEST PAIN 03/17/23 [History Last Taken Unknown] nortriptyline 50 mg capsule 100 mg PO DAILY DEPRESSION 03/17/23 [History Last Taken 07/07/23] warfarin 4 mg tablet 4 mg PO DAILY BLOOD THINNER 03/17/23 [History Last Taken 03/17/23] hydrocodone-acetaminophen 5-325mg 5mg-325mg 1 tab PO BID PRN PAIN 03/26/23 [History Last Taken 07/07/23] Lactobacillus acidophilus 250 million cell capsule (Probiotic Acidophilus) 1,000 mmu cells PO DAILY asthma 04/14/23 [History Last Taken 07/07/23] cholecalciferol (vitamin D3) 50 mcg (2,000 unit) capsule (D3-2000) 2,000 unit PO DAILY vitamin 06/20/23 [History Last Taken 07/07/23] omeprazole 40 mg capsule,delayed release 40 mg PO DAILY reflux 06/20/23 [History Last Taken 07/07/23] fluticasone propionate 220 mcg/actuation HFA aerosol inhaler 2 inh inhalation BID asthma 06/21/23 [History Last Taken 07/07/23] rosuvastatin 40 mg tablet 40 mg PO QHS 1 month #30 tabs 06/22/23 [Rx Last Taken 07/06/23] warfarin 6 mg tablet ([place]) 6 mg PO DAILY@1700 30 days #30 tabs 06/22/23 [Rx Last Taken Unknown] mirtazapine 7.5 mg tablet 3.75 - 7.5 mg PO QHS PRN antidepressant 07/07/23 [History Last Taken 07/06/23] Allergy/AdvReac Type Severity Reaction Status Date / Time celecoxib [From Celebrex] Allergy Severe Hives, Verified 07/07/23 16:27 swelling, difficulty breathing Sulfa (Sulfonamide Allergy Severe Hives, Verified 07/07/23 16:27 Antibiotics) swelling, difficulty breathing gemfibrozil AdvReac Intermediate Nausea,myal Verified 07/07/23 16:27 gias Family History Mother CVA (cerebral vascular accident) Breast cancer Hypertension CAD (coronary artery disease) Father Hypertension CAD (coronary artery disease) Surgical History Fracture of ankle, bimalleolar, left, closed H/O chest tube placement (05/07/01) History of appendectomy History of bilateral breast reduction surgery (2008) History of left heart catheterization (12/07/15) History of loop recorder History of lumpectomy (2009) History of open reduction and internal fixation (ORIF) procedure (11/30/19) History of thumb surgery (2004) History of tilt table evaluation (05/21/16) History of total abdominal hysterectomy (1974) Hx of aortic valve replacement, mechanical (04/05/01) Hx of ascending aorta replacement (04/05/01) Social History household members: none housing: condominium Smoking Status: Never smoker alcohol intake: never substance use type: does not use ROS Constitutional Constitutional: Reports systems reviewed and no addt'l complaints, except as documented; Denies anorexia, body ache(s), chills, fever(s) or weight loss Eyes Eyes: Reports systems reviewed and no addt'l complaints, except as documented ENT HEENT: Reports systems reviewed and no addt'l complaints, except as documented Cardiovascular Cardiovascular: Denies abdominal pain, chest pain, dizziness or dyspnea Respiratory/Chest Respiratory/Chest: Denies chest congestion, chest tightness, cough, dyspnea or inability to speak Gastrointestinal Gastrointestinal: Denies abdominal pain, nausea or vomiting Genitourinary Genitourinary: Reports hematuria; Denies dysuria, low back pain, urinary hesitancy or urinary urgency Musculoskeletal Musculoskeletal: Reports systems reviewed and no addt'l complaints, except as documented Integumentary Integumentary: Reports systems reviewed and no addt'l complaints, except as documented Neurologic Neurologic: Reports systems reviewed and no addt'l complaints, except as documented Psychiatric Psychiatric: Reports systems reviewed and no addt'l complaints, except as documented Endocrine Endocrinology: Reports systems reviewed and no addt'l complaints, except as documented Hematologic/Lymphatic Hematologic/Lymphatic: Reports anemia and easy bleeding Allergic/Immunologic Allergic/Immunologic: Reports systems reviewed and no addt'l complaints, except as documented Physical Exam Const alert, oriented x3 and no apparent distress General Appearance: cooperative, comfortable and well kempt HEENT normocephalic, head/scalp atraumatic, hearing grossly normal bilaterally, external ears normal, external nose normal and moist oral mucous membranes Eyes General Eye: normal appearance of both eyes Neck supple General: normal visual inspection Chest inspection of chest normal Chest: symmetrical chest wall rise Resp normal respiratory effort, normal air movement, no retractions and no use of accessory muscles Effort and Inspection: able to speak in complete sentences and symmetric chest movement Cardio regular rate GI soft to palpation, non-tender and non-distended no CVA tenderness Narrative: no santos catheter at present. no urine at bedside Back/Spine no CVA tenderness Extremity normal to inspection Skin no rashes or lesions noted, no jaundice, no petechiae and no mottling Neuro oriented x3, CN's II-XII intact bilaterally and moves all extremities Psych mental status grossly normal, thought process normal and cooperative Lab / Micro Data 07/08/23 05:45 07/08/23 05:45 Labs: Laboratory Results - last 24 hr 07/07/23 17:45: WBC 6.8, RBC 3.07 L, Hgb 9.1 L, Hct 28.3 L, MCV 92.2, MCH 29.6, MCHC 32.2, RDW Std Deviation 44.9 H, RDW Coeff of Pravin 13.3, Plt Count 238, MPV 9.1, Immature Gran % (Auto) 0.400, Neut % (Auto) 81.8 H, Lymph % (Auto) 7.0 L, [place] % (Auto) 7.8, Eos % (Auto) 2.6, Baso % (Auto) 0.4, Absolute Neuts (auto) 5.6, Absolute Lymphs (auto) 0.48 L, Nucleated RBC % 0, Differential Comment SEE COMMENT, Platelet Estimate ADEQUATE, RBC Morphology N CHROM, Anisocytosis RARE, Macrocytosis RARE, Ovalocytes RARE, PT 38.8 H, INR 4.0 H*, Sodium 143, Potassium 4.0, Chloride 114 H, Carbon Dioxide 25.0, Anion Gap 4 L, BUN 27 H, Creatinine 1.53 H, Estim Creat Clear Calc 34.93, Est GFR (MDRD) Af Amer 42 L, Est GFR (MDRD) Non-Af 35 L, BUN/Creatinine Ratio 17.6, Glucose 100, Calcium 8.9, Total Bilirubin 0.40, AST 15, ALT 23, Alkaline Phosphatase 92, Total Protein 6.3 L, Albumin 3.1 L, Globulin 3.2, Albumin/Globulin Ratio 1.0, Blood Type A NEGATIVE, Antibody Screen NEGATIVE 07/07/23 19:10: Urine Color Red, Urine Clarity Cloudy, Urine pH 7.0, Ur Specific [place] 1.020, Urine Protein 500 H, Urine Glucose (UA) Normal, Urine Ketones Negative, Urine Occult Blood 150 H, Urine Nitrite Negative, Urine Bilirubin Negative, Urine Urobilinogen Normal, Ur Leukocyte Esterase Negative, Urine RBC > 100 SEEN, Urine WBC 25-50 SEEN, Ur Squamous Epith Cells 0 SEEN, Urine Bacteria 2+, Urine Mucus RARE 07/08/23 05:45: WBC 5.4, RBC 2.75 L, Hgb 8.1 L, Hct 25.4 L, MCV 92.4, MCH 29.5, MCHC 31.9 L, RDW Std Deviation 44.6 H, RDW Coeff of Pravin 13.2, Plt Count 227, MPV 9.7, PT 40.1 H, INR 4.2 H*, Sodium 146 H, Potassium 3.7, Chloride 113 H, Carbon Dioxide 26.0, Anion Gap 7, BUN 25 H, Creatinine 1.35 H, Estim Creat Clear Calc 38.96, Est GFR (MDRD) Af Amer 49 L, Est GFR (MDRD) Non-Af 40 L, BUN/Creatinine Ratio 18.5, Glucose 93, Calcium 8.3 L Micro: Microbiology 07/07/23 18:37 Stool Stool Occult Blood (AGNIESZKA) - Final Occult Blood Positive
[2023-07-08] MEDS: Metoprolol(XL)Succ 25 MG Tablet 12.5 MG PO (10:31)
[2023-07-08] MEDS: Pantoprazole Sodium 40 MG Tablet PO (10:32)
[2023-07-08] MEDS: Allopurinol 100 MG Tablet PO (10:32)
[2023-07-08] MEDS: amLODIPine 10 MG Tablet PO (10:32)
[2023-07-08] MEDS: Vibegron 75 MG TABLET PO (10:33)
[2023-07-08] MEDS: Lactobacillis Acidophilus 1 CAP PO (10:33)
[2023-07-08] MEDS: Flecainide 100 MG Tablet PO ×2 (10:33→21:25)
[2023-07-08] MEDS: Memantine Hydrochloride 10 MG Tablet PO ×2 (10:33→21:25)
[2023-07-08] MEDS: DULoxetine Hcl 60 MG Capsule PO (10:33)
[2023-07-08] MEDS: levETIRAcetam 1,000 MG Tablet 1000 MG PO ×2 (10:33→21:25)
[2023-07-08] MEDS: OXcarbazepine 150 MG Tablet PO ×2 (10:34→21:25)
--- NOTE | 2023-07-08 11:47 | CHAPLAIN ---
Type of Pastoral Visit _x__ Initial Visit ___ Follow-up Visit ___ On-call Visit ___ General Patient Visit ___ Spiritual Assessment ___ Family Conference ___ Bereavement ___ Rapid Response ___ Code Blue ___ Other (describe below) Pastoral Care Referral From _x__ Patient ___ Family ___ Nurse ___ Physician ___ General Technician ___ Staff Writer ___ Other (describe below) Sacrament/Intervention _x__ Active listening ___ Anointing ___ Jehovah'S Witness ___ Bereavement ___ Communion ___ Oralia exploration ___ _x__ Life review _x__ Prayer ___ Reconciliation ___ Sacrament of Sick _x__ Supportive presence ___ Wedding ___ Other (describe below) Pastoral Comments patient acknowledges that she has returned so soon to the hospital and has been seen by this burn center nurse; pt describes her current health situation and the progress she is making from her previous stroke; pt is open to conversation about life and how she is handling these situations; pt refers to her oralia practices and hopes to regain ability to remember her prayers; pt welcomes supportive presence and prayers
[2023-07-08 12:36] LABS: Hematocrit 27.5 % (37-47); Hemoglobin 8.7 g/dL (12.0-15.0)
--- NOTE | 2023-07-08 12:45 | CASEMGMT ---
Readmission Note: Index: 06/19 to 06/22/23. Dx: CVA/TIA Readmission: 07/07/23. Dx: Hematuria, Melena, Supratherapeutic INR Pt arrives to [facility] ED with c/o hematuria x 1.5 - 2 weeks FLAP CURER. The pt has a history of mechanical aortic valve replacement in 2001 and has been on warfarin since then with goal INR 2.5-3.5. The pt INR was subtherapeutic at 1.1 on admission on 06/19. The pt was on Lovenox with an increased dose of warfarin to bridge back to therapeutic INR. The pt began having hematuria around 06/27 and INR that day was 5.8. The pt then held a few doses and repeat was 3.5 on 06/29. The pt came into the ED on 06/30 for Hematuria. Pt received a CT ABD/Pelvis that was benign. The pt was discharged and subsequently saw her PCP on 07/05 and was advised to come into the hospital for further evaluation. This RN CM to pt room at this time for chart review. The pt states that she was unaware of the low fat/ low cholesterol diet recommendations given at time of discharge. Pt states that I wouldn't have followed that anyway. Pt states that she is agreeable to the 2,000 mg Na restriction recommended. Pt states that she is not on the Lovenox anymore. Pt states that her Warfarin is currently being held. Pt states that she was able to get her Rosuvastatin after DC. As stated above, the pt was able to be seen by her PCP as advised. Pt states that is what brought me back into the hospital. Pt does have other f/u appt scheduled for the future including an appt with Dr. Leblanc on 07/12. Pt states that she is aware of this. Pt is active with [facility] HH (PT/ST/SN/HAIRPIECE STYLIST). Pt states that she has been seen by these skilled professionals and states that she has been happy with the care that they have provided. Moving forward, the pt states that once she is medically ready, she would like to DC home with the continuation of HHC. Pt denies SNF placement/ needs at this time. Pt 6-click is 22. CM to follow for safe DC home from [facility]. PLAN: DC home with the continuation of [facility] HHC (PT/ST/SN/HAIRPIECE STYLIST).
[2023-07-08] MEDS: Ampicillin/Sulbactam 3 GM in 0.9% Normal Saline (100mL MB+) 100 ML IV ×2 (12:54→22:07)
[2023-07-08] MEDS: 0.9% Saline Lock 10 ML Syringe IV (12:56)
--- NOTE | 2023-07-08 13:20 | CASEMGMT ---
AMY VELEZ NOTE: Call placed to Rita @ [facility]. She is aware pt has been readmitted to [facility] and notified that [facility] is to [facility] discharge. CHRISTIANO order has been placed. James BAUTISTA RN CM
[2023-07-08 17:27] LABS: Hematocrit 26.8 % (37-47); Hemoglobin 8.6 g/dL (12.0-15.0)
[2023-07-08] MEDS: Atorvastatin Calcium 80 MG Tablet PO (21:25)
[2023-07-08] MEDS: Nortriptyline 25 MG Capsule 100 MG PO (21:25)
[2023-07-08 22:58] LABS: Hematocrit 24.2 % (37-47); Hemoglobin 7.6 g/dL (12.0-15.0)
[2023-07-09 03:08] VITALS: BP 146/58; PULSE 72; RESP 16; TEMP 36.8; O2SAT 96
[2023-07-09] MEDS: Ampicillin/Sulbactam 3 GM in 0.9% Normal Saline (100mL MB+) 100 ML IV ×3 (05:07→22:01)
[2023-07-09] MEDS: Levothyroxine 100 MCG Tablet PO (05:07)
[2023-07-09 06:00] LABS: Absolute Lymphocyte Count 0.62 X10^3/uL (0.83-4.51); Absolute Neutrophil Count 3.7 X10^3/uL (2.0-7.7); Basophil# 0.02 X10^3/uL; Basophil% 0.4 % (0-1); Eosinophil# 0.23 X10^3/uL; Eosinophils% 4.4 % (0-5); Hematocrit 24.2 % (37-47); Hemoglobin 7.8 g/dL (12.0-15.0); Lymphocyte # 0.62 X10^3/ul (0.83-4.51); Mean Corp Hgb Conc 32.2 g/dL (32-36); Mean Corpuscular Hgb 29.9 pg (27.0-32.0); Mean Corpuscular Volume 92.7 fL (81-99); Mean Platelet Vol. 9.3 fl (6.2-12.0); Monocyte# 0.54 X10^3/uL; Monocyte% 10.4 % (0-10); NRBC Flagged by Analyzer 0 % (0-5); Neutrophil # 3.74 X10^3/uL (2.7-7.7); Neutrophil % 72.4 % (47-70); Platelet Count 204 K/mm3 (150-450); RBC Distribution Width CV 13.2 % (11.6-14.6); RBC Distribution Width SD 45.1 fl (35.1-43.9); Red Blood Count 2.61 M/mm3 (4.2-5.4); White Blood Count 5.2 K/mm3 (4.4-11.0)
[2023-07-09 06:13] LABS: International Normalized Ratio 3.2; Prothrombin Time (Protime)PT. 32.1 SECONDS (11.7-14.9)
[2023-07-09 06:43] LABS: Anion Gap 4 (5-15); BUN 24 mg/dL (7-18); BUN/Creat Ratio 18.6 RATIO (10-20); Calcium,Total 8.4 mg/dL (8.5-10.1); Chloride 115 mmol/L (98-107); Creatinine, Serum 1.29 mg/dL (0.55-1.02); EST Glomerular Filtration Rate 42 mL/min (>60); Est Glom Filt Rate - Afr Amer 51 mL/min (>60); Estimated Creatinine Clearance 40.78 ml/min; Glucose 92 mg/dL (74-106); Potassium 3.8 mmol/L (3.5-5.1); Sodium Level 144 mmol/L (136-145)
[2023-07-09 07:08] VITALS: PULSE 74; RESP 16; O2SAT 96
[2023-07-09] MEDS: Budesonide Respules 0.5 MG/2 ML AMPUL.NEB. INHALATION ×2 (07:08→19:13)
[2023-07-09 07:52] VITALS: PULSE 66
[2023-07-09] MEDS: levETIRAcetam 1,000 MG Tablet 1000 MG PO ×2 (07:52→21:59)
[2023-07-09] MEDS: Lactobacillis Acidophilus 1 CAP PO (07:52)
[2023-07-09] MEDS: Metoprolol(XL)Succ 25 MG Tablet 12.5 MG PO (07:52)
[2023-07-09] MEDS: Memantine Hydrochloride 10 MG Tablet PO ×2 (07:52→21:59)
[2023-07-09] MEDS: DULoxetine Hcl 60 MG Capsule PO (07:52)
[2023-07-09] MEDS: OXcarbazepine 150 MG Tablet PO ×2 (07:52→21:59)
[2023-07-09] MEDS: Pantoprazole Sodium 40 MG Tablet PO (07:52)
[2023-07-09] MEDS: Allopurinol 100 MG Tablet PO (07:52)
[2023-07-09] MEDS: Vibegron 75 MG TABLET PO (07:52)
[2023-07-09] MEDS: Flecainide 100 MG Tablet PO ×2 (07:52→21:59)
[2023-07-09] MEDS: amLODIPine 10 MG Tablet PO (07:52)
--- NOTE | 2023-07-09 13:06 | CON.PCM.ID_ITS ---
Assessment & Plan Assessment/Plan (1) Acute UTI: PLAN: Ucx here with 80-100k enterococcus-like and klebs. Cont unasyn. Plan on short course po abx at discharge. Bcx here are ngtd. Will follow, thank you HPI Consult Data Date of Consult: 07/09/23 HPI Narrative Reason for Consultation: uti HPI Narrative: CHANNING CANCHOLA, is a 78 F with h/o stroke and aortic valve replacement who presented 07/06 with 2 weeks progressive hematuria. C/o some weakness. No dysuria, no abd pain, no fever, no recent abx. Saw urologist, UA/Ucx done, sent to hospital. On unasyn here, feeling ok, santos in place. Full ROS performed and neg except as noted above. 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 Migraines Migraines Myocardial infarct Near syncope Paroxysmal atrial fibrillation Physical debility Seizure disorder Seizures Sleep apnea Spinal stenosis Stage 4 chronic kidney disease Stroke/cerebrovascular accident Thoracic aortic aneurysm (TAA) Urine retention Home Medications allopurinol 100 mg tablet 100 mg PO DAILY GOUT #90 tabs 02/22/19 [History Last Taken 07/07/23] levothyroxine 100 mcg tablet 100 mcg PO DAILY THYROID #90 tabs 02/22/19 [History Last Taken 07/07/23] levetiracetam 1,000 mg tablet (Keppra) 1,000 mg PO BID EPILEPSY 06/06/21 [History Last Taken 07/07/23] oxcarbazepine 150 mg tablet 150 mg PO BID EPILESPSY 09/12/21 [History Last Taken 07/07/23] amlodipine 10 mg tablet 10 mg PO DAILY BLOOD PRESSURE 11/25/21 [History Last Taken 07/07/23] metoprolol succinate 25 mg tablet,extended release 24 hr 12.5 mg PO DAILY HEART #90 tabs 11/25/21 [History Last Taken 07/07/23] flecainide 100 mg tablet 100 mg PO BID HEART 12/09/21 [History Last Taken 07/07/23] memantine 10 mg tablet 10 mg PO BID MEMORY 02/22/23 [History Last Taken 07/07/23] vibegron 75 mg tablet (Gemtesa) 75 mg PO DAILY OVERACTIVE BLADDER 02/22/23 [History Last Taken 07/07/23] duloxetine 60 mg capsule,delayed release 60 mg PO DAILY DEPRESSION 03/17/23 [History Last Taken 07/07/23] metaxalone 400 mg tablet 400 mg PO BID MUSCLE SPASMS/PAIN 03/17/23 [History Last Taken 07/07/23] nitroglycerin 0.4 mg sublingual tablet (Nitrostat) 0.4 mg sublingual Q5M PRN ANICETO ST PAIN 03/17/23 [History Last Taken Unknown] nortriptyline 50 mg capsule 100 mg PO DAILY DEPRESSION 03/17/23 [History Last Taken 07/07/23] warfarin 4 mg tablet 4 mg PO DAILY BLOOD THINNER 03/17/23 [History Last Taken 03/17/23] hydrocodone-acetaminophen 5-325mg 5mg-325mg 1 tab PO BID PRN PAIN 03/26/23 [History Last Taken 07/07/23] Lactobacillus acidophilus 250 million cell capsule (Probiotic Acidophilus) 1,000 mmu cells PO DAILY asthma 04/14/23 [History Last Taken 07/07/23] cholecalciferol (vitamin D3) 50 mcg (2,000 unit) capsule (D3-2000) 2,000 unit PO DAILY vitamin 06/20/23 [History Last Taken 07/07/23] omeprazole 40 mg capsule,delayed release 40 mg PO DAILY reflux 06/20/23 [History Last Taken 07/07/23] fluticasone propionate 220 mcg/actuation HFA aerosol inhaler 2 inh inhalation BID asthma 06/21/23 [History Last Taken 07/07/23] rosuvastatin 40 mg tablet 40 mg PO QHS 1 month #30 tabs 06/22/23 [Rx Last Taken 07/06/23] warfarin 6 mg tablet (Jantoven) 6 mg PO DAILY@1700 30 days #30 tabs 06/22/23 [Rx Last Taken Unknown] mirtazapine 7.5 mg tablet 3.75 - 7.5 mg PO QHS PRN antidepressant 07/07/23 [History Last Taken 07/06/23] Allergy/AdvReac Type Severity Reaction Status Date / Time celecoxib [From Celebrex] Allergy Severe Hives, Verified 07/07/23 16:27 swelling, difficulty breathing Sulfa (Sulfonamide Allergy Severe Hives, Verified 07/07/23 16:27 Antibiotics) swelling, difficulty breathing gemfibrozil AdvReac Intermediate Nausea,myal Verified 07/07/23 16:27 gias Family History Mother CVA (cerebral vascular accident) Breast cancer Hypertension CAD (coronary artery disease) Father Hypertension CAD (coronary artery disease) Surgical History Fracture of ankle, bimalleolar, left, closed H/O chest tube placement (05/07/01) History of appendectomy History of bilateral breast reduction surgery (2008) History of left heart catheterization (12/07/15) History of loop recorder History of lumpectomy (2009) History of open reduction and internal fixation (ORIF) procedure (11/30/19) History of thumb surgery (2004) History of tilt table evaluation (05/21/16) History of total abdominal hysterectomy (1974) Hx of aortic valve replacement, mechanical (04/05/01) Hx of ascending aorta replacement (04/05/01) Social History household members: none housing: condominium Smoking Status: Never smoker alcohol intake: never substance use type: does not use Physical Exam Const alert and no apparent distress General Appearance: cooperative HEENT normocephalic Eyes PERRL and EOMs intact bilaterally Neck supple and No nodes Resp normal air movement and clear to auscultation bilaterally Cardio regular rate, regular rhythm and no murmurs GI soft to palpation, non-tender and non-distended Extremity General Extremity: edema Skin no rashes or lesions noted Neuro CN's II-XII intact bilaterally Lab / Micro Data Attestation: I reviewed the patient's lab results. 07/09/23 05:20 07/09/23 05:20 Labs: Laboratory Results - last 24 hr 07/08/23 16:54: Hgb 8.6 L, Hct 26.8 L 07/08/23 22:45: Hgb 7.6 L, Hct 24.2 L 07/09/23 05:20: WBC 5.2, RBC 2.61 L, Hgb 7.8 L, Hct 24.2 L, MCV 92.7, MCH 29.9, MCHC 32.2, RDW Std Deviation 45.1 H, RDW Coeff of Pravin 13.2, Plt Count 204, MPV 9.3, Immature Gran % (Auto) 0.400, Neut % (Auto) 72.4 H, Lymph % (Auto) 12.0 L, [place] % (Auto) 10.4 H, Eos % (Auto) 4.4, Baso % (Auto) 0.4, Absolute Neuts (auto) 3.7, Absolute Lymphs (auto) 0.62 L, Nucleated RBC % 0, PT 32.1 H, INR 3.2, Sodium 144, Potassium 3.8, Chloride 115 H, Carbon Dioxide 25.0, Anion Gap 4 L, BUN 24 H, Creatinine 1.29 H, Estim Creat Clear Calc 40.78, Est GFR (MDRD) Af Amer 51 L, Est GFR (MDRD) Non-Af 42 L, BUN/Creatinine Ratio 18.6, Glucose 92, Calcium 8.4 L Micro: Microbiology 07/07/23 19:10 Urine Catheter - Catheter Urine Culture - Preliminary Klebsiella pneumoniae sp pneum GPC Poss Enterococcus sp
[2023-07-09 14:00] VITALS: BP 114/46; PULSE 69; RESP 15; TEMP 36.7; O2SAT 97
--- NOTE | 2023-07-09 15:19 | CASEMGMT ---
AMY VELEZ NOTE: Rita @ [facility] made aware anticipate pt will discharge home over the weekend. She states CHRISTIANO is slated for Wednesday. James BAUTISTA RN, CM
--- NOTE | 2023-07-09 15:29 | PCM.PN.HOSP ---
Reason for Visit Reason for Visit: Diagnoses Urinary tract infection, site not specified (07/07/23) Hematuria, unspecified (07/07/23) Abnormal coagulation profile (07/07/23) Objective Data Objective Data Vital Signs: Vital Signs Temp Pulse Resp BP Pulse Ox O2 Del Method 98.0 F 69 15 114/46 L 97 Room Air 07/09/23 14:00 07/09/23 14:00 07/09/23 14:00 07/09/23 14:00 07/09/23 14:00 07/09/23 14:00 Oxygen Delivery Method Room Air Weight: 228 lb 6.382 oz Body Mass Index (BMI) 39.2 Intake & Output: Intake and Output for Last 24 Hours 07/07/23 07/08/23 07/09/23 23:59 23:59 23:59 Intake Total 1050 / 1050 474 / 474 224 / 224 Output Total 525 / 725 800 / 800 Balance 1050 / 1050 -51 / -251 -576 / -576 Lab / Micro Data 07/09/23 05:20 07/09/23 05:20 Labs: Laboratory Results - last 24 hr 07/08/23 16:54: Hgb 8.6 L, Hct 26.8 L 07/08/23 22:45: Hgb 7.6 L, Hct 24.2 L 07/09/23 05:20: WBC 5.2, RBC 2.61 L, Hgb 7.8 L, Hct 24.2 L, MCV 92.7, MCH 29.9, MCHC 32.2, RDW Std Deviation 45.1 H, RDW Coeff of Pravin 13.2, Plt Count 204, MPV 9.3, Immature Gran % (Auto) 0.400, Neut % (Auto) 72.4 H, Lymph % (Auto) 12.0 L, [place] % (Auto) 10.4 H, Eos % (Auto) 4.4, Baso % (Auto) 0.4, Absolute Neuts (auto) 3.7, Absolute Lymphs (auto) 0.62 L, Nucleated RBC % 0, PT 32.1 H, INR 3.2, Sodium 144, Potassium 3.8, Chloride 115 H, Carbon Dioxide 25.0, Anion Gap 4 L, BUN 24 H, Creatinine 1.29 H, Estim Creat Clear Calc 40.78, Est GFR (MDRD) Af Amer 51 L, Est GFR (MDRD) Non-Af 42 L, BUN/Creatinine Ratio 18.6, Glucose 92, Calcium 8.4 L Micro: Microbiology 07/07/23 19:10 Urine Catheter - Catheter Urine Culture - Preliminary Klebsiella pneumoniae sp pneum GPC Poss Enterococcus sp 07/07/23 18:37 Stool Stool Occult Blood (AGNIESZKA) - Final Occult Blood Positive Physical Exam Narrative Seen and examined Urine catheter tubing looks blood mixed with urine slowly clearing up.Hemoglobin 7.8. No significant bleeding symptoms Patient is having intermittent hematuria since 06/27 and her INR was 5.8. Denies any burning micturition but hematuria along the. She stated she also had stool mixed with blood but denies any bright red on tissue paper. She was seen in ED on 06/25 for hematuria and benign CT abdomen pelvis. She was discharged to see urologist. She saw urologist Dr. Katelin Cordoba on 07/05 and had urine culture in the office. She was then sent to ED and admitted. No fever Physical exam General: Alert, Oriented x3, Cooperative HEENT: Atraumatic, PERRLA, EOMI, Normocephalic Oral: No Gingival or Mucosal Lesions/ Ulcerations Neck: Supple, No JVD, Negative Carotid Bruits Chest wall/Lungs: Air entry diminished in bilateral lung bases. No crepitation/rhonchi Cardiovascular: Regular rate. Mechanical click sound of artificial aortic valve. No appreciable regurg murmur. Abdomen: Bowel Sounds Present, Soft, Non Tender, Non-Distended : Hematuria. Triple-lumen catheter, blood stained with urine in Ellison tube. No dysuria. No renal angle tenderness. No suprapubic tenderness. Extremities: No edema, Capillary Refill Less than 3 Seconds Skin: Bruises in the abdomen from Lovenox shot Musculoskeletal: No Tenderness to Palpation of Joints or Extremities Neurological: Cranial nerves II-XII grossly intact, DTR 2+/4. No acute focal neurological deficit. Psych/Mental Status: Normal Affect, Appropriate. Assessment & Plan Assessment/Plan (1) Hematuria: (2) Supratherapeutic INR: PLAN: Plan Patient is having intermittent hematuria since 06/27 and her INR was 5.8. Denies any burning micturition. She stated she also had stool mixed with blood but denies any bright red on tissue paper. She was seen in ED on 06/25 for hematuria and benign CT abdomen pelvis. She was discharged to see urologist. She saw urologist Dr. Katelin Cordoba on 07/05 and had urine culture in the office. She was then sent to ED and admitted. 1. Hematuria most likely due to supratherapeutic INR from warfarin ? Dr. Cordoba with Urology consulted. Suspect supratherapeutic INR is a strong contributor. Triple-lumen catheter and CBI to clear hematuria. Plan for cystoscopy later on after UTI clears Holding home warfarin, monitoring daily INR as noted below. 07/08: No plan for cystoscopy continue IV antibiotic. 2. Acute blood loss anemia in setting of chronic anemia ? Hemoglobin 9.1 on admit. Also 9.1 on 07/05, but baseline was previously 10-11. Presume secondary to blood loss from hematuria with possible blood loss from the GI tract as well. Holding warfarin and trending daily INR as noted below. Trend daily CBC. Urology and GI consulted. 07/08: Hemoglobin stabilized around 8 g. IV iron infusion ordered 3. Enterococcus and Klebsiella UTI: Urine culture from 07/[address] Katelin Cordboa office shows Enterococcus and Klebsiella, more than 1000 colonies resistant to ceftriaxone but sensitive to Cipro. ID consult requested patient also had mechanical AV valve. Blood cultures ordered as precautionary measure. UA showed negative leukocyte esterase and nitrates, 25-50 WBCs, 2+ bacteria. Urine culture ordered. Patient not having classic UTI symptoms, primary concern is hematuria. No leukocytosis and no systemic signs of infection. As Cipro does not have good in situ sensitivity and only moderate activity against enterococci, not first drug of choice therefore selected Unasyn to cover both Enterococcus and Klebsiella. Last urine culture from 02/22/2023 grew pansensitive E. coli. Given 1 dose of ceftriaxone in the ED, will continue ceftriaxone for now. Follow-up urine culture. 07/08: Urine culture from 07/06 growing Klebsiella pneumoniae and GPC possible Enterococcus 80,000-100,000 colonies. Continue IV Zosyn. ID consult appreciated. 4. History of mechanical AVR on warfarin with supratherapeutic INR ? Goal INR 2.5-3.5. INR 4.0 on admit, was 6.1 on 07/05. Given that patient had a subtherapeutic INR on recent admission about 2 to 3 weeks ago and hemoglobin is stable from yesterday, will hold home warfarin but not give any vitamin K at this time. Monitor daily INR. 07/08 INR is still high at 3.5. Continue holding warfarin and hematuria has not completely stopped. 5. History of recent GI bleed ? See Dr. Espinoza's office note from 06/09 for further details. In short, had GI bleed in February 2023. Had EGD and colonoscopy both done at that time. Colonoscopy findings were consistent with ischemic colitis. EGD showed reflux esophagitis with multiple duodenal ulcers with no recent signs of bleeding. Did have positive occult stool in the ED on 07/06. Patient however denies any dark or bloody bowel movements recently. CT abdomen pelvis without contrast on 06/30 was limited, no significant bowel findings noted. GI consulted for further recommendations. 6. History of recent CVA with mild dysarthria and debility ? Hospitalized here from 06/19-06/21. Neurology evaluated on 06/20, see that note for further details. Presented at that time with slurred speech and aphasia, which have significantly improved. No motor symptoms but is fairly weak and debilitated at baseline. Has had home health care services since discharge on 06/21. PT/OT/case management consulted. Patient would prefer to go home with home health care again on discharge. 7. History of neuroendocrine tumor ? Follows with Dr. Espinoza, see office note from 06/09 for further details. Continue outpatient monitoring. 8. 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 Follows Dr. Espinoza. Recent stool positive for C. difficile toxin but negative for antigen, no need for antibiotic therapy. Chronic medical conditions: ? Obesity: BMI 39 on admit. Complicated hospital course, care and prognosis. ? Paroxysmal A-fib, bradyarrhythmia: Follows with [facility]. Stable. Continue home Toprol and flecainide. ? Gout: Continue home allopurinol. ? Hypertension: Stable. Continue home amlodipine and Toprol. ? Overactive bladder: Continue home med. ? Seizure disorder: Continue home Keppra and oxcarbazepine. ? Hypothyroidism: Continue home Synthroid. ? Mood disorder: Continue home duloxetine, nortriptyline, mirtazapine at night as needed. ? Cognitive impairment: Continue home memantine. ? Hyperlipidemia: Continue home statin. ? Chronic pain: Continue home hydrocodone?acetaminophen twice daily as needed. ? Asthma: Stable on room air. Continue home fluticasone. DVT prophylaxis: SCDs CODE STATUS: DNR CCA, DNI Total time of the visit including total time spent in counseling or coordination of care, (more than 50% of the total time, spent in obtaining medical information from nurses and other ancillary care providers,explaining to the patient about labs, imaging, diagnosis and management of active complex medical conditions), complex presentation of hematuria and lower GI bleed and UTI, complex past history of mechanical AV valve, review of labs and imaging, discussion with the consultants ID and urologist is 40 minutes. Charges/Coding Visit Charges Inpatient E&M: 94272 Subs Hosp L2
[2023-07-09] MEDS: HYDROcodone Bitartrate/Apap 5/325 Tablet PO (15:49)
[2023-07-09] MEDS: 0.9% Normal Saline (250mL Bag) 250 ML 15 ML IV (15:51)
--- NOTE | 2023-07-09 17:02 | PCM.PN.GU ---
Subjective Subjective Frustrated with catheter and unable to ambulate easily around the room or with therapy. No clots in the urine. We discussed removing it and saving urine to bedside in morning so I can see it. She is eating dinner and looking better this evening. Objective Data Objective Data Vital Signs: Vital Signs Temp Pulse Resp BP Pulse Ox O2 Del Method 98.0 F 69 15 114/46 L 97 Room Air 07/09/23 14:00 07/09/23 14:00 07/09/23 14:00 07/09/23 14:00 07/09/23 14:00 07/09/23 14:00 Oxygen Delivery Method Room Air Weight: 103.6 kg Body Mass Index (BMI) 39.2 Intake & Output: Intake and Output for Last 24 Hours 07/07/23 07/08/23 07/09/23 23:59 23:59 23:59 Intake Total 1050 / 1050 474 / 474 224 / 224 Output Total 525 / 725 800 / 800 Balance 1050 / 1050 -51 / -251 -576 / -576 Lab / Micro Data 07/09/23 05:20 07/09/23 05:20 Labs: Laboratory Results - last 24 hr 07/08/23 16:54: Hgb 8.6 L, Hct 26.8 L 07/08/23 22:45: Hgb 7.6 L, Hct 24.2 L 07/09/23 05:20: WBC 5.2, RBC 2.61 L, Hgb 7.8 L, Hct 24.2 L, MCV 92.7, MCH 29.9, MCHC 32.2, RDW Std Deviation 45.1 H, RDW Coeff of Pravin 13.2, Plt Count 204, MPV 9.3, Immature Gran % (Auto) 0.400, Neut % (Auto) 72.4 H, Lymph % (Auto) 12.0 L, [place] % (Auto) 10.4 H, Eos % (Auto) 4.4, Baso % (Auto) 0.4, Absolute Neuts (auto) 3.7, Absolute Lymphs (auto) 0.62 L, Nucleated RBC % 0, PT 32.1 H, INR 3.2, Sodium 144, Potassium 3.8, Chloride 115 H, Carbon Dioxide 25.0, Anion Gap 4 L, BUN 24 H, Creatinine 1.29 H, Estim Creat Clear Calc 40.78, Est GFR (MDRD) Af Amer 51 L, Est GFR (MDRD) Non-Af 42 L, BUN/Creatinine Ratio 18.6, Glucose 92, Calcium 8.4 L Micro: Microbiology 07/07/23 19:10 Urine Catheter - Catheter Urine Culture - Preliminary Klebsiella pneumoniae sp pneum GPC Poss Enterococcus sp 07/07/23 18:37 Stool Stool Occult Blood (AGNIESZKA) - Final Occult Blood Positive Physical Exam Narrative Urine remains dark in tubing, no clots. Const alert, oriented x3 and no apparent distress Assessment & Plan Assessment/Plan (1) Supratherapeutic INR: (2) Acute UTI: (3) Gross hematuria: PLAN: Plan continue antibiotics per ID continue holding anticoagulation if not clear by Wednesday, NPO after midnight for cystoscopy on Wednesday
[2023-07-09 19:13] VITALS: PULSE 66; RESP 16
[2023-07-09 21:00] VITALS: BP 122/51; PULSE 66; RESP 15; TEMP 36.6; O2SAT 94
[2023-07-09] MEDS: Nortriptyline 25 MG Capsule 100 MG PO (21:58)
[2023-07-09] MEDS: Atorvastatin Calcium 80 MG Tablet PO (21:59)
[2023-07-10] VITALS (9 sets, daily range): BP systolic 115–165; BP diastolic 54–77; PULSE 65–76; RESP 15–18; TEMP 36.4–36.8; O2SAT 94–96
[2023-07-10 05:22] LABS: Absolute Lymphocyte Count 0.62 X10^3/uL (0.83-4.51); Absolute Neutrophil Count 3.9 X10^3/uL (2.0-7.7); Basophil# 0.02 X10^3/uL; Basophil% 0.4 % (0-1); Eosinophil# 0.22 X10^3/uL; Eosinophils% 4.2 % (0-5); Hematocrit 23.8 % (37-47); Hemoglobin 7.4 g/dL (12.0-15.0); Lymphocyte # 0.62 X10^3/ul (0.83-4.51); Lymphocyte % 11.7 % (19-41); Mean Corp Hgb Conc 31.1 g/dL (32-36); Mean Corpuscular Volume 93.3 fL (81-99); Mean Platelet Vol. 9.8 fl (6.2-12.0); Monocyte# 0.52 X10^3/uL; Monocyte% 9.8 % (0-10); NRBC Flagged by Analyzer 0 % (0-5); Neutrophil % 73.5 % (47-70); Platelet Count 215 K/mm3 (150-450); RBC Distribution Width CV 13.2 % (11.6-14.6); RBC Distribution Width SD 44.7 fl (35.1-43.9); Red Blood Count 2.55 M/mm3 (4.2-5.4); White Blood Count 5.3 K/mm3 (4.4-11.0)
[2023-07-10] MEDS: Ampicillin/Sulbactam 3 GM in 0.9% Normal Saline (100mL MB+) 100 ML IV ×3 (05:37→21:24)
[2023-07-10 05:39] LABS: International Normalized Ratio 2.2; Prothrombin Time (Protime)PT. 24.3 SECONDS (11.7-14.9)
[2023-07-10] MEDS: Levothyroxine 100 MCG Tablet PO (05:39)
[2023-07-10 05:40] LABS: Anion Gap 4 (5-15); BUN 30 mg/dL (7-18); BUN/Creat Ratio 22.6 RATIO (10-20); Calcium,Total 8.2 mg/dL (8.5-10.1); Chloride 115 mmol/L (98-107); Creatinine, Serum 1.33 mg/dL (0.55-1.02); EST Glomerular Filtration Rate 41 mL/min (>60); Est Glom Filt Rate - Afr Amer 49 mL/min (>60); Estimated Creatinine Clearance 39.55 ml/min; Glucose 103 mg/dL (74-106); Potassium 3.9 mmol/L (3.5-5.1); Sodium Level 145 mmol/L (136-145)
[2023-07-10] MEDS: Budesonide Respules 0.5 MG/2 ML AMPUL.NEB. INHALATION ×2 (07:16→19:45)
[2023-07-10] MEDS: Allopurinol 100 MG Tablet PO (09:08)
[2023-07-10] MEDS: Pantoprazole Sodium 40 MG Tablet PO (09:08)
[2023-07-10] MEDS: amLODIPine 10 MG Tablet PO (09:09)
[2023-07-10] MEDS: levETIRAcetam 1,000 MG Tablet 1000 MG PO ×2 (09:09→21:24)
[2023-07-10] MEDS: Vibegron 75 MG TABLET PO (09:09)
[2023-07-10] MEDS: Memantine Hydrochloride 10 MG Tablet PO ×2 (09:09→21:25)
[2023-07-10] MEDS: Flecainide 100 MG Tablet PO ×2 (09:10→21:26)
[2023-07-10] MEDS: DULoxetine Hcl 60 MG Capsule PO (09:10)
[2023-07-10] MEDS: Metoprolol(XL)Succ 25 MG Tablet 12.5 MG PO (09:11)
[2023-07-10] MEDS: OXcarbazepine 150 MG Tablet PO ×2 (09:12→21:26)
--- NOTE | 2023-07-10 10:39 | PCM.PN.GU ---
Subjective Subjective Feeling better. No complaints this am. She is not sure what the urine is like today, just now up to void. Objective Data Objective Data Vital Signs: Vital Signs Temp Pulse Resp BP Pulse Ox O2 Del Method 97.9 F 76 18 145/63 H 96 Room Air 07/10/23 09:47 07/10/23 09:49 07/10/23 09:47 07/10/23 09:47 07/10/23 09:47 07/10/23 09:47 Oxygen Delivery Method Room Air Weight: 103.6 kg Body Mass Index (BMI) 39.2 Intake & Output: Intake and Output for Last 24 Hours 07/08/23 07/09/23 07/10/23 23:59 23:59 23:59 Intake Total 474 / 474 336 / 336 112 / 112 Output Total 525 / 725 1050 / 1150 200 / 200 Balance -51 / -251 -714 / -814 -88 / -88 Lab / Micro Data 07/10/23 04:20 07/10/23 04:20 Labs: Laboratory Results - last 24 hr 07/10/23 04:20: WBC 5.3, RBC 2.55 L, Hgb 7.4 L, Hct 23.8 L, MCV 93.3, MCH 29.0, MCHC 31.1 L, RDW Std Deviation 44.7 H, RDW Coeff of Pravin 13.2, Plt Count 215, MPV 9.8, Immature Gran % (Auto) 0.400, Neut % (Auto) 73.5 H, Lymph % (Auto) 11.7 L, [place] % (Auto) 9.8, Eos % (Auto) 4.2, Baso % (Auto) 0.4, Absolute Neuts (auto) 3.9, Absolute Lymphs (auto) 0.62 L, Nucleated RBC % 0, PT 24.3 H, INR 2.2, Sodium 145, Potassium 3.9, Chloride 115 H, Carbon Dioxide 26.0, Anion Gap 4 L, BUN 30 H, Creatinine 1.33 H, Estim Creat Clear Calc 39.55, Est GFR (MDRD) Af Amer 49 L, Est GFR (MDRD) Non-Af 41 L, BUN/Creatinine Ratio 22.6 H, Glucose 103, Calcium 8.2 L Micro: Microbiology 07/07/23 19:10 Urine Catheter - Catheter Urine Culture - Final Klebsiella pneumoniae sp pneum Enterococcus faecium 07/08/23 12:55 Blood Culture (Wb) - Anticubital Right Blood Culture - Preliminary No growth in 48 hours. 07/08/23 12:15 Blood Culture (Wb) - Anticubital Right Blood Culture - Preliminary No growth in 48 hours. 07/07/23 18:37 Stool Stool Occult Blood (AGNIESZKA) - Final Occult Blood Positive Physical Exam Narrative Ambulating to the toilet with assistance. Looks better this morning. Urine visualized in the hat. It is yellow with debris. Much improved. Const alert, oriented x3 and no apparent distress Assessment & Plan Assessment/Plan (1) Gross hematuria: (2) Supratherapeutic INR: (3) Acute UTI: PLAN: Plan continue antibiotics per infectious disease INR is within normal limits this morning Urine is now yellow with what appears consistent with blood debris will continue to follow If urine remains clear, we will plan to perform cystoscopy as an outpatient.
--- NOTE | 2023-07-10 14:49 | PN.HOSP_ITS ---
Reason for Visit Reason for Visit: Diagnoses Urinary tract infection, site not specified (07/07/23) Gross hematuria (07/07/23) Hematuria, unspecified (07/07/23) Abnormal coagulation profile (07/07/23) Objective Data Objective Data Vital Signs: Vital Signs Temp Pulse Resp BP Pulse Ox O2 Del Method 97.9 F 76 18 145/63 H 96 Room Air 07/10/23 09:47 07/10/23 09:49 07/10/23 09:47 07/10/23 09:47 07/10/23 09:47 07/10/23 09:47 Oxygen Delivery Method Room Air Weight: 228 lb 6.382 oz Body Mass Index (BMI) 39.2 Intake & Output: Intake and Output for Last 24 Hours 07/08/23 07/09/23 07/10/23 23:59 23:59 23:59 Intake Total 474 / 474 336 / 336 112 / 112 Output Total 525 / 725 1050 / 1150 200 / 200 Balance -51 / -251 -714 / -814 -88 / -88 Lab / Micro Data 07/10/23 04:20 07/10/23 04:20 Labs: Laboratory Results - last 24 hr 07/10/23 04:20: WBC 5.3, RBC 2.55 L, Hgb 7.4 L, Hct 23.8 L, MCV 93.3, MCH 29.0, MCHC 31.1 L, RDW Std Deviation 44.7 H, RDW Coeff of Pravin 13.2, Plt Count 215, MPV 9.8, Immature Gran % (Auto) 0.400, Neut % (Auto) 73.5 H, Lymph % (Auto) 11.7 L, [place] % (Auto) 9.8, Eos % (Auto) 4.2, Baso % (Auto) 0.4, Absolute Neuts (auto) 3.9, Absolute Lymphs (auto) 0.62 L, Nucleated RBC % 0, PT 24.3 H, INR 2.2, Sodium 145, Potassium 3.9, Chloride 115 H, Carbon Dioxide 26.0, Anion Gap 4 L, BUN 30 H, Creatinine 1.33 H, Estim Creat Clear Calc 39.55, Est GFR (MDRD) Af Amer 49 L, Est GFR (MDRD) Non-Af 41 L, BUN/Creatinine Ratio 22.6 H, Glucose 103, Calcium 8.2 L Micro: Microbiology 07/07/23 19:10 Urine Catheter - Catheter Urine Culture - Final Klebsiella pneumoniae sp pneum Enterococcus faecium 07/08/23 12:55 Blood Culture (Wb) - Anticubital Right Blood Culture - Preliminary No growth in 48 hours. 07/08/23 12:15 Blood Culture (Wb) - Anticubital Right Blood Culture - Preliminary No growth in 48 hours. 07/07/23 18:37 Stool Stool Occult Blood (AGNIESZKA) - Final Occult Blood Positive Physical Exam Narrative Seen and examined Patient had urinary catheter discontinued yesterday. No significant bleeding. Hemoglobin is still low. No chest pain or shortness of breath. INR subtherapeutic. Physical exam General: Alert, Oriented x3, Cooperative HEENT: Atraumatic, PERRLA, EOMI, Normocephalic Oral: No Gingival or Mucosal Lesions/ Ulcerations Neck: Supple, No JVD, Negative Carotid Bruits Chest wall/Lungs: Air entry diminished in bilateral lung bases. No crepitation/rhonchi Cardiovascular: Regular rate. Mechanical click sound of artificial aortic valve . No appreciable regurg murmur. Abdomen: Bowel Sounds Present, Soft, Non Tender, Non-Distended : Hematuria resolved no dysuria. No renal angle tenderness. No suprapubic tenderness. Extremities: No edema, Capillary Refill Less than 3 Seconds Skin: Bruises in the abdomen from Lovenox shot Musculoskeletal: No Tenderness to Palpation of Joints or Extremities Neurological: Cranial nerves II-XII grossly intact, DTR 2+/4. No acute focal neurological deficit. Psych/Mental Status: Normal Affect, Appropriate. Assessment & Plan Assessment/Plan (1) Hematuria: (2) Supratherapeutic INR: PLAN: Plan Patient is having intermittent hematuria since 06/27 and her INR was 5.8. Denies any burning micturition. She stated she also had stool mixed with blood but denies any bright red on tissue paper. She was seen in ED on 06/25 for hematuria and benign CT abdomen pelvis. She was discharged to see urologist. She saw urologist Dr. Katelin Cordoba on 07/05 and had urine culture in the office. She was then sent to ED and admitted. 1. Hematuria most likely due to supratherapeutic INR from warfarin ? Dr. Wyneski with Urology consulted. Suspect supratherapeutic INR is a strong contributor. Triple-lumen catheter and CBI to clear hematuria. Plan for cystoscopy later on after UTI clears Holding home warfarin, monitoring daily INR as noted below. 07/08: No plan for cystoscopy continue IV antibiotic. 07/09: Hematuria resolved. Continue IV antibiotic. Plan for outpatient cystoscopy by Dr. Cordoba 2. Acute blood loss anemia in setting of chronic anemia ? Hemoglobin 9.1 on admit. Also 9.1 on 07/05, but baseline was previously 10-11. Presume secondary to blood loss from hematuria with possible blood loss from the GI tract as well. Holding warfarin and trending daily INR as noted below. Trend daily CBC. Urology and GI consulted. 07/08: Hemoglobin stabilized around 8 g. IV iron infusion ordered 07/09: Hemoglobin 7.4. Iron workup ordered. 3. Enterococcus and Klebsiella UTI: Urine culture from 07/[address] Katelin Cordoba office shows Enterococcus and Klebsiella, more than 1000 colonies resistant to ceftriaxone but sensitive to Cipro. ID consult requested patient also had mechanical AV valve. Blood cultures ordered as precautionary measure. UA showed negative leukocyte esterase and nitrates, 25-50 WBCs, 2+ bacteria. Urine culture ordered. Patient not having classic UTI symptoms, primary concern is hematuria. No leukocytosis and no systemic signs of infection. As Cipro does not have good in situ sensitivity and only moderate activity against enterococci, not first drug of choice therefore selected Unasyn to cover both Enterococcus and Klebsiella. Last urine culture from 02/22/2023 grew pansensitive E. coli. Given 1 dose of ceftriaxone in the ED, will continue ceftriaxone for now. Follow-up urine culture. 07/08: Urine culture from 07/06 growing Klebsiella pneumoniae and GPC possible Enterococcus 80,000-100,000 colonies. Continue IV Unasyn. ID consult appreciated. 07/09 continue IV Unasyn 4. History of mechanical AVR on warfarin with supratherapeutic INR ? Goal INR 2.5-3.5. INR 4.0 on admit, was 6.1 on 07/05. Given that patient had a subtherapeutic INR on recent admission about 2 to 3 weeks ago and hemoglobin is stable from yesterday, will hold home warfarin but not give any vitamin K at this time. Monitor daily INR. 07/08 INR is still high at 3.5. Continue holding warfarin and hematuria has not completely stopped. 07/09 INR 2.2. Warfarin started lower dose 3 mg daily. Monitor INR. 5. History of recent GI bleed ? See Dr. Espinoza's office note from 06/09 for further details. In short, had GI bleed in February 2023. Had EGD and colonoscopy both done at that time. Colonoscopy findings were consistent with ischemic colitis. EGD showed reflux esophagitis with multiple duodenal ulcers with no recent signs of bleeding. Did have positive occult stool in the ED on 07/06. Patient however denies any dark or bloody bowel movements recently. CT abdomen pelvis without contrast on 06/30 was limited, no significant bowel findings noted. GI consulted for further recommendations. 6. History of recent CVA with mild dysarthria and debility ? Hospitalized here from 06/19-06/21. Neurology evaluated on 06/20, see that note for further details. Presented at that time with slurred speech and aphasia, which have significantly improved. No motor symptoms but is fairly weak and debilitated at baseline. Has had home health care services since discharge on 06/21. PT/OT/case management consulted. Patient would prefer to go home with home health care again on discharge. 7. History of neuroendocrine tumor ? Follows with Dr. Espinoza, see office note from 06/09 for further details. Continue outpatient monitoring. 8. 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 Follows Dr. Espinoza. Recent stool positive for C. difficile toxin but negative for antigen, no need for antibiotic therapy. Chronic medical conditions: ? Obesity: BMI 39 on admit. Complicated hospital course, care and prognosis. ? Paroxysmal A-fib, bradyarrhythmia: Follows with [facility]. Stable. Continue home Toprol and flecainide. ? Gout: Continue home allopurinol. ? Hypertension: Stable. Continue home amlodipine and Toprol. ? Overactive bladder: Continue home med. ? Seizure disorder: Continue home Keppra and oxcarbazepine. ? Hypothyroidism: Continue home Synthroid. ? Mood disorder: Continue home duloxetine, nortriptyline, mirtazapine at night as needed. ? Cognitive impairment: Continue home memantine. ? Hyperlipidemia: Continue home statin. ? Chronic pain: Continue home hydrocodone?acetaminophen twice daily as needed. ? Asthma: Stable on room air. Continue home fluticasone. DVT prophylaxis: SCDs CODE STATUS: DNR CCA, DNI Charges/Coding Visit Charges Inpatient E&M: 69472 Subs Hosp L2
[2023-07-10] MEDS: 0.9% Saline Lock 10 ML Syringe IV (14:50)
[2023-07-10 15:52] LABS: Platelet Count 222 K/mm3 (150-450); RET-HE 27.9 pg (30-35); Reticulocyte Count 1.91 % (0.5-1.5)
[2023-07-10 16:20] LABS: Ferritin 44 ng/mL (8-252); Iron 38 ug/dL (50-170); Iron Binding Capacity,Total 291 ug/dL (250-450); PERCENT IRON SATURATION 13.1 % (15.0-55.0)
[2023-07-10] MEDS: Nortriptyline 25 MG Capsule 100 MG PO (21:24)
[2023-07-10] MEDS: Atorvastatin Calcium 80 MG Tablet PO (21:25)
[2023-07-11] VITALS (7 sets, daily range): BP systolic 105–144; BP diastolic 55–65; PULSE 65–82; RESP 16–18; TEMP 36.5–36.7; O2SAT 96–99
[2023-07-11] MEDS: Levothyroxine 100 MCG Tablet PO (05:28)
[2023-07-11] MEDS: Ampicillin/Sulbactam 3 GM in 0.9% Normal Saline (100mL MB+) 100 ML IV (05:28)
[2023-07-11 05:42] LABS: Absolute Lymphocyte Count 0.59 X10^3/uL (0.83-4.51); Absolute Neutrophil Count 4.4 X10^3/uL (2.0-7.7); Basophil# 0.02 X10^3/uL; Basophil% 0.3 % (0-1); Eosinophil# 0.29 X10^3/uL; Hematocrit 23.9 % (37-47); Hemoglobin 7.4 g/dL (12.0-15.0); Lymphocyte # 0.59 X10^3/ul (0.83-4.51); Lymphocyte % 10.2 % (19-41); Mean Corpuscular Hgb 28.8 pg (27.0-32.0); Mean Platelet Vol. 9.5 fl (6.2-12.0); Monocyte# 0.47 X10^3/uL; Monocyte% 8.1 % (0-10); NRBC Flagged by Analyzer 0 % (0-5); Neutrophil # 4.37 X10^3/uL (2.7-7.7); Neutrophil % 75.9 % (47-70); POSITIVE DIFFERENTIAL YES; Platelet Count 223 K/mm3 (150-450); RBC Distribution Width CV 13.2 % (11.6-14.6); RBC Distribution Width SD 45.1 fl (35.1-43.9); Red Blood Count 2.57 M/mm3 (4.2-5.4); White Blood Count 5.8 K/mm3 (4.4-11.0)
[2023-07-11 05:52] LABS: International Normalized Ratio 1.8; Prothrombin Time (Protime)PT. 21.1 SECONDS (11.7-14.9)
[2023-07-11 06:06] LABS: Anion Gap 3 (5-15); BUN 31 mg/dL (7-18); BUN/Creat Ratio 23.5 RATIO (10-20); Calcium,Total 8.5 mg/dL (8.5-10.1); Chloride 113 mmol/L (98-107); Creatinine, Serum 1.32 mg/dL (0.55-1.02); EST Glomerular Filtration Rate 41 mL/min (>60); Est Glom Filt Rate - Afr Amer 50 mL/min (>60); Estimated Creatinine Clearance 39.85 ml/min; Glucose 101 mg/dL (74-106); Potassium 3.9 mmol/L (3.5-5.1); Sodium Level 143 mmol/L (136-145)
[2023-07-11] MEDS: Budesonide Respules 0.5 MG/2 ML AMPUL.NEB. INHALATION ×2 (07:25→19:38)
[2023-07-11] MEDS: Allopurinol 100 MG Tablet PO (08:13)
[2023-07-11] MEDS: Memantine Hydrochloride 10 MG Tablet PO ×2 (08:13→20:41)
[2023-07-11] MEDS: amLODIPine 10 MG Tablet PO (08:14)
[2023-07-11] MEDS: levETIRAcetam 1,000 MG Tablet 1000 MG PO ×2 (08:14→20:42)
[2023-07-11] MEDS: Metoprolol(XL)Succ 25 MG Tablet 12.5 MG PO (08:15)
[2023-07-11] MEDS: Pantoprazole Sodium 40 MG Tablet PO (08:15)
[2023-07-11] MEDS: Flecainide 100 MG Tablet PO ×2 (08:15→20:43)
[2023-07-11] MEDS: DULoxetine Hcl 60 MG Capsule PO (08:15)
[2023-07-11] MEDS: Lactobacillis Acidophilus 1 CAP PO (08:16)
[2023-07-11] MEDS: Vibegron 75 MG TABLET PO (08:16)
[2023-07-11] MEDS: OXcarbazepine 150 MG Tablet PO ×2 (08:16→20:41)
--- NOTE | 2023-07-11 09:51 | DCINST_ITS ---
Discharge Instructions Diet Discharge Diet: Low fat / Low cholesterol and 2000 mg Sodium Diet Activity Discharge Activity: Return to Normal Activity Weight Bearing Status: Weight bearing as tolerated Dressing / Incision Call your doctor if you observe: Fever of 101 or Higher, Coldness, Increased Pain, Numbness or Tingling, Change in Color, Inability to urinate, Inability to have a bowel movement, Using more than 1 pad per hour, Shortness of breath, Dizziness, Fainting spells, Swelling in the ankles, Chest pain, Prolonged hiccupping, Increased palpitations (irregular heartbeat) and Calf discomfort Follow Up Care When: IN 2 WEEKS Test Results: Test results from this visit will be discussed in further detail at your follow- up appointment, if applicable. Discharge Plan Admission Admit Date/Time: 07/07/23 20:26 Attending Provider: Zhao Estrada Primary Care Provider: Kishore Ricci Consulting Providers: Katelin Cordoba; Sav Edmond; Harshal Brown Instructions Additional Instructions / Restrictions: Start warfarin from 07/12/23. INR Tomorrow am Discharge Orders/Prescriptions Prescriptions: New amoxicillin-pot clavulanate [Augmentin] 500-125 mg tablet 1 tab PO BID 5 Days Qty: 10 0RF Continued allopurinol 100 mg tablet 100 mg PO DAILY Qty: 90 levothyroxine 100 mcg tablet 100 mcg PO DAILY Qty: 90 levetiracetam [Keppra] 1,000 mg tablet 1,000 mg PO BID amlodipine 10 mg tablet 10 mg PO DAILY oxcarbazepine 150 mg tablet 150 mg PO BID hydrocodone-acetaminophen 5-325 mg tablet 1 tab PO BID PRN (Reason: PAIN ) Patient Comments: PT STATES TAKES NEEDED (03-18-23) metoprolol succinate 25 mg tablet extended release 24 hr 12.5 mg PO DAILY Qty: 90 Probiotic Acidophilus 250 million cell capsule 1,000 mmu cells PO DAILY Gemtesa 75 mg tablet 75 mg PO DAILY memantine 10 mg tablet 10 mg PO BID nortriptyline 50 mg capsule 100 mg PO DAILY metaxalone 400 mg tablet 400 mg PO BID duloxetine 60 mg capsule,delayed release(DR/EC) 60 mg PO DAILY nitroglycerin [Nitrostat] 0.4 mg tablet, sublingual 0.4 mg sublingual Q5M PRN (Reason: CHEST PAIN ) Rx Instructions: do not exceed 3 doses per episode cholecalciferol (vitamin D3) [] 50 mcg (2,000 unit) capsule 2,000 unit PO DAILY omeprazole 40 mg capsule,delayed release(DR/EC) 40 mg PO DAILY fluticasone propionate 220 mcg/actuation HFA aerosol inhaler 2 inh inhalation BID rosuvastatin 40 mg tablet 40 mg PO QHS 30 Days Qty: 30 4RF mirtazapine 7.5 mg tablet 3.75 - 7.5 mg PO QHS PRN (Reason: antidepressant) warfarin 4 mg tablet 4 mg PO DAILY Qty: 7 0RF Protocol: Dose Management Condition: Wednesday Dose/Route: 6 mg Instruction: 1 x 6 mg tablet Condition: Wednesday Dose/Route: 4 mg Instruction: 1 x 4 mg tablet Condition: Wednesday Dose/Route: 4 mg Instruction: 1 x 4 mg tablet Condition: Wednesday Dose/Route: 0 mg Instruction: 0 tablets Condition: Dose/Route: 0 mg Instruction: 0 tablets Condition: Wednesday Dose/Route: 4 mg Instruction: 1 x 4 mg tablet Condition: Wednesday Dose/Route: 4 mg Instruction: 1 x 4 mg tablet Protocol Text: Adjustment Start Date: Wednesday07/07/23 INR Value: 6.1 INR Date: 07/07/23 Recheck Date: 07/09/23 Patient Comments: family states shes supposed to take none on 07/07/23 and 07/08/23 and start back on the depending on INR Rx Instructions: Start from 07/12/23. INR Tomorrow am flecainide 100 mg tablet 100 mg PO BID Held warfarin [] 6 mg Tablet 6 mg PO DAILY@1700 30 Days Qty: 30 1RF Hold Instructions: Hold it,pt on lower dose of warfarin Protocol: Dose Management Condition: Wednesday Dose/Route: 6 mg Instruction: 1 x 6 mg tablet Condition: Wednesday Dose/Route: 4 mg Instruction: 1 x 4 mg tablet Condition: Wednesday Dose/Route: 4 mg Instruction: 1 x 4 mg tablet Condition: Wednesday Dose/Route: 0 mg Instruction: 0 tablets Condition: Dose/Route: 0 mg Instruction: 0 tablets Condition: Wednesday Dose/Route: 4 mg Instruction: 1 x 4 mg tablet Condition: Wednesday Dose/Route: 4 mg Instruction: 1 x 4 mg tablet Protocol Text: Adjustment Start Date: Wednesday07/07/23 INR Value: 6.1 INR Date: 07/07/23 Recheck Date: 07/09/23 Patient Comments: family states shes supposed to take none on 07/07/23 and 07/08/23 and start back on the depending on INR Rx Instructions: Keep INR between 2.5-3.5, average 3.0. Hold if INR more than 3.5 Referrals / Follow Up: Gabriel Leblanc MD [Med Staff - Active Staff] - 07/13/23 (As previously scheduled ) Kishore Ricci MD [Primary Care Provider] - Katelin Cordoba MD [Med Staff - Active Staff] - Within 1 Week Disposition Disposition (needs filled in before D/C Order can be placed): Home Health Service
--- NOTE | 2023-07-11 09:51 | NURSING ---
This RN called and spoke with Dr. Cordoba via phone and informed her that urine was clear yellow with no blood noted. Pt asymptomatic. Dr. Cordoba is fine with her going home. Dr. Estrada walked on the unit and was handed the phone and talked to Dr. Cordoba about discharging.
--- NOTE | 2023-07-11 10:03 | PCM.DC.SUM ---
Providers Date of Admission: 07/07/23 Date of Discharge: 07/11/23 Primary Care Physician: Dr. Kishore Ricci MD Consultations 07/07/23 21:30 Consult: Gastroenterology Routine Consulting Provider: [facility] Reason for Consult: concern for recurrent GIB, supratherapeutic INR EMERGENT Consult: No Notified: Yes Date Notified: 07/07/23 Time Notified: 20:34 Method of Notification: ED Physician Initiated Consult: Urology Routine Consulting Provider: Katelin Cordoba Reason for Consult: recurrent hematuria EMERGENT Consult: No Notified: Yes Date Notified: 07/07/23 Time Notified: 20:33 Method of Notification: ED Physician Initiated 07/08/23 11:43 Consult: Infectious Disease Routine Consulting Provider: Harshal Brown Reason for Consult: Enteroccus and Kleb in Urine cx, DR Cordoba office culture EMERGENT Consult: No Notified: Yes Date Notified: 07/08/23 Time Notified: 11:43 Method of Notification: Text Reason For Visit: HEMATURIA, MELENA, SUPRATHERAPEUTIC INR Diagnosis Discharge Diagnosis (1) Hematuria: Status: Inactive Code(s): R31.9 - Hematuria, unspecified (2) Supratherapeutic INR: Status: Acute Code(s): R79.1 - Abnormal coagulation profile Plan Patient is having intermittent hematuria since 06/27 and her INR was 5.8. Denies any burning micturition. She stated she also had stool mixed with blood but denies any bright red on tissue paper. She was seen in ED on 06/25 for hematuria and benign CT abdomen pelvis. She was discharged to see urologist. She saw urologist Dr. Katelin Cordoba on 07/05 and had urine culture in the office. She was then sent to ED and admitted. 1. Hematuria most likely due to supratherapeutic INR from warfarin ? Dr. Cordoba with Urology consulted. Suspect supratherapeutic INR is a strong contributor. Triple-lumen catheter and CBI to clear hematuria. Plan for cystoscopy later on after UTI clears Holding home warfarin, monitoring daily INR as noted below. 07/08: No plan for cystoscopy continue IV antibiotic. 07/09: Hematuria resolved. Continue IV antibiotic. Plan for outpatient cystoscopy by Dr. Cordoba 07/10: urine is clear. Hematuria has stopped. Discussed with Dr. Katelin Cordoba 2. Acute blood loss anemia in setting of chronic anemia ? Hemoglobin 9.1 on admit. Also 9.1 on 07/05, but baseline was previously 10-11. Presume secondary to blood loss from hematuria with possible blood loss from the GI tract as well. Holding warfarin and trending daily INR as noted below. Trend daily CBC. Urology and GI consulted. 07/08: Hemoglobin stabilized around 8 g. IV iron infusion ordered 07/09: Hemoglobin 7.4. Iron workup ordered. 07/10 check shows low iron 38, TIBC normal iron saturation 13% low ferritin 44 therefore has mixed iron versus anemia anemia of chronic disease. Prescription for ferrous fumarate and ascorbic acid given. Follow-up PCP 3. Enterococcus and Klebsiella UTI: Urine culture from 07/[address] Katelin Cordoba office shows Enterococcus and Klebsiella, more than 1000 colonies resistant to ceftriaxone but sensitive to Cipro. ID consult requested patient also had mechanical AV valve. Blood cultures ordered as precautionary measure. UA showed negative leukocyte esterase and nitrates, 25-50 WBCs, 2+ bacteria. Urine culture ordered. Patient not having classic UTI symptoms, primary concern is hematuria. No leukocytosis and no systemic signs of infection. As Cipro does not have good in situ sensitivity and only moderate activity against enterococci, not first drug of choice therefore selected Unasyn to cover both Enterococcus and Klebsiella. Last urine culture from 02/22/2023 grew pansensitive E. coli. Given 1 dose of ceftriaxone in the ED, will continue ceftriaxone for now. Follow-up urine culture. 07/08: Urine culture from 07/06 growing Klebsiella pneumoniae and GPC possible Enterococcus 80,000-100,000 colonies. Continue IV Unasyn. ID consult appreciated. 07/09 continue IV Unasyn 07/10: Prescription for Augmentin given. 4. History of mechanical AVR on warfarin with supratherapeutic INR ? Goal INR 2.5-3.5. INR 4.0 on admit, was 6.1 on 07/05. Given that patient had a subtherapeutic INR on recent admission about 2 to 3 weeks ago and hemoglobin is stable from yesterday, will hold home warfarin but not give any vitamin K at this time. Monitor daily INR. 07/08 INR is still high at 3.5. Continue holding warfarin and hematuria has not completely stopped. 07/09 INR 2.2. Warfarin started lower dose 3 mg daily. Monitor INR. 07/10: INR 1.8. Warfarin 5 mg 1 dose now and then PT/INR check tomorrow AM and titrate the dose of warfarin accordingly. 5. History of recent GI bleed ? See Dr. Espinoza's office note from 06/09 for further details. In short, had GI bleed in February 2023. Had EGD and colonoscopy both done at that time. Colonoscopy findings were consistent with ischemic colitis. EGD showed reflux esophagitis with multiple duodenal ulcers with no recent signs of bleeding. Did have positive occult stool in the ED on 07/06. Patient however denies any dark or bloody bowel movements recently. CT abdomen pelvis without contrast on 06/30 was limited, no significant bowel findings noted. GI consulted for further recommendations. 6. History of recent CVA with mild dysarthria and debility ? Hospitalized here from 06/19-06/21. Neurology evaluated on 06/20, see that note for further details. Presented at that time with slurred speech and aphasia, which have significantly improved. No motor symptoms but is fairly weak and debilitated at baseline. Has had home health care services since discharge on 06/21. PT/OT/case management consulted. Patient would prefer to go home with home health care again on discharge. 7. History of neuroendocrine tumor ? Follows with Dr. Espinoza, see office note from 06/09 for further details. Continue outpatient monitoring. 8. 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 Follows Dr. Espinoza. Recent stool positive for C. difficile toxin but negative for antigen, no need for antibiotic therapy. Chronic medical conditions: ? Obesity: BMI 39 on admit. Complicated hospital course, care and prognosis. ? Paroxysmal A-fib, bradyarrhythmia: Follows with [facility]. Stable. Continue home Toprol and flecainide. ? Gout: Continue home allopurinol. ? Hypertension: Stable. Continue home amlodipine and Toprol. ? Overactive bladder: Continue home med. ? Seizure disorder: Continue home Keppra and oxcarbazepine. ? Hypothyroidism: Continue home Synthroid. ? Mood disorder: Continue home duloxetine, nortriptyline, mirtazapine at night as needed. ? Cognitive impairment: Continue home memantine. ? Hyperlipidemia: Continue home statin. ? Chronic pain: Continue home hydrocodone?acetaminophen twice daily as needed. ? Asthma: Stable on room air. Continue home fluticasone. DVT prophylaxis: SCDs CODE STATUS: DNR CCA, DNI Medications at Discharge Home Medications allopurinol 100 mg tablet 100 mg PO DAILY GOUT #90 tabs 02/22/19 levothyroxine 100 mcg tablet 100 mcg PO DAILY THYROID #90 tabs 02/22/19 levetiracetam 1,000 mg tablet (Keppra) 1,000 mg PO BID EPILEPSY 06/06/21 oxcarbazepine 150 mg tablet 150 mg PO BID EPILESPSY 09/12/21 amlodipine 10 mg tablet 10 mg PO DAILY BLOOD PRESSURE 11/25/21 metoprolol succinate 25 mg tablet,extended release 24 hr 12.5 mg PO DAILY HEART #90 tabs 11/25/21 flecainide 100 mg tablet 100 mg PO BID HEART 12/09/21 memantine 10 mg tablet 10 mg PO BID MEMORY 02/22/23 vibegron 75 mg tablet (Gemtesa) 75 mg PO DAILY OVERACTIVE BLADDER 02/22/23 duloxetine 60 mg capsule,delayed release 60 mg PO DAILY DEPRESSION 03/17/23 metaxalone 400 mg tablet 400 mg PO BID MUSCLE SPASMS/PAIN 03/17/23 nitroglycerin 0.4 mg sublingual tablet (Nitrostat) 0.4 mg sublingual Q5M PRN CHEST PAIN 03/17/23 nortriptyline 50 mg capsule 100 mg PO DAILY DEPRESSION 03/17/23 hydrocodone-acetaminophen 5-325mg 5mg-325mg 1 tab PO BID PRN PAIN 03/26/23 Lactobacillus acidophilus 250 million cell capsule (Probiotic Acidophilus) 1,000 mmu cells PO DAILY asthma 04/14/23 cholecalciferol (vitamin D3) 50 mcg (2,000 unit) capsule (D3-2000) 2,000 unit PO DAILY vitamin 06/20/23 omeprazole 40 mg capsule,delayed release 40 mg PO DAILY reflux 06/20/23 fluticasone propionate 220 mcg/actuation HFA aerosol inhaler 2 inh inhalation BID asthma 06/21/23 rosuvastatin 40 mg tablet 40 mg PO QHS 1 month #30 tabs 06/22/23 warfarin 6 mg tablet (Jantoven) 6 mg PO DAILY@1700 30 days #30 tabs 06/22/23 mirtazapine 7.5 mg tablet 3.75 - 7.5 mg PO QHS PRN antidepressant 07/07/23 amoxicillin 500 mg-potassium clavulanate 125 mg tablet (Augmentin) 1 tab PO BID 5 days #10 tabs 07/11/23 ascorbic acid (vitamin C) 500 mg tablet 500 mg PO BID #60 tabs 07/11/23 ferrous fumarate 324 mg (106 mg iron) tablet 324 mg PO DAILY 1 month #30 tabs 07/11/23 warfarin 4 mg tablet 4 mg PO DAILY BLOOD THINNER #7 tabs 07/11/23 Physical Exam Narrative Seen and examined Urine is clear. No hematuria. Hemoglobin is still low. No chest pain or shortness of breath. INR subtherapeutic. Physical exam General: Alert, Oriented x3, Cooperative HEENT: Atraumatic, PERRLA, EOMI, Normocephalic Oral: No Gingival or Mucosal Lesions/ Ulcerations Neck: Supple, No JVD, Negative Carotid Bruits Chest wall/Lungs: Air entry diminished in bilateral lung bases. No crepitation/rhonchi Cardiovascular: Regular rate. Mechanical click sound of artificial aortic valve. No appreciable regurg murmur. Abdomen: Bowel Sounds Present, Soft, Non Tender, Non-Distended : Hematuria resolved no dysuria. No renal angle tenderness. No suprapubic tenderness. Extremities: No edema, Capillary Refill Less than 3 Seconds Skin: Bruises in the abdomen from Lovenox shot Musculoskeletal: No Tenderness to Palpation of Joints or Extremities Neurological: Cranial nerves II-XII grossly intact, DTR 2+/4. No acute focal neurological deficit. Psych/Mental Status: Normal Affect, Appropriate. Weight / BMI Weight Weight: 228 lb 6.382 oz Body Mass Index (BMI) 39.2 ABG / Lab / Microbiology Data 07/11/23 04:48 07/11/23 04:48 Laboratory: Laboratory Results - last 24 hr 07/10/23 15:45: Retic Count 1.91 H, Immature Retic Fraction 16.50 H, Retic Hgb Equivalent 27.9 L, Iron 38 L, TIBC 291, Iron Saturation 13.1 L, Ferritin 44 07/11/23 04:48: WBC 5.8, RBC 2.57 L, Hgb 7.4 L, Hct 23.9 L, MCV 93.0, MCH 28.8, MCHC 31.0 L, RDW Std Deviation 45.1 H, RDW Coeff of Pravin 13.2, Plt Count 223, MPV 9.5, Immature Gran % (Auto) 0.500, Neut % (Auto) 75.9 H, Lymph % (Auto) 10.2 L, [place] % (Auto) 8.1, Eos % (Auto) 5.0, Baso % (Auto) 0.3, Absolute Neuts (auto) 4.4, Absolute Lymphs (auto) 0.59 L, Nucleated RBC % 0, PT 21.1 H, INR 1.8, Sodium 143, Potassium 3.9, Chloride 113 H, Carbon Dioxide 27.0, Anion Gap 3 L, BUN 31 H, Creatinine 1.32 H, Estim Creat Clear Calc 39.85, Est GFR (MDRD) Af Amer 50 L, Est GFR (MDRD) Non-Af 41 L, BUN/Creatinine Ratio 23.5 H, Glucose 101, Calcium 8.5 Microbiology: Microbiology 07/07/23 19:10 Urine Catheter - Catheter Urine Culture - Final Klebsiella pneumoniae sp pneum Enterococcus faecium 07/08/23 12:55 Blood Culture (Wb) - Anticubital Right Blood Culture - Preliminary No growth in 48 hours. 07/08/23 12:15 Blood Culture (Wb) - Anticubital Right Blood Culture - Preliminary No growth in 48 hours. 07/07/23 18:37 Stool Stool Occult Blood (AGNIESZKA) - Final Occult Blood Positive D/C Instructions Discharge Diet: Low fat / Low cholesterol and 2000 mg Sodium Diet Weight Bearing Status: Weight bearing as tolerated Call your doctor if you observe: Fever of 101 or Higher, Coldness, Increased Pain, Numbness or Tingling, Change in Color, Inability to urinate, Inability to have a bowel movement, Using more than 1 pad per hour, Shortness of breath, Dizziness, Fainting spells, Swelling in the ankles, Chest pain, Prolonged hiccupping, Increased palpitations (irregular heartbeat) and Calf discomfort When: IN 2 WEEKS Meaningful Use Info Meaningful Use Meaningful Use Diagnoses (Choose all that apply): None applicable Ischemic Stroke Statin Dosing Therapy Reference: STATIN DOSE THERAPY REFERENCE: * Patients > 75 years receive moderate or high dose statin therapy. * Patients 75 years or YOUNGER should receive HIGH intensity statin dose unless contraindicated. You will be required to document reason for non-treatment if statin daily dose does not meet guidelines. HIGH DOSE STATIN THERAPY DAILY Atorvastatin > than or = to 40 mg Rosuvastatin > than or = to 20 mg Amlodipine + Atorvastatin > than or = to 2.5/40 mg Ezetimibe + Simvastatin 10/80 mg Simvastatin 80mg Discharge Plan Admission Admit Date/Time: 07/07/23 20:26 Attending Provider: Zhao Estrada Primary Care Provider: Kishore Ricci Consulting Providers: Katelin Cordoba; Sav Edmond; Harshal Brown Instructions Additional Instructions / Restrictions: Start warfarin from 07/12/23. INR Tomorrow am Discharge Orders/Prescriptions Prescriptions: New amoxicillin-pot clavulanate [Augmentin] 500-125 mg tablet 1 tab PO BID 5 Days Qty: 10 0RF ferrous fumarate 324 mg (106 mg iron) tablet 324 mg PO DAILY 30 Days Qty: 30 2RF ascorbic acid (vitamin C) 500 mg tablet 500 mg PO BID Qty: 60 2RF Continued allopurinol 100 mg tablet 100 mg PO DAILY Qty: 90 levothyroxine 100 mcg tablet 100 mcg PO DAILY Qty: 90 levetiracetam [Keppra] 1,000 mg tablet 1,000 mg PO BID amlodipine 10 mg tablet 10 mg PO DAILY oxcarbazepine 150 mg tablet 150 mg PO BID hydrocodone-acetaminophen 5-325 mg tablet 1 tab PO BID PRN (Reason: PAIN ) Patient Comments: PT STATES TAKES NEEDED (03-18-23) metoprolol succinate 25 mg tablet extended release 24 hr 12.5 mg PO DAILY Qty: 90 Probiotic Acidophilus 250 million cell capsule 1,000 mmu cells PO DAILY Gemtesa 75 mg tablet 75 mg PO DAILY memantine 10 mg tablet 10 mg PO BID nortriptyline 50 mg capsule 100 mg PO DAILY metaxalone 400 mg tablet 400 mg PO BID duloxetine 60 mg capsule,delayed release(DR/EC) 60 mg PO DAILY nitroglycerin [Nitrostat] 0.4 mg tablet, sublingual 0.4 mg sublingual Q5M PRN (Reason: CHEST PAIN ) Rx Instructions: do not exceed 3 doses per episode cholecalciferol (vitamin D3) [D3-2000] 50 mcg (2,000 unit) capsule 2,000 unit PO DAILY omeprazole 40 mg capsule,delayed release(DR/EC) 40 mg PO DAILY fluticasone propionate 220 mcg/actuation HFA aerosol inhaler 2 inh inhalation BID rosuvastatin 40 mg tablet 40 mg PO QHS 30 Days Qty: 30 4RF mirtazapine 7.5 mg tablet 3.75 - 7.5 mg PO QHS PRN (Reason: antidepressant) warfarin 4 mg tablet 4 mg PO DAILY Qty: 7 0RF Protocol: Dose Management Condition: Wednesday Dose/Route: 6 mg Instruction: 1 x 6 mg tablet Condition: Wednesday Dose/Route: 4 mg Instruction: 1 x 4 mg tablet Condition: Wednesday Dose/Route: 4 mg Instruction: 1 x 4 mg tablet Condition: Wednesday Dose/Route: 0 mg Instruction: 0 tablets Condition: Dose/Route: 0 mg Instruction: 0 tablets Condition: Wednesday Dose/Route: 4 mg Instruction: 1 x 4 mg tablet Condition: Wednesday Dose/Route: 4 mg Instruction: 1 x 4 mg tablet Protocol Text: Adjustment Start Date: Wednesday07/07/23 INR Value: 6.1 INR Date: 07/07/23 Recheck Date: 07/09/23 Patient Comments: family states shes supposed to take none on 07/07/23 and 07/08/23 and start back on the depending on INR Rx Instructions: Start from 07/12/23. INR Tomorrow am flecainide 100 mg tablet 100 mg PO BID Held warfarin [] 6 mg Tablet 6 mg PO DAILY@1700 30 Days Qty: 30 1RF Hold Instructions: Hold it,pt on lower dose of warfarin Protocol: Dose Management Condition: Wednesday Dose/Route: 6 mg Instruction: 1 x 6 mg tablet Condition: Wednesday Dose/Route: 4 mg Instruction: 1 x 4 mg tablet Condition: Wednesday Dose/Route: 4 mg Instruction: 1 x 4 mg tablet Condition: Wednesday Dose/Route: 0 mg Instruction: 0 tablets Condition: Dose/Route: 0 mg Instruction: 0 tablets Condition: Wednesday Dose/Route: 4 mg Instruction: 1 x 4 mg tablet Condition: Wednesday Dose/Route: 4 mg Instruction: 1 x 4 mg tablet Protocol Text: Adjustment Start Date: Wednesday07/07/23 INR Value: 6.1 INR Date: 07/07/23 Recheck Date: 07/09/23 Patient Comments: family states shes supposed to take none on 07/07/23 and 07/08/23 and start back on the depending on INR Rx Instructions: Keep INR between 2.5-3.5, average 3.0. Hold if INR more than 3.5 Referrals / Follow Up: Gabriel Leblanc MD [Med Staff - Active Staff] - 07/13/23 (As previously scheduled ) Katelin Cordoba MD [Med Staff - Active Staff] - Within 1 Week Kishore Ricci MD [Primary Care Provider] - Disposition Disposition (needs filled in before D/C Order can be placed): Home Health Service Charges/Coding Visit Charges Inpatient E&M: 30499 Disch Hosp >30min
--- NOTE | 2023-07-11 10:49 | NURSING ---
This RN took pt IV out and came to print discharge instructions out when I received a phone call from Ms. Mckee daughter Fátima and Fátima was concerned that her mother was coming home. Ms. Mckee daughter states that she would like to have her mother stay in the hospital until the INR is therpeutic rather then sending her home with INR of 1.8 and then checking it tomorrow as an outpt because this has happened before where we take her home when her INR is not in normal range and then we have to come back to the hospital. Dr. Estrada is agreeable now to keep patient here and cancel discharge.
--- NOTE | 2023-07-11 11:21 | PCM.PN.HOSP ---
Reason for Visit Reason for Visit: Diagnoses Urinary tract infection, site not specified (07/07/23) Gross hematuria (07/07/23) Hematuria, unspecified (07/07/23) Abnormal coagulation profile (07/07/23) Objective Data Objective Data Vital Signs: Vital Signs Temp Pulse Resp BP Pulse Ox O2 Del Method 97.7 F L 68 18 144/65 H 98 Room Air 07/11/23 08:07 07/11/23 08:15 07/11/23 08:07 07/11/23 08:07 07/11/23 08:07 07/11/23 08:07 Oxygen Delivery Method Room Air Weight: 228 lb 6.382 oz Body Mass Index (BMI) 39.2 Intake & Output: Intake and Output for Last 24 Hours 07/09/23 07/10/23 07/11/23 23:59 23:59 23:59 Intake Total 336 / 336 1673.25 / 1673.25 712 / 712 Output Total 1050 / 1150 200 / 200 Balance -714 / -814 1473.25 / 1473.25 712 / 712 Lab / Micro Data 07/11/23 04:48 07/11/23 04:48 Labs: Laboratory Results - last 24 hr 07/10/23 15:45: Retic Count 1.91 H, Immature Retic Fraction 16.50 H, Retic Hgb Equivalent 27.9 L, Iron 38 L, TIBC 291, Iron Saturation 13.1 L, Ferritin 44 07/11/23 04:48: WBC 5.8, RBC 2.57 L, Hgb 7.4 L, Hct 23.9 L, MCV 93.0, MCH 28.8, MCHC 31.0 L, RDW Std Deviation 45.1 H, RDW Coeff of Pravin 13.2, Plt Count 223, MPV 9.5, Immature Gran % (Auto) 0.500, Neut % (Auto) 75.9 H, Lymph % (Auto) 10.2 L, Petroleum % (Auto) 8.1, Eos % (Auto) 5.0, Baso % (Auto) 0.3, Absolute Neuts (auto) 4.4, Absolute Lymphs (auto) 0.59 L, Nucleated RBC % 0, PT 21.1 H, INR 1.8, Sodium 143, Potassium 3.9, Chloride 113 H, Carbon Dioxide 27.0, Anion Gap 3 L, BUN 31 H, Creatinine 1.32 H, Estim Creat Clear Calc 39.85, Est GFR (MDRD) Af Amer 50 L, Est GFR (MDRD) Non-Af 41 L, BUN/Creatinine Ratio 23.5 H, Glucose 101, Calcium 8.5 Micro: Microbiology 07/07/23 19:10 Urine Catheter - Catheter Urine Culture - Final Klebsiella pneumoniae sp pneum Enterococcus faecium 07/08/23 12:55 Blood Culture (Wb) - Anticubital Right Blood Culture - Preliminary No growth in 48 hours. 07/08/23 12:15 Blood Culture (Wb) - Anticubital Right Blood Culture - Preliminary No growth in 48 hours. 07/07/23 18:37 Stool Stool Occult Blood (AGNIESZKA) - Final Occult Blood Positive Physical Exam Narrative Seen and examined Urine is clear. No hematuria. Hemoglobin is still low. No chest pain or shortness of breath. INR subtherapeutic. Physical exam General: Alert, Oriented x3, Cooperative HEENT: Atraumatic, PERRLA, EOMI, Normocephalic Oral: No Gingival or Mucosal Lesions/ Ulcerations Neck: Supple, No JVD, Negative Carotid Bruits Chest wall/Lungs: Air entry diminished in bilateral lung bases. No crepitation/rhonchi Cardiovascular: Regular rate. Mechanical click sound of artificial aortic valve. No appreciable regurg murmur. Abdomen: Bowel Sounds Present, Soft, Non Tender, Non-Distended : Hematuria resolved no dysuria. No renal angle tenderness. No suprapubic tenderness. Extremities: No edema, Capillary Refill Less than 3 Seconds Skin: Bruises in the abdomen from Lovenox shot Musculoskeletal: No Tenderness to Palpation of Joints or Extremities Neurological: Cranial nerves II-XII grossly intact, DTR 2+/4. No acute focal neurological deficit. Psych/Mental Status: Normal Affect, Appropriate. Assessment & Plan Assessment/Plan (1) Hematuria: (2) Supratherapeutic INR: PLAN: Plan Patient is having intermittent hematuria since 06/27 and her INR was 5.8. Denies any burning micturition. She stated she also had stool mixed with blood but denies any bright red on tissue paper. She was seen in ED on 06/25 for hematuria and benign CT abdomen pelvis. She was discharged to see urologist. She saw urologist Dr. Katelin Cordoba on 07/05 and had urine culture in the office. She was then sent to ED and admitted. 1. Hematuria most likely due to supratherapeutic INR from warfarin ? Dr. Cordoba with Urology consulted. Suspect supratherapeutic INR is a strong contributor. Triple-lumen catheter and CBI to clear hematuria. Plan for cystoscopy later on after UTI clears Holding home warfarin, monitoring daily INR as noted below. 07/08: No plan for cystoscopy continue IV antibiotic. 07/09: Hematuria resolved. Continue IV antibiotic. Plan for outpatient cystoscopy by Dr. Cordoba 07/10: urine is clear. Hematuria has stopped. Discussed with Dr. Katelin Cordoba patient's daughter call that she is very worried about patient going with low INR and also at the same time worried about shooting up INR suddenly and hematuria. Therefore decided to keep 1 more day. 2. Acute blood loss anemia in setting of chronic anemia ? Hemoglobin 9.1 on admit. Also 9.1 on 07/05, but baseline was previously 10-11. Presume secondary to blood loss from hematuria with possible blood loss from the GI tract as well. Holding warfarin and trending daily INR as noted below. Trend daily CBC. Urology and GI consulted. 07/08: Hemoglobin stabilized around 8 g. IV iron infusion ordered 07/09: Hemoglobin 7.4. Iron workup ordered. 07/10 iron profile shows low iron 38, TIBC normal iron saturation 13% low ferritin 44 therefore has mixed iron versus anemia anemia of chronic disease. IV iron ordered. 3. Enterococcus and Klebsiella UTI: Urine culture from 07/[address] Katelin Cordoba office shows Enterococcus and Klebsiella, more than 1000 colonies resistant to ceftriaxone but sensitive to Cipro. ID consult requested patient also had mechanical AV valve. Blood cultures ordered as precautionary measure. UA showed negative leukocyte esterase and nitrates, 25-50 WBCs, 2+ bacteria. Urine culture ordered. Patient not having classic UTI symptoms, primary concern is hematuria. No leukocytosis and no systemic signs of infection. As Cipro does not have good in situ sensitivity and only moderate activity against enterococci, not first drug of choice therefore selected Unasyn to cover both Enterococcus and Klebsiella. Last urine culture from 02/22/2023 grew pansensitive E. coli. Given 1 dose of ceftriaxone in the ED, will continue ceftriaxone for now. Follow-up urine culture. 07/08: Urine culture from 07/06 growing Klebsiella pneumoniae and GPC possible Enterococcus 80,000-100,000 colonies. Continue IV Unasyn. ID consult appreciated. 07/09 continue IV Unasyn 07/10: Continue IV Unasyn 4. History of mechanical AVR on warfarin with supratherapeutic INR ? Goal INR 2.5-3.5. INR 4.0 on admit, was 6.1 on 07/05. Given that patient had a subtherapeutic INR on recent admission about 2 to 3 weeks ago and hemoglobin is stable from yesterday, will hold home warfarin but not give any vitamin K at this time. Monitor daily INR. 07/08 INR is still high at 3.5. Continue holding warfarin and hematuria has not completely stopped. 07/09 INR 2.2. Warfarin started lower dose 3 mg daily. Monitor INR. 07/10: INR 1.8. Warfarin 5 mg 1 dose now and then PT/INR check tomorrow AM and titrate the dose of warfarin accordingly. 5. History of recent GI bleed ? See Dr. Espinoza's office note from 06/09 for further details. In short, had GI bleed in February 2023. Had EGD and colonoscopy both done at that time. Colonoscopy findings were consistent with ischemic colitis. EGD showed reflux esophagitis with multiple duodenal ulcers with no recent signs of bleeding. Did have positive occult stool in the ED on 07/06. Patient however denies any dark or bloody bowel movements recently. CT abdomen pelvis without contrast on 06/30 was limited, no significant bowel findings noted. GI consulted for further recommendations. 6. History of recent CVA with mild dysarthria and debility ? Hospitalized here from 06/19-06/21. Neurology evaluated on 06/20, see that note for further details. Presented at that time with slurred speech and aphasia, which have significantly improved. No motor symptoms but is fairly weak and debilitated at baseline. Has had home health care services since discharge on 06/21. PT/OT/case management consulted. Patient would prefer to go home with home health care again on discharge. 7. History of neuroendocrine tumor ? Follows with Dr. Espinoza, see office note from 06/09 for further details. Continue outpatient monitoring. 8. 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 Follows Dr. Espinoza. Recent stool positive for C. difficile toxin but negative for antigen, no need for antibiotic therapy. Chronic medical conditions: ? Obesity: BMI 39 on admit. Complicated hospital course, care and prognosis. ? Paroxysmal A-fib, bradyarrhythmia: Follows with [facility]. Stable. Continue home Toprol and flecainide. ? Gout: Continue home allopurinol. ? Hypertension: Stable. Continue home amlodipine and Toprol. ? Overactive bladder: Continue home med. ? Seizure disorder: Continue home Keppra and oxcarbazepine. ? Hypothyroidism: Continue home Synthroid. ? Mood disorder: Continue home duloxetine, nortriptyline, mirtazapine at night as needed. ? Cognitive impairment: Continue home memantine. ? Hyperlipidemia: Continue home statin. ? Chronic pain: Continue home hydrocodone?acetaminophen twice daily as needed. ? Asthma: Stable on room air. Continue home fluticasone. DVT prophylaxis: SCDs CODE STATUS: DNR CCA, DNI Charges/Coding Visit Charges Inpatient E&M: 33798 Subs Hosp L2
[2023-07-11] MEDS: Ferrous Sulfate 325 MG Tablet PO (14:15)
[2023-07-11] MEDS: Ascorbic Acid 500 MG Tablet PO (18:52)
[2023-07-11] MEDS: Amox/Clavulanate 500 MG Tablet PO (20:40)
[2023-07-11] MEDS: Nortriptyline 25 MG Capsule 100 MG PO (20:40)
[2023-07-11] MEDS: Atorvastatin Calcium 80 MG Tablet PO (20:40)
[2023-07-12 05:03] LABS: Absolute Lymphocyte Count 1.62 X10^3/uL (0.83-4.51); Absolute Neutrophil Count 5.8 X10^3/uL (2.0-7.7); Basophil# 0.04 X10^3/uL; Basophil% 0.5 % (0-1); Eosinophil# 0.41 X10^3/uL; Eosinophils% 4.8 % (0-5); Hemoglobin 8.2 g/dL (12.0-15.0); Lymphocyte # 1.62 X10^3/ul (0.83-4.51); Lymphocyte % 18.8 % (19-41); Mean Corp Hgb Conc 30.4 g/dL (32-36); Mean Corpuscular Volume 95.4 fL (81-99); Mean Platelet Vol. 9.3 fl (6.2-12.0); Monocyte# 0.67 X10^3/uL; Monocyte% 7.8 % (0-10); NRBC Flagged by Analyzer 0 % (0-5); Neutrophil # 5.84 X10^3/uL (2.7-7.7); Neutrophil % 67.8 % (47-70); Platelet Count 285 K/mm3 (150-450); RBC Distribution Width CV 13.2 % (11.6-14.6); Red Blood Count 2.83 M/mm3 (4.2-5.4); White Blood Count 8.6 K/mm3 (4.4-11.0)
[2023-07-12 05:16] LABS: Prothrombin Time (Protime)PT. 22.8 SECONDS (11.7-14.9)
[2023-07-12 05:23] LABS: Anion Gap 7 (5-15); BUN 31 mg/dL (7-18); BUN/Creat Ratio 20.9 RATIO (10-20); Chloride 111 mmol/L (98-107); Creatinine, Serum 1.48 mg/dL (0.55-1.02); EST Glomerular Filtration Rate 36 mL/min (>60); Est Glom Filt Rate - Afr Amer 44 mL/min (>60); Estimated Creatinine Clearance 35.54 ml/min; Glucose 86 mg/dL (74-106); Potassium 3.6 mmol/L (3.5-5.1); Sodium Level 143 mmol/L (136-145)
[2023-07-12] MEDS: Levothyroxine 100 MCG Tablet PO (05:29)
[2023-07-12 05:32] VITALS: BP 124/57; PULSE 63; RESP 16; TEMP 36.7; O2SAT 95
[2023-07-12 06:50] VITALS: PULSE 68; RESP 18; O2SAT 97
[2023-07-12] MEDS: Budesonide Respules 0.5 MG/2 ML AMPUL.NEB. INHALATION (06:50)
[2023-07-12] MEDS: Allopurinol 100 MG Tablet PO (08:52)
[2023-07-12] MEDS: Amox/Clavulanate 500 MG Tablet PO (08:53)
[2023-07-12] MEDS: Ascorbic Acid 500 MG Tablet PO (08:54)
[2023-07-12 08:59] LABS: Vitamin B12 277 pg/mL (211-911)
[2023-07-12 09:00] VITALS: BP 134/58; PULSE 80; RESP 16; TEMP 36.6; O2SAT 96
[2023-07-12 09:08] VITALS: BP 134/58; PULSE 80
[2023-07-12] MEDS: DULoxetine Hcl 60 MG Capsule PO (09:08)
[2023-07-12] MEDS: Metoprolol(XL)Succ 25 MG Tablet 12.5 MG PO (09:08)
[2023-07-12] MEDS: amLODIPine 10 MG Tablet PO (09:09)
[2023-07-12] MEDS: levETIRAcetam 1,000 MG Tablet 1000 MG PO (09:09)
[2023-07-12] MEDS: Flecainide 100 MG Tablet PO (09:10)
[2023-07-12] MEDS: Lactobacillis Acidophilus 1 CAP PO (09:10)
[2023-07-12] MEDS: Memantine Hydrochloride 10 MG Tablet PO (09:11)
[2023-07-12] MEDS: Pantoprazole Sodium 40 MG Tablet PO (09:11)
[2023-07-12] MEDS: Vibegron 75 MG TABLET PO (09:11)
[2023-07-12] MEDS: OXcarbazepine 150 MG Tablet PO (09:11)
--- NOTE | 2023-07-12 09:17 | PCM.DC.SUM ---
Providers Date of Admission: 07/07/23 Date of Discharge: 07/12/23 Primary Care Physician: Dr. Kishore Ricci MD Consultations 07/07/23 21:30 Consult: Gastroenterology Routine Consulting Provider: [facility] Reason for Consult: concern for recurrent GIB, supratherapeutic INR EMERGENT Consult: No Notified: Yes Date Notified: 07/07/23 Time Notified: 20:34 Method of Notification: ED Physician Initiated Consult: Urology Routine Consulting Provider: Katelin Cordoba Reason for Consult: recurrent hematuria EMERGENT Consult: No Notified: Yes Date Notified: 07/07/23 Time Notified: 20:33 Method of Notification: ED Physician Initiated 07/08/23 11:43 Consult: Infectious Disease Routine Consulting Provider: Harshal Brown Reason for Consult: Enteroccus and Kleb in Urine cx, DR Cordoba office culture EMERGENT Consult: No Notified: Yes Date Notified: 07/08/23 Time Notified: 11:43 Method of Notification: Text Reason For Visit: HEMATURIA, MELENA, SUPRATHERAPEUTIC INR Diagnosis Discharge Diagnosis (1) Hematuria: Status: Inactive Code(s): R31.9 - Hematuria, unspecified (2) Supratherapeutic INR: Status: Acute Code(s): R79.1 - Abnormal coagulation profile Plan Patient is having intermittent hematuria since 06/27 and her INR was 5.8. Denies any burning micturition. She stated she also had stool mixed with blood but denies any bright red on tissue paper. She was seen in ED on 06/25 for hematuria and benign CT abdomen pelvis. She was discharged to see urologist. She saw urologist Dr. Katelin Cordoba on 07/05 and had urine culture in the office. She was then sent to ED and admitted. 1. Hematuria most likely due to supratherapeutic INR from warfarin ? Dr. Cordoba with Urology consulted. Suspect supratherapeutic INR is a strong contributor. Triple-lumen catheter and CBI to clear hematuria. Plan for cystoscopy later on after UTI clears Holding home warfarin, monitoring daily INR as noted below. 07/08: No plan for cystoscopy continue IV antibiotic. 07/09: Hematuria resolved. Continue IV antibiotic. Plan for outpatient cystoscopy by Dr. Cordoba 07/10: urine is clear. Hematuria has stopped. Discussed with Dr. Katelin Cordoba patient's daughter call that she is very worried about patient going with low INR and also at the same time worried about shooting up INR suddenly and hematuria. Therefore decided to keep 1 more day. 07/11: Urine is clear. 2. Acute blood loss anemia in setting of chronic anemia ? Hemoglobin 9.1 on admit. Also 9.1 on 07/05, but baseline was previously 10-11. Presume secondary to blood loss from hematuria with possible blood loss from the GI tract as well. Holding warfarin and trending daily INR as noted below. Trend daily CBC. Urology and GI consulted. 07/08: Hemoglobin stabilized around 8 g. IV iron infusion ordered 07/09: Hemoglobin 7.4. Iron workup ordered. 07/10 iron profile shows low iron 38, TIBC normal iron saturation 13% low ferritin 44 therefore has mixed iron versus anemia anemia of chronic disease. IV iron ordered. 07/11:Prescription for ferrous fumarate and ascorbic acid given. Follow-up PCP 3. Enterococcus and Klebsiella UTI: Urine culture from 07/[address] Katelin Cordoba office shows Enterococcus and Klebsiella, more than 1000 colonies resistant to ceftriaxone but sensitive to Cipro. ID consult requested patient also had mechanical AV valve. Blood cultures ordered as precautionary measure. UA showed negative leukocyte esterase and nitrates, 25-50 WBCs, 2+ bacteria. Urine culture ordered. Patient not having classic UTI symptoms, primary concern is hematuria. No leukocytosis and no systemic signs of infection. As Cipro does not have good in situ sensitivity and only moderate activity against enterococci, not first drug of choice therefore selected Unasyn to cover both Enterococcus and Klebsiella. Last urine culture from 02/22/2023 grew pansensitive E. coli. Given 1 dose of ceftriaxone in the ED, will continue ceftriaxone for now. Follow-up urine culture. 07/08: Urine culture from 07/06 growing Klebsiella pneumoniae and GPC possible Enterococcus 80,000-100,000 colonies. Continue IV Unasyn. ID consult appreciated. 07/09 continue IV Unasyn 07/10: Continue IV Unasyn 07/11: Prescription for Augmentin given. Gladys does not have much warfarin drug to drug interaction. 4. History of mechanical AVR on warfarin with supratherapeutic INR ? Goal INR 2.5-3.5. INR 4.0 on admit, was 6.1 on 07/05. Given that patient had a subtherapeutic INR on recent admission about 2 to 3 weeks ago and hemoglobin is stable from yesterday, will hold home warfarin but not give any vitamin K at this time. Monitor daily INR. 07/08 INR is still high at 3.5. Continue holding warfarin and hematuria has not completely stopped. 07/09 INR 2.2. Warfarin started lower dose 3 mg daily. Monitor INR. 07/10: INR 1.8. Warfarin 5 mg 1 dose now and then PT/INR check tomorrow AM and titrate the dose of warfarin accordingly. 07/11: INR is 2.0. Recommended and discharged on warfarin 4 mg daily and advised daily INR check as patient has very narrow window of therapeutic INR with risk of bleeding or low INR which is risk for thromboembolism/mechanical AV valve 5. History of recent GI bleed ? See Dr. Espinoza's office note from 06/09 for further details. In short, had GI bleed in February 2023. Had EGD and colonoscopy both done at that time. Colonoscopy findings were consistent with ischemic colitis. EGD showed reflux esophagitis with multiple duodenal ulcers with no recent signs of bleeding. Did have positive occult stool in the ED on 07/06. Patient however denies any dark or bloody bowel movements recently. CT abdomen pelvis without contrast on 06/30 was limited, no significant bowel findings noted. GI consulted for further recommendations. 6. History of recent CVA with mild dysarthria and debility ? Hospitalized here from 06/19-06/21. Neurology evaluated on 06/20, see that note for further details. Presented at that time with slurred speech and aphasia, which have significantly improved. No motor symptoms but is fairly weak and debilitated at baseline. Has had home health care services since discharge on 06/21. PT/OT/case management consulted. Patient would prefer to go home with home health care again on discharge. 7. History of neuroendocrine tumor ? Follows with Dr. Espinoza, see office note from 06/09 for further details. Continue outpatient monitoring. 8. 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 Follows Dr. Espinoza. Recent stool positive for C. difficile toxin but negative for antigen, no need for antibiotic therapy. Chronic medical conditions: ? Obesity: BMI 39 on admit. Complicated hospital course, care and prognosis. ? Paroxysmal A-fib, bradyarrhythmia: Follows with [facility]. Stable. Continue home Toprol and flecainide. ? Gout: Continue home allopurinol. ? Hypertension: Stable. Continue home amlodipine and Toprol. ? Overactive bladder: Continue home med. ? Seizure disorder: Continue home Keppra and oxcarbazepine. ? Hypothyroidism: Continue home Synthroid. ? Mood disorder: Continue home duloxetine, nortriptyline, mirtazapine at night as needed. ? Cognitive impairment: Continue home memantine. ? Hyperlipidemia: Continue home statin. ? Chronic pain: Continue home hydrocodone?acetaminophen twice daily as needed. ? Asthma: Stable on room air. Continue home fluticasone. DVT prophylaxis: SCDs CODE STATUS: DNR CCA, DNI Discharge medication reconciliation done. Discharge follow-up instructions completed. Discharge process discussed with the patient and all questions were answered to patient's satisfaction. Follow with PCP in 1 to 2 weeks Total time spent, exact 35 minutes on discharge meds reconciliation, examination, coordination of care with nurses and ancillary staff, review of imaging and blood test and discussion with the patient on follow-up instructions. Medications at Discharge Home Medications allopurinol 100 mg tablet 100 mg PO DAILY GOUT #90 tabs 02/22/19 levothyroxine 100 mcg tablet 100 mcg PO DAILY THYROID #90 tabs 02/22/19 levetiracetam 1,000 mg tablet (Keppra) 1,000 mg PO BID EPILEPSY 06/06/21 oxcarbazepine 150 mg tablet 150 mg PO BID EPILESPSY 09/12/21 amlodipine 10 mg tablet 10 mg PO DAILY BLOOD PRESSURE 11/25/21 metoprolol succinate 25 mg tablet,extended release 24 hr 12.5 mg PO DAILY HEART #90 tabs 11/25/21 flecainide 100 mg tablet 100 mg PO BID HEART 12/09/21 memantine 10 mg tablet 10 mg PO BID MEMORY 02/22/23 vibegron 75 mg tablet (Gemtesa) 75 mg PO DAILY OVERACTIVE BLADDER 02/22/23 duloxetine 60 mg capsule,delayed release 60 mg PO DAILY DEPRESSION 03/17/23 metaxalone 400 mg tablet 400 mg PO BID MUSCLE SPASMS/PAIN 03/17/23 nitroglycerin 0.4 mg sublingual tablet (Nitrostat) 0.4 mg sublingual Q5M PRN CHEST PAIN 03/17/23 nortriptyline 50 mg capsule 100 mg PO DAILY DEPRESSION 03/17/23 hydrocodone-acetaminophen 5-325mg 5mg-325mg 1 tab PO BID PRN PAIN 03/26/23 Lactobacillus acidophilus 250 million cell capsule (Probiotic Acidophilus) 1,000 mmu cells PO DAILY asthma 04/14/23 cholecalciferol (vitamin D3) 50 mcg (2,000 unit) capsule (D3-2000) 2,000 unit PO DAILY vitamin 06/20/23 omeprazole 40 mg capsule,delayed release 40 mg PO DAILY reflux 06/20/23 fluticasone propionate 220 mcg/actuation HFA aerosol inhaler 2 inh inhalation BID asthma 06/21/23 rosuvastatin 40 mg tablet 40 mg PO QHS 1 month #30 tabs 06/22/23 warfarin 6 mg tablet (Jantoven) 6 mg PO DAILY@1700 30 days #30 tabs 06/22/23 mirtazapine 7.5 mg tablet 3.75 - 7.5 mg PO QHS PRN antidepressant 07/07/23 amoxicillin 500 mg-potassium clavulanate 125 mg tablet (Augmentin) 1 tab PO BID 5 days #10 tabs 07/11/23 ascorbic acid (vitamin C) 500 mg tablet 500 mg PO BID #60 tabs 07/11/23 ferrous fumarate 324 mg (106 mg iron) tablet 324 mg PO DAILY 1 month #30 tabs 07/11/23 warfarin 4 mg tablet 4 mg PO DAILY BLOOD THINNER #7 tabs 07/11/23 Physical Exam Narrative Seen and examined No acute issues overnight. Hemoglobin 8.2. Urine is clear. No hematuria. No chest pain or shortness of breath. INR 2.0. Physical exam General: Alert, Oriented x3, Cooperative HEENT: Atraumatic, PERRLA, EOMI, Normocephalic Oral: No Gingival or Mucosal Lesions/ Ulcerations Neck: Supple, No JVD, Negative Carotid Bruits Chest wall/Lungs: Air entry diminished in bilateral lung bases. No crepitation/rhonchi Cardiovascular: Regular rate. Mechanical click sound of artificial aortic valve. No appreciable regurg murmur. Abdomen: Bowel Sounds Present, Soft, Non Tender, Non-Distended : Hematuria resolved no dysuria. No renal angle tenderness. No suprapubic tenderness. Extremities: No edema, Capillary Refill Less than 3 Seconds Skin: Bruises in the abdomen from Lovenox shot Musculoskeletal: No Tenderness to Palpation of Joints or Extremities Neurological: Cranial nerves II-XII grossly intact, DTR 2+/4. No acute focal neurological deficit. Psych/Mental Status: Normal Affect, Appropriate. Weight / BMI Weight Weight: 228 lb 6.382 oz Body Mass Index (BMI) 39.2 ABG / Lab / Microbiology Data 07/12/23 04:20 07/12/23 04:20 Laboratory: Laboratory Results - last 24 hr 07/10/23 15:45: Vitamin B12 277 07/12/23 04:20: WBC 8.6, RBC 2.83 L, Hgb 8.2 L, Hct 27.0 L, MCV 95.4, MCH 29.0, MCHC 30.4 L, RDW Std Deviation 46.0 H, RDW Coeff of Pravin 13.2, Plt Count 285, MPV 9.3, Immature Gran % (Auto) 0.300, Neut % (Auto) 67.8, Lymph % (Auto) 18.8 L, [place] % (Auto) 7.8, Eos % (Auto) 4.8, Baso % (Auto) 0.5, Absolute Neuts (auto) 5.8, Absolute Lymphs (auto) 1.62, Nucleated RBC % 0, PT 22.8 H, INR 2.0, Sodium 143, Potassium 3.6, Chloride 111 H, Carbon Dioxide 25.0, Anion Gap 7, BUN 31 H, Creatinine 1.48 H, Estim Creat Clear Calc 35.54, Est GFR (MDRD) Af Amer 44 L, Est GFR (MDRD) Non-Af 36 L, BUN/Creatinine Ratio 20.9 H, Glucose 86, Calcium 9.0 Microbiology: Microbiology 07/07/23 19:10 Urine Catheter - Catheter Urine Culture - Final Klebsiella pneumoniae sp pneum Enterococcus faecium 07/08/23 12:55 Blood Culture (Wb) - Anticubital Right Blood Culture - Preliminary No growth in 48 hours. 07/08/23 12:15 Blood Culture (Wb) - Anticubital Right Blood Culture - Preliminary No growth in 48 hours. 07/07/23 18:37 Stool Stool Occult Blood (AGNIESZKA) - Final Occult Blood Positive D/C Instructions Discharge Diet: Low fat / Low cholesterol and 2000 mg Sodium Diet Weight Bearing Status: Weight bearing as tolerated Call your doctor if you observe: Fever of 101 or Higher, Coldness, Increased Pain, Numbness or Tingling, Change in Color, Inability to urinate, Inability to have a bowel movement, Using more than 1 pad per hour, Shortness of breath, Dizziness, Fainting spells, Swelling in the ankles, Chest pain, Prolonged hiccupping, Increased palpitations (irregular heartbeat) and Calf discomfort When: IN 2 WEEKS Meaningful Use Info Meaningful Use Meaningful Use Diagnoses (Choose all that apply): None applicable Ischemic Stroke Statin Dosing Therapy Reference: STATIN DOSE THERAPY REFERENCE: * Patients > 75 years receive moderate or high dose statin therapy. * Patients 75 years or YOUNGER should receive HIGH intensity statin dose unless contraindicated. You will be required to document reason for non-treatment if statin daily dose does not meet guidelines. HIGH DOSE STATIN THERAPY DAILY Atorvastatin > than or = to 40 mg Rosuvastatin > than or = to 20 mg Amlodipine + Atorvastatin > than or = to 2.5/40 mg Ezetimibe + Simvastatin 10/80 mg Simvastatin 80mg Discharge Plan Admission Admit Date/Time: 07/07/23 20:26 Attending Provider: Zhao Estrada Primary Care Provider: Kishore Ricci Consulting Providers: Katelin Cordoba; Sav Edmond; Harshal Brown Instructions Additional Instructions / Restrictions: Start warfarin from 07/12/23. Advised to keep INR around 2.5, range 2.0-2.5. INR Tomorrow am Discharge Orders/Prescriptions Prescriptions: New amoxicillin-pot clavulanate [Augmentin] 500-125 mg tablet 1 tab PO BID 5 Days Qty: 10 0RF ferrous fumarate 324 mg (106 mg iron) tablet 324 mg PO DAILY 30 Days Qty: 30 2RF ascorbic acid (vitamin C) 500 mg tablet 500 mg PO BID Qty: 60 2RF Continued allopurinol 100 mg tablet 100 mg PO DAILY Qty: 90 levothyroxine 100 mcg tablet 100 mcg PO DAILY Qty: 90 levetiracetam [Keppra] 1,000 mg tablet 1,000 mg PO BID amlodipine 10 mg tablet 10 mg PO DAILY oxcarbazepine 150 mg tablet 150 mg PO BID hydrocodone-acetaminophen 5-325 mg tablet 1 tab PO BID PRN (Reason: PAIN ) Patient Comments: PT STATES TAKES NEEDED (03-18-23) metoprolol succinate 25 mg tablet extended release 24 hr 12.5 mg PO DAILY Qty: 90 Probiotic Acidophilus 250 million cell capsule 1,000 mmu cells PO DAILY Gemtesa 75 mg tablet 75 mg PO DAILY memantine 10 mg tablet 10 mg PO BID nortriptyline 50 mg capsule 100 mg PO DAILY metaxalone 400 mg tablet 400 mg PO BID duloxetine 60 mg capsule,delayed release(DR/EC) 60 mg PO DAILY nitroglycerin [Nitrostat] 0.4 mg tablet, sublingual 0.4 mg sublingual Q5M PRN (Reason: CHEST PAIN ) Rx Instructions: do not exceed 3 doses per episode cholecalciferol (vitamin D3) [D3-2000] 50 mcg (2,000 unit) capsule 2,000 unit PO DAILY omeprazole 40 mg capsule,delayed release(DR/EC) 40 mg PO DAILY fluticasone propionate 220 mcg/actuation HFA aerosol inhaler 2 inh inhalation BID rosuvastatin 40 mg tablet 40 mg PO QHS 30 Days Qty: 30 4RF mirtazapine 7.5 mg tablet 3.75 - 7.5 mg PO QHS PRN (Reason: antidepressant) warfarin 4 mg tablet 4 mg PO DAILY Qty: 7 0RF Protocol: Dose Management Condition: Wednesday Dose/Route: 6 mg Instruction: 1 x 6 mg tablet Condition: Wednesday Dose/Route: 4 mg Instruction: 1 x 4 mg tablet Condition: Wednesday Dose/Route: 4 mg Instruction: 1 x 4 mg tablet Condition: Wednesday Dose/Route: 0 mg Instruction: 0 tablets Condition: Dose/Route: 0 mg Instruction: 0 tablets Condition: Wednesday Dose/Route: 4 mg Instruction: 1 x 4 mg tablet Condition: Wednesday Dose/Route: 4 mg Instruction: 1 x 4 mg tablet Protocol Text: Adjustment Start Date: Wednesday07/07/23 INR Value: 6.1 INR Date: 07/07/23 Recheck Date: 07/09/23 Patient Comments: family states shes supposed to take none on 07/07/23 and 07/08/23 and start back on the depending on INR Rx Instructions: Start from 07/12/23. INR Tomorrow am flecainide 100 mg tablet 100 mg PO BID Held warfarin [Jantoven] 6 mg Tablet 6 mg PO DAILY@1700 30 Days Qty: 30 1RF Hold Instructions: Hold it,pt on lower dose of warfarin Protocol: Dose Management Condition: Wednesday Dose/Route: 6 mg Instruction: 1 x 6 mg tablet Condition: Wednesday Dose/Route: 4 mg Instruction: 1 x 4 mg tablet Condition: Wednesday Dose/Route: 4 mg Instruction: 1 x 4 mg tablet Condition: Wednesday Dose/Route: 0 mg Instruction: 0 tablets Condition: Dose/Route: 0 mg Instruction: 0 tablets Condition: Wednesday Dose/Route: 4 mg Instruction: 1 x 4 mg tablet Condition: Wednesday Dose/Route: 4 mg Instruction: 1 x 4 mg tablet Protocol Text: Adjustment Start Date: Wednesday07/07/23 INR Value: 6.1 INR Date: 07/07/23 Recheck Date: 07/09/23 Patient Comments: family states shes supposed to take none on 07/07/23 and 07/08/23 and start back on the depending on INR Rx Instructions: Keep INR between 2.5-3.5, average 3.0. Hold if INR more than 3.5 Referrals / Follow Up: Gabriel Leblanc MD [Med Staff - Active Staff] - 07/13/23 (As previously scheduled ) Katelin Cordoba MD [Med Staff - Active Staff] - Within 1 Week Kishore Ricci MD [Primary Care Provider] - Disposition Disposition (needs filled in before D/C Order can be placed): Home Health Service Charges/Coding Visit Charges Inpatient E&M: 59679 Disch Hosp >30min
--- NOTE | 2023-07-12 11:11 | PHA.DC.MC.R ---
Pharmacy [facility] Service has performed discharge medication reconciliation and counseling for this patient. The patient's discharge medication list was reviewed for discrepancies and discrepancies were resolved. The patient was counseled on the following discharge medications and changes in medications for homegoing were reviewed. The Reason for Use, instructions for use, and potential side effects were reviewed for all new medications. The patient's questions regarding all of their medications were answered. 1. Amoxicillin/clavulanate 500-125 mg PO BID x 5 days 2. Ferrous fumarate 324 mg PO daily 3. Ascorbic acid 500 mg PO BID The patient was able to verbally demonstrate an understanding of their discharge medications. Medications at Discharge Home Medications allopurinol 100 mg tablet 100 mg PO DAILY GOUT #90 tabs 02/22/19 levothyroxine 100 mcg tablet 100 mcg PO DAILY THYROID #90 tabs 02/22/19 levetiracetam 1,000 mg tablet (Keppra) 1,000 mg PO BID EPILEPSY 06/06/21 oxcarbazepine 150 mg tablet 150 mg PO BID EPILESPSY 09/12/21 amlodipine 10 mg tablet 10 mg PO DAILY BLOOD PRESSURE 11/25/21 metoprolol succinate 25 mg tablet,extended release 24 hr 12.5 mg PO DAILY HEART #90 tabs 11/25/21 flecainide 100 mg tablet 100 mg PO BID HEART 12/09/21 memantine 10 mg tablet 10 mg PO BID MEMORY 02/22/23 vibegron 75 mg tablet (Gemtesa) 75 mg PO DAILY OVERACTIVE BLADDER 02/22/23 duloxetine 60 mg capsule,delayed release 60 mg PO DAILY DEPRESSION 03/17/23 metaxalone 400 mg tablet 400 mg PO BID MUSCLE SPASMS/PAIN 03/17/23 nitroglycerin 0.4 mg sublingual tablet (Nitrostat) 0.4 mg sublingual Q5M PRN CHEST PAIN 03/17/23 nortriptyline 50 mg capsule 100 mg PO DAILY DEPRESSION 03/17/23 hydrocodone-acetaminophen 5-325mg 5mg-325mg 1 tab PO BID PRN PAIN 03/26/23 Lactobacillus acidophilus 250 million cell capsule (Probiotic Acidophilus) 1,000 mmu cells PO DAILY asthma 04/14/23 cholecalciferol (vitamin D3) 50 mcg (2,000 unit) capsule (D3-2000) 2,000 unit PO DAILY vitamin 06/20/23 omeprazole 40 mg capsule,delayed release 40 mg PO DAILY reflux 06/20/23 fluticasone propionate 220 mcg/actuation HFA aerosol inhaler 2 inh inhalation BID asthma 06/21/23 rosuvastatin 40 mg tablet 40 mg PO QHS 1 month #30 tabs 06/22/23 warfarin 6 mg tablet (Jantoven) 6 mg PO DAILY@1700 30 days #30 tabs 06/22/23 mirtazapine 7.5 mg tablet 3.75 - 7.5 mg PO QHS PRN antidepressant 07/07/23 amoxicillin 500 mg-potassium clavulanate 125 mg tablet (Augmentin) 1 tab PO BID 5 days #10 tabs 07/11/23 ascorbic acid (vitamin C) 500 mg tablet 500 mg PO BID #60 tabs 07/11/23 ferrous fumarate 324 mg (106 mg iron) tablet 324 mg PO DAILY 1 month #30 tabs 07/11/23 warfarin 4 mg tablet 4 mg PO DAILY BLOOD THINNER #7 tabs 07/11/23
--- NOTE | 2023-07-12 11:25 | CASEMGMT ---
TC diana Salinas at [facility], updated that pt to dc today.
[2023-07-12 11:55] VITALS: BP 105/57; PULSE 94; RESP 18; TEMP 36.8; O2SAT 93
== END 2023-07-12 11:52 | disposition home health service (06) | DRG 813 ==
LOC: ED 20:12 → MS3 20:22
PROVIDERS: Admitting Provider Hospitalist; Emergency Provider Student in an Organized Health Care Education/Training Program; PCP Family Medicine; Visit Provider Internal Medicine
DX: D68.32 Hemorrhagic disorder due to extrinsic circulating 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s (principal); D62 Acute posthemorrhagic anemia; I13.0 Hypertensive heart and chronic kidney disease with heart failure and stage 1 through stage 4 chronic kidney disease, or unspecified chronic kidney disease; N18.4 Chronic kidney disease, stage 4 (severe); Z68.41 Body mass index [BMI] 40.0-44.9, adult; N39.0 Urinary tract infection, site not specified; I50.9 Heart failure, unspecified; G40.909 Epilepsy, unspecified, not intractable, without status epilepticus; I48.0 Paroxysmal atrial fibrillation; B96.1 Klebsiella pneumoniae [K. pneumoniae] as the cause of diseases classified elsewhere; E03.9 Hypothyroidism, unspecified; J45.909 Unspecified asthma, uncomplicated; F32.A Depression, unspecified; M10.9 Gout, unspecified; E78.5 Hyperlipidemia, unspecified; G43.909 Migraine, unspecified, not intractable, without status migrainosus; I25.2 Old myocardial infarction; R31.9 Hematuria, unspecified; R79.1 Abnormal coagulation profile; E66.9 Obesity, unspecified; B95.2 Enterococcus as the cause of diseases classified elsewhere; Z79.899 Other long term (current) drug therapy; Z79.01 Long term (current) use of 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s; Z86.73 Personal history of transient ischemic attack (TIA), and cerebral infarction without residual deficits
CPT/HCPCS: 36415; 80048; 80053; 81001; 82274; 82607; 82728; 83540; 83550; 85014; 85018; 85025; 85027; 85045; 85610; 86850; 86900; 86901; 87040; 87077; 87086; 87088; 87186; 88108; 88313; 93005; 94640; 97110; 97162; 97166; 97530; 97535; 99284; J7030; J7050; P9612; A4216; J0295

== ENCOUNTER 2023-07-17 11:00 | Inpatient (IN) | payer MEDICARE, OTHER, SELFPAY ==
--- NOTE | 2023-07-17 12:15 | HP.PCM_ITS ---
HPI - General General Date of Admission: 07/17/23 Date of Service: 07/19/23 Chief Complaint: Here for rehabilitation. HPI Narrative 07/07/2023 CHANNING CANCHOLA, is a 78 Female who presents to [facility] ED with GI bleed. Sent to ER for acute on chronic anemia. History of supratherapeutic INR, Hematuria, GI bleed. Recent on stroke, on coumadin, INR labile. No black or bloody stools, but bright red blood in urine. Feels weak, but able to walk, sleeping alot. Hemoccult positive, INR 4.0. UA c/w UTI, Rocephin given, urine culture sent. Discussed with Dr. Espinoza, Dr. Cordoba. 07/07/2023 Admit [facility]. Consult Dr. Cordoba for hematuria. Rocephin IV for UTI, urine culture pending. Hold warfarin for mechanical AVR due to bleeding. Consult Dr. Espinoza for GI bleed. PT/OT for discharge planning. 07/08/2023 CBI to clear for hematuria. Hold warfarin for bleeding. Rocephin IV for enterococcus/Klebsiella UTI. PT/OT for recent stroke. 07/08/2023 Dr. Cordoba recommended 24 hour santos with manual irrigation PRN. Cystoscopy once infection clears. 07/08/2023 Dr. Brown recommended Unasyn IV, Enterococcus-like, Klebsiella UTI. Blood cultures negative to date. 07/09/2023 Hemoglobin 8, IV iron given. 07/10/2023 Hematuria resolved, continue IV antibiotics, Dr. Cordoba cystoscopy outpatient. Hemoglobin 7.4, Iron workup ordered. Unasyn IV for UTI. PT/OT for debility, warfarin 3mg started. 07/11/2023 Urine clear. IV iron for iron deficiency anemia. Unasyn IV for UTI. Warfarin 5mg, INR in AM. PT/OT [facility]. 07/12/2023 Discharge home with [facility]. Iron, Vitamin C for anemia. Warfarin 4mg, INR 2.0, for mechanical AVR. 07/16/2023 Failed home discharge. 07/17/2023 Admit to TCU with debility, here for rehabilitation, strengthening, prior to discharge home alone. [facility] Medical History (Updated 07/17/23 @ 12:[address] Virgil Jimenez MD) Acute UTI Anemia Aortic stenosis with bicuspid valve Ascending aortic aneurysm Asthma Atrial fibrillation Chronic pain Congestive heart failure (CHF) CVA (cerebral vascular accident) Dementia Depression Esophageal reflux Essential hypertension GERD (gastroesophageal reflux disease) GI bleed Gross hematuria Head injuries History of gout History of venous thrombosis and embolism Hyperparathyroidism Hypertension Hyperuricemia Hypothyroidism Hypothyroidism Kidney stones [facility] current use of 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 Migraines Migraines Myocardial infarct Near syncope Paroxysmal atrial fibrillation Physical debility Seizure disorder Seizures Sleep apnea Spinal stenosis Stage 4 chronic kidney disease Stroke/cerebrovascular accident Thoracic aortic aneurysm (TAA) Urine retention Home Medications allopurinol 100 mg tablet 100 mg PO DAILY GOUT #90 tabs 02/22/19 [History Last Taken 07/07/23] levothyroxine 100 mcg tablet 100 mcg PO DAILY THYROID #90 tabs 02/22/19 [History Last Taken 07/07/23] levetiracetam 1,000 mg tablet (Keppra) 1,000 mg PO BID EPILEPSY 06/06/21 [History Last Taken 07/07/23] oxcarbazepine 150 mg tablet 150 mg PO BID EPILESPSY 09/12/21 [History Last Taken 07/07/23] metoprolol succinate 25 mg tablet,extended release 24 hr 12.5 mg PO DAILY HEART #90 tabs 11/25/21 [History Last Taken 07/07/23] flecainide 100 mg tablet 100 mg PO BID HEART 12/09/21 [History Last Taken 07/07/23] memantine 10 mg tablet 10 mg PO BID MEMORY 02/22/23 [History Last Taken 07/07/23] vibegron 75 mg tablet (Gemtesa) 75 mg PO DAILY OVERACTIVE BLADDER 02/22/23 [History Last Taken 07/07/23] duloxetine 60 mg capsule,delayed release 60 mg PO DAILY DEPRESSION 03/17/23 [History Last Taken 07/07/23] metaxalone 400 mg tablet 400 mg PO BID MUSCLE SPASMS/PAIN 03/17/23 [History Last Taken 07/07/23] nitroglycerin 0.4 mg sublingual tablet (Nitrostat) 0.4 mg sublingual Q5M PRN CHEST PAIN 03/17/23 [History Last Taken Unknown] nortriptyline 50 mg capsule 100 mg PO 2000 DEPRESSION 03/17/23 [History Last Taken 07/07/23] hydrocodone-acetaminophen 5-325mg 5mg-325mg 1 tab PO BID PRN PAIN 03/26/23 [History Last Taken 07/07/23] Lactobacillus acidophilus 250 million cell capsule (Probiotic Acidophilus) 1,000 mmu cells PO DAILY asthma 04/14/23 [History Last Taken 07/07/23] cholecalciferol (vitamin D3) 50 mcg (2,000 unit) capsule (D3-2000) 2,000 unit PO DAILY vitamin 06/20/23 [History Last Taken 07/07/23] omeprazole 40 mg capsule,delayed release 40 mg PO DAILY reflux 06/20/23 [History Last Taken 07/07/23] fluticasone propionate 220 mcg/actuation HFA aerosol inhaler 2 inh inhalation BID asthma 06/21/23 [History Last Taken 07/07/23] rosuvastatin 40 mg tablet 40 mg PO QHS cholesterol 1 month #30 tabs 06/22/23 [Rx Last Taken 07/06/23] warfarin 6 mg tablet (Jantoven) 6 mg PO DAILY@1700 30 days #30 tabs 06/22/23 [Rx Last Taken Unknown] mirtazapine 7.5 mg tablet 3.75 - 7.5 mg PO QHS PRN antidepressant 07/07/23 [Hist ory Last Taken 07/06/23] ascorbic acid (vitamin C) 500 mg tablet 500 mg PO BID vitamin C #60 tabs [Rx Last Taken Unknown] ferrous fumarate 324 mg (106 mg iron) tablet 324 mg PO DAILY iron 1 month #30 tabs 07/11/23 [Rx Last Taken Unknown] warfarin 4 mg tablet 4 mg PO DAILY BLOOD THINNER #7 tabs 07/11/23 [Rx Last Taken 03/17/23] amlodipine 10 mg tablet 5 mg PO DAILY BLOOD PRESSURE 07/13/23 [History Last Taken Unknown] furosemide 40 mg tablet (Lasix) 40 mg PO DAILY #30 tabs 07/13/23 [Rx Last Taken Unknown] ondansetron HCl 4 mg tablet 4 mg PO TID PRN nausea and vomiting 07/17/23 [History Last Taken Unknown] rimegepant 75 mg disintegrating tablet (Nurtec ODT) 75 mg PO QODAY migraines 07/06 [History Last Taken Unknown] Allergy/AdvReac Type Severity Reaction Status Date / Time celecoxib [From Celebrex] Allergy Severe Hives, Verified 07/07/23 16:27 swelling, difficulty breathing Sulfa (Sulfonamide Allergy Severe Hives, Verified 07/07/23 16:27 Antibiotics) swelling, difficulty breathing gemfibrozil AdvReac Intermediate Nausea,myal Verified 07/07/23 16:27 gias Family History Mother CVA (cerebral vascular accident) Breast cancer Hypertension CAD (coronary artery disease) Father Hypertension CAD (coronary artery disease) Surgical History (Updated 07/17/23 @ 12:[address] Virgil Jimenez MD) Fracture of ankle, bimalleolar, left, closed H/O chest tube placement (05/07/01) History of appendectomy History of bilateral breast reduction surgery (2008) History of left heart catheterization (12/07/15) History of loop recorder History of lumpectomy (2009) History of open reduction and internal fixation (ORIF) procedure (11/30/19) History of thumb surgery (2004) History of tilt table evaluation (05/21/16) History of total abdominal hysterectomy (1974) Hx of aortic valve replacement, mechanical (04/05/01) Hx of ascending aorta replacement (04/05/01) Social History household members: none housing: condominium Smoking Status: Never smoker alcohol intake: never substance use type: does not use ROS Constitutional Constitutional: Reports weakness; Denies chills, fever(s) or weight gain ENT HEENT: Denies headache(s), nasal congestion or nasal discharge Cardiovascular Cardiovascular: Denies chest pain or palpitations Respiratory/Chest Respiratory/Chest: Denies cough, excessive phlegm production or shortness of breath with exertion Gastrointestinal Gastrointestinal: Denies abdominal pain, nausea or vomiting Genitourinary Genitourinary: Denies dysuria Musculoskeletal Musculoskeletal: Denies joint pain or joint swelling Integumentary Integumentary: Denies rash or wounds Neurologic Neurologic: Denies focal weakness, numbness or tingling Psychiatric Psychiatric: Denies anxiety, auditory hallucinations, depression, homicidal id eation or suicidal ideation Physical Exam Const alert General Appearance: cooperative HEENT normocephalic Eyes PERRL and EOMs intact bilaterally Neck supple, no JVD and no carotid bruits Resp normal respiratory effort, normal air movement and clear to auscultation bilaterally Cardio regular rate and regular rhythm Cardio Narrative: Click. GI normal to inspection, nondistended, normoactive bowel sounds, non-tender and non-distended Extremity normal capillary refill General Extremity: Negative for edema Skin no rashes or lesions noted General Skin Exam: no breakdown Neuro moves all extremities Psych affect normal Appearance: appropriate Results Lab / Micro Data 07/19/23 05:11 07/19/23 05:11 Assessment & Plan Assessment/Plan (1) Debility: (2) Hematuria: (3) Urinary tract infection: (4) Blood in stool: (5) GI bleed: (6) Iron deficiency anemia: (7) History of aortic valve replacement: (8) CVA (cerebral vascular accident): (9) Gout: (10) Hypothyroidism: QUALIFIERS: Hypothyroidism type: acquired Qualified Code(s): E03.9 - Hypothyroidism, unspecified (11) Seizure disorder: (12) Hypertension: (13) Atrial fibrillation: (14) Vascular dementia: (15) Overactive bladder: (16) Depression: (17) Esophageal reflux: QUALIFIERS: Esophagitis presence: esophagitis presence not specified Qualified Code(s): K21.9 - Gastro-esophageal reflux disease without esophagitis (18) Allergic rhinitis: (19) Hyperlipidemia: QUALIFIERS: Hyperlipidemia type: familial hypercholesterolemia Qualified Code(s): E78.01 - Familial hypercholesterolemia PLAN: Plan 78 year old female with below past medical history hospitalized for hematuria 2/2 hemorrhagic UTI, complicated by GI bleed, supratherapeutic INR, iron deficiency anemia, recent stroke, failed home discharge with [facility], admitted to TCU with debility, here for rehabilitation, strengthening, prior to discharge home alone. * Debility - PT/OT. * Pain - Tylenol 1000mg q6 prn pain (1-5), [place] 5/325mg bid prn pain (6-10). * Bowel - senna/colace 1 tablet bid, Dulcolax 10mg po daily prn. * Adult immunization - Administer pneumonia vaccine, covid vaccine, flu vaccine as appropriate. * DVT prophylaxis - on warfarin. * Iron deficiency anemia - Ferrex 150mg daily, Vitamin C 500mg daily. * Gout - Allopurinol 100mg daily. * Hypothyroidism - Levothyroxine 100mcg daily. * Seizure disorder - Keppra 1000mg bid, Oxcarbazepine 150mg bid. * Hypertension - Metoprolol succinate 12.5mg daily, Amlodipine 5mg daily. * Overactive bladder - Gemtesa 75mg daily. * Vascular dementia - Memantine 10mg bid. * Insomnia - Nortriptyline 100mg qhs, Mirtazapine 7.5mg qhs prn, stable chronic alf use, GDR not recommended. * Muscle spasm - Skelaxin 400mg bid. * Depression - Duloxetine 60mg daily, stable chronic alf use, GDR not recommended. * Vitamin D deficiency - D3 2000IU daily. * GERD - Pantoprazole 40mg daily. * Allergic rhinitis - Flonase 220mcg 2 puffs nasal bid. * Hyperlipidemia - Atorvastatin 80mg qhs. * Atrial fibrillatin - Metoprolol 12.5mg daily, Flecainide 100mg bid, warfarin 4mg daily monitor INR. * Hx of AVR - Warfarin 4mg daily, monitor INR. * Stroke - Warfarin 4mg daily, monitor INR.
[2023-07-17 12:43] VITALS: BP 118/55; PULSE 78; RESP 18; TEMP 36.4; O2SAT 98; BMI 39.9
[2023-07-17 13:42] LABS: Absolute Lymphocyte Count 0.57 X10^3/uL (0.83-4.51); Absolute Neutrophil Count 6.4 X10^3/uL (2.0-7.7); Basophil# 0.02 X10^3/uL; Basophil% 0.3 % (0-1); Eosinophil# 0.17 X10^3/uL; Eosinophils% 2.3 % (0-5); Hematocrit 26.8 % (37-47); Hemoglobin 8.3 g/dL (12.0-15.0); Lymphocyte # 0.57 X10^3/ul (0.83-4.51); Lymphocyte % 7.6 % (19-41); Mean Corpuscular Hgb 29.3 pg (27.0-32.0); Mean Corpuscular Volume 94.7 fL (81-99); Mean Platelet Vol. 8.8 fl (6.2-12.0); Monocyte# 0.36 X10^3/uL; Monocyte% 4.8 % (0-10); NRBC Flagged by Analyzer 0 % (0-5); Neutrophil # 6.38 X10^3/uL (2.7-7.7); Neutrophil % 84.7 % (47-70); POSITIVE DIFFERENTIAL YES; Platelet Count 237 K/mm3 (150-450); RBC Distribution Width CV 13.3 % (11.6-14.6); RBC Distribution Width SD 45.9 fl (35.1-43.9); Red Blood Count 2.83 M/mm3 (4.2-5.4); White Blood Count 7.5 K/mm3 (4.4-11.0)
[2023-07-17 13:55] LABS: International Normalized Ratio 2.3; Prothrombin Time (Protime)PT. 25.4 SECONDS (11.7-14.9)
[2023-07-17 13:56] LABS: Anion Gap 8 (5-15); BUN 26 mg/dL (7-18); BUN/Creat Ratio 14.4 RATIO (10-20); Calcium,Total 8.2 mg/dL (8.5-10.1); Chloride 108 mmol/L (98-107); Creatinine, Serum 1.81 mg/dL (0.55-1.02); EST Glomerular Filtration Rate 29 mL/min (>60); Est Glom Filt Rate - Afr Amer 35 mL/min (>60); Estimated Creatinine Clearance 29.37 ml/min; Glucose 134 mg/dL (74-106); Potassium 3.2 mmol/L (3.5-5.1); Sodium Level 143 mmol/L (136-145)
[2023-07-17 14:40] VITALS: PULSE 65; RESP 16; O2SAT 95
[2023-07-17] MEDS: Furosemide 40 MG Tablet PO (15:09)
--- NOTE | 2023-07-17 16:40 | NURSING ---
reviewed coumadin orders with Dr Jimenez, K+ level & HGB since recent GI bleed. new orders to recheck HH in AM, BMP recheck in AM, & change coumadin to 3mg daily. rechecking INR on Wednesday.
[2023-07-17] MEDS: Potassium Chloride Oral Tablet 20 MEQ 40 MEQ PO (17:21)
[2023-07-17] MEDS: Ascorbic Acid 500 MG Tablet PO (17:23)
[2023-07-17] MEDS: Fluticasone 0.05% 1 SPRAY NASAL.SRY NASAL (21:16)
[2023-07-17] MEDS: levETIRAcetam 1,000 MG Tablet 1000 MG PO (21:19)
[2023-07-17] MEDS: Nortriptyline 25 MG Capsule 100 MG PO (21:19)
[2023-07-17] MEDS: Senna/Docusate Sodium 1 Tablet PO (21:20)
[2023-07-17] MEDS: Atorvastatin Calcium 80 MG Tablet PO (21:20)
[2023-07-17] MEDS: Memantine Hydrochloride 10 MG Tablet PO (21:20)
[2023-07-17] MEDS: Metaxalone 800 MG Tablet 400 MG PO (21:21)
[2023-07-17] MEDS: Flecainide 100 MG Tablet PO (21:21)
[2023-07-17] MEDS: OXcarbazepine 150 MG Tablet PO (21:23)
[2023-07-18 04:45] LABS: Hematocrit 24.2 % (37-47); Hemoglobin 7.8 g/dL (12.0-15.0)
[2023-07-18 05:15] LABS: Anion Gap 8 (5-15); BUN 31 mg/dL (7-18); BUN/Creat Ratio 18.5 RATIO (10-20); Calcium,Total 8.4 mg/dL (8.5-10.1); Chloride 111 mmol/L (98-107); Creatinine, Serum 1.68 mg/dL (0.55-1.02); EST Glomerular Filtration Rate 31 mL/min (>60); Est Glom Filt Rate - Afr Amer 38 mL/min (>60); Estimated Creatinine Clearance 31.64 ml/min; Glucose 99 mg/dL (74-106); Potassium 3.2 mmol/L (3.5-5.1); Sodium Level 145 mmol/L (136-145)
[2023-07-18] MEDS: Levothyroxine 100 MCG Tablet PO (05:38)
[2023-07-18] MEDS: Iron Polysaccharide Complex 150 MG CAPSULE PO (09:45)
[2023-07-18] MEDS: Allopurinol 100 MG Tablet PO (09:46)
[2023-07-18] MEDS: Ascorbic Acid 500 MG Tablet PO ×2 (09:46→17:29)
[2023-07-18] MEDS: Cholecalciferol (VIT D3) 25 MCG TABLET (1,000 UNITS) 50 MCG PO (09:46)
[2023-07-18] MEDS: Fluticasone 0.05% 1 SPRAY NASAL.SRY NASAL (09:47)
[2023-07-18] MEDS: DULoxetine Hcl 60 MG Capsule PO (09:47)
[2023-07-18] MEDS: Vibegron 75 MG TABLET PO (09:49)
[2023-07-18] MEDS: levETIRAcetam 1,000 MG Tablet 1000 MG PO ×2 (09:50→21:01)
[2023-07-18] MEDS: Pantoprazole Sodium 40 MG Tablet PO (09:50)
[2023-07-18] MEDS: amLODIPine 5 MG Tablet PO (09:50)
[2023-07-18] MEDS: Senna/Docusate Sodium 1 Tablet PO ×2 (09:50→20:58)
[2023-07-18 09:51] VITALS: BP 136/61; PULSE 77
[2023-07-18] MEDS: Metoprolol(XL)Succ 25 MG Tablet 12.5 MG PO (09:51)
[2023-07-18] MEDS: Metaxalone 800 MG Tablet 400 MG PO ×2 (09:51→21:02)
[2023-07-18] MEDS: Flecainide 100 MG Tablet PO ×2 (09:52→20:59)
[2023-07-18] MEDS: OXcarbazepine 150 MG Tablet PO ×2 (09:53→21:02)
[2023-07-18] MEDS: Memantine Hydrochloride 10 MG Tablet PO ×2 (09:53→20:58)
[2023-07-18] MEDS: Tuberculin,Purif.prot.deriv. 50 TU/ML Vial 0.1 ML ID (10:01)
[2023-07-18 10:06] VITALS: BP 136/61; PULSE 77
[2023-07-18] MEDS: Potassium Chloride Oral Tablet 20 MEQ 60 MEQ PO (11:24)
[2023-07-18 13:30] VITALS: PULSE 80; RESP 18; O2SAT 95
[2023-07-18 14:55] VITALS: BP 138/42; PULSE 65; RESP 20; TEMP 36.6; O2SAT 94
--- NOTE | 2023-07-18 20:41 | NURSING ---
Discussed with Dr. Jimenez via telephone regarding patient to follow up with Dr. Cordoba as outpatient prior to admit to TCU for potential cystoscopy. Per Dr. Jimenez contact Dr. Cordoba's office to see when wants to perform procedure. Order repeated back. No hematuria at this time.
[2023-07-18] MEDS: Atorvastatin Calcium 80 MG Tablet PO (20:58)
[2023-07-18] MEDS: Fluticasone Propionate 110 MCG AER.W.ADAP 2 PUFF INHALATION (20:59)
[2023-07-18] MEDS: Nortriptyline 25 MG Capsule 100 MG PO (21:01)
[2023-07-19] MEDS: Levothyroxine 100 MCG Tablet PO (05:28)
[2023-07-19 05:47] LABS: Hematocrit 25.8 % (37-47); Hemoglobin 7.9 g/dL (12.0-15.0)
[2023-07-19 06:29] LABS: Anion Gap 6 (5-15); BUN 35 mg/dL (7-18); BUN/Creat Ratio 23.5 RATIO (10-20); Calcium,Total 8.8 mg/dL (8.5-10.1); Chloride 114 mmol/L (98-107); Creatinine, Serum 1.49 mg/dL (0.55-1.02); EST Glomerular Filtration Rate 36 mL/min (>60); Est Glom Filt Rate - Afr Amer 43 mL/min (>60); Estimated Creatinine Clearance 35.67 ml/min; Glucose 98 mg/dL (74-106); Potassium 4.1 mmol/L (3.5-5.1); Sodium Level 146 mmol/L (136-145)
[2023-07-19 07:05] LABS: International Normalized Ratio 2.8; Prothrombin Time (Protime)PT. 29.2 SECONDS (11.7-14.9)
[2023-07-19] MEDS: Iron Polysaccharide Complex 150 MG CAPSULE PO (09:54)
[2023-07-19] MEDS: Pantoprazole Sodium 40 MG Tablet PO (09:54)
[2023-07-19 09:55] VITALS: BP 131/60; PULSE 62
[2023-07-19] MEDS: amLODIPine 5 MG Tablet PO (09:55)
[2023-07-19] MEDS: Ascorbic Acid 500 MG Tablet PO ×2 (09:55→16:20)
[2023-07-19] MEDS: Allopurinol 100 MG Tablet PO (09:55)
[2023-07-19] MEDS: Metoprolol(XL)Succ 25 MG Tablet 12.5 MG PO (09:55)
[2023-07-19] MEDS: Cholecalciferol (VIT D3) 25 MCG TABLET (1,000 UNITS) 50 MCG PO (09:56)
[2023-07-19] MEDS: Vibegron 75 MG TABLET PO (09:56)
[2023-07-19] MEDS: levETIRAcetam 1,000 MG Tablet 1000 MG PO ×2 (09:57→20:47)
[2023-07-19] MEDS: Flecainide 100 MG Tablet PO ×2 (09:57→20:47)
[2023-07-19] MEDS: Metaxalone 800 MG Tablet 400 MG PO ×2 (09:57→20:47)
[2023-07-19] MEDS: Senna/Docusate Sodium 1 Tablet PO ×2 (09:57→20:46)
[2023-07-19] MEDS: Memantine Hydrochloride 10 MG Tablet PO ×2 (09:57→20:48)
[2023-07-19] MEDS: DULoxetine Hcl 60 MG Capsule PO (09:57)
[2023-07-19] MEDS: Fluticasone Propionate 110 MCG AER.W.ADAP 2 PUFF INHALATION ×2 (09:58→20:45)
[2023-07-19] MEDS: OXcarbazepine 150 MG Tablet PO ×2 (09:58→20:50)
[2023-07-19] MEDS: Bisacodyl 5 MG Tablet 10 MG PO (10:02)
[2023-07-19 10:06] VITALS: BP 131/60; PULSE 62
--- NOTE | 2023-07-19 10:15 | NURSING ---
NOTIFIED OF CONSULT FOR PT DUE TO ANEMIA AND + HEMOCCULT. OFFICE ALSO CALLED TO SEE IF WANTS TO DO THE CYSTOSCOPY WHILE PT IS HERE. OFFICE STATED YES SHE DOES AND WILL GET PAPER WORK STARTED AND WILL LET TCU KNOW. THEY ALSO STATED THERE HOPING TO DO THE PROCEDURE ON July BUT WILL CHECK WITH SURGERY FIRST. RN AWARE
--- NOTE | 2023-07-19 11:13 | PCM.PN.DRR ---
Documented by User: Elizabeth Dinh 07/19/23 11:47 TCU RX Drug Regimen Review Subjective/Objective Subjective/Objective: Subjective: TCU Admission. 78 YOF presented to the ER with a GI bleed. Hospitalized for hematuria 2/2 hemorrhagic UTI, complicated by GI bleed, supratherapeutic INR, iron deficiency anemia, recent stroke, failed home discharge with [facility]. Admitted to TCU with debility for strengthening and rehabilitation. Objective: Allergies celecoxib [From Celebrex] Allergy (Severe, Verified 07/07/23 16:27) Hives, swelling, difficulty breathing Sulfa (Sulfonamide Antibiotics) Allergy (Severe, Verified 07/07/23 16:27) Hives, swelling, difficulty breathing gemfibrozil Adverse Reaction (Intermediate, Verified 07/07/23 16:27) Nausea,myalgias Current Medications Generic Name Dose Route Start Last Admin Trade Name Freq PRN Reason Stop Dose Admin Acetaminophen 1,000 mg 07/17/23 12:39 Acetaminophen 500 Mg Tablet PO Q6H PRN PRN Pain Score 1-10 Hydrocodone Bitart/Acetaminophen 1 tablet 07/17/23 12:48 Hydrocodone Bitartrate/Apap 5/325 Tablet PO BID PRN Pain Score 6-10 or Pre PT/OT Allopurinol 100 mg 07/18/23 08:00 07/19/23 09:55 Allopurinol 100 Mg Tablet PO 100 mg DAILYCM PABLITO Administration Amlodipine Besylate 5 mg 07/18/23 10:00 07/19/23 09:55 Amlodipine 5 Mg Tablet PO 5 mg DAILY PABLITO Administration Protocol Ascorbic Acid 500 mg 07/17/23 17:00 07/19/23 09:55 Ascorbic Acid 500 Mg Tablet PO 500 mg BIDCM PABLITO Administration Atorvastatin Calcium 80 mg 07/17/23 22:00 07/18/23 20:58 Atorvastatin Calcium 80 Mg Tablet PO 80 mg QHS PABLITO Administration Bisacodyl 10 mg 07/17/23 12:39 07/19/23 10:02 Bisacodyl 5 Mg Tablet PO 10 mg DAILY PRN Administration Constipation Cholecalciferol 50 mcg 07/18/23 08:00 07/19/23 09:56 Cholecalciferol (Vit D3) 25 Mcg Tablet (1,000 Units) PO 50 mcg DAILYCM PABLITO Administration Duloxetine HCl 60 mg 07/18/23 10:00 07/19/23 09:57 Duloxetine Hcl 60 Mg Capsule PO 60 mg DAILY PABLITO Administration Flecainide Acetate 100 mg 07/17/23 22:00 07/19/23 09:57 Flecainide 100 Mg Tablet PO 100 mg BID PABLITO Administration Fluticasone Propionate 2 puff 07/18/23 22:00 07/19/23 09:58 Fluticasone Propionate 110 Mcg Aer.W.Adap INHALATION 2 puff BID PABLITO Administration Levetiracetam 1,000 mg 07/17/23 22:00 07/19/23 09:57 Levetiracetam 1,000 Mg Tablet PO 1,000 mg BID PABLITO Administration Levothyroxine Sodium 100 mcg 07/18/23 06:00 07/19/23 05:28 Levothyroxine 100 Mcg Tablet PO 100 mcg DAILY@0600 PABLITO Administration Memantine 10 mg 07/17/23 22:00 07/19/23 09:57 Memantine Hydrochloride 10 Mg Tablet PO 10 mg BID PABLITO Administration Metaxalone 400 mg 07/17/23 22:00 07/19/23 09:57 Metaxalone 800 Mg Tablet PO 400 mg BID PABLITO Administration Metoprolol Succinate 12.5 mg 07/18/23 10:00 07/19/23 09:55 Metoprolol(Xl)Succ 25 Mg Tablet PO 12.5 mg DAILY PABLITO Administration Protocol Mirtazapine 7.5 mg 07/17/23 14:00 Mirtazapine 15 Mg Tablet PO QHS PRN INSOMNIA Nortriptyline HCl 100 mg 07/17/23 20:00 07/18/23 21:01 Nortriptyline 25 Mg Capsule PO 100 mg 2000 PABLITO Administration Oxcarbazepine 150 mg 07/17/23 22:00 07/19/23 09:58 Oxcarbazepine 150 Mg Tablet PO 150 mg BID PABLITO Administration Pantoprazole Sodium 40 mg 07/18/23 10:00 07/19/23 09:54 Pantoprazole Sodium 40 Mg Tablet PO 40 mg DAILY PABLITO Administration Polysaccharide Iron Complex 150 mg 07/18/23 10:00 07/19/23 09:54 Iron Polysaccharide Complex 150 Mg Capsule PO 150 mg DAILY PABLITO Administration Senna/Docusate Sodium 1 tablet 07/17/23 22:00 07/19/23 09:57 Senna/Docusate Sodium 1 Tablet PO 1 tablet BID PABLITO Administration Tuberculin PPD 0.1 ml 05/12/24 10:00 Tuberculin,Purif.Prot.Deriv. 50 Tu/Ml Vial ID 07/25/23 10:01 X1 ONE Warfarin Sodium 3 mg 07/17/23 17:00 07/18/23 17:29 Warfarin 3 Mg Tablet PO 3 mg DINNER PABLITO Administration Problem List (Updated 07/17/23 @ 12:[address] Virgil Jimenez MD) Allergic rhinitis (Acute) Esophageal reflux (Acute) Depression (Acute) Overactive bladder (Acute) Vascular dementia (Acute) Atrial fibrillation (Acute) Hypertension (Chronic) Seizure disorder (Acute) Hypothyroidism (Acute) Gout (Acute) CVA (cerebral vascular accident) (Acute) History of aortic valve replacement (Acute) Iron deficiency anemia (Acute) GI bleed (Acute) Blood in stool (Acute) Urinary tract infection (Acute) Debility (Acute) Hyperlipidemia (Chronic) Vital Signs Temp Pulse Resp BP Pulse Ox O2 Del Method 97.8 F 62 20 H 131/60 H 94 Room Air 07/18/23 14:55 07/19/23 10:06 07/18/23 14:55 07/19/23 10:06 07/18/23 14:55 07/18/23 14:55 Oxygen Delivery Method Room Air Weight: 105.551 kg Body Mass Index (BMI) 39.9 Sodium 146 mmol/L (136-145) H 07/19/23 05:11 Potassium 4.1 mmol/L (3.5-5.1) 07/19/23 05:11 Chloride 114 mmol/L (98-107) H 07/19/23 05:11 Carbon Dioxide 26.0 mmol/L (21.0-32.0) 07/19/23 05:11 Anion Gap 6 (5-15) 07/19/23 05:11 BUN 35 mg/dL (7-18) H 07/19/23 05:11 Creatinine 1.49 mg/dL (0.55-1.02) H 07/19/23 05:11 Est GFR (MDRD) Af Amer 43 mL/min (>60) L 07/19/23 05:11 Est GFR (MDRD) Non-Af 36 mL/min (>60) L 07/19/23 05:11 BUN/Creatinine Ratio 23.5 RATIO (10-20) H 07/19/23 05:11 Glucose 98 mg/dL (74-106) 07/19/23 05:11 Assessment/Plan: 1. Pain: acetaminophen 1000mg PO Q6H PRN pain 1-5 and [place] 5/325mg 1T PO BID PRN pain 6-10. Resident has not had any PRN doses. Please continue to monitor for increased pain and PRN usage. 2. Bowel: senna/docusate 1T PO BID and bisacodyl 10mg PO daily PRN constipation. Resident has had 1 dose of bisacodyl (given this morning). Last documented bowel movement 07/07. Please continue to monitor for constipation and PRN usage. 3. Hypertension/atrial fibrillation/Hx AVR and stroke): metoprolol succinate 12.5mg PO daily, amlodipine 5mg PO daily, flecainide 100mg PO BID and warfarin 3mg PO dinner. Please continue to monitor BP (last 131/60), HR (last 62), S/S of bleeding, INR (last 2.8), hemoglobin (last 7.9g/dL), swelling, renal function, EKG (last QTc 468 msec 07/08/23). 4. Seizure disorder: levetiracetam 1000mg PO BID and oxcarbazepine 150mg PO BID. Please continue to monitor for S/S of seizures, confusion, fall/fractures (BEERs medication), aggression, renal function and sodium (last 146mmol/L). 5. Iron deficiency anemia: Ferrex 150mg PO daily and ascorbic acid 500mg PO BID. Please continue to monitor hemoglobin (last 7.9g/dL), constipation, dark stools and iron studies (last 07/10/23). 6. Gout: allopurinol 100mg PO daily. Please continue to monitor renal function and S/S of gout. 7. Hypothyroidism: levothyroxine 100mcg PO daily. Please continue to monitor for S/S of hypothyroidism, TSH (last 06/21/23) and free T4 (last 06/21/23). 8. GERD: pantoprazole 40mg PO daily. Please continue to monitor for S/S of GERD and diarrhea (BEERs medication). 9. Hyperlipidemia: atorvastatin 80mg PO QHS. Please continue to monitor lipid panel (last 06/21/23), LFTs (last 07/07/23) and muscle pain 10. Overactive bladder: vibegron 75mg PO daily. Please continue to monitor for S/S of overactive bladder, headache and diarrhea. 11. Vascular dementia: memantine 10mg PO BID. Please continue to monitor for rash, dizziness and headache. 12. Muscle spasm: metaxalone 400mg PO BID. Please continue to monitor for anticholinergic side effects (highly anticholinergic, BEERs medication), dizziness and confusion. 13. Allergic rhinitis: fluticasone 110mcg nasal spray 2 sprays nasal BID. Please continue to monitor for S/S of allergies, thrush, and nosebleed. 14. Vitamin D deficiency: cholecalciferol 2000units PO daily. Please consider ordering a vitamin D level if clinically appropriate. Last level from 05/08/22. Thanks. Assessment/Plan for indications treated with psychotropic medications: 1. Insomnia: nortriptyline 100mg PO QHS and mirtazapine 7.5mg PO QHS PRN insomnia.Please see physician note regarding GDR. No PRN doses have been given. Please continue to monitor for dementia/delirium (BEERs medication), falls/fractures (BEERs medication), suicidal ideation (black box warning), anticholinergic side effects (BEERs medication), and sodium (last 146mmol/L). 2. Depression: duloxetine 60mg PO daily. Please see physician note regarding GDR. Please continue to monitor falls/fractures (BEERs medication), suicidal ideation (black box warning), sodium, and renal function. Medical chart and medication regimen reviewed. The following medication irregularities or issues were identified: 1. Cholecalciferol 2000units PO daily. Please consider ordering a vitamin D level if clinically appropriate. Last level from 05/08/22. Thanks. Date Date of Note:: 07/19/23 Documented by User: Dr. Virgil Jimenez MD 07/19/23 12:18 TCU RX Drug Regimen Review Provider Comments Provider responsibility Provider Comments to Recommendations by Pharmacy: Agree
--- NOTE | 2023-07-19 12:16 | NURSING ---
Coal Dumping Equipment Operator Note; Activity Asset: Ronnell Osullivan is independent in her choice of daily activities. She will go by [employer] has a tablet and smartphone she uses and was given word search and cross word puzzles. Her family will visit with her and she welcomes visits with the care services manager and therapy dog when available. Staff will remind her of weekly activities and respect her right to say no.
--- NOTE | 2023-07-19 14:29 | NURSING ---
OFFICE CALLED AND STATED THEY PLAN ON DOING THE CYSTOSCOPY ON Wednesday07/22/23 AROUND 1400,BUT WILL CALL BACK ON 07/21/23 TO CONFIRM TIME. FAMILY AND PT UP DATED.
[2023-07-19 14:50] VITALS: PULSE 67; RESP 18; O2SAT 97
--- NOTE | 2023-07-19 15:02 | NURSING ---
Addendum entered by Simone Green 07/19/23 18:44: POSITIVE RESULTS WITH A LARGE FORMED. Original Note: PT HAS NOT HAD A BM IN 3 DAYS. PRN DULCOLAX AND PRUNE JUICE WITH BUTTER GIVEN.
[2023-07-19 16:00] VITALS: BP 150/55; PULSE 75; RESP 18; TEMP 36.3; O2SAT 92
[2023-07-19] MEDS: Atorvastatin Calcium 80 MG Tablet PO (20:45)
[2023-07-19] MEDS: Nortriptyline 25 MG Capsule 100 MG PO (20:46)
[2023-07-19 20:54] VITALS: BP 123/48; PULSE 67
--- NOTE | 2023-07-20 04:32 | NURSING ---
Resident sitting at the foot of the bed and attempting to self-transfer. Incontinent of urine. Linens changed. Assisted to bathroom x1 using wheeled walker. Resident becoming irritable regarding incontinence noting she has been incontinent since having a stroke. Continent of bladder- refer to intake. Room camera activated. Alarms applied to bed and chair. Also verbalizes she has not been able to sleep since padding applied to b/l rails. Last seizure was approximately one year ago. This nurse informed resident last hs that padding would be applied to rails and resident did not decline intervention at that time. This nurse removed padding to rt rail but resident verbalized padding to lt rail could remain in place. Pullup changed while in bathroom. Emotional support and active listening provided. Will continue to monitor.
--- NOTE | 2023-07-20 06:02 | NURSING ---
Order placed last hs per Dr. Espinoza for resident to be NPO after midnight. Will hold Levothyroxine at this time and report to oncoming nurse.
[2023-07-20 07:49] LABS: Vitamin D,25 Hydroxy 41.4 ng/mL
--- NOTE | 2023-07-20 07:54 | NURSING ---
NURSE CALLED UNIT FROM DR. WYATT. Tierra' TO HAVE EGD AT 1415 TODAY. REMAINS NPO.
[2023-07-20 09:56] VITALS: BMI 40.6
--- NOTE | 2023-07-20 10:10 | NURSING ---
NOTIFIED R' DAUGHTER, ROMA OF SCOPE TODAY. SHE STATES SHE WILL ARRIVE AROUND 1315.
[2023-07-20 12:17] VITALS: BP 149/62; PULSE 61; RESP 18; TEMP 36.2; O2SAT 97
--- NOTE | 2023-07-20 14:15 | NURSING ---
Addendum entered by Va Puente 07/20/23 17:06: Patient returned to unit at this time. Original Note: Patient exiting unit at this time for EGD.
--- NOTE | 2023-07-20 16:19 | HP.PCM_ITS ---
HPI - General General Date of Admission: 07/17/23 Date of Service: 07/20/23 Chief Complaint: Anemia HPI Narrative CHANNING CANCHOLA, is a 78 F who presented to [facility] ED on 07/07/2023 with persistent hematuria. Patient seen at bedside in the ED, 2 other family members present. Patient was laying back comfortably in bed and in no acute distress. She was making appropriate eye contact and answering questions appropriately for me. Patient began having hematuria about 1.5 to 2 weeks ago. She was hospitalized at [facility] from 06/19 to 06/22/2023 for an acute CVA. Has a history of mechanical aortic valve replacement in 2001, has been on warfarin since then with goal INR 2.5-3.5. Her INR was subtherapeutic at 1.1 on admissio n on 06/19. She was on Lovenox shots with an increased dose of warfarin to bridge back to therapeutic INR. She began having hematuria around 06/27 and INR that day was 5.8. She held a few doses and repeat was 3.5 on 06/29. She was evaluated in our ED on 06/[address] abdomen pelvis was fairly benign. Patient was discharged and saw Dr. Cordoba in the office yesterday 07/05. Had labs, UA and urine culture drawn at that time. Plan was for possible cystoscopy in the near future if needed. She was found to have an INR of 6.1 as well as a possible UTI. She continued to have hematuria and came to the ED today for further evaluation. Repeat INR was 4.0 today. Follows with [facility] and states they have been managing her INR checks and warfarin dosing for years. Hemoglobin today was 9.1, stable from 9.1 on 07/05 but down from the 10-11 range from a few weeks ago. ED physician spoke with Dr. Cordoba who was fine with admitting the patient with plan for cystoscopy likely tomorrow. Patient otherwise denies any recent dark or bloody bowel movements. She does have a fairly recent history of GI bleed with acute ischemic colitis and grade B esophagitis w/ non-bleeding duod enal ulcers seen on colonoscopy and EGD within February 2023. I saw her in the office on 06/09, was noted to be doing well, PPI was continued and no other changes were made at that time. Patient denies any recent fevers or chills. Denies any chest pain, shortness of breath, abdominal pain. No other acute concerns. Since being in the hospital her hemoglobin has been decreasing I was consulted f or evaluation of her worsening anemia. 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 current use of 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 Migraines Migraines Myocardial infarct Near syncope Paroxysmal atrial fibrillation Physical debility Seizure disorder Seizures Sleep apnea Spinal stenosis Stage 4 chronic kidney disease Stroke/cerebrovascular accident Thoracic aortic aneurysm (TAA) Urine retention Home Medications allopurinol 100 mg tablet 100 mg PO DAILY GOUT #90 tabs 02/22/19 [History Last Taken 07/07/23] levothyroxine 100 mcg tablet 100 mcg PO DAILY THYROID #90 tabs 02/22/19 [History Last Taken 07/07/23] levetiracetam 1,000 mg tablet (Keppra) 1,000 mg PO BID EPILEPSY 06/06/21 [History Last Taken 07/07/23] oxcarbazepine 150 mg tablet 150 mg PO BID EPILESPSY 09/12/21 [History Last Taken 07/07/23] metoprolol succinate 25 mg tablet,extended release 24 hr 12.5 mg PO DAILY HEART #90 tabs 11/25/21 [History Last Taken 07/07/23] flecainide 100 mg tablet 100 mg PO BID HEART 12/09/21 [History Last Taken ] memantine 10 mg tablet 10 mg PO BID MEMORY 02/22/23 [History Last Taken 07/07/23] vibegron 75 mg tablet (Gemtesa) 75 mg PO DAILY OVERACTIVE BLADDER 02/22/23 [History Last Taken 07/07/23] duloxetine 60 mg capsule,delayed release 60 mg PO DAILY DEPRESSION 03/17/23 [History Last Taken 07/07/23] metaxalone 400 mg tablet 400 mg PO BID MUSCLE SPASMS/PAIN 03/17/23 [History Last Taken 07/07/23] nitroglycerin 0.4 mg sublingual tablet (Nitrostat) 0.4 mg sublingual Q5M PRN CHEST PAIN 03/17/23 [History Last Taken Unknown] nortriptyline 50 mg capsule 100 mg PO 1999 DEPRESSION 03/17/23 [History Last Taken 07/07/23] hydrocodone-acetaminophen 5-325mg 5mg-325mg 1 tab PO BID PRN PAIN 03/26/23 [History Last Taken 07/07/23] Lactobacillus acidophilus 250 million cell capsule (Probiotic Acidophilus) 1,000 mmu cells PO DAILY asthma 04/14/23 [History Last Taken 07/07/23] cholecalciferol (vitamin D3) 50 mcg (2,000 unit) capsule (D3-2000) 2,000 unit PO DAILY vitamin 06/20/23 [History Last Taken 07/07/23] omeprazole 40 mg capsule,delayed release 40 mg PO DAILY reflux 06/20/23 [History Last Taken 07/07/23] fluticasone propionate 220 mcg/actuation HFA aerosol inhaler 2 inh inhalation BID asthma 06/21/23 [History Last Taken 07/07/23] rosuvastatin 40 mg tablet 40 mg PO QHS cholesterol 1 month #30 tabs 06/22/23 [Rx Last Taken 07/06/23] warfarin 6 mg tablet (Jantoven) 6 mg PO DAILY@1700 30 days #30 tabs 06/22/23 [Rx Last Taken Unknown] mirtazapine 7.5 mg tablet 3.75 - 7.5 mg PO QHS PRN antidepressant 07/07/23 [History Last Taken 07/06/23] ascorbic acid (vitamin C) 500 mg tablet 500 mg PO BID vitamin C #60 tabs 07/11/23 [Rx Last Taken Unknown] ferrous fumarate 324 mg (106 mg iron) tablet 324 mg PO DAILY iron 1 month #30 tabs 07/11/23 [Rx Last Taken Unknown] warfarin 4 mg tablet 4 mg PO DAILY BLOOD THINNER #7 tabs 07/11/23 [Rx Last Taken 03/17/23] amlodipine 10 mg tablet 5 mg PO DAILY BLOOD PRESSURE 07/13/23 [History Last Taken Unknown] furosemide 40 mg tablet (Lasix) 40 mg PO DAILY #30 tabs 07/13/23 [Rx Last Taken Unknown] ondansetron HCl 4 mg tablet 4 mg PO TID PRN nausea and vomiting 05/04/24 [History Last Taken Unknown] rimegepant 75 mg disintegrating tablet (Nurtec ODT) 75 mg PO QODAY migraines 07/17/23 [History Last Taken Unknown] Allergy/AdvReac Type Severity Reaction Status Date / Time celecoxib [From Celebrex] Allergy Severe Hives, Verified 07/20/23 14:29 swelling, difficulty breathing Sulfa (Sulfonamide Allergy Severe Hives, Verified 07/20/23 14:29 Antibiotics) swelling, difficulty breathing gemfibrozil AdvReac Intermediate Nausea,myal Verified 07/20/23 14:29 gias Family History Mother CVA (cerebral vascular accident) Breast cancer Hypertension CAD (coronary artery disease) Father Hypertension CAD (coronary artery disease) Surgical History (Updated 07/17/23 @ 12:[address] Virgil Jimenez MD) Fracture of ankle, bimalleolar, left, closed H/O chest tube placement (05/07/01) History of appendectomy History of bilateral breast reduction surgery (2008) History of left heart catheterization (12/07/15) History of loop recorder History of lumpectomy (2009) History of open reduction and internal fixation (ORIF) procedure (11/30/19) History of thumb surgery (2004) History of tilt table evaluation (05/21/16) History of total abdominal hysterectomy (1974) Hx of aortic valve replacement, mechanical (04/05/01) Hx of ascending aorta replacement (04/05/01) Social History household members: none housing: condominium Smoking Status: Never smoker alcohol intake: never substance use type: does not use ROS Constitutional Constitutional: Reports weakness; Denies chills, fever(s) or weight gain ENT HEENT: Denies headache(s), nasal congestion or nasal discharge Cardiovascular Cardiovascular: Denies chest pain or palpitations Respiratory/Chest Respiratory/Chest: Denies cough, excessive phlegm production or shortness of breath with exertion Gastrointestinal Gastrointestinal: Denies abdominal pain, nausea or vomiting Genitourinary Genitourinary: Denies dysuria Musculoskeletal Musculoskeletal: Denies joint pain or joint swelling Integumentary Integumentary: Denies rash or wounds Neurologic Neurologic: Denies focal weakness, numbness or tingling Psychiatric Psychiatric: Denies anxiety, auditory hallucinations, depression, homicidal ideation or suicidal ideation Vital Signs Vital Signs Vital Signs: 07/19/23 20:54 07/19/23 22:00 07/20/23 12:17 Temperature 97.2 F L Temperature Source Temporal Pulse Rate 67 61 Pulse Strength Normal (2+) Respiratory Rate 18 Blood Pressure 123/48 H 149/62 H Blood Pressure Mean 73 91 Blood Pressure Source Monitor Monitor Blood Pressure Position Semi-Fowlers Semi-Fowlers Blood Pressure Location Right Arm Right Arm Pulse Ox 97 Oxygen Delivery Method Room Air Weight Weight: 237 lb 1.6 oz Body Mass Index (BMI) 40.6 Physical Exam Const alert General Appearance: cooperative HEENT normocephalic Eyes PERRL and EOMs intact bilaterally Neck supple, no JVD and no carotid bruits Resp normal respiratory effort, normal air movement and clear to auscultation bilaterally Cardio regular rate and regular rhythm Cardio Narrative: Click. GI normal to inspection, nondistended, normoactive bowel sounds, non-tender and non-distended Extremity normal capillary refill General Extremity: Negative for edema Skin no rashes or lesions noted General Skin Exam: no breakdown Neuro moves all extremities Psych affect normal Appearance: appropriate Results Lab / Micro Data 07/19/23 05:11 07/19/23 05:11 Labs: Laboratory Results - last 24 hr 07/17/23 13:35: Vitamin D 25-Hydroxy 41.4 Assessment & Plan Assessment/Plan (1) Acute lower GI bleeding: PLAN: Plan Acute on chronic GI bleed ? hemoglobin is 7.. She had angiodysplastic lesions previously. I suspect that she had some mild bleeding secondary to ischemia in the upper GI tract versus ulcerative disease from anticoagulation. She will undergo an upper endoscopy to evaluate upper GI tract. She was explained alternatives, risk, benefits include not withstanding bleeding, infection, sepsis, perforation, need for emergent urgent . Have an ASA of 3. ? Her care is complicated by the need for anticoagulation secondary to her mechanical aortic valve, will not actively reverse her INR but will also hold her Coumadin
--- NOTE | 2023-07-20 16:33 | CHAPLAIN ---
Type of Pastoral Visit ___ Initial Visit ___ Follow-up Visit ___ On-call Visit ___ General Patient Visit ___ Spiritual Assessment ___ Family Conference ___ Bereavement ___ Rapid Response ___ Code Blue ___ Other (describe below) Pastoral Care Referral From ___ Patient ___ Family ___ Nurse ___ Physician ___ Electric Meter Reader ___ Assembly Riveter ___ Other (describe below) Sacrament/Intervention ___ Active listening ___ Anointing ___ Buddhism ___ Bereavement ___ Communion ___ Oralia exploration ___ ___ Life review ___ Prayer ___ Reconciliation ___ Sacrament of Sick ___ Supportive presence ___ Wedding ___ Other (describe below) Pastoral Comments patient was not in her room; calling card left
[2023-07-20] MEDS: Cholecalciferol (VIT D3) 25 MCG TABLET (1,000 UNITS) 50 MCG PO (17:27)
[2023-07-20] MEDS: Levothyroxine 100 MCG Tablet PO (17:27)
[2023-07-20] MEDS: Allopurinol 100 MG Tablet PO (17:27)
[2023-07-20] MEDS: amLODIPine 5 MG Tablet PO (17:28)
[2023-07-20] MEDS: DULoxetine Hcl 60 MG Capsule PO (17:28)
[2023-07-20] MEDS: Pantoprazole Sodium 40 MG Tablet PO (17:28)
[2023-07-20] MEDS: Iron Polysaccharide Complex 150 MG CAPSULE PO (17:28)
[2023-07-20] MEDS: Vibegron 75 MG TABLET PO (17:28)
[2023-07-20 17:29] VITALS: BP 116/98; PULSE 66
[2023-07-20] MEDS: Metoprolol(XL)Succ 25 MG Tablet 12.5 MG PO (17:29)
[2023-07-20] MEDS: Ascorbic Acid 500 MG Tablet PO (17:30)
--- NOTE | 2023-07-20 18:00 | NURSING ---
Updated patient's daughter Fátima post procedure as requested. No questions/concerns.
[2023-07-20 20:15] VITALS: PULSE 68; O2SAT 91
[2023-07-20] MEDS: Nortriptyline 25 MG Capsule 100 MG PO (20:17)
[2023-07-20] MEDS: Sucralfate 1 GM Tablet PO (20:20)
[2023-07-20] MEDS: Fluticasone Propionate 110 MCG AER.W.ADAP 2 PUFF INHALATION (20:20)
[2023-07-20] MEDS: Atorvastatin Calcium 80 MG Tablet PO (20:22)
[2023-07-20] MEDS: levETIRAcetam 1,000 MG Tablet 1000 MG PO (20:22)
[2023-07-20] MEDS: Memantine Hydrochloride 10 MG Tablet PO (20:22)
[2023-07-20] MEDS: Senna/Docusate Sodium 1 Tablet PO (20:23)
[2023-07-20] MEDS: OXcarbazepine 150 MG Tablet PO (20:23)
[2023-07-20] MEDS: Flecainide 100 MG Tablet PO (20:24)
[2023-07-20] MEDS: Metaxalone 800 MG Tablet 400 MG PO (20:26)
[2023-07-21] VITALS (7 sets, daily range): BP systolic 92–140; BP diastolic 42–65; PULSE 58–64; RESP 16–18; TEMP 36.2; O2SAT 94
[2023-07-21] MEDS: Sucralfate 1 GM Tablet PO ×2 (06:22→21:41)
[2023-07-21] MEDS: Levothyroxine 100 MCG Tablet PO (06:22)
[2023-07-21] MEDS: Ascorbic Acid 500 MG Tablet PO ×2 (08:52→17:40)
[2023-07-21] MEDS: Flecainide 100 MG Tablet PO ×2 (08:53→21:46)
[2023-07-21] MEDS: DULoxetine Hcl 60 MG Capsule PO (08:53)
[2023-07-21] MEDS: levETIRAcetam 1,000 MG Tablet 1000 MG PO ×2 (08:53→21:44)
[2023-07-21] MEDS: Metaxalone 800 MG Tablet 400 MG PO ×2 (08:53→21:45)
[2023-07-21] MEDS: Vibegron 75 MG TABLET PO (08:53)
[2023-07-21] MEDS: Allopurinol 100 MG Tablet PO (08:53)
[2023-07-21] MEDS: Senna/Docusate Sodium 1 Tablet PO ×2 (08:53→21:45)
[2023-07-21] MEDS: Memantine Hydrochloride 10 MG Tablet PO ×2 (08:54→21:44)
[2023-07-21] MEDS: Cholecalciferol (VIT D3) 25 MCG TABLET (1,000 UNITS) 50 MCG PO (08:54)
[2023-07-21] MEDS: Metoprolol(XL)Succ 25 MG Tablet 12.5 MG PO (08:54)
[2023-07-21] MEDS: Pantoprazole Sodium 40 MG Tablet PO (08:55)
[2023-07-21] MEDS: OXcarbazepine 150 MG Tablet PO ×2 (08:55→21:46)
[2023-07-21] MEDS: Iron Polysaccharide Complex 150 MG CAPSULE PO (08:55)
[2023-07-21] MEDS: Fluticasone Propionate 110 MCG AER.W.ADAP 2 PUFF INHALATION ×2 (08:56→21:41)
[2023-07-21] MEDS: amLODIPine 5 MG Tablet PO (11:15)
--- NOTE | 2023-07-21 12:10 | NURSING ---
Offered covid vaccine, VIS provided. Patient refuses at this time.
--- NOTE | 2023-07-21 13:58 | CASEMGMT ---
Social Work IDT met with patient, daughters, Fátima and Cady Lazar at bedside to complete care plans. Discussed patient progress with therapy (PT/OT/ST), dietary, activities, and nursing. Patient continues to progress with therapy and speech. Patient requires continued assistance for activities for cognition and short term memory. Denture Waxer will assist with providing patient with activities to assist with brain games. Educated patient and daughters of [facility] insurance coverage and NRD:07/19 pending review. SW to follow up with family once review date is provided. SW provided patient with stroke support group informational. SW inquired about home health care. Patient previously had [facility]. Patient's daughter inquired about showering assistance. SW discussed home health aid services. Speech inquired about medical alert devices. Patient's daughter confirmed that the patient had medical alert device in the past, but refused to wear them. Patient has Ke[employer] in the home for patient to utilize, but family was provided additional resources for alternative medical alert device. Patient goal is to return home with additional support. SW will continue to follow to provide support for discharge planning. PAULINE Bowden
--- NOTE | 2023-07-21 15:41 | NURSING ---
Addendum entered by Berkley King 07/21/23 17:43: NS bolus complete. bp-140/65, p-64. Pt currently sitting up in bed eating supper, no complaints at this time. Denies malaise. Original Note: Therapy called this nurse to room d/t pt needed to be lowered to wheelchair. Per pt she got dizzy. BP 95/[address] Jimenez updated N.O. received for CBC BMP and 1L of NS bolus. Recheck BP once bolus is complete. Orders read back.
[2023-07-21 16:06] LABS: Absolute Lymphocyte Count 0.67 X10^3/uL (0.83-4.51); Absolute Neutrophil Count 6.9 X10^3/uL (2.0-7.7); Basophil# 0.04 X10^3/uL; Basophil% 0.5 % (0-1); Eosinophil# 0.26 X10^3/uL; Eosinophils% 3.1 % (0-5); Hematocrit 29.3 % (37-47); Hemoglobin 8.9 g/dL (12.0-15.0); Lymphocyte # 0.67 X10^3/ul (0.83-4.51); Lymphocyte % 7.9 % (19-41); Mean Corp Hgb Conc 30.4 g/dL (32-36); Mean Corpuscular Hgb 29.5 pg (27.0-32.0); Mean Platelet Vol. 9.2 fl (6.2-12.0); Monocyte% 7.1 % (0-10); NRBC Flagged by Analyzer 0 % (0-5); Neutrophil # 6.88 X10^3/uL (2.7-7.7); Neutrophil % 80.9 % (47-70); Platelet Count 270 K/mm3 (150-450); RBC Distribution Width CV 14.4 % (11.6-14.6); Red Blood Count 3.02 M/mm3 (4.2-5.4); White Blood Count 8.5 K/mm3 (4.4-11.0)
[2023-07-21 16:20] LABS: Anion Gap 5 (5-15); BUN 32 mg/dL (7-18); BUN/Creat Ratio 15.7 RATIO (10-20); Calcium,Total 9.4 mg/dL (8.5-10.1); Chloride 110 mmol/L (98-107); Creatinine, Serum 2.04 mg/dL (0.55-1.02); EST Glomerular Filtration Rate 25 mL/min (>60); Est Glom Filt Rate - Afr Amer 30 mL/min (>60); Estimated Creatinine Clearance 26.33 ml/min; Glucose 123 mg/dL (74-106); Potassium 4.9 mmol/L (3.5-5.1); Sodium Level 143 mmol/L (136-145)
[2023-07-21] MEDS: 0.9% Normal Saline (1000mL) 1,000 ML 999 ML IV (16:22)
--- NOTE | 2023-07-21 16:22 | NURSING ---
Received call from Dr. Cordoba's office, received instruction that cystoscopy is scheduled for 0645 tomorrow. Okay to administer pt's levothyroxine tomorrow before procedure, and hold Coumadin dose tonight.
[2023-07-21] MEDS: Nortriptyline 25 MG Capsule 100 MG PO (21:41)
[2023-07-21] MEDS: Atorvastatin Calcium 80 MG Tablet PO (21:44)
[2023-07-21] MEDS: 0.9% Saline Lock 10 ML Syringe IV (21:51)
[2023-07-22] MEDS: Levothyroxine 100 MCG Tablet PO (05:11)
[2023-07-22 05:14] VITALS: BP 110/77; PULSE 54
[2023-07-22 06:18] LABS: International Normalized Ratio 2.3
--- NOTE | 2023-07-22 06:46 | NURSING ---
Addendum entered by Harshal Maloney 07/22/23 07:03: PT left floor at 0645. Original Note: PT left floor via bed and x2 staff for PACU for cystoscopy by Dr. Cordoba.
--- NOTE | 2023-07-22 09:31 | NURSING ---
PT RETURNED TO FLOOR AT 0900 FROM A CYSTOSCOPY WITH . NNO.
[2023-07-22] MEDS: Ascorbic Acid 500 MG Tablet PO ×2 (10:29→17:15)
[2023-07-22] MEDS: Cholecalciferol (VIT D3) 25 MCG TABLET (1,000 UNITS) 50 MCG PO (10:29)
[2023-07-22] MEDS: Vibegron 75 MG TABLET PO (10:30)
[2023-07-22] MEDS: levETIRAcetam 1,000 MG Tablet 1000 MG PO ×2 (10:30→20:57)
[2023-07-22] MEDS: Fluticasone Propionate 110 MCG AER.W.ADAP 2 PUFF INHALATION ×2 (10:30→20:59)
[2023-07-22] MEDS: DULoxetine Hcl 60 MG Capsule PO (10:31)
[2023-07-22] MEDS: Memantine Hydrochloride 10 MG Tablet PO ×2 (10:31→20:59)
[2023-07-22] MEDS: Senna/Docusate Sodium 1 Tablet PO ×2 (10:31→20:58)
[2023-07-22] MEDS: Metaxalone 800 MG Tablet 400 MG PO ×2 (10:31→20:58)
[2023-07-22] MEDS: Pantoprazole Sodium 40 MG Tablet PO (10:31)
[2023-07-22] MEDS: Iron Polysaccharide Complex 150 MG CAPSULE PO (10:31)
[2023-07-22] MEDS: Allopurinol 100 MG Tablet PO (10:31)
[2023-07-22 10:32] VITALS: BP 106/51; PULSE 61
[2023-07-22] MEDS: Metoprolol(XL)Succ 25 MG Tablet 12.5 MG PO (10:32)
[2023-07-22] MEDS: Flecainide 100 MG Tablet PO ×2 (10:32→20:58)
[2023-07-22] MEDS: OXcarbazepine 150 MG Tablet PO ×2 (10:33→20:58)
[2023-07-22 10:38] VITALS: BP 106/51; PULSE 61
[2023-07-22] MEDS: 0.9% Saline Lock 10 ML Syringe IV (10:45)
[2023-07-22] MEDS: 0.9% Normal Saline (1000mL) 1,000 ML 75 ML IV (10:47)
--- NOTE | 2023-07-22 11:16 | NURSING ---
FAMILY AND PT UPDATED AFTER CYSTOSCOPY TODAY.
--- NOTE | 2023-07-22 14:05 | MDS.RN ---
Pain interview for mds completed.
[2023-07-22 15:12] VITALS: BP 109/67; PULSE 58; RESP 18; TEMP 36.2; O2SAT 95
[2023-07-22] MEDS: Nortriptyline 25 MG Capsule 100 MG PO (20:57)
[2023-07-22] MEDS: Sucralfate 1 GM Tablet PO (20:58)
[2023-07-22] MEDS: Atorvastatin Calcium 80 MG Tablet PO (20:59)
[2023-07-22 22:00] VITALS: PULSE 66; RESP 16; O2SAT 96
[2023-07-23] MEDS: 0.9% Normal Saline (1000mL) 1,000 ML 75 ML IV (00:43)
[2023-07-23] MEDS: Levothyroxine 100 MCG Tablet PO (05:56)
[2023-07-23] MEDS: Sucralfate 1 GM Tablet PO ×2 (05:57→22:33)
[2023-07-23 06:05] VITALS: PULSE 60; RESP 18; O2SAT 97
[2023-07-23 06:42] LABS: Anion Gap 4 (5-15); BUN 34 mg/dL (7-18); BUN/Creat Ratio 23.3 RATIO (10-20); Chloride 112 mmol/L (98-107); Creatinine, Serum 1.46 mg/dL (0.55-1.02); EST Glomerular Filtration Rate 37 mL/min (>60); Est Glom Filt Rate - Afr Amer 44 mL/min (>60); Estimated Creatinine Clearance 36.79 ml/min; Glucose 97 mg/dL (74-106); Potassium 4.2 mmol/L (3.5-5.1); Sodium Level 141 mmol/L (136-145)
[2023-07-23 08:30] VITALS: BP 103/66; PULSE 64; RESP 18; TEMP 36.3; O2SAT 97
[2023-07-23] MEDS: Ascorbic Acid 500 MG Tablet PO ×2 (08:33→17:19)
[2023-07-23] MEDS: Allopurinol 100 MG Tablet PO (08:33)
[2023-07-23] MEDS: Cholecalciferol (VIT D3) 25 MCG TABLET (1,000 UNITS) 50 MCG PO (08:33)
[2023-07-23] MEDS: Memantine Hydrochloride 10 MG Tablet PO ×2 (08:34→22:33)
[2023-07-23] MEDS: Vibegron 75 MG TABLET PO (08:34)
[2023-07-23] MEDS: Senna/Docusate Sodium 1 Tablet PO ×2 (08:34→22:30)
[2023-07-23] MEDS: DULoxetine Hcl 60 MG Capsule PO (08:34)
[2023-07-23] MEDS: Pantoprazole Sodium 40 MG Tablet PO (08:34)
[2023-07-23] MEDS: Fluticasone Propionate 110 MCG AER.W.ADAP 2 PUFF INHALATION ×2 (08:34→22:34)
[2023-07-23] MEDS: levETIRAcetam 1,000 MG Tablet 1000 MG PO ×2 (08:34→22:32)
[2023-07-23] MEDS: Iron Polysaccharide Complex 150 MG CAPSULE PO (08:34)
[2023-07-23 08:35] VITALS: PULSE 64
[2023-07-23] MEDS: OXcarbazepine 150 MG Tablet PO ×2 (08:35→22:30)
[2023-07-23] MEDS: Metoprolol(XL)Succ 25 MG Tablet 12.5 MG PO (08:35)
[2023-07-23] MEDS: Flecainide 100 MG Tablet PO ×2 (08:35→22:31)
[2023-07-23] MEDS: Metaxalone 800 MG Tablet 400 MG PO ×2 (08:35→22:31)
--- NOTE | 2023-07-23 08:50 | CASEMGMT ---
Social Work Assessment - TCU Chart reviewed. Met with patient in evening of 07.22.2023 to complete social work admission assessment. Called daughter/POKAMERON Khan on 07.23.2023 to provide collaborative information for assessment. During conversation with patient on 07.22.2023, at approximately 1830, patient cooperative, answered questions but did at times lose words/difficulty expressing words. Overall recall of past events appearing intact, as patient was able to talk about past events in detail, and how past events have impacted patient (specifically patient's 's in 2009). Patient appearing to have some difficulty with shorter term recall such as BIMS questions (Score 13/15), and how much help has been needing at home recently. Emotional support, and supportive listening provided to patient throughout assessment. Code status verified at [facility] no intubation. Spoke with daughter Fátima via phone on 07.23.2023 and verified assessment questions, in particular to ADL and prior assistance needed. Daughter presents as supportive of patient, as evidenced by help has been providing to patient at home. Spoke with both patient and daughter that length of stay at [facility] TCU dependent on insurance authorization; no guarantee for length of service. Goal: Return home with [facility] (who was seeing patient prior to TCU admission). Plan: Social work to follow and assist for support and discharge planning as indicated. May need referral for Medical alert information if goes home. -DARIAN Londono
--- NOTE | 2023-07-23 13:33 | CASEMGMT ---
Social Work BIMS (11/27) and PHQ9 (0) interviews completed on this date for MDS assessment. AUDRA Kumar
--- NOTE | 2023-07-23 16:24 | CHAPLAIN ---
Type of Pastoral Visit _x__ Initial Visit ___ Follow-up Visit ___ On-call Visit ___ General Patient Visit ___ Spiritual Assessment ___ Family Conference ___ Bereavement ___ Rapid Response ___ Code Blue ___ Other (describe below) Pastoral Care Referral From _x__ Patient ___ Family ___ Nurse ___ Physician ___ Bank Credit Card Collection Clerk ___ Park Keeper ___ Other (describe below) Sacrament/Intervention _x__ Active listening ___ Anointing ___ Shinto ___ Bereavement ___ Communion ___ Oralia exploration ___ ___ Life review _x__ Prayer ___ Reconciliation ___ Sacrament of Sick _x__ Supportive presence ___ Wedding ___ Other (describe below) Pastoral Comments patient has been seen recently and previously; pt reports on her progress and therapies; pt speaks of good family support and desire to continue the process; pt welcomes the time to talk and visit; prayer requested and given
[2023-07-23] MEDS: Nortriptyline 25 MG Capsule 100 MG PO (22:28)
[2023-07-23] MEDS: Atorvastatin Calcium 80 MG Tablet PO (22:32)
[2023-07-23 23:03] VITALS: BP 127/47; PULSE 57
[2023-07-24] MEDS: Sucralfate 1 GM Tablet PO ×2 (05:30→22:10)
[2023-07-24] MEDS: Levothyroxine 100 MCG Tablet PO (05:30)
[2023-07-24] MEDS: Pantoprazole Sodium 40 MG Tablet PO (08:54)
[2023-07-24] MEDS: Ascorbic Acid 500 MG Tablet PO ×2 (08:54→17:39)
[2023-07-24] MEDS: Metaxalone 800 MG Tablet 400 MG PO ×2 (08:54→22:08)
[2023-07-24 08:55] VITALS: BP 134/53; PULSE 63
[2023-07-24] MEDS: DULoxetine Hcl 60 MG Capsule PO (08:55)
[2023-07-24] MEDS: Cholecalciferol (VIT D3) 25 MCG TABLET (1,000 UNITS) 50 MCG PO (08:55)
[2023-07-24] MEDS: levETIRAcetam 1,000 MG Tablet 1000 MG PO ×2 (08:55→22:10)
[2023-07-24] MEDS: Memantine Hydrochloride 10 MG Tablet PO ×2 (08:55→22:07)
[2023-07-24] MEDS: Iron Polysaccharide Complex 150 MG CAPSULE PO (08:55)
[2023-07-24] MEDS: Senna/Docusate Sodium 1 Tablet PO ×2 (08:55→22:07)
[2023-07-24] MEDS: Allopurinol 100 MG Tablet PO (08:55)
[2023-07-24] MEDS: Vibegron 75 MG TABLET PO (08:55)
[2023-07-24] MEDS: Metoprolol(XL)Succ 25 MG Tablet 12.5 MG PO (08:55)
[2023-07-24] MEDS: Flecainide 100 MG Tablet PO ×2 (08:56→22:08)
[2023-07-24] MEDS: Fluticasone Propionate 110 MCG AER.W.ADAP 2 PUFF INHALATION ×2 (08:56→22:11)
[2023-07-24] MEDS: OXcarbazepine 150 MG Tablet PO ×2 (08:56→22:10)
[2023-07-24] MEDS: Acetaminophen 500 MG Tablet 1000 MG PO (12:41)
[2023-07-24 14:12] VITALS: BP 113/52; PULSE 61; RESP 16; TEMP 36.4; O2SAT 95
[2023-07-24] MEDS: Bisacodyl 5 MG Tablet 10 MG PO (14:43)
--- NOTE | 2023-07-24 16:21 | NURSING ---
Dr. Jimenez notified of pt's INR 2.3. N.O. received to increase Warfarin to 3.5mg daily. INR to be rechecked Wednesday. Order read back.
[2023-07-24] MEDS: Warfarin 3 MG, Warfarin 0.5 MG 3.5 MG PO (17:38)
[2023-07-24 22:00] VITALS: BP 145/49; PULSE 63
[2023-07-24] MEDS: Atorvastatin Calcium 80 MG Tablet PO (22:09)
[2023-07-24] MEDS: Nortriptyline 25 MG Capsule 100 MG PO (22:09)
[2023-07-25] MEDS: Levothyroxine 100 MCG Tablet PO (05:33)
[2023-07-25] MEDS: Sucralfate 1 GM Tablet PO ×2 (05:33→21:03)
[2023-07-25] MEDS: levETIRAcetam 1,000 MG Tablet 1000 MG PO ×2 (08:52→21:02)
[2023-07-25] MEDS: DULoxetine Hcl 60 MG Capsule PO (08:52)
[2023-07-25] MEDS: Cholecalciferol (VIT D3) 25 MCG TABLET (1,000 UNITS) 50 MCG PO (08:52)
[2023-07-25] MEDS: Ascorbic Acid 500 MG Tablet PO ×2 (08:52→16:30)
[2023-07-25] MEDS: Pantoprazole Sodium 40 MG Tablet PO (08:52)
[2023-07-25] MEDS: Allopurinol 100 MG Tablet PO (08:52)
[2023-07-25] MEDS: Iron Polysaccharide Complex 150 MG CAPSULE PO (08:52)
[2023-07-25] MEDS: Metaxalone 800 MG Tablet 400 MG PO ×2 (08:53→21:02)
[2023-07-25] MEDS: Flecainide 100 MG Tablet PO ×2 (08:53→21:03)
[2023-07-25] MEDS: Memantine Hydrochloride 10 MG Tablet PO ×2 (08:53→21:02)
[2023-07-25] MEDS: OXcarbazepine 150 MG Tablet PO ×2 (08:53→21:02)
[2023-07-25] MEDS: Senna/Docusate Sodium 1 Tablet PO ×2 (08:53→21:02)
[2023-07-25 08:54] VITALS: BP 135/61; PULSE 64
[2023-07-25] MEDS: Fluticasone Propionate 110 MCG AER.W.ADAP 2 PUFF INHALATION ×2 (08:54→21:03)
[2023-07-25] MEDS: Metoprolol(XL)Succ 25 MG Tablet 12.5 MG PO (08:54)
[2023-07-25] MEDS: Vibegron 75 MG TABLET PO (08:54)
[2023-07-25] MEDS: Tuberculin,Purif.prot.deriv. 50 TU/ML Vial 0.1 ML ID (11:20)
[2023-07-25 15:24] VITALS: BP 138/56; PULSE 61; RESP 16; TEMP 36.1; O2SAT 96
[2023-07-25] MEDS: Warfarin 3 MG, Warfarin 0.5 MG 3.5 MG PO (16:30)
[2023-07-25] MEDS: Nortriptyline 25 MG Capsule 100 MG PO (21:00)
[2023-07-25] MEDS: Atorvastatin Calcium 80 MG Tablet PO (21:02)
[2023-07-25 21:25] VITALS: PULSE 62; RESP 16; O2SAT 95
[2023-07-26] MEDS: Sucralfate 1 GM Tablet PO ×2 (05:36→21:02)
[2023-07-26] MEDS: Levothyroxine 100 MCG Tablet PO (05:36)
[2023-07-26 06:34] LABS: Absolute Lymphocyte Count 0.69 X10^3/uL (0.83-4.51); Absolute Neutrophil Count 4.9 X10^3/uL (2.0-7.7); Basophil# 0.03 X10^3/uL; Basophil% 0.5 % (0-1); Eosinophil# 0.34 X10^3/uL; Eosinophils% 5.3 % (0-5); Hematocrit 27.6 % (37-47); Hemoglobin 8.5 g/dL (12.0-15.0); Lymphocyte # 0.69 X10^3/ul (0.83-4.51); Lymphocyte % 10.7 % (19-41); Mean Corp Hgb Conc 30.8 g/dL (32-36); Mean Corpuscular Hgb 30.1 pg (27.0-32.0); Mean Corpuscular Volume 97.9 fL (81-99); Mean Platelet Vol. 9.7 fl (6.2-12.0); Monocyte# 0.51 X10^3/uL; Monocyte% 7.9 % (0-10); NRBC Flagged by Analyzer 0 % (0-5); Neutrophil # 4.86 X10^3/uL (2.7-7.7); Neutrophil % 75.1 % (47-70); Platelet Count 247 K/mm3 (150-450); RBC Distribution Width CV 14.6 % (11.6-14.6); RBC Distribution Width SD 51.9 fl (35.1-43.9); Red Blood Count 2.82 M/mm3 (4.2-5.4); White Blood Count 6.5 K/mm3 (4.4-11.0)
[2023-07-26 06:45] LABS: International Normalized Ratio 2.1; Prothrombin Time (Protime)PT. 23.1 SECONDS (11.7-14.9)
[2023-07-26 07:02] LABS: Anion Gap 1 (5-15); BUN 29 mg/dL (7-18); BUN/Creat Ratio 22.5 RATIO (10-20); Calcium,Total 9.1 mg/dL (8.5-10.1); Chloride 112 mmol/L (98-107); Creatinine, Serum 1.29 mg/dL (0.55-1.02); EST Glomerular Filtration Rate 42 mL/min (>60); Est Glom Filt Rate - Afr Amer 51 mL/min (>60); Estimated Creatinine Clearance 41.64 ml/min; Glucose 85 mg/dL (74-106); Potassium 4.2 mmol/L (3.5-5.1); Sodium Level 142 mmol/L (136-145)
[2023-07-26 09:05] VITALS: BP 137/50; PULSE 65
[2023-07-26] MEDS: Vibegron 75 MG TABLET PO (09:05)
[2023-07-26] MEDS: Memantine Hydrochloride 10 MG Tablet PO ×2 (09:05→21:02)
[2023-07-26] MEDS: Flecainide 100 MG Tablet PO ×2 (09:05→21:04)
[2023-07-26] MEDS: DULoxetine Hcl 60 MG Capsule PO (09:05)
[2023-07-26] MEDS: Senna/Docusate Sodium 1 Tablet PO (09:05)
[2023-07-26] MEDS: levETIRAcetam 1,000 MG Tablet 1000 MG PO ×2 (09:05→21:02)
[2023-07-26] MEDS: Ascorbic Acid 500 MG Tablet PO ×2 (09:05→17:08)
[2023-07-26] MEDS: Iron Polysaccharide Complex 150 MG CAPSULE PO (09:05)
[2023-07-26] MEDS: Fluticasone Propionate 110 MCG AER.W.ADAP 2 PUFF INHALATION ×2 (09:05→21:02)
[2023-07-26] MEDS: Pantoprazole Sodium 40 MG Tablet PO (09:05)
[2023-07-26] MEDS: Allopurinol 100 MG Tablet PO (09:05)
[2023-07-26] MEDS: Metoprolol(XL)Succ 25 MG Tablet 12.5 MG PO (09:05)
[2023-07-26] MEDS: Metaxalone 800 MG Tablet 400 MG PO ×2 (09:05→21:03)
[2023-07-26] MEDS: OXcarbazepine 150 MG Tablet PO ×2 (09:05→21:04)
[2023-07-26] MEDS: Cholecalciferol (VIT D3) 25 MCG TABLET (1,000 UNITS) 50 MCG PO (09:05)
--- NOTE | 2023-07-26 09:29 | NURSING ---
Stretching Machine Tender Frame Note; MDS for 07/24/2023 Complete
[2023-07-26 10:00] VITALS: O2SAT 97
[2023-07-26 14:46] VITALS: BP 116/45; PULSE 67; RESP 16; TEMP 36.4; O2SAT 96
[2023-07-26] MEDS: Warfarin 3 MG, Warfarin 0.5 MG 3.5 MG PO (17:07)
[2023-07-26] MEDS: Nortriptyline 25 MG Capsule 100 MG PO (21:01)
[2023-07-26] MEDS: Atorvastatin Calcium 80 MG Tablet PO (21:02)
[2023-07-27] MEDS: Sucralfate 1 GM Tablet PO ×2 (05:23→21:30)
[2023-07-27] MEDS: Levothyroxine 100 MCG Tablet PO (05:23)
[2023-07-27 05:44] LABS: Hematocrit 29.5 % (37-47); Hemoglobin 9.1 g/dL (12.0-15.0)
[2023-07-27] MEDS: Allopurinol 100 MG Tablet PO (08:59)
[2023-07-27] MEDS: Cholecalciferol (VIT D3) 25 MCG TABLET (1,000 UNITS) 50 MCG PO (08:59)
[2023-07-27] MEDS: Fluticasone Propionate 110 MCG AER.W.ADAP 2 PUFF INHALATION ×2 (08:59→21:32)
[2023-07-27] MEDS: Ascorbic Acid 500 MG Tablet PO ×2 (08:59→16:32)
[2023-07-27] MEDS: Iron Polysaccharide Complex 150 MG CAPSULE PO (08:59)
[2023-07-27] MEDS: DULoxetine Hcl 60 MG Capsule PO (08:59)
[2023-07-27 09:00] VITALS: BP 141/60; PULSE 63
[2023-07-27] MEDS: Memantine Hydrochloride 10 MG Tablet PO ×2 (09:00→21:30)
[2023-07-27] MEDS: Pantoprazole Sodium 40 MG Tablet PO (09:00)
[2023-07-27] MEDS: Metaxalone 800 MG Tablet 400 MG PO ×2 (09:00→21:30)
[2023-07-27] MEDS: levETIRAcetam 1,000 MG Tablet 1000 MG PO ×2 (09:00→21:30)
[2023-07-27] MEDS: Vibegron 75 MG TABLET PO (09:00)
[2023-07-27] MEDS: Flecainide 100 MG Tablet PO ×2 (09:00→21:30)
[2023-07-27] MEDS: Metoprolol(XL)Succ 25 MG Tablet 12.5 MG PO (09:00)
[2023-07-27] MEDS: OXcarbazepine 150 MG Tablet PO ×2 (09:01→21:30)
--- NOTE | 2023-07-27 12:55 | CASEMGMT ---
Addendum entered by Melly Juarez 07/27/23 13:43: 1302 SW received a return call from Germaine Khan. Fátima informed SW that she would like to arrange a meeting between herself, her sister and RUBY. Fátima explained that she has questions regarding discharge plans and senior living care options for the patient. SW reviewed current recommendations from therapy for 24/hr care v. senior living care in retirement. Fátima informed SW that she would like to have patient discharged to retirement for continued rehabilitation. SW informed Fátima that the patient would require intermediate care in a facility until skilled services can be identified. SW informed Fátima that intermediate care is private pay and discussed cost. Fátima informed SW that the patient does not have the finances to cover cost of staying in a facility. SW discussed alternative. Fátima requested that continued conversation takes place in person. SW informed Fátima Khan of [employer] Notice of Medicare Non-Coverage for current Nursing Home Services effective: 07/30/2023; anticipated discharge on 07/31/2023. Fátima informed SW that she is aware of [facility]. Fátima requested information on how to appeal decision. SW informed Fátima of patient's medicare rights to appeal via [employer] and provided contact information [phone]. Fátima informed SW that she may initiate an appeal as she feels like the patient is not ready to discharge at this time. Fátima requested meeting with SW on 07/28/2023 at 3PM. SW met with patient to notify of discharge [facility]. The patient informed SW that she would like to return home with home health. Patient states that she has everything in home to support care. SW informed patient that therapy is recommending 24hr care or senior living care. Patient informed SW that she will discuss with daughter. Original Note: Social Work SW received a voicemail from patient's daughter, Fátima Khan to discuss discharge and request in person meeting with RUBY. SW received [employer] Notice of Medicare Non-Coverage for current Nursing Home Services effective date: 07/30/2023; anticipated discharge 07/31/2023 SW returned Fátima meadows call, but Fátima requested to return SW call due to being busy at this time. RUBY awaiting return call from daughter PAULINE Bowden
[2023-07-27 14:00] VITALS: BMI 42.6
[2023-07-27 15:19] VITALS: BP 141/60; PULSE 93; RESP 18; TEMP 36.1; O2SAT 97
[2023-07-27] MEDS: Warfarin 3 MG, Warfarin 0.5 MG 3.5 MG PO (16:32)
--- NOTE | 2023-07-27 18:04 | CASEMGMT ---
Social Work SW received call from [facility] informing SW that the patient was discharged from Home Health Care services upon admission to hospital. Patient will require new home health care referral for care. Patient previously had [facility] PT/OT/SN/ST. [facility] is agreeable to accept patient for home health care services. Family meeting 07/28/2023 at 3PM Tentative discharge: [facility] PT/OT/ST/SN 07/31/2023 PAULINE Bowden
--- NOTE | 2023-07-27 18:49 | DS.PCM_ITS ---
Providers Date of Admission: 07/17/23 Primary Care Physician: Dr. Kishore Ricci MD Consultations 07/18/23 10:18 Consult: Gastroenterology Routine Consulting Provider: [facility] Reason for Consult: Anemia, positive hemoccult. EMERGENT Consult: No MD Notified: Yes Date Notified: 07/19/23 Time Notified: 10:15 Method of Notification: Text Reason For Visit: DEBILITY Diagnosis Discharge Diagnosis (1) Acute lower GI bleeding: Status: Resolved Code(s): K92.2 - Gastrointestinal hemorrhage, unspecified Plan 78 year old female with below past medical history hospitalized for hematuria 2/2 hemorrhagic UTI, complicated by GI bleed, supratherapeutic INR, iron deficiency anemia, recent stroke, failed home discharge with [facility], admitted to TCU with debility, here for rehabilitation, strengthening, prior to discharge home alone. * Debility - PT/OT. * Pain - Tylenol 1000mg q6 prn pain (1-5), [place] 5/325mg bid prn pain (6-10). * Bowel - senna/colace 1 tablet bid, Dulcolax 10mg po daily prn. * Adult immunization - Administer pneumonia vaccine, covid vaccine, flu vaccine as appropriate. * DVT prophylaxis - on warfarin. * Iron deficiency anemia - Ferrex 150mg daily, Vitamin C 500mg daily. * Gout - Allopurinol 100mg daily. * Hypothyroidism - Levothyroxine 100mcg daily. * Seizure disorder - Keppra 1000mg bid, Oxcarbazepine 150mg bid. * Hypertension - Metoprolol succinate 12.5mg daily, Amlodipine 5mg daily. * Overactive bladder - Gemtesa 75mg daily. * Vascular dementia - Memantine 10mg bid. * Insomnia - Nortriptyline 100mg qhs, Mirtazapine 7.5mg qhs prn, stable chronic half-way use, GDR not recommended. * Muscle spasm - Skelaxin 400mg bid. * Depression - Duloxetine 60mg daily, stable chronic half-way use, GDR not recommended. * Vitamin D deficiency - D3 2000IU daily. * GERD - Pantoprazole 40mg daily. * Allergic rhinitis - Flonase 220mcg 2 puffs nasal bid. * Hyperlipidemia - Atorvastatin 80mg qhs. * Atrial fibrillatin - Metoprolol 12.5mg daily, Flecainide 100mg bid, warfarin 4mg daily monitor INR. * Hx of AVR - Warfarin 4mg daily, monitor INR. * Stroke - Warfarin 4mg daily, monitor INR. Medications at Discharge Home Medications allopurinol 100 mg tablet 100 mg PO DAILY GOUT #90 tabs 02/22/19 levothyroxine 100 mcg tablet 100 mcg PO DAILY THYROID #90 tabs 02/22/19 levetiracetam 1,000 mg tablet (Keppra) 1,000 mg PO BID EPILEPSY 06/06/21 oxcarbazepine 150 mg tablet 150 mg PO BID EPILESPSY 09/12/21 metoprolol succinate 25 mg tablet,extended release 24 hr 12.5 mg PO DAILY HEART #90 tabs 11/25/21 memantine 10 mg tablet 10 mg PO BID MEMORY 02/22/23 vibegron 75 mg tablet (Gemtesa) 75 mg PO DAILY OVERACTIVE BLADDER 02/22/23 duloxetine 60 mg capsule,delayed release 60 mg PO DAILY DEPRESSION 03/17/23 metaxalone 400 mg tablet 400 mg PO BID MUSCLE SPASMS/PAIN 03/17/23 nitroglycerin 0.4 mg sublingual tablet (Nitrostat) 0.4 mg sublingual Q5M PRN CHEST PAIN 03/17/23 nortriptyline 50 mg capsule 100 mg PO 1999 DEPRESSION 03/17/23 cholecalciferol (vitamin D3) 50 mcg (2,000 unit) capsule (D3-2000) 2,000 unit PO DAILY vitamin 06/20/23 omeprazole 40 mg capsule,delayed release 40 mg PO DAILY reflux 06/20/23 fluticasone propionate 220 mcg/actuation HFA aerosol inhaler 2 inh inhalation BID asthma 06/21/23 rosuvastatin 40 mg tablet 40 mg PO QHS cholesterol 1 month #30 tabs 06/22/23 warfarin 6 mg tablet (Jantoven) 6 mg PO DAILY@1700 30 days #30 tabs 06/22/23 mirtazapine 7.5 mg tablet 3.75 - 7.5 mg PO QHS PRN antidepressant 07/07/23 ascorbic acid (vitamin C) 500 mg tablet 500 mg PO BID vitamin C #60 tabs 07/11/23 ferrous fumarate 324 mg (106 mg iron) tablet 324 mg PO DAILY iron 1 month #30 tabs 07/11/23 warfarin 4 mg tablet 4 mg PO DAILY BLOOD THINNER #7 tabs 07/11/23 acetaminophen 500 mg tablet 1,000 mg (2 x 500 mg) PO Q6H PRN PRN Pain Score 1-10 #0 tabs 07/27/23 flecainide 100 mg tablet 100 mg PO BID 30 days #60 tabs 07/27/23 polysaccharide iron complex 150 mg iron capsule (Ferrex) 150 mg PO DAILY 30 days #30 caps 07/27/23 sucralfate 1 gram tablet 1 g PO 0700,2200 30 days #60 tabs 07/27/23 Hospital Course Operations None Procedures - (07/22/[address] Cordoba[address] Summary of Care Provided Minutes Spent on Discharge: 35 Hospital Course: 78 year old female with below past medical history hospitalized for hematuria 2/2 hemorrhagic UTI, complicated by GI bleed, supratherapeutic INR, iron deficiency anemia, recent stroke, failed home discharge with [facility], admitted to TCU with debility, here for rehabilitation, strengthening, prior to discharge home alone. Discharge home alone 07/31/2023, [facility] PT/OT/ST/SN. Physical Exam Const alert General Appearance: cooperative HEENT normocephalic Eyes PERRL and EOMs intact bilaterally Neck supple, no JVD and no carotid bruits Resp normal respiratory effort, normal air movement and clear to auscultation bilaterally Cardio
--- NOTE | 2023-07-27 18:49 | PCM.DC.SUM ---
Providers Date of Admission: 07/17/23 Primary Care Physician: Dr. Kishore Ricci MD Consultations 07/18/23 10:18 Consult: Gastroenterology Routine Consulting Provider: [facility] Reason for Consult: Anemia, positive hemoccult. EMERGENT Consult: No MD Notified: Yes Date Notified: 07/19/23 Time Notified: 10:15 Method of Notification: Text Reason For Visit: DEBILITY Diagnosis Discharge Diagnosis (1) Acute lower GI bleeding: Status: Resolved Code(s): K92.2 - Gastrointestinal hemorrhage, unspecified Plan 78 year old female with below past medical history hospitalized for hematuria 2/2 hemorrhagic UTI, complicated by GI bleed, supratherapeutic INR, iron deficiency anemia, recent stroke, failed home discharge with [facility], admitted to TCU with debility, here for rehabilitation, strengthening, prior to discharge home alone. Debility - PT/OT. Pain - Tylenol 1000mg q6 prn pain (1-5), [place] 5/325mg bid prn pain (6-10). Bowel - senna/colace 1 tablet bid, Dulcolax 10mg po daily prn. Adult immunization - Administer pneumonia vaccine, covid vaccine, flu vaccine as appropriate. DVT prophylaxis - on warfarin. Iron deficiency anemia - Ferrex 150mg daily, Vitamin C 500mg daily. Gout - Allopurinol 100mg daily. Hypothyroidism - Levothyroxine 100mcg daily. Seizure disorder - Keppra 1000mg bid, Oxcarbazepine 150mg bid. Hypertension - Metoprolol succinate 12.5mg daily, Amlodipine 5mg daily. Overactive bladder - Gemtesa 75mg daily. Vascular dementia - Memantine 10mg bid. Insomnia - Nortriptyline 100mg qhs, Mirtazapine 7.5mg qhs prn, stable chronic internal affairs investigator use, GDR not recommended. Muscle spasm - Skelaxin 400mg bid. Depression - Duloxetine 60mg daily, stable chronic residential use, GDR not recommended. Vitamin D deficiency - D3 2000IU daily. GERD - Pantoprazole 40mg daily. Allergic rhinitis - Flonase 220mcg 2 puffs nasal bid. Hyperlipidemia - Atorvastatin 80mg qhs. Atrial fibrillatin - Metoprolol 12.5mg daily, Flecainide 100mg bid, warfarin 4mg daily monitor INR. Hx of AVR - Warfarin 4mg daily, monitor INR. Stroke - Warfarin 4mg daily, monitor INR. Medications at Discharge Home Medications allopurinol 100 mg tablet 100 mg PO DAILY GOUT #90 tabs 02/22/19 levothyroxine 100 mcg tablet 100 mcg PO DAILY THYROID #90 tabs 02/22/19 levetiracetam 1,000 mg tablet (Keppra) 1,000 mg PO BID EPILEPSY 06/06/21 oxcarbazepine 150 mg tablet 150 mg PO BID EPILESPSY 09/12/21 metoprolol succinate 25 mg tablet,extended release 24 hr 12.5 mg PO DAILY HEART #90 tabs 11/25/21 memantine 10 mg tablet 10 mg PO BID MEMORY 02/22/23 vibegron 75 mg tablet (Gemtesa) 75 mg PO DAILY OVERACTIVE BLADDER 02/22/23 duloxetine 60 mg capsule,delayed release 60 mg PO DAILY DEPRESSION 03/17/23 metaxalone 400 mg tablet 400 mg PO BID MUSCLE SPASMS/PAIN 03/17/23 nitroglycerin 0.4 mg sublingual tablet (Nitrostat) 0.4 mg sublingual Q5M PRN CHEST PAIN 03/17/23 nortriptyline 50 mg capsule 100 mg PO 1999 DEPRESSION 03/17/23 cholecalciferol (vitamin D3) 50 mcg (2,000 unit) capsule (D3-1999) 2,000 unit PO DAILY vitamin 06/20/23 omeprazole 40 mg capsule,delayed release 40 mg PO DAILY reflux 06/20/23 fluticasone propionate 220 mcg/actuation HFA aerosol inhaler 2 inh inhalation BID asthma 06/21/23 rosuvastatin 40 mg tablet 40 mg PO QHS cholesterol 1 month #30 tabs 06/22/23 warfarin 6 mg tablet (Jantoven) 6 mg PO DAILY@1700 30 days #30 tabs 06/22/23 mirtazapine 7.5 mg tablet 3.75 - 7.5 mg PO QHS PRN antidepressant 07/07/23 ascorbic acid (vitamin C) 500 mg tablet 500 mg PO BID vitamin C #60 tabs 07/11/23 ferrous fumarate 324 mg (106 mg iron) tablet 324 mg PO DAILY iron 1 month #30 tabs 07/11/23 warfarin 4 mg tablet 4 mg PO DAILY BLOOD THINNER #7 tabs 07/11/23 acetaminophen 500 mg tablet 1,000 mg (2 x 500 mg) PO Q6H PRN PRN Pain Score 1-10 #0 tabs 07/27/23 flecainide 100 mg tablet 100 mg PO BID 30 days #60 tabs 07/27/23 polysaccharide iron complex 150 mg iron capsule (Ferrex) 150 mg PO DAILY 30 days #30 caps 07/27/23 sucralfate 1 gram tablet 1 g PO 0700,2200 30 days #60 tabs 07/27/23 Hospital Course Operations None Procedures - (07/22/[address] Cordoba[address] Summary of Care Provided Minutes Spent on Discharge: 35 Hospital Course: 78 year old female with below past medical history hospitalized for hematuria 2/2 hemorrhagic UTI, complicated by GI bleed, supratherapeutic INR, iron deficiency anemia, recent stroke, failed home discharge with [facility], admitted to TCU with debility, here for rehabilitation, strengthening, prior to discharge home alone. Discharge home alone 07/31/2023, [facility] PT/OT/ST/SN. Physical Exam Const alert General Appearance: cooperative HEENT normocephalic Eyes PERRL and EOMs intact bilaterally Neck supple, no JVD and no carotid bruits Resp normal respiratory effort, normal air movement and clear to auscultation bilaterally Cardio regular rate and regular rhythm Cardio Narrative: Click. GI normal to inspection, nondistended, normoactive bowel sounds, non-tender and non-distended Extremity normal capillary refill General Extremity: Negative for edema Skin no rashes or lesions noted General Skin Exam: no breakdown Neuro moves all extremities Psych affect normal Appearance: appropriate Weight / BMI Weight Weight: 113.262 kg Body Mass Index (BMI) 42.6 ABG / Lab / Microbiology Data 07/27/23 05:35 07/26/23 05:19 Laboratory: Laboratory Results - last 24 hr 07/27/23 05:35: Hgb 9.1 L, Hct 29.5 L D/C Instructions Discharge Diet: No restrictions Discharge Activity: Return to Normal Activity, May Shower and Use Walker Weight Bearing Status: Weight bearing as tolerated Call your doctor if you observe: Fever of 101 or Higher, Inability to urinate, Inability to have a bowel movement, Shortness of breath, Dizziness, Fainting spells, Swelling in the ankles, Chest pain and Uncontrolled pain Additional Instructions: Discharge home alone 07/31/2023, [facility] PT/OT/ST/SN. Meaningful Use Info Meaningful Use Meaningful Use Diagnoses (Choose all that apply): None applicable Ischemic Stroke Statin Dosing Therapy Reference: STATIN DOSE THERAPY REFERENCE: * Patients > 75 years receive moderate or high dose statin therapy. * Patients 75 years or YOUNGER should receive HIGH intensity statin dose unless contraindicated. You will be required to document reason for non-treatment if statin daily dose does not meet guidelines. HIGH DOSE STATIN THERAPY DAILY Atorvastatin > than or = to 40 mg Rosuvastatin > than or = to 20 mg Amlodipine + Atorvastatin > than or = to 2.5/40 mg Ezetimibe + Simvastatin 10/80 mg Simvastatin 80mg Discharge Plan Admission Admit Date/Time: 07/17/23 11:00 Primary Reason for Your Visit: Debility. Attending Provider: Virgil Jimenez Chi Primary Care Provider: Kishore Ricci Instructions Additional Instructions / Restrictions: Discharge home alone 07/31/2023, [facility] PT/OT/ST/SN. Discharge Orders/Prescriptions Prescriptions: New sucralfate 1 gram Tablet 1 g PO 0700,2200 30 Days Qty: 60 0RF polysaccharide iron complex [Ferrex 150] 150 mg iron Capsule 150 mg PO DAILY 30 Days Qty: 30 0RF acetaminophen 500 mg Tablet 1,000 mg PO Q6H PRN PRN (Reason: Pain Score 1-10) Qty: 0 0RF flecainide 100 mg Tablet 100 mg PO BID 30 Days Qty: 60 0RF Continued allopurinol 100 mg tablet 100 mg PO DAILY Qty: 90 levothyroxine 100 mcg tablet 100 mcg PO DAILY Qty: 90 levetiracetam [Keppra] 1,000 mg tablet 1,000 mg PO BID oxcarbazepine 150 mg tablet 150 mg PO BID metoprolol succinate 25 mg tablet extended release 24 hr 12.5 mg PO DAILY Qty: 90 Gemtesa 75 mg tablet 75 mg PO DAILY memantine 10 mg tablet 10 mg PO BID nortriptyline 50 mg capsule 100 mg PO 2000 metaxalone 400 mg tablet 400 mg PO BID duloxetine 60 mg capsule,delayed release(DR/EC) 60 mg PO DAILY nitroglycerin [Nitrostat] 0.4 mg tablet, sublingual 0.4 mg sublingual Q5M PRN (Reason: CHEST PAIN ) Rx Instructions: do not exceed 3 doses per episode cholecalciferol (vitamin D3) [] 50 mcg (2,000 unit) capsule 2,000 unit PO DAILY omeprazole 40 mg capsule,delayed release(DR/EC) 40 mg PO DAILY fluticasone propionate 220 mcg/actuation HFA aerosol inhaler 2 inh inhalation BID warfarin [] 6 mg Tablet 6 mg PO DAILY@1700 30 Days Qty: 30 1RF Protocol: Dose Management Condition: Wednesday Dose/Route: 2 mg Instruction: 0.5 x 4 mg tablets Condition: Wednesday Dose/Route: 4 mg Instruction: 1 x 4 mg tablet Condition: Wednesday Dose/Route: 4 mg Instruction: 1 x 4 mg tablet Condition: Wednesday Dose/Route: 4 mg Instruction: 1 x 4 mg tablet Condition: Dose/Route: 4 mg Instruction: 1 x 4 mg tablet Condition: Wednesday Dose/Route: 4 mg Instruction: 1 x 4 mg tablet Condition: Wednesday Dose/Route: 4 mg Instruction: 1 x 4 mg tablet Protocol Text: Adjustment Start Date: Wednesday07/13/23 INR Value: 2.7 INR Date: 07/13/23 Recheck Date: 07/20/23 Patient Comments: family states shes supposed to take none on 07/07/23 and 07/08/23 and start back on the depending on INR Rx Instructions: Keep INR between 2.5-3.5, average 3.0. Hold if INR more than 3.5 rosuvastatin 40 mg tablet 40 mg PO QHS 30 Days Qty: 30 4RF mirtazapine 7.5 mg tablet 3.75 - 7.5 mg PO QHS PRN (Reason: antidepressant) warfarin 4 mg tablet 4 mg PO DAILY Qty: 7 0RF Protocol: Dose Management Condition: Wednesday Dose/Route: 2 mg Instruction: 0.5 x 4 mg tablets Condition: Wednesday Dose/Route: 4 mg Instruction: 1 x 4 mg tablet Condition: Wednesday Dose/Route: 4 mg Instruction: 1 x 4 mg tablet Condition: Wednesday Dose/Route: 4 mg Instruction: 1 x 4 mg tablet Condition: Dose/Route: 4 mg Instruction: 1 x 4 mg tablet Condition: Wednesday Dose/Route: 4 mg Instruction: 1 x 4 mg tablet Condition: Wednesday Dose/Route: 4 mg Instruction: 1 x 4 mg tablet Protocol Text: Adjustment Start Date: Wednesday07/13/23 INR Value: 2.7 INR Date: 07/13/23 Recheck Date: 07/20/23 Patient Comments: family states shes supposed to take none on 07/07/23 and 07/08/23 and start back on the depending on INR Rx Instructions: Start from 07/12/23. INR Tomorrow am ferrous fumarate 324 mg (106 mg iron) tablet 324 mg PO DAILY 30 Days Qty: 30 2RF ascorbic acid (vitamin C) 500 mg tablet 500 mg PO BID Qty: 60 2RF Discontinued hydrocodone-acetaminophen 5-325 mg tablet 1 tab PO BID PRN (Reason: PAIN ) Patient Comments: PT STATES TAKES NEEDED (03-18-23) Probiotic Acidophilus 250 million cell capsule 1,000 mmu cells PO DAILY amlodipine 10 mg tablet 5 mg PO DAILY furosemide [Lasix] 40 mg tablet 40 mg PO DAILY Qty: 30 11RF Rx Instructions: Take one a day for 5 days then as directed ondansetron HCl 4 mg tablet 4 mg PO TID PRN (Reason: nausea and vomiting) Nurtec ODT 75 mg tablet,disintegrating 75 mg PO QODAY flecainide 100 mg tablet 100 mg PO BID Referrals / Follow Up: Katelin Cordoba MD [Med Staff - Active Staff] - 08/03/23 11:50 am Kishore Ricci MD [Primary Care Provider] - 08/06/23 2:00 pm (They will call if they have an earlier appointment) Disposition Disposition (needs filled in before D/C Order can be placed): Home Health Service
[2023-07-27] MEDS: Nortriptyline 25 MG Capsule 100 MG PO (20:08)
[2023-07-27 20:15] VITALS: PULSE 73; RESP 18; O2SAT 98
[2023-07-27] MEDS: Atorvastatin Calcium 80 MG Tablet PO (21:29)
--- NOTE | 2023-07-28 04:44 | NURSING ---
Patient noted to have 2-3+ pitting edema in BLE. MILLICENT wraps ordered. No diuretics in use at this time. Communication left for Dr. Jimenez. Will continue to monitor.
[2023-07-28] MEDS: Sucralfate 1 GM Tablet PO ×2 (06:07→21:39)
[2023-07-28] MEDS: Levothyroxine 100 MCG Tablet PO (06:07)
[2023-07-28 06:14] VITALS: PULSE 58; RESP 16; O2SAT 96
[2023-07-28] MEDS: Allopurinol 100 MG Tablet PO (07:53)
[2023-07-28] MEDS: DULoxetine Hcl 60 MG Capsule PO (07:53)
[2023-07-28] MEDS: Ascorbic Acid 500 MG Tablet PO ×2 (07:53→16:57)
[2023-07-28] MEDS: Cholecalciferol (VIT D3) 25 MCG TABLET (1,000 UNITS) 50 MCG PO (07:53)
[2023-07-28] MEDS: Fluticasone Propionate 110 MCG AER.W.ADAP 2 PUFF INHALATION ×2 (07:54→21:38)
[2023-07-28] MEDS: Iron Polysaccharide Complex 150 MG CAPSULE PO (07:54)
[2023-07-28] MEDS: Vibegron 75 MG TABLET PO (07:54)
[2023-07-28] MEDS: Pantoprazole Sodium 40 MG Tablet PO (07:55)
[2023-07-28] MEDS: Memantine Hydrochloride 10 MG Tablet PO ×2 (07:55→21:38)
[2023-07-28] MEDS: levETIRAcetam 1,000 MG Tablet 1000 MG PO ×2 (07:55→21:39)
[2023-07-28] MEDS: Flecainide 100 MG Tablet PO ×2 (07:56→21:38)
[2023-07-28] MEDS: Metaxalone 800 MG Tablet 400 MG PO ×2 (07:56→21:38)
[2023-07-28] MEDS: OXcarbazepine 150 MG Tablet PO ×2 (07:57→21:38)
[2023-07-28 08:00] VITALS: BP 163/62; PULSE 61
[2023-07-28] MEDS: Metoprolol(XL)Succ 25 MG Tablet 12.5 MG PO (08:00)
[2023-07-28] MEDS: Furosemide 40 MG Tablet PO (08:17)
--- NOTE | 2023-07-28 15:00 | CASEMGMT ---
Social Work SW met with patient's daughters Cady and Fátima to discuss discharge plans. SW inquired about appeal for discharge. Fátima informed SW that she will not be appealing discharge at this time. Fátima inquired about line service person care services. RUBY reviewed current recommendations from therapy for 24/hr care in home v. penitentiary care placement in jail. Patient's daughter informed RUBY that patient's son will be coming from [place] to assist with patient care. Patient son plans to live with patient temporarily to assist with patient care. SW discussed penitentiary care placement at jail and [place] line service person services. Patient is a spouse of a . Fátima was provided resources for [facility] home aide services. Fátima inquired about the insurance coverage of a nursing facility. RUBY informed Fátima that insurance coverage is determined by evaluation of skilled need; currently Medicare insurance has discontinued services effective 07/30/2023. Should patient require jail placement; family would be responsible for covering room and board under intermediate care. Patient's daughter informed RUBY that the patient does not have the finances to cover for placement at this time. Patient makes too much to qualify for Medicaid at this time. SW discussed Medicaid spend down. Patient's daughter inquired about patient going home with cameras in the home. SW discussed concerns for falls without physical support in the home. SW requested that therapy discussed concerns for being home without family. Grecia met with daughters and discussed therapy recommendations. Patient's daughters agreed to discharge home with home health and transition to custodial, if patient is unable to stay in home. RUBY provided a printed list of SNF for patient's family to review for future placement. Patient had home health care via [facility] PT/OT/SN prior to rehospitalization. Patient and family would like to return home with [facility] PT/OT/ST/BRICK HANDLER/CONSULTING SALES EXECUTIVE 07/31/2023. PAUILNE Bowden
[2023-07-28 15:33] VITALS: BP 150/53; PULSE 61; RESP 16; TEMP 36.3; O2SAT 96
[2023-07-28] MEDS: Warfarin 3 MG, Warfarin 0.5 MG 3.5 MG PO (16:58)
[2023-07-28] MEDS: Acetaminophen 500 MG Tablet 1000 MG PO (17:02)
[2023-07-28] MEDS: Nortriptyline 25 MG Capsule 100 MG PO (19:41)
[2023-07-28] MEDS: Atorvastatin Calcium 80 MG Tablet PO (21:39)
--- NOTE | 2023-07-29 01:44 | NURSING ---
Patient's alarm was sounding, a nurse went in, assisted her to the bathroom. Patient was very angry and did not want staff to help her. Patient attempting to put depend on, first sitting, then standing, bent over. The nurse asked this nurse for assistance. Requested patient sit down on toilet so we could help her put them on without her falling and injuring herself. After assisting her, she stated do not touch me again. We walked her to her bed, she sat down and put her head on her walker. She then sat up, accused us of laughing at her. She then asked for her phone, the other nurse handed it to her. She scrolled through it for a little bit then dialed [phone]--1. She was asked who she was calling and she stated the police. She was talking to dispatcher, telling them that 2 nurses accosted her at the hospital and she needed them to come. She told them that she was in room 308 on Transitional care. After she hung up from that call, she called her daughter. I talked with her daughter on the phone at the nurse's station. She wanted to know if she should come in, I told her I didn't think it was necessary, but I would contact her if anything changed. She was ok with that. While I was talking to the daughter, one of the HEALTH SCIENCES PROGRAM COORDINATOR's was in her room offering support, she was able to get her to lay down to try to rest. Also at this time, an officer arrived with the security analyst and natural gas plant supervisor. Discussed the situation with the officer. He did not talk with patient, as she was laying down at this time and calm. Picker remained on unit for a short time.
[2023-07-29] MEDS: Sucralfate 1 GM Tablet PO (06:15)
[2023-07-29] MEDS: Levothyroxine 100 MCG Tablet PO (06:15)
[2023-07-29 06:27] LABS: Hematocrit 27.6 % (37-47); Hemoglobin 8.6 g/dL (12.0-15.0)
[2023-07-29 06:51] LABS: International Normalized Ratio 1.8; Prothrombin Time (Protime)PT. 20.9 SECONDS (11.7-14.9)
--- NOTE | 2023-07-29 07:39 | NURSING ---
Addendum entered by Berkley King 07/29/23 11:52: Pt has been in calm mood this morning, no further agitation/outbursts noted. Original Note: Call placed to daughter Dina to give update on how the rest of the evening went. Patient was calm the rest of the night. Daughter was appreciative of update and stated she will be up to see her this afternoon.
--- NOTE | 2023-07-29 09:07 | CASEMGMT ---
Social Work SW received an e-mail from patient's daughter, Fátima requesting clarification on intermediate care services. SW provided additional resources for clarification of intermediate care. Fátima is in contact with [facility] to identify potential coverage for care home care. PAULINE Bowden
[2023-07-29 10:19] VITALS: BP 165/55; PULSE 67; RESP 18; TEMP 36.3; O2SAT 96
[2023-07-29 10:24] VITALS: PULSE 67
[2023-07-29] MEDS: Pantoprazole Sodium 40 MG Tablet PO (10:24)
[2023-07-29] MEDS: DULoxetine Hcl 60 MG Capsule PO (10:24)
[2023-07-29] MEDS: Metaxalone 800 MG Tablet 400 MG PO (10:24)
[2023-07-29] MEDS: Vibegron 75 MG TABLET PO (10:24)
[2023-07-29] MEDS: Cholecalciferol (VIT D3) 25 MCG TABLET (1,000 UNITS) 50 MCG PO (10:24)
[2023-07-29] MEDS: Metoprolol(XL)Succ 25 MG Tablet 12.5 MG PO (10:24)
[2023-07-29] MEDS: Flecainide 100 MG Tablet PO (10:25)
[2023-07-29] MEDS: Ascorbic Acid 500 MG Tablet PO ×2 (10:25→18:26)
[2023-07-29] MEDS: Furosemide 40 MG Tablet PO (10:25)
[2023-07-29] MEDS: levETIRAcetam 1,000 MG Tablet 1000 MG PO (10:25)
[2023-07-29] MEDS: Memantine Hydrochloride 10 MG Tablet PO (10:25)
[2023-07-29] MEDS: Allopurinol 100 MG Tablet PO (10:25)
[2023-07-29] MEDS: OXcarbazepine 150 MG Tablet PO (10:25)
[2023-07-29] MEDS: Fluticasone Propionate 110 MCG AER.W.ADAP 2 PUFF INHALATION (10:26)
[2023-07-29] MEDS: Iron Polysaccharide Complex 150 MG CAPSULE PO (10:26)
--- NOTE | 2023-07-29 14:35 | MDS.RN ---
Information for the MDS was obtained from review of the clinical record, interview of resident, staff, and direct observation of resident?s care.
[2023-07-29 15:43] VITALS: BP 146/57; PULSE 63
[2023-07-29] MEDS: Warfarin 3 MG, Warfarin 0.5 MG 3.5 MG PO (18:26)
--- NOTE | 2023-07-29 22:35 | NURSING ---
This nurse was preparing hs meds and explained the purpose of each medication to resident. When attempting to administer medications, resident was refusing to take any medications, including inhaler. Educated on the importance of taking medications, especially to prevent seizures. Padded rails in place b/l. Attempted to complete physical assessment. Resident was not cooperative w/ assessment and this nurse was only able to complete a partial assessment. Will continue to monitor.
[2023-07-30] MEDS: Levothyroxine 100 MCG Tablet PO (06:39)
[2023-07-30] MEDS: Sucralfate 1 GM Tablet PO ×2 (06:40→21:11)
--- NOTE | 2023-07-30 08:32 | CASEMGMT ---
Social Work Patient anticipates discharge on 07/31/2023. Patient's son will be providing 24/hr care including daughters, Fátima and Cady assistance with care. Patient and family would like to return home 24/hr care provided by family with [facility] PT/OT/ST/BI DEVELOPER/BUSINESS TEACHER 07/31/2023. PAULINE Bowden
[2023-07-30] MEDS: Iron Polysaccharide Complex 150 MG CAPSULE PO (08:49)
[2023-07-30] MEDS: Cholecalciferol (VIT D3) 25 MCG TABLET (1,000 UNITS) 50 MCG PO (08:49)
[2023-07-30] MEDS: Vibegron 75 MG TABLET PO (08:49)
[2023-07-30] MEDS: Furosemide 40 MG Tablet PO (08:49)
[2023-07-30] MEDS: DULoxetine Hcl 60 MG Capsule PO (08:49)
[2023-07-30] MEDS: levETIRAcetam 1,000 MG Tablet 1000 MG PO ×2 (08:49→21:12)
[2023-07-30] MEDS: Ascorbic Acid 500 MG Tablet PO ×2 (08:49→17:25)
[2023-07-30] MEDS: Allopurinol 100 MG Tablet PO (08:49)
[2023-07-30 08:50] VITALS: PULSE 76
[2023-07-30] MEDS: Flecainide 100 MG Tablet PO ×2 (08:50→21:12)
[2023-07-30] MEDS: Metoprolol(XL)Succ 25 MG Tablet 12.5 MG PO (08:50)
[2023-07-30] MEDS: Senna/Docusate Sodium 1 Tablet PO (08:50)
[2023-07-30] MEDS: Metaxalone 800 MG Tablet 400 MG PO ×2 (08:50→21:12)
[2023-07-30] MEDS: Pantoprazole Sodium 40 MG Tablet PO (08:50)
[2023-07-30] MEDS: Memantine Hydrochloride 10 MG Tablet PO ×2 (08:50→21:12)
[2023-07-30] MEDS: OXcarbazepine 150 MG Tablet PO ×2 (08:51→21:13)
[2023-07-30] MEDS: Fluticasone Propionate 110 MCG AER.W.ADAP 2 PUFF INHALATION ×2 (08:51→21:11)
--- NOTE | 2023-07-30 12:42 | MDS.RN ---
MDS pain interview completed.
--- NOTE | 2023-07-30 14:39 | CASEMGMT ---
Social Work SW met with patient at bedside to review discharge plans with patient. Patient completed MDS with SW. BIM () and PhQ-2 (). Patient expressed feeling lonely for one day when her children told her that she may need to discharge to a usp. Patient and family would like to return home 24/hr care provided by family with [facility] PT/OT/ST/IN SCHOOL SUSPENSION COORDINATOR/FRIED CAKE MAKER 07/31/2023. Home Health Care start of care will be 08/02/2023. Patient's family to provide transportation at discharge. PAULINE Bowden
[2023-07-30 16:00] VITALS: BP 132/65; PULSE 68; RESP 16; TEMP 36.5; O2SAT 98
[2023-07-30] MEDS: Warfarin 3 MG, Warfarin 0.5 MG 3.5 MG PO (17:25)
[2023-07-30] MEDS: Nortriptyline 25 MG Capsule 100 MG PO (21:11)
[2023-07-30] MEDS: Atorvastatin Calcium 80 MG Tablet PO (21:12)
[2023-07-31] MEDS: Levothyroxine 100 MCG Tablet PO (06:01)
[2023-07-31] MEDS: Sucralfate 1 GM Tablet PO (06:01)
[2023-07-31 08:23] VITALS: BP 118/54; PULSE 80; RESP 18; O2SAT 94
[2023-07-31] MEDS: Fluticasone Propionate 110 MCG AER.W.ADAP 2 PUFF INHALATION (08:25)
[2023-07-31] MEDS: OXcarbazepine 150 MG Tablet PO (08:25)
[2023-07-31] MEDS: Cholecalciferol (VIT D3) 25 MCG TABLET (1,000 UNITS) 50 MCG PO (08:25)
[2023-07-31 08:26] VITALS: PULSE 80
[2023-07-31] MEDS: Memantine Hydrochloride 10 MG Tablet PO (08:26)
[2023-07-31] MEDS: Metoprolol(XL)Succ 25 MG Tablet 12.5 MG PO (08:26)
[2023-07-31] MEDS: levETIRAcetam 1,000 MG Tablet 1000 MG PO (08:26)
[2023-07-31] MEDS: Flecainide 100 MG Tablet PO (08:26)
[2023-07-31] MEDS: DULoxetine Hcl 60 MG Capsule PO (08:27)
[2023-07-31] MEDS: Pantoprazole Sodium 40 MG Tablet PO (08:27)
[2023-07-31] MEDS: Allopurinol 100 MG Tablet PO (08:27)
[2023-07-31] MEDS: Iron Polysaccharide Complex 150 MG CAPSULE PO (08:28)
[2023-07-31] MEDS: Metaxalone 800 MG Tablet 400 MG PO (08:28)
[2023-07-31] MEDS: Senna/Docusate Sodium 1 Tablet PO (08:28)
[2023-07-31] MEDS: Vibegron 75 MG TABLET PO (08:28)
[2023-07-31] MEDS: Ascorbic Acid 500 MG Tablet PO (08:28)
[2023-07-31 12:37] VITALS: BP 149/72; PULSE 75; RESP 18; TEMP 36.6; O2SAT 97
== END 2023-07-31 12:47 | disposition home health service (06) | DRG 690 ==
PROVIDERS: Admitting Provider Family Medicine Geriatric Medicine; PCP Family Medicine; Visit Provider Family Medicine Geriatric Medicine
DX: N39.0 Urinary tract infection, site not specified (principal); I13.0 Hypertensive heart and chronic kidney disease with heart failure and stage 1 through stage 4 chronic kidney disease, or unspecified chronic kidney disease; K92.2 Gastrointestinal hemorrhage, unspecified; N18.4 Chronic kidney disease, stage 4 (severe); F01.50 Vascular dementia, unspecified severity, without behavioral disturbance, psychotic disturbance, mood disturbance, and anxiety; I50.9 Heart failure, unspecified; G40.909 Epilepsy, unspecified, not intractable, without status epilepticus; I48.0 Paroxysmal atrial fibrillation; B96.1 Klebsiella pneumoniae [K. pneumoniae] as the cause of diseases classified elsewhere; D50.9 Iron deficiency anemia, unspecified; F32.A Depression, unspecified; E03.9 Hypothyroidism, unspecified; E78.01 Familial hypercholesterolemia; J30.9 Allergic rhinitis, unspecified; E55.9 Vitamin D deficiency, unspecified; M62.838 Other muscle spasm; G43.909 Migraine, unspecified, not intractable, without status migrainosus; M10.9 Gout, unspecified; K21.9 Gastro-esophageal reflux disease without esophagitis; Z95.2 Presence of prosthetic heart valve; Z86.73 Personal history of transient ischemic attack (TIA), and cerebral infarction without residual deficits; G47.00 Insomnia, unspecified; B95.2 Enterococcus as the cause of diseases classified elsewhere; N32.81 Overactive bladder; G89.29 Other chronic pain; Z79.01 Long term (current) use of 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s; Z79.899 Other long term (current) drug therapy; Z79.890 Hormone replacement therapy; R31.0 Gross hematuria
CPT/HCPCS: 36415; 80048; 82306; 85014; 85018; 85025; 85610; 92507; 92523; 97110; 97116; 97124; 97162; 97166; 97530; 97535; 97802; J7030; A4216

== ENCOUNTER 2023-07-20 14:15 | Day surgery (SDC) | payer MEDICARE, OTHER, SELFPAY ==
[2023-07-20] MEDS: Lactated Ringers 1,000 ML 15 ML IV (14:42)
[2023-07-20 14:47] VITALS: BP 166/57; PULSE 65; RESP 18; TEMP 36.4; O2SAT 93; BMI 39.8
[2023-07-20 14:55] LABS: INR Fingerstick 2.8; Prothrombin Time Fingerstick 28.3 SEC (11.7-14.9)
--- NOTE | 2023-07-20 15:30 | EGD_PTH ---
PATIENT: CHANNING CANCHOLA LOC: EN U#:[id number] AGE/SX: 78/F ROOM: RE07/20/[address]: Dr. Kenyon Espinoza DO : 1945 BED: DIS: 07/20/2023 SPEC #: [id number] RECD: 07/21/23 10:51 STATUS: MEGAN RECeleste #: [id number] OLEKSANDR: 07/20/23 15:[address]: Kenyon Espinoza DEPT: SURGICAL PATHOLOGY RECD BY: Mabel Tatum ENTERED: 07/21/23 11:25 SP TYPE: EGD BIOPSY JOSE GUADALUPE DR: Dr. Kishore Ricci MD Tissues: Gastric mucous membrane Procedures: Surgery Specimen Level IV HEADER OPERATION: EGD with biopsy PRE-OP DIAGNOSIS: Acute lower GI bleeding TISSUE SUBMITTED: Gastric ulcer biopsy MICROSCOPIC DIAGNOSIS Gastric ulcer, biopsy: Mild gastritis. See microscopic description and comment. SHELDON/ 07/22/23 COMMENT The results of immunohistochemistry for Helicobacter pylori will be reported separately ([id number]). MICROSCOPIC DESCRIPTION Slides are reviewed. The specimen shows fragments of gastric mucosa with chronic inflammatory cell infiltrates in the lamina propria consisting of lymphocytes and plasma cells, consistent with mild chronic gastritis. GROSS DESCRIPTION Received in fixative is one container labeled with the patient's name and designated Gastric ulcer biopsy. The specimen consists of two irregular fragments of light colon soft tissue that in aggregate measure 0.8 x 0.5 x 0.2 cm. The specimen is totally submitted in one cassette. mr 07/21/2023 TC:3 CPT:17288
--- NOTE | 2023-07-20 15:30 | IMM_PTH ---
PATIENT: CHANNING CANCHOLA LOC: EN U#:[id number] AGE/SX: 78/F ROOM: RE07/20/[address]: Dr. Kenyon Espinoza DO : 1945 BED: DIS: 07/20/2023 SPEC #: [id number] RECD: 07/21/23 11:28 STATUS: MEGAN REQ #: [id number] OLEKSANDR: 07/20/23 15:[address]: Kenyon Espinoza DEPT: IMMUNOHISTOCHEMISTRY RECD BY: David Hunter ENTERED: 07/21/23 11:28 SP TYPE: IMMUNO OTHR DR: Dr. Kishore Ricci MD Tissues: Gastric mucous membrane Procedures: H Pylori (initial) PHYSICIAN & INSTITUTION [place] [id number] SPECIMEN INFORMATION: Tissue Source: Gastric ulcer biopsy Clinical Info: Acute lower GI bleeding Specimen Number: [id number] CPT code: 86405 METHODOLOGY: Deparaffinized sections of prefer/formalin-fixed tissue or PAP/DQ stained slides are incubated with monoclonal/polyclonal antibodies/oligonucleotide probes. Localization is made via biotin free immunoperoxidase method. Appropriate controls are performed and reacted as expected. Results on target cell population are indicated in the following table: RESULTS: ANTIBODY / CLONE RESULT H Pylori (polyclonal) negative These tests were developed and their performance characteristics determined by [facility]. They may not have been cleared or approved by the U.S. Food and Drug Administration. The FDA has determined that such clearance or approval is not necessary. The above immunohistochemical/dualISH markers are ordered and reviewed by the Pathologist. INTERPRETATION: Gastric ulcer, biopsy: Negative for Helicobacter pylori organisms. SHELDON/ 07/22/23
[2023-07-20 16:40] VITALS: BP 160/56; BP 166/57; PULSE 65; RESP 18; TEMP 36.2; O2SAT 97
[2023-07-20 16:45] VITALS: BP 144/55; BP 166/57; PULSE 63; RESP 16; O2SAT 97
--- NOTE | 2023-07-20 16:46 | OP.EGD_ITS ---
Patient Name: Shi Mckeon Procedure Date: 07/20/2023 4:16 PM Date of : 1945 Age: 78 Procedure: Upper GI endoscopy Indications: Acute post hemorrhagic anemia, Iron deficiency anemia Providers: Kenyon Espinoza DO Medicines: Monitored Anesthesia Care Patient Profile: This is an 78 year old female. Refer to note in patient chart for documentation of history and physical. Patient has symptoms. Complications: No immediate complications. Procedure: Pre-Anesthesia Assessment: - Prior to the procedure, a History and Physical was performed, and patient medications and allergies were reviewed. The patient is competent. The risks and benefits of the procedure and the sedation options and risks were discussed with the patient. All questions were answered and informed consent was obtained. Patient identification and proposed procedure were verified by the physician in the pre-procedure area. Mental Status Examination: alert and oriented. Airway Examination: normal oropharyngeal airway and neck mobility. Respiratory Examination: clear to auscultation. CV Examination: normal. Prophylactic Antibiotics: The patient does not require prophylactic antibiotics. Prior Anticoagulants: The patient has taken no 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 or antiplatelet agents. ASA Grade Assessment: III - A patient with severe systemic disease. After reviewing the risks and benefits, the patient was deemed in satisfactory condition to undergo the procedure. The anesthesia plan was to use monitored anesthesia care (MAC). Immediately prior to administration of medications, the patient was re-assessed for adequacy to receive sedatives. The heart rate, respiratory rate, oxygen saturations, blood pressure, adequacy of pulmonary ventilation, and response to care were monitored throughout the procedure. The physical status of the patient was re-assessed after the procedure. After obtaining informed consent, the endoscope was passed under direct vision. Throughout the procedure, the patient's blood pressure, pulse, and oxygen saturations were monitored continuously. The gastroscope was introduced through the mouth, and advanced to the second part of duodenum. The upper GI endoscopy was accomplished without difficulty. The patient tolerated the procedure well. Scope In: 4:28:20 PM Scope Out: 4:31:09 PM Total Procedure Duration Time 0 hours 2 minutes 49 seconds Findings: The examined esophagus was normal. Three non-bleeding linear gastric ulcers with pigmented material were found in the gastric body. The largest lesion was 6 mm in largest dimension. Biopsies were taken with a cold forceps for histology. Verification of patient identification for the specimen was done. Estimated blood loss was minimal. The second portion of the duodenum was normal. Impression: - Normal esophagus. - Non-bleeding gastric ulcers with pigmented material. Biopsied. - Normal second portion of the duodenum. Recommendation: - Return patient to referring hospital for ongoing care. - Resume regular diet. - Use sucralfate tablets 1 gram PO BID for 2 weeks. - Continue present medications. Procedure Code(s): --- Professional --- 85400, Esophagogastroduodenoscopy, flexible, transoral; with biopsy, single or multiple CPT copyright 2021 [employer]. All rights reserved. The codes documented in this report are preliminary and upon senior chemist review may be revised to meet current compliance requirements. Kenyon Espinoza DO 07/20/2023 4:45:53 PM This report has been signed electronically. Number of Addenda: 0 Note Initiated On: 07/20/2023 4:16 PM
--- NOTE | 2023-07-20 16:46 | OP.CCLET_ITS ---
07/20/2023 Kishore Ricci MD [address] [id number] Re : Upper GI endoscopy procedure for Shi Mckeon Dear Dr. Ricci This procedure was performed on Thursday, July 20, 2023. My impressions and recommendations are as follows: Impressions : - Normal esophagus. - Non-bleeding gastric ulcers with pigmented material. Biopsied. - Normal second portion of the duodenum. Recommendations : - Return patient to referring hospital for ongoing care. - Resume regular diet. - Use sucralfate tablets 1 gram PO BID for 2 weeks. - Continue present medications. My findings are described in the full procedure note, which is enclosed. If I can be of further assistance, please feel free to contact me at . Sincerely, Kenyon Friend, 07/20/2023 4:45:53 PM This report has been signed electronically.
[2023-07-20 16:50] VITALS: BP 149/57; BP 166/57; PULSE 63; RESP 18; TEMP 36.2; O2SAT 97
[2023-07-20 17:00] VITALS: BP 166/57
== END 2023-07-20 23:59 ==
LOC: EN 02-03 10:09
PROVIDERS: PCP Family Medicine; Referring Provider Family Medicine; Visit Provider Internal Medicine Gastroenterology
PROC: 0DJ08ZZ Inspection of Upper Intestinal Tract, Via Natural or Artificial Opening Endoscopic (ICD-10-PCS; CPT 43235; principal; 2023-07-20 15:25)
DX: K29.51 Unspecified chronic gastritis with bleeding (principal); N18.4 Chronic kidney disease, stage 4 (severe); F01.50 Vascular dementia, unspecified severity, without behavioral disturbance, psychotic disturbance, mood disturbance, and anxiety; I48.91 Unspecified atrial fibrillation; G40.909 Epilepsy, unspecified, not intractable, without status epilepticus; I25.10 Atherosclerotic heart disease of native coronary artery without angina pectoris; I12.9 Hypertensive chronic kidney disease with stage 1 through stage 4 chronic kidney disease, or unspecified chronic kidney disease; E03.9 Hypothyroidism, unspecified; N32.81 Overactive bladder; J45.909 Unspecified asthma, uncomplicated; R53.81 Other malaise; F32.A Depression, unspecified; M10.9 Gout, unspecified; K21.9 Gastro-esophageal reflux disease without esophagitis; E21.3 Hyperparathyroidism, unspecified; I25.2 Old myocardial infarction; Z95.2 Presence of prosthetic heart valve; Z79.01 Long term (current) use of 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s; Z86.73 Personal history of transient ischemic attack (TIA), and cerebral infarction without residual deficits
CPT/HCPCS: 43239; 36416; 85610; 88305; 88342; J7120; J2405

== ENCOUNTER 2023-07-22 06:51 | Day surgery (SDC) | payer MEDICARE, OTHER, SELFPAY ==
[2023-07-22] VITALS (7 sets, daily range): BP systolic 106–143; BP diastolic 40–52; PULSE 62–98; RESP 16–18; TEMP 36.6; O2SAT 88–100; BMI 403.7
[2023-07-22] MEDS: Lactated Ringers 1,000 ML 15 ML IV (07:17)
--- NOTE | 2023-07-22 08:10 | PCM.OPRPT ---
Report of Operation Date of Procedure: 07/22/23 Pre-Operative Diagnosis: Gross hematuria Post-Operative Diagnosis: Same Surgery/Procedure Performed:: Cystoscopy Surgeon: Katelin Cordoba Type of Anesthesia: MAC Specimen's removed: None Description of Procedure: The patient is an 78-year-old female who has been supratherapeutic on her anticoagulation therapy and has developed intermittent gross hematuria. She now presents for cystoscopic evaluation. Informed consent was obtained. The patient was taken to the operating room and placed on the operating room table. Anesthesia monitored the head, neck, airway, IV access and vital signs throughout the case. Once anesthesia was appropriately administered, the patient was placed into dorsolithotomy position and was prepped and draped in usual sterile fashion. The cystoscope was inserted through the urethra under direct visualization into the urinary bladder. No areas of erythema, ulceration, mass or foreign body were identified. The patient's bladder was then emptied and the cystoscope was removed. She was awakened and taken to the recovery room in good condition. There were no complications during this procedure. Grafts/Implants Used: None Complications None Admit VTE Documentation VTE Present on Admission: Yes VTE Mechan Device Prophylaxis: SCD's VTE Pharm Prophylaxis ordered?: Yes
--- NOTE | 2023-07-22 08:11 | DCINST_ITS ---
Discharge Instructions Diet Discharge Diet: No restrictions Activity Discharge Activity: Return to Normal Activity Dressing / Incision Call your doctor if you observe: Fever of 101 or Higher, Inability to urinate and Inability to have a bowel movement Follow Up Care Please Follow Up With: Katelin Cordoba MD When: Follow-up in the office after discharge from TCU. Test Results: Test results from this visit will be discussed in further detail at your follow- up appointment, if applicable. Discharge Plan Admission Attending Provider: Katelin Cordoba Primary Care Provider: Kishore Ricci Discharge Orders/Prescriptions Prescriptions: Continued allopurinol 100 mg tablet 100 mg PO DAILY Qty: 90 levothyroxine 100 mcg tablet 100 mcg PO DAILY Qty: 90 levetiracetam [Keppra] 1,000 mg tablet 1,000 mg PO BID oxcarbazepine 150 mg tablet 150 mg PO BID hydrocodone-acetaminophen 5-325 mg tablet 1 tab PO BID PRN (Reason: PAIN ) Patient Comments: PT STATES TAKES NEEDED (03-18-23) metoprolol succinate 25 mg tablet extended release 24 hr 12.5 mg PO DAILY Qty: 90 Probiotic Acidophilus 250 million cell capsule 1,000 mmu cells PO DAILY amlodipine 10 mg tablet 5 mg PO DAILY furosemide [Lasix] 40 mg tablet 40 mg PO DAILY Qty: 30 11RF Rx Instructions: Take one a day for 5 days then as directed Gemtesa 75 mg tablet 75 mg PO DAILY memantine 10 mg tablet 10 mg PO BID nortriptyline 50 mg capsule 100 mg PO 2000 metaxalone 400 mg tablet 400 mg PO BID duloxetine 60 mg capsule,delayed release(DR/EC) 60 mg PO DAILY nitroglycerin [Nitrostat] 0.4 mg tablet, sublingual 0.4 mg sublingual Q5M PRN (Reason: CHEST PAIN ) Rx Instructions: do not exceed 3 doses per episode cholecalciferol (vitamin D3) [D3-2000] 50 mcg (2,000 unit) capsule 2,000 unit PO DAILY omeprazole 40 mg capsule,delayed release(DR/EC) 40 mg PO DAILY fluticasone propionate 220 mcg/actuation HFA aerosol inhaler 2 inh inhalation BID warfarin [Jantoven] 6 mg Tablet 6 mg PO DAILY@1700 30 Days Qty: 30 1RF Hold Instructions: Hold it,pt on lower dose of warfarin Protocol: Dose Management Condition: Wednesday Dose/Route: 2 mg Instruction: 0.5 x 4 mg tablets Condition: Wednesday Dose/Route: 4 mg Instruction: 1 x 4 mg tablet Condition: Wednesday Dose/Route: 4 mg Instruction: 1 x 4 mg tablet Condition: Wednesday Dose/Route: 4 mg Instruction: 1 x 4 mg tablet Condition: Dose/Route: 4 mg Instruction: 1 x 4 mg tablet Condition: Wednesday Dose/Route: 4 mg Instruction: 1 x 4 mg tablet Condition: Wednesday Dose/Route: 4 mg Instruction: 1 x 4 mg tablet Protocol Text: Adjustment Start Date: Wednesday07/13/23 INR Value: 2.7 INR Date: 07/13/23 Recheck Date: 07/20/23 Patient Comments: family states shes supposed to take none on 07/07/23 and 07/08/23 and start back on the depending on INR Rx Instructions: Keep INR between 2.5-3.5, average 3.0. Hold if INR more than 3.5 rosuvastatin 40 mg tablet 40 mg PO QHS 30 Days Qty: 30 4RF mirtazapine 7.5 mg tablet 3.75 - 7.5 mg PO QHS PRN (Reason: antidepressant) warfarin 4 mg tablet 4 mg PO DAILY Qty: 7 0RF Protocol: Dose Management Condition: Wednesday Dose/Route: 2 mg Instruction: 0.5 x 4 mg tablets Condition: Wednesday Dose/Route: 4 mg Instruction: 1 x 4 mg tablet Condition: Wednesday Dose/Route: 4 mg Instruction: 1 x 4 mg tablet Condition: Wednesday Dose/Route: 4 mg Instruction: 1 x 4 mg tablet Condition: Dose/Route: 4 mg Instruction: 1 x 4 mg tablet Condition: Wednesday Dose/Route: 4 mg Instruction: 1 x 4 mg tablet Condition: Wednesday Dose/Route: 4 mg Instruction: 1 x 4 mg tablet Protocol Text: Adjustment Start Date: Wednesday07/13/23 INR Value: 2.7 INR Date: 07/13/23 Recheck Date: 07/20/23 Patient Comments: family states shes supposed to take none on 07/07/23 and 07/08/23 and start back on the depending on INR Rx Instructions: Start from 07/12/23. INR Tomorrow am ferrous fumarate 324 mg (106 mg iron) tablet 324 mg PO DAILY 30 Days Qty: 30 2RF ascorbic acid (vitamin C) 500 mg tablet 500 mg PO BID Qty: 60 2RF ondansetron HCl 4 mg tablet 4 mg PO TID PRN (Reason: nausea and vomiting) Nurtec ODT 75 mg tablet,disintegrating 75 mg PO QODAY flecainide 100 mg tablet 100 mg PO BID Referrals / Follow Up: Kishore Ricci MD [Primary Care Provider] - Disposition Disposition (needs filled in before D/C Order can be placed): Home, Self Care
[2023-07-22] MEDS: Cefazolin 2 GM in 0.9% Normal Saline (100mL Bag) 100 ML IV (08:13)
== END 2023-07-22 09:04 | disposition home or self-care (01) ==
LOC: SDC 06:53 → AC 06:53
PROVIDERS: PCP Family Medicine; Referring Provider Urology; Visit Provider Urology
PROC: 0TBB8ZX Excision of Bladder, Via Natural or Artificial Opening Endoscopic, Diagnostic (ICD-10-PCS; CPT 52000; principal; 2023-07-22 08:10)
DX: R31.0 Gross hematuria (principal); N18.4 Chronic kidney disease, stage 4 (severe); I48.91 Unspecified atrial fibrillation; Z79.01 Long term (current) use of 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s; D68.9 Coagulation defect, unspecified; R06.09 Other forms of dyspnea; Z95.2 Presence of prosthetic heart valve; I12.9 Hypertensive chronic kidney disease with stage 1 through stage 4 chronic kidney disease, or unspecified chronic kidney disease; N32.81 Overactive bladder; Z87.440 Personal history of urinary (tract) infections; R33.8 Other retention of urine
CPT/HCPCS: 52000; J7120; J2405

== ENCOUNTER 2023-08-23 18:31 | Outpatient (CLI) | payer MEDICARE, OTHER, SELFPAY ==
[2023-08-23 18:44] LABS: Absolute Lymphocyte Count 0.77 X10^3/uL (0.83-4.51); Absolute Neutrophil Count 6.9 X10^3/uL (2.0-7.7); Basophil# 0.05 X10^3/uL; Basophil% 0.6 % (0-1); Eosinophil# 0.36 X10^3/uL; Eosinophils% 4.2 % (0-5); Hematocrit 33.1 % (37-47); Lymphocyte # 0.77 X10^3/ul (0.83-4.51); Lymphocyte % 8.9 % (19-41); Mean Corp Hgb Conc 30.2 g/dL (32-36); Mean Corpuscular Hgb 28.6 pg (27.0-32.0); Mean Corpuscular Volume 94.6 fL (81-99); Monocyte# 0.57 X10^3/uL; Monocyte% 6.6 % (0-10); NRBC Flagged by Analyzer 0 % (0-5); Neutrophil # 6.85 X10^3/uL (2.7-7.7); Neutrophil % 79.5 % (47-70); Platelet Count 278 K/mm3 (150-450); RBC Distribution Width CV 13.2 % (11.6-14.6); RBC Distribution Width SD 45.3 fl (35.1-43.9); White Blood Count 8.6 K/mm3 (4.4-11.0)
[2023-08-23 19:05] LABS: ALB/GLOB Ratio 1.1 RATIO (0.9-2.4); AST(SGOT) 20 U/L (15-37); Alanine Aminotransfer ALT/SGPT 23 U/L (13-56); Albumin, Serum 3.4 g/dL (3.2-5.0); Alkaline Phosphatase 88 U/L (45-117); Anion Gap 4 (5-15); BUN 27 mg/dL (7-18); Calcium,Total 9.2 mg/dL (8.5-10.1); Chloride 108 mmol/L (98-107); Creatinine, Serum 1.42 mg/dL (0.55-1.02); EST Glomerular Filtration Rate 38 mL/min (>60); Est Glom Filt Rate - Afr Amer 46 mL/min (>60); Globulin 3.2 g/dL (2.2-4.2); Glucose 90 mg/dL (74-106); LDH 365 U/L (84-246); Potassium 3.9 mmol/L (3.5-5.1); Protein, Total 6.6 g/dL (6.4-8.2); Sodium Level 137 mmol/L (136-145)
[2023-08-29 16:07] LABS: Chromogranin A 608.4 ng/mL (0.0-101.8); Serotonin, Serum 10 ng/mL (8-217)
== END 2023-08-23 23:59 | disposition home or self-care (01) ==
PROVIDERS: PCP Family Medicine; Referring Provider Internal Medicine Medical Oncology; Visit Provider Internal Medicine Medical Oncology
DX: D50.9 Iron deficiency anemia, unspecified (principal); N50.9 Disorder of male genital organs, unspecified
CPT/HCPCS: 80053; 83615; 84260; 85025; 86316

== ENCOUNTER → 2023-09-01 | Outpatient (CLI) | payer MEDICARE, OTHER, SELFPAY ==
[2023-09-01 10:13] LABS: International Normalized Ratio 3.5; Prothrombin Time (Protime)PT. 34.8 SECONDS (11.7-14.9)
== END | disposition home or self-care (01) ==
LOC: LAB 09:06
PROVIDERS: PCP Family Medicine; Referring Provider Internal Medicine Cardiovascular Disease; Visit Provider Internal Medicine Cardiovascular Disease
DX: F01.50 Vascular dementia, unspecified severity, without behavioral disturbance, psychotic disturbance, mood disturbance, and anxiety (principal); Z95.2 Presence of prosthetic heart valve; Z79.01 Long term (current) use of 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s
CPT/HCPCS: 36415; 85610

== ENCOUNTER → 2023-09-08 | Outpatient (CLI) | payer MEDICARE, OTHER, SELFPAY ==
[2023-09-08 10:54] LABS: International Normalized Ratio 3.6; Prothrombin Time (Protime)PT. 35.6 SECONDS (11.7-14.9)
== END | disposition home or self-care (01) ==
LOC: LAB 06:54
PROVIDERS: PCP Family Medicine; Referring Provider Internal Medicine Cardiovascular Disease; Visit Provider Internal Medicine Cardiovascular Disease
DX: F01.50 Vascular dementia, unspecified severity, without behavioral disturbance, psychotic disturbance, mood disturbance, and anxiety (principal); Z95.2 Presence of prosthetic heart valve; Z79.01 Long term (current) use of 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s
CPT/HCPCS: 36415; 85610

== ENCOUNTER → 2023-09-15 | Outpatient (CLI) | payer MEDICARE, OTHER, SELFPAY ==
[2023-09-15 11:58] LABS: International Normalized Ratio 3.7; Prothrombin Time (Protime)PT. 36.7 SECONDS (11.7-14.9)
== END | disposition home or self-care (01) ==
LOC: LAB 11:15
PROVIDERS: PCP Family Medicine; Visit Provider Internal Medicine Cardiovascular Disease
DX: F01.50 Vascular dementia, unspecified severity, without behavioral disturbance, psychotic disturbance, mood disturbance, and anxiety (principal); Z95.2 Presence of prosthetic heart valve; Z79.01 Long term (current) use of 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s
CPT/HCPCS: 36415; 85610

== ENCOUNTER → 2023-09-27 | Outpatient (CLI) | payer MEDICARE, OTHER, SELFPAY ==
--- NOTE | 2023-09-27 14:20 | RAD_ITS ---
STUDY: X-RAY - LUMBAR SPINE REASON FOR EXAM: Female, 78 years old. FALL TECHNIQUE: 2 view(s) of the lumbar spine were obtained. COMPARISON: 08/16/2020 FINDINGS: Normal lumbar lordosis. Moderate levoscoliosis centered at L2. There is a normal alignment of the vertebrae. There is multilevel endplate spondylosis of the lumbar vertebrae. There is multi-level degenerative disc disease with multi-level disc space narrowing. There is multilevel facet hypertrophy. The soft tissue structures are unremarkable. RAD/Lumbar Spine 2 or 3 Views IMPRESSION: Moderate levoscoliosis with degenerative disc disease. MRI may be useful. Electronically Signed: Umesh Barrera MD at 14:54 EDT ,
== END | disposition home or self-care (01) ==
LOC: MTRAD 14:18
PROVIDERS: PCP Family Medicine; Referring Provider Anesthesiology Pain Medicine; Visit Provider Anesthesiology Pain Medicine
DX: M51.36 Other intervertebral disc degeneration, lumbar region (principal)
CPT/HCPCS: 72100

== ENCOUNTER → 2023-09-29 | Outpatient (CLI) | payer MEDICARE, OTHER, SELFPAY ==
[2023-09-29 10:56] LABS: International Normalized Ratio 2.1; Prothrombin Time (Protime)PT. 23.1 SECONDS (11.7-14.9)
== END | disposition home or self-care (01) ==
LOC: LAB 09:03
PROVIDERS: Referring Provider Internal Medicine Cardiovascular Disease; Visit Provider Internal Medicine Cardiovascular Disease
DX: F01.50 Vascular dementia, unspecified severity, without behavioral disturbance, psychotic disturbance, mood disturbance, and anxiety (principal); Z95.2 Presence of prosthetic heart valve; Z79.01 Long term (current) use of 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s
CPT/HCPCS: 36415; 85610

== ENCOUNTER → 2023-10-08 | Outpatient (CLI) | payer MEDICARE, OTHER, SELFPAY ==
[2023-10-08 15:14] LABS: BNP,B-Type NATRIURETIC PEPTIDE 87.3 pg/mL (0-100)
== END | disposition home or self-care (01) ==
LOC: LAB 14:19
PROVIDERS: PCP Family Medicine; Referring Provider Physician Assistant Medical; Visit Provider Physician Assistant Medical
DX: R06.02 Shortness of breath (principal)
CPT/HCPCS: 36415; 83880

== ENCOUNTER → 2023-10-13 | Outpatient (CLI) | payer MEDICARE, OTHER, SELFPAY ==
[2023-10-13 10:36] LABS: International Normalized Ratio 1.7; Prothrombin Time (Protime)PT. 19.7 SECONDS (11.7-14.9)
== END | disposition home or self-care (01) ==
LOC: LAB 07:53
PROVIDERS: PCP Family Medicine; Visit Provider Internal Medicine Cardiovascular Disease
DX: F01.50 Vascular dementia, unspecified severity, without behavioral disturbance, psychotic disturbance, mood disturbance, and anxiety (principal); Z95.2 Presence of prosthetic heart valve; Z79.01 Long term (current) use of 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s
CPT/HCPCS: 36415; 85610

== ENCOUNTER → 2023-10-15 | Outpatient (CLI) | payer MEDICARE, OTHER, SELFPAY ==
[2023-10-15 10:07] LABS: International Normalized Ratio 2.3
== END | disposition home or self-care (01) ==
LOC: LAB 09:08
PROVIDERS: PCP Family Medicine; Visit Provider Internal Medicine Cardiovascular Disease
DX: Z95.2 Presence of prosthetic heart valve (principal); Z79.01 Long term (current) use of 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s
CPT/HCPCS: 36415; 85610

== ENCOUNTER → 2023-10-21 | Outpatient (CLI) | payer MEDICARE, OTHER, SELFPAY ==
[2023-10-21 17:56] LABS: Absolute Lymphocyte Count 0.87 X10^3/uL (0.83-4.51); Absolute Neutrophil Count 8.3 X10^3/uL (2.0-7.7); Basophil# 0.04 X10^3/uL; Basophil% 0.4 % (0-1); Hematocrit 33.7 % (37-47); Hemoglobin 10.5 g/dL (12.0-15.0); Lymphocyte # 0.87 X10^3/ul (0.83-4.51); Lymphocyte % 8.6 % (19-41); Mean Corp Hgb Conc 31.2 g/dL (32-36); Mean Corpuscular Hgb 27.9 pg (27.0-32.0); Mean Corpuscular Volume 89.4 fL (81-99); Mean Platelet Vol. 10.1 fl (6.2-12.0); Monocyte% 6.9 % (0-10); NRBC Flagged by Analyzer 0 % (0-5); Neutrophil # 8.33 X10^3/uL (2.7-7.7); Neutrophil % 81.8 % (47-70); Platelet Count 249 K/mm3 (150-450); RBC Distribution Width SD 45.2 fl (35.1-43.9); Red Blood Count 3.77 M/mm3 (4.2-5.4); White Blood Count 10.2 K/mm3 (4.4-11.0)
[2023-10-21 18:26] LABS: Anion Gap 6 (5-15); BUN 30 mg/dL (7-18); BUN/Creat Ratio 15.5 RATIO (10-20); Calcium,Total 9.1 mg/dL (8.5-10.1); Chloride 102 mmol/L (98-107); Cholesterol 157 mg/dL (200); Creatinine, Serum 1.94 mg/dL (0.55-1.02); EST Glomerular Filtration Rate 26 mL/min (>60); Est Glom Filt Rate - Afr Amer 32 mL/min (>60); Glucose 89 mg/dL (74-106); High Density Lipoprotein 82 mg/dL; Potassium 4.7 mmol/L (3.5-5.1); Sodium Level 133 mmol/L (136-145); Thyroid Stim Hormone (TSH) 2.88 uIU/mL (0.358-3.74); Triglycerides 115 mg/dL; Very Low Density Lipoprotein 23 mg/dL (5-40)
== END | disposition home or self-care (01) ==
LOC: MFPLAB 15:30
PROVIDERS: PCP Family Medicine; Visit Provider Family Medicine
DX: E78.5 Hyperlipidemia, unspecified (principal); R42 Dizziness and giddiness; R53.83 Other fatigue
CPT/HCPCS: 36415; 80048; 80061; 84443; 85025

== ENCOUNTER → 2023-10-22 | Outpatient (CLI) | payer MEDICARE, OTHER, SELFPAY ==
[2023-10-22 10:41] LABS: International Normalized Ratio 3.1; Prothrombin Time (Protime)PT. 31.3 SECONDS (11.7-14.9)
== END | disposition home or self-care (01) ==
LOC: LAB 08:54
PROVIDERS: PCP Family Medicine; Visit Provider Internal Medicine Cardiovascular Disease
DX: F01.50 Vascular dementia, unspecified severity, without behavioral disturbance, psychotic disturbance, mood disturbance, and anxiety (principal); Z95.2 Presence of prosthetic heart valve; Z79.01 Long term (current) use of 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s
CPT/HCPCS: 36415; 85610

== ENCOUNTER → 2023-11-05 | Outpatient (CLI) | payer MEDICARE, OTHER, SELFPAY ==
[2023-11-05 09:59] LABS: Prothrombin Time (Protime)PT. 30.8 SECONDS (11.7-14.9)
== END | disposition home or self-care (01) ==
LOC: LAB 07:22
PROVIDERS: PCP Family Medicine; Visit Provider Internal Medicine Cardiovascular Disease
DX: Z95.2 Presence of prosthetic heart valve (principal); Z79.01 Long term (current) use of 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s
CPT/HCPCS: 36415; 85610

== ENCOUNTER → 2023-11-19 | Outpatient (CLI) | payer MEDICARE, OTHER, SELFPAY ==
[2023-11-19 10:36] LABS: International Normalized Ratio 2.7; Prothrombin Time (Protime)PT. 28.2 SECONDS (11.7-14.9)
== END | disposition home or self-care (01) ==
LOC: LAB 08:20
PROVIDERS: PCP Family Medicine; Visit Provider Internal Medicine Cardiovascular Disease
DX: Z79.01 Long term (current) use of 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s (principal)
CPT/HCPCS: 85610

== ENCOUNTER → 2023-12-10 | Outpatient (CLI) | payer MEDICARE, OTHER, SELFPAY ==
[2023-12-10 11:04] LABS: International Normalized Ratio 2.8; Prothrombin Time (Protime)PT. 28.9 SECONDS (11.7-14.9)
== END | disposition home or self-care (01) ==
LOC: LAB 09:50
PROVIDERS: PCP Family Medicine; Visit Provider Internal Medicine Cardiovascular Disease
DX: Z95.2 Presence of prosthetic heart valve (principal); Z79.01 Long term (current) use of 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s
CPT/HCPCS: 36415; 85610

== ENCOUNTER → 2023-12-15 | Outpatient (CLI) | payer MEDICARE, OTHER, SELFPAY ==
[2023-12-15 16:00] LABS: Absolute Neutrophil Count 6.7 X10^3/uL (2.0-7.7); Basophil# 0.02 X10^3/uL; Basophil% 0.2 % (0-1); Eosinophil# 0.27 X10^3/uL; Eosinophils% 3.3 % (0-5); Hematocrit 31.5 % (37-47); Hemoglobin 10.1 g/dL (12.0-15.0); Lymphocyte % 7.3 % (19-41); Mean Corp Hgb Conc 32.1 g/dL (32-36); Mean Corpuscular Hgb 29.1 pg (27.0-32.0); Mean Corpuscular Volume 90.8 fL (81-99); Mean Platelet Vol. 9.9 fl (6.2-12.0); Monocyte# 0.54 X10^3/uL; Monocyte% 6.6 % (0-10); NRBC Flagged by Analyzer 0 % (0-5); Neutrophil # 6.72 X10^3/uL (2.7-7.7); Neutrophil % 82.2 % (47-70); POSITIVE DIFFERENTIAL YES; Platelet Count 222 K/mm3 (150-450); RBC Distribution Width CV 15.2 % (11.6-14.6); RBC Distribution Width SD 50.4 fl (35.1-43.9); Red Blood Count 3.47 M/mm3 (4.2-5.4); White Blood Count 8.2 K/mm3 (4.4-11.0)
[2023-12-15 16:37] LABS: ALB/GLOB Ratio 1.1 RATIO (0.9-2.4); AST(SGOT) 30 U/L (15-37); Alanine Aminotransfer ALT/SGPT 42 U/L (13-56); Albumin, Serum 3.5 g/dL (3.2-5.0); Alkaline Phosphatase 106 U/L (45-117); Anion Gap 5 (5-15); BUN 23 mg/dL (7-18); BUN/Creat Ratio 14.1 RATIO (10-20); Calcium,Total 9.5 mg/dL (8.5-10.1); Chloride 109 mmol/L (98-107); Creatinine, Serum 1.63 mg/dL (0.55-1.02); EST Glomerular Filtration Rate 32 mL/min (>60); Est Glom Filt Rate - Afr Amer 39 mL/min (>60); Globulin 3.2 g/dL (2.2-4.2); Glucose 103 mg/dL (74-106); Potassium 3.9 mmol/L (3.5-5.1); Protein, Total 6.7 g/dL (6.4-8.2); Sodium Level 139 mmol/L (136-145)
== END | disposition home or self-care (01) ==
PROVIDERS: Student in an Organized Health Care Education/Training Program; PCP Family Medicine; Referring Provider Family Medicine; Visit Provider Family Medicine
DX: N18.4 Chronic kidney disease, stage 4 (severe) (principal)
CPT/HCPCS: 36415; 80053; 85025

== ENCOUNTER 2023-12-25 20:19 | Inpatient (IN) | payer MEDICARE, OTHER, SELFPAY ==
[2023-12-25 20:17] VITALS: BMI 40.4
--- NOTE | 2023-12-25 20:19 | HP.PCM.HOS_ITS ---
[facility] - General General Date of Admission: 12/25/23 Date of Service: 12/25/23 Chief Complaint: Patient Found Down at Home with Dark Vomit. HPI Narrative CHANNING CANCHOLA, is a 78 F with a past medical history of essential hypertension, hyperlipidemia, hypothyroidism, morbid obesity; with BMI of 40.4 this admission, ELIDA, history of asthma, history of CVA (06/2023), history of seizures; on Keppra, chronic dementia, depression, CAD; s/p NV, history of mechanical AVR and replacement of ascending aorta; on Coumadin, history of atrial fibrillation; on Flecainide, history of CHF, history of ischemic colitis, CKD; stage IV with baseline creatinine of ~1.8 mg/dL, overactive bladder; on Gemtesa, history of migraine headaches, gout, OA, listed allergy to Sulfa and Celecoxib (hives and SOB), listed allergy to gemfibrozil (nausea & myalgias), chronic anemia, GERD; with history of PUD (already on Protonix and Sucralfate) previously evaluated by Dr. Espinoza of gastroenterology who was transferred from [facility] after she was found down at home by her family with patient then having dark vomitus suspected for hematemesis with a stable hemoglobin of 9.9 g/dL, a CK of 1,200 U/L and an INR of 3 present on admission so arrangements were made to transfer her here so she could be evaluated by Dr. Espinoza of gastroenterology with suspected UGIB with an Adverse Drug Reaction to Coumadin complicated by mild rhabdomyolysis with her CT scan of the abdomen and pelvis unremarkable except for a 'fluid-filled esophagus'. She was then volume resuscitated and treated with IV Protonix with patient then transferred here for further treatment. The patient has a poor recollection of the details of recent events but she admits to laying her garage floor all night after she fell while looking for her cat and she also endorses a history of severe GERD with frequent heartburn and nausea in spite of her Protonix and Carafate. There is no report of fever, chills, diarrhea, constipation, abdominal pain, chest pain or SOB but she does admit to pain in her low back that started after her prolonged time down on the ground. She was then diagnosed with suspected UGIB due to likely hematemesis while on Coumadin in the setting of poorly-controlled GERD that is failing near maximal medical treatment and she was then admitted to the PCU for ongoing care for a stay that is expected to extend beyond 2 midnights. [facility] Medical History Depression GI bleed Atrial fibrillation Balance problem Thyroid disease Arthritis History of ulceration History of edema History of echocardiogram History of stress test Cardiology follow-up encounter Gross hematuria Anemia Hypothyroidism Asthma Sleep apnea Congestive heart failure (CHF) Myocardial infarct Migraines Stroke/cerebrovascular accident CVA (cerebral vascular accident) Depression Chronic pain Kidney stones GERD (gastroesophageal reflux disease) GI bleed Atrial fibrillation Hypertension Seizures Dementia Acute UTI Hyperparathyroidism Stage 4 chronic kidney disease Thoracic aortic aneurysm (TAA) Aortic stenosis with bicuspid valve Near syncope assisted current use of 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 Paroxysmal atrial fibrillation Essential hypertension Migraines Head injuries Ascending aortic aneurysm Urine retention Seizure disorder Physical debility History of gout Hyperuricemia Spinal stenosis Hypothyroidism History of venous thrombosis and embolism Esophageal reflux Home Medications ?Medication ?Instructions ?Recorded ?Last Taken ?Type allopurinol 100 mg tablet 100 mg PO DAILY GOUT #90 tabs 02/22/19 07/07/23 History levothyroxine 100 mcg tablet 100 mcg PO DAILY THYROID #90 tabs 02/22/19 07/07/23 History levetiracetam 1,000 mg tablet 1,000 mg PO BID EPILEPSY 06/06/21 07/07/23 History (Keppra) oxcarbazepine 150 mg tablet 150 mg PO BID EPILESPSY 09/12/21 07/07/23 History metoprolol succinate 25 mg 12.5 mg PO DAILY HEART #90 tabs 11/25/21 07/07/23 History tablet,extended release 24 hr memantine 10 mg tablet 10 mg PO BID MEMORY 02/22/23 07/07/23 History vibegron 75 mg tablet (Gemtesa) 75 mg PO DAILY OVERACTIVE BLADDER 02/22/23 07/07/23 History duloxetine 60 mg capsule,delayed 60 mg PO DAILY DEPRESSION 03/17/23 07/07/23 History release metaxalone 400 mg tablet 400 mg PO BID MUSCLE SPASMS/PAIN 03/17/23 07/07/23 History nortriptyline 50 mg capsule 100 mg PO 2000 DEPRESSION 03/17/23 07/07/23 History cholecalciferol (vitamin D3) 50 2,000 unit PO DAILY vitamin 06/20/23 07/07/23 History mcg (2,000 unit) capsule (D3-2000) omeprazole 40 mg capsule,delayed 40 mg PO DAILY reflux 06/20/23 07/07/23 History release rosuvastatin 40 mg tablet 40 mg PO QHS cholesterol 1 month 06/22/23 07/06/23 Rx #30 tabs ascorbic acid (vitamin C) 500 mg 500 mg PO BID vitamin C #60 tabs 07/11/23 Unknown Rx tablet polysaccharide iron complex 150 mg 150 mg PO DAILY 30 days #30 caps 07/27/23 Unknown Rx iron capsule (Ferrex) sucralfate 1 gram tablet 1 g PO 0700,2200 30 days #60 tabs 07/27/23 Unknown Rx nitroglycerin 0.4 mg sublingual 0.4 mg sublingual Q5M PRN CHEST 10/08/23 Unknown Rx tablet (Nitrostat) PAIN #25 tabs topiramate 50 mg tablet (Topamax) 50 mg PO QHS migraines 10/08/23 Unknown History furosemide 40 mg tablet 40 mg PO DAILY PRN edema #90 tabs 10/27/23 Unknown Rx ondansetron HCl 4 mg tablet 4 mg PO TID PRN nausea and 12/21/23 Unknown Rx vomiting #20 tabs flecainide 100 mg tablet 50 mg PO BID heart rate 12/25/23 Unknown History hydrocodone-acetaminophen 5-325mg 1 tab PO Q12H pain 12/25/23 Unknown History 5mg-325mg multivitamin (Daily Multi-Vitamin 1 tab PO DAILY supplement 12/25/23 Unknown History tablet) warfarin 4 mg tablet 4 mg PO SUMOTUTHFRSA BLOOD THINNER 12/25/23 Unknown History warfarin 6 mg tablet (Jantoven) 6 mg PO WE 12/25/23 Unknown History Allergy/AdvReac Type Severity Reaction Status Date / Time celecoxib (From Celebrex) Allergy Severe Hives, Verified 10/08/23 13:35 swelling, difficulty breathing Sulfa (Sulfonamide Allergy Severe Hives, Verified 10/08/23 13:35 Antibiotics) swelling, difficulty breathing gemfibrozil AdvReac Intermediate Nausea,myal Verified 10/08/23 13:35 gias Family History Mother CVA (cerebral vascular accident) Breast cancer Hypertension CAD (coronary artery disease) Father Hypertension CAD (coronary artery disease) Surgical History History of esophagogastroduodenoscopy (EGD) History of appendectomy History of tilt table evaluation (05/21/16) History of thumb surgery (2004) History of lumpectomy (2009) History of bilateral breast reduction surgery (2008) History of total abdominal hysterectomy (1974) H/O chest tube placement (05/07/01) History of left heart catheterization (12/07/15) Hx of ascending aorta replacement (04/05/01) History of loop recorder Hx of aortic valve replacement, mechanical (04/05/01) History of open reduction and internal fixation (ORIF) procedure (11/30/19) Fracture of ankle, bimalleolar, left, closed Social History household members: [facility] Smoking Status: Never smoker alcohol intake: never substance use type: does not use ROS ROS Narrative Review of Systems: Constitutional: Patient denies fever or chills. Eyes: Patient denies changes in vision or discharge from eyes. ENT: Patient admits to chronically poor balance but she denies runny nose, sore throat or ear pain. Resp: Patient denies SOB or cough. CV: Patient denies chest pain, palpitations or heart racing. GI: Patient admits to abdominal pain with nausea and dark colored emesis. : Patient denies dysuria or hematuria. MSK: Patient admits to back pain. Skin: Patient denies rash, abscess or jaundice. Psych: Patient denies symptoms of uncontrolled depression or anxiety. Neuro: Patient denies headache, paresthesias or focal neurologic deficits. Hematology: Patient admits to dark colored vomitus. Endocrinology: Patient denies polyuria, polydipsia or polyphagia. 14 point ROS otherwise negative except for positives noted above in HPI. Physical Exam Const alert, oriented x3 and no apparent distress Constitutional Narrative: Morbidly obese with acutely ill appearance. General Appearance: cooperative Orientation / Consciousness: lethargic HEENT normocephalic, head/scalp atraumatic and hearing grossly normal bilaterally HEENT Narrative: Mucous membranes dry. Eyes PERRL and EOMs intact bilaterally Neck no lymphadenopathy and supple Resp normal respiratory effort, no retractions, no use of accessory muscles and clear to auscultation bilaterally Cardio Cardio Narrative: Irregularly irregular @ ~100 bpm. GI normal to inspection, nondistended, normoactive bowel sounds, soft to palpation, non-tender and non-distended GI Narrative: Morbidly obese. Extremity normal to inspection Skin Skin Narrative: Patient has no evidence of rash, abscess or jaundice. Neuro oriented x3, CN's II-XII intact bilaterally, moves all extremities and no focal motor deficits Sensorium / Orientation: awake, alert, oriented to person, oriented to place and oriented to time Speech: speech normal Psych affect normal Results Medical Records Data Attestation: I reviewed the patient's medical records Lab / Micro Data Attestation: I reviewed the patient's lab results. 12/26/23 06:11 12/26/23 06:11 Assessment & Plan Assessment/Plan (1) Hematemesis/vomiting blood: QUALIFIERS: Nausea presence: with nausea Qualified Code(s): K92.0 - Hematemesis (2) Adverse drug reaction: QUALIFIERS: Encounter type: initial encounter Qualified Code(s): T50.905A - Adverse effect of unspecified drugs, medicaments and biological substances, initial encounter (3) History of peptic ulcer disease: (4) Morbid obesity with BMI of 40.0-44.9, adult: (5) Vascular dementia: QUALIFIERS: Dementia behavioral or psychological symptom: without behavioral, psychotic, or mood disturbance or anxiety Dementia severity: u nspecified severity Qualified Code(s): F01.50 - Vascular dementia, unspecified severity, without behavioral disturbance, psychotic disturbance, mood disturbance, and anxiety (6) Thoracic aortic aneurysm (TAA): QUALIFIERS: Presence of rupture: without rupture Thoracic aorta location: ascending aorta Qualified Code(s): I71.21 - Aneurysm of the ascending aorta, without rupture (7) Hx of aortic valve replacement, mechanical: (8) 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 Suspected UGIB with dark vomit and recent history of severe GERD refractory to treatment with Protonix and Carafate with 'fluid-filled esophagus' noted on CT suspicious for Esophagitis in the setting of chronic anemia and previously known GERD; with PUD with BUN/creatinine 68 mg/dL and 1.68 mg/dL confirming suspected UGIB along with Leukocytosis of 15.1K present on admission likely due to acute stress response - Admit to PCU under aspiration precautions. Keep strict NPO and give continuous IV Protonix drip. Give Zofran IV prn nausea. Give Morphine IV prn for severe (level 6-10/10) pain. Recheck CBC in AM to follow trend. Finally, we will consult gastroenterology to see this patient on- rounds in the AM for further recommendations with help appreciated in advance. 2. Adverse Drug Reaction to Coumadin with INR of 3 present on admission complicating #1 - Hold Coumadin and avoid potentially blood thinning agents until further notice. Give Vitamin K and trend INR daily. 3. Mild Rhabdomyolysis with CK of 1,218 U/L present on admission after recent fall with prolonged downtime compounding #1 & #2 - gently volume resuscitate and serialize CK to ensure improvement. 4. Morbid obesity; with BMI of 40.4 this admission plus ELIDA adding to the medical complexity of #1 - #3 - Weight loss will be recommended. Check TSH. 5. History of mechanical AVR and replacement of ascending aorta; on Coumadin - Noted. Check PT/INR daily. We will avoid Vitamin K with mechanical heart valve in place unless bleeding restarts. 6. Chronic Atrial Fibrillation; on Flecainide - Flecainide will be restarted when patient can tolerate oral intake. 7. History of CVA (06/2023) - Noted. 8. Chronic Dementia - Stable. 9. Essential hypertension - Hold scheduled antihypertensives until potential bleeding issues have been clarified and resolved. Give Hydralazine IV prn for systolic blood pressure > 160 mmHg. 10. Hyperlipidemia - Resume statin. 11. Hypothyroidism - Continue Synthroid IV for now and check TSH. 12. History of asthma - Stable with no evidence of acute flare. Give nebulizers prn. 13. History of seizures; on Keppra - Give Keppra 1g IV BID. 14. Depression - Restart antidepressant medications as previous when cleared to resume oral intake. 15. CAD; s/p NV - Stable. 16. History of CHF - Noted with no signs of volume overload at this time. 17. History of ischemic colitis - Noted. 18. CKD; stage IV with baseline creatinine of ~1.8 mg/dL - Stable. Check renal indices daily to ensure continued stability. 19. Overactive bladder; on Gemtesa - Restart Gemetesa when po intake is resumed. 20. History of migraine headaches - Noted with no complaints of headache at this time. 21. Gout - Stable with no evidence of acute flare. 22. OA - Stable. 23. Listed allergy to Sulfa and Celecoxib (hives and SOB) - Noted. 24. Listed allergy to gemfibrozil (nausea & myalgias) - Noted. 25. DVT prophylaxis - SCD's only with suspected recent GI hemorrhage. Total time: Approximately 75 minutes. Charges/Coding Visit Charges Inpatient E&M: 38792 Init Hosp L3
[2023-12-25 20:35] VITALS: BP 144/65; PULSE 100; RESP 18; TEMP 37; O2SAT 96
[2023-12-25] MEDS: Lactated Ringers 1,000 ML 100 ML IV (21:02)
[2023-12-25 21:03] LABS: Hemoglobin 9.6 g/dL (12.0-15.0); Mean Corpuscular Hgb 29.8 pg (27.0-32.0); Mean Corpuscular Volume 93.2 fL (81-99); Mean Platelet Vol. 10.7 fl (6.2-12.0); Platelet Count 236 K/mm3 (150-450); RBC Distribution Width CV 14.6 % (11.6-14.6); RBC Distribution Width SD 48.8 fl (35.1-43.9); Red Blood Count 3.22 M/mm3 (4.2-5.4); White Blood Count 15.1 K/mm3 (4.4-11.0)
[2023-12-25] MEDS: 0.9% Saline Lock 10 ML Syringe IV (21:11)
[2023-12-25] MEDS: levETIRAcetam IV 1,000 MG/100 ML BAG 400 MG IV (21:17)
[2023-12-25 21:23] LABS: AST(SGOT) 98 U/L (15-37); Alanine Aminotransfer ALT/SGPT 73 U/L (13-56); Albumin, Serum 2.9 g/dL (3.2-5.0); Alkaline Phosphatase 89 U/L (45-117); Anion Gap 10 (5-15); BUN 68 mg/dL (7-18); BUN/Creat Ratio 40.5 RATIO (10-20); Calcium,Total 8.8 mg/dL (8.5-10.1); Chloride 110 mmol/L (98-107); Creatinine, Serum 1.68 mg/dL (0.55-1.02); EST Glomerular Filtration Rate 31 mL/min (>60); Est Glom Filt Rate - Afr Amer 38 mL/min (>60); Estimated Creatinine Clearance 31.85 ml/min; Globulin 2.8 g/dL (2.2-4.2); Glucose 89 mg/dL (74-106); Potassium 3.8 mmol/L (3.5-5.1); Protein, Total 5.7 g/dL (6.4-8.2); Sodium Level 141 mmol/L (136-145)
[2023-12-25] MEDS: Pantoprazole Sodium 80 MG in 0.9% Normal Saline (100mL Bag) 80 ML 10 MG CONT INF (22:01)
[2023-12-26] VITALS (8 sets, daily range): BP systolic 122–133; BP diastolic 47–53; PULSE 92–102; RESP 13–18; TEMP 36.3–36.9; O2SAT 90–98; BMI 40.4
[2023-12-26 04:55] LABS: Bedside Glucose 75 mg/dL (74-106)
[2023-12-26 04:55] LABS: Bedside Glucose 79 mg/dL (74-106)
[2023-12-26] MEDS: Pantoprazole Sodium 80 MG in 0.9% Normal Saline (100mL Bag) 80 ML 10 MG CONT INF ×2 (05:45→15:38)
[2023-12-26] MEDS: Lactated Ringers 1,000 ML 100 ML IV (05:45)
[2023-12-26 06:25] LABS: Absolute Lymphocyte Count 0.78 X10^3/uL (0.83-4.51); Absolute Neutrophil Count 9.5 X10^3/uL (2.0-7.7); Basophil# 0.04 X10^3/uL; Basophil% 0.3 % (0-1); Eosinophils% 1.7 % (0-5); Hematocrit 26.2 % (37-47); Hemoglobin 8.4 g/dL (12.0-15.0); Lymphocyte # 0.78 X10^3/ul (0.83-4.51); Lymphocyte % 6.7 % (19-41); Mean Corp Hgb Conc 32.1 g/dL (32-36); Mean Corpuscular Hgb 29.3 pg (27.0-32.0); Mean Corpuscular Volume 91.3 fL (81-99); Mean Platelet Vol. 10.1 fl (6.2-12.0); Monocyte# 1.11 X10^3/uL; Monocyte% 9.6 % (0-10); NRBC Flagged by Analyzer 0 % (0-5); Neutrophil # 9.45 X10^3/uL (2.7-7.7); Neutrophil % 81.4 % (47-70); Platelet Count 204 K/mm3 (150-450); RBC Distribution Width CV 14.6 % (11.6-14.6); RBC Distribution Width SD 49.3 fl (35.1-43.9); Red Blood Count 2.87 M/mm3 (4.2-5.4); White Blood Count 11.6 K/mm3 (4.4-11.0)
[2023-12-26] MEDS: Budesonide Respules 0.5 MG/2 ML AMPUL.NEB. INHALATION ×2 (06:33→18:55)
[2023-12-26 06:34] LABS: International Normalized Ratio 3.2; Prothrombin Time (Protime)PT. 32.4 SECONDS (11.7-14.9)
[2023-12-26 06:53] LABS: CPK Total, Creatine Kinase 937 U/L (26-192)
[2023-12-26 06:55] LABS: Anion Gap 9 (5-15); BUN 74 mg/dL (7-18); BUN/Creat Ratio 40.7 RATIO (10-20); Calcium,Total 8.7 mg/dL (8.5-10.1); Chloride 112 mmol/L (98-107); Creatinine, Serum 1.82 mg/dL (0.55-1.02); EST Glomerular Filtration Rate 28 mL/min (>60); Est Glom Filt Rate - Afr Amer 34 mL/min (>60); Glucose 82 mg/dL (74-106); Phosphorus 3.9 mg/dL (2.5-4.9); Sodium Level 142 mmol/L (136-145)
--- NOTE | 2023-12-26 07:58 | PN.HOSP_ITS ---
Reason for Visit Reason for Visit: Diagnoses Morbid (severe) obesity due to excess calories (12/25/23) Vascular dementia, unspecified severity, without behavioral disturbance, psychotic disturbance, mood disturbance, and anxiety (12/25/23) Aneurysm of the ascending aorta, without rupture (12/25/23) Hematemesis (12/25/23) Adverse effect of unspecified drugs, medicaments and biological substances, initial encounter (12/25/23) Body mass index [BMI] 40.0-44.9, adult (12/25/23) meterman (current) use of 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s (12/25/23) Personal history of other diseases of the circulatory system (12/25/23) Personal history of peptic ulcer disease (12/25/23) Presence of prosthetic heart valve (12/25/23) Subjective Subjective Per daughter, still confused. Patient was found covered in vomit in her garage. Was confused and down for unknown period of time possibly up to 24 hours. Objective Data Objective Data Vital Signs: Vital Signs Temp Pulse Resp BP Pulse Ox O2 Del Method O2 Flow Rate 36.6 C 95 16 124/47 H 94 Nasal Cannula 2 12/26/23 02:35 12/26/23 06:35 12/26/23 06:35 12/26/23 02:35 12/26/23 06:35 12/26/23 06:35 12/26/23 07:44 Oxygen Flow Rate (L/min) 2 Oxygen Delivery Method Nasal Cannula Weight: 106.8 kg Body Mass Index (BMI) 40.4 Intake & Output: Intake and Output for Last 24 Hours 12/24/23 12/25/23 12/26/23 23:59 23:59 23:59 Intake Total 100 / 100 949.00 / 949.00 Output Total 300 / 300 Balance 100 / 100 649.00 / 649.00 Lab / Micro Data 12/26/23 12:00 12/26/23 12:00 Labs: Laboratory Results - last 24 hr 12/25/23 20:49: WBC 15.1 H, RBC 3.22 L, Hgb 9.6 L, Hct 30.0 L, MCV 93.2, MCH 29.8, MCHC 32.0, RDW Std Deviation 48.8 H, RDW Coeff of Pravin 14.6, Plt Count 236, MPV 10.7, Sodium 141, Potassium 3.8, Chloride 110 H, Carbon Dioxide 21.0, Anion Gap 10, BUN 68 H, Creatinine 1.68 H, Estim Creat Clear Calc 31.85, Est GFR (MDRD) Af Amer 38 L, Est GFR (MDRD) Non-Af 31 L, BUN/Creatinine Ratio 40.5 H, Glucose 89, Calcium 8.8, Magnesium 2.0, Total Bilirubin 0.60, AST 98 H, ALT 73 H , Alkaline Phosphatase 89, Total Protein 5.7 L, Albumin 2.9 L, Globulin 2.8, Albumin/Globulin Ratio 1.0 12/25/23 21:38: Blood Type A NEGATIVE, Antibody Screen NEGATIVE 12/26/23 02:38: POC Glucose 75 12/26/23 04:35: POC Glucose 79 12/26/23 06:11: WBC 11.6 H, RBC 2.87 L, Hgb 8.4 L, Hct 26.2 L, MCV 91.3, MCH 29.3, MCHC 32.1, RDW Std Deviation 49.3 H, RDW Coeff of Pravin 14.6, Plt Count 204, MPV 10.1, Immature Gran % (Auto) 0.300, Neut % (Auto) 81.4 H, Lymph % (Auto) 6.7 L, Darke % (Auto) 9.6, Eos % (Auto) 1.7, Baso % (Auto) 0.3, Absolute Neuts (auto) 9.5 H, Absolute Lymphs (auto) 0.78 L, Nucleated RBC % 0, PT 32.4 H, INR 3.2, Sodium 142, Potassium 4.0, Chloride 112 H, Carbon Dioxide 21.0, Anion Gap 9, BUN 74 H, Creatinine 1.82 H, Estim Creat Clear Calc 29.40, Est GFR (MDRD) Af Amer 34 L, Est GFR (MDRD) Non-Af 28 L, BUN/Creatinine Ratio 40.7 H, Glucose 82, Calcium 8.7, Phosphorus 3.9, Total Creatine Kinase 937 H, TSH 3.240 Physical Exam Const alert and no apparent distress Constitutional Narrative: To self. Think she is in [facility] and cannot tell me the month nor year. HEENT head/scalp atraumatic, moist oral mucous membranes and oropharynx normal Neck no lymphadenopathy Resp normal respiratory effort, no retractions, no use of accessory muscles and clear to auscultation bilaterally Cardio regular rate, regular rhythm, S1 normal heart sound and S2 normal heart sound GI normal to inspection, nondistended, normoactive bowel sounds, soft to palpation, non-tender, non-distended and hepatosplenomegaly Extremity normal to inspection and full ROM Neuro Neuro Narrative: Muscle strength 2 out of 5 in upper and lower extremities bilaterally. Sensorium / Orientation: awake, alert and oriented to person; Negative for oriented to place or oriented to time Psych affect normal Assessment & Plan Assessment/Plan (1) Hematemesis/vomiting blood: QUALIFIERS: Nausea presence: with nausea Qualified Code(s): K92.0 - Hematemesis (2) Vascular dementia: QUALIFIERS: Dementia behavioral or psychological symptom: without behavioral, psychotic, or mood disturbance or anxiety Dementia severity: u nspecified severity Qualified Code(s): F01.50 - Vascular dementia, unspecified severity, without behavioral disturbance, psychotic disturbance, mood disturbance, and anxiety PLAN: Plan Upper GIB * noted hematemesis * pt with h/o PUD (noted in July 2023) exacerbated by warfarin with an INR of 3.2. * on pantoprazole gtt ABLA * 9.6 to 7.6 (on 12/14 was 10.1) * Monitor. No need for transfusion at this time. Transfuse for hemoglobin 7 or less. Coagulopathy * 2/2 warfarin. Patient on warfarin for mechanical aortic valve. Per the daughter, goal INR is 2.5-3.5. * received a 1x dose of vitamin K (2.5 mg) Rhabdomyolysis * CK at outside facility 1218, down to 937. * On 2 liters of IVF Encephalopathy * Normally patient lives by herself and is independent.. I suspect that she has a metabolic encephalopathy due to being down for unknown period of time, patient did hit her head but she has no lacerations but she may have concussion. I told the patient's daughter that I doubt that this is a stroke but more likely a combination of event such as the patient being down for unknown period of time, rhabdomyolysis and questionable concussion. Patient has an old mechanical aortic valve that is been in place for greater than 20 years. She is had had issues where she has not been able to have MRIs in the past because this device is so old. Patient has not had a head CT even though she did questionably hit her head. Chronic conditions: * Obesity class III: complicates care and recovery * Mechanical AVR: warfarin held given GI bleed and anemia. When bleeding quelled, would initiate anticoagulation with heparin gtt (would avoid therapeutic enoxaparin given CKD) * Chronic afib: flecanide. Metoprolol. Warfarin on hold given the GI bleed. * Dementia: Continue with memantine * Hypothyroidism: Continue with levothyroxine * Seizure disorder continue levetiracetam * CKD IV: Patient creatinine appears to be around 1.6. 1.82 currently. Will monitor for now. Avoid nephrotoxic agents at this time. VTE prophylaxis with SCDs DW patient's dtr at bedside. Charges/Coding Visit Charges Inpatient E&M: 26636 Subs Hosp L2
[2023-12-26] MEDS: Phytonadione (Vit K) 2.5 MG in 0.9% Normal Saline (50mL Bag) 50 ML 150 MG IV (08:31)
[2023-12-26 08:58] LABS: Hemoglobin A1c 4.8 % (3.8-5.6)
--- NOTE | 2023-12-26 10:00 | EKG12_ITS ---
Test Reason : Blood Pressure : / mmHG Vent. Rate : 100 BPM Atrial Rate : 000 BPM P-R Int : 000 ms QRS Dur : 168 ms QT Int : 408 ms P-R-T Axes : 000 -19 158 degrees QTc Int : 526 ms NSR WITH 1ST DEGREE AV BLOCK Non-specific intra-ventricular conduction block Left ventricular hypertrophy with repolarization abnormality ( R in aVL , Inocencio product ) Abnormal ECG Confirmed by Yoshi Garcia ([id number]), desk editor FREDERIC PATEL ([id number]) on 12/27/2023 9:43:18 AM Referred By: Gerri Holloway Confirmed By:Yoshi Garcia
[2023-12-26] MEDS: Levothyroxine 100 MCG Tablet PO (10:22)
[2023-12-26] MEDS: Memantine Hydrochloride 10 MG Tablet PO ×2 (10:22→21:00)
[2023-12-26] MEDS: Metoprolol(XL)Succ 25 MG Tablet 12.5 MG PO (10:22)
[2023-12-26] MEDS: levETIRAcetam 1,000 MG Tablet 1000 MG PO ×2 (10:22→21:00)
[2023-12-26] MEDS: Flecainide 100 MG Tablet 50 MG PO ×2 (10:22→20:59)
[2023-12-26] MEDS: Nystatin Powder 15gm Bottle 1 APPLIC TOPICAL ×2 (10:23→21:01)
[2023-12-26 12:08] LABS: Absolute Lymphocyte Count 0.71 X10^3/uL (0.83-4.51); Basophil# 0.04 X10^3/uL; Basophil% 0.4 % (0-1); Eosinophil# 0.23 X10^3/uL; Eosinophils% 2.1 % (0-5); Hematocrit 23.7 % (37-47); Hemoglobin 7.6 g/dL (12.0-15.0); Lymphocyte # 0.71 X10^3/ul (0.83-4.51); Lymphocyte % 6.5 % (19-41); Mean Corp Hgb Conc 32.1 g/dL (32-36); Mean Corpuscular Hgb 29.5 pg (27.0-32.0); Mean Corpuscular Volume 91.9 fL (81-99); Mean Platelet Vol. 9.9 fl (6.2-12.0); Monocyte# 0.94 X10^3/uL; Monocyte% 8.5 % (0-10); NRBC Flagged by Analyzer 0 % (0-5); Neutrophil # 9.01 X10^3/uL (2.7-7.7); Neutrophil % 81.9 % (47-70); Platelet Count 185 K/mm3 (150-450); RBC Distribution Width CV 14.8 % (11.6-14.6); RBC Distribution Width SD 49.8 fl (35.1-43.9); Red Blood Count 2.58 M/mm3 (4.2-5.4)
[2023-12-26 12:17] LABS: International Normalized Ratio 2.2; Prothrombin Time (Protime)PT. 24.2 SECONDS (11.7-14.9)
[2023-12-26 12:21] LABS: Anion Gap 8 (5-15); BUN 73 mg/dL (7-18); BUN/Creat Ratio 41.2 RATIO (10-20); Calcium,Total 8.4 mg/dL (8.5-10.1); Chloride 114 mmol/L (98-107); Creatinine, Serum 1.77 mg/dL (0.55-1.02); EST Glomerular Filtration Rate 29 mL/min (>60); Est Glom Filt Rate - Afr Amer 35 mL/min (>60); Estimated Creatinine Clearance 30.23 ml/min; Glucose 83 mg/dL (74-106); Potassium 3.8 mmol/L (3.5-5.1); Sodium Level 144 mmol/L (136-145)
[2023-12-26 12:30] LABS: Bedside Glucose 80 mg/dL (74-106)
--- NOTE | 2023-12-26 13:19 | CT_ITS ---
STUDY: CT BRAIN WITHOUT CONTRAST REASON FOR EXAM: Female, 78 years old. confusion RADIATION DOSAGE (If Supplied By Facility): CTDIvol = ( 44.99 ) mGy, DLP = ( 863.60 ) mGycm TECHNIQUE: Transaxial CT imaging of the brain was performed without administration of intravenous contrast material. Individualized dose optimization techniques were used for this CT. COMPARISON: 06/21/2023 FINDINGS: Normal soft tissue structures. Normal calvarium. There is mild cerebral atrophy with widening of the extra-axial spaces and ventricular dilatation. There are areas of decreased attenuation within the white matter tracts of the supratentorial brain, consistent with microvascular disease changes. Normal basal ganglia and thalami. Normal brainstem. Normal cerebellum. There is no intracranial hemorrhage. There are no findings of an acute ischemic infarction. Normal visualized paranasal sinuses. CT/Brain/Head without Contrast IMPRESSION: Chronic involutional changes of the brain. Electronically Signed: Umesh Barrera MD at 14:08 EDT ,
[2023-12-26 17:29] LABS: Bedside Glucose 75 mg/dL (74-106)
[2023-12-26 23:37] LABS: Bedside Glucose 74 mg/dL (74-106)
[2023-12-27] VITALS (13 sets, daily range): BP systolic 96–153; BP diastolic 43–72; PULSE 68–79; RESP 14–18; TEMP 36.2–36.7; O2SAT 94–100; BMI 41.0
[2023-12-27] MEDS: Pantoprazole Sodium 80 MG in 0.9% Normal Saline (100mL Bag) 80 ML 10 MG CONT INF ×2 (02:43→14:18)
[2023-12-27] MEDS: Budesonide Respules 0.5 MG/2 ML AMPUL.NEB. INHALATION ×2 (07:02→20:54)
[2023-12-27 07:07] LABS: Absolute Lymphocyte Count 0.74 X10^3/uL (0.83-4.51); Absolute Neutrophil Count 6.3 X10^3/uL (2.0-7.7); Basophil# 0.03 X10^3/uL; Basophil% 0.4 % (0-1); Eosinophils% 4.9 % (0-5); Hematocrit 23.1 % (37-47); Lymphocyte # 0.74 X10^3/ul (0.83-4.51); Lymphocyte % 9.1 % (19-41); Mean Corp Hgb Conc 30.3 g/dL (32-36); Mean Corpuscular Hgb 28.8 pg (27.0-32.0); Mean Corpuscular Volume 95.1 fL (81-99); Mean Platelet Vol. 10.1 fl (6.2-12.0); Monocyte# 0.62 X10^3/uL; Monocyte% 7.6 % (0-10); NRBC Flagged by Analyzer 0 % (0-5); Neutrophil # 6.29 X10^3/uL (2.7-7.7); Neutrophil % 77.4 % (47-70); Platelet Count 176 K/mm3 (150-450); RBC Distribution Width SD 51.8 fl (35.1-43.9); Red Blood Count 2.43 M/mm3 (4.2-5.4); White Blood Count 8.1 K/mm3 (4.4-11.0)
[2023-12-27 07:49] LABS: Anion Gap 8 (5-15); BUN 64 mg/dL (7-18); Calcium,Total 8.6 mg/dL (8.5-10.1); Chloride 115 mmol/L (98-107); Creatinine, Serum 1.39 mg/dL (0.55-1.02); EST Glomerular Filtration Rate 39 mL/min (>60); Est Glom Filt Rate - Afr Amer 47 mL/min (>60); Estimated Creatinine Clearance 38.82 ml/min; Glucose 78 mg/dL (74-106); Potassium 3.6 mmol/L (3.5-5.1); Sodium Level 146 mmol/L (136-145)
[2023-12-27 08:18] LABS: International Normalized Ratio 1.3; Prothrombin Time (Protime)PT. 16.4 SECONDS (11.7-14.9)
[2023-12-27 08:51] LABS: Bedside Glucose 74 mg/dL (74-106)
[2023-12-27] MEDS: levETIRAcetam 1,000 MG Tablet 1000 MG PO ×2 (10:34→20:54)
[2023-12-27] MEDS: Memantine Hydrochloride 10 MG Tablet PO ×2 (10:34→20:54)
[2023-12-27] MEDS: Flecainide 100 MG Tablet 50 MG PO ×2 (10:34→20:54)
[2023-12-27] MEDS: Nystatin Powder 15gm Bottle 1 APPLIC TOPICAL ×2 (10:36→20:54)
--- NOTE | 2023-12-27 11:10 | CASEMGMT ---
AMY VELEZ Face to Face with patient for initial transition planning/care coordination assessment. AMY VELEZ introduced self and role at [facility]. Patient lying in bed, alert and oriented. Patient willing to participate in assessment and is able to answer all questions appropriately. Care providers, pharmacy, and demographics verified. Strata: 2 PCP: [facility] Specialists: Benji, hydro station operator; Alexis, GI; Solitario, neurologist; Dmitry, Software Developer Consultant; Adalid, urologist; Preferred Pharmacy: [facility] Insurance: AARP, Prescription Benefit: yes Living Will/HPOA: yes, daughter Fátima Khan LNOK: daughters Living Arrangements: Patient lives alone in a single story condo with 1 step to enter. Patient states she was independent at home Transportation: daughters DME/HHC: Patient has shower chair, raised toilet, cane, walker, grab bars at home. Patient has had [facility] HHC in the past. Patient has been to TCU and RU in the past. Patient wishes to discharge home, discussed progress with therapy and concern for safety at home. Patient states that she fell 2 other times in the last month. Discussed additional therapy at discharge and patient states she would like to go to TCU, declined list at this time. Patient states she has no further needs or concerns at this time. AMY VELEZ updated SW regarding request for TCU. CM to follow for discharge planning needs that may arise. Disposition Plan: TCU pending acceptance and precert. Dara BAUTISTA, RN, CM
--- NOTE | 2023-12-27 11:33 | CASEMGMT ---
Per RN CM patient is interested in [facility] TCU. SW made a referral to Elena in TCU. Maral Mitchell MANUFACTURING CONTROLLER PAULINE
[2023-12-27 11:51] LABS: Bedside Glucose 78 mg/dL (74-106)
--- NOTE | 2023-12-27 15:33 | CHAPLAIN ---
Type of Pastoral Visit _x__ Initial Visit ___ Follow-up Visit ___ On-call Visit ___ General Patient Visit ___ Spiritual Assessment ___ Family Conference ___ Bereavement ___ Rapid Response ___ Code Blue ___ Other (describe below) Pastoral Care Referral From _x__ Patient ___ Family ___ Nurse ___ Physician ___ Grades 1 6 Tutor ___ Asbestos Surveyor ___ Other (describe below) Sacrament/Intervention _x__ Active listening ___ Anointing ___ Cheondoism ___ Bereavement ___ Communion _x__ Oralia exploration ___ ___ Life review _x__ Prayer ___ Reconciliation ___ Sacrament of Sick _x__ Supportive presence ___ Wedding ___ Other (describe below) Pastoral Comments patient reviews recent health issue and reason for admission; pt admits that some of her memories are unclear; pt asks for a printed copy of the Lord's Prayer so she can recite it each day; pt acknowledges that she can no longer remember all the words to the prayer and she is focused on pleasing God; pt welcomes presence and prayer; other family members are in the room
--- NOTE | 2023-12-27 16:02 | CON.PCM.GI_ITS ---
HPI Consult Data Date of Consult: 12/27/23 HPI Narrative Reason for Consultation: GI bleed HPI Narrative: CHANNING CANCHOLA, is a 78 F with a past medical history of history of CVA (06/2023), history of seizures; on Keppra, chronic dementia, CAD; s/p MT, history of mechanical AVR and replacement of ascending aorta; on Coumadin, history of atrial fibrillation; on Flecainide, history of CHF, history of ischemic colitis, CKD; stage IV with baseline creatinine of ~1.8 mg/dL, overactive bladder; on Gemtesa. She also has a history of of PUD (already on Protonix and Sucralfate) previously evaluated by myself who was transferred from [facility] after she was found down at home by her family with patient then having dark vomitus suspected for hematemesis with a stable hemoglobin of 9.9 g/dL, a CK of 1,200 U/L and an INR of 3 present on admission so arrangements were made to transfer her here so she could be evaluated by myself with suspected UGIB. She was also discovered to have mild rhabdomyolysis with her CT scan of the abdomen and pelvis unremarkable except for a 'fluid-filled esophagus'. She was then volume resuscitated and treated with IV Protonix with patient then transferred here for further treatment. The patient has a poor recollection of the details of recent events but she admits to laying her garage floor all night after she fell while looking for her cat and she also endorses a history of severe GERD with frequent heartburn and nausea in spite of her Protonix and Carafate. [facility] Medical History Depression GI bleed Atrial fibrillation Balance problem Thyroid disease Arthritis History of ulceration History of edema History of echocardiogram History of stress test Cardiology follow-up encounter Gross hematuria Anemia Hypothyroidism Asthma Sleep apnea Congestive heart failure (CHF) Myocardial infarct Migraines Stroke/cerebrovascular accident CVA (cerebral vascular accident) Depression Chronic pain Kidney stones GERD (gastroesophageal reflux disease) GI bleed Atrial fibrillation Hypertension Seizures Dementia Acute UTI Hyperparathyroidism Stage 4 chronic kidney disease Thoracic aortic aneurysm (TAA) Aortic stenosis with bicuspid valve Near syncope 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 of 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 Paroxysmal atrial fibrillation Essential hypertension Migraines Head injuries Ascending aortic aneurysm Urine retention Seizure disorder Physical debility History of gout Hyperuricemia Spinal stenosis Hypothyroidism History of venous thrombosis and embolism Esophageal reflux Home Medications ?Medication ?Instructions ?Recorded ?Last Taken ?Type allopurinol 100 mg tablet 100 mg PO DAILY GOUT #90 tabs 02/22/19 07/07/23 History levothyroxine 100 mcg tablet 100 mcg PO DAILY THYROID #90 tabs 02/22/19 07/07/23 History levetiracetam 1,000 mg tablet 1,000 mg PO BID EPILEPSY 06/06/21 07/07/23 History (Keppra) oxcarbazepine 150 mg tablet 150 mg PO BID EPILESPSY 09/12/21 07/07/23 History metoprolol succinate 25 mg 12.5 mg PO DAILY HEART #90 tabs 11/25/21 07/07/23 History tablet,extended release 24 hr memantine 10 mg tablet 10 mg PO BID MEMORY 02/22/23 07/07/23 History vibegron 75 mg tablet (Gemtesa) 75 mg PO DAILY OVERACTIVE BLADDER 02/22/23 07/07/23 History duloxetine 60 mg capsule,delayed 60 mg PO DAILY DEPRESSION 03/17/23 07/07/23 History release metaxalone 400 mg tablet 400 mg PO BID MUSCLE SPASMS/PAIN 03/17/23 07/07/23 History nortriptyline 50 mg capsule 100 mg PO 1999 DEPRESSION 03/17/23 07/07/23 History cholecalciferol (vitamin D3) 50 2,000 unit PO DAILY vitamin 06/20/23 07/07/23 History mcg (2,000 unit) capsule (D3-1999) omeprazole 40 mg capsule,delayed 40 mg PO DAILY reflux 06/20/23 07/07/23 History release rosuvastatin 40 mg tablet 40 mg PO QHS cholesterol 1 month 06/22/23 07/06/23 Rx #30 tabs ascorbic acid (vitamin C) 500 mg 500 mg PO BID vitamin C #60 tabs 07/11/23 Unknown Rx tablet polysaccharide iron complex 150 mg 150 mg PO DAILY 30 days #30 caps 07/27/23 Unknown Rx iron capsule (Ferrex) sucralfate 1 gram tablet 1 g PO 0700,2200 30 days #60 tabs 07/27/23 Unknown Rx nitroglycerin 0.4 mg sublingual 0.4 mg sublingual Q5M PRN CHEST 10/08/23 Unknown Rx tablet (Nitrostat) PAIN #25 tabs topiramate 50 mg tablet (Topamax) 50 mg PO QHS migraines 10/08/23 Unknown History furosemide 40 mg tablet 40 mg PO DAILY PRN edema #90 tabs 10/27/23 Unknown Rx ondansetron HCl 4 mg tablet 4 mg PO TID PRN nausea and 12/21/23 Unknown Rx vomiting #20 tabs flecainide 100 mg tablet 50 mg PO BID heart rate 12/25/23 Unknown History hydrocodone-acetaminophen 5-325mg 1 tab PO Q12H pain 12/25/23 Unknown History 5mg-325mg multivitamin (Daily Multi-Vitamin 1 tab PO DAILY supplement 12/25/23 Unknown History tablet) warfarin 4 mg tablet 4 mg PO SUMOTUTHFRSA BLOOD THINNER 12/25/23 Unknown History warfarin 6 mg tablet (Jantoven) 6 mg PO WE 12/25/23 Unknown History Allergy/AdvReac Type Severity Reaction Status Date / Time celecoxib (From Celebrex) Allergy Severe Hives, Verified 10/08/23 13:35 swelling, difficulty breathing Sulfa (Sulfonamide Allergy Severe Hives, Verified 10/08/23 13:35 Antibiotics) swelling, difficulty breathing gemfibrozil AdvReac Intermediate Nausea,myal Verified 10/08/23 13:35 gias Family History Mother CVA (cerebral vascular accident) Breast cancer Hypertension CAD (coronary artery disease) Father Hypertension CAD (coronary artery disease) Surgical History History of esophagogastroduodenoscopy (EGD) History of appendectomy History of tilt table evaluation (05/21/16) History of thumb surgery (2004) History of lumpectomy (2009) History of bilateral breast reduction surgery (2008) History of total abdominal hysterectomy (1974) H/O chest tube placement (05/07/01) History of left heart catheterization (12/07/15) Hx of ascending aorta replacement (04/05/01) History of loop recorder Hx of aortic valve replacement, mechanical (04/05/01) History of open reduction and internal fixation (ORIF) procedure (11/30/19) Fracture of ankle, bimalleolar, left, closed Social History household members: none housing: condominium Smoking Status: Never smoker alcohol intake: never substance use type: does not use ROS ROS Narrative Review of Systems: Constitutional: Patient denies fever or chills. Eyes: Patient denies changes in vision or discharge from eyes. ENT: Patient admits to chronically poor balance but she denies runny nose, sore throat or ear pain. Resp: Patient denies SOB or cough. CV: Patient denies chest pain, palpitations or heart racing. GI: Patient admits to abdominal pain with nausea and dark colored emesis. : Patient denies dysuria or hematuria. MSK: Patient admits to back pain. Skin: Patient denies rash, abscess or jaundice. Psych: Patient denies symptoms of uncontrolled depression or anxiety. Neuro: Patient denies headache, paresthesias or focal neurologic deficits. Hematology: Patient admits to dark colored vomitus. Endocrinology: Patient denies polyuria, polydipsia or polyphagia. 14 point ROS otherwise negative except for positives noted above in HPI. Physical Exam Const alert and no apparent distress Constitutional Narrative: Patient is morbidly obese General Appearance: cooperative, well kempt and well developed Orientation / Consciousness: awake, oriented to person and oriented to place HEENT normocephalic, head/scalp atraumatic and moist oral mucous membranes Eyes PERRL, EOMs intact bilaterally and conjunctivae normal Neck supple, no JVD, thyroid normal and no carotid bruits General: trachea midline Resp normal respiratory effort, no retractions, no use of accessory muscles and clear to auscultation bilaterally Auscultation: Negative for rales, rhonchi or wheezes Cardio regular rate, regular rhythm, S1 normal heart sound, S2 normal heart sound, no murmurs, no rub and no gallops GI normal to inspection, nondistended, normoactive bowel sounds, soft to palpation, non-tender and non-distended Extremity no clubbing, cyanosis or edema Skin no rashes or lesions noted General Skin Exam: no breakdown Neuro CN's II-XII intact bilaterally, moves all extremities, no focal motor deficits and no sensory deficits noted Sensorium / Orientation: awake, alert, oriented to person and oriented to place Speech: speech normal Psych affect normal Lab / Micro Data 12/28/23 05:09 12/28/23 05:09 Labs: Laboratory Results - last 24 hr 12/25/23 21:48: Crossmatch See Detail 12/27/23 16:55: POC Glucose 62 L 12/28/23 00:18: POC Glucose 74 12/28/23 05:09: WBC 8.8, RBC 3.02 L, Hgb 9.2 L, Hct 28.3 L, MCV 93.7, MCH 30.5, MCHC 32.5 D, RDW Std Deviation 51.9 H, RDW Coeff of Pravin 15.2 H, Plt Count 193, MPV 10.2, Immature Gran % (Auto) 0.600, Neut % (Auto) 78.9 H, Lymph % (Auto) 7.4 L, [place] % (Auto) 8.9, Eos % (Auto) 3.9, Baso % (Auto) 0.3, Absolute Neuts (auto) 7.0, Absolute Lymphs (auto) 0.65 L, Nucleated RBC % 0.2, Sodium 145, Potassium 3.5, Chloride 116 H, Carbon Dioxide 24.0, Anion Gap 5, BUN 50 H, Creatinine 1.27 H, Estim Creat Clear Calc 42.65, Est GFR (MDRD) Af Amer 52 L, Est GFR (MDRD) Non-Af 43 L, BUN/Creatinine Ratio 39.4 H, Glucose 84, Calcium 8.6, Total Bilirubin 0.70, Direct Bilirubin 0.23, AST 56 H, ALT 59 H, Alkaline Phosphatase 65, Total Protein 4.9 L, Albumin 2.6 L, Globulin 2.3 12/28/23 05:52: POC Glucose 86 12/28/23 05:55: PT 14.9, INR 1.2, APTT 28.6 12/28/23 11:26: POC Glucose 80 Assessment & Plan Assessment/Plan (1) Hematemesis/vomiting blood: QUALIFIERS: Nausea presence: with nausea Qualified Code(s): K92.0 - Hematemesis (2) Vascular dementia: QUALIFIERS: Dementia severity: unspecified severity Dementia behavioral or psychological symptom: without behavioral, psychotic, or mood disturbance or anxiety Qualified Code(s): F01.50 - Vascular dementia, unspecified severity, without behavioral disturbance, psychotic disturbance, mood disturbance, and anxiety PLAN: Plan 78-year-old with history of CVA, CAD presents with upper GIB * noted hematemesis * pt with h/o PUD (noted in July 2023) exacerbated by warfarin with an INR of 3.2. * on pantoprazole gtt ABLA * 9.6 to 7.6 (on 12/14 was 10.1) * Monitor. No need for transfusion at this time. Transfuse for hemoglobin 7 or less. Coagulopathy * / warfarin. Patient on warfarin for mechanical aortic valve. Per the daughter, goal INR is 2.5-3.5. * received a 1x dose of vitamin K (2.5 mg) Rhabdomyolysis * CK at outside facility 1218, down to 937. * On 2 liters of IVF Charges/Coding Visit Charges Inpatient E&M: 11530 Init Hosp L3
[2023-12-27] MEDS: Lactulose 20 GM/30 ML UDC PO (17:55)
--- NOTE | 2023-12-27 18:29 | PCM.PN.HOSP ---
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 Objective Data Objective Data Vital Signs: Vital Signs Temp Pulse Resp BP Pulse Ox O2 Del Method O2 Flow Rate 97.7 F L 78 18 132/57 H 94 Room Air 2 12/27/23 17:05 12/27/23 17:05 12/27/23 17:05 12/27/23 17:05 12/27/23 17:05 12/27/23 17:05 12/27/23 10:24 Oxygen Flow Rate (L/min) 2 Oxygen Delivery Method Room Air Weight: 108.4 kg Body Mass Index (BMI) 41.0 Intake & Output: Intake and Output for Last 24 Hours 12/25/23 12/26/23 12/27/23 23:59 23:59 23:59 Intake Total 100 / 100 2098.08 / 2098.08 260 / 260 Output Total 900 / 900 475 / 475 Balance 100 / 100 1198.08 / 1198.08 -215 / -215 Lab / Micro Data 12/27/23 06:45 12/27/23 06:45 Labs: Laboratory Results - last 24 hr 12/25/23 21:48: Crossmatch See Detail 12/26/23 23:17: POC Glucose 74 12/27/23 05:53: POC Glucose 74 12/27/23 06:45: WBC 8.1, RBC 2.43 L, Hgb 7.0 L, Hct 23.1 L, MCV 95.1, MCH 28.8, MCHC 30.3 L D, RDW Std Deviation 51.8 H, RDW Coeff of Pravin 15.0 H, Plt Count 176, MPV 10.1, Immature Gran % (Auto) 0.600, Neut % (Auto) 77.4 H, Lymph % (Auto) 9.1 L, [place] % (Auto) 7.6, Eos % (Auto) 4.9, Baso % (Auto) 0.4, Absolute Neuts (auto) 6.3, Absolute Lymphs (auto) 0.74 L, Nucleated RBC % 0, PT 16.4 H, INR 1.3, Sodium 146 H, Potassium 3.6, Chloride 115 H, Carbon Dioxide 23.0, Anion Gap 8, BUN 64 H, Creatinine 1.39 H, Estim Creat Clear Calc 38.82, Est GFR (MDRD) Af Amer 47 L, Est GFR (MDRD) Non-Af 39 L, BUN/Creatinine Ratio 46.0 H, Glucose 78, Calcium 8.6, Phosphorus 3.0 12/27/23 11:33: POC Glucose 78 Physical Exam Const alert and no apparent distress Constitutional Narrative: Patient is morbidly obese General Appearance: cooperative, well kempt and well developed Orientation / Consciousness: awake, oriented to person and oriented to place HEENT normocephalic, head/scalp atraumatic and moist oral mucous membranes Eyes PERRL, EOMs intact bilaterally and conjunctivae normal Neck supple, no JVD, thyroid normal and no carotid bruits General: trachea midline Resp normal respiratory effort, no retractions, no use of accessory muscles and clear to auscultation bilaterally Auscultation: Negative for rales, rhonchi or wheezes Cardio regular rate, regular rhythm, S1 normal heart sound, S2 normal heart sound, no murmurs, no rub and no gallops GI normal to inspection, nondistended, normoactive bowel sounds, soft to palpation, non-tender and non-distended Extremity no clubbing, cyanosis or edema Skin no rashes or lesions noted General Skin Exam: no breakdown Neuro CN's II-XII intact bilaterally, moves all extremities, no focal motor deficits and no sensory deficits noted Sensorium / Orientation: awake, alert, oriented to person and oriented to place Speech: speech normal Psych affect normal Assessment & Plan Assessment/Plan (1) Hematemesis/vomiting blood: QUALIFIERS: Nausea presence: with nausea Qualified Code(s): K92.0 - Hematemesis PLAN: Plan 1. Acute upper GI bleed-etiology unclear at this point, patient will undergo an EGD tomorrow, I talked with gastroenterology today about her care #2 acute blood loss anemia requiring blood transfusion-patient will receive 2 units of packed red blood cell, CBC will be rechecked #3 morbid obesity-complicates care, management, recovery, and prognosis #4 valvular heart disease-patient has mechanical aortic valve, Coumadin is being held at this time, depending on the results of the patient's EGD tomorrow, patient may be restarted on her 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 #5 paroxysmal O-[id number]'s monitor strips today showed what appeared to be a period of ventricular bigeminy which was asymptomatic, again patient's Coumadin is being held at this time due to her upper GI bleed #6 dementia-patient will remain on memantine #7 hypothyroidism-patient is on Synthroid #8 seizure disorder-patient is on Keppra #9 chronic kidney disease stage IIIb-management, recovery and prognosis Total clinical time spent by myself addressing patient's medical issues, reviewing all of her data, and collaborating with patient's care team: 50 minutes Charges/Coding Visit Charges Inpatient E&M: 58542 Init Hosp L3
[2023-12-28] VITALS (14 sets, daily range): BP systolic 119–160; BP diastolic 44–82; PULSE 64–72; RESP 14–18; TEMP 36.1–37.3; O2SAT 93–100; BMI 41.0; BMI 41.3
--- NOTE | 2023-12-28 | IMM_PTH ---
PATIENT: CHANNING CANCHOLA LOC: [facility] U#:[id number] AGE/SX: 78/F ROOM: [facility] RE12/25/[address]: Dr. Dennis Barrett DO : 1945 BED: 1 DIS: 12/31/2023 SPEC #: [id number] RECD: 12/30/23 10:51 STATUS: MEGAN REQ #: [id number] OLEKSANDR: 12/28/23 00:[address]: Kenyon Espinoza DEPT: IMMUNOHISTOCHEMISTRY RECD BY: David Hunter ENTERED: 12/30/23 10:52 SP TYPE: IMMUNO OTHR DR: DO Dr. Rodrick Ross DO Dr. Mark Tereletsky, DO Dr. Paul Nielsen, MD Dr. Paige Pierce, MD Tissues: Duodenum, NOS Procedures: Synapto (add) CD45 (add) CD56 (add) CHROMO (add) CK20 (add) CK7 (add) CK8 (add) KI-67 (add) P53 (add) Pankeratin (initial) PHYSICIAN & [place] [id number] SPECIMEN INFORMATION: Tissue Source: Duodenal mass biopsy Clinical Info: Hematemesis / vomiting blood Specimen Number: [id number] CPT code: 46010,04175u9 METHODOLOGY: Deparaffinized sections of prefer/formalin-fixed tissue or PAP/DQ stained slides are incubated with monoclonal/polyclonal antibodies/oligonucleotide probes. Localization is made via biotin free immunoperoxidase method. Appropriate controls are performed and reacted as expected. Results on target cell population are indicated in the following table: RESULTS: ANTIBODY / CLONE RESULT AE1-3 (AE1/AE3/PCK26) positive, weak CK7 (OV-TL12/30) negative CK8 (63dbwxG33) positive CK20 (KS20.8) negative CD45 (RP2/18) negative CD56 (123C3.D5) positive Chromo (LK2H10) positive Synapto (polyclonal) positive P53 (DO-7) positive, rare cells, weak (wild type pattern) Ki-67 (30-9) positive, rare cells, <1% These tests were developed and their performance characteristics determined by [facility]. They may not have been cleared or approved by the U.S. Food and Drug Administration. The FDA has determined that such clearance or approval is not necessary. The above immunohistochemical/dualISH markers are ordered and reviewed by the Pathologist. INTERPRETATION: Duodenal mass, biopsy: Well differentiated neuroendocrine tumor, Grade 1 (carcinoid tumor). SJ.mr 12/31/2023
[2023-12-28] MEDS: Pantoprazole Sodium 80 MG in 0.9% Normal Saline (100mL Bag) 80 ML 10 MG CONT INF ×3 (00:19→21:58)
[2023-12-28 00:40] LABS: Bedside Glucose 74 mg/dL (74-106)
[2023-12-28 06:02] LABS: Bedside Glucose 62 mg/dL (74-106)
[2023-12-28 06:08] LABS: International Normalized Ratio 1.2; Partial Thromboplast Time 28.6 Seconds (24.1-36.2); Prothrombin Time (Protime)PT. 14.9 SECONDS (11.7-14.9)
[2023-12-28 06:20] LABS: Bedside Glucose 86 mg/dL (74-106)
[2023-12-28 06:30] LABS: Absolute Lymphocyte Count 0.65 X10^3/uL (0.83-4.51); Basophil# 0.03 X10^3/uL; Basophil% 0.3 % (0-1); Eosinophil# 0.34 X10^3/uL; Eosinophils% 3.9 % (0-5); Hematocrit 28.3 % (37-47); Hemoglobin 9.2 g/dL (12.0-15.0); Lymphocyte # 0.65 X10^3/ul (0.83-4.51); Lymphocyte % 7.4 % (19-41); Mean Corp Hgb Conc 32.5 g/dL (32-36); Mean Corpuscular Hgb 30.5 pg (27.0-32.0); Mean Corpuscular Volume 93.7 fL (81-99); Mean Platelet Vol. 10.2 fl (6.2-12.0); Monocyte# 0.78 X10^3/uL; Monocyte% 8.9 % (0-10); NRBC Flagged by Analyzer 0.2 % (0-5); Neutrophil # 6.95 X10^3/uL (2.7-7.7); Neutrophil % 78.9 % (47-70); Platelet Count 193 K/mm3 (150-450); RBC Distribution Width CV 15.2 % (11.6-14.6); RBC Distribution Width SD 51.9 fl (35.1-43.9); Red Blood Count 3.02 M/mm3 (4.2-5.4); White Blood Count 8.8 K/mm3 (4.4-11.0)
[2023-12-28 06:36] LABS: AST(SGOT) 56 U/L (15-37); Alanine Aminotransfer ALT/SGPT 59 U/L (13-56); Albumin, Serum 2.6 g/dL (3.2-5.0); Alkaline Phosphatase 65 U/L (45-117); Anion Gap 5 (5-15); BUN 50 mg/dL (7-18); BUN/Creat Ratio 39.4 RATIO (10-20); Bilirubin, Direct 0.23 mg/dL (0.00-0.30); Calcium,Total 8.6 mg/dL (8.5-10.1); Chloride 116 mmol/L (98-107); Creatinine, Serum 1.27 mg/dL (0.55-1.02); EST Glomerular Filtration Rate 43 mL/min (>60); Est Glom Filt Rate - Afr Amer 52 mL/min (>60); Estimated Creatinine Clearance 42.65 ml/min; Globulin 2.3 g/dL (2.2-4.2); Glucose 84 mg/dL (74-106); Potassium 3.5 mmol/L (3.5-5.1); Protein, Total 4.9 g/dL (6.4-8.2); Sodium Level 145 mmol/L (136-145)
[2023-12-28] MEDS: Budesonide Respules 0.5 MG/2 ML AMPUL.NEB. INHALATION ×2 (06:58→19:48)
--- NOTE | 2023-12-28 07:40 | CASEMGMT ---
TCU is not able to take patient. SW will provide patient with a long-term facility list. Maral CARPENTER
[2023-12-28] MEDS: levETIRAcetam 1,000 MG Tablet 1000 MG PO ×2 (08:29→21:59)
[2023-12-28] MEDS: Flecainide 100 MG Tablet 50 MG PO ×2 (08:29→22:00)
[2023-12-28] MEDS: Memantine Hydrochloride 10 MG Tablet PO ×2 (08:29→22:00)
[2023-12-28] MEDS: Metoprolol(XL)Succ 25 MG Tablet 12.5 MG PO (08:30)
--- NOTE | 2023-12-28 09:18 | CASEMGMT ---
Discharge Planning A list of SNF providers including quality and resource use data and consistent with the patient's preferred geographic region, medical needs, and insurance network was created in [employer] Guide.? This list was provided to the SW. Andreina Millan Discharge Planning Asst.
--- NOTE | 2023-12-28 09:59 | CASEMGMT ---
This SW and RUBY Farley Met with patient. Introduced selves and role at [facility]. SW explained TCU is unable to take patient. SW provided patient with a list of correction facility providers including quality and resource use data and consistent with patient?s preferred geographic region, medical needs, and insurance network were provided from the [employer] Guide. Patient stated she will have her daughters help. SW asked patient to pick 3 preferences and SW will take care of contacting facilities. Plan: Likely SNF pending patient choices, accepting facility, and pre-cert. Maral CARPENTER
[2023-12-28] MEDS: Nystatin Powder 15gm Bottle 1 APPLIC TOPICAL ×2 (11:04→22:01)
[2023-12-28 11:49] LABS: Bedside Glucose 80 mg/dL (74-106)
[2023-12-28] MEDS: Glycerin/Hypromellose/PEG400 15 ml Bottle 1 DRP EACH EYE (14:59)
--- NOTE | 2023-12-28 15:34 | PRE.ANES_ITS ---
ASA Classification* ASA Classification ASA Classification: 3 Assessment & Plan Anesthesia* Anesthesia Assessment Anesthesia Assessment: Discussed sedation and/or anesthesia options, risks, benefits, and alternatives with patient/parents/legal guardian/POA. Questions invited. The patient/parents/legal guardian/POA seems to understand and agrees to proceed with anesthesia plan. Reviewed the physical assessment, medical history, allergy history and patient home medications list prior to surgery/procedure/anesthetic and documented any changes. Performed airway and anesthesia risk assessments. Anesthesia Type Anesthesia Type: MAC History Source History Obtained from:: Patient and Chart Anesthesia Focused Assessment* Temperature: 97.2 F Pulse Rate: 66 Blood Pressure: 141/63 Respiratory Rate: 14 Pulse Ox: 97 Oxygen Delivery Method: Room Air Airway Assessment Mouth opens: >3 cm Mallampati Score: III Teeth Condition: Caps/Crowns (Patient has implants molars these are tight.) Neck Range of motion (ROM): Limited ROM Pertinent Findings EKG Pertinent Findings:: December 28, 2023. Normal sinus rhythm. Left ventricular hypertrophy with QRS widening and repolarization abnormality. Focused Labs Anesthesia Preop lab: CBC WBC 8.8 K/mm3 (4.4-11.0) 12/28/23 05:09 RBC 3.02 M/mm3 (4.2-5.4) L 12/28/23 05:09 Hgb 9.2 g/dL (12.0-15.0) L 12/28/23 05:09 Hct 28.3 % (37-47) L 12/28/23 05:09 Plt Count 193 K/mm3 (150-450) 12/28/23 05:09 CHEMISTRY Potassium 3.5 mmol/L (3.5-5.1) 12/28/23 05:09 Sodium 145 mmol/L (136-145) 12/28/23 05:09 Magnesium 2.0 mg/dL (1.6-2.6) 12/25/23 20:49 Phosphorus 3.0 mg/dL (2.5-4.9) 12/27/23 06:45 BUN 50 mg/dL (7-18) H 12/28/23 05:09 Creatinine 1.27 mg/dL (0.55-1.02) H 12/28/23 05:09 Glucose 84 mg/dL (74-106) 12/28/23 05:09 POC Glucose 80 mg/dL (74-106) 12/28/23 11:26 TSH 3.240 uIU/mL (0.358-3.740) 12/26/23 06:11 COAG PT 14.9 SECONDS (11.7-14.9) 12/28/23 05:55 INR 5.1 H* 08/27/23 15:17 Pre-Assessment Diagnosis/Proposed Procedure Planned Operative Procedure(s): Esophagogastroduodenoscopy. 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 When Was Last Pacemaker Check QUESTION #4 FULL TEXT: You/Your Family Experience fever (hyperthermia) with Anesthesia Last Oral Intake Last Oral intake: Last Oral Intake NPO since 00:00 12/28/23 04:03 Meds taken in AM with sips of water? Meds patient instructed to take am of surgery PONV PONV - international marketing manager: PONV - international marketing manager Female HX of Motion Sickness HX of N/V After Surgery Non-Smoker Duration of Surgery greater than 60 minutes Number of Risk Factors PONV Score Height & Weight Height & Weight: Anesthesia: Height & Weight Height 5 ft 4 in 12/28/23 04:03 Weight: 109.1 kg 12/28/23 04:25 Body Mass Index (BMI) 41.3 12/28/23 04:25 Respiratory Assessment Respiratory Assessment - international marketing manager: Respiratory Tract Infection Hx - international marketing manager Hx Respiratory Tract Infection No 12/28/23 04:02 Cough for past 4-6 weeks. Any additional information?: Yes Hx Respiratory Tract Infection: Yes STOP Sleep Apnea STOP Sleep Apnea - international marketing manager: STOP Sleep Apnea - international marketing manager Hx Hypertension No 12/26/23 07:44 Hx Sleep Apnea Yes: Doesnt wear anything 12/25/23 20:17 CPAP No 12/25/23 20:17 BIPAP No 12/25/23 20:17 Do you snore loudly (louder than talking or can be heard Do you often feel tired/ fatigued/ sleepy during daytime? Has anyone observed you stop breathing during sleep? STOP Results Positive 12/25/23 20:17 QUESTION #5 FULL TEXT : Do you snore loudly (louder than talking or can be heard through closed doors)? 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 Specify any problems Hx of Preganancy in last 3 N/A 12/25/23 20:17 Months Nurse Filling Out Transfusion ALOWDEN 12/25/23 20:17 & Questions: Date: 12/25/23 12/25/23 20:17 Time: 20:22 12/25/23 20:17 Patient unable to answer at this time (ie. confused, unrespo /Reproduction History /Reproductive History - international marketing manager: /Reproductive Hx- international marketing manager Hx Now No 12/27/23 05:57 Gestational Age (in weeks): EDC: Hx Hx Para Hx Section SAB Active Medications Active Medications: Current Medications Generic Name Dose Route Start Last Admin Trade Name Freq PRN Reason Stop Dose Admin Albuterol Sulfate 2.5 mg 12/25/23 20:36 Albuterol 2.5 Mg/3 Ml Vial.Neb. INHALATION Q2H PRN PRN SOB &/OR WHEEZING Budesonide 0.5 mg 12/25/23 22:00 12/28/23 06:58 Budesonide Respules 0.5 Mg/2 Ml Ampul.Neb. INHALATION 0.5 mg Q12H.RT PABLITO Administration Flecainide Acetate 50 mg 12/26/23 10:00 12/28/23 08:29 Flecainide 100 Mg Tablet PO 50 mg BID PABLITO Administration Glycerin/Hypromellose/Polyethylene 1 drp 12/28/23 14:29 12/28/23 14:59 Glycerin/Hypromellose/Ift356 15 Ml Bottle EACH EYE 1 drp Q1H PRN Administration DRY EYES Sodium Chloride 100 mls @ 15 mls/hr 12/25/23 20:18 IV .Q6H40M PRN Saline Flush Sodium Chloride 100 mls @ 15 mls/hr 12/25/23 20:18 IV .Q6H40M PRN Additional IVPB Infusion Pantoprazole Sodium 80 mg/ 100 mls @ 10 mls/hr 12/25/23 20:29 12/28/23 11:28 Sodium Chloride CONT INF 10 mls/hr Q10H PABLITO Administration Dextrose 250 mls @ 0 mls/hr 12/26/23 03:44 Dextrose 10%-Water IV .Q0M PRN Hypoglycemia As Directed Levetiracetam 1,000 mg 12/26/23 10:00 12/28/23 08:29 Levetiracetam 1,000 Mg Tablet PO 1,000 mg BID PABLITO Administration Levothyroxine Sodium 100 mcg 12/26/23 09:00 12/28/23 06:07 Levothyroxine 100 Mcg Tablet PO Not Given DAILY@0600 PABLITO Memantine 10 mg 12/26/23 10:00 12/28/23 08:29 Memantine Hydrochloride 10 Mg Tablet PO 10 mg BID PABLITO Administration Metoprolol Succinate 12.5 mg 12/26/23 10:00 12/28/23 08:30 Metoprolol(Xl)Succ 25 Mg Tablet PO 12.5 mg DAILY PABLITO Administration Protocol Morphine Sulfate 2 mg 12/25/23 20:36 Morphine 2 Mg/Ml Syringe IV Q4H PRN PRN Pain Score 6-10 Nitroglycerin 0.4 mg 12/25/23 20:36 Nitroglycerin (Inpatient Use) 0.4 Mg Tab.Subl SL Q5M PRN CHEST PAIN Nystatin 1 applic 12/26/23 10:00 12/28/23 11:04 Nystatin Powder 15gm Bottle TOPICAL 1 applic BID PABLITO Administration Protocol Ondansetron HCl 4 mg 12/25/23 20:36 Ondansetron 4 Mg/2 Ml Vial IV Q6H PRN PRN NAUSEA/VOMITING Sodium Chloride 10 - 40 ml 12/25/23 20:18 12/25/23 21:11 0.9% Saline Lock 10 Ml Syringe IV 10 ml UD PRN Administration SALINE FLUSH PFSH Medical History Depression GI bleed Atrial fibrillation Balance problem Thyroid disease Arthritis History of ulceration History of edema History of echocardiogram History of stress test Cardiology follow-up encounter Gross hematuria Anemia Hypothyroidism Asthma Sleep apnea Congestive heart failure (CHF) Myocardial infarct Migraines Stroke/cerebrovascular accident CVA (cerebral vascular accident) Depression Chronic pain Kidney stones GERD (gastroesophageal reflux disease) GI bleed Atrial fibrillation Hypertension Seizures Dementia Acute UTI Hyperparathyroidism Stage 4 chronic kidney disease Thoracic aortic aneurysm (TAA) Aortic stenosis with bicuspid valve Near syncope [facility] current use of 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 Paroxysmal atrial fibrillation Essential hypertension Migraines Head injuries Ascending aortic aneurysm Urine retention Seizure disorder Physical debility History of gout Hyperuricemia Spinal stenosis Hypothyroidism History of venous thrombosis and embolism Esophageal reflux Home Medications ?Medication ?Instructions ?Recorded ?Last Taken ?Type allopurinol 100 mg tablet 100 mg PO DAILY GOUT #90 tabs 02/22/19 07/07/23 History levothyroxine 100 mcg tablet 100 mcg PO DAILY THYROID #90 tabs 02/22/19 07/07/23 History levetiracetam 1,000 mg tablet 1,000 mg PO BID EPILEPSY 06/06/21 07/07/23 History (Keppra) oxcarbazepine 150 mg tablet 150 mg PO BID EPILESPSY 09/12/21 07/07/23 History metoprolol succinate 25 mg 12.5 mg PO DAILY HEART #90 tabs 11/25/21 07/07/23 History tablet,extended release 24 hr memantine 10 mg tablet 10 mg PO BID MEMORY 02/22/23 07/07/23 History vibegron 75 mg tablet (Gemtesa) 75 mg PO DAILY OVERACTIVE BLADDER 02/22/23 07/07/23 History duloxetine 60 mg capsule,delayed 60 mg PO DAILY DEPRESSION 03/17/23 07/07/23 History release metaxalone 400 mg tablet 400 mg PO BID MUSCLE SPASMS/PAIN 03/17/23 07/07/23 History nortriptyline 50 mg capsule 100 mg PO 1999 DEPRESSION 03/17/23 07/07/23 History cholecalciferol (vitamin D3) 50 2,000 unit PO DAILY vitamin 06/20/23 07/07/23 History mcg (2,000 unit) capsule (D3-1999) omeprazole 40 mg capsule,delayed 40 mg PO DAILY reflux 06/20/23 07/07/23 History release rosuvastatin 40 mg tablet 40 mg PO QHS cholesterol 1 month 06/22/23 07/06/23 Rx #30 tabs ascorbic acid (vitamin C) 500 mg 500 mg PO BID vitamin C #60 tabs 07/11/23 Unknown Rx tablet polysaccharide iron complex 150 mg 150 mg PO DAILY 30 days #30 caps 07/27/23 Unknown Rx iron capsule (Ferrex) sucralfate 1 gram tablet 1 g PO 0700,2200 30 days #60 tabs 07/27/23 Unknown Rx nitroglycerin 0.4 mg sublingual 0.4 mg sublingual Q5M PRN CHEST 10/08/23 Unknown Rx tablet (Nitrostat) PAIN #25 tabs topiramate 50 mg tablet (Topamax) 50 mg PO QHS migraines 10/08/23 Unknown History furosemide 40 mg tablet 40 mg PO DAILY PRN edema #90 tabs 10/27/23 Unknown Rx ondansetron HCl 4 mg tablet 4 mg PO TID PRN nausea and 12/21/23 Unknown Rx vomiting #20 tabs flecainide 100 mg tablet 50 mg PO BID heart rate 12/25/23 Unknown History hydrocodone-acetaminophen 5-325mg 1 tab PO Q12H pain 12/25/23 Unknown History 5mg-325mg multivitamin (Daily Multi-Vitamin 1 tab PO DAILY supplement 12/25/23 Unknown History tablet) warfarin 4 mg tablet 4 mg PO SUMOTUTHFRSA BLOOD THINNER 12/25/23 Unknown History warfarin 6 mg tablet (Jantoven) 6 mg PO WE 12/25/23 Unknown History Allergy/AdvReac Type Severity Reaction Status Date / Time celecoxib (From Celebrex) Allergy Severe Hives, Verified 10/08/23 13:35 swelling, difficulty breathing Sulfa (Sulfonamide Allergy Severe Hives, Verified 10/08/23 13:35 Antibiotics) swelling, difficulty breathing gemfibrozil AdvReac Intermediate Nausea,myal Verified 10/08/23 13:35 gias Family History Mother CVA (cerebral vascular accident) Breast cancer Hypertension CAD (coronary artery disease) Father Hypertension CAD (coronary artery disease) Surgical History History of esophagogastroduodenoscopy (EGD) History of appendectomy History of tilt table evaluation (05/21/16) History of thumb surgery (2004) History of lumpectomy (2009) History of bilateral breast reduction surgery (2008) History of total abdominal hysterectomy (1974) H/O chest tube placement (05/07/01) History of left heart catheterization (12/07/15) Hx of ascending aorta replacement (04/05/01) History of loop recorder Hx of aortic valve replacement, mechanical (04/05/01) History of open reduction and internal fixation (ORIF) procedure (11/30/19) Fracture of ankle, bimalleolar, left, closed Social History household members: none housing: condominium Smoking Status: Never smoker alcohol intake: never substance use type: does not use Review of Systems (Anesthesia) ROS Narrative System reviewed and no additional complaints, except as documented.
--- NOTE | 2023-12-28 15:45 | EGD_PTH ---
PATIENT: CHANNING CANCHOLA LOC: [facility] U#:[id number] AGE/SX: 78/F ROOM: [facility] RE12/25/[address]: Dr. Dennis Barrett DO : 1945 BED: 1 DIS: 12/31/2023 SPEC #: [id number] RECD: 12/28/23 17:52 STATUS: MEGAN RECeleste #: [id number] OLEKSANDR: 12/28/23 15:[address]: Dennis Barrett DEPT: SURGICAL PATHOLOGY RECD BY: Sherri Walters ENTERED: 12/29/23 08:07 SP TYPE: EGD BIOPSY OT DR: DO Dr. Rodrick Ross DO Dr. Paul Nielsen, MD Dr. Paige Pierce, MD Tissues: Duodenum, NOS Procedures: Surgery Specimen Level IV HEADER OPERATION: EGD with biopsy PRE-OP DIAGNOSIS: Hematemesis / vomiting blood TISSUE SUBMITTED: Duodenal mass biopsy MICROSCOPIC DIAGNOSIS Duodenal mass, biopsy: Well differentiated neuroendocrine tumor, grade1 (carcinoid tumor). Focal gastric metaplasia. See comment. 12/30/2023 COMMENT Immunohistochemistry ([id number]) supports the above diagnosis. Please make reference to previous specimen [id number] duodenal polyp, biopsy with diagnosis of low-grade neuroendocrine tumor. This case has been reviewed in consultation with Dr. Cloud who concurs with the above diagnosis. MICROSCOPIC DESCRIPTION Slides are reviewed. GROSS DESCRIPTION Received in fixative is one container labeled with the patient's name and designated Duodenal mass biopsy. The specimen consists of two irregular fragments of light colon soft tissue that in aggregate measure 0.7 x 0.5 x 0.1 cm. The specimen is totally submitted in one cassette. 12/29/2023 TC:1 CPT:70726
--- NOTE | 2023-12-28 16:28 | OP.CCLET_ITS ---
12/28/2023 Kishore Ricci MD [address] [id number] Re : Upper GI endoscopy procedure for Shi Mckeon Dear Dr. Ricci This procedure was performed on Thursday, December 28, 2023. My impressions and recommendations are as follows: Impressions : - Normal esophagus. - No gross lesions in the entire stomach. - A single duodenal polyp. Biopsied. Recommendations : - Return patient to [facility] for [facility] care. - Resume regular diet. - Continue present medications. - Await pathology results. My findings are described in the full procedure note, which is enclosed. If I can be of further assistance, please feel free to contact me at . Sincerely, Kenyon Espinoza, 12/28/2023 4:27:21 PM This report has been signed electronically.
--- NOTE | 2023-12-28 16:28 | OP.EGD_ITS ---
Patient Name: Shi Mckeon Procedure Date: 12/28/2023 4:06 PM Date of : 1945 Age: 78 Procedure: Upper GI endoscopy Indications: Hematemesis Providers: Kenyon Espinoza DO Referring MD: Gerri Holloway Md Medicines: Monitored Anesthesia Care Patient Profile: This is an 78 year old female. Refer to note in patient chart for documentation of history and physical. Patient has symptoms. Complications: No immediate complications. Procedure: Pre-Anesthesia Assessment: - Prior to the procedure, a History and Physical was performed, and patient medications and allergies were reviewed. The patient is competent. The risks and benefits of the procedure and the sedation options and risks were discussed with the patient. All questions were answered and informed consent was obtained. Patient identification and proposed procedure were verified by the physician in the pre-procedure area. Mental Status Examination: alert and oriented. Airway Examination: normal oropharyngeal airway and neck mobility. Respiratory Examination: clear to auscultation. CV Examination: normal. Prophylactic Antibiotics: The patient does not require prophylactic antibiotics. Prior Anticoagulants: The patient has taken no 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 or antiplatelet agents except for NSAID medication. ASA Grade Assessment: II - A patient with mild systemic disease. After reviewing the risks and benefits, the patient was deemed in satisfactory condition to undergo the procedure. The anesthesia plan was to use monitored anesthesia care (MAC). Immediately prior to administration of medications, the patient was re-assessed for adequacy to receive sedatives. The heart rate, respiratory rate, oxygen saturations, blood pressure, adequacy of pulmonary ventilation, and response to care were monitored throughout the procedure. The physical status of the patient was re-assessed after the procedure. After obtaining informed consent, the endoscope was passed under direct vision. Throughout the procedure, the patient's blood pressure, pulse, and oxygen saturations were monitored continuously. The Endoscope was introduced through the mouth, and advanced to the second part of duodenum. The upper GI endoscopy was accomplished without difficulty. The patient tolerated the procedure well. Scope In: 4:13:25 PM Scope Out: 4:19:29 PM Total Procedure Duration Time 0 hours 6 minutes 4 seconds Findings: The examined esophagus was normal. No gross lesions were noted in the entire examined stomach. A single 20 mm semi-sessile polyp with bleeding was found in the duodenal bulb. Biopsies were taken with a cold forceps for histology. Verification of patient identification for the specimen was done. Estimated blood loss was minimal. Impression: - Normal esophagus. - No gross lesions in the entire stomach. - A single duodenal polyp. Biopsied. Recommendation: - Return patient to [facility] for ongoing care. - Resume regular diet. - Continue present medications. - Await pathology results. Procedure Code(s): --- Professional --- 05508, Esophagogastroduodenoscopy, flexible, transoral; with biopsy, single or multiple CPT copyright 2021 [employer]. All rights reserved. The codes documented in this report are preliminary and upon remote coders review may be revised to meet current compliance requirements. Kenyon Espinoza DO 12/28/2023 4:27:21 PM This report has been signed electronically. Number of Addenda: 0 Note Initiated On: 12/28/2023 4:06 PM
--- NOTE | 2023-12-28 16:28 | PCM.POST.ANE ---
Anesthesia: Postop Eval I Current Vital Signs Temperature: 99.2 F Pulse Rate: 68 Blood Pressure: 160/61 Respiratory Rate: 16 Pulse Ox: 100 Oxygen Delivery Method: Room Air Assessment Airway patent: Yes Spontaneous unlabored respirations: Yes Mental status: Awake and Calm nausea: No Vomiting: No Anesthesia Complication: No Fluid Hydration Crystalloid volume administer (ml): 30 Total IV fluid infused: 30 Progress Note Anesthesia document: Postop Eval 1 completed: Yes
--- NOTE | 2023-12-28 17:04 | PCM.POSTANE2 ---
Anesthesia Postop Eval I Sum Postop Eval Completion status Anesthesia document: Postop Eval 1 completed: Yes Anesthesia Postop Eval I Summary Anesthesia Postop Eval I Summary: Anesthesia Postop Eval I: Assessment Summary Airway patent Yes 12/28/23 16:29 [email or web address] Spontaneous unlabored Yes 12/28/23 16:29 [email or web address] respirations Mental status Awake,Calm 12/28/23 16:29 [email or web address] nausea No 12/28/23 16:29 [email or web address] Vomiting No 12/28/23 16:29 [email or web address] Anesthesia Postop Eval I: Fluid Summary Crystalloid volume administer 30 12/28/23 16:29 [email or web address] (ml) Colloids volume administered ( ml) Blood Product volume administered (ml) Total IV fluid infused 30 12/28/23 16:29 [email or web address] Anesthesia Postop Eval I: Summary Notes Anesthesia Complication No 12/28/23 16:29 [email or web address] Anesthesia Complication Comment: Post-operative progress note Anesthesia: Postop Eval II Evaluation Mental status: Awake and Calm Pain Level: 0 nausea: No Vomiting: No Complications Anesthesia Complication: No
[2023-12-28] MEDS: Enoxaparin 100 MG/ML Syringe SC (17:39)
--- NOTE | 2023-12-28 17:57 | PN.HOSP_ITS ---
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 There is no evidence of active bleeding, I talk with her daughter this afternoon, I started the patient's warfarin again and placed her on Lovenox twice daily for full anticoagulation due to her history of mechanical heart valve. Patient was approached by aids social worker today and a skilled nursing was discussed with the patient but upon my discussion with her, patient does not really want to go to a skilled nursing she prefers to go home. Daughter wants her to be seen by PT and OT again tomorrow to see how stable she is walking. Objective Data Objective Data Vital Signs: Vital Signs Temp Pulse Resp BP Pulse Ox O2 Del Method O2 Flow Rate 97.6 F L 70 16 151/55 H 100 Room Air 2 12/28/23 17:31 12/28/23 17:31 12/28/23 17:31 12/28/23 17:31 12/28/23 17:31 12/28/23 17:31 12/28/23 15:36 Oxygen Flow Rate (L/min) 2 Oxygen Delivery Method Room Air Weight: 109.1 kg Body Mass Index (BMI) 41.3 Intake & Output: Intake and Output for Last 24 Hours 12/26/23 12/27/23 12/28/23 23:59 23:59 23:59 Intake Total 2098.08 / 2098.08 742 / 742 200 / 200 Output Total 900 / 900 700 / 700 300 / 300 Balance 1198.08 / 1198.08 42 / 42 -100 / -100 Lab / Micro Data 12/28/23 05:09 12/28/23 05:09 Labs: Laboratory Results - last 24 hr 12/25/23 21:48: Crossmatch See Detail 12/27/23 16:55: POC Glucose 62 L 12/28/23 00:18: POC Glucose 74 12/28/23 05:09: WBC 8.8, RBC 3.02 L, Hgb 9.2 L, Hct 28.3 L, MCV 93.7, MCH 30.5, MCHC 32.5 D, RDW Std Deviation 51.9 H, RDW Coeff of Pravin 15.2 H, Plt Count 193, MPV 10.2, Immature Gran % (Auto) 0.600, Neut % (Auto) 78.9 H, Lymph % (Auto) 7.4 L, [place] % (Auto) 8.9, Eos % (Auto) 3.9, Baso % (Auto) 0.3, Absolute Neuts (auto) 7.0, Absolute Lymphs (auto) 0.65 L, Nucleated RBC % 0.2, Sodium 145, Potassium 3.5, Chloride 116 H, Carbon Dioxide 24.0, Anion Gap 5, BUN 50 H, C reatinine 1.27 H, Estim Creat Clear Calc 42.65, Est GFR (MDRD) Af Amer 52 L, Est GFR (MDRD) Non-Af 43 L, BUN/Creatinine Ratio 39.4 H, Glucose 84, Calcium 8.6, Total Bilirubin 0.70, Direct Bilirubin 0.23, AST 56 H, ALT 59 H, Alkaline Phosphatase 65, Total Protein 4.9 L, Albumin 2.6 L, Globulin 2.3 12/28/23 05:52: POC Glucose 86 12/28/23 05:55: PT 14.9, INR 1.2, APTT 28.6 12/28/23 11:26: POC Glucose 80 Physical Exam Narrative alert and no apparent distress Constitutional Narrative: Patient is morbidly obese General Appearance: cooperative, well kempt and well developed Orientation / Consciousness: awake, oriented to person and oriented to place HEENT normocephalic, head/scalp atraumatic and moist oral mucous membranes Eyes PERRL, EOMs intact bilaterally and conjunctivae normal Neck supple, no JVD, thyroid normal and no carotid bruits General: trachea midline Resp normal respiratory effort, no retractions, no use of accessory muscles and clear to auscultation bilaterally Auscultation: Negative for rales, rhonchi or wheezes Cardio regular rate, regular rhythm, mechanical click is noted over the precordium, no murmurs, no rub and no gallops GI normal to inspection, nondistended, normoactive bowel sounds, soft to palpation, non-tender and non-distended Extremity no clubbing, cyanosis or edema Skin no rashes or lesions noted General Skin Exam: no breakdown Neuro CN's II-XII intact bilaterally, moves all extremities, no focal motor deficits and no sensory deficits noted Sensorium / Orientation: awake, alert, oriented to person and oriented to place Speech: speech normal Psych affect normal Assessment & Plan Assessment/Plan (1) Hematemesis/vomiting blood: QUALIFIERS: Nausea presence: with nausea Qualified Code(s): K92.0 - Hematemesis PLAN: Plan 1. Acute upper GI bleed-etiology unclear at this point, patient has no evidence for continued GI bleeding at this time, her hemoglobin is stable. H&H will be rechecked tomorrow, patient will be placed on oral PPI and her continuous infusion of IV PPI will be stopped #2 acute blood loss anemia requiring blood transfusion-patient's hemoglobin will be rechecked tomorrow #3 morbid obesity-complicates care, management, recovery, and prognosis #4 valvular heart disease-patient has mechanical aortic valve-patient's warfarin was restarted today and she was placed on Lovenox until her INR is therapeutic. #5 paroxysmal D-[id number]'s Coumadin will be restarted, she will also be placed on Lovenox until her INR becomes therapeutic. INR will be repeated tomorrow. #6 dementia-patient will remain on memantine #7 hypothyroidism-patient is on Synthroid #8 seizure disorder-patient is on Keppra #9 chronic kidney disease stage IIIb-management, recovery and prognosis Total clinical time spent by myself addressing patient's medical issues, reviewing all of her data, and collaborating with patient's care team: 35 minutes Charges/Coding Visit Charges Inpatient E&M: 40892 Subs Hosp L2
[2023-12-29] VITALS (7 sets, daily range): BP systolic 122–139; BP diastolic 45–91; PULSE 59–74; RESP 18–20; TEMP 36.3–36.8; O2SAT 92–98
--- NOTE | 2023-12-29 05:10 | NURSING ---
Pt woke up from sleep agitated and confused. Pt refusing lab draws and medication this morning saying, No, just put the phone down and sit down. This RN tried to explain to pt why they are checking labs, but pt states she just wants to go back to sleep. This RN made sure bed alarm is on and call light within reach of pt. Charge Weigher states they will have someone else come in at 0800 to try her again. Pt sleeping in bed and has no further concerns at this time.
[2023-12-29] MEDS: Budesonide Respules 0.5 MG/2 ML AMPUL.NEB. INHALATION ×2 (07:21→20:10)
[2023-12-29 07:54] LABS: Hematocrit 29.7 % (37-47); Hemoglobin 9.7 g/dL (12.0-15.0)
[2023-12-29 09:24] LABS: International Normalized Ratio 1.3; Prothrombin Time (Protime)PT. 16.1 SECONDS (11.7-14.9)
[2023-12-29] MEDS: Pantoprazole Sodium 80 MG in 0.9% Normal Saline (100mL Bag) 80 ML 10 MG CONT INF (09:26)
[2023-12-29] MEDS: Flecainide 100 MG Tablet 50 MG PO ×2 (09:31→21:37)
[2023-12-29] MEDS: levETIRAcetam 1,000 MG Tablet 1000 MG PO ×2 (09:31→21:36)
[2023-12-29] MEDS: Metoprolol(XL)Succ 25 MG Tablet 12.5 MG PO (09:31)
[2023-12-29] MEDS: Memantine Hydrochloride 10 MG Tablet PO ×2 (09:31→21:38)
[2023-12-29] MEDS: Nystatin Powder 15gm Bottle 1 APPLIC TOPICAL ×2 (09:33→21:40)
--- NOTE | 2023-12-29 10:56 | CASEMGMT ---
Patient is more confused today. Patient's daughter Fátima (also is patient's HCPOA) was present today. This RUBY and RUBY Farley met with Fátima in the hallway. Fátima agrees patient should go somewhere for rehab. At least until patient's son comes in town to stay with patient on Jan 09. Fátima is aware TCU and Rehab are not options. Fátima said she would like to go look at [facility]. However, Fátima was okay with SW sending a referral now. Physician then went to patient's room and did tell patient she will need to go somewhere short term. Patient was agreeable as long as it was short term. RUBY asked Andreina to send a referral to [facility]. Maral Mitchell SUSTAIN ENGINEER PAULINE
--- NOTE | 2023-12-29 11:06 | CASEMGMT ---
Addendum entered by Andreina Millan 12/29/23 11:12: [facility] declined d/t no bed availability. Andreina Millan DC Planning Asst. Original Note: Discharge Planning Referral sent to [facility] via [facility]. Andreina Millan DC Planning Asst
--- NOTE | 2023-12-29 11:36 | CASEMGMT ---
RUBY called patient's daughter Fátima and let her know [facility]. Fátima will review the list and get back with RUBY. RUBY then received a voice mail from Fátima. The next 3 choices are: [facility], [facility], and [facility]. RUBY asked Andreina to send a referral to [facility]. Plan: SNF pending accepting facility and insurance approval. Maral CARPENTER
--- NOTE | 2023-12-29 12:19 | CASEMGMT ---
Addendum entered by Andreina Millan 12/30/23 10:44: [facility] has accepted and will begin precert. SW updated. Andreina Millan DC Planning Asst. Original Note: Discharge Planning Referral faxed to [facility]. Fax confirmation rec'd. Andreina Millan DC Planning Asst.
--- NOTE | 2023-12-29 14:03 | PCM.PN.HOSP ---
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 Patient has agreed to going to a skilled care facility for short-term rehab services, patient's daughter is okay with this., Patient's INR today was subtherapeutic I gave an extra dose of warfarin this morning, she remains on Lovenox at this time until her INR is therapeutic. Patient's hemoglobin has remained stable at this time Objective Data Objective Data Vital Signs: Vital Signs Temp Pulse Resp BP Pulse Ox O2 Del Method O2 Flow Rate 97.8 F 72 18 136/91 H 94 Room Air 2 12/29/23 08:00 12/29/23 09:31 12/29/23 08:00 12/29/23 09:31 12/29/23 08:00 12/29/23 13:48 12/28/23 15:36 Oxygen Flow Rate (L/min) 2 Oxygen Delivery Method Room Air Weight: 109.1 kg Body Mass Index (BMI) 41.3 Intake & Output: Intake and Output for Last 24 Hours 12/27/23 12/28/23 12/29/23 23:59 23:59 23:59 Intake Total 742 / 742 660 / 660 340 / 340 Output Total 700 / 700 750 / 750 400 / 400 Balance 42 / 42 -90 / -90 -60 / -60 Lab / Micro Data 12/29/23 07:45 12/28/23 05:09 Labs: Laboratory Results - last 24 hr 12/29/23 07:45: Hgb 9.7 L, Hct 29.7 L 12/29/23 08:26: PT 16.1 H, INR 1.3 Physical Exam Narrative alert and no apparent distress Constitutional Narrative: Patient is morbidly obese General Appearance: cooperative, well kempt and well developed Orientation / Consciousness: awake, oriented to person and oriented to place HEENT normocephalic, head/scalp atraumatic and moist oral mucous membranes Eyes PERRL, EOMs intact bilaterally and conjunctivae normal Neck supple, no JVD, thyroid normal and no carotid bruits General: trachea midline Resp normal respiratory effort, no retractions, no use of accessory muscles and clear to auscultation bilaterally Auscultation: Negative for rales, rhonchi or wheezes Cardio regular rate, regular rhythm, mechanical click is noted over the precordium, no murmurs, no rub and no gallops GI normal to inspection, nondistended, normoactive bowel sounds, soft to palpation, non-tender and non-distended Extremity no clubbing, cyanosis or edema Skin no rashes or lesions noted General Skin Exam: no breakdown Neuro CN's II-XII intact bilaterally, moves all extremities, no focal motor deficits and no sensory deficits noted Sensorium / Orientation: awake, alert, oriented to person and oriented to place Speech: speech normal Psych affect normal Assessment & Plan Assessment/Plan (1) Acute posthemorrhagic anemia: (2) Hematemesis/vomiting blood: QUALIFIERS: Nausea presence: with nausea Qualified Code(s): K92.0 - Hematemesis PLAN: Plan 1. Acute upper GI bleed-etiology unclear at this point, patient has no evidence for continued GI bleeding at this time, her hemoglobin is stable. #2 acute blood loss anemia requiring blood transfusion-there is no evidence for bleeding at this time, hemoglobin appears stable #3 morbid obesity-complicates care, management, recovery, and prognosis #4 valvular heart disease-patient has mechanical aortic valve-continue warfarin and Lovenox at this time, Lovenox will be discontinued when the INR is therapeutic #5 paroxysmal [id number] is on warfarin and Lovenox at this time #6 dementia-patient will remain on memantine #7 hypothyroidism-patient is on Synthroid #8 seizure disorder-patient is on Keppra #9 chronic kidney disease stage IIIb-complicates care, management, recovery, and prognosis #10 acute debility-PT and OT will continue to see the patient, she has consented to go to a skilled care facility for temporary inpatient rehab Rhabdomyolysis was ruled out Total clinical time spent by myself addressing patient's medical issues, reviewing all of her data, and collaborating with patient's care team: 35 minutes Charges/Coding Visit Charges Inpatient E&M: 69077 Subs Hosp L2
[2023-12-29] MEDS: Enoxaparin 100 MG/ML Syringe SC (17:00)
--- NOTE | 2023-12-29 17:34 | EX.PCM.PN.GI ---
Subjective Subjective Patient with an upper endoscopy yesterday. She is not having any signs of GI bleed at this time. Largely be adenomatous polyp in the duodenum. Awaiting for pathology from duodenal biopsies. Objective Data Objective Data Vital Signs: Vital Signs Temp Pulse Resp BP Pulse Ox O2 Del Method O2 Flow Rate 97.4 F L 59 L 18 122/51 H 92 Room Air 2 12/29/23 14:00 12/29/23 14:00 12/29/23 14:00 12/29/23 14:00 12/29/23 14:00 12/29/23 14:00 12/28/23 15:36 Oxygen Flow Rate (L/min) 2 Oxygen Delivery Method Room Air Weight: 240 lb 8.389 oz Body Mass Index (BMI) 41.3 Intake & Output: Intake and Output for Last 24 Hours 12/27/23 12/28/23 12/29/23 23:59 23:59 23:59 Intake Total 742 / 742 660 / 660 648 / 648 Output Total 700 / 700 750 / 750 600 / 600 Balance 42 / 42 -90 / -90 48 / 48 Lab / Micro Data 12/29/23 07:45 12/28/23 05:09 Labs: Laboratory Results - last 24 hr 12/29/23 07:45: Hgb 9.7 L, Hct 29.7 L 12/29/23 08:26: PT 16.1 H, INR 1.3 Physical Exam Narrative alert and no apparent distress Constitutional Narrative: Patient is morbidly obese General Appearance: cooperative, well kempt and well developed Orientation / Consciousness: awake, oriented to person and oriented to place HEENT normocephalic, head/scalp atraumatic and moist oral mucous membranes Eyes PERRL, EOMs intact bilaterally and conjunctivae normal Neck supple, no JVD, thyroid normal and no carotid bruits General: trachea midline Resp normal respiratory effort, no retractions, no use of accessory muscles and clear to auscultation bilaterally Auscultation: Negative for rales, rhonchi or wheezes Cardio regular rate, regular rhythm, mechanical click is noted over the precordium, no murmurs, no rub and no gallops GI normal to inspection, nondistended, normoactive bowel sounds, soft to palpation, non-tender and non-distended Extremity no clubbing, cyanosis or edema Skin no rashes or lesions noted General Skin Exam: no breakdown Neuro CN's II-XII intact bilaterally, moves all extremities, no focal motor deficits and no sensory deficits noted Sensorium / Orientation: awake, alert, oriented to person and oriented to place Speech: speech normal Psych affect normal Assessment & Plan Assessment/Plan (1) Acute lower GI bleeding: PLAN: Plan Acute lower GI bleed ? hemoglobin is 10.7 she has not had any more bleeding, py ? Continue clear liquid diet ? Her care is complicated by the need for anticoagulation secondary to her mechanical aortic valve, will not actively reverse her INR but will also hold her Coumadin Nausea vomiting -Consistent with gastroparesis. I wanted to start on Reglan therapy addressed with mirtazapine but is a interaction with one of her medicines. Therefore we will start her on Compazine therapy scheduled Charges/Coding Visit Charges Inpatient E&M: 76574 Subs Hosp L3
[2023-12-29] MEDS: Glycerin/Hypromellose/PEG400 15 ml Bottle 1 DRP EACH EYE ×2 (19:43→21:39)
[2023-12-30] VITALS (8 sets, daily range): BP systolic 115–163; BP diastolic 51–68; PULSE 60–78; RESP 16–18; TEMP 36.4–36.8; O2SAT 95–99; BMI 42.3
[2023-12-30 06:35] LABS: International Normalized Ratio 1.3; Prothrombin Time (Protime)PT. 16.5 SECONDS (11.7-14.9)
[2023-12-30] MEDS: Levothyroxine 100 MCG Tablet PO (06:53)
[2023-12-30] MEDS: Enoxaparin 100 MG/ML Syringe SC ×2 (06:53→17:50)
[2023-12-30] MEDS: Budesonide Respules 0.5 MG/2 ML AMPUL.NEB. INHALATION ×2 (07:08→20:25)
[2023-12-30] MEDS: Pantoprazole Sodium 40 MG Tablet PO (10:05)
[2023-12-30] MEDS: Flecainide 100 MG Tablet 50 MG PO ×2 (10:05→21:35)
[2023-12-30] MEDS: levETIRAcetam 1,000 MG Tablet 1000 MG PO ×2 (10:05→21:35)
[2023-12-30] MEDS: Memantine Hydrochloride 10 MG Tablet PO ×2 (10:05→21:35)
[2023-12-30] MEDS: Metoprolol(XL)Succ 25 MG Tablet 12.5 MG PO (10:05)
[2023-12-30] MEDS: Nystatin Powder 15gm Bottle 1 APPLIC TOPICAL ×2 (10:06→21:35)
[2023-12-30] MEDS: Glycerin/Hypromellose/PEG400 15 ml Bottle 1 DRP EACH EYE ×2 (10:08→17:50)
--- NOTE | 2023-12-30 10:44 | CASEMGMT ---
Social Work This SW contacted daughter to let her know that [facility] accepted [facility]. Martine Padgett, CATERING ADMINISTRATIVE ASSISTANT, UTILITY WORKER PRODUCTION
--- NOTE | 2023-12-30 13:30 | EX.PCM.PN.GI ---
Subjective Subjective Patient is doing okay without any complaints of abdominal pain, cramping, nausea or dyspeptic symptoms at this time. Objective Data Objective Data Vital Signs: Vital Signs Temp Pulse Resp BP Pulse Ox O2 Del Method O2 Flow Rate 97.6 F L 66 18 137/68 H 97 Room Air 2 12/30/23 10:00 12/30/23 10:05 12/30/23 10:00 12/30/23 10:05 12/30/23 10:00 12/30/23 10:00 12/28/23 15:36 Oxygen Flow Rate (L/min) 2 Oxygen Delivery Method Room Air Weight: 246 lb 14.684 oz Body Mass Index (BMI) 42.3 Intake & Output: Intake and Output for Last 24 Hours 12/28/23 12/29/23 12/30/23 23:59 23:59 23:59 Intake Total 660 / 660 648 / 648 360 / 360 Output Total 750 / 750 900 / 900 650 / 650 Balance -90 / -90 -252 / -252 -290 / -290 Lab / Micro Data 12/29/23 07:45 12/28/23 05:09 Labs: Laboratory Results - last 24 hr 12/30/23 05:30: PT 16.5 H, INR 1.3 Physical Exam Narrative alert and no apparent distress Constitutional Narrative: Patient is morbidly obese General Appearance: cooperative, well kempt and well developed Orientation / Consciousness: awake, oriented to person and oriented to place HEENT normocephalic, head/scalp atraumatic and moist oral mucous membranes Eyes PERRL, EOMs intact bilaterally and conjunctivae normal Neck supple, no JVD, thyroid normal and no carotid bruits General: trachea midline Resp normal respiratory effort, no retractions, no use of accessory muscles and clear to auscultation bilaterally Auscultation: Negative for rales, rhonchi or wheezes Cardio regular rate, regular rhythm, mechanical click is noted over the precordium, no murmurs, no rub and no gallops GI normal to inspection, nondistended, normoactive bowel sounds, soft to palpation, non-tender and non-distended Extremity no clubbing, cyanosis or edema Skin no rashes or lesions noted General Skin Exam: no breakdown Neuro CN's II-XII intact bilaterally, moves all extremities, no focal motor deficits and no sensory deficits noted Sensorium / Orientation: awake, alert, oriented to person and oriented to place Speech: speech normal Psych affect normal Assessment & Plan Assessment/Plan (1) Acute lower GI bleeding: PLAN: Plan Acute lower GI bleed ? hemoglobin is 10.7 she has not had any more bleeding, py ? Continue clear liquid diet ? Her care is complicated by the need for anticoagulation secondary to her mechanical aortic valve, will not actively reverse her INR but will also hold her Coumadin Nausea vomiting -Consistent with gastroparesis. I wanted to start on Reglan therapy addressed with mirtazapine but is a interaction with one of her medicines. Therefore we will start her on Compazine therapy scheduled 12/30/2023-patient is doing well from a GI standpoint. Her hemoglobin is continued to improve from 9.2-9.7. Pathology on the large polypoid mass in her duodenum is pending. Charges/Coding Visit Charges Inpatient E&M: 14217 Subs Hosp L3
--- NOTE | 2023-12-30 13:44 | CASEMGMT ---
RUBY received a call from patient's daughter Fátima. Fátima wasn't able to talk earlier when Martine called her as she was at a DrBlade's appt. Fátima asked if patient is moved tomorrow, could transport be arranged for 6p. RUBY told her this should not be a problem. RUBY will pass along the message to the covering SW tomorrow. Plan: d/c to [facility] when approved by insurance. Maral Mitchell INFECTION CONTROL MANAGER PAULINE
--- NOTE | 2023-12-30 15:54 | PN.HOSP_ITS ---
Reason for Visit Reason for Visit: Diagnoses Acute posthemorrhagic anemia (12/25/23) Morbid (severe) obesity due to excess calories (12/25/23) Vascular dementia, unspecified severity, without behavioral disturbance, psychotic disturbance, mood disturbance, and anxiety (12/25/23) Aneurysm of the ascending aorta, without rupture (12/25/23) Hematemesis (12/25/23) Gastrointestinal hemorrhage, unspecified (12/25/23) Adverse effect of unspecified drugs, medicaments and biological substances, initial encounter (12/25/23) Body mass index [BMI] 40.0-44.9, adult (12/25/23) skilled nursing (current) use of 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s (12/25/23) Personal history of other diseases of the circulatory system (12/25/23) Personal history of peptic ulcer disease (12/25/23) Presence of prosthetic heart valve (12/25/23) Subjective Subjective Patient was seen and examined today, she is alert, her daughter is in the room, daughter wanted to know how long that she would be at the nursing home facility-I estimated a week to 10 days. Patient seemed to be okay with this. Patient's INR subtherapeutic today she remains on Lovenox and I gave her extra warfarin this morning. Objective Data Objective Data Vital Signs: Vital Signs Temp Pulse Resp BP Pulse Ox O2 Del Method O2 Flow Rate 97.6 F L 66 18 137/68 H 97 Room Air 2 12/30/23 10:00 12/30/23 10:05 12/30/23 10:00 12/30/23 10:05 12/30/23 10:00 12/30/23 14:14 12/28/23 15:36 Oxygen Flow Rate (L/min) 2 Oxygen Delivery Method Room Air Weight: 112 kg Body Mass Index (BMI) 42.3 Intake & Output: Intake and Output for Last 24 Hours 12/28/23 12/29/23 12/30/23 23:59 23:59 23:59 Intake Total 660 / 660 648 / 648 360 / 360 Output Total 750 / 750 900 / 900 650 / 650 Balance -90 / -90 -252 / -252 -290 / -290 Lab / Micro Data 12/29/23 07:45 12/28/23 05:09 Labs: Laboratory Results - last 24 hr 12/30/23 05:30: PT 16.5 H, INR 1.3 Physical Exam Narrative alert and no apparent distress Constitutional Narrative: Patient is morbidly obese General Appearance: cooperative, well kempt and well developed Orientation / Consciousness: awake, oriented to person and oriented to place HEENT normocephalic, head/scalp atraumatic and moist oral mucous membranes Eyes PERRL, EOMs intact bilaterally and conjunctivae normal Neck supple, no JVD, thyroid normal and no carotid bruits General: trachea midline Resp normal respiratory effort, no retractions, no use of accessory muscles and clear to auscultation bilaterally Auscultation: Negative for rales, rhonchi or wheezes Cardio regular rate, regular rhythm, mechanical click is noted over the precordium, no murmurs, no rub and no gallops GI normal to inspection, nondistended, normoactive bowel sounds, soft to palpation, non-tender and non-distended Extremity no clubbing, cyanosis or edema Skin no rashes or lesions noted General Skin Exam: no breakdown Neuro CN's II-XII intact bilaterally, moves all extremities, no focal motor deficits and no sensory deficits noted Sensorium / Orientation: awake, alert, oriented to person and oriented to place Speech: speech normal Psych affect normal Assessment & Plan Assessment/Plan (1) Acute posthemorrhagic anemia: (2) Hematemesis/vomiting blood: QUALIFIERS: Nausea presence: with nausea Qualified Code(s): K92.0 - Hematemesis PLAN: Plan 1. Acute upper GI bleed-etiology unclear at this point, patient has no evidence for continued GI bleeding at this time, her hemoglobin is stable. #2 acute blood loss anemia requiring blood transfusion-there is no evidence for bleeding at this time, hemoglobin appears stable #3 morbid obesity-complicates care, management, recovery, and prognosis #4 valvular heart disease-patient has mechanical aortic valve-continue warfarin and Lovenox at this time, Lovenox will be discontinued when the INR is therapeutic #5 paroxysmal [id number] is on warfarin and Lovenox at this time #6 dementia-patient will remain on memantine #7 hypothyroidism-patient is on Synthroid #8 seizure disorder-patient is on Keppra #9 chronic kidney disease stage IIIb-complicates care, management, recovery, and prognosis #10 acute debility-PT and OT will continue to see the patient, she has consented to go to a skilled care facility for temporary inpatient rehab Rhabdomyolysis was ruled out Total clinical time spent by myself addressing patient's medical issues, reviewing all of her data, and collaborating with patient's care team: 35 minutes Charges/Coding Visit Charges Inpatient E&M: 69844 Subs Hosp L2
[2023-12-30] MEDS: 0.9% Saline Lock 10 ML Syringe IV (21:37)
[2023-12-31] VITALS (10 sets, daily range): BP systolic 128–169; BP diastolic 55–76; PULSE 66–85; RESP 16; TEMP 36.4–36.8; O2SAT 95–100; BMI 41.3
[2023-12-31] MEDS: Glycerin/Hypromellose/PEG400 15 ml Bottle 1 DRP EACH EYE (01:35)
[2023-12-31] MEDS: hydrALAZINE 20 MG/ML Vial 10 MG IV ×2 (02:23→06:46)
[2023-12-31] MEDS: 0.9% Saline Lock 10 ML Syringe IV ×2 (02:26→06:46)
[2023-12-31 06:06] LABS: Absolute Lymphocyte Count 0.73 X10^3/uL (0.83-4.51); Absolute Neutrophil Count 4.4 X10^3/uL (2.0-7.7); Basophil# 0.03 X10^3/uL; Basophil% 0.5 % (0-1); Eosinophil# 0.34 X10^3/uL; Eosinophils% 5.6 % (0-5); Hematocrit 28.9 % (37-47); Hemoglobin 9.1 g/dL (12.0-15.0); Lymphocyte # 0.73 X10^3/ul (0.83-4.51); Lymphocyte % 11.9 % (19-41); Mean Corp Hgb Conc 31.5 g/dL (32-36); Mean Corpuscular Hgb 29.6 pg (27.0-32.0); Mean Corpuscular Volume 94.1 fL (81-99); Mean Platelet Vol. 10.1 fl (6.2-12.0); Monocyte# 0.58 X10^3/uL; Monocyte% 9.5 % (0-10); NRBC Flagged by Analyzer 0 % (0-5); Platelet Count 191 K/mm3 (150-450); RBC Distribution Width CV 15.4 % (11.6-14.6); RBC Distribution Width SD 51.5 fl (35.1-43.9); Red Blood Count 3.07 M/mm3 (4.2-5.4); White Blood Count 6.1 K/mm3 (4.4-11.0)
[2023-12-31 06:23] LABS: International Normalized Ratio 1.7; Prothrombin Time (Protime)PT. 19.6 SECONDS (11.7-14.9)
[2023-12-31 06:40] LABS: AST(SGOT) 31 U/L (15-37); Alanine Aminotransfer ALT/SGPT 46 U/L (13-56); Albumin, Serum 2.3 g/dL (3.2-5.0); Alkaline Phosphatase 63 U/L (45-117); Anion Gap 4 (5-15); BUN 28 mg/dL (7-18); BUN/Creat Ratio 23.7 RATIO (10-20); Calcium,Total 8.7 mg/dL (8.5-10.1); Chloride 116 mmol/L (98-107); Creatinine, Serum 1.18 mg/dL (0.55-1.02); EST Glomerular Filtration Rate 47 mL/min (>60); Est Glom Filt Rate - Afr Amer 57 mL/min (>60); Estimated Creatinine Clearance 45.97 ml/min; Globulin 2.4 g/dL (2.2-4.2); Glucose 101 mg/dL (74-106); Potassium 3.4 mmol/L (3.5-5.1); Protein, Total 4.7 g/dL (6.4-8.2); Sodium Level 145 mmol/L (136-145)
[2023-12-31] MEDS: Enoxaparin 100 MG/ML Syringe SC ×2 (06:45→16:13)
[2023-12-31] MEDS: Levothyroxine 100 MCG Tablet PO (06:46)
[2023-12-31] MEDS: Budesonide Respules 0.5 MG/2 ML AMPUL.NEB. INHALATION (07:09)
[2023-12-31] MEDS: Pantoprazole Sodium 40 MG Tablet PO (09:13)
[2023-12-31] MEDS: Flecainide 100 MG Tablet 50 MG PO (09:13)
[2023-12-31] MEDS: Memantine Hydrochloride 10 MG Tablet PO (09:13)
[2023-12-31] MEDS: levETIRAcetam 1,000 MG Tablet 1000 MG PO (09:13)
[2023-12-31] MEDS: Metoprolol(XL)Succ 25 MG Tablet 12.5 MG PO (09:13)
[2023-12-31] MEDS: Nystatin Powder 15gm Bottle 1 APPLIC TOPICAL (09:21)
--- NOTE | 2023-12-31 12:45 | PCM.PN.HOSP ---
Reason for Visit Reason for Visit: Diagnoses Acute posthemorrhagic anemia (12/25/23) Morbid (severe) obesity due to excess calories (12/25/23) Vascular dementia, unspecified severity, without behavioral disturbance, psychotic disturbance, mood disturbance, and anxiety (12/25/23) Aneurysm of the ascending aorta, without rupture (12/25/23) Hematemesis (12/25/23) Gastrointestinal hemorrhage, unspecified (12/25/23) Adverse effect of unspecified drugs, medicaments and biological substances, initial encounter (12/25/23) Body mass index [BMI] 40.0-44.9, adult (12/25/23) [facility] (current) use of 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s (12/25/23) Personal history of other diseases of the circulatory system (12/25/23) Personal history of peptic ulcer disease (12/25/23) Presence of prosthetic heart valve (12/25/23) Subjective Subjective Patient was seen and examined today, she voices no complaints to this examiner. We are currently awaiting approval for [facility]. Patient's INR was subtherapeutic this morning, I wrote for extra warfarin and a repeat INR at 3:00 this afternoon. Objective Data Objective Data Vital Signs: Vital Signs Temp Pulse Resp BP Pulse Ox O2 Del Method O2 Flow Rate 97.7 F L 82 16 128/63 H 97 Room Air 2 12/31/23 09:09 12/31/23 09:13 12/31/23 09:09 12/31/23 09:09 12/31/23 09:09 12/31/23 09:09 12/28/23 15:36 Oxygen Flow Rate (L/min) 2 Oxygen Delivery Method Room Air Weight: 109.4 kg Body Mass Index (BMI) 41.3 Intake & Output: Intake and Output for Last 24 Hours 12/29/23 12/30/23 12/31/23 23:59 23:59 23:59 Intake Total 648 / 648 750 / 750 50 / 50 Output Total 900 / 900 650 / 650 Balance -252 / -252 100 / 100 50 / 50 Lab / Micro Data 12/31/23 05:21 12/31/23 05:21 Labs: Laboratory Results - last 24 hr 12/31/23 05:21: WBC 6.1, RBC 3.07 L, Hgb 9.1 L, Hct 28.9 L, MCV 94.1, MCH 29.6, MCHC 31.5 L, RDW Std Deviation 51.5 H, RDW Coeff of Pravin 15.4 H, Plt Count 191, MPV 10.1, Immature Gran % (Auto) 0.500, Neut % (Auto) 72.0 H, Lymph % (Auto) 11.9 L, [place] % (Auto) 9.5, Eos % (Auto) 5.6 H, Baso % (Auto) 0.5, Absolute Neuts (auto) 4.4, Absolute Lymphs (auto) 0.73 L, Nucleated RBC % 0, PT 19.6 H, INR 1.7, Sodium 145, Potassium 3.4 L, Chloride 116 H, Carbon Dioxide 26.0, Anion Gap 4 L, BUN 28 H, Creatinine 1.18 H, Estim Creat Clear Calc 45.97, Est GFR (MDRD) Af Amer 57 L, Est GFR (MDRD) Non-Af 47 L, BUN/Creatinine Ratio 23.7 H, Glucose 101, Calcium 8.7, Total Bilirubin 0.30, AST 31, ALT 46, Alkaline Phosphatase 63, Total Protein 4.7 L, Albumin 2.3 L, Globulin 2.4, Albumin/Globulin Ratio 1.0 Physical Exam Narrative alert and no apparent distress Constitutional Narrative: Patient is morbidly obese General Appearance: cooperative, well kempt and well developed Orientation / Consciousness: awake, oriented to person and oriented to place HEENT normocephalic, head/scalp atraumatic and moist oral mucous membranes Eyes PERRL, EOMs intact bilaterally and conjunctivae normal Neck supple, no JVD, thyroid normal and no carotid bruits General: trachea midline Resp normal respiratory effort, no retractions, no use of accessory muscles and clear to auscultation bilaterally Auscultation: Negative for rales, rhonchi or wheezes Cardio regular rate, regular rhythm, mechanical click is noted over the precordium, no murmurs, no rub and no gallops GI normal to inspection, nondistended, normoactive bowel sounds, soft to palpation, non-tender and non-distended Extremity no clubbing, cyanosis or edema Skin no rashes or lesions noted General Skin Exam: no breakdown Neuro CN's II-XII intact bilaterally, moves all extremities, no focal motor deficits and no sensory deficits noted Sensorium / Orientation: awake, alert, oriented to person and oriented to place Speech: speech normal Psych affect normal Assessment & Plan Assessment/Plan (1) Acute posthemorrhagic anemia: (2) Hematemesis/vomiting blood: QUALIFIERS: Nausea presence: with nausea Qualified Code(s): K92.0 - Hematemesis PLAN: Plan 1. Acute upper GI bleed-etiology unclear at this point, patient has no evidence for continued GI bleeding at this time #2 acute blood loss anemia requiring blood transfusion-there is no evidence for bleeding at this time #3 morbid obesity-complicates care, management, recovery, and prognosis #4 valvular heart disease-patient has mechanical aortic valve-continue warfarin and Lovenox at this time, Lovenox will be discontinued when the INR is therapeutic #5 paroxysmal [id number] is on warfarin and Lovenox at this time #6 dementia-patient will remain on memantine #7 hypothyroidism-patient is on Synthroid #8 seizure disorder-patient is on Keppra #9 chronic kidney disease stage IIIb-complicates care, management, recovery, and prognosis #10 acute debility-PT and OT will continue to see the patient, she has consented to go to a skilled care facility for temporary inpatient rehab Rhabdomyolysis was ruled out Total clinical time spent by myself addressing patient's medical issues, reviewing all of her data, and collaborating with patient's care team: 35 minutes Charges/Coding Visit Charges Inpatient E&M: 16339 Subs Hosp L2
--- NOTE | 2023-12-31 14:08 | CASEMGMT ---
Social Work Precert has been obtained.? Physician updated and pt is ready for discharge today.? 7000 convalescent form completed in [facility]. DCA notified of discharge time. Disposition:?[facility], skilled level of care under convalescent stay. AUDRA Mata
--- NOTE | 2023-12-31 14:17 | CASEMGMT ---
Discharge Planning Jarad Kimball has obtained auth to admit. SW updated. Andreina Millan DC Planning Asst.
--- NOTE | 2023-12-31 14:36 | TREXTCAR_ITS ---
Diet Diet Order/Speech Therapy: 12/28/23 17:10 Diet: Regular - General Routine Orders/Code Status Routine Lab Work: CBC (in one week) and - (INR daily for 5 days starting 01/01/24, maintain INR between 2 and 3.5) Code Status: Full Code Wound(s) BUE: Wound Type: Skin Tear Therapies Weight Bearing: Full weight bearing Physical Therapy: Eval and Treat Occupational Therapy: Eval and Treat Problem/Diagnosis (1) Acute posthemorrhagic anemia: Status: Acute Code(s): D62 - Acute posthemorrhagic anemia (2) Hematemesis/vomiting blood: Status: Acute Code(s): K92.0 - Hematemesis Plan 1. Acute upper GI bleed-etiology unclear at this point, patient has no evidence for continued GI bleeding at this time #2 acute blood loss anemia requiring blood transfusion-there is no evidence for bleeding at this time #3 morbid obesity-complicates care, management, recovery, and prognosis #4 valvular heart disease-patient has mechanical aortic valve-continue warfarin and Lovenox at this time, Lovenox will be discontinued when the INR is therapeut ic-2-3.5 #5 paroxysmal [id number] is on warfarin and Lovenox at this time #6 dementia-patient will remain on memantine #7 hypothyroidism-patient is on Synthroid #8 seizure disorder-patient is on Keppra #9 chronic kidney disease stage IIIb-complicates care, management, recovery, and prognosis #10 acute debility-PT and OT will continue to see the patient, she has consented to go to a skilled care facility for temporary inpatient rehab Rhabdomyolysis was ruled out Total clinical time spent by myself addressing patient's medical issues, reviewing all of her data, and collaborating with patient's care team: 35 minutes Allergies/Procedures Done in Hospital Allergies celecoxib (From Celebrex) Allergy (Severe, Verified 10/08/23 13:35) Hives, swelling, difficulty breathing Sulfa (Sulfonamide Antibiotics) Allergy (Severe, Verified 10/08/23 13:35) Hives, swelling, difficulty breathing gemfibrozil Adverse Reaction (Intermediate, Verified 10/08/23 13:35) Nausea,myalgias Procedures: EGD Type of Care/Length of Stay Estimated LOS: Convalescent Care Less Than 30 days Type of Care Needed: Skilled Rehab Potential: Good Prognosis: Good Additional Orders/Day of Discharge H&P will serve as current which was dated: 12/25/23 Day of Discharge: 12/31/23 Discharge Plan Admission Admit Date/Time: 12/25/23 20:19 Primary Reason for Your Visit: hematemesis, upper GI bleed Attending Provider: Dennis Barrett Primary Care Provider: Kishore Ricci Consulting Providers: Stefan Leach; Rodrick Ram Instructions Additional Instructions / Restrictions: Continue subcu Lovenox and Coumadin, monitor INR daily x 5 days, stop Lovenox usage when INR between 2 and 3.5 Discharge Orders/Prescriptions Prescriptions: New warfarin [Jantoven] 5 mg Tablet 5 mg PO DINNER Qty: 0 0RF budesonide 0.5 mg/2 mL Suspension For Nebulization 0.5 mg inhalation Q12H.RT Qty: 0 0RF nystatin [Nyamyc] 100,000 unit/gram Powder 1 applic topical BID Qty: 0 0RF Protocol: *Topical Application Instructions APPLICATION INSTRUCTIONS: groin Artificial Tears([id number]) 1-0.2-0.2 % Drops 1 drp EACH EYE Q1H PRN (Reason: DRY EYES) Qty: 0 0RF enoxaparin [Lovenox] 100 mg/mL syringe 100 mg subcut Q12H Qty: 10 0RF Continued allopurinol 100 mg tablet 100 mg PO DAILY Qty: 90 levothyroxine 100 mcg tablet 100 mcg PO DAILY Qty: 90 levetiracetam [Keppra] 1,000 mg tablet 1,000 mg PO BID oxcarbazepine 150 mg tablet 150 mg PO BID metoprolol succinate 25 mg tablet extended release 24 hr 12.5 mg PO DAILY Qty: 90 nitroglycerin [Nitrostat] 0.4 mg tablet, sublingual 0.4 mg sublingual Q5M PRN (Reason: CHEST PAIN ) Qty: 25 3RF Rx Instructions: do not exceed 3 doses per episode Gemtesa 75 mg tablet 75 mg PO DAILY memantine 10 mg tablet 10 mg PO BID duloxetine 60 mg capsule,delayed release(DR/EC) 60 mg PO DAILY cholecalciferol (vitamin D3) [D3-2000] 50 mcg (2,000 unit) capsule 2,000 unit PO DAILY omeprazole 40 mg capsule,delayed release(DR/EC) 40 mg PO DAILY rosuvastatin 40 mg tablet 40 mg PO QHS 30 Days Qty: 30 4RF multivitamin [Daily Multi-Vitamin] Tablet 1 tab PO DAILY flecainide 100 mg Tablet 50 mg PO BID polysaccharide iron complex [Ferrex 150] 150 mg iron Capsule 150 mg PO DAILY 30 Days Qty: 30 0RF furosemide 40 mg tablet 40 mg PO DAILY PRN (Reason: edema) Qty: 90 3RF ondansetron HCl 4 mg tablet 4 mg PO TID PRN (Reason: nausea and vomiting) Qty: 20 0RF Discontinued topiramate [Topamax] 50 mg tablet 50 mg PO QHS nortriptyline 50 mg capsule 100 mg PO 2000 metaxalone 400 mg tablet 400 mg PO BID ascorbic acid (vitamin C) 500 mg tablet 500 mg PO BID Qty: 60 2RF hydrocodone-acetaminophen 5-325 mg tablet 1 tab PO Q12H warfarin 4 mg tablet 4 mg PO MOEUTHJOSE CRUZ Protocol: Dose Management Condition: Wednesday Dose/Route: 4 mg Instruction: 1 x 4 mg tablet Condition: Wednesday Dose/Route: 4 mg Instruction: 1 x 4 mg tablet Condition: Wednesday Dose/Route: 4 mg Instruction: 1 x 4 mg tablet Condition: Wednesday Dose/Route: 6 mg Instruction: 1 x 6 mg tablet Condition: Dose/Route: 4 mg Instruction: 1 x 4 mg tablet Condition: Wednesday Dose/Route: 4 mg Instruction: 1 x 4 mg tablet Condition: Wednesday Dose/Route: 4 mg Instruction: 1 x 4 mg tablet Protocol Text: Adjustment Start Date: Wednesday12/10/23 INR Value: 2.8 INR Date: 12/10/23 Recheck Date: 12/31/23 Patient Comments: family states shes supposed to take none on 07/07/23 and 07/08/23 and start back on the depending on INR Rx Instructions: daily or as directed warfarin [] 6 mg Tablet 6 mg PO WE Protocol: Dose Management Condition: Wednesday Dose/Route: 4 mg Instruction: 1 x 4 mg tablet Condition: Wednesday Dose/Route: 4 mg Instruction: 1 x 4 mg tablet Condition: Wednesday Dose/Route: 4 mg Instruction: 1 x 4 mg tablet Condition: Wednesday Dose/Route: 6 mg Instruction: 1 x 6 mg tablet Condition: Dose/Route: 4 mg Instruction: 1 x 4 mg tablet Condition: Wednesday Dose/Route: 4 mg Instruction: 1 x 4 mg tablet Condition: Wednesday Dose/Route: 4 mg Instruction: 1 x 4 mg tablet Protocol Text: Adjustment Start Date: Wednesday12/10/23 INR Value: 2.8 INR Date: 12/10/23 Recheck Date: 12/31/23 Patient Comments: family states shes supposed to take none on 07/07/23 and 07/08/23 and start back on the depending on INR Rx Instructions: Keep INR between 2.5-3.5, average 3.0. Hold if INR more than 3.5 sucralfate 1 gram Tablet 1 g PO 0700,2200 30 Days Qty: 60 0RF Referrals / Follow Up: Kishore Ricci MD [Primary Care Provider] - Disposition Disposition (needs filled in before D/C Order can be placed): Care Home Facility (2) Hematemesis/vomiting blood Qualifiers: Nausea presence: with nausea Qualified Code(s): K92.0 - Hematemesis
--- NOTE | 2023-12-31 15:00 | NURSING ---
report called to Jarad BOWEN
[2023-12-31 15:12] LABS: International Normalized Ratio 1.8; Prothrombin Time (Protime)PT. 20.9 SECONDS (11.7-14.9)
--- NOTE | 2023-12-31 15:34 | PCM.DC.SUM ---
Providers Date of Admission: 12/25/23 Date of Discharge: 12/31/23 Primary Care Physician: Dr. Kishore Ricci MD Consultations 12/25/23 20:36 Consult: Gastroenterology Routine Consulting Provider: [facility] Reason for Consult: Dark Vomit; worrisome for UGIB. EMERGENT Consult: No MD Notified: Yes Date Notified: 12/26/23 Time Notified: 06:55 Method of Notification: Text Reason For Visit: RHABDOMYOLYSIS EFFIE GI BLEED Diagnosis Discharge Diagnosis (1) Acute posthemorrhagic anemia: Status: Acute Code(s): D62 - Acute posthemorrhagic anemia (2) Hematemesis/vomiting blood: Status: Acute Code(s): K92.0 - Hematemesis Qualifiers: Nausea presence: with nausea Qualified Code(s): K92.0 - Hematemesis Plan 1. Acute upper GI bleed-etiology unclear at this point, patient has no evidence for continued GI bleeding at this time #2 acute blood loss anemia requiring blood transfusion-there is no evidence for bleeding at this time #3 morbid obesity-complicates care, management, recovery, and prognosis #4 valvular heart disease-patient has mechanical aortic valve-continue warfarin and Lovenox at this time, Lovenox will be discontinued when the INR is [id number] #5 paroxysmal [id number]-elh-[id number] is on warfarin and Lovenox at this time #6 dementia-patient will remain on memantine #7 hypothyroidism-patient is on Synthroid #8 seizure disorder-patient is on Keppra #9 chronic kidney disease stage IIIb-complicates care, management, recovery, and prognosis #10 acute debility-PT and OT will continue to see the patient, she has consented to go to a skilled care facility for temporary inpatient rehab #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 Rhabdomyolysis was ruled out Total clinical time spent by myself addressing patient's medical issues, reviewing all of her data, and collaborating with patient's care team: 35 minutes Medications at Discharge Home Medications allopurinol 100 mg tablet 100 mg PO DAILY GOUT #90 tabs 02/22/19 levothyroxine 100 mcg tablet 100 mcg PO DAILY THYROID #90 tabs 02/22/19 levetiracetam 1,000 mg tablet (Keppra) 1,000 mg PO BID EPILEPSY 03/25/22 oxcarbazepine 150 mg tablet 150 mg PO BID EPILESPSY 09/12/21 metoprolol succinate 25 mg tablet,extended release 24 hr 12.5 mg PO DAILY HEART #90 tabs 11/25/21 memantine 10 mg tablet 10 mg PO BID MEMORY 02/22/23 vibegron 75 mg tablet (Gemtesa) 75 mg PO DAILY OVERACTIVE BLADDER 02/22/23 duloxetine 60 mg capsule,delayed release 60 mg PO DAILY DEPRESSION 03/17/23 cholecalciferol (vitamin D3) 50 mcg (2,000 unit) capsule (D3-2000) 2,000 unit PO DAILY vitamin 06/20/23 omeprazole 40 mg capsule,delayed release 40 mg PO DAILY reflux 06/20/23 rosuvastatin 40 mg tablet 40 mg PO QHS cholesterol 1 month #30 tabs 06/22/23 polysaccharide iron complex 150 mg iron capsule (Ferrex) 150 mg PO DAILY supplement 30 days #30 caps 07/27/23 nitroglycerin 0.4 mg sublingual tablet (Nitrostat) 0.4 mg sublingual Q5M PRN CHEST PAIN #25 tabs 10/08/23 furosemide 40 mg tablet 40 mg PO DAILY PRN edema #90 tabs 10/27/23 ondansetron HCl 4 mg tablet 4 mg PO TID PRN nausea and vomiting #20 tabs 12/21/23 flecainide 100 mg tablet 50 mg PO BID heart rate 12/25/23 multivitamin (Daily Multi-Vitamin tablet) 1 tab PO DAILY supplement 12/25/23 budesonide 0.5 mg/2 mL suspension for nebulization 0.5 mg (2 mL) inhalation Q12H.RT #0 mL 12/31/23 enoxaparin 100 mg/mL subcutaneous syringe (Lovenox) 100 mg subcut Q12H #10 mL 12/31/23 nystatin 100,000 unit/gram topical powder (Nyamyc) 1 applic topical BID #0 grams 12/31/23 peg [id number] 1 %-0.2 %-0.2 % eye drops (Artificial Tears ([id number])) 1 drp EACH EYE Q1H PRN DRY EYES #0 mL 12/31/23 warfarin 5 mg tablet (Jantoven) 5 mg PO DINNER #0 tabs 10/18/24 Hospital Course Operations None Procedures Blood transfusion and EGD Summary of Care Provided Minutes Spent on Discharge: 32 Hospital Course: This 78-year-old white female was admitted to PCU at [facility] after being found down at her home on the floor with dark vomit around her, she had been taken to [facility] ER for evaluation and a request was made to transport her to [facility] for further care.. Patient had a seizure history and was taking Keppra, she also has mechanical heart valve and was on Coumadin. Labs which were obtained showed elevated CPK at 1200, INR was 3, hemoglobin was 9.9. Patient was given IV Protonix and fluids while in the ER and transported to [facility] PCU. Patient's lab was monitored, she required 2 units of packed red blood cells to be transfused and was given vitamin K and her Coumadin was stopped temporarily. She was seen in consultation by gastroenterology, they performed an EGD which was remarkable for a duodenal bulb mass which appeared similar to a polyp, biopsies were taken of this mass. Patient was seen by physical therapy and OT, it was recommended that she go to a halfway facility for short-term inpatient rehab services. Patient consented to go to [facility] TCU. On 12/31/2023, patient was seen and examined:alert and no apparent distress Constitutional Narrative: Patient is morbidly obese General Appearance: cooperative, well kempt and well developed Orientation / Consciousness: awake, oriented to person and oriented to place HEENT normocephalic, head/scalp atraumatic and moist oral mucous membranes Eyes PERRL, EOMs intact bilaterally and conjunctivae normal Neck supple, no JVD, thyroid normal and no carotid bruits General: trachea midline Resp normal respiratory effort, no retractions, no use of accessory muscles and clear to auscultation bilaterally Auscultation: Negative for rales, rhonchi or wheezes Cardio regular rate, regular rhythm, mechanical click is noted over the precordium, no murmurs, no rub and no gallops GI normal to inspection, nondistended, normoactive bowel sounds, soft to palpation, non-tender and non-distended Extremity no clubbing, cyanosis or edema Skin no rashes or lesions noted General Skin Exam: no breakdown Neuro CN's II-XII intact bilaterally, moves all extremities, no focal motor deficits and no sensory deficits noted Sensorium / Orientation: awake, alert, oriented to person and oriented to place Speech: speech normal Psych affect normal Patient's biopsy report of her duodenal bulb mass resulted and showing a carcinoid. I talked to the patient's PCP on 01/02/2024 to make him aware of this and he already knew this. He said he would get in touch with the patient to schedule follow-up. Patient was discharged in stable condition on 12/31/2023. Weight / BMI Weight Weight: 109.4 kg Body Mass Index (BMI) 41.3 ABG / Lab / Microbiology Data 12/31/23 05:21 12/31/23 05:21 Laboratory: Laboratory Results - last 24 hr 12/31/23 05:21: WBC 6.1, RBC 3.07 L, Hgb 9.1 L, Hct 28.9 L, MCV 94.1, MCH 29.6, MCHC 31.5 L, RDW Std Deviation 51.5 H, RDW Coeff of Pravin 15.4 H, Plt Count 191, MPV 10.1, Immature Gran % (Auto) 0.500, Neut % (Auto) 72.0 H, Lymph % (Auto) 11.9 L, Mccracken % (Auto) 9.5, Eos % (Auto) 5.6 H, Baso % (Auto) 0.5, Absolute Neuts (auto) 4.4, Absolute Lymphs (auto) 0.73 L, Nucleated RBC % 0, PT 19.6 H, INR 1.7, Sodium 145, Potassium 3.4 L, Chloride 116 H, Carbon Dioxide 26.0, Anion Gap 4 L, BUN 28 H, Creatinine 1.18 H, Estim Creat Clear Calc 45.97, Est GFR (MDRD) Af Amer 57 L, Est GFR (MDRD) Non-Af 47 L, BUN/Creatinine Ratio 23.7 H, Glucose 101, Calcium 8.7, Total Bilirubin 0.30, AST 31, ALT 46, Alkaline Phosphatase 63, Total Protein 4.7 L, Albumin 2.3 L, Globulin 2.4, Albumin/Globulin Ratio 1.0 12/31/23 14:50: PT 20.9 H, INR 1.8 Meaningful Use Info Meaningful Use Meaningful Use Diagnoses (Choose all that apply): None applicable Ischemic Stroke Statin Dosing Therapy Reference: STATIN DOSE THERAPY REFERENCE: * Patients > 75 years receive moderate or high dose statin therapy. * Patients 75 years or YOUNGER should receive HIGH intensity statin dose unless contraindicated. You will be required to document reason for non-treatment if statin daily dose does not meet guidelines. HIGH DOSE STATIN THERAPY DAILY Atorvastatin > than or = to 40 mg Rosuvastatin > than or = to 20 mg Amlodipine + Atorvastatin > than or = to 2.5/40 mg Ezetimibe + Simvastatin 10/80 mg Simvastatin 80mg Discharge Plan Admission Admit Date/Time: 12/25/23 20:19 Primary Reason for Your Visit: hematemesis, upper GI bleed Attending Provider: Dennis Barrett Primary Care Provider: Kishore Ricci Consulting Providers: Stefan Leach; Rodrick Ram Instructions Additional Instructions / Restrictions: Continue subcu Lovenox and Coumadin, monitor INR daily x 5 days, stop Lovenox usage when INR between 2 and 3.5 Discharge Orders/Prescriptions Prescriptions: New warfarin [Jantoven] 5 mg Tablet 5 mg PO DINNER Qty: 0 0RF budesonide 0.5 mg/2 mL Suspension For Nebulization 0.5 mg inhalation Q12H.RT Qty: 0 0RF nystatin [Nyamyc] 100,000 unit/gram Powder 1 applic topical BID Qty: 0 0RF Protocol: *Topical Application Instructions APPLICATION INSTRUCTIONS: groin Artificial Tears([id number]) 1-0.2-0.2 % Drops 1 drp EACH EYE Q1H PRN (Reason: DRY EYES) Qty: 0 0RF enoxaparin [Lovenox] 100 mg/mL syringe 100 mg subcut Q12H Qty: 10 0RF Continued allopurinol 100 mg tablet 100 mg PO DAILY Qty: 90 levothyroxine 100 mcg tablet 100 mcg PO DAILY Qty: 90 levetiracetam [Keppra] 1,000 mg tablet 1,000 mg PO BID oxcarbazepine 150 mg tablet 150 mg PO BID metoprolol succinate 25 mg tablet extended release 24 hr 12.5 mg PO DAILY Qty: 90 nitroglycerin [Nitrostat] 0.4 mg tablet, sublingual 0.4 mg sublingual Q5M PRN (Reason: CHEST PAIN ) Qty: 25 3RF Rx Instructions: do not exceed 3 doses per episode Gemtesa 75 mg tablet 75 mg PO DAILY memantine 10 mg tablet 10 mg PO BID duloxetine 60 mg capsule,delayed release(DR/EC) 60 mg PO DAILY cholecalciferol (vitamin D3) [D3-2000] 50 mcg (2,000 unit) capsule 2,000 unit PO DAILY omeprazole 40 mg capsule,delayed release(DR/EC) 40 mg PO DAILY rosuvastatin 40 mg tablet 40 mg PO QHS 30 Days Qty: 30 4RF multivitamin [Daily Multi-Vitamin] Tablet 1 tab PO DAILY flecainide 100 mg Tablet 50 mg PO BID polysaccharide iron complex [Ferrex 150] 150 mg iron Capsule 150 mg PO DAILY 30 Days Qty: 30 0RF furosemide 40 mg tablet 40 mg PO DAILY PRN (Reason: edema) Qty: 90 3RF ondansetron HCl 4 mg tablet 4 mg PO TID PRN (Reason: nausea and vomiting) Qty: 20 0RF Discontinued topiramate [Topamax] 50 mg tablet 50 mg PO QHS nortriptyline 50 mg capsule 100 mg PO 2000 metaxalone 400 mg tablet 400 mg PO BID ascorbic acid (vitamin C) 500 mg tablet 500 mg PO BID Qty: 60 2RF hydrocodone-acetaminophen 5-325 mg tablet 1 tab PO Q12H warfarin 4 mg tablet 4 mg PO LEIGHTUTHFRSA Protocol: Dose Management Condition: Wednesday Dose/Route: 4 mg Instruction: 1 x 4 mg tablet Condition: Wednesday Dose/Route: 4 mg Instruction: 1 x 4 mg tablet Condition: Wednesday Dose/Route: 4 mg Instruction: 1 x 4 mg tablet Condition: Wednesday Dose/Route: 6 mg Instruction: 1 x 6 mg tablet Condition: Dose/Route: 4 mg Instruction: 1 x 4 mg tablet Condition: Wednesday Dose/Route: 4 mg Instruction: 1 x 4 mg tablet Condition: Wednesday Dose/Route: 4 mg Instruction: 1 x 4 mg tablet Protocol Text: Adjustment Start Date: Wednesday12/10/23 INR Value: 2.8 INR Date: 12/10/23 Recheck Date: 12/31/23 Patient Comments: family states shes supposed to take none on 07/07/23 and 07/08/23 and start back on the depending on INR Rx Instructions: daily or as directed warfarin [Jantoven] 6 mg Tablet 6 mg PO WE Protocol: Dose Management Condition: Wednesday Dose/Route: 4 mg Instruction: 1 x 4 mg tablet Condition: Wednesday Dose/Route: 4 mg Instruction: 1 x 4 mg tablet Condition: Wednesday Dose/Route: 4 mg Instruction: 1 x 4 mg tablet Condition: Wednesday Dose/Route: 6 mg Instruction: 1 x 6 mg tablet Condition: Dose/Route: 4 mg Instruction: 1 x 4 mg tablet Condition: Wednesday Dose/Route: 4 mg Instruction: 1 x 4 mg tablet Condition: Wednesday Dose/Route: 4 mg Instruction: 1 x 4 mg tablet Protocol Text: Adjustment Start Date: Wednesday12/10/23 INR Value: 2.8 INR Date: 12/10/23 Recheck Date: 12/31/23 Patient Comments: family states shes supposed to take none on 07/07/23 and 07/08/23 and start back on the depending on INR Rx Instructions: Keep INR between 2.5-3.5, average 3.0. Hold if INR more than 3.5 sucralfate 1 gram Tablet 1 g PO 0700,2200 30 Days Qty: 60 0RF Referrals / Follow Up: Kishore Ricci MD [Primary Care Provider] - Disposition Disposition (needs filled in before D/C Order can be placed): Group Home Facility Charges/Coding Visit Charges Inpatient E&M: 51528 Disch Hosp >30min
--- NOTE | 2023-12-31 15:40 | CASEMGMT ---
Social Work- Precert has been obtained.? Physician updated and pt is ready for discharge today.?DCA advised. AUDRA Mata
--- NOTE | 2023-12-31 15:43 | CASEMGMT ---
Discharge Planning Discharge orders, signed med list, and transport time sent to [facility]. Physicians will transport patient by wheelchair at 6p. Nursing, SW, and patients daughter (Fátima) updated. Andreina Millan DC Planning Asst.
== END 2023-12-31 17:12 | disposition skilled nursing facility (03) | DRG 378 ==
PROVIDERS: Anesthesiology; Family Medicine; Internal Medicine; Internal Medicine Gastroenterology; Admitting Provider Internal Medicine; PCP Family Medicine; Referring Provider Internal Medicine; Visit Provider Internal Medicine
PROC: 0DJ08ZZ Inspection of Upper Intestinal Tract, Via Natural or Artificial Opening Endoscopic (ICD-10-PCS; CPT 43235; principal; 2023-12-28 15:40)
DX: K92.2 Gastrointestinal hemorrhage, unspecified (principal); C7A.010 Malignant carcinoid tumor of the duodenum; I13.0 Hypertensive heart and chronic kidney disease with heart failure and stage 1 through stage 4 chronic kidney disease, or unspecified chronic kidney disease; I48.20 Chronic atrial fibrillation, unspecified; Z68.41 Body mass index [BMI] 40.0-44.9, adult; D62 Acute posthemorrhagic anemia; G40.909 Epilepsy, unspecified, not intractable, without status epilepticus; E03.9 Hypothyroidism, unspecified; E66.01 Morbid (severe) obesity due to excess calories; F01.50 Vascular dementia, unspecified severity, without behavioral disturbance, psychotic disturbance, mood disturbance, and anxiety; N18.32 Chronic kidney disease, stage 3b; F32.A Depression, unspecified; I50.9 Heart failure, unspecified; I25.10 Atherosclerotic heart disease of native coronary artery without angina pectoris; G47.33 Obstructive sleep apnea (adult) (pediatric); I25.2 Old myocardial infarction; E78.5 Hyperlipidemia, unspecified; K92.0 Hematemesis; N32.81 Overactive bladder; T45.515A Adverse effect of 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s, initial encounter; Z86.73 Personal history of transient ischemic attack (TIA), and cerebral infarction without residual deficits; Z79.899 Other long term (current) drug therapy
CPT/HCPCS: 36415; 70450; 80048; 80053; 80076; 82550; 82962; 83036; 83735; 84100; 84443; 85014; 85018; 85025; 85027; 85610; 85730; 86850; 86900; 86901; 86920; 86922; 88305; 88341; 88342; 93005; 94640; 94668; 97116; 97162; 97166; 97530; 97535; 99252; J7120; P9016; A4216; G0463; J2405; J3490

== ENCOUNTER → 2024-01-07 | Outpatient (CLI) | payer MEDICARE, OTHER, SELFPAY ==
[2024-01-07 11:03] LABS: International Normalized Ratio 1.6; Prothrombin Time (Protime)PT. 19.3 SECONDS (11.7-14.9)
== END | disposition home or self-care (01) ==
LOC: LAB 09:33
PROVIDERS: PCP Family Medicine; Visit Provider Internal Medicine Cardiovascular Disease
DX: Z79.01 Long term (current) use of 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s (principal)
CPT/HCPCS: 36415; 85610

== ENCOUNTER → 2024-01-10 | Outpatient (CLI) | payer MEDICARE, OTHER, SELFPAY ==
[2024-01-10 11:07] LABS: International Normalized Ratio 3.2; Prothrombin Time (Protime)PT. 32.4 SECONDS (11.7-14.9)
== END | disposition home or self-care (01) ==
LOC: LAB 08:42
PROVIDERS: PCP Family Medicine; Visit Provider Internal Medicine Cardiovascular Disease
DX: F01.50 Vascular dementia, unspecified severity, without behavioral disturbance, psychotic disturbance, mood disturbance, and anxiety (principal); Z95.2 Presence of prosthetic heart valve; Z79.01 Long term (current) use of 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s
CPT/HCPCS: 36415; 85610

== ENCOUNTER → 2024-01-17 | Outpatient (CLI) | payer MEDICARE, OTHER, SELFPAY ==
[2024-01-17 11:36] LABS: Prothrombin Time (Protime)PT. 50.1 SECONDS (11.7-14.9)
[2024-01-17 11:59] LABS: International Normalized Ratio 5.6
== END | disposition home or self-care (01) ==
LOC: LAB 08:38
PROVIDERS: PCP Family Medicine; Visit Provider Internal Medicine Cardiovascular Disease
DX: F01.50 Vascular dementia, unspecified severity, without behavioral disturbance, psychotic disturbance, mood disturbance, and anxiety (principal); Z95.2 Presence of prosthetic heart valve; Z79.01 Long term (current) use of 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s
CPT/HCPCS: 36415; 85610

== ENCOUNTER → 2024-01-21 | Outpatient (CLI) | payer MEDICARE, OTHER, SELFPAY ==
[2024-01-21 11:23] LABS: International Normalized Ratio 3.4; Prothrombin Time (Protime)PT. 33.9 SECONDS (11.7-14.9)
== END | disposition home or self-care (01) ==
LOC: LAB 09:11
PROVIDERS: PCP Family Medicine; Visit Provider Internal Medicine Cardiovascular Disease
DX: F01.50 Vascular dementia, unspecified severity, without behavioral disturbance, psychotic disturbance, mood disturbance, and anxiety (principal); Z95.2 Presence of prosthetic heart valve; Z79.01 Long term (current) use of 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s
CPT/HCPCS: 36415; 85610

== ENCOUNTER → 2024-01-26 | Outpatient (CLI) | payer MEDICARE, OTHER, SELFPAY ==
[2024-01-26 18:53] LABS: Anion Gap 5 (5-15); BUN 31 mg/dL (7-18); BUN/Creat Ratio 18.3 RATIO (10-20); CPK Total, Creatine Kinase 49 U/L (26-192); Calcium,Total 9.2 mg/dL (8.5-10.1); Chloride 113 mmol/L (98-107); Creatinine, Serum 1.69 mg/dL (0.55-1.02); EST Glomerular Filtration Rate 31 mL/min (>60); Est Glom Filt Rate - Afr Amer 37 mL/min (>60); Glucose 91 mg/dL (74-106); Potassium 4.2 mmol/L (3.5-5.1); Sodium Level 141 mmol/L (136-145)
== END | disposition home or self-care (01) ==
LOC: MFPLAB 14:40
PROVIDERS: PCP Family Medicine; Referring Provider Family Medicine; Visit Provider Family Medicine
DX: M62.82 Rhabdomyolysis (principal)
CPT/HCPCS: 36415; 80048; 82550

== ENCOUNTER → 2024-01-27 | Outpatient (CLI) | payer MEDICARE, OTHER, SELFPAY ==
[2024-01-27 11:37] LABS: International Normalized Ratio 3.5
== END | disposition home or self-care (01) ==
LOC: LAB 08:50
PROVIDERS: PCP Family Medicine; Visit Provider Internal Medicine Cardiovascular Disease
DX: Z79.01 Long term (current) use of 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s (principal)
CPT/HCPCS: 36415; 85610

== ENCOUNTER → 2024-02-03 | Outpatient (CLI) | payer MEDICARE, OTHER, SELFPAY ==
[2024-02-03 11:38] LABS: International Normalized Ratio 3.4
== END | disposition home or self-care (01) ==
LOC: LAB 09:03
PROVIDERS: PCP Family Medicine; Visit Provider Internal Medicine Cardiovascular Disease
DX: Z79.01 Long term (current) use of 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s (principal)
CPT/HCPCS: 36415; 85610

== ENCOUNTER → 2024-02-24 | Outpatient (CLI) | payer MEDICARE, OTHER, SELFPAY ==
[2024-02-24 11:11] LABS: Prothrombin Time (Protime)PT. 22.5 SECONDS (11.7-14.9)
== END | disposition home or self-care (01) ==
LOC: LAB 09:10
PROVIDERS: PCP Family Medicine; Visit Provider Internal Medicine Cardiovascular Disease
DX: F01.50 Vascular dementia, unspecified severity, without behavioral disturbance, psychotic disturbance, mood disturbance, and anxiety (principal); Z95.2 Presence of prosthetic heart valve; Z79.01 Long term (current) use of 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s
CPT/HCPCS: 36415; 85610

== ENCOUNTER → 2024-03-02 | Outpatient (CLI) | payer MEDICARE, OTHER, SELFPAY ==
[2024-03-02 11:28] LABS: International Normalized Ratio 2.7; Prothrombin Time (Protime)PT. 28.6 SECONDS (11.7-14.9)
== END | disposition home or self-care (01) ==
LOC: LAB 09:30
PROVIDERS: PCP Family Medicine; Visit Provider Internal Medicine Cardiovascular Disease
DX: Z79.01 Long term (current) use of 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s (principal)
CPT/HCPCS: 36415; 85610

== ENCOUNTER → 2024-03-03 | Outpatient (CLI) | payer MEDICARE, OTHER, SELFPAY ==
[2024-03-03 14:12] LABS: Absolute Lymphocyte Count 0.63 X10^3/uL (0.83-4.51); Absolute Neutrophil Count 5.5 X10^3/uL (2.0-7.7); Basophil# 0.04 X10^3/uL; Basophil% 0.6 % (0-1); Eosinophil# 0.22 X10^3/uL; Eosinophils% 3.2 % (0-5); Hematocrit 31.5 % (37-47); Hemoglobin 9.8 g/dL (12.0-15.0); Lymphocyte # 0.63 X10^3/ul (0.83-4.51); Lymphocyte % 9.2 % (19-41); Mean Corp Hgb Conc 31.1 g/dL (32-36); Mean Corpuscular Hgb 29.6 pg (27.0-32.0); Mean Corpuscular Volume 95.2 fL (81-99); Mean Platelet Vol. 9.8 fl (6.2-12.0); Monocyte% 5.8 % (0-10); NRBC Flagged by Analyzer 0 % (0-5); Neutrophil # 5.52 X10^3/uL (2.7-7.7); Neutrophil % 80.8 % (47-70); Platelet Count 192 K/mm3 (150-450); RBC Distribution Width SD 48.9 fl (35.1-43.9); Red Blood Count 3.31 M/mm3 (4.2-5.4); White Blood Count 6.8 K/mm3 (4.4-11.0)
[2024-03-03 14:51] LABS: Anion Gap 3 (5-15); BUN 37 mg/dL (7-18); BUN/Creat Ratio 30.1 RATIO (10-20); Calcium,Total 8.8 mg/dL (8.5-10.1); Chloride 114 mmol/L (98-107); Creatinine, Serum 1.23 mg/dL (0.55-1.02); EST Glomerular Filtration Rate 45 mL/min (>60); Est Glom Filt Rate - Afr Amer 54 mL/min (>60); Glucose 101 mg/dL (74-106); Potassium 4.8 mmol/L (3.5-5.1); Sodium Level 140 mmol/L (136-145)
== END | disposition home or self-care (01) ==
LOC: LAB 13:52
PROVIDERS: PCP Family Medicine; Referring Provider Physician Assistant Medical; Visit Provider Physician Assistant Medical
DX: R06.02 Shortness of breath (principal); Z95.2 Presence of prosthetic heart valve
CPT/HCPCS: 36415; 80048; 85025

== ENCOUNTER → 2024-03-13 | Outpatient (CLI) | payer MEDICARE, OTHER, SELFPAY ==
[2024-03-13 11:50] LABS: Prothrombin Time (Protime)PT. 22.4 SECONDS (11.7-14.9)
== END | disposition home or self-care (01) ==
LOC: LAB 09:28
PROVIDERS: PCP Family Medicine; Visit Provider Internal Medicine Cardiovascular Disease
DX: Z79.01 Long term (current) use of 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s (principal)
CPT/HCPCS: 36415; 85610

== ENCOUNTER 2024-03-16 11:01 | Day surgery (SDC) | payer MEDICARE, OTHER, SELFPAY ==
--- NOTE | 2024-03-14 11:16 | PAT.ANESEVAL ---
Pre-Assessment Diagnosis/Proposed Procedure Planned Operative Procedure(s): EGD Anesthesia History Anesthesia History - mass spectroscopist: Anesthesia History - mass spectroscopist Hx Hospitalization Yes: 12/202303/14/24 09:35 Any Problems With Anesthesia No 03/14/24 09:35 Cholinesterase deficiency No 03/14/24 09:35 You/Your Family Experience No 03/14/24 09:35 fever (hyperthermia) with Relationship Recent Exposure to Contagious No 12/28/23 04:02 Disease Does patient have nerve No 03/14/24 09:35 stimulator Patient instructed to have device shut off --Does patient have Pacemaker or ICD? When Was Last Pacemaker Check QUESTION #4 FULL TEXT: You/Your Family Experience fever (hyperthermia) with Anesthesia Last Oral Intake Last Oral intake: Last Oral Intake NPO since Meds taken in AM with sips of water? Meds patient instructed to take am of surgery PONV PONV - mass spectroscopist: PONV - mass spectroscopist Female Yes 03/14/24 09:35 HX of Motion Sickness No 03/14/24 09:35 HX of N/V After Surgery No 03/14/24 09:35 Non-Smoker Yes 03/14/24 09:35 Duration of Surgery greater No 03/14/24 09:35 than 60 minutes Number of Risk Factors 2 03/14/24 09:35 PONV Score Moderate Risk 03/14/24 09:35 Height & Weight Height & Weight: Anesthesia: Height & Weight Height 5 ft 4 in 03/03/24 07:45 Respiratory Assessment Respiratory Assessment - mass spectroscopist: Respiratory Tract Infection Hx - mass spectroscopist Hx Respiratory Tract Infection No 03/14/24 09:35 STOP Sleep Apnea STOP Sleep Apnea - mass spectroscopist: STOP Sleep Apnea - mass spectroscopist Hx Hypertension No 03/14/24 09:35 Hx Sleep Apnea Yes: REFUSES TO HAVE MACHINE 03/14/24 09:35 CPAP No 03/14/24 09:35 BIPAP No 03/14/24 09:35 Do you snore loudly (louder than talking or can be heard Do you often feel tired/ fatigued/ sleepy during daytime? Has anyone observed you stop breathing during sleep? STOP Results Positive 03/14/24 09:35 QUESTION #5 FULL TEXT : Do you snore loudly (louder than talking or can be heard through closed doors)? 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 Specify any problems Hx of Preganancy in last 3 No 03/14/24 09:35 Months Nurse Filling Out Transfusion DSCHRIBER 03/14/24 09:35 & Questions: Date: 03/14/24 03/14/24 09:35 Time: 09:37 03/14/24 09:35 Patient unable to answer at this time (ie. confused, unrespo /Reproduction History /Reproductive History - mass spectroscopist: /Reproductive Hx- mass spectroscopist Hx Now No 03/14/24 09:35 Gestational Age (in weeks): EDC: Hx Hx Para Hx Section SAB No 03/14/24 09:35 [facility] Medical History (Updated 03/14/24 @ 09:44 by Stephanie Torres) Bruising Walker as ambulation aid Acute posthemorrhagic anemia History of atrial fibrillation History of peptic ulcer disease Adverse drug reaction Hematemesis/vomiting blood Depression GI bleed Atrial fibrillation Balance problem Thyroid disease Arthritis History of ulceration History of edema History of echocardiogram History of stress test Cardiology follow-up encounter Gross hematuria Anemia Asthma Sleep apnea Congestive heart failure (CHF) Myocardial infarct Migraines Stroke/cerebrovascular accident CVA (cerebral vascular accident) Depression Chronic pain GERD (gastroesophageal reflux disease) GI bleed Atrial fibrillation Hypertension Seizures Dementia Acute UTI Hyperparathyroidism Stage 4 chronic kidney disease Thoracic aortic aneurysm (TAA) Aortic stenosis with bicuspid valve Near syncope halfway current use of 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 Paroxysmal atrial fibrillation Essential hypertension Migraines Head injuries Ascending aortic aneurysm Urine retention Seizure disorder Physical debility History of gout Hyperuricemia Spinal stenosis Hypothyroidism History of venous thrombosis and embolism Esophageal reflux Home Medications ?Medication ?Instructions ?Recorded ?Last Taken ?Type allopurinol 100 mg tablet 100 mg PO DAILY GOUT #90 tabs 02/22/19 07/07/23 History levothyroxine 100 mcg tablet 100 mcg PO DAILY THYROID #90 tabs 02/22/19 03/16/24 History levetiracetam 1,000 mg tablet 1,000 mg PO BID EPILEPSY 06/06/21 03/16/24 History (Keppra) oxcarbazepine 150 mg tablet 150 mg PO BID EPILESPSY 09/12/21 03/16/24 History metoprolol succinate 25 mg 12.5 mg PO DAILY HEART #90 tabs 11/25/21 03/16/24 History tablet,extended release 24 hr memantine 10 mg tablet 10 mg PO BID MEMORY 02/22/23 03/15/24 History vibegron 75 mg tablet (Gemtesa) 75 mg PO DAILY OVERACTIVE BLADDER 02/22/23 03/16/24 History duloxetine 60 mg capsule,delayed 60 mg PO DAILY DEPRESSION 03/17/23 03/15/24 History release cholecalciferol (vitamin D3) 50 2,000 unit PO DAILY vitamin 06/20/23 03/15/24 History mcg (2,000 unit) capsule (D3-2000) omeprazole 40 mg capsule,delayed 40 mg PO DAILY reflux 06/20/23 03/11/24 History release rosuvastatin 40 mg tablet 40 mg PO QHS cholesterol 1 month 06/22/23 03/15/24 Rx #30 tabs polysaccharide iron complex 150 mg 150 mg PO DAILY supplement 30 days 07/27/23 03/11/24 Rx iron capsule (Ferrex) #30 caps nitroglycerin 0.4 mg sublingual 0.4 mg sublingual Q5M PRN CHEST 10/08/23 Unknown Rx tablet (Nitrostat) PAIN #25 tabs ondansetron HCl 4 mg tablet 4 mg PO TID PRN nausea and 12/21/23 Unknown Rx vomiting #20 tabs multivitamin (Daily Multi-Vitamin 1 tab PO DAILY supplement 12/25/23 03/15/24 History tablet) peg [id number] 1 1 drp EACH EYE Q1H PRN DRY EYES #0 12/31/23 Unknown Rx %-0.2 %-0.2 % eye drops mL (Artificial Tears ([id number])) metaxalone 400 mg tablet 800 mg PO BID PRN PRN muscle pain 03/03/24 03/15/24 History topiramate 50 mg tablet (Topamax) 50 mg PO QHS 03/03/24 03/15/24 History ubrogepant 100 mg tablet (Ubrelvy) 100 mg PO ONCE 03/03/24 Unknown History flecainide 50 mg tablet 50 mg PO BID heart rate #180 tabs 03/13/24 03/16/24 Rx amlodipine 10 mg tablet 10 mg PO DAILY 03/14/24 03/16/24 History ascorbic acid (vitamin C) 500 mg 500 mg PO DAILY 03/14/24 03/16/24 History tablet (Vitamin C) nortriptyline 50 mg capsule 50 mg PO QHS 03/14/24 03/15/24 History sucralfate 1 gram tablet 1 g PO DAILY 03/14/24 03/15/24 History warfarin 5 mg tablet (Jantoven) 2.5 mg PO DINNER 03/14/24 03/14/24 History Allergy/AdvReac Type Severity Reaction Status Date / Time celecoxib (From Celebrex) Allergy Severe Hives, Verified 03/16/24 11:33 swelling, difficulty breathing Sulfa (Sulfonamide Allergy Severe Hives, Verified 03/16/24 11:33 Antibiotics) swelling, difficulty breathing gemfibrozil AdvReac Intermediate Nausea,myal Verified 03/16/24 11:33 gias Family History Mother CVA (cerebral vascular accident) Breast cancer Hypertension CAD (coronary artery disease) Father Hypertension CAD (coronary artery disease) Surgical History (Updated 03/14/24 @ 09:44 by Stephanie Torres) History of esophagogastroduodenoscopy (EGD) History of appendectomy History of tilt table evaluation (05/21/16) History of thumb surgery (2004) History of lumpectomy (2009) History of bilateral breast reduction surgery (2008) History of total abdominal hysterectomy (1974) H/O chest tube placement (05/07/01) History of left heart catheterization (12/07/15) Hx of ascending aorta replacement (04/05/01) History of loop recorder Hx of aortic valve replacement, mechanical (04/05/01) History of open reduction and internal fixation (ORIF) procedure (11/30/19) Fracture of ankle, bimalleolar, left, closed Social History household members: none housing: [facility] Smoking Status: Never smoker alcohol intake: never substance use type: does not use Audit: Pertinent Findings Pertinent Findings EKG Perinent findings: March 03, 2024. Sinus bradycardia. First-degree AV block. Left bundle branch block-seen as far back as November 2021. Stress test pertinent findings: November 15, 2021. Ejection fraction is 68%. No evidence of significant ischemia or infarction. Echo (EF%) pertinent findings: June 21, 2023. Ejection fraction 55%. No aortic valve stenosis noted. Normal prosthetic aortic valve. Consult pertinent findings: March 03, 2024. Cecily AYALA. 1. Paroxysmal atrial fibrillation-currently inactive. Patient is to continue flecainide and metoprolol. 2. History of a aortic valve replacement. Mechanical valve. Latest echo shows mechanical valve is stable. She is to continue with antibiotic prophylaxis prior to procedures. She is anticoagulated with Coumadin. Patient is to check INR on March 13, 2024. Goal is to be just under 2 prior to her procedure on March 16, 2024. 3. Hypertension?controlled 4. Bradycardia arrhythmia. Controlled with metoprolol and flecainide. Additional pertinent findings: Holter monitor performed December 02, 2021. Average heart rate is normal sinus rhythm. With bundle branch block. And occasional junctional rhythm. There were rare PVCs and PSVC's. Recommendation Anesthesia Recommendation Anesthesia recommendation: OPTIMIZED for anesthesia
[2024-03-16] VITALS (8 sets, daily range): BP systolic 130–163; BP diastolic 54–71; PULSE 57–72; RESP 16–18; TEMP 36.1–36.2; O2SAT 98–100; BMI 40.7
--- NOTE | 2024-03-16 | IMM_PTH ---
PATIENT: CHANNING CANCHOLA LOC: EN U#:[id number] AGE/SX: 79/F ROOM: RE03/16/[address]: Dr. Kenyon Espinoza DO : 1945 BED: DIS: 03/16/2024 SPEC #: [id number] RECD: 03/20/24 10:18 STATUS: MEGAN REQ #: [id number] OLEKSANDR: 03/16/24 00:[address]: Kenyon Espinoza DEPT: IMMUNOHISTOCHEMISTRY RECD BY: David Hunter ENTERED: 03/20/24 10:18 SP TYPE: IMMUNO OTHR DR: Dr. Kishore Ricci MD Tissues: Duodenum, NOS Procedures: Synapto (add) CD45 (add) CD56 (add) CHROMO (add) CK20 (add) CK7 (add) CK8 (add) KI-67 (add) Pankeratin (initial) PHYSICIAN & INSTITUTION [place] [id number] SPECIMEN INFORMATION: Tissue Source: Duodenum polyp Clinical Info: Acute lower GI bleeding Specimen Number: [id number] CPT code: 92746,18651g1 METHODOLOGY: Deparaffinized sections of prefer/formalin-fixed tissue or PAP/DQ stained slides are incubated with monoclonal/polyclonal antibodies/oligonucleotide probes. Localization is made via biotin free immunoperoxidase method. Appropriate controls are performed and reacted as expected. Results on target cell population are indicated in the following table: RESULTS: ANTIBODY / CLONE RESULT AE1-3 (AE1/AE3/PCK26) negative CK7 (OV-TL12/30) negative CK8 (94vyjzY14) negative CK20 (KS20.8) negative CD45 (RP2/18) negative CD56 (123C3.D5) positive Chromo (LK2H10) positive Synapto (polyclonal) positive Ki-67 (30-9) positive, very low, <1% These tests were developed and their performance characteristics determined by [facility]. They may not have been cleared or approved by the U.S. Food and Drug Administration. The FDA has determined that such clearance or approval is not necessary. The above immunohistochemical/dualISH markers are ordered and reviewed by the Pathologist. INTERPRETATION: Duodenal polyp, polypectomy: Well differentiated neuroendocrine tumor, Grade 1 (Carcinoid Tumor). SHELDON/ 03/21/2024
[2024-03-16 11:17] LABS: INR Fingerstick 1.7; Prothrombin Time Fingerstick 18.9 SEC (11.7-14.9)
[2024-03-16 11:35] LABS: International Normalized Ratio 1.7; Prothrombin Time (Protime)PT. 20.2 SECONDS (11.7-14.9)
--- NOTE | 2024-03-16 12:15 | EGD_PTH ---
PATIENT: CHANNING CANCHOLA LOC: EN U#:[id number] AGE/SX: 79/F ROOM: RE03/16/[address]: Dr. Kenyon Espinoza DO : 1945 BED: DIS: 03/16/2024 SPEC #: [id number] RECD: 03/16/24 16:46 STATUS: MEGAN RECeleste #: [id number] OLEKSANDR: 03/16/24 12:[address]: Kenyon Espinoza DEPT: SURGICAL PATHOLOGY RECD BY: Sherri Walters ENTERED: 03/17/24 09:50 SP TYPE: EGD BIOPSY OT DR: Dr. Kishore Ricci MD Tissues: Duodenum, NOS Procedures: Surgery Specimen Level IV HEADER OPERATION: EGD, polypectomy PRE-OP DIAGNOSIS: Acute lower GI bleeding TISSUE SUBMITTED: Duodenum polyp MICROSCOPIC DIAGNOSIS Duodenal polyp, polypectomy: Well differentiated neuroendocrine tumor, grade 1 (carcinoid tumor). See comment. 03/20/2024 COMMENT Cautery artifacts are also noted. Immunohistochemistry ([id number]) supports the above diagnosis. Please make reference to previous specimen [id number] duodenal polyp, biopsy with diagnosis of low grade neuroendocrine tumor and [id number] with diagnosis of well differentiated neuroendocrine tumor, grade 1. MICROSCOPIC DESCRIPTION Slides are reviewed. GROSS DESCRIPTION Received in fixative is one container labeled with the patient's name and designated Duodenum polyp. The specimen consists of two irregular fragments of light colon soft tissue that in aggregate measure 0.7 x 0.2 x 0.1 cm. The specimen is totally submitted in one cassette. / 03/17/2024 TC:1 CPT:38726
--- NOTE | 2024-03-16 12:16 | PRE.ANES_ITS ---
ASA Classification* ASA Classification ASA Classification: 3 Assessment & Plan Anesthesia* Anesthesia Assessment Anesthesia Assessment: Discussed sedation and/or anesthesia options, risks, benefits, and alternatives with patient/parents/legal guardian/POA. Questions invited. The patient/parents/legal guardian/POA seems to understand and agrees to proceed with anesthesia plan. Reviewed the physical assessment, medical history, allergy history and patient home medications list prior to surgery/procedure/anesthetic and documented any changes. Performed airway and anesthesia risk assessments. Anesthesia Type Anesthesia Type: MAC History Source History Obtained from:: Patient and Chart Anesthesia Focused Assessment* Temperature: 97.0 F Pulse Rate: 69 Blood Pressure: 163/71 Respiratory Rate: 18 Pulse Ox: 98 Oxygen Delivery Method: Room Air Airway Assessment Mouth opens: 2 cm Mallampati Score: IV Teeth Condition: Caps/Crowns (Patient has a couple of implants left lower molars. They are tight.), Chipped/Broken (Patient has a couple chipped molars left upper.) and Missing (Patient has several missing teeth. The rest are tight.) Neck Range of motion (ROM): Limited ROM Focused Labs Anesthesia Preop lab: CBC WBC 6.8 K/mm3 (4.4-11.0) 03/03/24 13:55 RBC 3.31 M/mm3 (4.2-5.4) L 03/03/24 13:55 Hgb 9.8 g/dL (12.0-15.0) L 03/03/24 13:55 Hct 31.5 % (37-47) L 03/03/24 13:55 Plt Count 192 K/mm3 (150-450) 03/03/24 13:55 CHEMISTRY Potassium 4.8 mmol/L (3.5-5.1) 03/03/24 13:55 Sodium 140 mmol/L (136-145) 03/03/24 13:55 Magnesium 2.0 mg/dL (1.6-2.6) 12/25/23 20:49 Phosphorus 3.0 mg/dL (2.5-4.9) 12/27/23 06:45 BUN 37 mg/dL (7-18) H 03/03/24 13:55 Creatinine 1.23 mg/dL (0.55-1.02) H 03/03/24 13:55 Glucose 101 mg/dL (74-106) 03/03/24 13:55 POC Glucose 80 mg/dL (74-106) 12/28/23 11:26 TSH 3.240 uIU/mL (0.358-3.740) 12/26/23 06:11 COAG PT 20.2 SECONDS (11.7-14.9) H 03/16/24 11:18 INR 3.5 02/16/24 10:55 Pre-Assessment Diagnosis/Proposed Procedure Planned Operative Procedure(s): EGD Anesthesia History 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 When Was Last Pacemaker Check QUESTION #4 FULL TEXT: You/Your Family Experience fever (hyperthermia) with Anesthesia Last Oral Intake Last Oral intake: Last Oral Intake NPO since 17:00 03/16/24 11:37 Meds taken in AM with sips of water? 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 harness rigger Female Yes 03/14/24 09:35 HX of Motion Sickness No 03/14/24 09:35 HX of N/V After Surgery No 03/14/24 09:35 Non-Smoker Yes 03/14/24 09:35 Duration of Surgery greater No 03/14/24 09:35 than 60 minutes Number of Risk Factors 2 03/14/24 09:35 PONV Score Moderate Risk 03/14/24 09:35 Height & Weight Height & Weight: Anesthesia: Height & Weight Height 5 ft 4 in 03/16/24 11:37 Weight: 107.6 kg 03/16/24 11:37 Body Mass Index (BMI) 40.7 03/16/24 11:37 Respiratory Assessment Respiratory Assessment - parachute harness rigger: Respiratory Tract Infection Hx - parachute harness rigger Hx Respiratory Tract Infection No 03/14/24 09:35 Any additional information?: Yes Hx Respiratory Tract Infection: Yes (Patient has a chronic cough for the past year.) STOP Sleep Apnea STOP Sleep Apnea - parachute harness rigger: STOP Sleep Apnea - parachute harness rigger Hx Hypertension No 03/14/24 09:35 Hx Sleep Apnea Yes: REFUSES TO HAVE MACHINE 03/14/24 09:35 CPAP No 03/14/24 09:35 BIPAP No 03/14/24 09:35 Do you snore loudly (louder than talking or can be heard Do you often feel tired/ fatigued/ sleepy during daytime? Has anyone observed you stop breathing during sleep? STOP Results Positive 03/14/24 09:35 QUESTION #5 FULL TEXT : Do you snore loudly (louder than talking or can be heard through closed doors)? 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 Specify any problems Hx of Preganancy in last 3 No 03/14/24 09:35 Months Nurse Filling Out Transfusion DSCHRIBER 03/14/24 09:35 & Questions: Date: 03/14/24 03/14/24 09:35 Time: 09:37 03/14/24 09:35 Patient unable to answer at this time (ie. confused, unrespo /Reproduction History /Reproductive History - parachute harness rigger: /Reproductive Hx- parachute harness rigger Hx Now No 03/14/24 09:35 Gestational Age (in weeks): EDC: Hx Hx Para Hx Section SAB No 03/14/24 09:35 PFSH Medical History Bruising Walker as ambulation aid Acute posthemorrhagic anemia History of atrial fibrillation History of peptic ulcer disease Adverse drug reaction Hematemesis/vomiting blood Depression GI bleed Atrial fibrillation Balance problem Thyroid disease Arthritis History of ulceration History of edema History of echocardiogram History of stress test Cardiology follow-up encounter Gross hematuria Anemia Asthma Sleep apnea Congestive heart failure (CHF) Myocardial infarct Migraines Stroke/cerebrovascular accident CVA (cerebral vascular accident) Depression Chronic pain GERD (gastroesophageal reflux disease) GI bleed Atrial fibrillation Hypertension Seizures Dementia Acute UTI Hyperparathyroidism Stage 4 chronic kidney disease Thoracic aortic aneurysm (TAA) Aortic stenosis with bicuspid valve Near syncope FPC current use of 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 Paroxysmal atrial fibrillation Essential hypertension Migraines Head injuries Ascending aortic aneurysm Urine retention Seizure disorder Physical debility History of gout Hyperuricemia Spinal stenosis Hypothyroidism History of venous thrombosis and embolism Esophageal reflux Home Medications ?Medication ?Instructions ?Recorded ?Last Taken ?Type allopurinol 100 mg tablet 100 mg PO DAILY GOUT #90 tabs 02/22/19 07/07/23 History levothyroxine 100 mcg tablet 100 mcg PO DAILY THYROID #90 tabs 02/22/19 03/16/24 History levetiracetam 1,000 mg tablet 1,000 mg PO BID EPILEPSY 06/06/21 03/16/24 History (Keppra) oxcarbazepine 150 mg tablet 150 mg PO BID EPILESPSY 09/12/21 03/16/24 History metoprolol succinate 25 mg 12.5 mg PO DAILY HEART #90 tabs 11/25/21 03/16/24 History tablet,extended release 24 hr memantine 10 mg tablet 10 mg PO BID MEMORY 02/22/23 03/15/24 History vibegron 75 mg tablet (Gemtesa) 75 mg PO DAILY OVERACTIVE BLADDER 02/22/23 03/16/24 History duloxetine 60 mg capsule,delayed 60 mg PO DAILY DEPRESSION 03/17/23 03/15/24 History release cholecalciferol (vitamin D3) 50 2,000 unit PO DAILY vitamin 06/20/23 03/15/24 History mcg (2,000 unit) capsule (D3-1999) omeprazole 40 mg capsule,delayed 40 mg PO DAILY reflux 06/20/23 03/11/24 History release rosuvastatin 40 mg tablet 40 mg PO QHS cholesterol 1 month 06/22/23 03/15/24 Rx #30 tabs polysaccharide iron complex 150 mg 150 mg PO DAILY supplement 30 days 07/27/23 03/11/24 Rx iron capsule (Ferrex) #30 caps nitroglycerin 0.4 mg sublingual 0.4 mg sublingual Q5M PRN CHEST 10/08/23 Unknown Rx tablet (Nitrostat) PAIN #25 tabs ondansetron HCl 4 mg tablet 4 mg PO TID PRN nausea and 12/21/23 Unknown Rx vomiting #20 tabs multivitamin (Daily Multi-Vitamin 1 tab PO DAILY supplement 12/25/23 03/15/24 History tablet) peg [id number] 1 1 drp EACH EYE Q1H PRN DRY EYES #0 12/31/23 Unknown Rx %-0.2 %-0.2 % eye drops mL (Artificial Tears ([id number])) metaxalone 400 mg tablet 800 mg PO BID PRN PRN muscle pain 03/03/24 03/15/24 History topiramate 50 mg tablet (Topamax) 50 mg PO QHS 03/03/24 03/15/24 History ubrogepant 100 mg tablet (Ubrelvy) 100 mg PO ONCE 03/03/24 Unknown History flecainide 50 mg tablet 50 mg PO BID heart rate #180 tabs 03/13/24 03/16/24 Rx amlodipine 10 mg tablet 10 mg PO DAILY 03/14/24 03/16/24 History ascorbic acid (vitamin C) 500 mg 500 mg PO DAILY 03/14/24 03/16/24 History tablet (Vitamin C) nortriptyline 50 mg capsule 50 mg PO QHS 03/14/24 03/15/24 History sucralfate 1 gram tablet 1 g PO DAILY 03/14/24 03/15/24 History warfarin 5 mg tablet (Jantoven) 2.5 mg PO DINNER 03/14/24 03/14/24 History Allergy/AdvReac Type Severity Reaction Status Date / Time celecoxib (From Celebrex) Allergy Severe Hives, Verified 03/16/24 11:33 swelling, difficulty breathing Sulfa (Sulfonamide Allergy Severe Hives, Verified 03/16/24 11:33 Antibiotics) swelling, difficulty breathing gemfibrozil AdvReac Intermediate Nausea,myal Verified 03/16/24 11:33 gias Family History Mother CVA (cerebral vascular accident) Breast cancer Hypertension CAD (coronary artery disease) Father Hypertension CAD (coronary artery disease) Surgical History History of esophagogastroduodenoscopy (EGD) History of appendectomy History of tilt table evaluation (05/21/16) History of thumb surgery (2004) History of lumpectomy (2009) History of bilateral breast reduction surgery (2008) History of total abdominal hysterectomy (1974) H/O chest tube placement (05/07/01) History of left heart catheterization (12/07/15) Hx of ascending aorta replacement (04/05/01) History of loop recorder Hx of aortic valve replacement, mechanical (04/05/01) History of open reduction and internal fixation (ORIF) procedure (11/30/19) Fracture of ankle, bimalleolar, left, closed Social History household members: none housing: condominium Smoking Status: Never smoker alcohol intake: never substance use type: does not use Review of Systems (Anesthesia) ROS Narrative System reviewed and no additional complaints, except as documented.
--- NOTE | 2024-03-16 12:48 | PCM.HP.STD ---
[facility] - General General Date of Admission: 03/16/24 Date of Service: 03/16/24 Chief Complaint: GI bleed [facility] Narrative CHANNING CANCHOLA, is a 79 F who presentsCHANNING CANCHOLA, is a 78 F with a past medical history of history of CVA (06/2023), history of seizures; on Keppra, chronic dementia, CAD; s/p CA, history of mechanical AVR and replacement of ascending aorta; on Coumadin, history of atrial fibrillation; on Flecainide, history of CHF, history of ischemic colitis, CKD; stage IV with baseline creatinine of ~1.8 mg/dL, overactive bladder; on Gemtesa. She also has a history of of PUD (already on Protonix and Sucralfate) previously evaluated by myself who was transferred from [facility] after she was found down at home by her family with patient then having dark vomitus suspected for hematemesis with a stable hemoglobin of 9.9 g/dL, a CK of 1,200 U/L and an INR of 3 present on admission so arrangements were made to transfer her here so she could be evaluated by myself with suspected UGIB. She was also discovered to have mild rhabdomyolysis with her CT scan of the abdomen and pelvis unremarkable except for a 'fluid-filled esophagus'. She was then volume resuscitated and treated with IV Protonix with patient then transferred here for further treatment. The patient has a poor recollection of the details of recent events but she admits to laying her garage floor all night after she fell while looking for her cat and she also endorses a history of severe GERD with frequent heartburn and nausea in spite of her Protonix and Carafate. [facility] Medical History Bruising Walker as ambulation aid Acute posthemorrhagic anemia History of atrial fibrillation History of peptic ulcer disease Adverse drug reaction Hematemesis/vomiting blood Depression GI bleed Atrial fibrillation Balance problem Thyroid disease Arthritis History of ulceration History of edema History of echocardiogram History of stress test Cardiology follow-up encounter Gross hematuria Anemia Asthma Sleep apnea Congestive heart failure (CHF) Myocardial infarct Migraines Stroke/cerebrovascular accident CVA (cerebral vascular accident) Depression Chronic pain GERD (gastroesophageal reflux disease) GI bleed Atrial fibrillation Hypertension Seizures Dementia Acute UTI Hyperparathyroidism Stage 4 chronic kidney disease Thoracic aortic aneurysm (TAA) Aortic stenosis with bicuspid valve Near syncope 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 Paroxysmal atrial fibrillation Essential hypertension Migraines Head injuries Ascending aortic aneurysm Urine retention Seizure disorder Physical debility History of gout Hyperuricemia Spinal stenosis Hypothyroidism History of venous thrombosis and embolism Esophageal reflux Home Medications ?Medication ?Instructions ?Recorded ?Last Taken ?Type allopurinol 100 mg tablet 100 mg PO DAILY GOUT #90 tabs 02/22/19 07/07/23 History levothyroxine 100 mcg tablet 100 mcg PO DAILY THYROID #90 tabs 02/22/19 03/16/24 History levetiracetam 1,000 mg tablet 1,000 mg PO BID EPILEPSY 06/06/21 03/16/24 History (Keppra) oxcarbazepine 150 mg tablet 150 mg PO BID EPILESPSY 09/12/21 03/16/24 History metoprolol succinate 25 mg 12.5 mg PO DAILY HEART #90 tabs 11/25/21 03/16/24 History tablet,extended release 24 hr memantine 10 mg tablet 10 mg PO BID MEMORY 02/22/23 03/15/24 History vibegron 75 mg tablet (Gemtesa) 75 mg PO DAILY OVERACTIVE BLADDER 02/22/23 03/16/24 History duloxetine 60 mg capsule,delayed 60 mg PO DAILY DEPRESSION 03/17/23 03/15/24 History release cholecalciferol (vitamin D3) 50 2,000 unit PO DAILY vitamin 06/20/23 03/15/24 History mcg (2,000 unit) capsule (D3-2000) omeprazole 40 mg capsule,delayed 40 mg PO DAILY reflux 06/20/23 03/11/24 History release rosuvastatin 40 mg tablet 40 mg PO QHS cholesterol 1 month 06/22/23 03/15/24 Rx #30 tabs polysaccharide iron complex 150 mg 150 mg PO DAILY supplement 30 days 07/27/23 03/11/24 Rx iron capsule (Ferrex) #30 caps nitroglycerin 0.4 mg sublingual 0.4 mg sublingual Q5M PRN CHEST 10/08/23 Unknown Rx tablet (Nitrostat) PAIN #25 tabs ondansetron HCl 4 mg tablet 4 mg PO TID PRN nausea and 12/21/23 Unknown Rx vomiting #20 tabs multivitamin (Daily Multi-Vitamin 1 tab PO DAILY supplement 12/25/23 03/15/24 History tablet) peg [id number] 1 1 drp EACH EYE Q1H PRN DRY EYES #0 12/31/23 Unknown Rx %-0.2 %-0.2 % eye drops mL (Artificial Tears ([id number])) metaxalone 400 mg tablet 800 mg PO BID PRN PRN muscle pain 03/03/24 03/15/24 History topiramate 50 mg tablet (Topamax) 50 mg PO QHS 03/03/24 03/15/24 History ubrogepant 100 mg tablet (Ubrelvy) 100 mg PO ONCE 03/03/24 Unknown History flecainide 50 mg tablet 50 mg PO BID heart rate #180 tabs 03/13/24 03/16/24 Rx amlodipine 10 mg tablet 10 mg PO DAILY 03/14/24 03/16/24 History ascorbic acid (vitamin C) 500 mg 500 mg PO DAILY 03/14/24 03/16/24 History tablet (Vitamin C) nortriptyline 50 mg capsule 50 mg PO QHS 03/14/24 03/15/24 History sucralfate 1 gram tablet 1 g PO DAILY 03/14/24 03/15/24 History warfarin 5 mg tablet (Jantoven) 2.5 mg PO DINNER 03/14/24 03/14/24 History Allergy/AdvReac Type Severity Reaction Status Date / Time celecoxib (From Celebrex) Allergy Severe Hives, Verified 03/16/24 11:33 swelling, difficulty breathing Sulfa (Sulfonamide Allergy Severe Hives, Verified 03/16/24 11:33 Antibiotics) swelling, difficulty breathing gemfibrozil AdvReac Intermediate Nausea,myal Verified 03/16/24 11:33 gias Family History Mother CVA (cerebral vascular accident) Breast cancer Hypertension CAD (coronary artery disease) Father Hypertension CAD (coronary artery disease) Surgical History History of esophagogastroduodenoscopy (EGD) History of appendectomy History of tilt table evaluation (05/21/16) History of thumb surgery (2004) History of lumpectomy (2009) History of bilateral breast reduction surgery (2008) History of total abdominal hysterectomy (1974) H/O chest tube placement (05/07/01) History of left heart catheterization (12/07/15) Hx of ascending aorta replacement (04/05/01) History of loop recorder Hx of aortic valve replacement, mechanical (04/05/01) History of open reduction and internal fixation (ORIF) procedure (11/30/19) Fracture of ankle, bimalleolar, left, closed Social History household members: none housing: [facility] Smoking Status: Never smoker alcohol intake: never substance use type: does not use ROS Constitutional Constitutional: Denies fatigue, fever(s), poor appetite, weight gain or weight loss Gastrointestinal Gastrointestinal: Denies belching, bloating, change in bowel habits, change in stool character, chewing difficulty, coffee ground emesis, constipation, cramping, diarrhea, dyspepsia, dysphagia, early satiety, excessive flatus, fecal incontinence, heartburn, hematemesis, hematochezia, hemorrhoids, loose stools, melena, nausea, odynophagia, rectal bleeding, tenesmus, vomiting or weight changes Vital Signs Vital Signs Vital Signs: 03/16/24 11:37 03/16/24 11:37 03/16/24 12:37 Temperature 97.0 F L 97.0 F L Temperature Source Temporal Pulse Rate 69 69 Respiratory Rate 18 18 Respiratory Pattern Normal Blood Pressure 163/71 H 163/71 H Blood Pressure Mean 101 Blood Pressure Source Monitor Blood Pressure Position Semi-Fowlers Blood Pressure Location Right Arm Pulse Ox 98 98 Oxygen Delivery Method Room Air Room Air Weight Weight: 237 lb 3.478 oz Body Mass Index (BMI) 40.7 Physical Exam Const alert, oriented x3, no apparent distress and healthy appearing General Appearance: cooperative GI normal to inspection, nondistended, normoactive bowel sounds, soft to palpation, non-tender and non-distended Percussion: normal to percussion Rectal Exam: deferred Results Lab / Micro Data Labs: Laboratory Results - last 24 hr 03/16/24 11:14: POC PT 18.9 H, INR 1.7 03/16/24 11:18: PT 20.2 H, INR 1.7 Assessment & Plan Assessment/Plan (1) Acute lower GI bleeding: PLAN: Plan Acute lower GI bleed ? hemoglobin is 10.7 she has not had any more bleeding, py ? Continue clear liquid diet ? Her care is complicated by the need for anticoagulation secondary to her mechanical aortic valve, will not actively reverse her INR but will also hold her Coumadin Nausea vomiting -Consistent with gastroparesis. I wanted to start on Reglan therapy addressed with mirtazapine but is a interaction with one of her medicines. Therefore we will start her on Compazine therapy scheduled Pathology on the large polypoid mass in her duodenum is pending. Will repeat upper endoscopy to evaluate her polypoid duodenal mass.
[2024-03-16] MEDS: Cefazolin 1 GM/50 ML BAG IV (12:58)
--- NOTE | 2024-03-16 13:17 | OP.CCLET_ITS ---
03/16/2024 Kishore Ricci MD [address] [id number] Re : Upper GI endoscopy procedure for Shi Mckeon Dear Dr. Ricci This procedure was performed on March. My impressions and recommendations are as follows: Impressions : - Normal esophagus. - Small hiatal hernia. - A single duodenal polyp. Resected and retrieved. Recommendations : - Discharge patient to home. - Resume previous diet. - Continue present medications. - Await pathology results. My findings are described in the full procedure note, which is enclosed. If I can be of further assistance, please feel free to contact me at . Sincerely, Kenyon Espinoza, 03/16/2024 1:17:34 PM This report has been signed electronically.
--- NOTE | 2024-03-16 13:17 | OP.EGD_ITS ---
Patient Name: Shi Mckeon Procedure Date: 03/16/2024 12:53 PM Date of : 1945 Age: 79 Procedure: Upper GI endoscopy Indications: Acute post hemorrhagic anemia, Iron deficiency anemia, Recent gastrointestinal bleeding Providers: Kenyon Espinoza DO Medicines: Monitored Anesthesia Care Patient Profile: This is an 79 year old female. Refer to note in patient chart for documentation of history and physical. Patient has symptoms. Complications: No immediate complications. Procedure: Pre-Anesthesia Assessment: - Prior to the procedure, a History and Physical was performed, and patient medications and allergies were reviewed. The patient is competent. The risks and benefits of the procedure and the sedation options and risks were discussed with the patient. All questions were answered and informed consent was obtained. Patient identification and proposed procedure were verified by the physician in the pre-procedure area. Mental Status Examination: alert and oriented. Airway Examination: normal oropharyngeal airway and neck mobility. Respiratory Examination: clear to auscultation. CV Examination: normal. Prophylactic Antibiotics: The patient does not require prophylactic antibiotics. Prior Anticoagulants: The patient has taken no 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 or antiplatelet agents except for NSAID medication. ASA Grade Assessment: III - A patient with severe systemic disease. After reviewing the risks and benefits, the patient was deemed in satisfactory condition to undergo the procedure. The anesthesia plan was to use monitored anesthesia care (MAC). Immediately prior to administration of medications, the patient was re-assessed for adequacy to receive sedatives. The heart rate, respiratory rate, oxygen saturations, blood pressure, adequacy of pulmonary ventilation, and response to care were monitored throughout the procedure. The physical status of the patient was re-assessed after the procedure. After obtaining informed consent, the endoscope was passed under direct vision. Throughout the procedure, the patient's blood pressure, pulse, and oxygen saturations were monitored continuously. The Endoscope was introduced through the mouth, and advanced to the second part of duodenum. The upper GI endoscopy was accomplished without difficulty. The patient tolerated the procedure well. Findings: The examined esophagus was normal. A small hiatal hernia was present. No other significant abnormalities were identified in a careful examination of the stomach. A single 8 mm sessile polyp was found in the duodenal bulb. The polyp was removed with a hot snare. Resection and retrieval were complete. Verification of patient identification for the specimen was done. Estimated blood loss was minimal. Impression: - Normal esophagus. - Small hiatal hernia. - A single duodenal polyp. Resected and retrieved. Recommendation: - Discharge patient to home. - Resume previous diet. - Continue present medications. - Await pathology results. Procedure Code(s): --- Professional --- 71238, Esophagogastroduodenoscopy, flexible, transoral; with removal of tumor(s), polyp(s), or other lesion(s) by snare technique CPT copyright 2021 [employer]. All rights reserved. The codes documented in this report are preliminary and upon insurance coder review may be revised to meet current compliance requirements. Kenyon Espinoza DO 03/16/2024 1:17:34 PM This report has been signed electronically. Number of Addenda: 0 Note Initiated On: 03/16/2024 12:53 PM
--- NOTE | 2024-03-16 13:23 | PCM.POST.ANE ---
Anesthesia: Postop Eval I Current Vital Signs Temperature: 97.2 F Pulse Rate: 72 Blood Pressure: 149/68 Respiratory Rate: 16 Pulse Ox: 100 Oxygen Delivery Method: Room Air Assessment Airway patent: Yes Spontaneous unlabored respirations: Yes Mental status: Asleep nausea: No Vomiting: No Anesthesia Complication: No Fluid Hydration Crystalloid volume administer (ml): 30 Total IV fluid infused: 30 Progress Note Anesthesia document: Postop Eval 1 completed: Yes
--- NOTE | 2024-03-16 13:46 | PCM.POSTANE2 ---
Anesthesia Postop Eval I Sum Postop Eval Completion status Anesthesia document: Postop Eval 1 completed: Yes Anesthesia Postop Eval I Summary Anesthesia Postop Eval I Summary: Anesthesia Postop Eval I: Assessment Summary Airway patent Yes 03/16/24 13:24 [email or web address] Spontaneous unlabored Yes 03/16/24 13:24 [email or web address] respirations Mental status Asleep 03/16/24 13:24 [email or web address] nausea No 03/16/24 13:24 [email or web address] Vomiting No 03/16/24 13:24 [email or web address] Anesthesia Postop Eval I: Fluid Summary Crystalloid volume administer 30 03/16/24 13:24 [email or web address] (ml) Colloids volume administered ( ml) Blood Product volume administered (ml) Total IV fluid infused 30 03/16/24 13:24 [email or web address] Anesthesia Postop Eval I: Summary Notes Anesthesia Complication No 03/16/24 13:24 [email or web address] Anesthesia Complication Comment: Post-operative progress note Anesthesia: Postop Eval II Evaluation Mental status: Awake and Calm Pain Level: 0 nausea: No Vomiting: No Complications Anesthesia Complication: No
== END 2024-03-16 13:56 | disposition home or self-care (01) ==
LOC: EN 11:03 → AC 11:04
PROVIDERS: Physician Assistant Medical; PCP Family Medicine; Referring Provider Family Medicine; Visit Provider Internal Medicine Gastroenterology
PROC: 0DJ08ZZ Inspection of Upper Intestinal Tract, Via Natural or Artificial Opening Endoscopic (ICD-10-PCS; CPT 43235; principal; 2024-03-16 12:10)
DX: C7A.010 Malignant carcinoid tumor of the duodenum (principal); C7A.8 Other malignant neuroendocrine tumors; N18.4 Chronic kidney disease, stage 4 (severe); I50.9 Heart failure, unspecified; I13.0 Hypertensive heart and chronic kidney disease with heart failure and stage 1 through stage 4 chronic kidney disease, or unspecified chronic kidney disease; F03.90 Unspecified dementia, unspecified severity, without behavioral disturbance, psychotic disturbance, mood disturbance, and anxiety; G40.909 Epilepsy, unspecified, not intractable, without status epilepticus; K92.2 Gastrointestinal hemorrhage, unspecified; D62 Acute posthemorrhagic anemia; I25.10 Atherosclerotic heart disease of native coronary artery without angina pectoris; K21.9 Gastro-esophageal reflux disease without esophagitis; K44.9 Diaphragmatic hernia without obstruction or gangrene; I25.2 Old myocardial infarction; Z80.3 Family history of malignant neoplasm of breast; Z79.899 Other long term (current) drug therapy; Z79.01 Long term (current) use of 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s; Z86.73 Personal history of transient ischemic attack (TIA), and cerebral infarction without residual deficits; Z86.711 Personal history of pulmonary embolism
CPT/HCPCS: 43251; 36415; 36416; 85610; 88305; 88341; 88342; A4216; J2405

== ENCOUNTER → 2024-03-21 | Outpatient (CLI) | payer MEDICARE, OTHER, SELFPAY ==
[2024-03-21 11:23] LABS: International Normalized Ratio 1.6; Prothrombin Time (Protime)PT. 19.5 SECONDS (11.7-14.9)
== END | disposition home or self-care (01) ==
LOC: LAB 10:18
PROVIDERS: PCP Family Medicine; Referring Provider Internal Medicine Cardiovascular Disease; Visit Provider Internal Medicine Cardiovascular Disease
DX: F01.50 Vascular dementia, unspecified severity, without behavioral disturbance, psychotic disturbance, mood disturbance, and anxiety (principal); Z95.2 Presence of prosthetic heart valve; Z79.01 Long term (current) use of 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s
CPT/HCPCS: 36415; 85610

== ENCOUNTER → 2024-03-23 | Outpatient (CLI) | payer MEDICARE, OTHER, SELFPAY ==
[2024-03-23 10:59] LABS: International Normalized Ratio 2.2; Prothrombin Time (Protime)PT. 24.9 SECONDS (11.7-14.9)
== END | disposition home or self-care (01) ==
LOC: LAB 09:47
PROVIDERS: PCP Family Medicine; Visit Provider Internal Medicine Cardiovascular Disease
DX: F01.50 Vascular dementia, unspecified severity, without behavioral disturbance, psychotic disturbance, mood disturbance, and anxiety (principal); Z79.01 Long term (current) use of 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s; Z95.2 Presence of prosthetic heart valve
CPT/HCPCS: 36415; 85610

== ENCOUNTER → 2024-03-29 | Outpatient (CLI) | payer MEDICARE, OTHER, SELFPAY ==
[2024-03-29 17:38] LABS: Absolute Lymphocyte Count 0.81 X10^3/uL (0.83-4.51); Basophil# 0.04 X10^3/uL; Basophil% 0.5 % (0-1); Eosinophil# 0.29 X10^3/uL; Eosinophils% 3.3 % (0-5); Hematocrit 32.2 % (37-47); Hemoglobin 10.2 g/dL (12.0-15.0); Lymphocyte # 0.81 X10^3/ul (0.83-4.51); Lymphocyte % 9.3 % (19-41); Mean Corp Hgb Conc 31.7 g/dL (32-36); Mean Corpuscular Hgb 29.6 pg (27.0-32.0); Mean Corpuscular Volume 93.3 fL (81-99); Mean Platelet Vol. 10.2 fl (6.2-12.0); Monocyte# 0.54 X10^3/uL; Monocyte% 6.2 % (0-10); NRBC Flagged by Analyzer 0 % (0-5); Neutrophil # 7.02 X10^3/uL (2.7-7.7); Neutrophil % 80.4 % (47-70); Platelet Count 231 K/mm3 (150-450); RBC Distribution Width CV 13.9 % (11.6-14.6); RBC Distribution Width SD 46.6 fl (35.1-43.9); Red Blood Count 3.45 M/mm3 (4.2-5.4); White Blood Count 8.7 K/mm3 (4.4-11.0)
== END | disposition home or self-care (01) ==
LOC: MFPLAB 15:56
PROVIDERS: PCP Family Medicine; Referring Provider Family Medicine; Visit Provider Family Medicine
DX: D64.9 Anemia, unspecified (principal)
CPT/HCPCS: 36415; 85025

== ENCOUNTER → 2024-03-31 | Outpatient (CLI) | payer MEDICARE, OTHER, SELFPAY ==
[2024-03-31 10:26] LABS: International Normalized Ratio 1.4; Prothrombin Time (Protime)PT. 17.2 SECONDS (11.7-14.9)
== END | disposition home or self-care (01) ==
LOC: LAB 08:49
PROVIDERS: PCP Family Medicine; Visit Provider Internal Medicine Cardiovascular Disease
DX: F01.50 Vascular dementia, unspecified severity, without behavioral disturbance, psychotic disturbance, mood disturbance, and anxiety (principal); Z95.2 Presence of prosthetic heart valve; Z79.01 Long term (current) use of 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s

== ENCOUNTER → 2024-04-03 | Outpatient (CLI) | payer MEDICARE, OTHER, SELFPAY ==
[2024-04-03 11:47] LABS: Prothrombin Time (Protime)PT. 23.2 SECONDS (11.7-14.9)
== END | disposition home or self-care (01) ==
LOC: LAB 10:22
PROVIDERS: PCP Family Medicine; Visit Provider Internal Medicine Cardiovascular Disease
DX: F01.50 Vascular dementia, unspecified severity, without behavioral disturbance, psychotic disturbance, mood disturbance, and anxiety (principal); Z95.2 Presence of prosthetic heart valve; Z79.01 Long term (current) use of 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s
CPT/HCPCS: 36415; 85610

== ENCOUNTER → 2024-04-10 | Outpatient (CLI) | payer MEDICARE, OTHER, SELFPAY ==
[2024-04-10 12:00] LABS: International Normalized Ratio 2.2; Prothrombin Time (Protime)PT. 24.8 SECONDS (11.7-14.9)
== END | disposition home or self-care (01) ==
LOC: LAB 08:44
PROVIDERS: PCP Family Medicine; Visit Provider Internal Medicine Cardiovascular Disease
DX: F01.50 Vascular dementia, unspecified severity, without behavioral disturbance, psychotic disturbance, mood disturbance, and anxiety (principal); Z95.2 Presence of prosthetic heart valve; Z79.01 Long term (current) use of 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s
CPT/HCPCS: 36415; 85610

== ENCOUNTER → 2024-04-17 | Outpatient (CLI) | payer MEDICARE, OTHER, SELFPAY ==
[2024-04-17 11:40] LABS: International Normalized Ratio 5.9; Prothrombin Time (Protime)PT. 53.8 SECONDS (11.7-14.9)
== END | disposition home or self-care (01) ==
LOC: LAB 08:49
PROVIDERS: PCP Family Medicine; Visit Provider Internal Medicine Cardiovascular Disease
DX: F01.50 Vascular dementia, unspecified severity, without behavioral disturbance, psychotic disturbance, mood disturbance, and anxiety (principal); Z95.2 Presence of prosthetic heart valve; Z79.01 Long term (current) use of 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s
CPT/HCPCS: 36415; 85610

== ENCOUNTER → 2024-04-19 | Outpatient (CLI) | payer MEDICARE, OTHER, SELFPAY ==
[2024-04-19 09:50] LABS: International Normalized Ratio 3.2; Prothrombin Time (Protime)PT. 33.5 SECONDS (11.7-14.9)
== END | disposition home or self-care (01) ==
LOC: LAB 08:08
PROVIDERS: PCP Family Medicine; Visit Provider Internal Medicine Cardiovascular Disease
DX: F01.50 Vascular dementia, unspecified severity, without behavioral disturbance, psychotic disturbance, mood disturbance, and anxiety (principal); Z95.2 Presence of prosthetic heart valve; Z79.01 Long term (current) use of 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s
CPT/HCPCS: 36415; 85610

== ENCOUNTER → 2024-04-26 | Outpatient (CLI) | payer MEDICARE, OTHER, SELFPAY ==
[2024-04-26 10:18] LABS: International Normalized Ratio 1.1; Prothrombin Time (Protime)PT. 14.3 SECONDS (11.7-14.9)
== END | disposition home or self-care (01) ==
LOC: LAB 07:39
PROVIDERS: PCP Family Medicine; Referring Provider Internal Medicine Cardiovascular Disease; Visit Provider Internal Medicine Cardiovascular Disease
DX: F01.50 Vascular dementia, unspecified severity, without behavioral disturbance, psychotic disturbance, mood disturbance, and anxiety (principal); Z95.2 Presence of prosthetic heart valve; Z79.01 Long term (current) use of 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s
CPT/HCPCS: 36415; 85610

== ENCOUNTER → 2024-04-28 | Outpatient (CLI) | payer MEDICARE, OTHER, SELFPAY ==
[2024-04-28 10:48] LABS: Prothrombin Time (Protime)PT. 13.6 SECONDS (11.7-14.9)
== END | disposition home or self-care (01) ==
LOC: LAB 09:08
PROVIDERS: PCP Family Medicine; Visit Provider Internal Medicine Cardiovascular Disease
DX: F01.50 Vascular dementia, unspecified severity, without behavioral disturbance, psychotic disturbance, mood disturbance, and anxiety (principal); Z95.2 Presence of prosthetic heart valve; Z79.01 Long term (current) use of 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s
CPT/HCPCS: 36415; 85610

== ENCOUNTER → 2024-05-02 | Outpatient (CLI) | payer MEDICARE, OTHER, SELFPAY ==
[2024-05-02 10:33] LABS: International Normalized Ratio 1.6
== END | disposition home or self-care (01) ==
LOC: LAB 08:23
PROVIDERS: PCP Family Medicine; Visit Provider Internal Medicine Cardiovascular Disease
DX: F01.50 Vascular dementia, unspecified severity, without behavioral disturbance, psychotic disturbance, mood disturbance, and anxiety (principal); Z95.2 Presence of prosthetic heart valve; Z79.01 Long term (current) use of 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s
CPT/HCPCS: 36415; 85610

== ENCOUNTER → 2024-05-04 | Outpatient (CLI) | payer MEDICARE, OTHER, SELFPAY ==
[2024-05-04 12:23] LABS: International Normalized Ratio 3.1; Prothrombin Time (Protime)PT. 32.7 SECONDS (11.7-14.9)
== END | disposition home or self-care (01) ==
LOC: LAB 08:57
PROVIDERS: PCP Family Medicine; Visit Provider Internal Medicine Cardiovascular Disease
DX: F01.50 Vascular dementia, unspecified severity, without behavioral disturbance, psychotic disturbance, mood disturbance, and anxiety (principal); Z95.2 Presence of prosthetic heart valve; Z79.01 Long term (current) use of 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s
CPT/HCPCS: 36415; 85610

== ENCOUNTER → 2024-05-08 | Outpatient (CLI) | payer MEDICARE, OTHER, SELFPAY ==
[2024-05-08 11:35] LABS: Prothrombin Time (Protime)PT. 31.6 SECONDS (11.7-14.9)
== END | disposition home or self-care (01) ==
LOC: LAB 10:04
PROVIDERS: PCP Family Medicine; Visit Provider Internal Medicine Cardiovascular Disease
DX: Z79.01 Long term (current) use of 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s (principal); F01.50 Vascular dementia, unspecified severity, without behavioral disturbance, psychotic disturbance, mood disturbance, and anxiety; Z95.2 Presence of prosthetic heart valve
CPT/HCPCS: 36415; 85610

== ENCOUNTER → 2024-05-15 | Outpatient (CLI) | payer MEDICARE, OTHER, SELFPAY ==
[2024-05-15 11:29] LABS: Prothrombin Time (Protime)PT. 57.3 SECONDS (11.7-14.9)
[2024-05-15 11:39] LABS: International Normalized Ratio 6.3
== END | disposition home or self-care (01) ==
PROVIDERS: PCP Family Medicine; Referring Provider Internal Medicine Cardiovascular Disease; Visit Provider Internal Medicine Cardiovascular Disease
DX: F01.50 Vascular dementia, unspecified severity, without behavioral disturbance, psychotic disturbance, mood disturbance, and anxiety (principal); Z79.01 Long term (current) use of 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s; Z95.2 Presence of prosthetic heart valve
CPT/HCPCS: 36415; 85610

== ENCOUNTER → 2024-05-17 | Outpatient (CLI) | payer MEDICARE, OTHER, SELFPAY ==
[2024-05-17 11:32] LABS: International Normalized Ratio 3.6; Prothrombin Time (Protime)PT. 36.7 SECONDS (11.7-14.9)
== END | disposition home or self-care (01) ==
LOC: LAB 09:11
PROVIDERS: PCP Family Medicine; Visit Provider Internal Medicine Cardiovascular Disease
DX: F01.50 Vascular dementia, unspecified severity, without behavioral disturbance, psychotic disturbance, mood disturbance, and anxiety (principal); Z95.2 Presence of prosthetic heart valve; Z79.01 Long term (current) use of 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s
CPT/HCPCS: 36415; 85610

== ENCOUNTER 2024-05-24 06:11 | Inpatient (IN) | payer MEDICARE, OTHER, SELFPAY ==
[2024-05-24] VITALS (10 sets, daily range): BP systolic 135–178; BP diastolic 39–62; PULSE 68–73; RESP 14–18; TEMP 36.3–37.1; O2SAT 96–99; BMI 40.6; BMI 40.1
--- NOTE | 2024-05-24 06:27 | RAD_ITS ---
PROCEDURE: PELVIS 1 OR 2 VIEWS REASON FOR EXAM: FALL TECHNIQUE: 2 view(s) of the pelvis. COMPARISON: None FINDINGS: No fracture. No suspicious bone lesion. Soft tissues are unremarkable. Osteitis pubis is noted. RAD/Pelvis 1 or 2 Views IMPRESSION: No fracture or dislocation is seen within the pelvis. Reading Location: [id number]
--- NOTE | 2024-05-24 06:27 | RAD_ITS ---
EXAM: XR Chest, 1 View CLINICAL INDICATION: WEAKNESS TECHNIQUE: Frontal view of the chest. COMPARISON: No relevant prior studies available. FINDINGS: LUNGS AND PLEURAL SPACES: See below. HEART: Cardiomegaly with mild congestion. MEDIASTINUM: Unremarkable. Normal mediastinal contour. BONES/JOINTS: Unremarkable. No acute fracture. RAD/Chest 1 View (Portable) IMPRESSION: Cardiomegaly with mild congestion. Reading [facility]
[2024-05-24] MEDS: 0.9% Normal Saline (1000mL) 1,000 ML 999 ML IV (06:38)
[2024-05-24 06:52] LABS: Absolute Lymphocyte Count 0.37 X10^3/uL (0.83-4.51); Absolute Neutrophil Count 8.8 X10^3/uL (2.0-7.7); Basophil# 0.03 X10^3/uL; Basophil% 0.3 % (0-1); Eosinophil# 0.04 X10^3/uL; Eosinophils% 0.4 % (0-5); Hematocrit 31.7 % (37-47); Hemoglobin 10.3 g/dL (12.0-15.0); Lymphocyte # 0.37 X10^3/ul (0.83-4.51); Lymphocyte % 3.6 % (19-41); Mean Corp Hgb Conc 32.5 g/dL (32-36); Mean Corpuscular Hgb 29.6 pg (27.0-32.0); Mean Corpuscular Volume 91.1 fL (81-99); Mean Platelet Vol. 10.2 fl (6.2-12.0); Monocyte% 9.7 % (0-10); NRBC Flagged by Analyzer 0 % (0-5); Neutrophil # 8.83 X10^3/uL (2.7-7.7); Neutrophil % 85.4 % (47-70); POSITIVE DIFFERENTIAL YES; Platelet Count 177 K/mm3 (150-450); RBC Distribution Width CV 13.6 % (11.6-14.6); RBC Distribution Width SD 45.3 fl (35.1-43.9); Red Blood Count 3.48 M/mm3 (4.2-5.4); White Blood Count 10.3 K/mm3 (4.4-11.0)
[2024-05-24 06:57] LABS: Mucous, Urine 0 SEEN /hpf (<or=2+); Squamous Epithelial Cells - UA 0 SEEN /hpf (5-10)
[2024-05-24 07:02] LABS: International Normalized Ratio 2.9; Prothrombin Time (Protime)PT. 30.8 SECONDS (11.7-14.9)
--- NOTE | 2024-05-24 07:14 | CT_ITS ---
EXAM: BRAIN/HEAD WITHOUT CONTRAST CLINICAL HISTORY: CONFUSION COMPARISON: Comparison is made with prior study dated December 26, 2023 TECHNIQUE: Multiple axial tomographic images were obtained without intravenous contrast administration. Coronal and sagittal reconstruction was obtained as well. FINDINGS: Stable mild degree of cerebral atrophy. Decreased attenuation in the the the white matter of both cerebral hemispheres in the periventricular distribution in keeping with chronic small-vessel disease. Stable focal encephalomalacia in the posterior left parietal occipital lobes as well as in the left frontal lobe in keeping with old ischemic change. Atherosclerotic calcification of the cavernous portions of the internal carotid arteries bilaterally. CT/Brain/Head without Contrast IMPRESSION: Atrophy as described. Stable examination. [facility]
[2024-05-24 07:35] LABS: Color, Urine Yellow (Yellow); Glucose, Dipstick Normal (Normal); Ketone-Dipstick Negative (Negative); Leukocyte Esterase-Dipstick 100 /ul (Negative); Nitrite-Dipstick Negative (Negative); Occult Blood-Urine 250 /ul (Negative); Protein-Dipstick 30 mg/dl (Negative); Specific Gravity, Urine 1.025 (1.002-1.030); Urine Bilirubin Dipstick Negative (Negative); Urine Clarity Sl. Cloudy (Clear); Urine Urobilinogen Normal (Normal)
[2024-05-24 07:45] LABS: Bacteria 3+ /hpf (None Seen); Red Blood Cells-Urine 0-5 SEEN /hpf (0-5); White Blood Cells 5-10 SEEN /hpf (0-5)
[2024-05-24 07:49] LABS: Bedside Glucose 117 mg/dL (74-106)
[2024-05-24 08:10] LABS: AST(SGOT) 179 U/L (<=31); Alanine Aminotransfer ALT/SGPT 67 U/L (<=34); Albumin, Serum 3.5 g/dL (3.4-4.8); Alkaline Phosphatase 91 U/L (35-104); Anion Gap 14 (5-15); BUN 39 mg/dL (4-19); BUN/Creat Ratio 15.5 RATIO (10-20); Bilirubin, Direct 0.26 mg/dL (0.00-0.30); Calcium,Total 9.3 mg/dL (7.6-11.0); Carbon Dioxide 19.9 mmol/L (21.0-32.0); Chloride 109 mmol/L (98-108); Creatinine, Serum 2.52 mg/dL (0.70-1.20); EST Glomerular Filtration Rate 19 (>60); Estimated Creatinine Clearance 20.93 ml/min (50-250); Globulin 2.5 g/dL (2.2-4.2); Glucose 109 mg/dL (70-99); Potassium 3.3 mmol/L (3.3-5.1); Sodium Level 142 mmol/L (133-145); Total Bilirubin 0.44 mg/dL (0.00-1.30)
--- NOTE | 2024-05-24 08:12 | EX.ED.DYSGE1 ---
HPI History of Present Illness Chief Complaint: Alt LOC Informant: patient and family Narrative Narrative: Patient is 79-year-old female with past medical history of aortic stenosis status post mechanical valve currently on Coumadin as well as vascular dementia. Family states that she lives by herself but that she has a life alert and that they are [place] [address] and therefore check in on her often. Family states that yesterday they received a phone call from the patient stating she was stuck on the toilet at the dentist office. Family states when they arrived at the patient's home she was stuck on the toilet but obviously was at her own house and not at the dentist office indicating confusion. Later that night EMS was activated by her life alert as she had fallen and she stated she fell as she was trying to get to the bathroom and was weak. Reportedly EMS was able to help her up and place her back in bed but this morning she awoke and had to use the restroom once again but was too weak to even stand and get up out of bed and therefore she was brought to the ER for evaluation. Family does state that when the patient acts like this she typically has a urinary tract infection [facility] Medical History (Updated 05/24/24 @ 08:[address] Suraj Galeas, ) Bruising Walker as ambulation aid Acute posthemorrhagic anemia History of atrial fibrillation History of peptic ulcer disease Adverse drug reaction Hematemesis/vomiting blood Depression GI bleed Atrial fibrillation Balance problem Thyroid disease Arthritis History of ulceration History of edema History of echocardiogram History of stress test Cardiology follow-up encounter Gross hematuria Anemia Asthma Sleep apnea Congestive heart failure (CHF) Myocardial infarct Migraines Stroke/cerebrovascular accident CVA (cerebral vascular accident) Depression Chronic pain GERD (gastroesophageal reflux disease) GI bleed Atrial fibrillation Hypertension Seizures Dementia Acute UTI Hyperparathyroidism Stage 4 chronic kidney disease Thoracic aortic aneurysm (TAA) Aortic stenosis with bicuspid valve Near 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 of 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 Paroxysmal atrial fibrillation Essential hypertension Migraines Head injuries Ascending aortic aneurysm Urine retention Seizure disorder Physical debility History of gout Hyperuricemia Spinal stenosis Hypothyroidism History of venous thrombosis and embolism Esophageal reflux Home Medications ?Medication ?Instructions ?Recorded ?Last Taken ?Type allopurinol 100 mg tablet 100 mg PO DAILY GOUT #90 tabs 02/22/19 07/07/23 History levothyroxine 100 mcg tablet 100 mcg PO DAILY THYROID #90 tabs 02/22/19 03/16/24 History levetiracetam 1,000 mg tablet 1,000 mg PO BID EPILEPSY 06/06/21 03/16/24 History (Keppra) oxcarbazepine 150 mg tablet 150 mg PO BID EPILESPSY 09/12/21 03/16/24 History metoprolol succinate 25 mg 12.5 mg PO DAILY HEART #90 tabs 11/25/21 03/16/24 History tablet,extended release 24 hr memantine 10 mg tablet 10 mg PO BID MEMORY 02/22/23 03/15/24 History vibegron 75 mg tablet (Gemtesa) 75 mg PO DAILY OVERACTIVE BLADDER 02/22/23 03/16/24 History duloxetine 60 mg capsule,delayed 60 mg PO DAILY DEPRESSION 03/17/23 03/15/24 History release cholecalciferol (vitamin D3) 50 2,000 unit PO DAILY vitamin 06/20/23 03/15/24 History mcg (2,000 unit) capsule (D3-1999) omeprazole 40 mg capsule,delayed 40 mg PO DAILY reflux 06/20/23 03/11/24 History release rosuvastatin 40 mg tablet 40 mg PO QHS cholesterol 1 month 06/22/23 03/15/24 Rx #30 tabs polysaccharide iron complex 150 mg 150 mg PO DAILY supplement 30 days 07/27/23 03/11/24 Rx iron capsule (Ferrex) #30 caps nitroglycerin 0.4 mg sublingual 0.4 mg sublingual Q5M PRN CHEST 10/08/23 Unknown Rx tablet (Nitrostat) PAIN #25 tabs ondansetron HCl 4 mg tablet 4 mg PO TID PRN nausea and 12/21/23 Unknown Rx vomiting #20 tabs multivitamin (Daily Multi-Vitamin 1 tab PO DAILY supplement 12/25/23 03/15/24 History tablet) metaxalone 400 mg tablet 400 mg PO BID PRN PRN muscle pain 03/03/24 03/15/24 History topiramate 50 mg tablet (Topamax) 50 mg PO QHS 03/03/24 03/15/24 History ubrogepant 100 mg tablet (Ubrelvy) 100 mg PO ONCE PRN migraine 03/03/24 Unknown History headache flecainide 50 mg tablet 50 mg PO BID heart rate #180 tabs 03/13/24 03/16/24 Rx amlodipine 10 mg tablet 5 mg PO DAILY 03/14/24 03/16/24 History ascorbic acid (vitamin C) 500 mg 500 mg PO DAILY 03/14/24 03/16/24 History tablet (Vitamin C) nortriptyline 50 mg capsule 100 mg PO QHS 03/14/24 03/15/24 History warfarin 5 mg tablet (Jantoven) 2.5 mg PO DINNER 03/14/24 03/14/24 History sucralfate 1 gram tablet 1 g PO BID 3 months #180 tabs 04/05/24 Unknown Rx Allergy/AdvReac Type Severity Reaction Status Date / Time celecoxib (From Celebrex) Allergy Severe Hives, Verified 05/24/24 06:12 swelling, difficulty breathing Sulfa (Sulfonamide Allergy Severe Hives, Verified 05/24/24 06:12 Antibiotics) swelling, difficulty breathing gemfibrozil AdvReac Intermediate Nausea,myal Verified 05/24/24 06:12 gias Family History Mother CVA (cerebral vascular accident) Breast cancer Hypertension CAD (coronary artery disease) Father Hypertension CAD (coronary artery disease) Surgical History History of esophagogastroduodenoscopy (EGD) History of appendectomy History of tilt table evaluation (05/21/16) History of thumb surgery (2004) History of lumpectomy (2009) History of bilateral breast reduction surgery (2008) History of total abdominal hysterectomy (1974) H/O chest tube placement (05/07/01) History of left heart catheterization (12/07/15) Hx of ascending aorta replacement (04/05/01) History of loop recorder Hx of aortic valve replacement, mechanical (04/05/01) History of open reduction and internal fixation (ORIF) procedure (11/30/19) Fracture of ankle, bimalleolar, left, closed Social History household members: none housing: condominium Smoking Status: Never smoker alcohol intake: never substance use type: does not use ROS ROS ED Constitutional Constitutional ED: Denies chills or fever(s) Eyes Eyes: Denies change in vision ENT ENT ED: Denies sore throat Cardiovascular Cardiovascular: Reports other Details: Negative syncope ; Denies chest pain Respiratory/Chest Respiratory/Chest: Denies cough or dyspnea Gastrointestinal Gastrointestinal: Reports abdominal pain; Denies diarrhea, nausea or vomiting Genitourinary Genitourinary ED: Reports urinary frequency; Denies dysuria Musculoskeletal Musculoskeletal: Denies neck pain Integumentary Denies rash Neurologic Neurologic: Reports weakness; Denies headache(s) Hematologic/Lymphatic Hematologic/Lymphatic: Reports easy bleeding and easy bruising EXAM Physical Exam Const Vital Signs: 05/24/24 06:12 05/24/24 06:16 05/24/24 07:35 Temperature 98.0 F 98.0 F 97.3 F L Temperature Source Oral Oral Temporal Pulse Rate 73 72 69 Respiratory Rate 18 18 14 Blood Pressure 135/39 H 135/39 H 148/61 H Blood Pressure Mean 71 71 90 Pulse Ox 98 97 97 Oxygen Delivery Method Room Air Room Air Room Air 05/24/24 08:00 05/24/24 08:25 Temperature 97.5 F L 98.1 F Temperature Source Oral Pulse Rate 69 68 Respiratory Rate 14 14 Blood Pressure 153/62 H 153/62 H Blood Pressure Mean 92 92 Pulse Ox 99 97 Oxygen Delivery Method Room Air Positive well nourished, well developed and obese General Appearance ED: well developed Nutritional Appearance: obese HEENT Reports dry mucous membranes HEENT Narrative: Normocephalic atraumatic Mucous membranes are dry and tacky without signs of airway compromise or secondary infection Mouth ED: Yes dry mucous membranes Mouth: dry mucous membranes Eyes PERRL and EOMs intact bilaterally General Eye ED: Negative for scleral icterus Neck supple Neck Narrative: No bony deformity or step-off of the cervical spine no midline tenderness to palpation No meningeal signs noted Chest Wall palpation of chest normal Resp normal respiratory effort and clear to auscultation bilaterally Resp Narrative: Breath sounds are diminished throughout but overall clear to auscultation with no signs of respiratory distress Cardio regular rate and regular rhythm Rate: other Other Details: Heart is regular rate and rhythm with midsystolic click consistent with history of mechanical aortic valve GI non-distended and no masses GI Narrative: Abdomen is soft and nondistended with hypoactive bowel sounds. There is tenderness to palpation in the suprapubic region without voluntary guarding or rigidity or pulsatile mass Auscultation: hypoactive bowel sounds Palpation: soft Back/Spine Back/Spine Narrative: No bony deformity or step-off of the thoracic or lumbar spine. There is midline pain of the patient of the lower lumbar spine but patient reports this is chronic in nature Extremity normal to inspection Extremity Narrative: Pelvis is stable there is no shortening or external rotation of either lower extremity Neuro oriented x3, CN's II-XII intact bilaterally and no sensory deficits noted Neuro Narrative: Patient is awake and alert to person place and time. She is slow to answer but does answer appropriately. There is no obvious focal neurologic deficit. Sensorium / Orientation: alert Psych Psych Narrative: Patient has a flat affect Skin no rashes or lesions noted Skin Narrative: No abrasions or ecchymosis noted MDM MDM MDM Narrative Medical decision making narrative: Patient arrived to the ER with stable vitals and even though she had reported of confusion per family she is awake and alert to person place and time. She also reports generalized weakness but there is no focal deficit to suggest this is neurologic in nature and therefore there is no need for stroke alert or CTA. As this is most likely infectious/metabolic basic laboratory studies will be obtained along with urine sample. As she is on Coumadin and has fallen there is concern for underlying traumatic subarachnoid subdural hemorrhage so a CT of the head will be obtained as well. With pain in the suprapubic region this is most likely due to UTI but there could be a potential pubic rami fracture so a pelvis x-ray was added. The chest x-ray revealed no obvious pneumonia pelvis x-ray revealed no acute fracture and head CT revealed no underlying traumatic bleed. Blood work showed no leukocytosis or left shift going against urosepsis the patient urine does show changes consistent with infection and her creatinine is elevated at 2.52 consistent with acute kidney injury. Secondary to the infection and a Generalized weakness and do not feel she is safe to be home alone and therefore medicine was contacted and I do agree to accept the patient for continued care. Urine was sent for culture she was given 1 L of fluid and started on Rocephin secondary to the EFFIE and UTI History & Record Review Discussion w/independent historian: Patient and Family Lab Data Attestation: I reviewed the patient's lab results. Labs: Laboratory Results - last 24 hr 05/24/24 05/24/24 05/24/24 06:11 06:36 06:45 WBC 10.3 RBC 3.48 L Hgb 10.3 L Hct 31.7 L MCV 91.1 MCH 29.6 MCHC 32.5 RDW Std Deviation 45.3 H RDW Coeff of Pravin 13.6 Plt Count 177 MPV 10.2 Immature Gran % (Auto) 0.600 Neut % (Auto) 85.4 H Lymph % (Auto) 3.6 L Brule % (Auto) 9.7 Eos % (Auto) 0.4 Baso % (Auto) 0.3 Absolute Neuts (auto) 8.8 H Absolute Lymphs (auto) 0.37 L Nucleated RBC % 0 PT 30.8 H INR 2.9 Sodium 142 Potassium 3.3 Chloride 109 H Carbon Dioxide 19.9 L Anion Gap 14 BUN 39 H Creatinine 2.52 H Estim Creat Clear Calc 20.93 L Est GFR (MDRD) Non-Af 19 L BUN/Creatinine Ratio 15.5 Glucose 109 H Calcium 9.3 Magnesium 2.0 Total Bilirubin 0.44 Direct Bilirubin 0.26 AST 179 H ALT 67 H Alkaline Phosphatase 91 Ammonia 16.0 Total Protein 6.0 Albumin 3.5 Globulin 2.5 TSH 1.330 Urine Color Yellow Urine Clarity Sl. Cloudy Urine pH 5.0 Ur Specific [place] 1.025 Urine Protein 30 H Urine Glucose (UA) Normal Urine Ketones Negative Urine Occult Blood 250 H Urine Nitrite Negative Urine Bilirubin Negative Urine Urobilinogen Normal Ur Leukocyte Esterase 100 H Urine RBC 0-5 SEEN Urine WBC 5-10 SEEN Ur Squamous Epith Cells 0 SEEN Urine Bacteria 3+ Urine Mucus 0 SEEN POC Glucose 117 H Radiography Diagnostic Testing: Clinical Impression(s) from Imaging Studies Pelvis X-Ray 05/24/24 06:27 IMPRESSION: No fracture or dislocation is seen within the pelvis. Reading Location: [id number] Brain CT 05/24/24 07:14 IMPRESSION: Atrophy as described. Stable examination. Reading Location: [facility] 1 view pelvis x-ray as interpreted by the emergency medicine physician reveals no acute fracture or dislocation Chest x-ray as interpreted by the emergency medicine physician reveals no acute infiltrate pneumothorax or pleural effusion Management Discussion w/another healthcare provider: Hospitalist Discharge Plan Dx/Rx/DC Orders Clinical Impression: UTI (urinary tract infection), Vascular dementia, Current use of longterm anticoagulation, Generalized weakness, Acute kidney injury Disposition Disposition: Acute Care Hospital [facility]
[2024-05-24] MEDS: Ceftriaxone 1 GM/50 ML BAG IV (08:13)
[2024-05-24] MEDS: 0.9% Normal Saline (1000mL) 1,000 ML 75 ML IV (10:53)
[2024-05-24] MEDS: 0.9% Saline Lock 10 ML Syringe IV (10:55)
[2024-05-24] MEDS: Metoprolol(XL)Succ 25 MG Tablet 12.5 MG PO (10:56)
[2024-05-24] MEDS: Memantine Hydrochloride 10 MG Tablet PO ×2 (10:56→21:31)
[2024-05-24] MEDS: DULoxetine Hcl 60 MG Capsule PO (10:56)
[2024-05-24] MEDS: Pantoprazole Sodium 40 MG Tablet PO (10:56)
[2024-05-24] MEDS: Flecainide 100 MG Tablet 50 MG PO ×2 (10:56→21:30)
[2024-05-24] MEDS: amLODIPine 5 MG Tablet PO (10:56)
--- NOTE | 2024-05-24 11:52 | PCM.HP.STD ---
HPI - General General Date of Admission: 05/24/24 HPI Narrative CHANNING CANCHOLA, is a 79 F who presents to the hospital with weakness and debility. Family says that she gets this way whenever she gets a UTI at times. No leukocytosis and she remains afebrile however UA is currently consistent with a UTI, she also appears to be dehydrated with an EFFIE and was given IV fluids in the ER as well as started on a dose of Rocephin. Urine culture is pending. She does have a history of dementia and gets delirious in the setting of infection, she was found by family stuck on the toilet in her bathroom that she thought she was at her dentist office. [facility] Medical History (Updated 05/24/24 @ 08:[address] Suraj Galeas, ) Bruising Walker as ambulation aid Acute posthemorrhagic anemia History of atrial fibrillation History of peptic ulcer disease Adverse drug reaction Hematemesis/vomiting blood Depression GI bleed Atrial fibrillation Balance problem Thyroid disease Arthritis History of ulceration History of edema History of echocardiogram History of stress test Cardiology follow-up encounter Gross hematuria Anemia Asthma Sleep apnea Congestive heart failure (CHF) Myocardial infarct Migraines Stroke/cerebrovascular accident CVA (cerebral vascular accident) Depression Chronic pain GERD (gastroesophageal reflux disease) GI bleed Atrial fibrillation Hypertension Seizures Dementia Acute UTI Hyperparathyroidism Stage 4 chronic kidney disease Thoracic aortic aneurysm (TAA) Aortic stenosis with bicuspid valve Near syncope senior living current use of 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 Paroxysmal atrial fibrillation Essential hypertension Migraines Head injuries Ascending aortic aneurysm Urine retention Seizure disorder Physical debility History of gout Hyperuricemia Spinal stenosis Hypothyroidism History of venous thrombosis and embolism Esophageal reflux Home Medications ?Medication ?Instructions ?Recorded ?Last Taken ?Type allopurinol 100 mg tablet 100 mg PO DAILY GOUT #90 tabs 02/22/19 07/07/23 History levothyroxine 100 mcg tablet 100 mcg PO DAILY THYROID #90 tabs 02/22/19 03/16/24 History levetiracetam 1,000 mg tablet 1,000 mg PO BID EPILEPSY 06/06/21 03/16/24 History (Keppra) oxcarbazepine 150 mg tablet 150 mg PO BID EPILESPSY 09/12/21 03/16/24 History metoprolol succinate 25 mg 12.5 mg PO DAILY HEART #90 tabs 11/25/21 03/16/24 History tablet,extended release 24 hr memantine 10 mg tablet 10 mg PO BID MEMORY 02/22/23 03/15/24 History vibegron 75 mg tablet (Gemtesa) 75 mg PO DAILY OVERACTIVE BLADDER 02/22/23 03/16/24 History duloxetine 60 mg capsule,delayed 60 mg PO DAILY DEPRESSION 03/17/23 03/15/24 History release cholecalciferol (vitamin D3) 50 2,000 unit PO DAILY vitamin 06/20/23 03/15/24 History mcg (2,000 unit) capsule (D3-2000) omeprazole 40 mg capsule,delayed 40 mg PO DAILY reflux 06/20/23 03/11/24 History release rosuvastatin 40 mg tablet 40 mg PO QHS cholesterol 1 month 06/22/23 03/15/24 Rx #30 tabs polysaccharide iron complex 150 mg 150 mg PO DAILY supplement 30 days 07/27/23 03/11/24 Rx iron capsule (Ferrex) #30 caps nitroglycerin 0.4 mg sublingual 0.4 mg sublingual Q5M PRN CHEST 10/08/23 Unknown Rx tablet (Nitrostat) PAIN #25 tabs ondansetron HCl 4 mg tablet 4 mg PO TID PRN nausea and 12/21/23 Unknown Rx vomiting #20 tabs multivitamin (Daily Multi-Vitamin 1 tab PO DAILY supplement 12/25/23 03/15/24 History tablet) metaxalone 400 mg tablet 400 mg PO BID PRN PRN muscle pain 03/03/24 03/15/24 History topiramate 50 mg tablet (Topamax) 50 mg PO QHS 03/03/24 03/15/24 History ubrogepant 100 mg tablet (Ubrelvy) 100 mg PO ONCE PRN migraine 03/03/24 Unknown History headache flecainide 50 mg tablet 50 mg PO BID heart rate #180 tabs 03/13/24 03/16/24 Rx amlodipine 10 mg tablet 5 mg PO DAILY 03/14/24 03/16/24 History ascorbic acid (vitamin C) 500 mg 500 mg PO DAILY 03/14/24 03/16/24 History tablet (Vitamin C) nortriptyline 50 mg capsule 100 mg PO QHS 03/14/24 03/15/24 History warfarin 5 mg tablet (Jantoven) 2.5 mg PO DINNER 03/14/24 03/14/24 History sucralfate 1 gram tablet 1 g PO BID 3 months #180 tabs 04/05/24 Unknown Rx Allergy/AdvReac Type Severity Reaction Status Date / Time celecoxib (From Celebrex) Allergy Severe Hives, Verified 05/24/24 06:12 swelling, difficulty breathing Sulfa (Sulfonamide Allergy Severe Hives, Verified 05/24/24 06:12 Antibiotics) swelling, difficulty breathing gemfibrozil AdvReac Intermediate Nausea,myal Verified 05/24/24 06:12 gias Family History Mother CVA (cerebral vascular accident) Breast cancer Hypertension CAD (coronary artery disease) Father Hypertension CAD (coronary artery disease) Surgical History History of esophagogastroduodenoscopy (EGD) History of appendectomy History of tilt table evaluation (05/21/16) History of thumb surgery (2004) History of lumpectomy (2009) History of bilateral breast reduction surgery (2008) History of total abdominal hysterectomy (1974) H/O chest tube placement (05/07/01) History of left heart catheterization (12/07/15) Hx of ascending aorta replacement (04/05/01) History of loop recorder Hx of aortic valve replacement, mechanical (04/05/01) History of open reduction and internal fixation (ORIF) procedure (11/30/19) Fracture of ankle, bimalleolar, left, closed Social History household members: none [facility] Smoking Status: Never smoker alcohol intake: never substance use type: does not use ROS Constitutional Constitutional: Reports weakness; Denies chills, fatigue, fever(s) or malaise Eyes Eyes: Denies blurry vision ENT HEENT: Denies headache(s) or nasal discharge Cardiovascular Cardiovascular: Denies chest pain, dyspnea on exertion or syncope Respiratory/Chest Respiratory/Chest: Denies cough, shortness of breath at rest or shortness of breath with exertion Gastrointestinal Gastrointestinal: Denies constipation, diarrhea, nausea or vomiting Genitourinary Genitourinary: Reports urinary frequency; Denies dysuria Neurologic Neurologic: Reports confusion; Denies focal weakness, numbness or tremor(s) Psychiatric Psychiatric: Denies anxiety or depression Vital Signs Vital Signs Vital Signs: 05/24/24 06:12 05/24/24 06:16 05/24/24 07:35 Temperature 98.0 F 98.0 F 97.3 F L Temperature Source Oral Oral Temporal Pulse Rate 73 72 69 Respiratory Rate 18 18 14 Blood Pressure 135/39 H 135/39 H 148/61 H Blood Pressure Mean 71 71 90 Blood Pressure Source Blood Pressure Position Blood Pressure Location Pulse Ox 98 97 97 Oxygen Delivery Method Room Air Room Air Room Air 05/24/24 08:00 05/24/24 08:25 05/24/24 09:31 Temperature 97.5 F L 98.1 F 97.8 F Temperature Source Oral Oral Pulse Rate 69 68 69 Respiratory Rate 14 14 18 Blood Pressure 153/62 H 153/62 H 178/55 H Blood Pressure Mean 92 92 96 Blood Pressure Source Monitor Blood Pressure Position Semi-Fowlers Blood Pressure Location Left Arm Pulse Ox 99 97 98 Oxygen Delivery Method Room Air Room Air 05/24/24 10:56 Temperature Temperature Source Pulse Rate 69 Respiratory Rate Blood Pressure Blood Pressure Mean Blood Pressure Source Blood Pressure Position Blood Pressure Location Pulse Ox Oxygen Delivery Method Weight Weight: 233 lb 11.04 oz Body Mass Index (BMI) 40.1 Physical Exam Narrative General: Alert, Oriented x2, Cooperative, No apparent distress HEENT: Atraumatic, PERRLA, EOMI, Normocephalic Oral: Moist Mucosa Neck: Supple, No JVD Lungs: Diminished, Normal air movement, No rhonchi, No wheeze, No rales Cardiovascular: Regular rate, Regular Rhythm, Normal S1, Normal S2, No murmurs Abdomen: Soft, Non Tender, Non-Distended, No Hepato-splenomegaly Extremities: No edema, Capillary Refill Less than 3 Seconds Skin: No rashes, No breakdown Musculoskeletal: No Tenderness to Palpation of Joints or Extremities Neurological: No focal neurological deficits, moves all extremities. Has some numbness in her bilateral legs but told nursing that she had it in both feet but then told me that she had in her left foot unclear if this is related to her encephalopathy Psych/Mental Status: Normal Affect, Appropriate Results Lab / Micro Data 05/24/24 06:36 05/24/24 06:36 Labs: Laboratory Results - last 24 hr 05/24/24 06:11: POC Glucose 117 H 05/24/24 06:36: WBC 10.3, RBC 3.48 L, Hgb 10.3 L, Hct 31.7 L, MCV 91.1, MCH 29.6, MCHC 32.5, RDW Std Deviation 45.3 H, RDW Coeff of Pravin 13.6, Plt Count 177, MPV 10.2, Immature Gran % (Auto) 0.600, Neut % (Auto) 85.4 H, Lymph % (Auto) 3.6 L, Greenlee % (Auto) 9.7, Eos % (Auto) 0.4, Baso % (Auto) 0.3, Absolute Neuts (auto) 8.8 H, Absolute Lymphs (auto) 0.37 L, Nucleated RBC % 0, PT 30.8 H, INR 2.9, Sodium 142, Potassium 3.3, Chloride 109 H, Carbon Dioxide 19.9 L, Anion Gap 14, BUN 39 H, Creatinine 2.52 H, Estim Creat Clear Calc 20.93 L, Est GFR (MDRD) Non-Af 19 L, BUN/Creatinine Ratio 15.5, Glucose 109 H, Calcium 9.3, Magnesium 2.0, Total Bilirubin 0.44, Direct Bilirubin 0.26, AST 179 H, ALT 67 H, Alkaline Phosphatase 91, Ammonia 16.0, Total Protein 6.0, Albumin 3.5, Globulin 2.5, TSH 1.330 05/24/24 06:45: Urine Color Yellow, Urine Clarity Sl. Cloudy, Urine pH 5.0, Ur Specific Telephone 1.025, Urine Protein 30 H, Urine Glucose (UA) Normal, Urine Ketones Negative, Urine Occult Blood 250 H, Urine Nitrite Negative, Urine Bilirubin Negative, Urine Urobilinogen Normal, Ur Leukocyte Esterase 100 H, Urine RBC 0-5 SEEN, Urine WBC 5-10 SEEN, Ur Squamous Epith Cells 0 SEEN, Urine Bacteria 3+, Urine Mucus 0 SEEN Micro: Microbiology 05/24/24 06:50 Mucosa - Nose SARS-CoV-2, Influenza & RSV (PCR) - Final Imaging Radiology Impression Chest X-Ray 05/24/24 06:27 IMPRESSION: Cardiomegaly with mild congestion. Reading Location: [facility] Pelvis X-Ray 05/24/24 06:27 IMPRESSION: No fracture or dislocation is seen within the pelvis. Reading Location: [id number] Brain CT 05/24/24 07:14 IMPRESSION: Atrophy as described. Stable examination. Reading Location: [facility] Assessment & Plan Assessment/Plan (1) Acute kidney injury: (2) UTI (urinary tract infection): PLAN: Plan 1. Acute metabolic encephalopathy in the setting of dementia due to UTI and EFFIE ? Continue with IV fluids ? Continue with Rocephin ? Urine cultures pending ? PT/OT ? Will monitor make adjustments as necessary ? Will hold her Gemtesa for her overactive bladder 2. Essential HTN/HLD/status post aortic valve replacement/A-fib ? Continue flecainide ? Continue with Coumadin, monitor INR ? Continue with blood pressure medications ? Will monitor make adjustments as necessary 3. Seizure disorder ? Stabilized ? Continue with her home medications 4. Hypothyroidism ? Stable ? Continue with Synthroid 5. GERD ? Stable ? Continue with PPI 6. Anxiety/depression ? Stable ? Continue with her home medications DVT: Coumadin 75 minutes was spent on direct patient care, including documentation as well as chart review and collaboration with colleagues Charges/Coding Visit Charges Inpatient E&M: 25688 Init Hosp L3
[2024-05-24] MEDS: levETIRAcetam 1,000 MG Tablet 1000 MG PO ×2 (12:19→21:31)
[2024-05-24] MEDS: OXcarbazepine 150 MG Tablet PO (12:19)
[2024-05-24] MEDS: Iron Polysaccharide Complex 150 MG CAPSULE PO (12:19)
--- NOTE | 2024-05-24 14:07 | NURSING ---
pt daughter and pt states that pt reports i am a DNR- no intubation.
[2024-05-24] MEDS: Sucralfate 1 GM Tablet PO (16:35)
[2024-05-24] MEDS: Topiramate 50 MG Tablet PO (21:31)
[2024-05-24] MEDS: Atorvastatin Calcium 80 MG Tablet PO (21:31)
[2024-05-24] MEDS: Nortriptyline 25 MG Capsule 100 MG PO (21:31)
[2024-05-24] MEDS: Nystatin Ointment 1 APPLIC TOPICAL (22:00)
[2024-05-25] VITALS (7 sets, daily range): BP systolic 123–147; BP diastolic 55–69; PULSE 64–73; RESP 15–18; TEMP 36.2–36.7; O2SAT 97–100
[2024-05-25] MEDS: 0.9% Normal Saline (1000mL) 1,000 ML 75 ML IV (00:30)
[2024-05-25] MEDS: Levothyroxine 100 MCG Tablet PO (06:17)
[2024-05-25] MEDS: Sucralfate 1 GM Tablet PO ×2 (06:17→16:59)
[2024-05-25 07:09] LABS: Absolute Neutrophil Count 4.8 X10^3/uL (2.0-7.7); Basophil# 0.03 X10^3/uL; Basophil% 0.5 % (0-1); Eosinophil# 0.34 X10^3/uL; Eosinophils% 5.2 % (0-5); Hematocrit 28.3 % (37-47); Hemoglobin 9.1 g/dL (12.0-15.0); Lymphocyte % 9.2 % (19-41); Mean Corp Hgb Conc 32.2 g/dL (32-36); Mean Corpuscular Hgb 29.5 pg (27.0-32.0); Mean Corpuscular Volume 91.9 fL (81-99); Mean Platelet Vol. 10.3 fl (6.2-12.0); Monocyte# 0.74 X10^3/uL; Monocyte% 11.3 % (0-10); NRBC Flagged by Analyzer 0 % (0-5); Neutrophil # 4.81 X10^3/uL (2.7-7.7); Neutrophil % 73.5 % (47-70); POSITIVE DIFFERENTIAL YES; Platelet Count 139 K/mm3 (150-450); RBC Distribution Width CV 13.6 % (11.6-14.6); RBC Distribution Width SD 45.9 fl (35.1-43.9); Red Blood Count 3.08 M/mm3 (4.2-5.4); White Blood Count 6.5 K/mm3 (4.4-11.0)
[2024-05-25 08:00] LABS: International Normalized Ratio 3.6; Prothrombin Time (Protime)PT. 36.7 SECONDS (11.7-14.9)
[2024-05-25] MEDS: Iron Polysaccharide Complex 150 MG CAPSULE PO (08:58)
[2024-05-25] MEDS: DULoxetine Hcl 60 MG Capsule PO (08:58)
[2024-05-25] MEDS: Allopurinol 100 MG Tablet PO (08:59)
[2024-05-25] MEDS: levETIRAcetam 1,000 MG Tablet 1000 MG PO ×2 (08:59→21:24)
[2024-05-25] MEDS: Nystatin Ointment 1 APPLIC TOPICAL ×2 (08:59→21:24)
[2024-05-25] MEDS: amLODIPine 5 MG Tablet PO (09:00)
[2024-05-25] MEDS: Pantoprazole Sodium 40 MG Tablet PO (09:00)
[2024-05-25] MEDS: Memantine Hydrochloride 10 MG Tablet PO ×2 (09:00→21:25)
[2024-05-25] MEDS: Flecainide 100 MG Tablet 50 MG PO ×2 (09:01→21:25)
[2024-05-25 09:03] LABS: Anion Gap 11 (5-15); BUN 34 mg/dL (4-19); BUN/Creat Ratio 20.9 RATIO (10-20); Chloride 114 mmol/L (98-108); Creatinine, Serum 1.62 mg/dL (0.70-1.20); EST Glomerular Filtration Rate 32 (>60); Estimated Creatinine Clearance 32.34 ml/min (50-250); Glucose 100 mg/dL (70-99); Potassium 3.1 mmol/L (3.3-5.1); Sodium Level 142 mmol/L (133-145)
[2024-05-25] MEDS: Metoprolol(XL)Succ 25 MG Tablet 12.5 MG PO (09:03)
[2024-05-25] MEDS: OXcarbazepine 150 MG Tablet PO ×2 (09:05→21:25)
--- NOTE | 2024-05-25 09:22 | PN.HOSP_ITS ---
Subjective Subjective Feeling better today, no numbness or tingling in her feet Objective Data Objective Data Vital Signs: Vital Signs Temp Pulse Resp BP Pulse Ox O2 Del Method 98.1 F 67 15 139/57 H 97 Room Air 05/25/24 03:00 05/25/24 09:03 05/25/24 03:00 05/25/24 09:03 05/25/24 03:00 05/25/24 03:00 Oxygen Delivery Method Room Air Weight: 233 lb 11.04 oz Body Mass Index (BMI) 40.1 Intake & Output: Intake and Output for Last 24 Hours 05/24/24 05/25/24 05/26/24 03:59 03:59 03:59 Intake Total 2750 / 2750 Output Total 550 / 550 500 / 500 Balance 2200 / 2200 -500 / -500 Lab / Micro Data 05/25/24 06:42 05/25/24 06:42 Labs: Laboratory Results - last 24 hr 05/25/24 06:42: WBC 6.5, RBC 3.08 L, Hgb 9.1 L, Hct 28.3 L, MCV 91.9, MCH 29.5, MCHC 32.2, RDW Std Deviation 45.9 H, RDW Coeff of Pravin 13.6, Plt Count 139 L, MPV 10.3, Immature Gran % (Auto) 0.300, Neut % (Auto) 73.5 H, Lymph % (Auto) 9.2 L, Pettis % (Auto) 11.3 H, Eos % (Auto) 5.2 H, Baso % (Auto) 0.5, Absolute Neuts (auto) 4.8, Absolute Lymphs (auto) 0.60 L, Nucleated RBC % 0, PT 36.7 H, INR 3.6, Sodium 142, Potassium 3.1 L, Chloride 114 H, Carbon Dioxide 18.0 L, Anion Gap 11, BUN 34 H, Creatinine 1.62 H, Estim Creat Clear Calc 32.34 L, Est GFR (MDRD) Non-Af 32 L, BUN/Creatinine Ratio 20.9 H, Glucose 100 H, Calcium 8.0 Micro: Microbiology 05/24/24 06:50 Mucosa - Nose SARS-CoV-2, Influenza & RSV (PCR) - Final Radiography Diagnostic Testing: Radiology Impression Chest X-Ray 05/24/24 06:27 IMPRESSION: Cardiomegaly with mild congestion. Reading Location: [facility] Physical Exam Narrative General: Alert, Oriented x3, Cooperative, No apparent distress HEENT: Atraumatic, PERRLA, EOMI, Normocephalic Oral: Moist Mucosa Neck: Supple, No JVD Lungs: Diminished, Normal air movement, No rhonchi, No wheeze, No rales Cardiovascular: Regular rate, Regular Rhythm, Normal S1, Normal S2, No murmurs Abdomen: Soft, Non Tender, Non-Distended, No Hepato-splenomegaly Extremities: No edema, Capillary Refill Less than 3 Seconds Skin: No rashes, No breakdown Musculoskeletal: No Tenderness to Palpation of Joints or Extremities Neurological: No focal neurological deficits, moves all extremities, sensations intact Psych/Mental Status: Normal Affect, Appropriate Assessment & Plan Assessment/Plan (1) Acute kidney injury: (2) UTI (urinary tract infection): PLAN: Plan 1. Acute metabolic encephalopathy in the setting of dementia due to UTI and EFFIE ? Continue with IV fluids ? Continue with Rocephin ? Urine cultures pending ? PT/OT ? Will monitor make adjustments as necessary ? Will hold her Gemtesa for her overactive bladder 2. Essential HTN/HLD/status post aortic valve replacement/A-fib ? Continue flecainide ?INR today is 3.6, will hold her Coumadin ? Continue with blood pressure medications ? Will monitor make adjustments as necessary 3. Seizure disorder ? Stabilized ? Continue with her home medications 4. Hypothyroidism ? Stable ? Continue with Synthroid 5. GERD ? Stable ? Continue with PPI 6. Anxiety/depression ? Stable ? Continue with her home medications DVT: Supratherapeutic INR Charges/Coding Visit Charges Inpatient E&M: 42528 Subs Hosp L2
[2024-05-25] MEDS: Ceftriaxone 1 GM/50 ML BAG IV (09:34)
[2024-05-25] MEDS: 0.9% Saline Lock 10 ML Syringe IV ×2 (09:35→21:27)
--- NOTE | 2024-05-25 11:12 | CASEMGMT ---
AMY VELEZ Assessment: Face to Face with pt for initial transition planning/care coordination assessment. AMY VELEZ introduced self and role at [facility], pt voices understanding and consents to assessment. Pt is A&O x4 and answers all questions appropriately at this time. Pt lying in bed in no distress. Care providers, pharmacy, and demographics verified/updated. Admitting Dx: UTI with EFFIE Strata Score: 2 PCP:Radhames Specialists:Jenniferi, pain mgmt; Friend, GI; Prah, onc; Adalid, uro; WHG, cardio Preferred Pharmacy: [facility] Insurance: AARP MCR Adv, for Life Prescription Benefit: yes LNOK: Fátima Khan, dtr; Bella Stewart, dtr Living Arrangements: Pt lives alone in a condo with FFSU and 1 step to enter. Pt reports she is I in ADLs and her own meals and laundry. Pt has a cleaning lady every 3 wks and pt dtr picks up pt groceries after she orders them online. Pt denies concerns at home. Transportation: Pt family provides transportation for pt. DME:grab bars, hosp bed, chair lift to basement, medic alert, WW, shower chair, cane HHC/SNF: Pt has had HHC in the past but cannot recall name of agency. Pt has been to [facility] for rehab. Pt states no concerns with going home at time of dc. Pt states she is not going anywhere but home. Pt denies need for any HHC at this time. Pt states when she came in her legs were numb and they are not any longer. Noted Ax2 on her board, pt states that is not the case now. AMY VELEZ to follow therapy today. Pt states she has exercises after her stroke that she was given and she does them every night. She declines the need for therapy or a SN for education. Pt states no further concerns/needs. CM to follow. Advised pt to ask CM if any further questions/concerns/needs arise, voices understanding. Pt Goal: Home Plan: Home pending therapy session today Ileana REYES CM
[2024-05-25] MEDS: Potassium Chloride Oral Tablet 20 MEQ 60 MEQ PO (11:42)
[2024-05-25] MEDS: Ondansetron ODT 4 MG Tablet PO (14:50)
--- NOTE | 2024-05-25 15:35 | CHAPLAIN ---
Type of Pastoral Visit ___ Initial Visit ___ Follow-up Visit ___ On-call Visit ___ General Patient Visit ___ Spiritual Assessment ___ Family Conference ___ Bereavement ___ Rapid Response ___ Code Blue ___ Other (describe below) Pastoral Care Referral From ___ Patient ___ Family ___ Nurse ___ Physician ___ Waredresser ___ Spud Driller ___ Other (describe below) Sacrament/Intervention ___ Active listening ___ Anointing ___ Holiness ___ Bereavement ___ Communion ___ Oralia exploration ___ ___ Life review ___ Prayer ___ Reconciliation ___ Sacrament of Sick ___ Supportive presence ___ Wedding ___ Other (describe below) Pastoral Comments PT and OT were working with the patient when visit was attempted
[2024-05-25] MEDS: Nortriptyline 25 MG Capsule 100 MG PO (21:24)
[2024-05-25] MEDS: Atorvastatin Calcium 80 MG Tablet PO (21:24)
[2024-05-25] MEDS: Topiramate 50 MG Tablet PO (21:25)
[2024-05-26 02:00] VITALS: BP 135/69; PULSE 62; RESP 16; TEMP 36.6; O2SAT 94
[2024-05-26] MEDS: Sucralfate 1 GM Tablet PO (06:05)
[2024-05-26] MEDS: Levothyroxine 100 MCG Tablet PO (06:05)
[2024-05-26 06:50] LABS: Prothrombin Time (Protime)PT. 31.6 SECONDS (11.7-14.9)
--- NOTE | 2024-05-26 07:59 | PCM.DC ---
Discharge Instructions Diet Discharge Diet: Low fat / Low cholesterol DC O2, CPAP, BIPAP needs Home O2 Discharge instructions: No Dressing / Incision Discharge Activity: Return to Normal Activity Dressing / Incision Call your doctor if you observe: Fever of 101 or Higher, Shortness of breath, Dizziness, Fainting spells, Swelling in the ankles, Chest pain and Increased palpitations (irregular heartbeat) Follow Up Care Test Results: Test results from this visit will be discussed in further detail at your follow-up appointment, if applicable. Discharge Plan Admission Admit Date/Time: 05/24/24 08:14 Attending Provider: Raheem Vazquez Primary Care Provider: Kishore Ricci Instructions Additional Instructions / Restrictions: Follow-up with your PCP in 3 to 5 days to monitor your renal function and resolution of urinary tract symptoms Discharge Orders/Prescriptions Prescriptions: New cefdinir 300 mg capsule 300 mg PO BID Qty: 10 0RF Continued allopurinol 100 mg tablet 100 mg PO DAILY Qty: 90 levothyroxine 100 mcg tablet 100 mcg PO DAILY Qty: 90 levetiracetam [Keppra] 1,000 mg tablet 1,000 mg PO BID oxcarbazepine 150 mg tablet 150 mg PO BID metoprolol succinate 25 mg tablet extended release 24 hr 12.5 mg PO DAILY Qty: 90 nitroglycerin [Nitrostat] 0.4 mg tablet, sublingual 0.4 mg sublingual Q5M PRN (Reason: CHEST PAIN ) Qty: 25 3RF Rx Instructions: do not exceed 3 doses per episode metaxalone 400 mg tablet 400 mg PO BID PRN PRN (Reason: muscle pain) topiramate [Topamax] 50 mg tablet 50 mg PO QHS Ubrelvy 100 mg tablet 100 mg PO ONCE PRN (Reason: migraine headache) Rx Instructions: as a single dose; may repeat once in >=2 hours after first dose if needed memantine 10 mg tablet 10 mg PO BID duloxetine 60 mg capsule,delayed release(DR/EC) 60 mg PO DAILY cholecalciferol (vitamin D3) [D3-2000] 50 mcg (2,000 unit) capsule 2,000 unit PO DAILY omeprazole 40 mg capsule,delayed release(DR/EC) 40 mg PO DAILY rosuvastatin 40 mg tablet 40 mg PO QHS 30 Days Qty: 30 4RF amlodipine 10 mg tablet 5 mg PO DAILY ascorbic acid (vitamin C) [Vitamin C] 500 mg tablet 500 mg PO DAILY nortriptyline 50 mg capsule 100 mg PO QHS multivitamin [Daily Multi-Vitamin] Tablet 1 tab PO DAILY polysaccharide iron complex [Ferrex 150] 150 mg iron Capsule 150 mg PO DAILY 30 Days Qty: 30 0RF ondansetron HCl 4 mg tablet 4 mg PO TID PRN (Reason: nausea and vomiting) Qty: 20 0RF flecainide 50 mg tablet 50 mg PO BID Qty: 180 3RF sucralfate 1 gram tablet 1 g PO BID 90 Days Qty: 180 1RF Held Gemtesa 75 mg tablet 75 mg PO DAILY Hold Instructions: Resume on 06/01/24. warfarin [Jantoven] 5 mg tablet 2.5 mg PO DINNER Hold Instructions: Resume on 05/27/24. Protocol: Dose Management Condition: Wednesday Dose/Route: 5 mg Instruction: 1 x 5 mg tablet Condition: Wednesday Dose/Route: 5 mg Instruction: 1 x 5 mg tablet Condition: Wednesday Dose/Route: 5 mg Instruction: 1 x 5 mg tablet Condition: Wednesday Dose/Route: 5 mg Instruction: 1 x 5 mg tablet Condition: Dose/Route: 5 mg Instruction: 1 x 5 mg tablet Condition: Wednesday Dose/Route: 5 mg Instruction: 1 x 5 mg tablet Condition: Wednesday Dose/Route: 5 mg Instruction: 1 x 5 mg tablet Protocol Text: Adjustment Start Date: Wednesday05/17/24 INR Value: 3.6 INR Date: 05/17/24 Recheck Date: 05/24/24 Referrals / Follow Up: Kishore Ricci MD [Primary Care Provider] - Within 1 Week Disposition Disposition (needs filled in before D/C Order can be placed): Home, Self Care
[2024-05-26 08:13] VITALS: BP 133/59; PULSE 67; PULSE 69; RESP 16; RESP 18; TEMP 36.6; O2SAT 97; O2SAT 99
[2024-05-26 08:18] LABS: Anion Gap 11 (5-15); BUN 29 mg/dL (4-19); BUN/Creat Ratio 20.7 RATIO (10-20); Calcium,Total 8.7 mg/dL (7.6-11.0); Carbon Dioxide 18.8 mmol/L (21.0-32.0); Chloride 113 mmol/L (98-108); Creatinine, Serum 1.38 mg/dL (0.70-1.20); EST Glomerular Filtration Rate 38 (>60); Estimated Creatinine Clearance 37.97 ml/min (50-250); Glucose 100 mg/dL (70-99); Potassium 3.9 mmol/L (3.3-5.1); Sodium Level 143 mmol/L (133-145)
[2024-05-26] MEDS: Memantine Hydrochloride 10 MG Tablet PO (08:31)
[2024-05-26] MEDS: Iron Polysaccharide Complex 150 MG CAPSULE PO (08:31)
[2024-05-26] MEDS: amLODIPine 5 MG Tablet PO (08:31)
[2024-05-26] MEDS: Allopurinol 100 MG Tablet PO (08:31)
[2024-05-26] MEDS: DULoxetine Hcl 60 MG Capsule PO (08:31)
[2024-05-26] MEDS: Pantoprazole Sodium 40 MG Tablet PO (08:32)
[2024-05-26] MEDS: OXcarbazepine 150 MG Tablet PO (08:32)
[2024-05-26] MEDS: Flecainide 100 MG Tablet 50 MG PO (08:32)
[2024-05-26] MEDS: Nystatin Ointment 1 APPLIC TOPICAL (08:33)
[2024-05-26] MEDS: levETIRAcetam 1,000 MG Tablet 1000 MG PO (08:33)
[2024-05-26 08:38] VITALS: BP 133/67; PULSE 67
[2024-05-26] MEDS: Metoprolol(XL)Succ 25 MG Tablet 12.5 MG PO (08:38)
--- NOTE | 2024-05-26 08:57 | CASEMGMT ---
Pt with dc order in. AMY CM into pt room, pt sitting up in chair. Pt states she feels much better after working with therapy yesterday. Pt denies need for any HHC. She states she has people who look over her that are her neighbors. Pt to dc this date.
[2024-05-26] MEDS: Ceftriaxone 1 GM/50 ML BAG IV (10:11)
--- NOTE | 2024-05-26 12:59 | DS.PCM_ITS ---
Providers Date of Admission: 05/24/24 Primary Care Physician: Dr. Kishore Ricci MD Reason For Visit: UTI WITH EFFIE Diagnosis Discharge Diagnosis (1) Acute kidney injury: Status: Acute Code(s): N17.9 - Acute kidney failure, unspecified (2) UTI (urinary tract infection): Status: Acute Code(s): N39.0 - Urinary tract infection, site not specified Medications at Discharge Home Medications allopurinol 100 mg tablet 100 mg PO DAILY GOUT #90 tabs 02/22/19 levothyroxine 100 mcg tablet 100 mcg PO DAILY THYROID #90 tabs 02/22/19 levetiracetam 1,000 mg tablet (Keppra) 1,000 mg PO BID EPILEPSY 06/06/21 oxcarbazepine 150 mg tablet 150 mg PO BID EPILESPSY 09/12/21 metoprolol succinate 25 mg tablet,extended release 24 hr 12.5 mg PO DAILY HEART #90 tabs 11/25/21 memantine 10 mg tablet 10 mg PO BID MEMORY 02/22/23 vibegron 75 mg tablet (Gemtesa) 75 mg PO DAILY OVERACTIVE BLADDER 02/22/23 Held on 05/26/24. Instructions: Resume on 06/01/24. duloxetine 60 mg capsule,delayed release 60 mg PO DAILY DEPRESSION 03/17/23 cholecalciferol (vitamin D3) 50 mcg (2,000 unit) capsule (D3-2000) 2,000 unit PO DAILY vitamin 06/20/23 omeprazole 40 mg capsule,delayed release 40 mg PO DAILY reflux 06/20/23 rosuvastatin 40 mg tablet 40 mg PO QHS cholesterol 1 month #30 tabs 06/22/23 polysaccharide iron complex 150 mg iron capsule (Ferrex) 150 mg PO DAILY supplement 30 days #30 caps 07/27/23 nitroglycerin 0.4 mg sublingual tablet (Nitrostat) 0.4 mg sublingual Q5M PRN CHEST PAIN #25 tabs 10/08/23 ondansetron HCl 4 mg tablet 4 mg PO TID PRN nausea and vomiting #20 tabs 12/21/23 multivitamin (Daily Multi-Vitamin tablet) 1 tab PO DAILY supplement 12/25/23 metaxalone 400 mg tablet 400 mg PO BID PRN PRN muscle pain 03/03/24 topiramate 50 mg tablet (Topamax) 50 mg PO QHS 03/03/24 ubrogepant 100 mg tablet (Ubrelvy) 100 mg PO ONCE PRN migraine headache 03/03/24 flecainide 50 mg tablet 50 mg PO BID heart rate #180 tabs 03/13/24 amlodipine 10 mg tablet 5 mg PO DAILY 03/14/24 ascorbic acid (vitamin C) 500 mg tablet (Vitamin C) 500 mg PO DAILY 03/14/24 nortriptyline 50 mg capsule 100 mg PO QHS 03/14/24 warfarin 5 mg tablet (Jantoven) 2.5 mg PO DINNER 03/14/24 Held on 05/26/24. Instructions: Resume on 05/27/24. sucralfate 1 gram tablet 1 g PO BID 3 months #180 tabs 04/05/24 cefdinir 300 mg capsule 300 mg PO BID #10 caps 05/26/24 Hospital Course Operations None Procedures None Summary of Care Provided Minutes Spent on Discharge: 32 Hospital Course: Per HPI: CHANNING CANCHOLA, is a 79 F who presents to the hospital with weakness and debility. Family says that she gets this way whenever she gets a UTI at times. No leukocytosis and she remains afebrile however UA is currently consistent with a UTI, she also appears to be dehydrated with an EFFIE and was given IV fluids in the ER as well as started on a dose of Rocephin. Urine culture is pending. She does have a history of dementia and gets delirious in the setting of infection, she was found by family stuck on the toilet in her bathroom that she thought she was at her dentist office. Hospital course: 1. Acute metabolic encephalopathy in the setting of dementia secondary to an E. coli UTI and EFFIE?79-year-old female presented to the hospital with increased confusion. She does have a baseline history of dementia but she is normally able to manage herself. Urine cultures were obtained which demonstrated an E. coli UTI, she was started on Rocephin on admission and had significant improvement in her mental status. Today sensitivities came back and I was able to discharge her on cefdinir 300 mg p.o. twice daily for 5 days. I did hold her Gemtesa for her overactive bladder as this is likely leading to some retention issues and potentiating infection. I do recommend that she follow-up with her PCP in 3 to 5 days for monitoring and medication adjustments as indicated. I discussed with her the plan for discharge today she expressed understanding of the risks and benefits of going home and would like to go home today. She was evaluated by PT/OT and they felt that she would also be safe for discharge home. 2. Essential hypertension, hyperlipidemia, A-fib, aortic valve replacement, seizure disorder, hypothyroidism, GERD, anxiety, depression are all chronic medical conditions which complicate her care. Her home medications were continued where appropriate. Physical Exam Narrative General: Alert, Oriented x3, Cooperative, No apparent distress HEENT: Atraumatic, PERRLA, EOMI, Normocephalic Oral: Moist Mucosa Neck: Supple, No JVD Lungs: Diminished, Normal air movement, No rhonchi, No wheeze, No rales Cardiovascular: Regular rate, Regular Rhythm, Normal S1, Normal S2, No murmurs Abdomen: Soft, Non Tender, Non-Distended, No Hepato-splenomegaly Extremities: No edema, Capillary Refill Less than 3 Seconds Skin: No rashes, No breakdown Musculoskeletal: No Tenderness to Palpation of Joints or Extremities Neurological: No focal neurological deficits, moves all extremities, sensations intact Psych/Mental Status: Normal Affect, Appropriate Weight / BMI Weight Weight: 233 lb 11.04 oz Body Mass Index (BMI) 40.1 ABG / Lab / Microbiology Data 05/25/24 06:42 05/26/24 06:22 Laboratory: Laboratory Results - last 24 hr 05/26/24 06:22: PT 31.6 H, INR 3.0, Sodium 143, Potassium 3.9, Chloride 113 H, C arbon Dioxide 18.8 L, Anion Gap 11, BUN 29 H, Creatinine 1.38 H, Estim Creat Clear Calc 37.97 L, Est GFR (MDRD) Non-Af 38 L, BUN/Creatinine Ratio 20.7 H, G lucose 100 H, Calcium 8.7 Microbiology: Microbiology 05/24/24 06:45 Urine, Random Urine Culture - Preliminary Escherichia coli Streptococcus agalactiae (B) 05/24/24 06:50 Mucosa - Nose SARS-CoV-2, Influenza & RSV (PCR) - Final D/C Instructions Discharge Diet: Low fat / Low cholesterol Call your doctor if you observe: Fever of 101 or Higher, Shortness of breath, Dizziness, Fainting spells, Swelling in the ankles, Chest pain and Increased palpitations (irregular heartbeat) DC O2, CPAP, BIPAP Needs Home O2 Discharge instructions: No Meaningful Use Info Meaningful Use Meaningful Use Diagnoses (Choose all that apply): None applicable Ischemic Stroke Statin Dosing Therapy Reference: STATIN DOSE THERAPY REFERENCE: * Patients > 75 years receive moderate or high dose statin therapy. * Patients 75 years or YOUNGER should receive HIGH intensity statin dose unless contraindicated. You will be required to document reason for non-treatment if statin daily dose does not meet guidelines. HIGH DOSE STATIN THERAPY DAILY Atorvastatin > than or = to 40 mg Rosuvastatin > than or = to 20 mg Amlodipine + Atorvastatin > than or = to 2.5/40 mg Ezetimibe + Simvastatin 10/80 mg Simvastatin 80mg Discharge Plan Admission Admit Date/Time: 05/24/24 08:14 Attending Provider: Raheem Vazquez Primary Care Provider: Kishore Ricci Instructions Additional Instructions / Restrictions: Follow-up with your PCP in 3 to 5 days to monitor your renal function and resolution of urinary tract symptoms Discharge Orders/Prescriptions Prescriptions: New cefdinir 300 mg capsule 300 mg PO BID Qty: 10 0RF Continued allopurinol 100 mg tablet 100 mg PO DAILY Qty: 90 levothyroxine 100 mcg tablet 100 mcg PO DAILY Qty: 90 levetiracetam [Keppra] 1,000 mg tablet 1,000 mg PO BID oxcarbazepine 150 mg tablet 150 mg PO BID metoprolol succinate 25 mg tablet extended release 24 hr 12.5 mg PO DAILY Qty: 90 nitroglycerin [Nitrostat] 0.4 mg tablet, sublingual 0.4 mg sublingual Q5M PRN (Reason: CHEST PAIN ) Qty: 25 3RF Rx Instructions: do not exceed 3 doses per episode metaxalone 400 mg tablet 400 mg PO BID PRN PRN (Reason: muscle pain) topiramate [Topamax] 50 mg tablet 50 mg PO QHS Ubrelvy 100 mg tablet 100 mg PO ONCE PRN (Reason: migraine headache) Rx Instructions: as a single dose; may repeat once in >=2 hours after first dose if needed memantine 10 mg tablet 10 mg PO BID duloxetine 60 mg capsule,delayed release(DR/EC) 60 mg PO DAILY cholecalciferol (vitamin D3) [D3-2000] 50 mcg (2,000 unit) capsule 2,000 unit PO DAILY omeprazole 40 mg capsule,delayed release(DR/EC) 40 mg PO DAILY rosuvastatin 40 mg tablet 40 mg PO QHS 30 Days Qty: 30 4RF amlodipine 10 mg tablet 5 mg PO DAILY ascorbic acid (vitamin C) [Vitamin C] 500 mg tablet 500 mg PO DAILY nortriptyline 50 mg capsule 100 mg PO QHS multivitamin [Daily Multi-Vitamin] Tablet 1 tab PO DAILY polysaccharide iron complex [Ferrex 150] 150 mg iron Capsule 150 mg PO DAILY 30 Days Qty: 30 0RF ondansetron HCl 4 mg tablet 4 mg PO TID PRN (Reason: nausea and vomiting) Qty: 20 0RF flecainide 50 mg tablet 50 mg PO BID Qty: 180 3RF sucralfate 1 gram tablet 1 g PO BID 90 Days Qty: 180 1RF Held Gemtesa 75 mg tablet 75 mg PO DAILY Hold Instructions: Resume on 06/01/24. warfarin [Jantoven] 5 mg tablet 2.5 mg PO DINNER Hold Instructions: Resume on 05/27/24. Protocol: Dose Management Condition: Wednesday Dose/Route: 5 mg Instruction: 1 x 5 mg tablet Condition: Wednesday Dose/Route: 5 mg Instruction: 1 x 5 mg tablet Condition: Wednesday Dose/Route: 5 mg Instruction: 1 x 5 mg tablet Condition: Wednesday Dose/Route: 5 mg Instruction: 1 x 5 mg tablet Condition: Dose/Route: 5 mg Instruction: 1 x 5 mg tablet Condition: Wednesday Dose/Route: 5 mg Instruction: 1 x 5 mg tablet Condition: Wednesday Dose/Route: 5 mg Instruction: 1 x 5 mg tablet Protocol Text: Adjustment Start Date: Wednesday05/17/24 INR Value: 3.6 INR Date: 05/17/24 Recheck Date: 05/24/24 Referrals / Follow Up: Kishore Ricci MD [Primary Care Provider] - Within 1 Week Disposition Disposition (needs filled in before D/C Order can be placed): Home, Self Care Charges/Coding Visit Charges Inpatient E&M: 26881 Disch Hosp >30min
== END 2024-05-26 11:37 | disposition home or self-care (01) | DRG 689 ==
LOC: ED 08:24 → MS3 08:33
PROVIDERS: Admitting Provider Family Medicine; Emergency Provider Emergency Medicine; PCP Family Medicine; Visit Provider Family Medicine
DX: N39.0 Urinary tract infection, site not specified (principal); G93.41 Metabolic encephalopathy; I13.0 Hypertensive heart and chronic kidney disease with heart failure and stage 1 through stage 4 chronic kidney disease, or unspecified chronic kidney disease; N17.9 Acute kidney failure, unspecified; I50.9 Heart failure, unspecified; G40.909 Epilepsy, unspecified, not intractable, without status epilepticus; I48.91 Unspecified atrial fibrillation; B96.20 Unspecified Escherichia coli [E. coli] as the cause of diseases classified elsewhere; F03.90 Unspecified dementia, unspecified severity, without behavioral disturbance, psychotic disturbance, mood disturbance, and anxiety; E03.9 Hypothyroidism, unspecified; F32.A Depression, unspecified; N18.9 Chronic kidney disease, unspecified; E78.5 Hyperlipidemia, unspecified; K21.9 Gastro-esophageal reflux disease without esophagitis; F41.9 Anxiety disorder, unspecified; G47.30 Sleep apnea, unspecified; I25.2 Old myocardial infarction; Z79.01 Long term (current) use of 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s; Z79.899 Other long term (current) drug therapy; Z86.73 Personal history of transient ischemic attack (TIA), and cerebral infarction without residual deficits
CPT/HCPCS: 36415; 70450; 71045; 72170; 80048; 80076; 81001; 82140; 82962; 83735; 84443; 85025; 85610; 87077; 87086; 87088; 87186; 87631; 97116; 97162; 97166; 97530; 99284; A4216

== ENCOUNTER → 2024-06-09 | Outpatient (CLI) | payer MEDICARE, OTHER, SELFPAY ==
[2024-06-09 11:06] LABS: International Normalized Ratio 2.8
== END | disposition home or self-care (01) ==
LOC: LAB 09:34
PROVIDERS: PCP Family Medicine; Referring Provider Internal Medicine Cardiovascular Disease; Visit Provider Internal Medicine Cardiovascular Disease
DX: F01.50 Vascular dementia, unspecified severity, without behavioral disturbance, psychotic disturbance, mood disturbance, and anxiety (principal); Z95.2 Presence of prosthetic heart valve; Z79.01 Long term (current) use of 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s
CPT/HCPCS: 36415; 85610

== ENCOUNTER → 2024-06-22 | Outpatient (CLI) | payer MEDICARE, OTHER, SELFPAY ==
[2024-06-22 11:28] LABS: International Normalized Ratio 2.7; Prothrombin Time (Protime)PT. 29.3 SECONDS (11.7-14.9)
== END | disposition home or self-care (01) ==
LOC: LAB 09:04
PROVIDERS: PCP Family Medicine; Visit Provider Internal Medicine Cardiovascular Disease
DX: F01.50 Vascular dementia, unspecified severity, without behavioral disturbance, psychotic disturbance, mood disturbance, and anxiety (principal); Z95.2 Presence of prosthetic heart valve; Z79.01 Long term (current) use of 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s
CPT/HCPCS: 36415; 85610

== ENCOUNTER → 2024-07-13 | Outpatient (CLI) | payer MEDICARE, OTHER, SELFPAY ==
[2024-07-13 11:07] LABS: International Normalized Ratio 3.9; Prothrombin Time (Protime)PT. 39.3 SECONDS (11.7-14.9)
== END | disposition home or self-care (01) ==
LOC: LAB 09:34
PROVIDERS: PCP Family Medicine; Visit Provider Internal Medicine Cardiovascular Disease
DX: F01.50 Vascular dementia, unspecified severity, without behavioral disturbance, psychotic disturbance, mood disturbance, and anxiety (principal); Z95.2 Presence of prosthetic heart valve; Z79.01 Long term (current) use of 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s
CPT/HCPCS: 36415; 85610

== ENCOUNTER → 2024-07-17 | Outpatient (CLI) | payer MEDICARE, OTHER, SELFPAY ==
[2024-07-17 11:19] LABS: Absolute Lymphocyte Count 0.94 X10^3/uL (0.83-4.51); Absolute Neutrophil Count 6.1 X10^3/uL (2.0-7.7); Anion Gap 14 (5-15); BUN 21 mg/dL (4-19); BUN/Creat Ratio 12.2 RATIO (10-20); Basophil# 0.03 X10^3/uL; Basophil% 0.4 % (0-1); Calcium,Total 9.1 mg/dL (7.6-11.0); Chloride 105 mmol/L (98-108); Creatinine, Serum 1.71 mg/dL (0.70-1.20); EST Glomerular Filtration Rate 30 (>60); Eosinophil# 0.55 X10^3/uL; Eosinophils% 6.7 % (0-5); Glucose 85 mg/dL (70-99); Hematocrit 33.6 % (37-47); Hemoglobin 10.9 g/dL (12.0-15.0); Lymphocyte # 0.94 X10^3/ul (0.83-4.51); Lymphocyte % 11.5 % (19-41); Mean Corp Hgb Conc 32.4 g/dL (32-36); Mean Corpuscular Hgb 29.7 pg (27.0-32.0); Mean Corpuscular Volume 91.6 fL (81-99); Mean Platelet Vol. 10.2 fl (6.2-12.0); Monocyte# 0.53 X10^3/uL; Monocyte% 6.5 % (0-10); NRBC Flagged by Analyzer 0 % (0-5); Neutrophil # 6.08 X10^3/uL (2.7-7.7); Neutrophil % 74.4 % (47-70); Platelet Count 213 K/mm3 (150-450); Potassium 3.1 mmol/L (3.3-5.1); Pro- Brain NATRIURETIC PEPTIDE 584 pg/mL (<=1800); RBC Distribution Width CV 13.8 % (11.6-14.6); RBC Distribution Width SD 46.9 fl (35.1-43.9); Red Blood Count 3.67 M/mm3 (4.2-5.4); Sodium Level 141 mmol/L (133-145); White Blood Count 8.2 K/mm3 (4.4-11.0)
[2024-07-17 12:03] LABS: International Normalized Ratio 1.5; Prothrombin Time (Protime)PT. 18.2 SECONDS (11.7-14.9)
== END | disposition home or self-care (01) ==
LOC: LAB 09:50
PROVIDERS: PCP Family Medicine; Visit Provider Physician Assistant Medical
DX: Z51.81 Encounter for therapeutic drug level monitoring (principal); Z79.899 Other long term (current) drug therapy; R06.02 Shortness of breath; Z79.01 Long term (current) use of 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s; Z95.2 Presence of prosthetic heart valve; R06.2 Wheezing; R14.0 Abdominal distension (gaseous)
CPT/HCPCS: 36415; 80048; 83880; 85025; 85610

== ENCOUNTER → 2024-07-18 | Outpatient (CLI) | payer MEDICARE, OTHER, SELFPAY | END | disposition home or self-care (01) | LOC: MTLAB 07:43 | PROVIDERS: PCP Family Medicine; Referring Provider Anesthesiology Pain Medicine; Visit Provider Anesthesiology Pain Medicine | DX: F11.20 Opioid dependence, uncomplicated (principal) ==

== ENCOUNTER → 2024-07-19 | Outpatient (CLI) | payer MEDICARE, OTHER, SELFPAY ==
[2024-07-19 11:28] LABS: International Normalized Ratio 1.5
== END | disposition home or self-care (01) ==
LOC: LAB 09:42
PROVIDERS: PCP Family Medicine; Visit Provider Physician Assistant Medical
DX: Z79.01 Long term (current) use of 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s (principal); Z95.2 Presence of prosthetic heart valve
CPT/HCPCS: 36415; 85610

== ENCOUNTER → 2024-07-21 | Outpatient (CLI) | payer MEDICARE, OTHER, SELFPAY ==
[2024-07-21 09:59] LABS: International Normalized Ratio 2.5; Prothrombin Time (Protime)PT. 27.2 SECONDS (11.7-14.9)
== END | disposition home or self-care (01) ==
LOC: LAB 08:11
PROVIDERS: PCP Family Medicine; Visit Provider Physician Assistant Medical
DX: Z95.2 Presence of prosthetic heart valve (principal); Z79.01 Long term (current) use of 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s
CPT/HCPCS: 36415; 85610

== ENCOUNTER 2024-07-27 08:53 | Outpatient (RCR) | payer MEDICARE, OTHER, SELFPAY ==
[2024-07-27 09:59] LABS: International Normalized Ratio 3.5; Prothrombin Time (Protime)PT. 35.6 SECONDS (11.7-14.9)
[2024-07-27 10:32] LABS: Anion Gap 13 (5-15); BUN 29 mg/dL (4-19); BUN/Creat Ratio 14.3 RATIO (10-20); Calcium,Total 9.6 mg/dL (7.6-11.0); Chloride 105 mmol/L (98-108); Creatinine, Serum 2.01 mg/dL (0.70-1.20); EST Glomerular Filtration Rate 24 (>60); Glucose 86 mg/dL (70-99); Potassium 3.8 mmol/L (3.3-5.1); Sodium Level 142 mmol/L (133-145)
== END 2024-07-27 18:00 | disposition home or self-care (01) ==
LOC: LAB 08:53
PROVIDERS: Physician Assistant Medical; PCP Family Medicine; Referring Provider Internal Medicine Cardiovascular Disease; Visit Provider Internal Medicine Cardiovascular Disease
DX: Z51.81 Encounter for therapeutic drug level monitoring (principal); Z79.899 Other long term (current) drug therapy; Z79.01 Long term (current) use of 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s; Z95.2 Presence of prosthetic heart valve
CPT/HCPCS: 36415; 80048; 85610

== ENCOUNTER → 2024-08-10 | Outpatient (CLI) | payer MEDICARE, OTHER, SELFPAY ==
[2024-08-10 11:38] LABS: International Normalized Ratio 2.7; Prothrombin Time (Protime)PT. 29.5 SECONDS (11.7-14.9)
== END | disposition home or self-care (01) ==
LOC: LAB 08:38
PROVIDERS: PCP Family Medicine; Visit Provider Physician Assistant Medical
DX: Z79.01 Long term (current) use of 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s (principal); Z95.2 Presence of prosthetic heart valve
CPT/HCPCS: 36415; 85610

== ENCOUNTER → 2025-01-23 | Outpatient (CLI) | payer MEDICARE, OTHER, SELFPAY ==
[2025-01-23 18:07] LABS: Prothrombin Time (Protime)PT. 45.9 SECONDS (11.7-14.9)
== END | disposition home or self-care (01) ==
LOC: LABSPEC 17:13
PROVIDERS: PCP Family Medicine; Referring Provider Family Medicine; Visit Provider Family Medicine
DX: Z79.01 Long term (current) use of 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s (principal)
CPT/HCPCS: 85610